=== PATIENT | female | born 1990 | race Caucasian/White ===

== ENCOUNTER 2022-09-05 13:59 | Emergency (ER) | payer MEDICAID, SELFPAY ==
[2022-09-05 14:18] VITALS: BP 118/72; PULSE 65; RESP 20; TEMP 36.8; O2SAT 10; BMI 45.7
--- NOTE | 2022-09-05 14:35 | XR_ITS ---
The [address] [address] Patient Name: JOLENE VALENTINO MRN: [id number] date: 1990 Sex: F Assigned Patient Location: ER Current Patient Location: ER Accession/Order Number: [id number] Exam Date: 09/05/2022 15:20 Report Date: 09/05/2022 15:38 At the request of: ZEKE BLOOM Procedure: XR ankle LT min 3V PROCEDURE: XR ankle LT min 3V HISTORY: pain ; left ankle pain; no known injury COMPARISON: None. FINDINGS: BONES:No fracture, acute abnormality, or significant arthropathy. SOFT TISSUES:Medial soft tissue swelling. EFFUSION:None visible. OTHER: Negative. IMPRESSION: 1. Soft tissue swelling of uncertain etiology. 2. No acute bone abnormality or appreciable degenerative joint disease. Electronically authenticated by: LEILANI ALANIS Date: 09/05/2022 15:38
[2022-09-05] MEDS: PREDNISONE 20 MG TABLET 40 MG PO (15:28)
--- NOTE | 2022-09-05 15:28 | ED.GENADUL1 ---
Documented by User: Moon Olea 09/05/22 17:15 HPI - General Adult General Chief complaint: Extremity Injury, Lower Stated complaint: LOWER EXREMITY PAIN LEFT ANKLE Time Seen by Provider: 09/05/22 14:19 Source: patient Mode of arrival: ambulance Limitations: no limitations History of Present Illness HPI narrative: 32-year-old female presents her with a chief complaint of left lateral ankle pain. She states she's had pain for the past week. Denies any known injury or trauma. No significant swelling. extremity is neurovascular intact. She states she does have a history of plantar fasciitis in the right ankle, foot no issues in the left previously. Related Data Home Medications Medication Instructions Recorded Confirmed amlodipine 5 mg tablet 5 mg PO DAILY 09/05/22 09/05/22 duloxetine 40 mg capsule,delayed 40 mg PO DAILY 09/05/22 09/05/22 release Previous Rx's Medication Instructions Recorded prednisone 50 mg tablet 50 mg PO DAILY 5 days #5 tabs 09/05/22 Allergies Allergy/AdvReac Type Severity Reaction Status Date / Time acetaminophen [From Vicodin] Allergy Severe Hives Verified 09/05/22 14:17 hydrocodone [From Vicodin] Allergy Severe Hives Verified 09/05/22 14:17 Review of Systems ROS Narrative All Systems are negative except as noted/marked.All systems reviewed and otherwise negative PFSH PFSH Social History Smoking status: Former smoker Exam Narrative Exam Narrative: Nurses note and vital signs reviewed and patient is not hypoxic. General: The patient appears well and in no apparent distress. Patient is resting comfortably on cart. Skin: Warm, dry, no pallor noted. There is no rash noted. Head: Normocephalic, atraumatic Eye: Normal conjunctiva, no drainage, EOMI. PERRL Back: non-tender, no CVA tenderness bilaterally to percussion. Musculoskeletal: Left lateral ankle tenderness no acute swelling deformity or dislocation. The patient has no evidence of calf tenderness, no pitting edema, symmetrical pulses noted bilaterally Neurological: A&O x4, normal speech Psychiatric: Cooperative Constitutional Vital Signs - 24 hr 09/05/22 14:18 09/05/22 16:06 Temperature 98.3 F Pulse Rate [Monitor] 65 67 Respiratory Rate 20 16 Blood Pressure [Left Arm] 118/72 148/96 H Pulse Oximetry 10 L 98 Oxygen Delivery Method Room Air Course Vital Signs Vital signs: Vital Signs Temperature 98.3 F 09/05/22 14:18 Pulse Rate 65 09/05/22 14:18 Respiratory Rate 20 09/05/22 14:18 Blood Pressure 118/72 09/05/22 14:18 Pulse Oximetry 10 L 09/05/22 14:18 Temperature 98.3 F 09/05/22 14:18 Pulse Rate 67 09/05/22 16:06 Respiratory Rate 16 09/05/22 16:06 Blood Pressure 148/96 H 09/05/22 16:06 Pulse Oximetry 98 09/05/22 16:06 Oxygen Delivery Method Room Air 09/05/22 16:06 Medical Decision Making MDM Narrative Medical decision making narrative: Patient presents her chief complaint left lateral ankle tenderness. X-ray shows no acute dislocation or disorder. Patient be given Maninder wrap and air splint and postop shoe. Exam is consistent with plantar fasciitis or ankle sprain. Patient told to wear postop shoe follow-up with orthopedics. Discharge Plan Discharge Chief Complaint: Extremity Injury, Lower Clinical Impression: Ankle sprain and strain Patient Disposition: Home, Self-Care Time of Disposition Decision: 15:33 Condition: Good Prescriptions / Home Meds: New prednisone 50 mg tablet 50 mg PO DAILY 5 Days Qty: 5 0RF No Action amlodipine 5 mg tablet 5 mg PO DAILY duloxetine 40 mg capsule,delayed release(DR/EC) 40 mg PO DAILY Stand Alone Forms: Work/School Release, Portal Instructions Referrals: Physician,Non-Staff, [Primary Care Provider] - 1 week Follow Up Appointments: [facility] Discharge Date/Time: 09/05/22 16:07 Documented by User: Raghav Peña MD 09/05/22 19:36 HPI - General Adult General Chief complaint: Extremity Injury, Lower Stated complaint: LOWER EXREMITY PAIN LEFT ANKLE Time Seen by Provider: 09/05/22 14:19 Related Data Home Medications Medication Instructions Recorded Confirmed amlodipine 5 mg tablet 5 mg PO DAILY 09/05/22 09/05/22 duloxetine 40 mg capsule,delayed 40 mg PO DAILY 09/05/22 09/05/22 release Previous Rx's Medication Instructions Recorded prednisone 50 mg tablet 50 mg PO DAILY 5 days #5 tabs 09/05/22 Allergies Allergy/AdvReac Type Severity Reaction Status Date / Time acetaminophen [From Vicodin] Allergy Severe Hives Verified 09/05/22 14:17 hydrocodone [From Vicodin] Allergy Severe Hives Verified 09/05/22 14:17 PFSH PFS Social History Smoking status: Former smoker Exam Constitutional Vital Signs - 24 hr 09/05/22 14:18 09/05/22 16:06 Temperature 98.3 F Pulse Rate [Monitor] 65 67 Respiratory Rate 20 16 Blood Pressure [Left Arm] 118/72 148/96 H Pulse Oximetry 10 L 98 Oxygen Delivery Method Room Air Course Vital Signs Vital signs: Vital Signs Temperature 98.3 F 09/05/22 14:18 Pulse Rate 65 09/05/22 14:18 Respiratory Rate 20 09/05/22 14:18 Blood Pressure 118/72 09/05/22 14:18 Pulse Oximetry 10 L 09/05/22 14:18 Temperature 98.3 F 09/05/22 14:18 Pulse Rate 67 09/05/22 16:06 Respiratory Rate 16 09/05/22 16:06 Blood Pressure 148/96 H 09/05/22 16:06 Pulse Oximetry 98 09/05/22 16:06 Oxygen Delivery Method Room Air 09/05/22 16:06 Medical Decision Making [facility] Narrative Medical decision making narrative: Patient presents her chief complaint left lateral ankle tenderness. X-ray shows no acute dislocation or disorder. Patient be given Maninder wrap and air splint and postop shoe. Exam is consistent with plantar fasciitis or ankle sprain. Patient told to wear postop shoe follow-up with orthopedics. Procedure note: Patient had Maninder wrap and air cast and postop shoe applied to left ankle and foot Splint was assisted with . the patient was neurovascularly intact before and after the splint was placed. the affected bones/injured area had proper alignment in a splint. Education on splint care at home was given at bedside. Patient and family have no questions at discharge. Critical Care Time Critical Care Time Attestation: I, Dr Peña, have reviewed the above progress note and course of action in the ER; agree with the above. I have personally seen and evaluated this patient, gone over history and physical, and discussed disposition and treatment plan with the patient. Discharge Plan Discharge Chief Complaint: Extremity Injury, Lower Clinical Impression: Ankle sprain and strain Patient Disposition: Home, Self-Care Time of Disposition Decision: 15:33 Condition: Good Prescriptions / Home Meds: New prednisone 50 mg tablet 50 mg PO DAILY 5 Days Qty: 5 0RF No Action amlodipine 5 mg tablet 5 mg PO DAILY duloxetine 40 mg capsule,delayed release(DR/EC) 40 mg PO DAILY Stand Alone Forms: Work/School Release, Portal Instructions Referrals: Physician,Non-Staff, MD [Primary Care Provider] - 1 week Follow Up Appointments: [facility] Discharge Date/Time: 09/05/22 16:07
[2022-09-05 16:06] VITALS: BP 148/96; PULSE 67; RESP 16; O2SAT 98
== END 2022-09-05 16:07 | disposition home or self-care (01) ==
PROVIDERS: Emergency Provider Emergency Medicine
DX: S93.402A Sprain of unspecified ligament of left ankle, initial encounter (principal); S96.911A Strain of unspecified muscle and tendon at ankle and foot level, right foot, initial encounter; Z79.899 Other long term (current) drug therapy
CPT/HCPCS: 73610; 99283

== ENCOUNTER 2022-09-17 15:03 | Outpatient (OUT) | payer MEDICAID, SELFPAY ==
--- NOTE | 2022-09-17 15:06 | XR_ITS ---
The [address] [address] Patient Name: JOLENE VALENTINO MRN: [id number] date: 1990 Sex: F Assigned Patient Location: [facility] Current Patient Location: [facility] Accession/Order Number: [id number] Exam Date: 09/17/2022 15:08 Report Date: 09/18/2022 00:15 At the request of: PHILOMENA LORD Procedure: XR ankle LT min 3V EXAM: XR ankle LT min 3V 09/17/2022 3:08 PM EDT OH001 CLINICAL STATEMENT: LEFT FOOT PAIN COMPARISON: No prior studies are available at the time of dictation. TECHNIQUE: AP and lateral views of the left ankle are submitted. FINDINGS: The osseous structures are intact and in anatomic alignment. There is no acute fracture and/or dislocation. Narrowed calcaneal pitch. The joint spaces are preserved. There is no significant joint effusion. Medial and anterior ankle soft tissue swelling. Bone mineralization is within normal limits for the patient's age. IMPRESSION: Medial and anterior ankle soft tissue swelling. No acute osseous abnormality. Electronically authenticated by: SOFIA HERNANDEZ Date: 09/18/2022 00:15
== END 2022-09-17 15:04 ==
LOC: RAD 15:03
PROVIDERS: Visit Provider Student in an Organized Health Care Education/Training Program
DX: M25.572 Pain in left ankle and joints of left foot (principal)
CPT/HCPCS: 73610

== ENCOUNTER 2022-11-12 15:00 | Outpatient (RCR) | payer MEDICAID, SELFPAY | END 2022-11-26 13:45 | disposition home or self-care (01) | LOC: PT 15:00 | PROVIDERS: Visit Provider Podiatrist Foot & Ankle Surgery | DX: M76.72 Peroneal tendinitis, left leg (principal); M25.579 Pain in unspecified ankle and joints of unspecified foot | CPT/HCPCS: 97014; 97035; 97110; 97112; 97140; 97162 ==

== ENCOUNTER 2022-12-09 14:10 | Emergency (ER) | payer MEDICAID, SELFPAY ==
[2022-12-09 14:31] VITALS: BP 136/92; PULSE 106; RESP 18; TEMP 37.9; O2SAT 97; BMI 44.9
--- NOTE | 2022-12-09 14:43 | ED_ITS ---
HPI - General Adult General Chief complaint: Weakness Stated complaint: COUGH Time Seen by Provider: 12/09/22 14:11 Source: patient Mode of arrival: walk-in Limitations: no limitations History of Present Illness HPI narrative: patient is a 32-year-old female with a 4-5 day history of Covid-type symptoms. 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 She states she has had generalized weakness, body aches, subjective fevers, congestion. She has had no sputum production, vomiting or diarrhea. She is accompanied by family member who was also being seen for upper respiratory type symptoms. She is not concerned for . No m edications taken prior to arrival. Related Data Home Medications Medication Instructions Recorded Confirmed amlodipine 5 mg tablet 5 mg PO DAILY 09/05/22 09/05/22 duloxetine 40 mg capsule,delayed 40 mg PO DAILY 09/05/22 09/05/22 release Previous Rx's Medication Instructions Recorded prednisone 50 mg tablet 50 mg PO DAILY 5 days #5 tabs 09/05/22 pvxjufxkusgzyht-yzizgdhgtdpndaa-IF 10 ml PO Q6H PRN cold symptoms 12/09/22 2 mg-30 mg-10 mg/5 mL oral syrup #200 mL (Bromfed DM) ondansetron 4 mg disintegrating 4 mg PO Q6H PRN nausea and 12/09/22 tablet vomiting #12 tabs Allergies Allergy/AdvReac Type Severity Reaction Status Date / Time acetaminophen [From Vicodin] Allergy Severe Hives Verified 09/05/22 14:17 hydrocodone [From Vicodin] Allergy Severe Hives Verified 09/05/22 14:17 Review of Systems ROS Constitutional Reports: fever, chills and fatigue Ears, nose, mouth, and throat Reports: nasal congestion; Denies: throat pain Cardiovascular Denies: chest pain Respiratory Reports: cough; Denies: shortness of breath Gastrointestinal Denies: nausea or vomiting Musculoskeletal Denies: back pain or neck pain Integumentary/Breast Denies: rash Neurological Denies: headache PFSH PFSH Social History Smoking status: Former smoker Exam Narrative Exam Narrative: Gen.: Awake, alert, in no distress Head: Normocephalic, atraumatic ENT: Moist mucous membranes Respiratory: No respiratory distress, lungs clear bilaterally Cardio: Regular rate and rhythm Extremities: Moves extremities equally, no injuries noted Psych: Normal mood and affect Neuro: No focal neuro deficit Skin: Warm, dry, intact Constitutional Vital Signs, click to edit/add: Last Vital Signs Temp 100.2 F 12/09/22 14:31 Pulse 106 H 12/09/22 14:31 Resp 18 12/09/22 14:31 BP 136/92 H 12/09/22 14:31 Pulse Ox 97 12/09/22 14:31 O2 Del Method Room Air 12/09/22 14:31 Course Vital Signs Vital signs: Vital Signs Temperature 100.2 F 12/09/22 14:31 Pulse Rate 106 H 12/09/22 14:31 Respiratory Rate 18 12/09/22 14:31 Blood Pressure 136/92 H 12/09/22 14:31 Pulse Oximetry 97 12/09/22 14:31 Oxygen Delivery Method Room Air 12/09/22 14:31 Temperature 100.2 F 12/09/22 14:31 Pulse Rate 106 H 12/09/22 14:31 Respiratory Rate 18 12/09/22 14:31 Blood Pressure 136/92 H 12/09/22 14:31 Pulse Oximetry 97 12/09/22 14:31 Oxygen Delivery Method Room Air 12/09/22 14:31 Medical Decision Making MDM Narrative Medical decision making narrative: Covid test is negative, vital signs stable in the Emergency Room. Patient will be medicated for symptoms, she has a benign exam. Follow-up with PCP and return to the Emergency Room if symptoms change or worsen Medical Records Medical records reviewed: Yes I reviewed the patient's medical records Lab Data Lab results reviewed: Yes I reviewed the patient's lab results Labs: Lab Results 12/09/22 Range/Units 14:35 SARS-CoV-2 (PCR) Negative (NEGATIVE) Discharge Plan Discharge Chief Complaint: Weakness Clinical Impression: URI (upper respiratory infection) Patient Disposition: Home, Self-Care Time of Disposition Decision: 16:05 Condition: Good Prescriptions / Home Meds: New qpzswfryactuvzb-bxkfazeeq-GZ [Bromfed DM] 2-30-10 mg/5 mL syrup 10 ml PO Q6H PRN (Reason: cold symptoms) Qty: 200 0RF ondansetron 4 mg tablet,disintegrating 4 mg PO Q6H PRN (Reason: nausea and vomiting) Qty: 12 0RF No Action amlodipine 5 mg tablet 5 mg PO DAILY duloxetine 40 mg capsule,delayed release(DR/EC) 40 mg PO DAILY prednisone 50 mg tablet 50 mg PO DAILY 5 Days Qty: 5 0RF Instructions: Upper Respiratory Infection (ED) Stand Alone Forms: Portal Instructions Referrals: Physician,Non-Staff, MD [Primary Care Provider] - 1 week
[2022-12-09] MEDS: DEXAMETHASONE SODIUM PHOSPHATE 10 MG/ML VIAL PO (15:07)
[2022-12-09] MEDS: KETOROLAC TROMETHAMINE 10 MG TABLET PO (15:07)
[2022-12-09 15:59] LABS: SARS-CoV-2 Ag NEGATIVE (NEGATIVE)
[2022-12-11 11:39] LABS: SARS-CoV-2 NAA NOT DETECTED (NOT DETECTE)
== END 2022-12-09 16:13 | disposition home or self-care (01) ==
PROVIDERS: Physician Assistant; Emergency Provider Emergency Medicine
DX: J06.9 Acute upper respiratory infection, unspecified (principal); R50.9 Fever, unspecified; Z79.899 Other long term (current) drug therapy; Z87.891 Personal history of nicotine dependence; Z20.822 Contact with and (suspected) exposure to COVID-19
CPT/HCPCS: 87635; 87811; 99283; J1100; U0003

== ENCOUNTER 2023-01-13 13:30 | Outpatient (OUT) | payer MEDICAID, SELFPAY ==
--- NOTE | 2023-01-13 | XR_ITS ---
The [address] [address] Patient Name: JOLENE VALENTINO MRN: [id number] date: 1990 Sex: F Assigned Patient Location: [facility] Current Patient Location: [facility] Accession/Order Number: [id number] Exam Date: 01/13/2023 13:45 Report Date: 01/13/2023 17:00 At the request of: CHRISTINA FERMIN Procedure: XR ankle LT min 3V XR ankle LT min 3V, 01/13/2023 1:45 PM EDT, OH001 INDICATION: LEFT ANKLE PAIN COMPARISON: Radiographs from 09/17/2022. TECHNIQUE: AP, lateral and oblique views of the ankle are submitted. FINDINGS: The bones appear well mineralized. No acute fracture or subluxation is identified. The joint spaces are maintained. No destructive osseous process is identified. There is lateral soft tissue swelling. Moderate pes planus is again noted. XR/XR ankle LT min 3V IMPRESSION: Lateral soft tissue swelling. No acute osseous injury with intact ankle mortise. Electronically authenticated by: KATLYN MONTIEL Date: 01/13/2023 17:00
== END 2023-01-13 13:31 | disposition home or self-care (01) ==
LOC: RAD 13:31
PROVIDERS: Visit Provider Physician Assistant
DX: M76.72 Peroneal tendinitis, left leg (principal)
CPT/HCPCS: 73610

== ENCOUNTER 2023-01-27 10:07 | Outpatient (OUT) | payer MEDICAID, SELFPAY ==
--- NOTE | 2023-01-27 | MR_ITS ---
The [address] [address] Patient Name: JOLENE VALENTINO MRN: [id number] date: 1990 Sex: F Assigned Patient Location: MRI Current Patient Location: MRI Accession/Order Number: [id number] Exam Date: 01/27/2023 10:17 Report Date: 01/27/2023 13:07 At the request of: REGIS VELEZ Procedure: MR ankle LT wo con HISTORY: Chronic lateral left ankle pain. Evaluate for possible peroneal tendon tear. MR ankle LT wo con: 01/27/2023, 10:17 AM EDT COMPARISON: Radiographs left ankle 01/13/2023. TECHNIQUE: Multiplanar, multisequence MRI images of the ankle were obtained without contrast. FINDINGS: A few images are slightly degraded by motion artifact. LIGAMENTS: The anterior talofibular ligament appears within normal limits. The calcaneofibular ligament, posterior talofibular ligament, and distal tibiofibular ligaments appear within normal limits. The deltoid ligament complex appears within normal limits. The superior peroneal retinaculum appears grossly intact. TENDONS: There is lateral subluxation of the peroneus longus tendon from the retromalleolar groove. There is evidence of severe tendinopathy of the inframalleolar portion of the peroneus brevis tendon and there is a large longitudinal split tear of the tendon in this region extending distally 4.5 cm. The other tendons of the ankle appear within normal limits. SINUS TARSI AND TARSAL TUNNEL: No space-occupying mass is seen in the tarsal tunnel or the sinus tarsi. BONES AND JOINTS: The bone marrow signal intensity is age appropriate. No unstable osteochondral defect of the tibiotalar joint is identified. There are mild degenerative changes of the dorsal aspect of the talonavicular joint. PLANTAR FASCIA: There is no abnormal thickening or abnormal signal intensity of the plantar fascia and there is no surrounding soft tissue edema to suggest plantar fasciitis. SOFT TISSUES: No significant soft tissue swelling is seen. MR/MR ankle LT wo con IMPRESSION: 1. There is severe tendinopathy of the inframalleolar portion of the peroneus brevis tendon and there is a longitudinal split tear of the tendon extending from the inframalleolar region distally 4.5 cm. There is also lateral subluxation of the peroneus longus tendon from the retromalleolar groove, but no significant tendinopathy or tear of this tendon is seen. 2. No ligament injury or osteochondral defect is seen. Electronically authenticated by: LUZ ROACH Date: 01/27/2023 13:07
== END 2023-01-27 10:08 | disposition home or self-care (01) ==
LOC: MRI 10:07
PROVIDERS: Visit Provider Podiatrist Foot & Ankle Surgery
DX: S96.812A Strain of other specified muscles and tendons at ankle and foot level, left foot, initial encounter (principal); M76.72 Peroneal tendinitis, left leg
CPT/HCPCS: 73721

== ENCOUNTER 2023-04-07 13:34 | Outpatient (OUT) | payer MEDICAID, SELFPAY ==
--- NOTE | 2023-04-07 13:40 | ECG_ITS ---
The [facility] Test Date: 2023-04-07 Pat Name: JOLENE VALENTINO Department: Room: - Gender: Female [employer]: : 1990 Requested By: REGIS VELEZ Order Number: [id number] Reading MD: ARLENE BELTRAN Measurements Intervals [place] Rate: 61 P: 28 MO: 152 QRS: 27 QRSD: 101 T: -1 QT: 382 QTc: 386 Interpretive Statements SINUS RHYTHM Compared to ECG 12/26/2020 10:31:00 Electronically Signed On 04-07-2023 22:24:45 EST by ARLENE BELTRAN
--- NOTE | 2023-04-07 14:17 | PM.PRESUREVA ---
History of Present Illness History of Present Illness Chief complaint: other specified joint disorders left foot Narrative: Patient presents for preadmission testing. The patient reports left ankle pain. The pain is worse with ambulation and certain activities. It is better with rest. She states she did not have any known trauma or injury but she's been having pain for a few months. She denies numbness, tingling, weakness, or any other complaints. She states she did take meloxicam but it did not help with her discomfort. Review of Systems ROS Narrative REVIEW OF SYSTEMS: Negative except as stated in HPI, ten or more systems reviewed. Constitutional: No fever , chills, weakness ENT: No sore throat or epistaxis Cardiovascular: No edema, chest pain, palpitations, or activity intolerance Respiratory: No shortness of breath, cough, or wheezing Gastrointestinal: No abdominal pain, constipation, diarrhea, or vomiting Genitourinary: No dysuria or hematuria Neurological: No numbness, tingling, weakness, or headache Psychiatric: No mood changes PFSH [facility] Medical History (Updated 04/07/23 @ 14:22 by Denise Reynolds NP) Peroneal tendinitis ?M76.70 - Peroneal tendinitis, unspecified leg (ICD-10) Strain of left peroneal muscle or tendon ?S86.312A - Strain of muscle(s) and tendon(s) of peroneal muscle group at lower leg level, left leg, initial encounter (ICD-10) Left ankle instability ?M25.372 - Other instability, left ankle (ICD-10) Heartburn ?R12 - Heartburn (ICD-10) Migraine ?G43.909 - Migraine, unspecified, not intractable, without status migrainosus (ICD-10) Anxiety ?F41.9 - Anxiety disorder, unspecified (ICD-10) Depression ?F32.A - Depression, unspecified (ICD-10) PONV (postoperative nausea and vomiting) ?R11.2 - Nausea with vomiting, unspecified (ICD-10) ?Z98.890 - Other specified postprocedural states (ICD-10) Menorrhagia ?N92.0 - Excessive and frequent menstruation with regular cycle (ICD-10) Dysmenorrhea ?N94.6 - Dysmenorrhea, unspecified (ICD-10) Abnormal uterine bleeding (AUB) ?N93.9 - Abnormal uterine and vaginal bleeding, unspecified (ICD-10) GERD (gastroesophageal reflux disease) ?K21.9 - Gastro-esophageal reflux disease without esophagitis (ICD-10) Fibromyalgia ?M79.7 - Fibromyalgia (ICD-10) Kidney stones (~2012) ?N20.0 - Calculus of kidney (ICD-10) Anemia (~2014) ?D64.9 - Anemia, unspecified (ICD-10) Leg pain ?M79.606 - Pain in leg, unspecified (ICD-10) Pain, dental ?K08.89 - Other specified disorders of teeth and supporting structures (ICD-10) Flank pain ?R10.9 - Unspecified abdominal pain (ICD-10) Headache ?R51.9 - Headache, unspecified (ICD-10) Plantar fasciitis ?M72.2 - Plantar fascial fibromatosis (ICD-10) Equinus contracture of ankle ?M24.573 - Contracture, unspecified ankle (ICD-10) Foot pain ?M79.673 - Pain in unspecified foot (ICD-10) Posterior tibial tendon dysfunction (PTTD) of right lower extremity ?M76.821 - Posterior tibial tendinitis, right leg (ICD-10) Hypertension ?I10 - Essential (primary) hypertension (ICD-10) Superficial laceration of thumb (10/22/20) ?S61.019A - Laceration without foreign body of unspecified thumb without damage to nail, initial encounter (ICD-10) Surgical History (Updated 04/07/23 @ 13:33 by Denise Reynolds NP) H/O arthroscopy of knee ?Z98.890 - Other specified postprocedural states (ICD-10) H/O section (~2014) ?Z98.891 - History of uterine scar from previous surgery (ICD-10) History of cholecystectomy (~2012) ?Z90.49 - Acquired absence of other specified parts of digestive tract (ICD-10) H/O tubal ligation ?Z98.51 - Tubal ligation status (ICD-10) H/O foot surgery (12/22/19) ?Z98.890 - Other specified postprocedural states (ICD-10) History of endometrial ablation (01/04/21) ?Z98.890 - Other specified postprocedural states (ICD-10) Family History (Updated 04/07/23 @ 13:27 by Denise Reynolds NP) Other Family history of cancer Family history of diabetes mellitus Family history of hypertension Family history of stroke Social History (Updated 04/07/23 @ 13:58 by Denise Reynolds NP) Within the past year, how often did you have a drink containing alcohol: never Score interpretation: A score less than 3 is consistent with normal alcohol consumption. 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 2-Lele) lisinopril 20 2 tab PO DAILY 04/07/23 04/07/23 History mg-hydrochlorothiazide 12.5 mg tablet meloxicam 15 mg tablet 15 mg PO DAILY 04/07/23 04/07/23 History metformin 500 mg tablet,extended 500 mg PO DAILY 04/07/23 04/07/23 History release 24 hr omeprazole 20 mg capsule,delayed 20 mg PO DAILY 04/07/23 04/07/23 History release Allergies Allergy/AdvReac Type Severity Reaction Status Date / Time acetaminophen [From Vicodin] Allergy Severe Hives Verified 04/07/23 13:54 hydrocodone [From Vicodin] Allergy Severe Hives Verified 04/07/23 13:54 Exam Narrative Exam Narrative: Constitutional: Awake, alert, comfortable, well-appearing, nontoxic, interactive, vital signs as charted Head: Normocephalic, atraumatic Neck: Supple, normal appearance, normal range of motion, no meningeal signs, no lymphadenopathy Respiratory: No respiratory distress, breath sounds clear Cardiovascular: Regular rate and rhythm, strong and regular heart tones Musculoskeletal: Left posterior ankle tenderness with palpation, range of motion limited due to pain, good capillary refill, sensation intact Skin: No rashes or induration, no lesions, only visible skin inspected Neuro: No neurological deficits, normal sensation Psychiatric: Oriented ?3, normal affect Assessment and Plan Assessment and Plan (1) Left ankle instability: (2) Strain of left peroneal muscle or tendon: (3) Peroneal tendinitis: Plan Left ankle arthroscopy with ligament and tendon repairs as needed scheduled with Dr. Mayorga 04/16/2023.
[2023-04-07 14:20] LABS: Basophils Percent Auto 0.1 % (0.2-2.0); Eosinophils Absolute Auto 0.1 10^3/uL (0.0-0.7); Eosinophils Percent Auto 0.7 % (0.9-7.0); Hematocrit 38.7 % (36.0-48.0); Hemoglobin 12.2 g/dL (12.0-16.0); Immature Granulocytes Abs Auto 0.02 10^3/uL (0.00-0.03); Immature Granulocytes Pct Auto 0.2 % (0.0-0.5); Lymphocytes Absolute Auto 2.1 10^3/uL (1.2-3.8); Lymphocytes Percent Auto 25.5 % (20.5-60.0); Mean Corpuscular HGB Conc 31.5 g/dL (29.9-35.2); Mean Corpuscular Hemoglobin 28.2 pg (26.7-34.0); Mean Corpuscular Volume 89.4 fL (81.0-99.0); Monocytes Absolute Auto 0.5 10^3/uL (0.3-0.8); Neutrophils Absolute Auto 5.5 10^3/uL (1.4-6.5); Neutrophils Percent Auto 67.5 % (43.0-75.0); Platelet Count 232 10^3/uL (150-450); Red Blood Count 4.33 10^6/uL (4.20-5.40); Red Cell Distribution Width 12.4 % (11.0-15.0); White Blood Count 8.2 10^3/uL (4.0-11.0)
[2023-04-07 14:52] LABS: BUN Creatinine Ratio 16.4; Calcium 9.4 mg/dL (8.5-10.1); Carbon Dioxide 28.3 mmol/L (21.0-32.0); Chloride 102 mmol/L (98-107); Estimated GFR (African America >60 (>=60); Estimated GFR (Non-African Ame >60 (>=60); Glucose 108 mg/dL (74-106); Potassium 3.3 mmol/L (3.5-5.1); Sodium 135 mmol/L (136-145)
== END 2023-04-07 13:35 | disposition home or self-care (01) ==
LOC: PST 13:37
PROVIDERS: PCP Nurse Practitioner Family; Visit Provider Podiatrist Foot & Ankle Surgery
DX: Z01.812 Encounter for preprocedural laboratory examination (principal); Z01.810 Encounter for preprocedural cardiovascular examination; Z01.818 Encounter for other preprocedural examination; M25.872 Other specified joint disorders, left ankle and foot; M25.372 Other instability, left ankle
CPT/HCPCS: 80048; 85025; 93005; G0463

== ENCOUNTER 2023-04-16 06:06 | Day surgery (SDC) | payer MEDICAID, SELFPAY ==
[2023-04-07 14:15] VITALS: BP 126/84; PULSE 72; RESP 18; TEMP 36.3; O2SAT 98; BMI 44.1
[2023-04-16] VITALS (11 sets, daily range): BP systolic 110–143; BP diastolic 68–92; PULSE 60–79; RESP 13–18; TEMP 36–37.5; O2SAT 90–99; BMI 44.8
--- OUTSIDE RECORDS SUMMARY | 2023-04-16 06:08 | XMS_ITS | CCD ---
Author Name Unknown Address [address] [place] [address] Organization [facility] Care Team Providers Care Gaming Cage Cashier Name Role Phone Ranjith Tracy Attending Unavailable PETAR AKINS~[phone] UNKNOWN Primary Care Unavailable Easterwood, Tea Unavailable Natalie Blackwell Unavailable Johann Moe Unavailable EASTERWOOD, TEA Admitting Unavailable EASTERWOOD, TEA Primary Care Unavailable EASTERWOOD, TEA Attending Unavailable BARRINGTON KEARNS Attending Unavailable EASTERWOOD, TEA Primary Care Unavailable AMARI ., AMBROCIO PAULINO Consulting Unavailabl e BARRINGTON KEARNS Admitting Unavailable NATALIE HERNANDEZ Consulting Unavailable BEKA REYNOSO Consulting Unavailable EASTERWOOD, TEA Attending Unavailable REYES, OLI Primary Care Unavailable EASTERWOOD, TEA Admitting Unavailable LISSA ., DR HERNANDEZ Attending Unavailable LISSA ., DR HERNANDEZ Admitting Unavailable REYES, OLI Primary Care Unavailable LISSA ., DR HERNANDEZ Consulting Unavailable REYES, OLI Consulting Unavailable REYES, OLI Attending Unavailable REYES, OLI Admitting Unavailable REYES, OLI Primary Care Unavailable EASTERWOOD, TEA Admitting Unavailable EASTERWOOD, TEA Primary Care Unavailable EASTERWOOD, TEA Consulting Unavailable EASTERWOOD, TEA Attending Unavailable EASTERWOOD, TEA Primary Care Unavailable EASTERWOOD, TEA Attending Unavailable DR LEILANI ALANIS Consulting Unavailable EASTERWOOD, TEA Admitting Unavailable EASTERWOOD, TEA Consulting Unavailable oMises Mccabe Unavailable Neftali Snow Unavailable RUTH ANN Donovan Primary Care Provider MD Johann Moe Attending Provider Uriah Skinner Unavailable Elinor Workman Unavailable RUTH ANN Donovan Primary Care Provider RUTH ANN Donovan Attending Provider [phone] MD Uriah Skinner Attending Provider [phone] MD Karoline Londono Jr Emergency Provider Karoline Londono Jr Attending Unavailable Tea Donovan Primary Care Unavailable Karoline Londono Jr Admitting Unavailable Tea Donovan Primary Care Unavailable Uriah Skinner Admitting Unavailable Uriah Skinner Attending Unavailable Tea Donovan Admitting Unavailable Tea Donovan Primary Care Unavailable Tea Donovan Attending Unavailable Tea Donovan Primary Care Unavailable Johann Moe Admitting Unavailable Johann Moe Attending Unavailable Allergies Allergy Classification Reported Allergen(s) Allergy Type Date of Onset Reaction(s) Facility (20 sources) Acetaminophen / HYDROcodone; Translations: [Vicodin] Drug Allergy 6 itching and hives [facility] Repository (20 sources) busPIRone Drug Allergy 2 [facility] Other (20 sources) Cephalexin Drug Allergy 3 [employer] [facility] Other (1 source) Cephalexin Drug Allergy 2 [facility] Repository (4 sources) HYDROcodone; Translations: [hydrocodone] Drug Allergy 9 Itching [facility] Medications Current Medications Medication Drug Class(es) Dates Sig (Normalized) Sig (Original) 0.5 ML tirzepatide 5 MG/ML Auto-Injector [Mounjaro] (2 sources) Start: 08-12-2022 inject 2.5 mg by subcutaneous injection every week Mounjaro 2.5 MG/0.5ML 2.5mg Subcutaneous weekly for 30 days July, Active amLODIPine 5 mg oral tablet (20 sources) Dihydropyridine Calcium Channel Gogo Start: 07-28-2022 take 5 mg by mouth once daily Amlodipine Active 5 MG PO Daily July 27, 2022 11:00pm take 2 tablets by mouth once con ly amLODIPine Besylate 2.5 MG 2 tabs Orally Once a day for 30 days *INCREASETO 2 tabs daily=5mg* Active take 1 tablet by wing th every twenty-four hours amLODIPine Besylate 2.5 MG 1 tablet Oral ly Once a day for 90 days Active amoxicillin 500 mg oral capsule (1 source) Penicillin-class Antibacterial Start: 12-11-2022 take 1 capsule by mouth every twelve hours Amoxicillin 500 MG 1 tablet Orally every 12 hrs for 10 days Nov, Active busPIRone hydrochloride 15 mg oral tablet (13 sources) take 2 tablets by mouth once daily busPIRone HCl 15 MG 2 tabs Orally once a day for 30 days Active take 1 tablet by wing th every twenty-four hours busPIRone HCl 15 MG 1 tablet at bedtime Orally once a day for 30 days Active take 1 tablet by wing th every twenty-four hours busPIRone HCl 10 MG 1 tablet at bedtime Orally once a day for 14 days Active cephalexin 500 mg oral capsule (8 sources) Cephalosporin Antibacterial Start: 05-08-2022 take 1 capsule by mouth every twelve hours Cephalexin 500 MG 1 capsule Orally every 12 hrs for 7 days Apr, Active cyclobenzaprine hydrochloride 10 mg oral tablet (20 sources) Muscle Relaxant Start: 10-14-2021 take 1 tablet by mouth every twenty-four hours Cyclobenzaprine HCl 10 MG 1 tablet at bedtime as needed Orally Once a day for 30 days Sep, Active DULoxetine 40 mg delayed release oral capsule (20 sources) Serotonin and Norepinephrine Reuptake Inhibitor Start: 06-23-2022 take 1 capsule by mouth every twenty-four hours DULoxetine HCl 40 MG 1 capsule Orally Once a day for 90 days May, Active Start: 06-23-2022 take 30 mg by mouth once daily Duloxetine Active 30 MG PO Daily July 27, 2022 11:00pm fluticasone propionate 0.05 mg/actuat metered dose nasal spray (20 sources) Corticosteroid Start: 07-28-2022 Fluticasone Pr opionate Active 1 SPRAY INTRANASAL Daily July 27, 2022 11:00pm Start: 01-22-2022 take 2 spray(s) nasa l route once daily Fluticasone Propionate 50 MCG/ACT 2 sprays Nasally Once a day for 14 day(s) Dec, Not-Taking hydroCHLOROthiazide 12.5 mg / lisinopril 20 mg oral tablet (20 sources) Thiazide Diuretic, Angiotensin Converting Enzyme Inhibitor Start: 07-28-2022 take 1 tablet by mouth once daily Lisinopril-Hydrochlorothiazide Active 1 TAB PO Daily July 27, 2022 11:00pm take 2 tablets by mo [facility] once daily Lisinopril-hydroCHLOROthiazide 20-12.5 M G 2 tablet Orally Once a day Active take 2 tablets by mo [facility] every twenty-four hours hydrocortisone 5 mg/ml topical cream (2 sources) Corticosteroid Start: 02-23-2023 Hydrocortisone 0.5 % 1 application Externally Twice a day for 14 days Jan, Active Start: 02-23-2023 Hydrocortisone 0.5 % 1 application Externally Twice a day for 14 days Jan, Active 3 ml liraglutide 6 mg/ml pen injector (7 sources) GLP-1 Receptor Agonist Start: 01-06-2023 inject 0.6 mg by subcutaneous injection once daily, then inject 0.6 mg by subcutaneous injection every week, then inject 1.8 mg by subcutaneous injection once daily Victoza 18 MG/3ML Take 0.6 mg daily and if no side effects go up by 0.6 mg weekly up to a total of 1.8 mg Subcutaneous daily for 30 days Dec, Active inject 1.8 mg by sub cutaneous injection once daily Victoza 18 MG/3ML 1.8 mg Subcutaneous daily for 30 days Active 24 hr metFORMIN hydrochloride 500 mg extended release oral tablet (12 sources) Biguanide Start: 10-14-2022 take 1 tablet by mouth every twenty-four hours metFORMIN HCl ER 500 MG 1 tablet with breakfast Orally Once a day for 30 day(s) Sep, Active omeprazole 40 mg delayed release oral capsule (20 sources) Proton Pump Inhibitor Start: 02-14-2022 take 1 capsule by mouth once daily Omeprazole 40 MG 1 capsule 30 minutes before morning meal Orally Once a day for 90 days Jan, Active Start: 02-14-2022 take 20 mg by mouth once daily Omeprazole Active 20 MG PO Daily July 27, 2022 11:00pm Start: 09-17-2021 take 1 capsule by mo uth every twenty-four hours Omeprazole 10 MG 1 capsule Orally Once a day for 30 day(s) Aug, Active phentermine hydrochloride 37.5 mg oral tablet (11 sources) Sympathomimetic Amine Anorectic Start: 05-01-2022 take 1 tablet by mouth once daily Phentermine HCl 37.5 MG 1 tablet Orally Once a day for 30 days Apr, Active Start: 02-13-2022 take 1 capsule by mo uth every twenty-four hours Phentermine HCl 37.5 MG 1 capsule Orally Once a day for 30 days Jan, Active predniSONE 20 mg oral tablet (3 sources) Start: 01-22-2022 take 1 tablet by mouth every twelve hours predniSONE 20 MG 1 tablet Orally 2 times a day for 5 day(s) Dec, Active 24 hr venlafaxine 75 mg extended release oral capsule (20 sources) Serotonin and Norepinephrine Reuptake Inhibitor take 1 capsule by mouth every twenty-four hours Venlafaxine HCl ER 75 MG 1 capsule with food Orally Once a day for 90 days Active take 1 capsule by mo uth every twenty-four hours Venlafaxine HCl ER 37.5 MG 1 capsule wit h food Orally Once a day Active Completed/Discontinued Medications Medication Drug Class(es) Dates Sig (Normalized) Sig (Original) cefTRIAXone (20 sources) Cephalosporin Antibacterial Start: 01-21-2010 Rocephin 500 mg Dec, 500MG/2ML mupirocin 0.02 mg/mg topical ointment (3 sources) RNA Synthetase Inhibitor Antibacterial Start: 07-07-2018 End: 07-28-2022 Mupirocin Discontinued 1 APPLIC TOPICAL Twice daily July 06, 2018 11:00pm July 28, 2022 12:33pm sulfamethoxazole 800 mg / trimethoprim 160 mg oral tablet (3 sources) Dihydrofolate Reductase Inhibitor Antibacterial, Sulfonamide Antimicrobial Start: 07-07-2018 End: 07-28-2022 take 1 tablet by mouth twice daily Sulfamethoxazole- Trimethoprim (Bactrim Ds) 800-160 mg tablet Discontinued 1 TAB PO Twice daily July 06, 2018 11:00pm July 28, 2022 12:33pm Problems Active Problems Problem Classification Problem Date Documented Da te Episodic/Chronic Anxiety disorders (20 sources) Anxiety; Translations: [Anxiety disorder, unspecified] Onset: 2 Resolved: 2 Chronic Coma; stupor; and brain damage (20 sources) Daytime somnolence; Translations: [Somnolence] Onset: 2 Resolved: 2 Episodic Diseases of mouth; excluding dental (20 sources) Disorder of tongue; Translations: [TONGUE DISORDER NOS] Episodic Disorders of lipid metabolism (20 sources) Hyperlipidemia; Translations: [Hyperlipidemia, unspecified] Onset: 2 Resolved: 2 Chronic Esophageal disorders (20 sources) Gastroesophageal reflux disease without esophagitis; Translations: [Gastro-esophageal reflux disease without esophagitis] Onset: 2 Resolved: 2 Chronic Essential hypertension (20 sources) Hypertensive disorder; Translations: [Hypertension, unspecified] Onset: 2 Resolved: 2 Chronic Gastritis and duodenitis (20 sources) Duodenitis; Translations: [Duodenitis without bleeding] Onset: 2 Episodic Genitourinary symptoms and ill-defined conditions (20 sources) Female genital organ symptoms; Translations: [Unspecified symptom associated with female genital organs] Episodic Headache; including migraine (14 sources) Migraine; Translations: [Migraine, unspecified, not intractable, without status migrainosus] Chronic Immunizations and screening for infectious disease (20 sources) Contact with and (suspected) exposure to other viral communicable diseases; Translations: [Encounter for screening for human papillomavirus (HPV)] Onset: 2 Episodic Malaise and fatigue (20 sources) Fatigue; Translations: [Chronic fatigue, unspecified] Onset: 2 Resolved: 2 Chronic Malaise and fatigue (1 source) Other fatigue; Translations: [OTHER FATIGUE] Onset: 3 Episodic Miscellaneous mental health disorders (20 sources) Psychophysiologic insomnia; Translations: [Psychophysiologic insomnia] Chronic Mood disorders (20 sources) Depressive disorder; Translations: [Depression, unspecified depression type] Chronic Other aftercare (1 source) Other intermodal customer service (current) drug therapy; Translations: [OTH BODY SHOP TECHNICIAN CURRENT DRUG THERAPY] Onset: 3 Episodic Other aftercare (1 source) Encounter for follow-up examination after completed treatment for conditions other than malignant neoplasm Episodic Other aftercare (2 sources) Encounter for therapeutic drug level monitoring; Translations: [Encounter for therapeutic drug level monitoring] Onset: 3 Episodic Other connective tissue disease (20 sources) Fibromyalgia; Translations: [Fibromyalgia] Episodic Other ear and sense organ disorders (20 sources) Otalgia; Translations: [Otalgia, unspecified] Episodic Other eye disorders (20 sources) Subconjunctival hemorrhage; Translations: [Conjunctival hemorrhage, left eye] Episodic Other eye disorders (1 source) Conjunctival hemorrhage, left eye Episodic Other gastrointestinal disorders (15 sources) Diarrhea; Translations: [Diarrhea, unspecified] Episodic Other gastrointestinal disorders (1 source) Diarrhea, unspecified Episodic Other injuries and conditions due to external causes (15 sources) Contusion; Translations: [Other injury of unspecified body region, initial encounter] Episodic Other injuries and conditions due to external causes (1 source) Other injury of unspecified body region, initial encounter Episodic Other liver diseases (20 sources) Steatosis of liver; Translations: [Fatty (change of) liver, not elsewhere classified] Chronic Other liver diseases (5 sources) Fatty (change of) liver, not elsewhere classified; Translations: [Fatty (change of) liver, not elsewhere classified] Onset: 2 Resolved: 2 Chronic Other lower respiratory disease (2 sources) Snoring Episodic Other nervous system disorders (3 sources) Unspecified mononeuropathy of unspecified upper limb; Translations: [Neuropathy of hand, unspecified laterality] Chronic Other nervous system disorders (20 sources) Neuropathy of upper limb; 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] Chronic Other nervous system disorders (5 sources) Paresthesia of skin; Translations: [PARESTHESIA OF SKIN] Onset: 3 Episodic Other nervous system disorders (20 sources) Sensory symptoms; Translations: [Paresthesia of skin] Episodic Other nutritional; endocrine; and metabolic disorders (20 sources) Body mass index 40+ - severely obese; Translations: [Body mass index (BMI) 40.0-44.9, adult] Chronic Other nutritional; endocrine; and metabolic disorders (20 sources) Obesity; Translations: [Obesity, unspecified] Chronic Other nutritional; endocrine; and metabolic disorders (2 sources) Obesity, unspecified Onset: 2 Resolved: 2 Chronic Other nutritional; endocrine; and metabolic disorders (3 sources) Morbid (severe) obesity due to excess calories Chronic Other nutritional; endocrine; and metabolic disorders (3 sources) Body mass index (BMI) 45.0-49.9, adult Chronic Other nutritional; endocrine; and metabolic disorders (9 sources) Obese class II; Translations: [Body mass index (BMI) 35.0-35.9, adult] Chronic Other nutritional; endocrine; and metabolic disorders (20 sources) Weight gain; Translations: [Abnormal weight gain] Episodic Other nutritional; endocrine; and metabolic disorders (4 sources) Abnormal weight gain Onset: 2 Resolved: 2 Episodic Other screening for suspected conditions (not mental disorders or infectious disease) (20 sources) Imaging result abnormal; Translations: [Abnormal findings on diagnostic imaging of other specified body structures] Chronic Other skin disorders (5 sources) Generalized hyperhidrosis; Translations: [GENERALIZED HYPERHIDROSIS] Onset: 3 Episodic Other upper respiratory infections (2 sources) Acute upper respiratory infection, unspecified; Translations: [Streptococcal pharyngitis] Onset: 2 Episodic Residual codes; unclassified (20 sources) Disturbance in sleep behavior; Translations: [Sleep disorder, unspecified] Episodic Residual codes; unclassified (1 source) Altered mental status, unspecified; Translations: [Altered mental status, unspecified] Onset: 3 Episodic Screening and history of mental health and substance abuse codes (1 source) Personal history of nicotine dependence; Translations: [PERSONAL HISTORY OF NICOTINE DEPEND] Onset: 3 Episodic Spondylosis; intervertebral disc disorders; other back problems (20 sources) Low back pain; Translations: [Low back pain] Episodic Substance-related disorders (1 source) Cannabis intoxication; Translations: [Cannabis use, unspecified with intoxication, unspecified] 03-28-2023 Episodic Unclassified (6 sources) Contraceptive surveillance, implantable subdermal; Translations: [Contraceptive surveillance, implantable subdermal] Unclassified (1 source) Low back pain, unspecified back pain laterality, unspecified chronicity, unspecified whether sciatica present; Translations: [Low back pain, unspecified back pain laterality, unspecified chronicity, unspecified whether sciatica present] Unclassified (3 sources) LOW BACK PAIN, UNSPECIFIED; Translations: [LOW BACK PAIN, UNSPECIFIED] Onset: 2 Unclassified (3 sources) CONTACT W/AND (SUSP) EXPOS COVID-19; Translations: [CONTACT W/AND (SUSP) EXPOS COVID-19] Onset: 2 Unclassified (1 source) Dietary counseling and surveillance; Translations: [Dietary counseling and surveillance] Onset: 3 Urinary tract infections (20 sources) Urinary tract infectious disease; Translations: [UTI [Urinary tract infection]] Onset: 3 Episodic Viral infection (1 source) Viral infection, unspecified Episodic Past or Other Problems Problem Classification Problem Date Documented Date Episodic/Chronic Abdominal pain (20 sources) Upper abdominal pain; Translations: [Upper abdominal pain, unspecified] Onset: 09-26-2021 Resolved: 10-14-2021 Episodic Mood disorders (5 sources) Mood disorders Onset: 09-17-2021 Resolved: 10-29-2021 Other connective tissue disease (1 source) Fibromyalgia Onset: 09-17-2021 Resolved: 09-17-2021 Episodic Other screening for suspected conditions (not mental disorders or infectious disease) (4 sources) Encounter for screening for malignant neoplasm of cervix; Translations: [ENC SCREENING MALIG NEOPLASM CERV] Onset: 07-10-2021 Episodic Residual codes; unclassified (1 source) Sleep disorder, unspecified Onset: 09-17-2021 Resolved: 09-17-2021 Episodic Unclassified (20 sources) care; Translations: [Supervision of other normal ] Unclassified (20 sources) Routine follow-up; Translations: [Routine follow-up] Unclassified (20 sources) Contraception care management; Translations: [Contraceptive management] Unclassified (20 sources) Gynecological examination normal; Translations: [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 SALES 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 EXAM W/WO PAP] Unclassified (5 sources) Low back pain, unspecified back pain laterality, unspecified chronicity, unspecified whether sciatica present M54.50 Onset: 10-14-2021 Resolved: 11-19-2021 Unclassified (20 sources) Surveillance of subcutaneous contraceptive implant done; Translations: [Contraceptive surveillance, implantable subdermal] Unclassified (1 source) LOW BACK PAIN, UNSPECIFIED; Translations: [LOW BACK PAIN, UNSPECIFIED] Onset: 02-05-2022 Unclassified (1 source) CONTACT W/AND (SUSP) EXPOS COVID-19; Translations: [CONTACT W/AND (SUSP) EXPOS COVID-19] Onset: 06-12-2021 Unclassified (1 source) Acute cough R05.1 Results Test Name Value Interpretation Reference Range Facility Complete Blood Count Auto Di ffon 03-28-2023 Basophils (Bld) [#/Vol] 0.0 10*3/uL Normal 0.0-0.2 [facility] Comment on above: Result Comment: PERF ORMED BY: [place] [address] PATHOLOGIST ACTIVITIES AIDE TRI ASH M.D. Performed By: #### C BC, CMP #### [address] Basophils/100 WBC (Bld) 0.2 % Normal . [facility] Comment on above: Performed By: #### C BC, CMP #### [address] Eosinophils (Bld) [#/Vol] 0.1 10*3/uL Normal 0.0-0.45 [facility] Comment on above: Performed By: #### C BC, CMP #### [address] Eosinophils/100 WBC (Bld) 0.4 % Normal . [facility] Comment on above: Performed By: #### C BC, CMP #### [address] Erythrocyte distribution width (RBC) [Ratio] 13.1 % Normal 11.9-15.3 [facility] Comment on above: Performed By: #### C BC, CMP #### [address] Hematocrit (Bld) [Volume fraction] 37.4 % Normal 34.0-46.4 [facility] Comment on above: Performed By: #### C BC, CMP #### [facility] [address] [place] [address] [place] Hemoglobin (Bld) [Mass/Vol] 12.4 g/dL Normal 11.8-15.4 [facility] Comment on above: Performed By: #### C BC, CMP #### [facility] [address] [place] [address] [place] Lymphocytes (Bld) [#/Vol] 3.6 10*3/uL Normal 1.00-4.8 [facility] Comment on above: Performed By: #### C BC, CMP #### [facility] [address] Lymphocytes/100 WBC (Bld) 21.1 % Normal . [facility] Comment on above: Performed By: #### C BC, CMP #### [facility] [address] MCH (RBC) [Entitic mass] 28.3 pg Normal 24.7-34.3 [facility] Comment on above: Performed By: #### C BC, CMP #### [facility] [address] [place] [address] [place] MCV (RBC) [Entitic vol] 85.6 fL Normal 80-100 [facility] Comment on above: Performed By: #### C BC, CMP #### [facility] [address] Mean Corpuscular HGB Conc 33.1 g/dL Normal 32.0-35.0 [facility] Comment on above: Performed By: #### C BC, CMP #### [facility] [address] [place] [address] [place] Monocytes (Bld) [#/Vol] 0.6 10*3/uL Normal 0.0-0.8 [facility] Comment on above: Performed By: #### C BC, CMP #### [facility] [address] [place] [address] [place] Monocytes/100 WBC (Bld) 22.21 % High 0.00-20.00 [facility] Comment on above: Result Comment: For adults in ED, MDW > 20.0 may be associated with a higher risk of sepsis during the first 12 hrs of hospital admission Performed By: #### C BC, CMP #### [facility] [address] [place] [address] [place] Monocytes/100 WBC (Bld) 3.6 % Normal . [facility] Comment on above: Performed By: #### C BC, CMP #### [facility] [address] Neutrophils (Bld) [#/Vol] 12.8 10*3/uL High 1.8-7.7 [facility] Comment on above: Performed By: #### C BC, CMP #### [facility] [address] Neutrophils/100 WBC (Bld) 74.7 % Normal . [facility] Comment on above: Performed By: #### C BC, CMP #### [facility] [address] NRBC% 0.1 /100{WBC} Normal 0-0.5 [facility] Comment on above: Performed By: #### C BC, CMP #### [address] Platelet mean volume (Bld) [Entitic vol] 8.3 fL Normal 6.3-10.7 [facility] Comment on above: Performed By: #### C BC, CMP #### [facility] [address] [place] [address] [place] Platelets (Bld) [#/Vol] 336 10*3/uL Normal 150-450 [facility] Comment on above: Performed By: #### C BC, CMP #### [facility] [address] [place] [address] [place] RBC (Bld) [#/Vol] 4.37 10*6/uL Normal 3.60-5.00 [facility] Comment on above: Performed By: #### C BC, CMP #### [facility] [address] [place] [address] [place] WBC (Bld) [#/Vol] 17.2 10*3/uL High 3.8-11.6 [facility] Comment on above: Performed By: #### C BC, CMP #### [address] Comprehensive Metabolic Pane kellee 03-28-2023 Albumin [Mass/Vol] 4.4 g/dL Normal 3.5-5.7 [facility] Comment on above: Performed By: #### C BC, CMP #### [address] Albumin/Globulin [Mass ratio] 1.4 {ratio} Normal [facility] Comment on above: Performed By: #### C BC, CMP #### [address] ALP [Catalytic activity/Vol] 79 U/L Normal 34-104 [facility] Comment on above: Performed By: #### C BC, CMP #### [address] ALT [Catalytic activity/Vol] 22 U/L Normal 7-52 [facility] Comment on above: Performed By: #### C BC, CMP #### [address] Anion gap [Moles/Vol] 12.2 mmol/L Normal 6.0-15.0 [facility] Comment on above: Performed By: #### C BC, CMP #### [address] AST [Catalytic activity/Vol] 17 U/L Normal 13-39 [facility] Comment on above: Performed By: #### C BC, CMP #### [address] Bilirubin [Mass/Vol] 0.3 mg/dL Normal 0.3-1.0 [facility] Comment on above: Performed By: #### C BC, CMP #### [address] Calcium [Mass/Vol] 9.0 mg/dL Normal 8.6-10.3 [facility] Comment on above: Performed By: #### C BC, CMP #### [facility] [address] Chloride [Moles/Vol] 104 mmol/L Normal 98-107 [facility] Comment on above: Performed By: #### C BC, CMP #### [facility] [address] CO2 [Moles/Vol] 24.1 mmol/L Normal 21.0-31.0 [facility] Comment on above: Performed By: #### C BC, CMP #### [facility] [address] Creatinine [Mass/Vol] 0.71 mg/dL Normal 0.60-1.20 [facility] [facility] Comment on above: Performed By: #### C BC, CMP #### [facility] [address] Creatinine Clr Calc Pharmacy 119.59 Normal [facility] Comment on above: Result Comment: PERF ORMED BY: [place] [address] PATHOLOGIST ACTIVITIES AIDE TRI ASH M.D. Performed By: #### C BC, CMP #### [facility] [address] GFR/1.73 sq M.predicted MDRD (S/P/Bld) [Vol rate/Area] mL/min/{1.73_m2} Normal [facility] Comment on above: Performed By: #### C BC, CMP #### [facility] [address] Globulin (S) [Mass/Vol] 3.2 g/dL Normal [facility] Comment on above: Performed By: #### C BC, CMP #### [facility] [address] Glucose [Mass/Vol] 214 mg/dL High 70-100 [facility] Comment on above: Result Comment: [facility] Glucose Reference Range is dependent on time and content of last meal. Glucose of more than 200 mg/dL in a nonstressed, ambulatory subject supports the diagnosis of Diabetes Mellitus. ADA recommended reference range Performed By: #### C BC, CMP #### [facility] [address] Potassium [Moles/Vol] 3.3 mmol/L Low 3.5-5.1 [facility] Comment on above: Performed By: #### C BC, CMP #### [facility] [address] Protein [Mass/Vol] 7.6 g/dL Normal 6.4-8.9 [facility] Comment on above: Performed By: #### C BC, CMP #### [facility] [address] Sodium [Moles/Vol] 137 mmol/L Normal 136-145 [facility] Comment on above: Performed By: #### C BC, CMP #### [facility] [address] Urea nitrogen [Mass/Vol] 15 mg/dL Normal 7-25 [facility] Comment on above: Performed By: #### C BC, CMP #### [address] ECG 12 lead ECGon 03-28-2023 ECG 12 lead ECG [facility] [address] [place] [address] Electrocardiograph Report Signed Patient: Jolene Solis MR#: [id number] 54 : 1990 Acct:[id number] Age/Sex: 33 / F ADM Date: 03/27/23 Loc: ER Room: Type: [facility] ER Attending Dr: Ordering Provider: Karoline Londono Jr, MD Date of Service: 03/27/23 ECG/ECG 12 lead ECG: vomiting Copies to: Test Reason : Blood Pressure : 120/070 mmHG Vent. Rate : 094 BPM Atrial Rate : 094 BPM P-R Int : 182 ms QRS Dur : 092 ms QT Int : 380 ms P-R-T Axes : 052 067 009 degrees QTc Int : 475 ms Normal sinus rhythm Nonspecific T wave abnormality Prolonged QT Abnormal ECG No previous ECGs available Confirmed by KAROLINE LONDONO MD ([id number]) on 03/28/2023 5:51:37 AM Referred By: Electronically Signed By:KAROLINE LONDONO MD Transcribed By: MUS Signed [place] Jr, [place] [id number] Normal [facility] Alanine aminotransferase [En zymatic activity/volume] in Serum or PlasmaOrdered By: Karoline Londono on 03-27-2023 ALT [Catalytic activity/Vol] 22 U/L 7-52 [facility] Albumin [Mass/volume] in Ser um or Plasma by Bromocresol green (BCG) dye binding methoOrdered By: Karoline Londono on 03-27-2023 Albumin BCG dye [Mass/Vol] 4.4 g/dL 3.5-5.7 [facility] Alkaline phosphatase [Enzyma tic activity/volume] in Serum or PlasmaOrdered By: Karoline Londono on 03-27-2023 ALP [Catalytic activity/Vol] 79 U/L 34-104 [facility] Aspartate aminotransferase [ Enzymatic activity/volume] in Serum or PlasmaOrdered By: Karoline Londono on 03-27-2023 AST [Catalytic activity/Vol] 17 U/L 13-39 [facility] Basophils Auto (Bld) [#/Vol] Ordered By: Karoline Londono on 03-27-2023 Basophils (Bld) [#/Vol] 0.0 10*3/uL 0.0-0.2 [facility] Basophils/100 WBC Auto (Bld) Ordered By: Karoline Londono on 03-27-2023 Basophils/100 WBC (Bld) 0.2 % . [facility] Bilirubin.total [Mass/volume ] in Serum or PlasmaOrdered By: Karoline Londono on 03-27-2023 Bilirubin [Mass/Vol] 0.3 mg/dL 0.3-1.0 [facility] Calcium [Mass/volume] in Ser um or PlasmaOrdered By: Karoline Londono on 03-27-2023 Calcium [Mass/Vol] 9.0 mg/dL 8.6-10.3 [facility] Carbon dioxide, total [Moles /volume] in Serum or PlasmaOrdered By: Karoline Londono on 03-27-2023 CO2 [Moles/Vol] 24.1 mmol/L 21.0-31.0 [facility] Chloride [Moles/volume] in S damion or PlasmaOrdered By: Karoline Londono on 03-27-2023 Chloride [Moles/Vol] 104 mmol/L 98-107 [facility] Creatinine [Mass/volume] in Serum or PlasmaOrdered By: Karoline Londono on 03-27-2023 Creatinine [Mass/Vol] 0.71 mg/dL 0.60-1.20 [facility] Eosinophils Auto (Bld) [#/Vo l]Ordered By: Karoline Londono on 03-27-2023 Eosinophils (Bld) [#/Vol] 0.1 10*3/uL 0.0-0.45 [facility] Eosinophils/100 WBC Auto (Bl d)Ordered By: Karoline Londono on 03-27-2023 Eosinophils/100 WBC (Bld) 0.4 % . [facility] Erythrocyte distribution wid th Auto (RBC) [Ratio]Ordered By: Karoline Londono on 03-27-2023 Erythrocyte distribution width (RBC) [Ratio] 13.1 % 11.9-15.3 [facility] Globulin Calc (S) [Mass/Vol] Ordered By: Karoline Londono on 03-27-2023 Globulin (S) [Mass/Vol] 3.2 g/dL [facility] Glucose [Mass/volume] in Ser um or PlasmaOrdered By: Karoline Londono on 03-27-2023 Glucose [Mass/Vol] 214 mg/dL 70-100 [facility] Comment on above: ADA recommended refe rence rangeRandom Glucose Reference Range is dependent on time and content of last meal. Glucose of more than 200 mg/dL in a nonstressed, ambulatory subject supports the diagnosis of Diabetes Mellitus. Hematocrit Auto (Bld) [Volum e fraction]Ordered By: Karoline Londono on 03-27-2023 Hematocrit (Bld) [Volume fraction] 37.4 % 34.0-46.4 [facility] Hemoglobin [Mass/volume] in BloodOrdered By: Karoline Londono on 03-27-2023 Hemoglobin (Bld) [Mass/Vol] 12.4 g/dL 11.8-15.4 [facility] Leukocytes [#/volume] correc jessica for nucleated erythrocytes in Blood by Automated counOrdered By: Karoline Londono on 03-27-2023 WBC corrected for nucl RBC Auto (Bld) [#/Vol] 17.2 10*3/uL 3.8-11.6 [facility] Lymphocytes Auto (Bld) [#/Vo l]Ordered By: Karoline Londono on 03-27-2023 Lymphocytes (Bld) [#/Vol] 3.6 10*3/uL 1.00-4.8 [facility] Lymphocytes/100 WBC Auto (Bl d)Ordered By: Karoline Londono on 03-27-2023 Lymphocytes/100 WBC (Bld) 21.1 % . [facility] MCH Auto (RBC) [Entitic mass ]Ordered By: Karoline Londono on 03-27-2023 MCH (RBC) [Entitic mass] 28.3 pg 24.7-34.3 [facility] MCHC Auto (RBC) [Mass/Vol]Or dered By: Karoline Londono on 03-27-2023 MCHC (RBC) [Mass/Vol] 33.1 g/dL 32.0-35.0 [facility] MCV Auto (RBC) [Entitic vol] Ordered By: Karoline Londono on 03-27-2023 MCV (RBC) [Entitic vol] 85.6 fL 80-100 [facility] Monocyte distribution width [Entitic volume] in Blood by AutomatedOrdered By: Karoline Londono on 03-27-2023 Monocyte distribution width Auto (Bld) [Entitic vol] 22.21 % 0.00-20.00 [facility] Comment on above: For adults in ED, MD W > 20.0 may be associated with a higher risk of sepsis during the first 12 hrs of hospital admission Monocytes Auto (Bld) [#/Vol] Ordered By: Karoline Londono on 03-27-2023 Monocytes (Bld) [#/Vol] 0.6 10*3/uL 0.0-0.8 [facility] Monocytes/100 WBC Auto (Bld) Ordered By: Karoline Londono on 03-27-2023 Monocytes/100 WBC (Bld) 3.6 % . [facility] Neutrophils Auto (Bld) [#/Vo l]Ordered By: Karoline Londono on 03-27-2023 Neutrophils (Bld) [#/Vol] 12.8 10*3/uL 1.8-7.7 [facility] Neutrophils/100 WBC Auto (Bl d)Ordered By: Karoline Londono on 03-27-2023 Neutrophils/100 WBC (Bld) 74.7 % . [facility] No Panel InformationOrdered By: Karoline Londono on 03-27-2023 Estimated GFR (CKD-EPI) > 60.0 mL/Min [facility] Creatinine Clearance (Chem 119.59 [facility] Nucleated erythrocytes [Pres ence] in Blood by Automated countOrdered By: Karoline Londono on 03-27-2023 Nucleated RBC Auto Ql (Bld) 0.1 /100{WBC} 0-0.5 [facility] Platelet mean volume Auto (B ld) [Entitic vol]Ordered By: Karoline Londono on 03-27-2023 Platelet mean volume (Bld) [Entitic vol] 8.3 fL 6.3-10.7 [facility] Platelets Auto (Bld) [#/Vol] Ordered By: Karoline Londono on 03-27-2023 Platelets (Bld) [#/Vol] 336 10*3/uL 150-450 [facility] Potassium [Moles/volume] in Serum or PlasmaOrdered By: Karoline Londono on 03-27-2023 Potassium [Moles/Vol] 3.3 mmol/L 3.5-5.1 [facility] Protein [Mass/volume] in Ser um or PlasmaOrdered By: Karoline Londono on 03-27-2023 Protein [Mass/Vol] 7.6 g/dL 6.4-8.9 [facility] RBC Auto (Bld) [#/Vol]Ordere d By: Karoline Londono on 03-27-2023 RBC (Bld) [#/Vol] 4.37 10*6/uL 3.60-5.00 [facility] Serum or plasma albumin/glob ulin mass ratioOrdered By: Karoline Londono on 03-27-2023 Albumin/Globulin [Mass ratio] 1.4 {ratio} [facility] Serum or plasma anion gap de terminationOrdered By: Karoline Londono on 03-27-2023 Anion gap [Moles/Vol] 12.2 mmol/L 6.0-15.0 [facility] Sodium [Moles/volume] in Ser um or PlasmaOrdered By: Karoline Londono on 03-27-2023 Sodium [Moles/Vol] 137 mmol/L 136-145 [facility] Urea nitrogen [Mass/volume] in Serum or PlasmaOrdered By: Karoline Londono on 03-27-2023 Urea nitrogen [Mass/Vol] 15 mg/dL 7 [facility] WBC Auto (Bld) [#/Vol]Ordere d By: Karoline Londono on 03-27-2023 WBC (Bld) [#/Vol] 17.2 10*3/uL 3.8-11.6 [facility] Alanine Aminotransferaseon 1 04-19-2022 ALT [Catalytic activity/Vol] 26 U/L Normal [facility] Comment on above: Order Comment: Reaso n for Exam Hypertension;Fatty liver Reason for Exam Hypertension;Fatty liver;Medication monitoring encounter Performed By: #### B 12, ALT #### [facility] [address] [place] [address] Alanine aminotransferase [En zymatic activity/volume] in Serum or PlasmaOrdered By: Uriah Skinner on 02-17-2023 ALT [Catalytic activity/Vol] 26 U/L [facility] Vitamin B12on 02-17-2023 Cobalamin (Vitamin B12) [Mass/Vol] 364 pg/mL Normal 180-914 [facility] Comment on above: Order Comment: Reaso n for Exam Hypertension;Fatty liver Reason for Exam Hypertension;Fatty liver;Medication monitoring encounter Result Comment: PERF ORMED BY: [place] [address] PATHOLOGIST ACTIVITIES AIDE TRI ASH M.D. Performed By: #### B 12, ALT #### [facility] [address] [place] [address] Vitamin B12 ser/plasOrdered By: Uriah Skinner on 02-17-2023 Cobalamin (Vitamin B12) [Mass/Vol] 364 pg/mL 180-914 [facility] COVID + FLU Quick Testingon 12-11-2022 SARS-CoV-2 (COVID-19) RNA VANNESA+probe Ql (Unsp spec) Negative [facility] Other COVID + FLU Quick Testing Negative [facility] Other Quick Strepon 12-11-2022 S. pyogenes Org specific cx Ql (Throat) Positive [facility] Other Quick Strep [facility] Other HCG ( test) IA.rapi d Ql (U)Ordered By: Johann Moe on 07-28-2022 HCG ( test) Ql (U) Negative [facility] HCG,Urineon 07-28-2022 Beta HCG ( test) Ql (U) Negative Normal [facility] Comment on above: Result Comment: PERF ORMED BY: [place] [address] PATHOLOGIST ACTIVITIES AIDE TRI ASH M.D. Performed By: #### U HCG #### [address] CBC AUTO DIFFon 06-06-2022 BASO # 0.0 103/ul Normal 0.0-0.1 [facility] Comment on above: Performed By: #### C BC #### [facility] [address] [place] [address] Dr. Jorge Luis Ferris Basophils/100 WBC (Bld) 0.2 % Normal 0.2-2.0 [facility] Comment on above: Performed By: #### C BC #### [facility] [address] [place] [address] Dr. Jorge Luis Ferris EO # 0.0 103/ul Normal 0.0-0.7 [facility] Comment on above: Performed By: #### C BC #### [facility] [address] [place] [address] Dr. Jorge Luis Ferris Eosinophils/100 WBC (Bld) 0.5 % Critically low 0.9-7.0 [facility] Comment on above: Performed By: #### C BC #### [facility] [address] [place] [address] Dr. Jorge Luis Ferris Erythrocyte distribution width (RBC) [Ratio] 12.4 % Normal 11.0-15.0 [facility] Comment on above: Performed By: #### C BC #### [facility] [address] [place] [address] Dr. Jorge Luis Ferris Hematocrit (Bld) [Volume fraction] 37.4 % Normal 36.0-48.0 [facility] Comment on above: Performed By: #### C BC #### [facility] [address] [place] [address] Dr. Jorge Luis Ferris Hemoglobin (Bld) [Mass/Vol] 12.4 g/dL Normal 12.0-16.0 [facility] Comment on above: Performed By: #### C BC #### [facility] [address] [place] [address] Dr. Jorge Luis Ferris IG # 0.03 10e3/ul Normal 0.00-0.03 [facility] Comment on above: Performed By: #### C BC #### [facility] [address] [place] [address] Dr. Jorge Luis Ferris IG % 0.4 % Normal 0.0-0.5 [facility] Comment on above: Performed By: #### C BC #### [facility] [address] [place] [address] Dr. Jorge Luis Ferris LYMPH # 2.5 103/ul Normal 1.2-3.8 [facility] Comment on above: Performed By: #### C BC #### [facility] [address] [place] [address] Dr. Jorge Luis Ferris Lymphocytes/100 WBC (Bld) 30.4 % Normal 20.5-60.0 [facility] Comment on above: Performed By: #### C BC #### [facility] [address] [place] [address] Dr. Jorge Luis Ferris MANUAL DIFF REQ NO Normal [facility] Comment on above: Performed By: #### C BC #### [facility] [address] [place] [address] Dr. Jorge Luis Ferris MCH (RBC) [Entitic mass] 28.6 pg Normal 26.7-34.0 [facility] Comment on above: Performed By: #### C BC #### [facility] [address] [place] [address] Dr. Jorge Luis Ferris MCHC (RBC) [Mass/Vol] 33.2 g/dL Normal 29.9-35.2 [facility] Comment on above: Performed By: #### C BC #### [facility] [address] [place] [address] Dr. Jorge Luis Ferris MCV (RBC) [Entitic vol] 86.2 fL Normal 81.0-99.0 [facility] Comment on above: Performed By: #### C BC #### [facility] [address] [place] [address] Dr. Jorge Luis Ferris MONO # 0.5 103/ul Normal 0.3-0.8 [facility] Comment on above: Performed By: #### C BC #### [facility] [address] [place] [address] Dr. Jorge Luis Ferris Monocytes/100 WBC (Bld) 5.4 % Normal 1.7-12.0 [facility] Comment on above: Performed By: #### C BC #### [facility] [address] [place] [address] Dr. Jorge Luis Ferris NEUT # 5.2 103/ul Normal 1.4-6.5 [facility] Comment on above: Performed By: #### C BC #### [facility] [address] [place] [address] Dr. Jorge Luis Ferris Neutrophils/100 WBC (Bld) 63.1 % Normal 43.0-75.0 [facility] Comment on above: Performed By: #### C BC #### [facility] [address] [place] [address] Dr. Jorge Luis Ferris Platelet mean volume (Bld) [Entitic vol] 10.3 fL Normal 9.5-13.5 [facility] Comment on above: Performed By: #### C BC #### [facility] [address] [place] [address] Dr. Jorge Luis Ferris PLT 236 103/ul Normal 150-450 [facility] Comment on above: Performed By: #### C BC #### [facility] [address] [place], [place] [address] Dr. Jorge Luis Ferris RBC 4.34 106/ul Normal 4.20-5.40 [facility] Comment on above: Performed By: #### C BC #### [facility] [address] [place], [place] [address] Dr. Jorge Luis Ferris WBC 8.3 103/ul Normal 4.0-11.0 [facility] Comment on above: Performed By: #### C BC #### [facility] [address] [place], [place] [address] [address] CSPINE WO CONon 3 CT CSPINE WO CON EXAMINATION: CT CSPINE WO CON HISTORY: Paresthesia of upper limb COMPARISON: Thoracic spine x-rays 03/29/2021 TECHNIQUE: CT Cervical spine without IV contrast. Coronal and sagittal reformations were performed. Dose reduction techniques were achieved by using automated exposure control and/or adjustment of mA and/or kV according to patient size and/or use of iterative reconstruction technique. FINDINGS: Persistent straightening of the normal cervical lordosis with mild reversal centered at C3-C4. Vertebral body heights and alignments exhibit no fracture or listhesis. Intervertebral disc spaces are normal. Facet joints are normal. The dens and lateral masses of C1 are symmetric. No prevertebral soft tissue edema. The visualized skull base is normal. Mastoid air cells are pneumatized. The visualized airway, thoracic inlet and pulmonary apices are normal. IMPRESSION: Persistent straightening of the normal cervical lordosis with mild reversal centered at C3-C4. Findings suggest muscle spasm Electronically authenticated by: NATALIE HERNANDEZ Date: 2022-06-06 20:03 Normal [facility] CT HEAD WO CONon 06-06-2022 CT HEAD WO CON EXAMINATION: CT HEAD WO CON HISTORY: Paresthesia of upper limb COMPARISON: None. TECHNIQUE: Axial CT scans through the head were obtained without IV contrast administration. Dose reduction techniques were achieved by using: automated exposure control and/or adjustment of mA and /or kV according to patient size and/or use of iterative reconstruction technique. FINDINGS: There is no evidence of acute intracranial hemorrhage or abnormal extra-axial fluid collection. No mass effect or midline shift is seen. There is no evidence of large acute territorial infarction. There is no hydrocephalus. No definite acute fracture is identified. Soft tissues are unremarkable. The visualized orbits show no abnormal mass. The visualized paranasal sinuses show no air-fluid level. Mastoid air cells are clear. IMPRESSION: No CT evidence of acute intracranial abnormality. Electronically authenticated by: BEKA UNLU Date: 2022-06-06 20:06 Normal [facility] CULTURE URINEon 06-06-2022 CULTURE URINE Culture Observations: LIGHT GROWTH OF MIXED GENITAL RISA. NO POTENTIAL PATHOGENS SEEN. Normal [facility] Comment on above: Performed By: #### U RCX #### [facility] [address] [place] [address] Dr. Jorge Luis Ferris ER URINE PROFILEon 3 Bilirubin Ql (U) Negative Normal NEGATIVE [facility] Comment on above: Performed By: #### [id number] #### [facility] [address] [place] [address] Dr. Jorge Luis Ferris Clarity (U) CLEAR Normal CLEAR [facility] Comment on above: Performed By: #### [id number] #### [facility] [address] [place] [address] Dr. Jorge Luis Ferris Color (U) YELLOW Normal YELLOW [facility] Comment on above: Performed By: #### [id number] #### [facility] [address] [place] [address] Dr. Jorge Luis Ferris ERUAHD A micrscopic examination will be performed if indicated. Normal [facility] Comment on above: Performed By: #### [id number] #### [facility] [address] [place] [address] Dr. Jorge Luis Ferris Glucose Ql (U) Negative Normal NEGATIVE [facility] Comment on above: Performed By: #### [id number] #### [facility] [address] [place] [address] Dr. Jorge Luis Ferris Hemoglobin Ql (U) Negative Normal NEGATIVE [facility] Comment on above: Performed By: #### [id number] #### [facility] [address] [place] [address] Dr. Jorge Luis Ferris Ketones Ql (U) Negative Normal NEGATIVE [facility] Comment on above: Performed By: #### [id number] #### [facility] [address] [place] [address] Dr. Jorge Luis Ferris LEUKOCYTES MODERATE Abnormal NEGATIVE [facility] Comment on above: Performed By: #### [id number] #### [facility] [address] [place] [address] Dr. Jorge Luis Ferris Nitrite Ql (U) Negative Normal NEGATIVE [facility] Comment on above: Performed By: #### [id number] #### [facility] [address] [place] [address] Dr. Jorge Luis Ferris pH (U) 7.0 [pH] Normal 5-9 [facility] Comment on above: Performed By: #### [id number] #### [facility] [address] [place] [address] Dr. Jorge Luis Ferris SPEC GRAVITY 1.020 Normal 1.005-<=1.02 5 [facility] Comment on above: Performed By: #### [id number] #### [facility] [address] [place] [address] Dr. Jorge Luis Ferris UA PROTEIN TRACE Normal NEGATIVE/ TRACE [facility] Comment on above: Performed By: #### [id number] #### [facility] [address] [place] [address] Dr. Jorge Luis Ferris UR MICRO IND INDICATED Normal [facility] Comment on above: Performed By: #### [id number] #### [facility] [address] [place] [address] Dr. Jorge Luis Ferris Urobilinogen Qn (U) 0.2 {Álvaro'U}/dL Normal 0.2 - 1. 0 [facility] Comment on above: Performed By: #### [id number] #### [facility] [address] [place] [address] Dr. Jorge Luis Ferris PREG HCG QUALon 06-06-2022 , QUAL Negative Normal NEGATIVE [facility] [place] Comment on above: Performed By: #### [id number] #### [facility] [address] [place] [address] [address] Jorge Luis Ferris PROF CHEM 8 (BAS METB)on Anion gap [Moles/Vol] 9.2 mmol/L Normal [facility] Comment on above: Performed By: #### B MP, TSH #### [facility] [address] [place] [address] Dr. Jorge Luis Ferris Calcium [Mass/Vol] 8.9 mg/dL Normal 8.5-10.1 [facility] Comment on above: Performed By: #### B MP, TSH #### [facility] [address] [place] [address] Dr. Jorge Luis Ferris Chloride [Moles/Vol] 103 mmol/L Normal 98-107 [facility] Comment on above: Performed By: #### B MP, TSH #### [facility] [address] [place] [address] Dr. Jorge Luis Ferris CO2 [Moles/Vol] 26.4 mmol/L Normal 21.0-32.0 [facility] Comment on above: Performed By: #### B MP, TSH #### [facility] [address] [place] [address] Dr. Jorge Luis Ferris Creatinine [Mass/Vol] 0.64 mg/dL Normal 0.55-1.02 [facility] Comment on above: Performed By: #### B MP, TSH #### [facility] [address] [place] [address] Dr. Jorge Luis Ferris EGFR-AF ANGOLAN >60 Normal >=60 [facility] Comment on above: Performed By: #### B MP, TSH #### [facility] [address] [place] [address] Dr. Jorge Luis Ferris EGFR-NON AF ANGOLAN >60 Normal >=60 [facility] Comment on above: Performed By: #### B MP, TSH #### [facility] [address] [place] [address] Dr. Jorge Luis Ferris Glucose [Mass/Vol] 97 mg/dL Normal 74-106 [facility] Comment on above: Performed By: #### B MP, TSH #### [facility] [address] [place] [address] Dr. Jorge Luis Ferris Potassium [Moles/Vol] 3.6 mmol/L Normal 3.5-5.1 [facility] Comment on above: Performed By: #### B MP, TSH #### [facility] [address] [place] [address] Dr. Jorge Luis Ferris Sodium [Moles/Vol] 135 mmol/L Critically low 136-145 Th [facility] Comment on above: Performed By: #### B MP, TSH #### [facility] [address] [place] [address] Dr. Jorge Luis Ferris Urea nitrogen [Mass/Vol] 11.0 mg/dL Normal 7.0-18.0 [facility] Comment on above: Performed By: #### B MP, TSH #### [facility] [address] [place] [address] Dr. Jorge Luis Ferris Urea nitrogen/Creatinine [Mass ratio] 17.2 mg/mg Normal [facility] Comment on above: Performed By: #### B MP, TSH #### [facility] [address] [place] [address] Dr. Jorge Luis Ferris TSHon 06-06-2022 TSH 1.148 uIU/mL Normal 0.358-3.740 [facility] Comment on above: Performed By: #### B MP, TSH #### [facility] [address] [place] [address] Dr. Jorge Luis Ferris URINE MICROSCOPIC ONLYon BACTERIA LARGE Abnormal NONE SEEN [facility] Comment on above: Performed By: #### [id number] #### [facility] [address] [place] [address] Dr. Jorge Luis Ferris Bacteria identified Cx Nom (U) INDICATED Normal [facility] Comment on above: Performed By: #### [id number] #### [facility] [address] [place] [address] Dr. Jorge Luis Ferris CAST NONE SEEN Normal NONE SEEN [facility] Comment on above: Performed By: #### [id number] #### [facility] [address] [place] [address] Dr. Jorge Luis Ferris Crystals LM Nom (Urine sed) NONE SEEN Normal NONE SEEN [facility] Comment on above: Performed By: #### [id number] #### [facility] [address] [place] [address] Dr. Jorge Luis Ferris Epithelial cells LM Ql (Urine sed) MANY Abnormal NONE SEEN /RARE [facility] Comment on above: Performed By: #### [id number] #### [facility] [address] [place] [address] Dr. Jorge Luis Ferris MUCOUS LARGE Abnormal NONE SEEN [facility] Comment on above: Performed By: #### [id number] #### [facility] [address] [place] [address] Dr. Jorge Luis Ferris RBC 0-2 Normal 0-2 [facility] Comment on above: Performed By: #### [id number] #### [facility] [address] [place] [address] Dr. Jorge Luis Ferris WBC 5-10 Abnormal NONE SEEN [facility] Comment on above: Performed By: #### [id number] #### [facility] [address] [place] [address] Dr. Jorge Luis Ferris TSHon 05-08-2022 TSH 0.687 uIU/mL Normal 0.358-3.740 [facility] Comment on above: Performed By: #### T SH #### [facility] [address] [place] [address] [address] ABDOMEN WO/W CONon 2021 CT ABDOMEN WO/W CON EXAMINATION: CT ABDOMEN WO/W CON HISTORY: Chronic, intermittent Right upper quadrant pain COMPARISON: No relevant comparison available. TECHNIQUE: Axial, Coronal, and Sagittal images were created without and with non-ionic intravenous contrast material. Dose reduction techniques were achieved by using automated exposure control and/or adjustment of mA and/or kV according to patient size and/or use of iterative reconstruction technique. FINDINGS: LUNG BASES: No visible pulmonary or pleural disease. LIVER: Fatty infiltration. BILIARY: Cholecystectomy. PANCREAS: No lesion, fluid collection, ductal dilatation, or atrophy. SPLEEN: No enlargement or focal lesion. ADRENALS: No mass or enlargement. KIDNEYS: Nonobstructing 2 mm stone within right kidney. BOWEL/MESENTERY: Borderline mild wall thickening and slight indistinctness of the margins of the second through fourth portions of the duodenum. Unremarkable stomach and visualized small and large bowel. No free air or free fluid. AORTA/VASCULAR: No aneurysm or dissection. RETROPERITONEUM: No mass or adenopathy. ABDOMINAL WALL: No mass or hernia. BONES: No bony lesion or fracture. OTHER: Negative. IMPRESSION: 1. Suspect mild duodenitis. No visible penetrating ulcer. Otherwise unremarkable CT abdomen. Electronically authenticated by: LEIALNI ALANIS Date: 2022-02-05 07:28 Normal [facility] Amylaseon 09-27-2021 Amylase 40 U/L Normal 28-100 U/L [facility] Other Hepatic Panelon 09-27-2021 Albumin [Mass/Vol] 3.720864 g/dL Normal 3.2-5.5 g/dL N [employer] Other Albumin/Globulin [Mass ratio] 1.2 {ratio} [facility] Other ALP [Catalytic activity/Vol] 79 U/L Normal 32-92 U/L [facility] Other ALT [Catalytic activity/Vol] 73 U/L High 10-60 U/L [facility] Other AST [Catalytic activity/Vol] 40 U/L Normal 10-42 U/L [facility] Other Bilirubin [Mass/Vol] 0.5009082 mg/dL Normal 0.3- 1.2 mg/dL [facility] Other Bilirubin.indirect [Mass/Vol] mg/dL Normal 0.0-0.4 [facility] Other Protein [Mass/Vol] 6.034984 g/dL Normal 6.1-7.9 g/dL N [employer] Other Hepatic Panel TNP [facility] Other Hepatic Panel 3.0 g/dL [facility] Other Lipaseon 09-27-2021 Lipase [Catalytic activity/Vol] 34.75566 U/L Normal 22-51 U/L [facility] Other Lipid Panelon 09-27-2021 Cholesterol [Mass/Vol] 239 mg/dL High 140-2 00 mg/dL [facility] Other Cholesterol in HDL [Mass/Vol] 54 mg/dL Normal 35-85 mg/dL [facility] Other Cholesterol in LDL Elph Qn 162 mg/dL High 0-100 mg/dL [facility] Other Cholesterol.total/Choles terol in HDL [Mass ratio] 4.4 {ratio} <5.0 [facility] Other Lipid Panel 117 mg/dL Normal 35-149 mg/dL [facility] Other Lipid Panel 23 mg/dL [facility] Other PAP ACOG PANEL 2: 30 to 65on 07-18-2021 . . Normal [facility] Comment on above: Result Comment: Perf ormed at: WB Performed By: #### [id number] #### [facility] [address] [place] [address] Dr. Jorge Luis Ferris Age Gdln ACOG Testing 30-65 Normal [facility] Comment on above: Performed By: #### [id number] #### [facility] [address] [address] [address] Jorge Luis Ferris DIAGNOSIS: Comment Normal [facility] Comment on above: Result Comment: NEGA TIVE FOR INTRAEPITHELIAL LESION OR MALIGNANCY. Performed at: WB Performed By: #### [id number] #### [facility] [address] [address] [address] Jorge Luis Ferris HPV Aptima Negative Normal Negative [facility] Comment on above: Result Comment: This nucleic acid amplification test detects fourteen high-risk HPV types (16,18,31,33,35,39,45,51,52,56,58,59,66,68) without differentiation. Performed at: =G Performed By: #### [id number] #### [facility] [address] [place] [address] Dr. Jorge Luis Ferris Methodology: Comment Normal [facility] Comment on above: Result Comment: This liquid based ThinPrep(R) pap test was screened with the use of an image guided system. Performed at: WB Performed By: #### [id number] #### [facility] [address] [place] [address] Dr. Jorge Luis Ferris Note: Comment Normal [facility] Comment on above: Result Comment: The Pap smear is a screening test designed to aid in the detection of premalignant and malignant conditions of the uterine cervix. It is not a diagnostic procedure and should not be used as the sole means of detecting cervical cancer. Both false-positive and false-negative reports do occur. . Performed at: WB Performed By: #### [id number] #### [facility] [address] [place] [address] Dr. Jorge Luis Ferris Performed by: Comment Normal [facility] Comment on above: Result Comment: Annalise Franz, Machine Fastener (ASCP) Performed at: WB Performed By: #### [id number] #### [facility] [address] [place] [address] Dr. Jorge Luis Ferris Specimen adequacy: Comment Normal [facility] Comment on above: Result Comment: Sati sfactory for evaluation. Endocervical and/or squamous metaplastic cells (endocervical component) are present. Areas of partially obscuring blood are present. Performed at: WB Performed By: #### [id number] #### [facility] [address] [place] [address] Dr. Jorge Luis Ferris Covid-19 PCR ([facility])on 05-28 SARS-CoV-2 (COVID-19) RNA VANNESA+probe Ql (Unsp spec) Not detected Normal NOT DETECTED [facility] Comment on above: Result Comment: This test is not yet approved or cleared by the [place] FDA. When there are no FDA-approved or cleared tests available, and other criteria are met, FDA can make tests available under an emergency access mechanism called an Emergency Use Authorization (EUA). The EUA for this test is supported by the Wet Process Operator of Health and Human Service's (HHS's) declaration that circumstances exist to justify the emergency use of in vitro diagnostics for the detection and/or diagnosis of the virus that causes COVID-19. This EUA will remain in effect (meaning this test can be used) for the duration of the COVID-19 declaration justifying emergency of IVDs, unless it is terminated or revoked by FDA (after which the test may no longer be used). When diagnostic testing is negative, the possibility of a false negative should be considered in the context of a patient's recent exposures and the presence of clinical signs and symptoms consistent with SARS-CoV-2. Performed By: #### [facility] #### [facility] [address] [place] [address] Dr. Jorge Luis Ferris Vital Signs Date Time Vital Sign Value Performing Clinician Facility 03-28-2023 00:51-0500 Diastolic blood pressure 71 mm[Hg] CORE [employer]ER [facility] [employer] Work Phone: [facility] 03-28-2023 00:51-0500 Heart rate 76 /min [employer] [facility] [employer] Work Phone: [facility] 03-28-2023 00:51-0500 Respiratory rate 20 /min CORE [employer]ER [facility] [employer] Work Phone: [facility] 03-28-2023 00:51-0500 SaO2% (BldA) [Mass fraction] 98 % CORE [employer] [facility] [employer] Work Phone: [facility] 03-28-2023 00:51-0500 Systolic blood pressure 122 mm[Hg] CORE PLACER [facility] [employer] Work Phone: [facility] 03-27-2023 21:15-0500 Body height 152.4 cm CORE PLACER [facility] [employer] Work Phone: [facility] 03-27-2023 21:15-0500 Body temperature 98 [degF] CORE PLACERBebeto [employer] Work Phone: [facility] 03-27-2023 21:15-0500 Body weight 99.79 kg RUTH ANN [employer] Work Phone: [facility] 02-17-2023 09:30-0500 Body height 152.4 cm Uriah Skinner Other [facility] Other 02-17-2023 09:30-0500 Body mass index (BMI) [Ratio] 43.49 kg/m2 Uriah Skinner Other [facility] Other 02-17-2023 09:30-0500 Body weight 101.02 kg Uriah Skinner Other [facility] Other 02-17-2023 09:30-0500 Diastolic blood pressure 81 mm[Hg] Uriah Skinner Other [facility] Other 02-17-2023 09:30-0500 Respiratory rate 18 /min Uriah Skinner Other [facility] Other 02-17-2023 09:30-0500 SaO2% (BldA) [Mass fraction] 98 % Uriah Skinner Other [facility] Other 02-17-2023 09:30-0500 Systolic blood pressure 117 mm[Hg] Uriah Skinner Other [facility] Other 12-04-2022 14:00-0400 Body height 152.4 cm Elinor Workman Other [facility] Other 11-24-2022 11:00-0400 Body height 152.4 cm Uriah Skinner Other [facility] Other 11-24-2022 11:00-0400 Body mass index (BMI) [Ratio] 45.64 kg/m2 Uriah Richarddiff Other [facility] Other 11-24-2022 11:00-0400 Body weight 106.01 kg Uriah Richarddiff Other [facility] Other 11-24-2022 11:00-0400 Diastolic blood pressure 81 mm[Hg] Uriah Richarddiff Other [facility] Other 11-24-2022 11:00-0400 Respiratory rate 18 /min Uriah Richarddiff Other [facility] Other 11-24-2022 11:00-0400 SaO2% (BldA) [Mass fraction] 97 % Uriah Richarddiff Other [facility] Other 11-24-2022 11:00-0400 Systolic blood pressure 125 mm[Hg] Uriah Richarddiff Other [facility] Other 08-11-2022 14:00-0400 Body height 152.4 cm THYME Other [facility] Other 08-11-2022 14:00-0400 Body mass index (BMI) [Ratio] 46.28 kg/m2 [employer] Other [facility] Other 08-11-2022 14:00-0400 Body temperature 97.6 [degF] [employer] Other [facility] Other 08-11-2022 14:00-0400 Body weight 107.5 kg Tea Easterwood Other [facility] Other 08-11-2022 14:00-0400 Diastolic blood pressure 76 mm[Hg] Eta Easterwood Other [facility] Other 08-11-2022 14:00-0400 Respiratory rate 20 /min Tea Easterwood Other [facility] Other 08-11-2022 14:00-0400 SaO2% (BldA) [Mass fraction] 98 % Tea Easterwood Other [facility] Other 08-11-2022 14:00-0400 Systolic blood pressure 122 mm[Hg] Tea Easterwood Other [facility] Other 07-28-2022 15:05-0400 Diastolic blood pressure 76 mm[Hg] CORE PLACER [facility] Work Phone: [facility] 07-28-2022 15:05-0400 Heart rate 90 /min CORE PLACER Tea Easterwood Work Phone: [facility] 07-28-2022 15:05-0400 Respiratory rate 16 /min CORE PLACER Tea Easterwood Work Phone: [facility] 07-28-2022 15:05-0400 SaO2% (BldA) [Mass fraction] 95 % CORE PLACER Tea Easterwood Work Phone: [facility] 07-28-2022 15:05-0400 Systolic blood pressure 119 mm[Hg] CORE PLACER Tea Easterwood Work Phone: [facility] 07-28-2022 13:36-0400 Body height 152.4 cm CORE PLACER Tea [employer] Work Phone: [facility] 07-28-2022 13:36-0400 Body weight 107.5 kg CORE PLACER Tea Donovan Work Phone: [facility] 07-14-2022 10:45-0400 Body height 152.4 cm Tea Easterwood Other [facility] Other 07-14-2022 10:45-0400 Body mass index (BMI) [Ratio] 46.28 kg/m2 Tea Easterwood Other [facility] Other 07-14-2022 10:45-0400 Body temperature 98.2 [degF] Tea Easterwood Other [facility] Other 07-14-2022 10:45-0400 Body weight 107.5 kg Tea Easterwood Other [facility] Other 07-14-2022 10:45-0400 Diastolic blood pressure 70 mm[Hg] Tea Easterwood Other [facility] Other 07-14-2022 10:45-0400 Respiratory rate 20 /min Tea Easterwood Other [facility] Other 07-14-2022 10:45-0400 SaO2% (BldA) [Mass fraction] 98 % Tea Easterwood Other [facility] Other 07-14-2022 10:45-0400 Systolic blood pressure 128 mm[Hg] Tea Easterwood Other [facility] Other 06-23-2022 11:00-0400 Body height 152.4 cm Tea Easterwood Other [facility] Other 06-23-2022 11:00-0400 Body mass index (BMI) [Ratio] 46.09 kg/m2 Teazuleyma Lisaersandee Other [facility] Other 06-23-2022 11:00-0400 Body temperature 98.3 [degF] Tea Easterwood Other [facility] Other 06-23-2022 11:00-0400 Body weight 107.05 kg Tea [employer] Other [facility] Other 06-23-2022 11:00-0400 Diastolic blood pressure 82 mm[Hg] Tea [employer] D Other [facility] Other 06-23-2022 11:00-0400 Respiratory rate 20 /min Tea [employer] Other [facility] Other 06-23-2022 11:00-0400 SaO2% (BldA) [Mass fraction] 98 % Tea [employer] Other [facility] Other 06-23-2022 11:00-0400 Systolic blood pressure 130 mm[Hg] Tea [employer] Other [facility] Other 06-19-2022 15:15-0400 Body height 152.4 cm Johann Moe Other [facility] Other 06-19-2022 15:15-0400 Body mass index (BMI) [Ratio] 46.48 kg/m2 Johann Moe Other [facility] Other 06-19-2022 15:15-0400 Body weight 107.96 kg Johann oMe Other [facility] Other 06-19-2022 15:15-0400 Diastolic blood pressure 91 mm[Hg] Johann Moe Other [facility] Other 06-19-2022 15:15-0400 Respiratory rate 20 /min Johann Moe Other [facility] Other 06-19-2022 15:15-0400 Systolic blood pressure 152 mm[Hg] Johann Moe Other [facility] Other 05-01-2022 11:00-0500 Body height 152.4 cm THYME Other [facility] Other 05-01-2022 11:00-0500 Body mass index (BMI) [Ratio] 45.7 kg/m2 [employer] Other [facility] Other 05-01-2022 11:00-0500 Body temperature 97.5 [degF] [facility] Other [facility] Other 05-01-2022 11:00-0500 Body weight 106.14 kg [facility] Other [facility] Other 05-01-2022 11:00-0500 Diastolic blood pressure 78 mm[Hg] Tea [employer]Super Vitamin D Other [facility] Other 05-01-2022 11:00-0500 Respiratory rate 20 /min [facility] Other [facility] Other 02-02-2023 11:00-0500 SaO2% (BldA) [Mass fraction] 99 % Tea Easterwood Other [facility] Other 05-01-2022 11:00-0500 Systolic blood pressure 122 mm[Hg] Tea Easterwood Other [facility] Other 04-03-2022 11:00-0500 Body height 152.4 cm Tea Easterwood Other [facility] Other 04-03-2022 11:00-0500 Body mass index (BMI) [Ratio] 46.67 kg/m2 Tea Sloanerwood Other [facility] Other 04-03-2022 11:00-0500 Body temperature 98.2 [degF] Tea Easterwood Other [facility] Other 04-03-2022 11:00-0500 Body weight 108.41 kg Tea Sloanersandee Other [facility] Other 04-03-2022 11:00-0500 Diastolic blood pressure 70 mm[Hg] Tea Easterwood Other [facility] Other 04-03-2022 11:00-0500 Respiratory rate 20 /min Tea Easterwood Other [facility] Other 04-03-2022 11:00-0500 SaO2% (BldA) [Mass fraction] 99 % Tea Easterwood Other [facility] Other 04-03-2022 11:00-0500 Systolic blood pressure 118 mm[Hg] Tea Easterwood Other [facility] Other 01-28-2022 14:30-0400 Body height 152.4 cm Tea Easterwood Other [facility] Other 01-28-2022 14:30-0400 Body mass index (BMI) [Ratio] 48.43 kg/m2 Tea Easterwood Other [facility] Other 01-28-2022 14:30-0400 Body temperature 96.1 [degF] Tea Easterwood Other [facility] Other 01-28-2022 14:30-0400 Body weight 112.49 kg Tea Easterwood Other [facility] Other 01-28-2022 14:30-0400 Diastolic blood pressure 84 mm[Hg] Tea Easterwood Other [facility] Other 01-28-2022 14:30-0400 Respiratory rate 20 /min Tea Easterwood Other [facility] Other 01-28-2022 14:30-0400 SaO2% (BldA) [Mass fraction] 99 % Tea Easterwood Other [facility] Other 01-28-2022 14:30-0400 Systolic blood pressure 126 mm[Hg] Tea Easterwood Other [facility] Other 10-14-2021 14:00-0400 Body height 152.4 cm Tea Easterwood Other [facility] Other 10-14-2021 14:00-0400 Body temperature 97.1 [degF] Tea Easterwood Other [facility] Other 10-14-2021 14:00-0400 Diastolic blood pressure 80 mm[Hg] Tea Easterwood Other [facility] Other 10-14-2021 14:00-0400 Respiratory rate 18 /min Tea Sloanerwood Other [facility] Other 10-14-2021 14:00-0400 SaO2% (BldA) [Mass fraction] 99 % Tea Sloanerwood Other [facility] Other 10-14-2021 14:00-0400 Systolic blood pressure 122 mm[Hg] Tea Sloanerwood Other [facility] Other 09-26-2021 16:30-0400 Body height 152.4 cm Tea Sloanersandee Other [facility] Other 09-26-2021 16:30-0400 Body mass index (BMI) [Ratio] 47.45 kg/m2 Tea [employer] Other [facility] Other 09-26-2021 16:30-0400 Body temperature 98.1 [degF] Tea Easterwood Other [facility] Other 09-26-2021 16:30-0400 Body weight 110.22 kg Tea Sloanerwood Other [facility] Other 09-26-2021 16:30-0400 Diastolic blood pressure 100 mm[Hg] Tea Easterwood Other [facility] Other 09-26-2021 16:30-0400 Respiratory rate 20 /min Tea Easterwood Other [facility] Other 09-26-2021 16:30-0400 SaO2% (BldA) [Mass fraction] 99 % Tea Easterwood Other [facility] Other 09-26-2021 16:30-0400 Systolic blood pressure 148 mm[Hg] Tea Easterwood Other [facility] Other 09-17-2021 10:30-0400 Body height 152.4 cm Tea Easterwood Other [facility] Other 09-17-2021 10:30-0400 Body mass index (BMI) [Ratio] 46.87 kg/m2 Tea Easterwood Other [facility] Other 09-17-2021 10:30-0400 Body temperature 98 [degF] Tea Easterwood Other [facility] Other 09-17-2021 10:30-0400 Body weight 108.86 kg Tea Easterwood Other [facility] Other 09-17-2021 10:30-0400 Diastolic blood pressure 64 mm[Hg] Tea Easterwood Other [facility] Other 09-17-2021 10:30-0400 Respiratory rate 20 /min Tea Easterwood Other [facility] Other 09-17-2021 10:30-0400 SaO2% (BldA) [Mass fraction] 99 % Tea Easterwood Other [facility] Other 09-17-2021 10:30-0400 Systolic blood pressure 128 mm[Hg] Tea Easterwood Other [facility] Other 09-02-2021 10:30-0400 Body height 152.4 cm Tea Easterwood Other [facility] Other 09-02-2021 10:30-0400 Body mass index (BMI) [Ratio] 46.87 kg/m2 Tea Easterwood Other [facility] Other 09-02-2021 10:30-0400 Body temperature 98.2 [degF] Tea Easterwood Other [facility] Other 09-02-2021 10:30-0400 Body weight 108.86 kg Tea Easterwood Other [facility] Other 09-02-2021 10:30-0400 Diastolic blood pressure 84 mm[Hg] Tea Easterwood Other [facility] Other 09-02-2021 10:30-0400 Respiratory rate 20 /min Tea Easterwood Other [facility] Other 09-02-2021 10:30-0400 SaO2% (BldA) [Mass fraction] 98 % Tea Easterwood Other [facility] Other 09-02-2021 10:30-0400 Systolic blood pressure 128 mm[Hg] Tea Easterwood Other [facility] Other Encounters Encounter Date Encounter Type Care Provider Facility Start: 04-02-2023 End: 04-02-2023 ambulatory Tea Easterwood Other [facility] Other Start: 04-02-2023 Telephone encounter Tea Donovan [facility] Start: 03-27-2023 End: 03-28-2023 Emergency department patient visit Karoline Londono Jr Facility:[facility] Start: 03-27-2023 End: 03-28-2023 Emergency department patient visit CORE PLACER Tea Donvoan Work Phone: [facility] Work Phone: Start: 02-23-2023 End: 02-23-2023 ambulatory Tea Donovan Other [facility] Other Start: 02-23-2023 Telephone encounter Tea Donovan [facility] Start: 02-18-2023 End: 02-18-2023 ambulatory Tea Donovan Other [facility] Other Start: 02-18-2023 Telephone encounter Tea Donovan [facility] Start: 02-17-2023 Follow-up encounter Uriah borges [facility] Start: 02-17-2023 End: 02-17-2023 ambulatory CORE PLACER Tea Donovan Work Phone: [facility] Other Start: 02-17-2023 End: 02-17-2023 Patient encounter procedure CORE PLACER Tea Donovan Work Phone: [facility] Start: 02-17-2023 Registered Recurring CORE PLACERBebeto Donovan Work Phone: [facility] Work Phone: Start: 02-12-2023 End: 02-12-2023 ambulatory Uriah Skinner Other [facility] Other Start: 02-12-2023 Telephone encounter Uriah borges [facility] Start: 01-15-2023 End: 01-15-2023 ambulatory Uriah Skinner Other [facility] Other Start: 01-15-2023 Telephone encounter Uriah borges [facility] Start: 01-14-2023 End: 01-14-2023 ambulatory Uriah Skinner Other [facility] Other Start: 01-14-2023 Telephone encounter Uriah borges [facility] Start: 12-11-2022 End: 12-11-2022 ambulatory Tea Sloanerwood Other [facility] Other Start: 12-11-2022 PF ONLINE E/M PHY [facility] - [facility] Start: 12-04-2022 End: 12-04-2022 ambulatory Elinor Davidt Other [facility] Other Start: 12-04-2022 IBT FOR OBESITY GROU P 2-10 30M Elinor Frankiet [facility] Start: 11-24-2022 End: 11-24-2022 ambulatory Uriah Skinner Other [facility] Other Start: 11-24-2022 Follow-up encounter Uriah borges [facility] Start: 11-24-2022 Telephone encounter Tea Zion [facility] Start: 10-15-2022 End: 10-15-2022 ambulatory Uriah Skinner Other [employer] Other Start: 10-15-2022 Telephone encounter Uriah Alan [facility] Start: 09-26-2022 End: 09-26-2022 ambulatory Tea Easterwood Other [employer] Other Start: 09-26-2022 Telephone encounter Tea Donovan [facility] Start: 09-15-2022 End: 09-15-2022 ambulatory Teazuleyma Pagewood Other [employer] Other Start: 09-15-2022 Telephone encounter Teazuleyma Pagewood [facility] Start: 08-11-2022 End: 08-11-2022 ambulatory Teazuleyma Donovan Other [employer] Other Start: 08-11-2022 Office outpatient visit 25 minutes Teazuleyma Pagewood [facility] Start: 07-29-2022 End: 07-29-2022 ambulatory Neftali Snow Other [employer] Other Start: 07-29-2022 Telephone encounter Neftali Alan [facility] Start: 07-28-2022 End: 07-28-2022 ambulatory Tea Donovan Facility:[facility] Start: 07-28-2022 End: 07-28-2022 Admission to same day surgery center [employer] Tea Donovan Work Phone: [facility] Work Phone: Start: 07-28-2022 End: 07-28-2022 ambulatory CORE PLACER Tea Donovan Work Phone: [facility] Work Phone: Start: 07-21-2022 End: 07-21-2022 ambulatory Tea Pagewood Other [employer] Other Start: 07-21-2022 Telephone encounter Tea Pagewood [facility] Start: 07-14-2022 End: 07-14-2022 ambulatory Tea Sloanerwood Other [employer] Other Start: 07-14-2022 Office outpatient visit 15 minutes Tea Easterwood [facility] Start: 07-14-2022 Physical examination Tea Easterwood [facility] Start: 06-23-2022 End: 06-23-2022 ambulatory Tea Easterwood Other [employer] Other Start: 06-23-2022 Office outpatient visit 40 minutes Tea Easterwood [facility] Start: 06-23-2022 Telephone encounter Moises hannah [facility] Start: 06-19-2022 End: 06-19-2022 ambulatory Johann Moe Other [employer] Other Start: 06-19-2022 FQHC visit new patient Johann Moe [facility] Start: 06-10-2022 End: 06-10-2022 ambulatory Tea Easterwood Other [employer] Other Start: 06-10-2022 Telephone encounter Tea Easterwood [facility] Start: 06-06-2022 End: 06-06-2022 ambulatory [facility] Facility:[facility] Start: 05-15-2022 End: 05-15-2022 ambulatory Tea Easterwood Other [employer] Other Start: 05-15-2022 Telephone encounter Tea Easterwood [facility] Start: 05-08-2022 End: 05-09-2022 ambulatory TEA EASTERWOOD Facility:[facility] Start: 05-01-2022 End: 05-01-2022 ambulatory Tea Easterwood Other [employer] Other Start: 05-01-2022 Office outpatient visit 15 minutes Tea Easterwood [facility] Start: 04-04-2022 End: 04-04-2022 ambulatory Tea Easterwood Other [employer] Other Start: 04-04-2022 Telephone encounter Tea Sloanerwood [facility] Start: 04-03-2022 End: 04-03-2022 ambulatory Tea Easterwood Other [employer] Other Start: 04-03-2022 Office outpatient visit 25 minutes Tea Sloanerwood [facility] Start: 03-19-2022 End: 03-19-2022 ambulatory Tea Sloanerwood Other [employer] Other Start: 03-19-2022 ONLINE E/M RATNAY LINDSEYUL 02-16 Tea Easterwood [facility] Start: 03-13-2022 End: 03-13-2022 ambulatory Tea Sloanerwood Other [employer] Other Start: 03-13-2022 Telephone encounter Tea Sloanerwood [facility] Start: 03-12-2022 End: 03-12-2022 ambulatory Tea Sloanerwood Other [employer] Other Start: 03-12-2022 Telephone encounter Tea Sloanerwood [facility] Start: 03-03-2022 End: 03-03-2022 ambulatory Johann Moe Other [employer] Other Start: 03-03-2022 Telephone encounter Johann Moe [facility] Start: 02-24-2022 End: 02-24-2022 ambulatory Tea Sloanerwood Other [employer] Other Start: 02-24-2022 Telephone encounter Tea Sloanerwood [facility] Start: 02-17-2022 End: 02-17-2022 ambulatory Tea Easterwood Other [employer] Other Start: 02-17-2022 Telephone encounter Tea Easterwood [facility] Start: 02-06-2022 End: 02-06-2022 ambulatory Tea Easterwood Other [employer] Other Start: 02-06-2022 Telephone encounter Tea Easterwood [facility] Start: 02-05-2022 End: 02-06-2022 ambulatory TEA EASTERWOOD Facility:[facility] Start: 02-04-2022 End: 02-05-2022 ambulatory TEA EASTERWOOD Facility:[facility] Start: 01-28-2022 End: 01-28-2022 ambulatory Tea Easterwood Other [employer] Other Start: 01-28-2022 Office outpatient visit 40 minutes Tea Easterwood [facility] Start: 01-22-2022 End: 01-22-2022 ambulatory Tea Easterwood Other [employer] Other Start: 01-22-2022 Telephone encounter Tea Easterwood [facility] Start: 01-20-2022 End: 01-20-2022 ambulatory Tea Easterwood Other [employer] Other Start: 01-20-2022 Telephone encounter Tea Easterwood [facility] Start: 01-16-2022 End: 01-16-2022 ambulatory Tea Easterwood Other [employer] Other Start: 01-16-2022 Telephone encounter Tea Easterwood [facility] Start: 01-13-2022 End: 01-13-2022 ambulatory Natalie Blackwell Other [employer] Other Start: 01-13-2022 Telephone encounter Natalie Blackwell [facility] Start: 12-19-2021 End: 12-19-2021 ambulatory Tea Easterwood Other [employer] Other Start: 12-19-2021 Telephone encounter Tea Easterwood [facility] Start: 11-19-2021 End: 11-19-2021 ambulatory Tea Easterwood Other [employer] Other Start: 11-19-2021 Telephone encounter Tea Easterwood [facility] Start: 10-29-2021 End: 10-29-2021 ambulatory Tea Easterwood Other [employer] Other Start: 10-29-2021 Telephone encounter Tea Easterwood [facility] Start: 10-14-2021 End: 10-14-2021 ambulatory Tea Easterwood Other [employer] Other Start: 10-14-2021 Office outpatient visit 40 minutes Tea Easterwood [facility] Start: 10-14-2021 Telephone encounter Tea Easterwood [facility] Start: 10-10-2021 ambulatory TEA EASTERWOOD Facilit y:[facility] Start: 10-07-2021 End: 10-07-2021 ambulatory Tea Easterwood Other [employer] Other Start: 10-07-2021 Telephone encounter Tea Easterwood [facility] Start: 09-26-2021 End: 09-26-2021 ambulatory Tea Easterwood Other [employer] Other Start: 09-26-2021 Office outpatient visit 40 minutes Tea Easterwood [facility] Start: 09-19-2021 End: 09-19-2021 ambulatory Tea Easterwood Other [employer] Other Start: 09-19-2021 Telephone encounter Tea Easterwood [facility] Start: 09-17-2021 End: 09-17-2021 ambulatory Tea Donovan Other [employer] Other Start: 09-17-2021 Office outpatient visit 40 minutes eTa Donovan [facility] Start: 09-02-2021 End: 09-02-2021 ambulatory Tea Donovan Other [employer] Other Start: 09-02-2021 Encounter for genera l adult medical examination without [facility] Start: 09-02-2021 Initial preventive medicine new pt age 18-39yrs [facility] Start: 07-10-2021 End: 07-10-[address] MARY GRAF . Facility: Start: 06-12-2021 End: 06-12-2021 ambulatory OLI REYES Facility:[facility] Start: 02-26-2018 End: 02-27-2018 Patient encounter procedure Ranjith Rossana Facility:CD:[id number] Procedures Date Procedure Procedure Detail Performing Clinician Start: 07-28-2022 Esophagogastroduodenoscopy CORE PLACER Tea Donovan Work Phone: Plan of Treatment Date Care Activity Detail Author Start: 07-28-2022 [facility] Patient Education [facility] Work Phone: Patient referral [facility] Work Phone: Immunizations Immunization Date Immunization Notes Care Provider Pankaj graf 03-01-2021 Do not use COVID-19 Pfizer 2 dose Tea Easterwood Other [employer] Other 01-27-2021 influenza, injectable, quadrivalent, contains preservative Tea Sloanerwood Other [employer] Other 04-06-2020 Do not use COVID-19 Pfizer 2 dose Tea Easterwood Other [employer] Other 03-19-2020 Do not use COVID-19 Pfizer 2 dose Tea Zion Other [employer] Other 05-21-2010 influenza virus vaccine, split virus (incl. purified surface antigen) Tea Donovan Other [employer] Other Payers Date Payer Category Payer Medicaid [id number] 2. [id number] 2018 Unknown [id number] 1990 Unknown [id number] 2.16.84 [id number] 1990 Unknown [id number] 2.16.84 [id number] 1990 Unknown [id number] 2.16.84 [id number] 1990 Unknown [id number] 2.16.84 [id number] 1990 Unknown [id number] 2.16.84 [id number] 1990 Unknown [id number] 2.16.84 [id number] 1990 Unknown [id number] 2.16.84 [id number] 1990 Unknown [id number] 2.16.84 [id number] 1959 Self-pay 1959 Unknown [id number] Unknown [id number] 2.16.8 [id number] Unknown [id number] 2.16.8 [id number] Unknown [id number] 2.16.8 [id number] Unknown [id number] 2.16.8 [id number] Social History Date Type Detail Facility Unknown if ever smoked [facility] Other Sex Assigned At Sex Assigned At Bir th [employer] Other Start: 07-28-2022 End: 03-27-2023 Tobacco smoking status NHIS Ex-smoker (finding) [facility] Start: 1990 Sex Assigned At Female F [facility] Medical Equipment Procedure Code Equipment Code Equipment Origin al Text Equipment Identifier Dates [place] [id number] X 5 MM Start: 01-15-2023 Goals Date Patient Goal Desired Activity /State Clinical Notes 09-02-2021 to 02-18-2023 Note Date & Type Note Facility 02-18-2023 Evaluation note Encounter Date Diagnosis Assessment Notes Jan, Primary hypertension (ICD-10 - I10) [facility] Other 11-21-2023 Evaluation note* Encounter Date Diagnosis Assessment Notes Treatment Notes Treatment Clinical Notes Jan, Hypertension (ICD-10 - I10) Jan, Hypercholesterolemia (ICD-10 - E78.00) Jan, BMI 45.0-49.9, adult (ICD-10 - Z68.42) Jan, Fatty liver (ICD-10 - K76.0) Jan, Depression, unspecif ied depression type (ICD-10 - F32.9) Jan, GERD (gastroesophage al reflux disease) (ICD-10 - K21.9) Jan, Migraine (ICD-10 - G43.909) Jan, Snores (ICD-10 - R06.83) Jan, Medication monitorin g encounter (ICD-10 - Z51.81) [facility] Other 09-14-2023 Evaluation note* Encounter Date Diagnosis Assessment Notes Treatment Notes Treatment Clinical Notes Nov, Strep pharyngitis (ICD-10 - J02.0) Strep testing did result as positive during drive up testing. Will prescribe antibiotic. Aware of what symptoms warrant immediate evaluation by emergency department. Take entire course of antibiotic, take with probiotic, please change your toothbrush and gargle with warm salt water as needed. [id number] medications suggested. Written off work for 2 days. Nov, Acute cough (ICD-10 - R05.1) Due to her symptoms, patient would really like repeat COVID, influenza and strep testing. She does drive to the office for drive up testing. Patient to continue conservative measures and [id number] medications for symptom relief of the cough. Aware of what symptoms would need more timely and closer evaluation. Nov, Other *Progress note was completed with the assistance of voice recognition software for dictation purposes. Please excuse any grammatical errors that were not corrected during review process. I have spent 20 minutes with/on this patient and over 50% of the visit was counseling done by myself, Tea RIVAS. [facility] Other 09-07-2023 Evaluation note* Encounter Date Diagnosis Assessment Notes Treatment Notes Treatment Clinical Notes Nov, Obesity, unspecified classification, unspecified obesity type, unspecified whether serious comorbidity present (ICD-10 - E66.9) Nov, BMI 45.0-49.9, adult (ICD-10 - Z68.42) Nov, Other Summary of Visi t: (A) Presentation of Plate Method discussed (B) Sample meal ideas reviewed (C) exercise recommendations reviewed Patient set the following goals: - patient set personal goal using given handout. [employer] Other 08-28-2023 Evaluation note* Encounter Date Diagnosis Assessment Notes Treatment Notes Treatment Clinical Notes Oct, Hypertension (ICD-10 - I10) Oct, Hypercholesterolemia (ICD-10 - E78.00) Oct, BMI 45.0-49.9, adult (ICD-10 - Z68.42) Oct, Fatty liver (ICD-10 - K76.0) Oct, Depression, unspecif ied depression type (ICD-10 - F32.9) Oct, GERD (gastroesophage al reflux disease) (ICD-10 - K21.9) Oct, Migraine (ICD-10 - G43.909) Oct, Snores (ICD-10 - R06.83) [employer] Other 08-28-2023 Evaluation note* Encounter Date Diagnosis Assessment Notes Treatment Notes Treatment Clinical Notes Oct, Primary hypertension (ICD-10 - I10) [employer] Other 06-19-2023 Evaluation note* Encounter Date Diagnosis Assessment Notes Treatment Notes Treatment Clinical Notes Aug, Anxiety (ICD-10 - F41.9) [facility] Other 05-15-2023 Evaluation note* Encounter Date Diagnosis Assessment Notes Treatment Notes Treatment Clinical Notes July, Weight gain (ICD-10 - R63.5) Her sister is utilizing a GLP-1 for weight management and is doing well. I did ask her if she had time to reach out to the insurance company to see which one is covered however she states she did not. I had encouraged her to reach out to the insurance company to see which one is covered so we can move forward with prescribing. Discussed GLP-1 at length. Declines weight management referral at this time. Discussed several small meals a day and incorporating more fruits and veggies into the diet. I do want her to try and avoid the fried and processed foods. I did encourage her to exercise at least 45 minutes a day on her days off of work. If this is not feasible, I would highly recommend she utilize the gym at work on her workdays. July, Anxiety (ICD-10 - F41.9) Discussed her anxiety and depression. I do feel that activity and exercise will help reduce some of her symptoms. I am agreeable to increasing the medication and putting a referral into health services in [place]. No emergent evaluation by psychiatry is warranted today. July, Bruising (ICD-10 - T14.8XXA) Briefly discussed the intermittent bruising. Has none to demonstrate today. Recent CBC was normal. We will continue to monitor closely. No further work-up warranted today. July, Diarrhea, unspecified type (ICD-10 - R19.7) Discussed the diarrhea. She does not feel her dietary intake would cause her GI disturbance, pain, bloating or diarrhea. Unfortunately I do feel that it is. Her 24 hr dietary recall is very fried and unhealthy. Please incorporate more fruits and vegetables into the diet. I will not follow-up regarding the EGD results with her. This is something she needs to discuss further with gastroenterology. Patient verbalized understanding. July, Other *Progress note was completed with the assistance of voice recognition software for dictation purposes. Please excuse any grammatical errors that were not corrected during review process. [employer] Other [facility] Encounter Date Diagnosis Assessment Notes Treatment Notes Treatment Clinical Notes Jun, Primary hypertension (ICD-10 - I10) [employer] Other 04-17-2023 Evaluation note* Encounter Date Diagnosis Assessment Notes Treatment Notes Treatment Clinical Notes Jun, Physical exam (ICD-10 - Z00.00) Patient is seen in the office today for employement physical. Patient appears to be physically and mentally well. Pt is free of acute illness and communicable disease. Pt does not suffer from injury or substance abuse disorders at this time. In my professional opinion, patient is able to participate in all activities expected of her. If any further questions, please contact my office. *Progress note was completed with the assistance of voice recognition software for dictation purposes. Please excuse any grammatical errors that were not corrected during review process. [employer] Other 03-27-2023 Evaluation note* Encounter Date Diagnosis Assessment Notes Treatment Notes Treatment Clinical Notes May, Depression, unspecified depression type (ICD-10 - F32.A) Discussed the night sweats and nightmares. I will change her SNRI today. Discussed discontinuing the medication as of today and starting the new medication tomorrow. Will provide patient with 8-week course and follow-up at 4 to 6 weeks. Reiterated the side effects of medication and when adverse reaction was to occur, report immediately to ER. Patient verbalizes understanding. I am wondering if her pain and neurologic symptoms improve a bit with the change of this medication as well. May, Weight gain (ICD-10 - R63.5) Did discuss trialing GLP-1 in the future for weight loss. Did discuss that insurance may not pay for the medication. I would like her to discuss this medication further once her GI issues are resolved. This primary side effect of these medications is GI disturbance. Patient verbalizes understanding. At that point I can try to write her for a GLP-1 and initiate the medication or refer her to weight management through [facility]. Patient verbalizes understanding May, Gastroesophageal reflux disease without esophagitis (ICD-10 - K21.9) Discussed with patient expectations in regards to EGD. I would like her to continue moving forward with the procedure. Much emotional and motivational support given today. I did encourage her to please refrain from takeout and restaurants with high fatty greasy meals such as Sandra Garay as this is exacerbating her GI issues. May, Acute cystitis witho ut hematuria (ICD-10 - N30.00) Reviewed labs in office today. Symptoms resolved without concerns. Nothing further needed from a primary care standpoint today. We will continue to follow closely however for possible underlying nephrolithiasis. May, Complaint of paresthesia (ICD-10 - R20.2) To be resolved without concerns. Patient will monitor closely. Is established with neurology and we are changing the SNRI so I am wondering if this helps the intermittent exacerbations as well. CT of head and cervical spine is reviewed in office which is essentially negative. Has completed PT in the past without desire to repeat for cervical spine. May, Anxiety (ICD-10 - F41.9) I understand the anxiety attacks are related to the unemployment, needing to move, interpersonal issues with her mother. Unfortunately there is not much I can do in regards to these external stressors. I encouraged her to participate in group therapy, counseling, mu-ism, exercise, hobby what ever she has personal interested in, to help manage and maintain her mental health and adjunct to the medications. Without suicidal or homicidal ideation, self-harm acts or substance abuse. May, Subconjunctival hemorrhage of left eye (ICD-10 - H11.32) Very small hemorrhage noted to sclera of left eye, laterally. Denies visual change, swelling or pain to the left eye, pressure behind the eye, dizziness or tinnitus. Does report twitching/pulsating to the left suborbital location. Also admits to headache intermittently on the left side x2 to 3 days. I explained that typically the hemorrhage is benign in nature however the cause may not be. She is without red flags at this time and while I do feel that referral to ER would not be good use of medical resources, I do explain that if her symptoms persist or worsen, she needs to reach out to Dr. Quispe in [place]. Patient verbalizes understanding. He is aware of symptoms would indicate underlying emergent pathology. May, Hospital discharge follow-up (ICD-10 - Z09) Hospital documentation, testing, images, discharge and medications reviewed in preparation for this visit. May, Other *Progress note was completed with the assistance of voice recognition software for dictation purposes. Please excuse any grammatical errors that were not corrected during review process. [facility] Other 03-23-2023 Evaluation note* Encounter Date Diagnosis Assessment Notes Treatment Notes Treatment Clinical Notes May, Epigastric pain (ICD-10 - R10.13) Continue Omeprazole for now Arrange for EGD May, RUQ abdominal pain (ICD-10 - R10.11) May, Duodenitis (ICD-10 - K29.80) May, Abnormal finding on imaging (ICD-10 - R93.89) [facility] Other 02-16-2023 Evaluation note* Encounter Date Diagnosis Assessment Notes Treatment Notes Treatment Clinical Notes Apr, Duodenitis (ICD-10 - K29.80) [facility] [facility] Other 02-02-2023 Evaluation note* Encounter Date Diagnosis Assessment Notes Treatment Notes Treatment Clinical Notes Apr, Obesity, morbid, BMI 40.0-49.9 (ICD-10 - E66.01) Patient has clearly made a good radha effort for several months on her own to lose weight with little success. Pt to start Adipex daily. Medication is a stimulant. May cause you to be jittery or constipated. Take in the morning, may also take stool softener daily as needed. Continue to eat a healthy well balanced diet and continue work-out regimine. Pt aware that this is not a cure for obesity but a tool used to help them during their weight loss plateau. Pt aware that they need to continue to work hard at weight loss or the weight will be regained. Side effects discussed and understood. Pt education printed and discussed. Pt notified of prescribing schedule with 30 day dispensing, no refills, for up to 12 weeks, with a 6 month break in-between treatments. Id SOB, CP, mood changes, tachycardia, HTN, headaches, blurred vision occur, go to ER and Follow-up with me immediately. I have run an [place] report and the patient is clear to take a controlled substance. Pt does not have a psychiatric illness or previous drug/alcohol abuse history that is concerning. Pt is responsibile and well educated. I feel comfortable prescribing this medication at this time. Okay to switch to tablets. I also made her aware that some of the acid reflux and constipation will likely improve with the discontinuation of Adipex next month. Patient verbalized understanding Apr, Night sweats (ICD-10 - R61) We will recheck her thyroid level at this time. I do not have concerns over underlying malignancy. Likely night sweats are secondary to venlafaxine. Discussed with patient today. Discussed the risks of discontinuing or changing mental health medications if she feels the medication is working well for her. She concurs that she would like to stay on the medication and the night sweats are not enough to discontinue or change the medication. I will call her with results of thyroid labs. Apr, Other *Progress note was completed with the assistance of voice recognition software for dictation purposes. Please excuse any grammatical errors that were not corrected during review process. [facility] Other 01-06-2023 Evaluation note* Encounter Date Diagnosis Assessment Notes Treatment Notes Treatment Clinical Notes Mar, Obesity, morbid, BMI 40.0-49.9 (ICD-10 - E66.01) [facility] Other 01-05-2023 Evaluation note* Encounter Date Diagnosis Assessment Notes Treatment Notes Treatment Clinical Notes Mar, Obesity, morbid, BMI 40.0-49.9 (ICD-10 - E66.01) Emotional motivational support given today. I do concur, I do feel that working at [employer] will keep her active, reduce her weight and increase her energy levels. Patient has clearly made a good radha effort for several months on her own to lose weight with little success. Pt to start Adipex daily. Medication is a stimulant. May cause you to be jittery or constipated. Take in the morning, may also take stool softener daily as needed. Continue to eat a healthy well balanced diet and continue work-out regimine. Pt aware that this is not a cure for obesity but a tool used to help them during their weight loss plateau. Pt aware that they need to continue to work hard at weight loss or the weight will be regained. Side effects discussed and understood. Pt education printed and discussed. Pt notified of prescribing schedule with 30 day dispensing, no refills, for up to 12 weeks, with a 6 month break in-between treatments. Id SOB, CP, mood changes, tachycardia, HTN, headaches, blurred vision occur, go to ER and Follow-up with me immediately. I have run an OARRS report and the patient is clear to take a controlled substance. Pt does not have a psychiatric illness or previous drug/alcohol abuse history that is concerning. Pt is responsibile and well educated. I feel comfortable prescribing this medication at this time. Patient to call back with pharmacy she would like medication sent to due to the cost at [email or web address] in [place]. Mar, Low back pain, unspecified (ICD-10 - M54.50) Low back pain improving with weight loss and activity. She is still welcome to see chiropractor for adjustment if desired. Nothing further needed from a musculoskeletal standpoint today Mar, Primary hypertension (ICD-10 - I10) Continue to monitor blood pressure closely especially with stimulant on board. It appears that her blood pressure is reduced with activity and weight loss, as anticipated. Doing well and will continue medications as prescribed. Mar, Other *Progress note was completed with the assistance of voice recognition software for dictation purposes. Please excuse any grammatical errors that were not corrected during review process. Of note, I do encourage her to continue to follow through with referral to gastroenterolog y. If something acute was to occur in the near future however please contact our office for follow-up or report to ER if emergent symptoms present. Patient verbalizes understanding. [facility] Other 12-21-2022 Evaluation note* Encounter Date Diagnosis Assessment Notes Treatment Notes Treatment Clinical Notes Feb, Viral illness (ICD-10 - B34.9) Discussed likely she is suffering from viral illness, specifically RSV as her daughter is also RSV positive.Discussed conservative measures for symptom relief as well as [id number] medications for symptom relief. Does not warrant antibiotic or steroid today. Does not warrant albuterol inhaler but is aware of symptoms that would warrant further evaluation and treatment.I will write the patient on for 2 more days for good measure.Patient would like to trial Tessalon Perles for antitussive properties.Tessalon perles as need for persistent cough. Do not chew or crush as it will cause numbing of mouth. RX written for several days. If you feel that you would like more, please call the office for refill. Feb, Other *Progress note was completed with the assistance of voice recognition software for dictation purposes. Please excuse any grammatical errors that were not corrected during review process. For documentation and billing purposes only, patient is at home during the time of this visit.I have spent 13 minutes with/on this patient and over 50% of the visit was counseling done by myself, Tea RIVAS. Off work note was written for patient and emailed via fax machine to her email. [facility] Other 12-14-2022 Evaluation note* Encounter Date Diagnosis Assessment Notes Treatment Notes Treatment Clinical Notes Feb, HLD (hyperlipidemia) (ICD-10 - E78.5) Feb, Fatty liver (ICD-10 - K76.0) [facility] Other 11-21-2022 Evaluation note* Encounter Date Diagnosis Assessment Notes Treatment Notes Treatment Clinical Notes Jan, Depression, unspecified depression type (ICD-10 - F32.A) [facility] Other 11-01-2022 Evaluation note* Encounter Date Diagnosis Assessment Notes Treatment Notes Treatment Clinical Notes Jan, Primary hypertension (ICD-10 - I10) Continue medication as prescribed. We will refill amlodipine at 5 mg dose. Nothing further needed at this time. I do want her to follow through with sleep study for the evaluation of obstructive sleep apnea.If we can manage the sleep apnea via CPAP, she would not require the antihypertensives likely. Jan, Anxiety (ICD-10 - F41.9) Okay to discontinue BuSpar. Patient's mental health is essentially stable at this time. She did no-show with a counseling referral. She does not need to wean off the BuSpar as she has not been taking it regularly.Due to the interest of time, we will need to discuss mental health further in regards to medication management at her next visit. Patient verbalizes understanding Jan, Low back pain, unspecified (ICD-10 - M54.50) Discussed chronic low back pain. Weight loss would absolutely be beneficial. She is agreeable to physical therapy order to [facility]. I do feel they can help her in regards to understanding stretches, good posture, and discussed conservative measures to take into account at home. I highly recommend routine activity even outside of her normal duties of employment. Deferring lumbar x-rays today per patient request. Does not require MRI of the lumbar spine today.Continue anti-inflammatories as needed. We will follow-up regarding physical therapy at her next visit. 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 Discussed possible underlying processes causing the neuropathy. I explained that this is not related to the lumbar issues and pain.She may require EMG in the near future however we will need to discuss this as her at her next Unfortunately due to the interest of time. Jan, Right upper quadrant abdominal pain (ICD-10 - R10.11) Patient has continued right upper quadrant pain. Ultrasound of the abdomen was essentially negative. Patient is agreeable to CT of the abdomen to [facility] however still would like to wait on the referral to gastroenterology. We will follow-up in office regarding the results. Jan, Other *Progress note was completed with the assistance of voice recognition software for dictation purposes. Please excuse any grammatical errors that were not corrected during review process. [facility] Other 10-24-2022 Evaluation note* Encounter Date Diagnosis Assessment Notes Treatment Notes Treatment Clinical Notes Dec, Uncontrolled hypertension (ICD-10 - I10) [facility] Other 10-20-2022 Evaluation note* Encounter Date Diagnosis Assessment Notes Treatment Notes Treatment Clinical Notes Dec, Uncontrolled hypertension (ICD-10 - I10) [facility] Other 08-23-2022 Evaluation note* Encounter Date Diagnosis Assessment Notes Treatment Notes Treatment Clinical Notes Oct, Low back pain, unspecified back pain laterality, unspecified chronicity, unspecified whether sciatica present (ICD-10 - M54.50) Oct, Uncontrolled hypertension (ICD-10 - I10) Oct, Primary hypertension (ICD-10 - I10) [facility] Other 08-02-2022 Evaluation note* Encounter Date Diagnosis Assessment Notes Treatment Notes Treatment Clinical Notes Oct, Depression, unspecified depression type (ICD-10 - F32.A) Oct, Anxiety (ICD-10 - F41.9) Oct, Low back pain, unspecified back pain laterality, unspecified chronicity, unspecified whether sciatica present (ICD-10 - M54.50) [facility] Other 07-18-2022 Evaluation note* Encounter Date Diagnosis Assessment Notes Treatment Notes Treatment Clinical Notes Sep, Uncontrolled hypertension (ICD-10 - I10) Increase Amlodipine. Monitor closely at home, discussed normal readings again. Discussed that if sleep and anxiety can be well controlled, likely blood pressure will be reduced. Discussed red flags and when to report to ER. Sep, Anxiety (ICD-10 - F41.9) Discussed increasing dose to either 15mg BID for anxiety, or 30mg nightly for sleep. Is agreeable to counseling referral to [place] provider. Sep, Low back pain, unspecified back pain laterality, unspecified chronicity, unspecified whether sciatica present (ICD-10 - M54.50) Discussed low back pain and conservative measures. Continue NSAIDs as discussed. Take with food and watch for GI upset especially on omeprazole. Opts out of imaging and physical therapy today. Take muscle relaxer as directed. Do not drink with alcohol or use with other recreational drugs. May cause severe drowsiness. Do not operate a motor vehicle until you know how this medication will effect you. Shared decision-making process to defer steroids today. DO NOT START INCREASED DOSE OF BUSPAR UNTIL FLEXERIL IS COMPLETED. Sep, Abdominal pain, epigastric (ICD-10 - R10.13) Referral to GI would be most beneficial at this point however patient would like to defer at this time. I do not feel that any acute imaging is warranted. Discussed emergent symptoms and when to report to ER. Sep, Fatty liver (ICD-10 - K76.0) Discussed imaging as well as fatty liver diagnosis. Discussed the need for further improvement to dietary intake as well as activity levels.Recheck liver and lipid levels in 6 months. Sep, HLD (hyperlipidemia) (ICD-10 - E78.5) We discussed the importance of a healthy diet.Increase fruits and vegetables 5+ servings/day, fish, turkey, chicken and poultry, whole grain breads, low fat dairy. Limit red meat, butter, fried foods, cheese, and other foods with high saturated fats. Discussed why lipid management is important in preventing risk for heart disease, heart attack, FATTY LIVER and strokes. HANDOUTS PROVIDED IN OFFICE TODAY. Sep, Other *Progress note was completed with the assistance of voice recognition software for dictation purposes. Please excuse any grammatical errors that were not corrected during review process. [facility] Other 06-30-2022 Evaluation note* Encounter Date Diagnosis Assessment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 addition, data may be omitted in some cases. CLINICAL DECISIONS SHOULD BE BASED ON THE PRIMARY CLINICAL RECORDS. [facility] [employer] [facility]. provides no warranty or guarantee of the accuracy or completeness of information in this document.
[2023-04-16 06:16] LABS: Basophils Percent Auto 0.2 % (0.2-2.0); Eosinophils Absolute Auto 0.1 10^3/uL (0.0-0.7); Hematocrit 38.3 % (36.0-48.0); Hemoglobin 12.1 g/dL (12.0-16.0); Immature Granulocytes Abs Auto 0.02 10^3/uL (0.00-0.03); Immature Granulocytes Pct Auto 0.2 % (0.0-0.5); Lymphocytes Absolute Auto 2.6 10^3/uL (1.2-3.8); Lymphocytes Percent Auto 30.5 % (20.5-60.0); Mean Corpuscular HGB Conc 31.6 g/dL (29.9-35.2); Mean Corpuscular Hemoglobin 28.3 pg (26.7-34.0); Mean Corpuscular Volume 89.7 fL (81.0-99.0); Mean Platelet Volume 10.2 fL (9.5-13.5); Monocytes Absolute Auto 0.5 10^3/uL (0.3-0.8); Monocytes Percent Auto 6.1 % (1.7-12.0); Neutrophils Absolute Auto 5.2 10^3/uL (1.4-6.5); Platelet Count 269 10^3/uL (150-450); Red Blood Count 4.27 10^6/uL (4.20-5.40); Red Cell Distribution Width 12.1 % (11.0-15.0); White Blood Count 8.4 10^3/uL (4.0-11.0)
[2023-04-16 06:28] LABS: Glucometer 100 mg/dL (74-106)
[2023-04-16 06:29] LABS: HCG Qualitative NEGATIVE (NEGATIVE)
[2023-04-16] MEDS: LACTATED RINGER'S SOLUTION 1,000 ML 50 ML IV ×2 (07:04→09:15)
[2023-04-16] MEDS: SCOPOLAMINE 1 MG/3 DAYS TRANSDERM PATCH 1 PATCH TD (07:19)
[2023-04-16] MEDS: CEFAZOLIN SODIUM/DEXTROSE,ISO 2 GM/50 ML PIGGYBACK IV (07:36)
--- NOTE | 2023-04-16 07:40 | PC.NURSE ---
PATIENT POSITIONED ON RIGHT SIDE. 0725 TIME OUT PERFORMED. 2 MG OF VERSED AND 4 MG OF ZOFRAN GIVEN AT THIS TIME BY PHYSICIAN. PHYSICIAN CLEANED AREA BEHIND THE KNEE WITH CHLORPREP. BLOCK WAS STARTED AND COMPLETED AT 0732. PATIENT TOLERATED WELL.
--- NOTE | 2023-04-16 08:29 | P.ORON_ITS ---
Brief Operative Note Date of procedure: 04/16/23 Pre-op diagnosis: left ankle impingement, instability and peroneal tendon tear Post-op diagnosis: same as pre-op Procedure: PROCEDURES PERFORMED: 1. Ankle arthroscopy 2. Lateral ankle stabilization with modified Brostrom-Ramirez 3. Peroneal tendon repair 4. Application of short leg splint with all procedures performed on the left ankle INDICATION FOR PROCEDURE: patient is a 33-year-old female with multiple medical problems including diabetes, htn, obesity and ASA 3 [place] and dysfunction associated with her left ankle. She was initially treated nonoperatively with physical therapy and bracing however her symptoms persisted. An MRI was obtained which showed tear of peroneus brevis and intact ATFL however examination revealed positive anterior drawer and her subjective symptoms are consistent with chronic instability. Because of her failure to respond to nonsurgical care we discussed the risks and benefits of surgical intervention and all of her questions were answered to her satisfaction. Patient elected to proceed with the above procedures INTRAOPERATIVE FINDINGS: arthroscopy revealed chronic impingement tissue predominantly in the anterior lateral ankle. No osteochondral defect was noted. There was a tear with associated scar formation and surrounding synovitis of the peroneal brevis at the level of the fibular groove. The longus was intact and the groove was of adequate depth. The anterior talofibular ligament was intact but thickened and scarred consistent with chronic instability. PROCEDURE IN DETAIL: Patient was identified in pre op and consent was reviewed. Correct side and site were identified and marked. Pre-op antibiotics were started. Patient was brought to OR suite and place on table in a supine position. General anesthesia was administered. Tourniquet applied. Operative extremity was prepped and draped in usual sterile fashion. Formal time-out was performed and the foot/ankle were exsanguinated and tourniquet inflated. Ankle Scope: A 15 blade was used to create anterior medial ankle portal followed by use of hemostat and trochar then the arthroscopic camera was inserted. Anterior lateral portal was similarly created in standard safe location after identifying intermediate dorsal cutaneous nerve. All impingement and synovitic tissue was removed using a 3.5 mm aggressive shaver. No cartilage defect was noted. Arthroscopic instrumention was then removed. The portals were then closed with nylon suture. Peroneal tendons: Lateral ankle incision was made over the posterior aspect of the fibular malleolus and extend past the fibular tip. Dissection was then carried posteriorly. Peroneal retinaculum and tendon sheath were incised to expose the peroneal tendons. The peroneal tendons were dislocated from the fibular groove for close inspection. There was synovitis and low lying peroneal brevis muscle which was excised. there was a tear extending from the proximal aspect of the fibular groove to the lateral hindfoot approximately 4 cm. The tear and associated scar and nonviable tendon was aggressively debrided. The brevis was then repaired and tubularized with absorbable suture. The tendons were then relocated in the fibular groove which was of adequate depth. Range of motion of the ankle demonstrated no subluxation and smooth gliding of the peroneal tendons. Lateral Ankle Stabilization: Meticulous blunt dissection was used to expose the ATFL and associated capsular tissue. The ATFL was thickend and lax upon stress examination. The ATFL was incised and arthrotomy was performed. The periosteum off of the distal lateral fibula was elevated from the fibular tip. A rongeur was used on the distal anterior fibular malleolus to create a trough. Drill holes were created in the trough created on distal fibula. Two 3.3 mm suture anchors were inserted into the drill holes created according to manufacture's directions. All sutures in all were passed through the ATFL then passed through the extensor retinaculum. The foot was then held in maximum dorsiflexion and eversion and the sutures were tied. The sutures were then passed through the periosteum of the fibula to reapproximate all capsular and periosteal tissue. The sututres were then tied and cut. Anterior drawer was negative and ankle had good ROM. The surgical site was irrigated with copious amounts sterile saline. The tendon sheath was reapproximated and the superior peroneal retinaculum repaired with a pants over vest absorbable suture. Skin was closed in layers and the tourniquet was deflated with a prompt hyperemic response. A dry sterile dressing consisting of Xeroform on the incisions followed by 4 x 4 gauze, ABDs, and Kerlix were applied. Multiple layers of cast padding were then applied to ensure all bony prominences were well-padded. A plaster posterior splint was then applied which was held in place by Maninder wraps. Capillary refill time to all digits was evaluated and had appropriate response. POSTOPERATIVE PLAN: Discharge home under family's care Post op instructions provided verbally and written prescription(s) were placed in chart NWB operative foot/ankle x1 wks Follow-up in 1 week Implants: Medline 3.3 suture anchors x2 Anesthesia: regional and General-LMA Surgeon: Mark Mayorga Rotary Bar Operator: Maximo Payan Estimated blood loss (mL): 10 Pathology: other (peroneus brevis tendon tear) Condition: stable Disposition: PACU
[2023-04-16 10:11] LABS: Glucometer 113 mg/dL (74-106)
[2023-04-16] MEDS: PROMETHAZINE HCL 25 MG/ML VIAL 12.5 MG IV (10:41)
== END 2023-04-16 12:10 | disposition home or self-care (01) ==
PROVIDERS: Anesthesiology; PCP Nurse Practitioner Family; Visit Provider Podiatrist Foot & Ankle Surgery
PROC: (CPT 1464; principal; 2023-04-16 07:30)
DX: M25.872 Other specified joint disorders, left ankle and foot (principal); M25.372 Other instability, left ankle; S86.312A Strain of muscle(s) and tendon(s) of peroneal muscle group at lower leg level, left leg, initial encounter; M76.72 Peroneal tendinitis, left leg; E11.9 Type 2 diabetes mellitus without complications; E66.9 Obesity, unspecified; I10 Essential (primary) hypertension; F41.9 Anxiety disorder, unspecified; F32.A Depression, unspecified; K21.9 Gastro-esophageal reflux disease without esophagitis; M79.7 Fibromyalgia; Z87.442 Personal history of urinary calculi; Z98.891 History of uterine scar from previous surgery; Z98.890 Other specified postprocedural states; Z90.49 Acquired absence of other specified parts of digestive tract; Z98.51 Tubal ligation status; Z87.891 Personal history of nicotine dependence; Z79.899 Other long term (current) drug therapy; Z68.41 Body mass index [BMI] 40.0-44.9, adult
CPT/HCPCS: 27675; 27698; 29898; 36415; 64445; 82948; 84703; 85025; 88305; C1713; J1094; J1170; J2704

== ENCOUNTER 2023-08-12 19:54 | Outpatient (REF) | payer MEDICAID, SELFPAY ==
[2023-08-18 11:20] LABS: Age Gdln ACOG Testing Note (.); HPV Aptima Negative (Negative); IGP, Aptima HPV, rfx 16/18,45 Note (.)
== END 2023-08-12 19:55 | disposition home or self-care (01) ==
LOC: LAB 19:54
PROVIDERS: PCP Nurse Practitioner Family; Visit Provider Physician Assistant
DX: Z01.419 Encounter for gynecological examination (general) (routine) without abnormal findings (principal)
CPT/HCPCS: 87624; G0145

== ENCOUNTER 2024-01-20 12:52 | Outpatient (OUT) | payer MEDICAID, SELFPAY ==
--- NOTE | 2024-01-20 13:04 | XR_ITS ---
The [address] [address] Patient Name: JOLENE VALENTINO MRN: [id number] date: 1990 Sex: F Assigned Patient Location: [facility] Current Patient Location: RAD Accession/Order Number: [id number] Exam Date: 01/20/2024 13:03 Report Date: 01/24/2024 07:38 At the request of: REGIS VELEZ Procedure: XR ankle LT min 3V PROCEDURE: XR ankle LT min 3V HISTORY: left ankle pain COMPARISON: XR ankle left 01/13/2023 FINDINGS: BONES:There are 2 new rounded lucencies within distal lateral tip of the lateral malleolus. Stable tiny ossification along posterior margin of tibial plafond. Stable chronic small ossification along dorsal margin of the talonavicular joint. SOFT TISSUES:Mild-moderate soft tissue swelling surrounding the ankle. EFFUSION:None visible. OTHER: Negative. XR/XR ankle LT min 3V IMPRESSION: 1. There are 2 new lucencies within the lateral malleolus; bone erosion from lesions versus sequela of surgery since prior study. Correlate with clinical history and consider MRI for further evaluation. Electronically authenticated by: LEILANI ALANIS Date: 01/24/2024 07:38
== END 2024-01-20 12:53 | disposition home or self-care (01) ==
LOC: RAD 12:53
PROVIDERS: PCP Nurse Practitioner Family; Visit Provider Podiatrist Foot & Ankle Surgery
DX: M25.572 Pain in left ankle and joints of left foot (principal); R93.7 Abnormal findings on diagnostic imaging of other parts of musculoskeletal system
CPT/HCPCS: 73610

== ENCOUNTER 2024-02-03 07:41 | Outpatient (OUT) | payer MEDICAID, SELFPAY ==
--- NOTE | 2024-02-03 07:47 | MR_ITS ---
The [address] [address] Patient Name: JOLENE VALENTINO MRN: [id number] date: 1990 Sex: F Assigned Patient Location: MRI Current Patient Location: Accession/Order Number: [id number] Exam Date: 02/03/2024 08:00 Report Date: 02/05/2024 11:36 At the request of: REGIS VELEZ Procedure: MR ankle LT wo con HISTORY: Left ankle pain for over the past 10 months with swelling. Prior surgery on the left ankle. MR ankle LT wo con: 02/03/2024 8:00 AM EST COMPARISON: Radiographs left ankle 01/20/2024 and MRI left ankle 01/27/2023. TECHNIQUE: Multiplanar, multisequence MRI images of the ankle were obtained without contrast. FINDINGS: LIGAMENTS: The anterior talofibular ligament appears grossly intact. The calcaneofibular ligament now appears thickened and of low signal intensity. The posterior talofibular ligament and distal tibiofibular ligaments appear within normal limits. The superior peroneal retinaculum now appears very thin and ill-defined at its expected attachment to the lateral malleolus and there are susceptibility artifacts in this region from prior surgery. The deltoid ligament complex appears within normal limits. TENDONS: The prior MRI there has been development of severe lateral subluxation of the peroneal tendons from the retromalleolar groove. There again appears to be a probable longitudinal split tear of the inframalleolar portion of the peroneus brevis tendon spanning approximately 1.7 cm in length. There is also new moderate tendinopathy of the inframalleolar portion of the peroneus longus tendon. There has been development of a moderate amount of fluid within the peroneal tendon sheath in the retromalleolar and inframalleolar region. The other tendons of the ankle appear grossly within normal limits. SINUS TARSI AND TARSAL TUNNEL: No space-occupying mass is seen in the tarsal tunnel or the sinus tarsi. BONES AND JOINTS: The bone marrow signal intensity is age appropriate. No unstable osteochondral defect of the tibiotalar joint is identified. There are 2 new soft tissue anchors in the anteroinferior and inferior aspect of the lateral malleolus. The soft tissue anchor within the anteroinferior aspect of the lateral malleolus has backed out approximately 3 mm and there is a small amount of edema of the bone marrow adjacent to this anchor. PLANTAR FASCIA: There is no abnormal thickening or abnormal signal intensity of the plantar fascia and there is no surrounding soft tissue edema to suggest plantar fasciitis. SOFT TISSUES: There is a small amount of soft tissue edema along the lateral aspect of the ankle. MR/MR ankle LT wo con IMPRESSION: 1. Since the prior MRI of 01/27/2023 there has been development of a tear of the superior peroneal retinaculum near its attachment to the lateral malleolus. This is associated with development of severe lateral subluxation of the peroneal tendons from the retromalleolar groove. There again appears to be a probable longitudinal split tear of the inframalleolar portion of the peroneus brevis tendon spanning approximately 1.7 cm in length. There is also new moderate tendinopathy of the inframalleolar portion of the peroneus longus tendon and a moderate tenosynovitis of the peroneal tendon sheath. 2. A soft tissue anchor within the anteroinferior aspect of the lateral malleolus has backed out approximately 3 mm. 3. Probable development of postsurgical scarring in the region of the calcaneofibular ligament. Electronically authenticated by: LUZ ROACH Date: 02/05/2024 11:36
--- OUTSIDE RECORDS SUMMARY | 2024-02-03 07:48 | XMS_ITS | CCD ---
Author Organization [facility] Care Team Providers Care Insurance Billing Specialist Name Role Phone Zion, Juanito Unavailable Natalie Blackwell Unavailable Johann Moe Unavailable EASTERWOOD, JUANITO Admitting Unavailable EASTERWOOD, JUANITO Primary Care Unavailable EASTERWOOD, JUANITO Attending Unavailable SOM, BARRINGTON Attending Unavailable EASTERWOOD, JUANITO Primary Care Unavailable AMARI ., AMBROCIO PAULINO Consulting Unavailabl e BARRINGTON KEARNS Admitting Unavailable NATALIE HERNANDEZ Consulting Unavailable ANGELES, BEKA Consulting Unavailable EASTERWOOD, JUANITO Attending Unavailable DUMONT, OLI Primary Care Unavailable EASTERWOOD, JUANITO Admitting Unavailable LISSA ., DR HERNANDEZ Attending Unavailable LISSA ., DR HERNANDEZ Admitting Unavailable DUMONT, OLI Primary Care Unavailable LISSA ., DR HERNANDEZ Consulting Unavailable DUMONT, OLI Consulting Unavailable DUMONT, OLI Attending Unavailable DUMONT, OLI Admitting Unavailable DUMONT, OLI Primary Care Unavailable EASTERWOOD, JUANITO Admitting Unavailable EASTERWOOD, JUANITO Primary Care Unavailable EASTERWOOD, JUANITO Consulting Unavailable EASTERWOOD, JUANITO Attending Unavailable EASTERWOOD, JUANITO Primary Care Unavailable EASTERWOOD, JUANITO Attending Unavailable DR LEILANI ALANIS Consulting Unavailable EASTERWOOD, JUANITO Admitting Unavailable EASTERWOOD, JUANITO Consulting Unavailable Moises Mccabe Unavailable [phone] Neftali Snow Unavailable RUTH ANN Deleon Primary Care Provider MD Johann Moe Attending Provider Uriah Skinner Unavailable Elinor Workman Unavailable RUTH ANN Deleon Primary Care Provider [phone] RUTH ANN Deleon Attending Provider MD Uriah Skinner Attending Provider [phone] MD Karoline Londono Jr Emergency Provider MD Uriah Skinner Attending Provider ROSE Mayorga Attending Provider GAYE Alegria Emergency Provider [phone] Unallocated, [place] Provider Primary Care Provider RUTH ANN Wilkes Emergency Provider ROSE Mayorga Attending Provider RUTH ANN Deleon Primary Care Provider GAYE Alegria Emergency Provider [phone] RUTH ANN Wilkes Emergency Provider [phone] RUTH ANN Deleon Attending Provider [facility] RIAZ, Juanito Unavailable [phone] JUDE APONTE Attending Unavailable MELISSA DORSEY Attending Unavailable MOON OLEA Attending Unavailable RUTH ANN Deleon Primary Care Provider [phone] MD Karoline Londono Jr Emergency Provider JUANITO DELEON Primary Care Physician RUTH ANN Deleon Primary Care Provider RIAZ DELEONA Admitting Unavailable EASTERWOOD, RIAZ SOLOMON Attending Unavailable Wesly Lopez Attending Unavailable EASTERWOOD, PROFESSIONAL PROGRAMMER ANALYST JUANITO Attending Unavailable EASTERMEL, RIAZ SOLOMON Admitting Unavailable RUTH ANN Deleon Attending Provider [phone] Karoline Londono Jr Admitting Unavailable Karoline Londono Jr Attending Unavailable Juanito Deleon Primary Care Unavailable Mark Mayorga Admitting Unavailable Mark Mayorga Attending Unavailable EastJuanito coelho Admitting Unavailable Easterwood, Juanito Payton Attending Unavailable Easterwood, Juanito Payton Primary Care Unavailable Easterwood, Juanito J Admitting Unavailable Easterwood, Juanito J Attending Unavailable Easterwood, Juanito J Primary Care Unavailable Easterwood, Juanito J Admitting Unavailable Easterwood, Juanito J Attending Unavailable Easterwood, Juanito J Primary Care Unavailable Uriah Skinner Admitting Unavailable Uriah Skinner Attending Unavailable Easterwood, Juanito Payton Primary Care Unavailable Markie Alegria Admitting Unavailable Markie Alegria Attending Unavailable Eastritikawood, Juanito Payton Primary Care Unavailable JqauelineeNimisha Admitting Unavailable Nimisha Wilkes N Attending Unavailable Zion, Juanito Payton Primary Care Unavailable Karoline Londono Jr Admitting Unavailable Karoline Londono Jr Attending Unavailable Easterwood, Juanito Payton Primary Care Unavailable Allergies Allergy Classification Reported Allergen(s) Allergy Type Date of Onset Reaction(s) Facility Acetaminophen (2 sources) Acetaminophen Drug Allergy 4 itching and [facility] busPIRone (2 sources) [facility] Cephalosporins (antibiotic) (2 sources) Cephalexin Drug Allergy 4 [facility] Opioid Agonists (2 sources) HYDROcodone Drug Allergy 4 Itching, itching and [facility] (20 sources) Acetaminophen / HYDROcodone; Translations: [Vicodin] Drug Allergy 6 itching and hives, rash [facility] Rep[facility] (20 sources) busPIRone Drug Allergy 2 [facility] Other (20 sources) Cephalexin Drug Allergy 3 [facility] (1 source) Cephalexin Drug Allergy 2 [facility] (14 sources) HYDROcodone; Translations: [hydrocodone] Drug Allergy 9 Itching, Itching, itching and hives [facility] (11 sources) Acetaminophen; Translations: [acetaminophen] Drug Allergy 4 itching and [facility] (11 sources) busPIRone; Translations: [buspirone] Drug Allergy 4 [facility] (5 sources) Acetaminophen / HYDROcodone; Translations: [HYDROCODONE-ACET AMINOPHEN] Drug Allergy 6 Itching [facility] (1 source) Cephalexin Drug Allergy 4 [facility] Rep[facility] (1 source) DULoxetine Drug Allergy 4 [facility] Medications Current Medications Medication Drug Class(es) Dates Sig (Normalized) Sig (Original) 0.5 ML tirzepatide 5 MG/ML Auto-Injector [Mounjaro] (2 sources) Start: 08-12-2022 inject 2.5 mg by subcutaneous injection every week Mounjaro 2.5 MG/0.5ML 2.5mg Subcutaneous weekly for 30 days July, Active amLODIPine 10 mg oral tablet (20 sources) Dihydropyridine Calcium Channel Frederic Start: 11-03-2023 take 5 mg by mouth once daily Amlodipine Active 10 MG PO Daily 90 90 November 03, 2023 3:44pm *Double 5mg daily x 4 weeks as of 11/02/23* Start: 07-28-2022 End: 11-03-2023 take 1 tablet by mouth once daily Amlodipine Discontinued 5 MG PO Daily May 11, 2023 1:00am August 19, 2023 4:00pm FreeTextSi tablet Orally Once a day; Note: Source Status: Refill; Refills: 1; Qty: 90 Tablet; Provider: Zion Payton Start: 06-23-2021 take 1 tablet by wing once daily amLODIPine (NORVASC) 2.5 mg tablet Take 1 tablet by mouth once daily. 0 06/23/2021 Active take 2 tablets by mo ut once daily amLODIPine Besylate 2.5 MG 2 tabs Orally Once a day for 30 days *INCREASETO 2 tabs daily=5mg* Active amoxicillin 500 mg oral capsule (1 [...] 12 hrs for 7 days Apr, Active ergocalciferol 1.25 mg oral capsule (8 sources) Provitamin D2 Compound Start: 07-14-2023 take 1250 ug by mouth every week Ergocalciferol (Vitamin D2) Active 1250 MCG PO every week July 14, 2023 12:00am hydroCHLOROthiazide 25 mg oral tablet (2 sources) Thiazide Diuretic take 1 tablet by mouth once daily hydrochlorothiazide (HYDRODIURIL, ESIDRIX) 25 mg tablet Take 25 mg by mouth once daily. 0 Active hydrocortisone 5 mg/ml topical cream (15 sources) Corticosteroid Start: 05-11-2023 Hydrocortisone Active 1 APPLIC TOPICAL Twice daily May 11, 2023 1:00am Start: 02-23-2023 Hydrocortisone 0.5 % lotn Twice daily 0 02/23/2023 Active Start: 02-23-2023 Hydrocortisone 0.5 % 1 application Externally Twice a day for 14 days Jan, Active Start: 02-23-2023 Hydrocortisone 0.5 % 1 application Externally Twice a day for 14 days Jan, Active meloxicam 15 mg oral tablet (2 sources) Nonsteroidal Anti-inflammatory Drug Start: 01-13-2023 meloxicam (Mobic) 15 MG tablet 1 (one) time each day at the same time 0 01/13/2023 Active naproxen 500 mg oral tablet (6 sources) Nonsteroidal Anti-inflammatory Drug Start: 01-28-2010 take 1 tablet by mouth twice daily as needed for pain Naprosyn 500 mg Tab 500 mg = 1 tab(s), Oral, BID, PRN for pain, # 20 tab(s), Refills(s) 0 Start Date: 07/05/15 Status: Ordered omeprazole 40 mg delayed release oral capsule (20 sources) Proton Pump Inhibitor Start: 05-11-2023 take 1 capsule by mouth once daily Omeprazole Active 40 MG PO Daily May 11, 2023 1:00am FreeTextSi capsule 30 minutes before morning meal Orally Once a day; Note: Source Status: Taking; Refills: 0; Qty: 90 capsules; Provider: Zion Payton Start: 02-14-2022 take 1 capsule by mo [facility] once daily Omeprazole 40 MG 1 capsule 30 minutes before morning meal Orally Once a day for 90 days Jan, Active Start: 02-14-2022 End: 05-11-2023 take 20 mg by mouth once daily Omeprazole Discontinued 20 MG PO Daily July 28, 2022 12:00am May 11, 2023 6:39pm Start: 09-17-2021 [facility] Omeprazole 10 MG 1 capsule Orally Once a day for 30 day(s) Aug, Active ondansetron 8 mg oral tablet (16 sources) Serotonin-3 Receptor Antagonist Start: 05-12-2023 End: 10-03-2023 take 8 mg by mouth every eight hours Ondansetron Hcl Active 8 MG PO Every 8 hours October 03, 2023 12:00am phentermine hydrochloride 37.5 mg oral tablet (11 sources) Sympathomimetic Amine Anorectic Start: 05-01-2022 take 1 tablet by mouth once daily Phentermine HCl 37.5 MG 1 tablet Orally Once a day for 30 days Apr, Active Start: 02-13-2022 take 1 capsule [facility] every twenty-four hours Phentermine HCl 37.5 MG 1 capsule Orally Once a day for 30 days Jan, Active predniSONE 20 mg oral tablet (3 sources) Start: 01-22-2022 take 1 tablet by mouth every twelve hours predniSONE 20 MG 1 tablet Orally 2 times a day for 5 day(s) Dec, Active tiZANidine 2 mg oral tablet (2 sources) Central alpha-2 Adrenergic Agonist take 1 tablet by mouth every eight hours for muscle spasms tiZANidine (Zanaflex) 2 MG tablet 1 tablet Oral Every 8 hrs for muscle spasms for 7 days 0 Active 24 hr venlafaxine 75 mg extended release oral capsule (20 sources) Serotonin and Norepinephrine Reuptake Inhibitor take 1 capsule by mouth every twenty-four hours Venlafaxine HCl ER 75 MG 1 capsule with food Orally Once a day for 90 days Active take 1 capsule by mo ut every twenty-four hours Venlafaxine HCl ER 37.5 MG 1 capsule wit h food Orally Once a day Active Completed/Discontinued Medications Medication Drug Class(es) Dates Sig (Normalized) Sig (Original) acetaminophen 325 mg / oxyCODONE hydrochloride 5 mg oral tablet (20 sources) Opioid Agonist Start: 04-29-2023 End: 05-12-2023 take 1 tablet by mouth every six hours Oxycodone-Acetamin ophen (Percocet) 5-325 mg tablet Discontinued 1 TAB PO Q6H 10 May 07, 2023 May 12, 2023 12:12pm amoxicillin 875 mg / clavulanate 125 mg oral tablet (20 sources) Penicillin-class Antibacterial Start: 06-04-2023 End: 07-14-2023 take 1 tablet by mouth twice daily Amoxicillin-Pot Clavulanate Discontinued 1 TAB PO Twice daily 20 June 04, 2023 1:00am July 14, 2023 8:16am Start: 05-07-2023 End: 05-12-2023 take 1 tablet by mouth every twelve hours Amoxicillin-Pot Clavulanate Discontinued 1 TAB PO Q12H May 07, 2023 1:00am May 12, 2023 12:10pm Start: 05-05-2023 End: 05-15-2023 take 1 tablet by mouth in the morning amoxicillin-clavulanate (Augmentin) 875-125 MG tablet Indications: Acute diffuse otitis externa of left ear Take 1 tablet (875 mg) by mouth in the morning and 1 tablet (875 mg) before bedtime. Do all this for 10 days. 20 tablet 0 05/05/2023 05/15/2023 Active cefTRIAXone (20 sources) Cephalosporin Antibacterial Start: 01-21-2010 Rocephin 500 mg Dec, 500MG/2ML Ciprofloxacin / Dexamethasone (14 sources) Corticosteroid, Quinolone Antimicrobial Start: 05-07-2023 End: 05-12-2023 Ciprofloxacin-Dexamet hasone Discontinued 4 DROPS EAR-LEFT Q12H May 07, 2023 1:00am May 12, 2023 12:10pm Start: 05-07-2023 End: 05-12-2023 Ciprofloxacin-Dexamethasone Discontinued 4 DROPS EAR-LEFT Q12H May 07, 2023 12:00am May 12, 2023 11:10am Start: 05-07-2023 Ciprofloxacin- Dexamethasone Active 4 DROPS EAR-LEFT Q12H May 07, 2023 12:00am Start: 05-05-2023 End: 05-12-2023 ciprofloxacin-dexAMETHasone (CiproDEX) otic suspension Indications: Acute diffuse otitis externa of left ear Administer 4 drops into affected ear(s) in the morning and 4 drops before bedtime. Do all this for 7 days. 7.5 mL 0 05/05/2023 05/12/2023 Active cyclobenzaprine hydrochloride 10 mg oral tablet (20 sources) Muscle Relaxant Start: 10-14-2021 End: 08-20-2023 take 1 tablet by mouth once daily at bedtime Cyclobenzaprine Discontinued 10 MG PO Daily at bedtime May 11, 2023 1:00am August 20, 2023 4:10pm FreeTextSi tablet at bedtime as needed Orally Once a day; Note: Source Status: Taking; Refills: 2; Provider: Zion Payton diflunisal 500 mg oral tablet (6 sources) Nonsteroidal Anti-inflammatory Drug Start: 12-02-2023 End: 12-02-2023 take 500 mg by mouth once daily Diflunisal Discontinued 500 MG PO Daily December 02, 2023 9:30am December 02, 2023 9:33am Start: 11-02-2023 End: 12-02-2023 Diflunisal Discontinued MG P O November 02, 2023 12:00am December 02, 2023 9:30am Start: 10-23-2023 take 1 tablet by wing th every twelve hours as needed for pain diflunisal 500 mg Tab 500 mg = 1 tab(s), Oral, q12hr, PRN Pain, # 30 tab(s), Refills(s) 0, Pharmacy: [id number], 152, cm, 10/23/23 22:39:00 EDT, Height/Length Dosing, 111.2, kg, 10/23/23 22:39:00 EDT, Weight Dosing Start Date: 10/23/23 Status: Ordered DULoxetine 60 mg delayed release oral capsule (20 sources) Serotonin and Norepinephrine Reuptake Inhibitor Start: 07-14-2023 End: 12-02-2023 take 60 mg by mouth once daily Duloxetine Discontinued 60 MG PO Daily 90 90 August 26, 2023 10:55am December 02, 2023 9:33am Start: 06-23-2022 End: 05-11-2023 take 30 mg by mouth once daily Duloxetine Discontinued 30 MG PO Daily July 28, 2022 12:00am May 11, 2023 6:38pm Start: 06-23-2022 End: 07-14-2023 take 1 capsule by mouth once daily Duloxetine Discontinued 40 MG PO Daily May 11, 2023 1:00am July 14, 2023 8:40am FreeTextSi capsule Orally Once a day; Note: Source Status: Taking; Refills: 3; Qty: 90 Capsule; Provider: Zion Payton fluticasone propionate 0.05 mg/actuat metered dose nasal spray (20 sources) Corticosteroid Start: 07-28-2022 End: 05-07-2023 Fluticasone Propionate Discontinued 1 SPRAY INTRANASAL Daily July 28, 2022 12:00am May 07, 2023 8:35pm Start: 01-22-2022 take 2 spray(s) nasa l route once daily Fluticasone Propionate 50 MCG/ACT 2 sprays Nasally Once a day for 14 day(s) Dec, Not-Taking hydroCHLOROthiazide 12.5 mg / lisinopril 20 mg oral tablet (20 sources) Thiazide Diuretic, Angiotensin Converting Enzyme Inhibitor Start: 07-28-2022 End: 05-21-2023 take 2 tablets by mouth once daily Lisinopril-Hydrochlorothiazide Discontinued 2 TAB PO Daily May 11, 2023 1:00am May 21, 2023 3:17pm FreeTextSi tablet Orally Once a day; Note: Source Status: Taking; Provider: Zion Payton [facility] daily Lisinopril-hydroCHLOROthiazide 20-12.5 M G 2 tablet Orally Once a day Active take [address] ut every twenty-four hours Insulin [place] (Disposable) (20 sources) Start: 05-11-2023 End: 05-12-2023 Insulin [place] (Disposable) Discontinued 0 .Route May 11, 2023 6:51pm May 12, 2023 12:54pm 30G X 5 MM Start: 05-11-2023 End: 05-12-2023 Insulin [place] (Disposable) Discontinued 0 .Route May 11, 2023 5:51pm May 12, 2023 11:54am 30G X 5 MM Start: 05-11-2023 Insulin Needle s (Disposable) Active 0 .Route May 11, 2023 5:51pm 30G X 5 MM Start: 05-11-2023 End: 05-11-2023 Insulin [place] (Disposable) Discontinued 0 .Route May 11, 2023 1:00am May 11, 2023 6:52pm As directed Start: 05-11-2023 End: 05-11-2023 Insulin [place] (Disposable) Discontinued 0 .Route May 11, 2023 12:00am May 11, 2023 5:52pm As directed levoFLOXacin 750 mg oral tablet (12 sources) Quinolone Antimicrobial Start: 05-07-2023 End: 06-04-2023 take 750 mg by mouth once daily Levofloxacin Discontinued 750 MG PO Daily 01 06May 07, 2023 1:00am June 04, 2023 1:27pm 3 ml liraglutide 6 mg/ml pen injector (18 sources) GLP-1 Receptor Agonist Start: 05-11-2023 End: 06-04-2023 Liraglutide (Victoza 2-Lele) 0.6 mg/0.1 mL (18 mg/3 mL) pen injector Discontinued 1.8 MG SUBCUT Daily May 11, 2023 1:00am June 04, 2023 12:51pm FreeTextSi.8 mg Subcutaneous daily; Note: Source Status: Refill; Refills: 1; Qty: 3 pack; Provider: Susanne Mehta Start: 01-06-2023 inject 0.6 mg by sub cutaneous injection once daily, then inject 0.6 mg [...] hydrochloride 500 mg extended release oral tablet (20 sources) Biguanide Start: 05-11-2023 End: 05-12-2023 take 1 tablet by mouth once daily at breakfast Metformin Discontinued 500 MG PO Daily May 11, 2023 1:00am May 12, 2023 12:11pm FreeTextSi tablet with breakfast Orally Once a day; Note: Source Status: Refill; Refills: 1; Provider: Susanne Mehta Start: 10-14-2022 take 1 tablet by wing th every twenty-four hours metFORMIN HCl ER 500 MG 1 tablet with breakfast Orally Once a day for 30 day(s) Sep, Active metroNIDAZOLE 500 mg oral tablet (12 sources) Nitroimidazole Antimicrobial Start: 05-07-2023 End: 06-04-2023 take 500 mg by mouth four times daily Metronidazole Discontinued 500 MG PO Four times daily 40 May 07, 2023 1:00am June 04, 2023 1:27pm mupirocin 0.02 mg/mg topical ointment (16 sources) RNA Synthetase Inhibitor Antibacterial Start: 07-07-2018 End: 07-28-2022 Mupirocin Discontinued 1 APPLIC TOPICAL Twice daily July 07, 2018 12:00am July 28, 2022 1:33pm sulfamethoxazole 800 mg / trimethoprim 160 mg oral tablet (16 sources) Dihydrofolate Reductase Inhibitor Antibacterial, Sulfonamide Antimicrobial Start: 07-07-2018 End: 07-28-2022 take 1 tablet by mouth twice daily Sulfamethoxazole-T rimethoprim (Bactrim Ds) 800-160 mg tablet Discontinued 1 TAB PO Twice daily July 07, 2018 12:00am July 28, 2022 1:33pm Problems Active Problems Problem Classification Problem Date Documented Da te Episodic/Chronic Abdominal pain (20 sources) Upper abdominal pain; Translations: [Upper abdominal pain, unspecified] Onset: 2 Resolved: 2 Episodic Anxiety disorders (20 sources) Anxiety; Translations: [Anxiety disorder, unspecified] Onset: 2 Resolved: 2 Chronic Coma; stupor; and brain damage (20 sources) Daytime somnolence; Translations: [Somnolence] Onset: 2 Resolved: 2 Episodic Complications of surgical procedures or medical care (1 source) Complication of procedure; Translations: [Unspecified complication of procedure, initial encounter] Onset: 4 Episodic Diabetes mellitus without complication (6 sources) Prediabetes; Translations: [Prediabetes] 10-08-2023 Episodic Diseases of mouth; excluding dental (20 [...] unspecified, not intractable, without status migrainosus] Chronic Headache; including migraine (2 sources) Headache; Translations: [Daily headache] 11-02-2023 Episodic Headache; including migraine (1 source) Headache; including migraine; Translations: [Headache, unspecified] Onset: 4 Immunizations and screening for infectious disease (20 sources) Contact with and (suspected) exposure to other viral communicable diseases; Translations: [Encounter for screening for human papillomavirus (HPV)] Onset: 2 Episodic Malaise and fatigue (20 sources) Fatigue; Translations: [Chronic fatigue, unspecified] Onset: 2 Resolved: 2 Chronic Malaise and fatigue (1 source) Other fatigue; Translations: [OTHER FATIGUE] Onset: 3 Episodic Menstrual disorders (3 sources) Amenorrhea, unspecified; Translations: [Absence of menstruation] 11-02-2023 Chronic Miscellaneous mental health disorders (20 sources) Psychophysiologic insomnia; Translations: [Psychophysiologic insomnia] 05-11-2023 Chronic Mood disorders (20 sources) Depressive disorder; Translations: [Depression, unspecified depression type] Chronic Mood disorders (6 sources) Mood disorders; Translations: [Depression, unspecified] Onset: 2 Resolved: 2 Nausea and vomiting (15 sources) Nausea; Translations: [Nausea] 05-12-2023 Episodic Nonspecific chest pain (6 sources) Non-cardiac chest pain; Translations: [Other chest pain] Onset: 4 10-03-2023 Episodic Nutritional deficiencies (17 sources) Vitamin D deficiency; Translations: [Vitamin D deficiency, unspecified] 07-14-2023 Chronic Other aftercare (1 source) Other penitentiary (current) drug therapy; Translations: [OTH HISTORY PROFESSOR CURRENT DRUG THERAPY] Onset: 3 Episodic Other aftercare (1 source) Encounter for follow-up examination after completed treatment for conditions other than malignant neoplasm Episodic Other connective tissue disease (20 sources) Fibromyalgia; Translations: [Fibromyalgia] 05-11-2023 Episodic Other ear and sense organ disorders (11 sources) Otitis externa; Translations: [Unspecified otitis externa, unspecified ear] 05-12-2023 Chronic Other ear and sense organ disorders (4 sources) Unspecified otitis externa, unspecified ear; Translations: [Infective otitis externa, unspecified] 05-12-2023 Chronic Other ear and sense organ disorders (20 sources) Otalgia; Translations: [Otalgia, unspecified] Episodic Other ear and sense organ disorders (2 sources) Acute otitis externa; Translations: [Diffuse otitis externa, left ear] 05-05-2023 Episodic Other eye disorders (20 sources) Subconjunctival [...] [Fatty (change of) liver, not elsewhere classified] 05-11-2023 Chronic Other liver diseases (5 sources) Fatty [...] 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] Onset: 2 05-11-2023 Chronic Other nervous system disorders (5 sources) Paresthesia of skin; Translations: [PARESTHESIA OF SKIN] Onset: 3 Episodic Other nervous system disorders (20 sources) Sensory symptoms; Translations: [Paresthesia of skin] 05-11-2023 Episodic Other nervous system disorders (10 sources) H/O: musculoskeletal disease; Translations: [Personal history of other diseases of the nervous system and sense organs] 05-13-2023 Episodic Other nervous system disorders (1 source) History of otitis media; Translations: [Personal history of other diseases of the nervous system and sense organs] 07-23-2023 Episodic Other nervous system disorders (1 source) H/O: ear disorder; Translations: [Personal history of other diseases of the nervous system and sense organs] 07-23-2023 Episodic Other nervous system disorders (2 sources) H/O: migraine 01-17-2010 Episodic Other non-traumatic joint disorders (2 sources) Knee pain 06-10-2013 Episodic Other nutritional; endocrine; and metabolic disorders (20 sources) Body mass index 40+ - severely obese; Translations: [Body mass index (BMI) 40.0-44.9, adult] Chronic Other nutritional; endocrine; and metabolic disorders (20 sources) Obesity; Translations: [Obesity, unspecified] 05-11-2023 Chronic Other nutritional; endocrine; and metabolic disorders (3 sources) Obesity, unspecified; Translations: [Obesity, unspecified] Onset: 2 Resolved: 2 Chronic Other nutritional; [...] Onset: 3 Episodic Other upper respiratory infections (7 sources) Acute upper respiratory infection, unspecified; Translations: [Streptococcal pharyngitis] Onset: 2 Episodic Otitis media and related conditions (20 sources) Acute mastoiditis; Translations: [Acute mastoiditis without complications, unspecified ear] Onset: 4 05-07-2023 Episodic Residual codes; unclassified (20 sources) Disturbance in sleep behavior; Translations: [Sleep disorder, unspecified] Episodic Residual codes; unclassified (2 sources) Flushing; Translations: [Flushing] 11-02-2023 Episodic Screening and history of mental health and substance abuse codes (1 source) Personal history of nicotine dependence; Translations: [PERSONAL HISTORY OF NICOTINE DEPEND] Onset: 3 Episodic Spondylosis; intervertebral disc disorders; other back problems (20 sources) Low back pain; Translations: [Low back pain] 05-11-2023 Episodic Substance-related disorders (2 sources) Smoker 07-05-2015 Chronic Comment on above: Added secondary to d ocumentation in Social History. Substance-related disorders (14 sources) Cannabis intoxication; Translations: [Cannabis use, unspecified with [...] [CONTACT W/AND (SUSP) EXPOS COVID-19] Onset: 2 Urinary tract infections (20 sources) Urinary tract infectious disease; Translations: [UTI [Urinary tract infection]] Onset: 3 Episodic Viral infection (1 source) Viral infection, unspecified Episodic Past or Other Problems Problem Classification Problem Date Documented Date Episodic/Chronic Administrative/social admission (1 source) Dietary counseling and surveillance; Translations: [Dietary counseling and surveillance] Onset: 02-17-2023 Episodic Contraceptive and procreative management (2 sources) Contraception status; Translations: [Encounter for other contraceptive management] Onset: 07-11-2015 07-11-2015 Episodic Other aftercare (2 sources) Encounter for therapeutic drug level monitoring; Translations: [Encounter for therapeutic drug level monitoring] Onset: 02-17-2023 Episodic Other connective tissue disease (1 source) Fibromyalgia Onset: 09-17-2021 Resolved: 09-17-2021 Episodic Other and delivery including normal (4 sources) Vaginal delivery; Translations: [Encounter for full-term uncomplicated delivery] Onset: 07-25-2010 Resolved: 07-11-2015 07-11-2015 Episodic Other screening for suspected conditions (not mental disorders or infectious disease) (4 sources) Encounter for screening for malignant neoplasm of cervix; Translations: [ENC SCREENING MALIG NEOPLASM CERV] Onset: 07-10-2021 Episodic Ovarian cyst (2 sources) Cyst of right ovary; Translations: [Unspecified ovarian cyst, right side] Onset: 07-25-2010 Resolved: 07-11-2015 07-11-2015 Episodic Residual codes; unclassified (1 source) Sleep disorder, unspecified Onset: 09-17-2021 Resolved: 09-17-2021 Episodic Residual codes; unclassified (1 source) Altered mental status, unspecified; Translations: [Altered mental status, unspecified] Onset: 03-27-2023 Episodic Unclassified (20 sources) care; Translations: [Supervision of other normal ] Unclassified (20 sources) Routine follow-up; Translations: [Routine follow-up] Unclassified (20 sources) Contraception care management; Translations: [Contraceptive management] Unclassified (20 sources) Gynecological examination normal; Translations: [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 Attending Dr: Juanito Deleon APRN Ordering Provider: Juanito Deleon APRN Date of Service: 11/20/23 US/US renal BI: I10 - Essential (primary) hypertension Copies to: Juanito Deleon APRN BILATERAL RENAL AND BLADDER ULTRASOUND CLINICAL HISTORY: Uncontrolled hypertension. COMPARISON: None FINDINGS: Estimation of renal size is approximately 10.14 cm on the right and 11.77 cm on the left. No contour deforming mass, shadowing stone or hydronephrosis. The urinary bladder is partially distended with a volume of 41.87 ml. No shadowing stone or focal lesion. No significant postvoid residual. US/US renal BI IMPRESSION: No acute findings. Impression dictated by: Jeet Pascual Jr., D.O.11/20/2023 10:28 AM Dictation Location: [place] [address] Tech: Bonita Rico Transcribed By: MOODY 11/20/23 1028 Dictated By: Jeet Pascual Jr, DO 11/20/23 1028 Signed By: 11/20/23 1028 Normal [facility] US renal doppleron 4 US renal doppler [facility] [place] [address] Ultrasound Report Signed Patient: Lisandra Solis MR#: [id number] [birth year] : 1990 Acct:[id number] Age/Sex: 33 / F ADM Date: 11/20/23 Loc: Room: Type: [facility] Attending Dr: Juanito Deleon APRN Ordering Provider: Juanito Deleon APRN Date of Service: 11/20/23 US/US renal doppler: I10 Copies to: Juanito Deleon APRN Bilateral renal artery duplex examination Indication for study: Hypertension PROCEDURE: The infrarenal aorta is 15 mm in diameter with a peak systolic velocity of 65 cm/s. Celiac artery is patent with a velocity of 168 cm/s. Mesenteric artery is patent with a velocity of 190 cm/s. The right kidney is 10.6 cm in height with a cortical thickness of 11 mm. Velocities across the right renal artery are normal in range from a low of 56 to a high of 115 cm/s. Left kidney is 11.3 cm in height with a cortical thickness of 15 millimeters. Velocities across the left renal artery are normal in range from a low of 62 298 cm/s. US/US renal doppler IMPRESSION: No significant renal artery stenosis is noted. Impression dictated by: Raghav Resendez M.D.11/20/2023 10:28 AM Dictation Location: [place] [address] Tech: Namrata Toscano Transcribed By: MOODY 11/20/23 1028 Dictated By: Raghav Resendez MD 11/20/23 1025 Signed By: 11/20/23 1028 Normal [facility] B hCG Qualon 11-02-2023 Beta HCG ( test) Ql Negative Normal [facility] Comment on above: Performed By: #### 2 [id number] #### [facility] [address] [place] [address] Beta-human chorionic gonadot ropin (BhCG) detectionon 11-02-2023 HCG.beta subunit Ql (Unsp spec) 1 mIU/mL 1-3 [facility] BhCG Quanton 11-02-2023 HCG.beta subunit Qn 1 m[IU]/mL Normal 1-3 [facility] Comment on above: Result Comment: 'F N ON < 1 - 3' ' 0.2 - 1 WEEK = 5 TO 50' ' 1 - 2 WEEKS = 50 - 500' ' 2 - 3 WEEKS = 100 - 5000' ' 3 - 4 WEEKS = 500 - 14878' ' 4 - 5 WEEKS = 1000 - 36588' ' 5 - 6 WEEKS = 52326 - 564098' ' 6 - 8 WEEKS = 62134 - 469332' ' 8 - 12 WEEKS = 98224 - 446370' Performed By: #### 2 [id number] #### [facility] [address] [place] [address] CHEMISTRYOrdered By: SYSTEM SYSTEM on 11-02-2023 HCG.beta subunit Qn 1 m[IU]/mL Normal 1 - 3 mIU/mL [facility] Comment on above: Result Comment: 'F N ON < 1 - 3' ' 0.2 - 1 WEEK = 5 TO 50' ' 1 - 2 WEEKS = 50 - 500' ' 2 - 3 WEEKS = 100 - 5000' ' 3 - 4 WEEKS = 500 - 56426' ' 4 - 5 WEEKS = 1000 - 52533' ' 5 - 6 WEEKS = 20302 - 960446' ' 6 - 8 WEEKS = 82489 - 552702' ' 8 - 12 WEEKS = 84727 - 435029' No Panel Informationon 11-01 Human Chorionic Gonadotropin, Qual Negative [facility] SEROLOGYOrdered By: Maggi Conroy on 11-02-2023 Beta HCG ( test) Ql Negative (11/02/23 3:27 PM) Normal [facility] XR Ankle 3+ Views Lefton XR Ankle 3+ Views Left Exam Date/Time: 10/23/2023 22:59 EDT Reason for Exam: Pain Report PLEASE SEE XR Foot 3+ Views Left REPORT DATED: 10/23/2023. Ordering Provider: Alyx De La Vega FINAL REPORT Dictated: 10/24/2023 11:24 am Luís Mancini MD Signed (Electronic Signature): 10/24/2023 11:24 am Signed by: Luís Mancini MD Transcribed by: WILLY Technologist: LUIS Technical Comments Radiation Dose: Ka,r in mGy = n/a DAP = n/a [facility] XR Foot 3+ Views Lefton 09-28 XR Foot 3+ Views Left Exam Date/Time: 10/23/2023 22:59 EDT Reason for Exam: Pain, Non Traumatic Report IMPRESSION: SOFT TISSUE SWELLING, PREDOMINANTLY ABOUT THE ANKLE. NO ACUTE FRACTURE OR ACUTE OSSEOUS PROCESS IDENTIFIED. EXAM: XR Foot 3+ Views Left, XR Ankle 3+ Views Left DATE: 10/23/2023 10:49 PM CLINICAL HISTORY: Pain, Non Traumatic. COMPARISON: Left foot 07/05/2015 TECHNIQUE: AP, lateral, and oblique radiographs of the left foot, and AP, mediolateral, internal and external oblique radiographs of the left ankle were obtained. FINDINGS: Soft tissue swelling is noted, predominantly of the ankle. An osteotomy is present within the inferior lateral malleolus from the patient's reported surgery. There is no acute fracture, dislocation, worrisome bone destruction, radiodense foreign bodies, or significant degenerative changes. The visualized joint spaces and ankle mortise are intact. Ordering Provider: Alyx De La Vega FINAL REPORT Dictated: 10/24/2023 11:24 am Luís Mancini MD Signed (Electronic Signature): 10/24/2023 11:24 am Signed by: Luís Mancini MD Transcribed by: WILLY Technologist: LUIS Technical Comments Radiation Dose: Ka,r in mGy = n/a DAP = n/a [facility] ED Clinical Summaryon 2023 ED Clinical Summary ED Clinical Summary [address] [address] ED Clinical Summary Person Information Name: LISANDRA SOLIS/[place] Age: 33 Years : 1990 Sex: Female Language: Georgian PCP: JUANITO DELEON CNP Marital Status: Single Visit Id: Visit Reason: Leg pain-swelling; Ankle pain-swelling; ANKLE PAIN/SWELLING Speciality: Acuity: 4 Enc Type: Emergency Med Service: Emergency Arrival: 10/23/2023 22:24:58 Discharge: 10/23/2023 23:40:25 LOS: 000 01:16 Checkin: 10/23/2023 22:24:58 Checkout: 10/23/2023 23:40:25 Dispo Type: Home (Routine DC) EVENTS: Event Name Event Status Request Date/Time Start Date/Time Complete Date/Time Arrive Complete 10/23/2023 22:24:58 10/23/2023 22:24:58 10/23/2023 22:24:58 Document Home Meds Request 10/23/2023 22:24:58 Triage Complete 10/23/2023 22:24:58 10/23/2023 22:39:46 10/23/2023 22:39:46 Registration Complete 10/23/2023 22:30:57 10/23/2023 22:30:57 10/23/2023 22:30:57 Reg Complete Request 10/23/2023 22:30:57 Reg Bed Request Complete 10/23/2023 22:30:57 10/23/2023 22:30:57 10/23/2023 22:30:57 Bed Assign Complete 10/23/2023 22:32:49 10/23/2023 22:32:49 10/23/2023 22:32:49 Dr Exam Complete 10/23/2023 22:32:49 10/23/2023 22:33:33 10/23/2023 22:33:33 RN Exam Complete 10/23/2023 22:32:49 10/23/2023 23:01:32 10/23/2023 23:01:32 Registration Complete 10/23/2023 22:33:33 10/23/2023 23:27:30 10/23/2023 23:27:30 Dr Exam Complete 10/23/2023 22:35:22 10/23/2023 22:35:22 10/23/2023 22:35:22 X-Ray Complete 10/23/2023 22:44:01 10/23/2023 22:49:58 10/23/2023 22:59:20 Wet Read Request 10/23/2023 22:59:20 Meds Admin Complete 10/23/2023 23:22:13 10/23/2023 23:37:46 Discharge Complete 10/23/2023 23:29:05 10/23/2023 23:40:30 10/23/2023 23:40:30 Transfer Complete 10/23/2023 23:40:30 10/23/2023 23:40:30 10/23/2023 23:40:30 ADDRESS: [address] [place] [address] [address] [place] [phone] PHYS DOC NOTES: MEDICAL INFORMATION: Prescriptions Given: New [facility] [employer] [address] [address], [address] [place], [place] [id number], [phone] diflunisal (diflunisal 500 mg Tab) 1 Tablets By Mouth every 12 hours as needed Pain. Refills: 0. Medications to Continue with No Changes Other Medications naproxen (Naprosyn 500 mg oral tablet) 1 Tablets By Mouth 2 times a day. naproxen (Naprosyn 500 mg Tab) 1 Tablets By Mouth 2 times a day as needed for pain. Refills: 0. PATIENT EDUCATION INFORMATION: Instructions: Ankle Sprain, [id number] Follow up: With: Address: When: Call to schedule a follow-up appointment with your orthopedic surgeon for further management of care. Use the diflunisal as needed for pain. Do not use ibuprofen or naproxen with this as they are in the same family class. Return to the ED with any wors In 3 days 10/26/2023 With: Address: When: JUANITO DELEON [facility] [place] [phone] [employer] (1) In 3 days DIAGNOSIS: Post-operative complication Normal [facility] ED Note-Physicianon 10-23-19 ED Note-Physician ED Note-Physician Basic Information Time Seen: Yolette HUIZAR, Alyx Mehta. 10/23/2023 22:33 Chief Complaint pt to ED with c/o L ankle pain and swelling that radiates up leg. states surgery to ankle a few months ago. denies new injury. MSPs intact, ambulatory into ED. History of Present Illness Patient is a 33-year-old female 6 months status post left ankle surgery who presents to the ED with left ankle pain that began this evening while at work. Patient states that she had surgery on this ankle to repair tendons approximately 6 months ago. She notes she has followed up with the surgeon since then for occasional swelling who notes this is part of the healing process. 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 She denies any new injury or trauma. Patient states she has taken Tylenol with minimal relief in symptoms. Patient notes the swelling that is present now has occurred intermittently throughout the past 6 months and is not new, however the pain is. Patient denies any known fevers. Review of Systems A 10 point review of systems is negative except as noted above. Medical and Surgical History: Reviewed and noted Social history: Lives at home Family History: Reviewed. Tobacco: Physical Exam Vitals & Measurements T: 36.8 ?C(Oral) HR: 85(Peripheral) RR: 16 BP: 164/97 SpO2: 100% HT: 152 cm WT: 111.2 kg BMI: 48.13 General: The patient appears well and in no apparent distress. Patient is resting comfortably on cart. Skin: Warm, dry, no pallor noted. Head: Normocephalic, atraumatic Eye: PERRLA, EOMI ENT: Moist mucus membranes Cardiovascular: Regular rate normal peripheral perfusion Respiratory: No respiratory distress no accessory muscle use no obvious audible wheezing Musculoskeletal: normal ROM, no deformity, healed scar to the lateral malleolus without surrounding erythema, swelling to the left lateral malleolus with tenderness to palpation, full range of motion of the left toes, neurovascularly intact Neurological: A&O moves all extremities equal strength and symmetry Psychiatric: Cooperative and appropriate Medical Decision Making Patient is a 33-year-old female 6 months status post left ankle surgery who presents to the ED with left ankle pain that began this evening while at work. Patient is afebrile. She denies the need for pain medication while in the ED. left ankle and foot x-ray interpreted by myself shows soft tissue swelling but no acute osseous findings. Patient was updated on the results. An Maninder wrap was applied to her ankle for comfort. Patient is receiving a shot of Toradol prior to discharge. She is being given a prescription for diflunisal. Patient will follow-up with her orthopedic surgeon for further management of care. She was advised to return to the ED with any worsening symptoms. Patient is agreeable with the plan and all questions were answered. Assessment/Plan Post-operative complication (T81.9XXA: Unspecified complication of procedure, initial encounter) Orders: ketorolac, 30 mg = 1 mL, Injection, IntraMuscular, Once, Stop date 10/23/23 23:21:00 EDT, STAT, Start date 10/23/23 23:21:00 EDT, 10/23/23 23:21:00 EDT XR Ankle 3+ Views Left XR Foot 3+ Views Left Medications Administered Given ketorolac 30 mg/mL Inj 1 mL, 30 mg, IntraMuscular Disposition Plan Patient Discharge Condition Stable Discharge Disposition Home Discharge Prescription List Prescriptions diflunisal 500 mg Tab, 500 mg= 1 tab(s), Oral, q12hr, PRN Follow-up With When Contact Information Call to schedule a follow-up appointment with your orthopedic surgeon for further management of care. Use the diflunisal as needed for pain. Do not use ibuprofen or naproxen with this as they are in the same family class. Return to the ED with any wors In 3 days 10/26/2023 EDT Additional Instructions: JUANITO DELEON In 3 days [address] [place] [phone] Business (1) Additional Instructions: Patient Education Ankle Sprain, Nhyw-vr-Trrj Attestation Patient seen and evaluated by the physician process assistant. Attending physician was present in the emergency department and supervised care. This visit was performed by both the physician and an APC. I performed all aspects of the MDM as documented. This report was transcribed using voice recognition software. Every effort was made to ensure accuracy, however, inadvertently computerized clinical research technician mistakes may be present. Appropriate healthcare PPE was used in evaluating this patient. The patient was placed in a mask. The healthcare provider was wearing mask, gloves, and utilizing proper hand hygiene. All equipment was properly cleansed. I performed a substantive part of the MDM during the patient?s E/M visit. I personally made or approved the documented management plan and acknowledge its risk of complications. (Independent Interpretation) My (EKG/X-Ray/US/CT as applicable) interpretation as above. (Discussion) M (more content not included)... Normal [facility] Comment on above: Result Comment: Elec tronically Signed By: Alyx De La Vega PA-C\.br\Date and Time Signed: 10/23/23 23:39 EDT\.br\Electronically Co-Signed By: Wesly Lopez DO\.br\Date and Time Co-Signed: 10/23/23 23:47 EDT ED Patient Summaryon ED Patient Summary ED Patient Summary [place] [address] Patient Discharge Instructions Person Information Name: LISANDRA SOLIS Age: 33 Years Arrival Date: 10/23/2023 22:24:58 Discharge Diagnosis: Post-operative complication Primary Care Physician: JUANITO DELEON CNP Provider Information Primary Provider: Wesly Lopez DO [employer] Representative:Alyx De La Vega PA-C The exam and treatment you received in the Emergency Department were for an urgent problem and are not intended as complete care. It is important that you follow up with a doctor, nurse practitioner, or physician?s process assistant for ongoing care. If your symptoms become worse or you do not improve as expected and you are unable to reach your usual health care provider, you should return to the Emergency Department. We are available 24 hours a day. LISANDRA SOLIS has been given the following list of patient education materials, prescriptions and follow-up instructions: Follow-up Instructions: With: Address: When: Call to schedule a follow-up appointment with your orthopedic surgeon for further management of care. Use the diflunisal as needed for pain. Do not use ibuprofen or naproxen with this as they are in the same family class. Return to the ED with any wors In 3 days 10/26/2023 With: Address: When: JUANITO Figuero[address] [facility] [place] [phone] Business (1) In 3 days In the event that this physician does not participate in your insurance network, please consult with your insurance company to find a nearby participating provider. Patient Education Materials: Ankle Sprain, Reko-fi-Uifo A MESSAGE TO ALL PATIENTS REGARDING OPIOIDS PRESCRIPTION OPIOIDS: WHAT YOU NEED TO KNOW Prescription opioids can be used to help relieve smhihutk-ro-jtoujb pain and are often prescribed following a surgery or injury, or for certain health conditions. These medications can be an important part of the treatment but also come with serious risks. It is important to work with your healthcare provider to make sure you are getting the safest, most effective care. WHAT ARE THE RISKS AND SIDE EFFECTS OF OPIOID USE? Prescription opioids carry serious risks of addiction and overdose, especially with prolonged use. An opioid overdose, often marked by slowed breathing, can cause sudden . The use of prescription opioids can have a number of side effects as well, even when taken as directed: ? Tolerance?meaning you might need to take more of the medication for the same pain relief ? Physical dependence?meaning you have symptoms of withdrawal when a medication is stopped ? Increased sensitivity to pain ? Constipation ? Nausea, vomiting, and dry mouth ? Sleepiness and dizziness ? Confusion ? Depression ? Low levels of testosterone that can result in lower sex drive, energy, and strength ? Itching and sweating RISKS ARE GREATER WITH: ? History of drug misuse, substance use disorder, or overdose ? Mental health conditions (such as depression or anxiety) ? Sleep apnea ? Older age (65 years and older) ? Avoid alcohol while taking prescription opioids. Also, unless specifically advised by your health care provider, medications to avoid include: ? Benzodiazepines (such as Xanax or Valium) ? Muscle relaxants (such as Soma or Flexeril) ? Hypnotics (such as Ambien or Lunesta) ? Other prescription opioids KNOW YOUR OPTIONS Talk to your health care provider about ways to manage your pain that don?t involve prescription opioids. Some of these options may actually work better and have fewer risks and side effects. Options may include: ? Pain relievers such as acetaminophen, ibuprofen, and naproxen ? Some medication that are also used for depression or seizures ? Physical therapy and exercise ? Cognitive behavioral therapy, a psychological, goal-directed approach, in which patients learn how to modify physical, behavioral, and emotional triggers of pain and stress. IF YOU ARE PRESCRIBED OPIOIDS FOR PAIN: ? Never take opioids in greater amounts or more often than prescribed. ? Follow up with your primary health care provider. o Work together to create a plan on how to manage your pain. o Talk about ways to help manage your pain that don?t involve prescription opioids. o Talk about any and all concerns and side effects. ? Help prevent misuse and abuse o Never sell or share prescription opioids. o Never use another person?s prescription opioids. ? Store prescription opioids in a secure place and out of reach of others (this may include visitors, children, friends, and family). ? Safely dispose of unused prescription opioids: Find your community drug take-back program or your pharmacy mail-back program, or flush them down the toilet, following guidance from the Food and Drug Administra (more content not included)... Normal [facility] XR chest 2V*on 10-04-2023 XR chest 2V* [facility] [place] [address] [place] [address] XRay Report Signed Patient: Lisandra Solis MR#: [id number] 54 : 1990 Acct:[id number] Age/Sex: 33 / F ADM Date: 10/03/23 Loc: ER Room: Type: [facility] ER Attending Dr: Copies to: Karoline Londono Jr, MD Ordering Provider: Karoline Londono Jr, MD Date of Service: 10/03/23 XR/XR chest 2V*: Chest Pain PA AND LATERAL CHEST: CLINICAL HISTORY: Sore throat, chest pain and headache COMPARISON: None There is no focal parenchymal consolidation, effusion or pneumothorax. The heart is top normal in size. The hilar and mediastinal silhouettes are within normal limits. There is no vascular congestion. The visualized bony thorax is intact. XR/XR chest 2V* IMPRESSION: NO ACUTE CARDIOPULMONARY ABNORMALITY. Impression dictated by: Radha Crook M.D.10/04/2023 8:45 AM Dictation Location: [place] [address] Transcribed By: MOODY 10/04/2345 Dictated By: Radha Crook MD 10/04/2344 Signed By: 10/04/23844 Normal [facility] Activated partial thrombopla stin time (aPTT) in platelet poor plasma by coagulation aOrdered By: Karoline Londono on 10-03-2023 aPTT Coag (PPP) [Time] 32.7 s 25.1-36.5 [facility] Comment on above: A hematocrit value g reater than 55% may lead to inaccurate results in coagulation testing. Patients having hematocrit values >55% require a special collection tube for coagulation studies. Please contact the laboratory at [phone] for redraw instructions. Automated basophil %Ordered By: Karoline Londono on 10-03-2023 Basophils/100 WBC (Bld) 0.6 % . [facility] Comment on above: Performed By: #### C BC, ESR, CRP, BMP #### [facility] [address] [place] [address] Automated basophil countOrde red By: Karoline Londono on 10-03-2023 Basophils (Bld) [#/Vol] 0.1 10*3/uL 0.0-0.2 [facility] Comment on above: Result Comment: PERF ORMED BY: [place] [address] PATHOLOGIST LABEL SEWER TRI ASH M.D. Performed By: #### C BC, ESR, CRP, BMP #### [facility] [address] [place] [address] Automated blood monocyte cou ntOrdered By: Karoline Londono on 10-03-2023 Monocytes (Bld) [#/Vol] 0.6 10*3/uL 0.0-0.8 [facility] Comment on above: Performed By: #### C BC, ESR, CRP, BMP #### [address] Automated eosinophil %Ordere d By: Karoline Londono on 10-03-2023 Eosinophils/100 WBC (Bld) 0.8 % . [facility] Comment on above: Performed By: #### C BC, ESR, CRP, BMP #### [address] Automated eosinophil countOr dered By: Karoline Londono on 10-03-2023 Eosinophils (Bld) [#/Vol] 0.1 10*3/uL 0.0-0.45 [facility] Comment on above: Performed By: #### C BC, ESR, CRP, BMP #### [address] Automated monocyte %Ordered By: Karoline Londono on 10-03-2023 Monocytes/100 WBC (Bld) 6.5 % . [facility] Comment on above: Performed By: #### C BC, ESR, CRP, BMP #### [address] Automated neutrophil %Ordere d By: Karoline Londono on 10-03-2023 Neutrophils/100 WBC (Bld) 65.6 % . [facility] Comment on above: Performed By: #### C BC, ESR, CRP, BMP #### [address] BNP ser/plasOrdered By: Prashant Londono on 10-03-2023 Natriuretic peptide B (Bld) [Mass/Vol] 30.0 pg/mL 5-100 [facility] Comment on above: Result Comment: PERF ORMED BY: [place] [address] PATHOLOGIST LABEL SEWER TRI ASH M.D. Performed By: #### C BC, ESR, CRP, BMP #### [address] Basic Metabolic Panelon 07-0 Creatinine Clr Calc Pharmacy 114.63 Normal [facility] Comment on above: Result Comment: PERF ORMED BY: [place] [address] PATHOLOGIST LABEL SEWER TRI ASH M.D. Performed By: #### C BC, ESR, CRP, BMP #### [address] GFR/1.73 sq M.predicted MDRD (S/P/Bld) [Vol rate/Area] mL/min/{1.73_m2} Normal [facility] Comment on above: Performed By: #### C BC, ESR, CRP, BMP #### [address] Calcium [Mass/volume] in Ser um or PlasmaOrdered By: Karoline Londono on 10-03-2023 Calcium [Mass/Vol] 9.8 mg/dL 8.6-10.3 [facility] Comment on above: Performed By: #### C BC, ESR, CRP, BMP #### [address] Carbon dioxide, total [Moles /volume] in Serum or PlasmaOrdered By: Karoline Londono on 10-03-2023 CO2 [Moles/Vol] 26.1 mmol/L 21.0-31.0 [facility] Comment on above: Performed By: #### C BC, ESR, CRP, BMP #### [address] Chloride [Moles/volume] in S damion or PlasmaOrdered By: Karoline Londono on 10-03-2023 Chloride [Moles/Vol] 106 mmol/L 98-107 [facility] Comment on above: Performed By: #### C BC, ESR, CRP, BMP #### [address] Complete Blood Count Auto Di ffon 10-03-2023 Mean Corpuscular HGB Conc 34.0 g/dL Normal 32.0-35.0 [facility] Comment on above: Performed By: #### C BC, ESR, CRP, BMP #### [place] [address] [place] Monocytes/100 WBC (Bld) 18.73 % Normal 0.00-20.00 [facility] Comment on above: Performed By: #### C BC, ESR, CRP, BMP #### [address] NRBC% 0.0 /100{WBC} Normal 0-0.5 [facility] Comment on above: Performed By: #### C BC, ESR, CRP, BMP #### [address] Creatinine [Mass/volume] in Serum or PlasmaOrdered By: Karoline Londono on 10-03-2023 Creatinine [Mass/Vol] 0.78 mg/dL 0.60-1.20 [facility] Comment on above: Performed By: #### C BC, ESR, CRP, BMP #### [address] D-Dimer High Sensitivityon 0 10-03-2023 D-Dimer High Sensitivity < 200 Normal 0-243 [facility] Comment on above: Result Comment: The reference range for D-dimer is <243 ng/mL D-dimer units. D-dimer results must be used in conjunction with a clinical pretest probability (PTP) assessment model for deep vein thrombosis (DVT) and pulmonary embolism (PE). Results <230 ng/mL d-dimer units can be used as a negative predictor in patients with low or moderate probability for DVT/PE. Results above the exclusion threshold of 230 ng/ml D-dimer units for DVT/PE may indicate the need for further diagnostic testing. D-Dimer can be increased in hospitalized patients due to co-morbid conditions. A hematocrit value greater than 55% may lead to inaccurate results in coagulation testing. Patients having hematocrit values >55% require a special collection tube for coagulation studies. Please contact the laboratory at [phone] for redraw instructions. PERFORMED BY: [place] [address] PATHOLOGIST LABEL SEWER TRI ASH M.D. Performed By: #### C BC, ESR, CRP, BMP #### [address] ECG 12 lead ECGon 10-03-2023 ECG 12 lead ECG [facility] [place] [address] [place] [address] Electrocardiograph Report Signed Patient: Lisandra Solis MR#: [id number] [birth year] : 1990 Acct:[id number] Age/Sex: 33 / F ADM Date: 10/03/23 Loc: ER Room: Type: [facility] ER Attending Dr: Ordering Provider: Karoline Londono Jr, MD Date of Service: 10/03/2309/20/2112 ECG/ECG 12 lead ECG: Chest Pain Copies to: Test Reason : Blood Pressure : / mmHG Vent. Rate : 081 BPM Atrial Rate : 081 BPM P-R Int : 168 ms QRS Dur : 082 ms QT Int : 370 ms P-R-T Axes : 055 067 036 degrees QTc Int : 429 ms Normal sinus rhythm Normal ECG When compared with ECG of 27-MAR-2023 22:20, Nonspecific T wave abnormality no longer evident in Lateral leads QT has shortened Confirmed by DENA SMITH FAC, ISMAEL ([id number]) on 10/06/2023 3:55:23 PM Referred By: Electronically Signed By:ISMAEL FERNANDES MD FAC Transcribed By: MUS Signed By Ismael Fernandes MD, FACC 10/06/23 8595 Normal [facility] Erythrocyte distribution wid th [Ratio] by Automated countOrdered By: Karoline Londono on 10-03-2023 Erythrocyte distribution width (RBC) [Ratio] 13.0 % 11.9-15.3 [facility] Comment on above: Performed By: #### C BC, ESR, CRP, BMP #### [facility] [address] Erythrocytes [#/volume] in B lood by Automated countOrdered By: Karoline Londono on 10-03-2023 RBC (Bld) [#/Vol] 4.39 10*6/uL 3.60-5.00 [facility] Comment on above: Performed By: #### C BC, ESR, CRP, BMP #### [facility] [address] [place] [address] Fibrin D-dimer [Presence] in Platelet poor plasma by Latex agglutinationOrdered By: Karoline Londono on 10-03-2023 Fibrin D-dimer LA Ql (PPP) < 200 ng/mL 0-243 [facility] Comment on above: The reference range for D-dimer is <243 ng/mL D-dimer units.D-dimer results must be used in conjunction with a clinicalpretest probability (PTP) assessment model for deep veinthrombosis (DVT) and pulmonary embolism (PE). Results <230ng/mL d-dimer units can be used as a negative predictor inpatients with low or moderate probability for DVT/PE.Results above the exclusion threshold of 230 ng/ml D-dimerunits for DVT/PE may indicate the need for furtherdiagnostic testing.D-Dimer can be increased in hospitalized patients due toco-morbid conditions.A hematocrit value greater than 55% may lead to inaccurate results in coagulation testing. Patients having hematocrit values >55% require a special collection tube for coagulation studies. Please contact the laboratory at [phone] for redraw instructions. Glucose [Mass/volume] in Ser um or PlasmaOrdered By: Karoline Londono on 10-03-2023 Glucose [Mass/Vol] 102 mg/dL High 70-100 [facility] Comment on above: ADA recommended refe rence rangeRandom Glucose Reference Range is dependent on time and content of last meal. Glucose of more than 200 mg/dL in a nonstressed, ambulatory subject supports the diagnosis of Diabetes Mellitus. Result Comment: [place] om Glucose Reference Range is dependent on time and content of last meal. Glucose of more than 200 mg/dL in a nonstressed, ambulatory subject supports the diagnosis of Diabetes Mellitus. ADA recommended reference range Performed By: #### C BC, ESR, CRP, BMP #### [address] Hematocrit [Volume Fraction] of Blood by Automated countOrdered By: Karoline Londono on 10-03-2023 Hematocrit (Bld) [Volume fraction] 37.7 % 34.0-46.4 [facility] Comment on above: Performed By: #### C BC, ESR, CRP, BMP #### [address] Hemoglobin [Mass/volume] in BloodOrdered By: Karoline Londono on 10-03-2023 Hemoglobin (Bld) [Mass/Vol] 12.8 g/dL 11.8-15.4 [facility] Comment on above: Performed By: #### C BC, ESR, CRP, BMP #### [address] [place] [address] [facility] INR in Platelet poor plasma by Coagulation assayOrdered By: Karoline Londono on 10-03-2023 INR Coag (PPP) [Relative time] 0.9 {INR} [facility] Comment on above: INR Therapeutic Rang e A) Pre- and Peroperative OAT started two weeks before surgery. NOT HIP SURGERY: 1.5 - 2.5 HIP SURGERY: 2 - 3B) Primary and secondary prevention of venous THROMBOSIS: 2 - 3C) Active venous thrombosis, pulmonary embolismand prevention of recurrent venous thrombosis: 2 - 3D) Prevention of arterial thromboembolismincluding patients with mechanical heart valves: 3 - 4.5 Result Comment: INR Therapeutic Range A) Pre- and Peroperative OAT started two weeks before surgery. NOT HIP SURGERY: 1.5 - 2.5 HIP SURGERY: 2 - 3 B) Primary and secondary prevention of venous THROMBOSIS: 2 - 3 C) Active venous thrombosis, pulmonary embolism and prevention of recurrent venous thrombosis: 2 - 3 D) Prevention of arterial thromboembolism including patients with mechanical heart valves: 3 - 4.5 Performed By: #### C BC, ESR, CRP, BMP #### [facility] [address] Leukocytes [#/volume] correc jessica for nucleated erythrocytes in Blood by Automated counOrdered By: Karoline Londono on 10-03-2023 WBC corrected for nucl RBC Auto (Bld) [#/Vol] 9.2 10*3/uL 3.8-11.6 [facility] Leukocytes [#/volume] in Blo od by Automated countOrdered By: Karoline Londono on 10-03-2023 WBC (Bld) [#/Vol] 9.2 10*3/uL 3.8-11.6 [facility] Comment on above: Performed By: #### C BC, ESR, CRP, BMP #### [facility] [address] [place] [id number] [place] Lymphocytes [#/volume] in Bl ood by Automated countOrdered By: Karoline Londono on 10-03-2023 Lymphocytes (Bld) [#/Vol] 2.4 10*3/uL 1.00-4.8 [facility] Comment on above: Performed By: #### C BC, ESR, CRP, BMP #### [address] Lymphocytes/100 leukocytes i n Blood by Automated countOrdered By: Karoline Londono on 10-03-2023 Lymphocytes/100 WBC (Bld) 26.5 % . [facility] Comment on above: Performed By: #### C BC, ESR, CRP, BMP #### [address] MCH [Entitic mass] by Automa jessica countOrdered By: Karoline Londono on 10-03-2023 MCH (RBC) [Entitic mass] 29.2 pg 24.7-34.3 [facility] Comment on above: Performed By: #### C BC, ESR, CRP, BMP #### [address] MCHC Auto (RBC) [Mass/Vol]Or dered By: Karoline Londono on 10-03-2023 MCHC (RBC) [Mass/Vol] 34.0 g/dL 32.0-35.0 [facility] MCV [Entitic volume] by Auto mated countOrdered By: Karoline Londono on 10-03-2023 MCV (RBC) [Entitic vol] 85.9 fL 80-100 [facility] Comment on above: Performed By: #### C BC, ESR, CRP, BMP #### [address] Monocyte distribution width [Entitic volume] in Blood by AutomatedOrdered By: Karoline Londono on 10-03-2023 Monocyte distribution width Auto (Bld) [Entitic vol] 18.73 % 0.00-20.00 [facility] Neutrophils [#/volume] in Bl ood by Automated countOrdered By: Karolnie Londono on 10-03-2023 Neutrophils (Bld) [#/Vol] 6.0 10*3/uL 1.8-7.7 [facility] Comment on above: Performed By: #### C BC, ESR, CRP, BMP #### [address] No Panel InformationOrdered By: Karoline Londono on 10-03-2023 Estimated GFR (CKD-EPI) > 60.0 mL/Min [facility] Creatinine Clearance (Chem 114.63 [facility] Nucleated erythrocytes [Pres ence] in Blood by Automated countOrdered By: Karoline Londono on 10-03-2023 Nucleated RBC Auto Ql (Bld) 0.0 /100{WBC} 0-0.5 [facility] Partial Thromboplastin Timeo n 10-03-2023 aPTT Coag (Bld) [Time] 32.7 s Normal 25.1-36.5 [facility] Comment on above: Result Comment: A he matocrit value greater than 55% may lead to inaccurate results in coagulation testing. Patients having hematocrit values >55% require a special collection tube for coagulation studies. Please contact the laboratory at [phone] for redraw instructions. Performed By: #### C BC, ESR, CRP, BMP #### [facility] [address] [place] [address] [place] Platelet mean volume [Entiti c volume] in Blood by Automated countOrdered By: Karoline Londono on 10-03-2023 Platelet mean volume (Bld) [Entitic vol] 8.6 fL 6.3-10.7 [facility] Comment on above: Performed By: #### C BC, ESR, CRP, BMP #### [facility] [address] [place] [address] [place] Platelets [#/volume] in Bloo d by Automated countOrdered By: Karoline Londono on 10-03-2023 Platelets (Bld) [#/Vol] 238 10*3/uL 150-450 [facility] Comment on above: Performed By: #### C BC, ESR, CRP, BMP #### [facility] [address] [place] [address] [place] Potassium [Moles/volume] in Serum or PlasmaOrdered By: Karoline Londono on 10-03-2023 Potassium [Moles/Vol] 3.8 mmol/L 3.5-5.1 [facility] Comment on above: Performed By: #### C BC, ESR, CRP, BMP #### [facility] [address] [place] [address] [place] Prothrombin time (PT)Ordered By: Karoline Londono on 10-03-2023 PT Coag (PPP) [Time] 10.1 s 9.0-12.9 [facility] Comment on above: A hematocrit value g reater than 55% may lead to inaccurate results in coagulation testing. Patients having hematocrit values >55% require a special collection tube for coagulation studies. Please contact the laboratory at [phone] for redraw instructions. Result Comment: A he matocrit value greater than 55% may lead to inaccurate results in coagulation testing. Patients having hematocrit values >55% require a special collection tube for coagulation studies. Please contact the laboratory at [phone] for redraw instructions. Performed By: #### C BC, ESR, CRP, BMP #### [address] Serum or plasma anion gap de terminationOrdered By: Karoline Londono on 10-03-2023 Anion gap [Moles/Vol] 6.7 mmol/L 6.0-15.0 [facility] Comment on above: Performed By: #### C BC, ESR, CRP, BMP #### [address] Sodium [Moles/volume] in Ser um or PlasmaOrdered By: Karoline Londono on 10-03-2023 Sodium [Moles/Vol] 135 mmol/L Low 136-145 [facility] Comment on above: Performed By: #### C BC, ESR, CRP, BMP #### [facility] [address] [place] [address] Troponin I High Sensitivityo n 10-03-2023 Troponin I High Sensitivity 3.5 pg/mL Normal 0.0-15.0 [facility] Comment on above: Result Comment: PERF ORMED BY: [place] [address] PATHOLOGIST LABEL SEWER TRI ASH M.D. Performed By: #### C BC, ESR, CRP, BMP #### [address] Troponin I.cardiac [Mass/vol ume] in Serum or Plasma by Detection limit <= 0.01 ng/Ordered By: Karoline Londono on 10-03-2023 Troponin I.cardiac DL <= 0.01 ng/mL [Mass/Vol] 3.5 pg/mL 0.0-15.0 [facility] Urea nitrogen [Mass/volume] in Serum or PlasmaOrdered By: Karoline Londono on 10-03-2023 Urea nitrogen [Mass/Vol] 17 mg/dL 7-25 [facility] Comment on above: Performed By: #### C BC, ESR, CRP, BMP #### [address] Human papilloma virus 16+18+ 31+33+35+39+45+51+52+56+58+59+66+68 DNA [Presence] in Jose Angel 08-12-2023 HPV 16+18+31+33+35+39+45+5 1+52+56+58+59+66+68 DNA Probe+sig amp Ql (Cvx) Negative Negative [facility] Comment on above: This nucleic acid am plification test detects fourteen high- risk HPV types (16,18,31,33,35,39,45,51,52,56,58,59,66,68)without differentiation.Performed at: =G - [facility] [address] [id number] Director: Arianne Sharma MD, Phone: [phone] at: [facility] [id number] Director: Arianne Sharma MD, Phone: [phone] No Panel Informationon 08-11 HPV High Risk Other Comment Note . [facility] Comment on above: TESTS RESULT FLAG UN ITS REF RANGE LAB DIAGNOSIS: 02 NEGATIVE FOR INTRAEPITHELIAL LESION OR MALIGNANCY. CELLULAR CHANGES ASSOCIATED WITH INFLAMMATION ARE PRESENT.Specimen adequacy: 02 Satisfactory for evaluation. Endocervical and/or squamous metaplastic cells (endocervical component) are present.Performed by: 02 Alyx Sanches, Boiler Repairman (ASCP). 02Note: Note 02 The Pap smear is a screening test designed to aid in the detection of premalignant and malignant conditions of the uterine cervix. It is not a diagnostic procedure and should not be used as the sole means of detecting cervical cancer. Both false-positive and false-negative reports do occur.Test Methodology: Note 02 This liquid based ThinPrep(R) pap test was screened with the use of an image guided system.HPV Genotype Reflex Note 02 Criteria not met, HPV Genotype not performed. ------- FLAG LEGEND: L-Low Normal,H-High Normal,LL-Alert Low,HH-Alert High <-Panic Low,>-Panic High,A-Abnormal,AA-Critical Abnormal -----Performed at:[address] [address] Arianne Sharma MD, Reference Lab Test Patient Age Note . [facility] Comment on above: TESTS RESULT FLAG UN ITS REF RANGE LAB Clinician Provided Cytology Information Source.............Cervix;Endocervix No. of containers..01 ThinPrep DianeAge Neymar LAND Dionna... 30 FLAG LEGEND: L-Low Normal,H-High Normal,LL-Alert Low,HH-Alert High <-Panic Low,>-Panic High,A-Abnormal,AA-Critical Abnormal -----Performed at:01 [facility] [address] [place] [address] Arianne Sharma MD, CNCOon 07-30-2023 CNCO Letter Text Normal [facility] CNPNon 07-30-2023 CNPN Telephone (OTOLIN) ----- LISANDRA SOLIS ([id number]) 1990 F Date Time Provider Department 07/30/23 JUDE APONTE During your visit today, we recorded the following information about you: Lupe Cole 07/30/2023 10:46 AM Signed Pt called Asked for a work excuse for 07/22. She couldn't get a fax number for PSS. Sent her [employer] registration info (she could get the letter that way) and also mailed to [place] address. Advised of 2 week delay Allergies As of Date: 07/30/2023 Noted Allergy Reaction VICODIN (HYDROCODONE-ACETAMINOPHE *07/11/2015 9 - Itching Date Reviewed: 07/23/2023 Reviewed by: Lupe Cramer LPN - Fully Assessed Reason for Visit: Letter [264] Prescriptions as of 07/30/2023 - Hydrocortisone 0.5 % lotn Twice daily - amLODIPine (NORVASC) 2.5 mg tablet Take 1 tablet by mouth once daily. - naproxen (NAPROSYN) 500 mg tablet Take 500 mg by mouth twice daily with meals. - hydrochlorothiazide (HYDRODIURIL, ESIDRIX) 25 mg tablet Take 25 mg by mouth once daily. Problem List As Of Date 07/30/2023 Noted Resolved [Z34.90] 07/25/2010 07/11/2015 Ovarian cyst, right [N83.201] 07/25/2010 07/11/2015 (spontaneous vaginal delivery) x 2 [O80] 07/11/2015 H/O section x 1 previa. [Z98.891] 07/11/2015 Encounter for post Essure sterilization check 2*07/11/2015 Encounter Status:Closed by LUPE COLE on 07/30/23 Normal [facility] CNOVon 07-23-2023 CNOV Office Visit (OTOLIN ) ----- LISANDRA SOLIS ([id number]) 1990 F Date Time Provider Department 07/23/23 10:55 AM JUDE APONTE During your visit today, we recorded the following information about you: Jude Aponte PA-C 07/23/2023 12:10 PM Signed CC: Lisandra Solis is 33 year old female who is self referred for left ear infection Assessment and Plan: (Z86.69) H/O otitis media (primary encounter diagnosis) (Z86.69) H/O acute otitis externa ~previous left ear infection 2-[address] facial on 05/07/23 showed evidence of left middle ear effusion, mastoid opacity and declining soft tissue density in EAC ~symptoms resolved today. Removed congealed wall of old blood from left EAC with DH and AF. Underlying canal and TM are normal ~follow up with me as needed HPI: Lisandra is a 33 year old who reports left ear infection. Started 2-3 months ago. +Pain, otorrhea, hearing loss, headache. Treated with antibiotics and ear drops with improvement. H/o recurrent ear infections in childhood, but not in adulthood until recent infection. No pain or drainage today. Notes hearing is back to baseline. No h/o ear surgeries or tubes. No adenoidectomy. ALLERGIES Allergen Reactions Vicodin [Hydrocodon* Itching Current Outpatient Medications Medication Sig Hydrocortisone 0.5 % lotn Twice daily amLODIPine (NORVASC) 2.5 mg tablet Take 1 tablet by mouth once daily. naproxen (NAPROSYN) 500 mg tablet Take 500 mg by mouth twice daily with meals. hydrochlorothiazide (HYDRODIURIL, ESIDRIX) 25 mg tablet Take 25 mg by mouth once daily. No current facility-administered medications for this visit. No past medical history on file. No past surgical history on file. Social History: Social History Tobacco Use Smoking status: Some Days Types: Cigarettes Last attempt to quit: 03/06/2010 Years since quittin.3 Smokeless tobacco: Never Substance Use Topics Alcohol use: No Drug use: No No family history on file. Review Of Systems GENERAL: No weight loss, malaise or fevers. HEENT: Negative for frequent or significant headaches, No changes in hearing or vision, Ears Positive for previous ear infection NECK: Negative for lumps, goiter, pain and significant neck swelling I have confirmed and edited as necessary the ROS obtained by others. Jude Aponte PA-C PHYSICAL EXAM: LMP 06/24/2015 No weight on file for this encounter. General appearance: Well appearing, alert, in no acute distress, well-hydrated, well nourished. Cranial Nerves: III-XII: grossly intact Skin: Skin color, texture, turgor normal, no suspicious rashes or lesions Head: normocephalic, no masses, lesions, tenderness or abnormalities Ears: Bilateral external ear normal, Left external auditory canal has wall of old congealed blood - removed with DH and AF - underlying canal is normal, Right EAC normal, Bilateral tympanic membrane normal after cleaning. Neuro: Gait normal. Mental status revealed patient to be alert and oriented. Mood is appropriate Jude Aponte PA-C Medical Decision Making: Problems: Low: Acute, uncomplicated illness or injury Data: Unique test result(s) reviewed: 1 Risk: Low: Low risk from testing/treatment Medical Decision Making Level: 3 - Low Allergies As of Date: 07/23/2023 Noted Allergy Reaction VICODIN (HYDROCODONE-ACETAMINOPHE *07/11/2015 9 - Itching Date Reviewed: 07/23/2023 Reviewed by: Lupe Cramer LPN - Fully Assessed Reason for Visit: Ear Problem [38] Cmt: A few months ago had a really bad ear infection in the left ear, wants to make sure it is ok, has never had a hearing test, no pain or discomfort at this time. Does not think she has hearing loss. Primary Visit Diagnosis:H/O otitis media [Z86.69] Other Visit Diagnosis:H/O acute otitis externa [Z86.69] Prescriptions as of 07/23/2023 - Hydrocortisone 0.5 % lotn Twice daily - amLODIPine (NORVASC) 2.5 mg tablet Take 1 tablet by mouth once daily. - naproxen (NAPROSYN) 500 mg tablet Take 500 mg by mouth twice daily with meals. - hydrochlorothiazide (HYDRODIURIL, ESIDRIX) 25 mg tablet Take 25 mg by mouth once daily. Problem List As Of Date 07/23/2023 Noted Resolved [Z34.90] 07/25/2010 07/11/2015 Ovarian cyst, right [N83.201] 07/25/2010 07/11/2015 (spontaneous vaginal delivery) x 2 [O80] 07/11/2015 H/O section x 1 previa. [Z98.891] 07/11/2015 Encounter for post Essure sterilization check 2*07/11/2015 Encounter Status:Closed by JUDE APONTE on 07/23/23 Normal [facility] Thyroid Stim Hormone w/Rflxo n 07-14-2023 Thyroid Stim Hormone w/Rflx 0.80 u[iU]/mL Normal 0.45-5.33 [facility] Comment on above: Result Comment: PERF ORMED BY: [address] [address] PATHOLOGIST LABEL SEWER TRI ASH M.D. Performed By: #### C BC, ESR, CRP, BMP #### [address] Thyrotropin [Units/volume] i n Serum or PlasmaOrdered By: Juanito Deleon on 07-14-2023 TSH Qn 0.80 m[IU]/L 0.45-5.[address] [facility] [address] facial bones w conon 04-30 CT facial bones w con [facility] [place] [address] [place] [id number] Scan Report Signed Patient: Lisandra Solis MR#: [id number] 54 : 1990 Acct:[id number] Age/Sex: 33 / F ADM Date: 05/13/23 Loc: ER Room: Type: [facility] ER Attending Dr: Copies to: Nimisha Wilkes APRN Ordering Provider: Nimisha Wilkes APRN Date of Service: 05/13/23 CT/CT facial bones w con: pain ([id number]) CT/CT head/brain wo con: pain CLINICAL DATA: Left ear pain over the past [address] and [address] BRAIN WITHOUT CONTRAST: COMPARISON: MRI 10/26/2015 TECHNIQUE: Contiguous axial unenhanced images were obtained through the brain. This CT exam was performed using one or more following dose reduction techniques: Automated exposure control, adjustment of the mA and/or kV according to patient size, or use of iterative reconstruction technique. FINDINGS: The ventricles are normal in size and position. There are no areas of abnormal attenuation. There is no hemorrhage, mass effect or extra-axial collections. There is minor polypoid mucosal change at the left maxillary sinus. CT/CT head/brain wo con IMPRESSION: NO ACUTE INTRACRANIAL ABNORMALITY. MAXILLOFACIAL CT WITH CONTRAST: COMPARISON: 05/07/2023 TECHNIQUE: Spiral axial images were obtained through the facial bones following 90 mL of Isovue 300. Coronal and sagittal reconstructions were also reviewed. This CT exam was performed using one or more following dose reduction techniques: Automated exposure control, adjustment of the mA and/or kV according to patient size, or use of iterative reconstruction technique. FINDINGS: No facial bone fracture or bony destruction is identified. There is appropriate development and pneumatization of the paranasal sinuses. There is minor polypoid mucosal thickening at the maxillary sinuses. No additional mucosal thickening or fluid levels are seen. The ostiomeatal complexes are patent. There is nasal septal deviation to the left. The intraorbital contents are unchanged. There are some residual opacified left mastoid air cells. The left middle ear effusion has nearly resolved. The soft tissue density obscuring the external auditory canal on that side is also improving. Periauricular and parotid lymph nodes are again visualized on the left. There are also mildly prominent cervical lymph nodes in the imaged jugulodigastric and posterior triangle region on both sides. IMPRESSION: MINIMAL CHRONIC MAXILLARY MUCOSAL THICKENING. IMPROVING LEFT OTOMASTOIDITIS AND SOFT TISSUE AT THE EXTERNAL AUDITORY CANAL. RESIDUAL LYMPH NODES. Impression dictated by: Radha Crook M.D.05/14/2023 7:55 AM Dictation Location: [place] [address] Transcribed By: MOODY 05/14/23 0755 Dictated By: Radha Crook MD 05/14/23 0745 Signed By: 05/14/23 0755 Normal [facility] Automated basophil %Ordered By: Nimisha Wilkes on 05-13-2023 Basophils/100 WBC (Bld) 0.7 % Normal . [facility] Comment on above: Performed By: #### B MP, CBC #### [facility] [address] [place] [address] Automated basophil countOrde red By: Nimisha Wilkes on 05-13-2023 Basophils (Bld) [#/Vol] 0.1 10*3/uL Normal 0.0-0.2 [facility] Comment on above: Result Comment: PERF ORMED BY: [place] [address] PATHOLOGIST LABEL SEWER TRI ASH M.D. Performed By: #### B MP, CBC #### [facility] [address] Automated blood monocyte cou ntOrdered By: Nimisha Wilkes on 05-13-2023 Monocytes (Bld) [#/Vol] 0.6 10*3/uL Normal 0.0-0.8 [facility] Comment on above: Performed By: #### B MP, CBC #### [facility] [address] [place] [address] [place] Automated eosinophil %Ordere d By: Nimisha Wilkes on 05-13-2023 Eosinophils/100 WBC (Bld) 0.7 % Normal . [facility] Comment on above: Performed By: #### B MP, CBC #### [address] Automated eosinophil countOr dered By: Nimisha Wilkes on 05-13-2023 Eosinophils (Bld) [#/Vol] 0.1 10*3/uL Normal 0.0-0.45 [facility] Comment on above: Performed By: #### B MP, CBC #### [address] Automated erythrocytes count in urine sediment (number/area)Ordered By: Sukhdeep Nielson on 05-13-2023 RBC Auto (Urine sed) [#/Area] 3-4 [HPF] 0-4 [facility] Automated leukocytes count i n urine sediment (number/area)Ordered By: Sukhdeep Nielson on 05-13-2023 WBC Auto (Urine sed) [#/Area] 10-19 [HPF] 0-4 [facility] Automated monocyte %Ordered By: Nimisha Wilkes on 05-13-2023 Monocytes/100 WBC (Bld) 6.1 % Normal . [facility] Comment on above: Performed By: #### B MP, CBC #### [address] Automated neutrophil %Ordere d By: Nimisha Wilkes on 05-13-2023 Neutrophils/100 WBC (Bld) 63.6 % Normal . [facility] Comment on above: Performed By: #### B MP, CBC #### [address] Automated urine color determ inationOrdered By: Sukhdeep Nielson on 05-13-2023 Color (U) Yellow Normal Yellow [facility] Comment on above: Order Comment: Name Collection Type:: Clean-Voided Midstream Performed By: #### C BC, ESR, CRP, BMP #### [address] Basic Metabolic Panelon 04-30 Creatinine Clr Calc Pharmacy 122.58 Normal [facility] Comment on above: Result Comment: PERF ORMED BY: [place] [address] PATHOLOGIST LABEL SEWER TRI ASH M.D. Performed By: #### B MP, CBC #### [facility] [address] GFR/1.73 sq M.predicted MDRD (S/P/Bld) [Vol rate/Area] mL/min/{1.73_m2} Normal [facility] Comment on above: Performed By: #### B MP, CBC #### [facility] [address] Bilirubin Test strip Ql (U)O rdered By: Sukhdeep Nielson on 05-13-2023 Bilirubin Ql (U) Negative Negative [facility] COVID CepheidOrdered By: Lisa Nielson on 05-13-2023 SARS-CoV-2 (COVID-19) Ab IA Ql Negative Negative [facility] Comment on above: This is a duplicate Cepheid Xpert Xpress CoV-2/Flu/RSV Plus RNA by RT-PCR result to be used for statistical tracking purpose only. SARS-CoV-2 (COVID-19) RNA VANNESA+probe Ql (Unsp spec) [facility] SARS-CoV-2 (COVID-19) RNA VANNESA+probe Ql (Unsp spec) [facility] COVID-19 / Flu A/B / RSV PCR on 05-13-2023 SARS-CoV-2 (COVID-19) RNA VANNESA+probe Ql (Unsp spec) COVID-19 Cepheid Result Negative for SARS-CoV-2 RNA by RT-PCR Flu A Cepheid Result Negative for Flu A RNA by RT-PCR Flu B Cepheid Result Negative for Flu B RNA by RT-PCR RSV Cepheid Result Negative for RSV RNA by RT-PCR COVID19 Blank Space ---- Reference: Negative COVID19 Blank Space ---- Cepheid Disclaimer The Cepheid Xpert Xpress CoV-2/Flu/RSV Plus has Cepheid Disclaimer not been FDA cleared or approved; this test has Cepheid Disclaimer been authorized by FDA under an EUA for use by Cepheid Disclaimer authorized laboratories; this test has been Cepheid Disclaimer authorized only for the simultaneous qualitative Cepheid Disclaimer detection and differentiation of nucleic acids from Cepheid Disclaimer SARS-CoV-2, influenza A, influenza B, and Cepheid Disclaimer respiratory syncytial virus (RSV), and not for any Cepheid Disclaimer other viruses or pathogens; and this test is only Cepheid Disclaimer authorized for the duration of the declaration that Cepheid Disclaimer circumstances exist justifying the authorization of Cepheid Disclaimer emergency use of in vitro diagnostic tests for Cepheid Disclaimer detection and/or diagnosis of COVID-19 under Cepheid Disclaimer Section 564(b)(1) of the Act, 21 U.S.C. 360bbb- Cepheid Disclaimer 3(b)(1), unless the authorization is terminated or Cepheid Disclaimer revoked sooner. PERFORMED BY: [place] [address] PATHOLOGIST LABEL SEWER TRI ASH M.D. Normal [facility] Comment on above: Performed By: #### C BC, ESR, CRP, BMP #### [facility] [address] [place] [id number] [place] Calcium [Mass/volume] in Ser um or PlasmaOrdered By: Nimisha Wilkes on 05-13-2023 Calcium [Mass/Vol] 9.9 mg/dL Normal 8.6-10.3 [facility] Comment on above: Performed By: #### B MP, CBC #### [facility] [address] [place] [id number] [place] Carbon dioxide, total [Moles /volume] in Serum or PlasmaOrdered By: Nimisha Wilkes on 05-13-2023 CO2 [Moles/Vol] 26.1 mmol/L Normal 21.0-31.0 [facility] Comment on above: Performed By: #### B MP, CBC #### [address] Cepheid COVID PCR Negativeon 05-13-2023 SARS-CoV-2 (COVID-19) RNA VANNESA+probe Ql (Unsp spec) Negative Normal Negative [facility] Comment on above: Result Comment: This is a duplicate Cepheid Xpert Xpress CoV-2/Flu/RSV Plus RNA by RT-PCR result to be used for statistical tracking purpose only. PERFORMED BY: [place] [address] PATHOLOGIST LABEL SEWER TRI ASH M.D. Performed By: #### C BC, ESR, CRP, BMP #### [address] Chloride [Moles/volume] in S damion or PlasmaOrdered By: Nimisha Wilkes on 05-13-2023 Chloride [Moles/Vol] 104 mmol/L Normal 98-107 [facility] Comment on above: Performed By: #### B MP, CBC #### [address] Complete Blood Count Auto Di ffon 05-13-2023 Mean Corpuscular HGB Conc 33.5 g/dL Normal 32.0-35.0 [facility] Comment on above: Performed By: #### B MP, CBC #### [address] Monocytes/100 WBC (Bld) 18.06 % Normal 0.00-20.00 [facility] Comment on above: Performed By: #### B MP, CBC #### [address] NRBC% 0.1 /100{WBC} Normal 0-0.5 [facility] Comment on above: Performed By: #### B MP, CBC #### [facility] [address] [place] [address] [place] Creatinine [Mass/volume] in Serum or PlasmaOrdered By: Nimisha Wilkes on 05-13-2023 Creatinine [Mass/Vol] 0.71 mg/dL Normal 0.60-1.20 [facility] Comment on above: Performed By: #### B MP, CBC #### [facility] [address] [place] [address] [place] Dipstick and Microscopicon 0 05-13-2023 Appearance (U) Clear Normal Clear [facility] Comment on above: Order Comment: Name Collection Type:: Clean-Voided Midstream Performed By: #### C BC, ESR, CRP, BMP #### [facility] [address] [place] [address] [place] Bacteria,Urine None Seen Normal None Seen [facility] Comment on above: Order Comment: Name Collection Type:: Clean-Voided Midstream Performed By: #### C BC, ESR, CRP, BMP #### [facility] [address] [place] [address] [place] Bilirubin,Urine Negative Normal Negative [facility] Comment on above: Order Comment: Name Collection Type:: Clean-Voided Midstream Performed By: #### C BC, ESR, CRP, BMP #### [facility] [address] [place] [id number] [place] Glucose Ql (U) Normal Normal Normal [facility] Comment on above: Order Comment: Name Collection Type:: Clean-Voided Midstream Performed By: #### C BC, ESR, CRP, BMP #### [facility] [address] [place] [id number] [place] Hyaline Casts,Urine 0-8 Normal 0-8 [facility] Comment on above: Order Comment: Name Collection Type:: Clean-Voided Midstream Performed By: #### C BC, ESR, CRP, BMP #### [facility] [address] [place] [id number] [place] Ketones Ql (U) Negative Normal Negative [facility] Comment on above: Order Comment: Name Collection Type:: Clean-Voided Midstream Performed By: #### C BC, ESR, CRP, BMP #### [address] Leukocyte esterase Test strip Ql (U) 3+ High Negative [facility] Comment on above: Order Comment: Name Collection Type:: Clean-Voided Midstream Performed By: #### C BC, ESR, CRP, BMP #### [address] Nitrite,Urine Negative Normal Negative [facility] Comment on above: Order Comment: Name Collection Type:: Clean-Voided Midstream Performed By: #### C BC, ESR, CRP, BMP #### [address] Occult Blood,Urine Trace High Negative [facility] Comment on above: Order Comment: Name Collection Type:: Clean-Voided Midstream Performed By: #### C BC, ESR, CRP, BMP #### [address] Protein,Urine Negative Normal Negative [facility] Comment on above: Order Comment: Name Collection Type:: Clean-Voided Midstream Performed By: #### C BC, ESR, CRP, BMP #### [address] RBC,Urine 3-4 Normal 0-4 [facility] Comment on above: Order Comment: Name Collection Type:: Clean-Voided Midstream Performed By: #### C BC, ESR, CRP, BMP #### [address] Specificy [place],Urine 1.020 Normal 1.001-1.03 0 [facility] Comment on above: Order Comment: Name Collection Type:: Clean-Voided Midstream Performed By: #### C BC, ESR, CRP, BMP #### [address] Squamous Epithelial Cell,Urine 3-4 High 0-2 [facility] Comment on above: Order Comment: Name Collection Type:: Clean-Voided Midstream Performed By: #### C BC, ESR, CRP, BMP #### [facility] [address] Urobilinogen,Urine Normal Normal Normal [facility] Comment on above: Order Comment: Name Collection Type:: Clean-Voided Midstream Performed By: #### C BC, ESR, CRP, BMP #### [facility] [address] WBC,Urine 10-19 High 0-4 [facility] Comment on above: Order Comment: Name Collection Type:: Clean-Voided Midstream Performed By: #### C BC, ESR, CRP, BMP #### [facility] [address] Erythrocyte distribution wid th [Ratio] by Automated countOrdered By: Nimisha Wilkes on 05-13-2023 Erythrocyte distribution width (RBC) [Ratio] 13.0 % Normal 11.9-15.3 [facility] Comment on above: Performed By: #### B MP, CBC #### [address] Erythrocytes [#/volume] in B lood by Automated countOrdered By: Nimisha Wilkes on 05-13-2023 RBC (Bld) [#/Vol] 4.67 10*6/uL Normal 3.60-5.00 [facility] Comment on above: Performed By: #### B MP, CBC #### [address] Glucose [Mass/volume] in Ser um or PlasmaOrdered By: Nimisha Wilkes on 05-13-2023 Glucose [Mass/Vol] 99 mg/dL Normal 70-100 [facility] Comment on above: ADA recommended refe rence rangeRandom Glucose Reference Range is dependent on time and content of last meal. Glucose of more than 200 mg/dL in a nonstressed, ambulatory subject supports the diagnosis of Diabetes Mellitus. Result Comment: [place] om Glucose Reference Range is dependent on time and content of last meal. Glucose of more than 200 mg/dL in a nonstressed, ambulatory subject supports the diagnosis of Diabetes Mellitus. ADA recommended reference range Performed By: #### B MP, CBC #### [facility] [address] [place] [address] HCG ( test) IA.rapi d Ql (U)Ordered By: Sukhdeep Nielson on 05-13-2023 HCG ( test) Ql (U) Negative [facility] HCG,Urineon 05-13-2023 Beta HCG ( test) Ql (U) Negative Normal [facility] Comment on above: Order Comment: Name Collection Type:: Clean-Voided Midstream Result Comment: PERF ORMED BY: [place] [address] PATHOLOGIST LABEL SEWER TRI ASH M.D. Performed By: #### C BC, ESR, CRP, BMP #### [address] Hematocrit [Volume Fraction] of Blood by Automated countOrdered By: Nimisha Wilkes on 05-13-2023 Hematocrit (Bld) [Volume fraction] 40.0 % Normal 34.0-46.4 [facility] Comment on above: Performed By: #### B MP, CBC #### [facility] [address] [place] [address] Hemoglobin [Mass/volume] in BloodOrdered By: Nimisha Wilkes on 05-13-2023 Hemoglobin (Bld) [Mass/Vol] 13.4 g/dL Normal 11.8-15.4 [facility] Comment on above: Performed By: #### B MP, CBC #### [facility] [address] [place] [address] Ketones Auto test strip (U) [Mass/Vol]Ordered By: Sukhdeep Nielson on 05-13-2023 Ketones (U) [Mass/Vol] Negative Negative [facility] - UrinalysisOrder ed By: Sukhdeep Nielson on 05-13-2023 Hyaline casts LM Ql (Urine sed) 0-8 [LPF] 0-8 [facility] Lactate [Moles/volume] in Se rum or PlasmaOrdered By: Nimisha Wilkes on 05-13-2023 Lactate [Moles/Vol] 0.6 mmol/L Normal 0.5-2.2 [facility] Comment on above: Result Comment: PERF ORMED BY: [place] [address] PATHOLOGIST LABEL SEWER TRI ASH M.D. Performed By: #### C BC, ESR, CRP, BMP #### [facility] [address] [place] [address] Leukocytes [#/volume] correc jessica for nucleated erythrocytes in Blood by Automated counOrdered By: Nimisha Wilkes on 05-13-2023 WBC corrected for nucl RBC Auto (Bld) [#/Vol] 9.0 10*3/uL 3.8-11.6 [facility] Leukocytes [#/volume] in Blo od by Automated countOrdered By: Nimisha Wilkes on 05-13-2023 WBC (Bld) [#/Vol] 9.0 10*3/uL Normal 3.8-11.6 [facility] Comment on above: Performed By: #### B MP, CBC #### [place] [address] [place] Lymphocytes [#/volume] in Bl ood by Automated countOrdered By: Nimisha Wilkes on 05-13-2023 Lymphocytes (Bld) [#/Vol] 2.6 10*3/uL Normal 1.00-4.8 [facility] Comment on above: Performed By: #### B MP, CBC #### [place] [address] [place] Lymphocytes/100 leukocytes i n Blood by Automated countOrdered By: Nimisha Wilkes on 05-13-2023 Lymphocytes/100 WBC (Bld) 28.9 % Normal . [facility] Comment on above: Performed By: #### B MP, CBC #### [place] [address] [place] MCH [Entitic mass] by Automa jessica countOrdered By: Nimisha Wilkes on 05-13-2023 MCH (RBC) [Entitic mass] 28.7 pg Normal 24.7-34.3 [facility] Comment on above: Performed By: #### B MP, CBC #### [facility] [address] MCHC Auto (RBC) [Mass/Vol]Or dered By: Nimisha Wilkes on 05-13-2023 MCHC (RBC) [Mass/Vol] 33.5 g/dL 32.0-35.0 [facility] MCV [Entitic volume] by Auto mated countOrdered By: Nimisha Wilkes on 05-13-2023 MCV (RBC) [Entitic vol] 85.7 fL Normal 80-100 [facility] Comment on above: Performed By: #### B MP, CBC #### [facility] [address] [place] [address] Monocyte distribution width [Entitic volume] in Blood by AutomatedOrdered By: Nimisha Wilkes on 05-13-2023 Monocyte distribution width Auto (Bld) [Entitic vol] 18.06 % 0.00-20.00 [facility] Neutrophils [#/volume] in Bl ood by Automated countOrdered By: Nimisha Wilkes on 05-13-2023 Neutrophils (Bld) [#/Vol] 5.7 10*3/uL Normal 1.8-7.7 [facility] Comment on above: Performed By: #### B MP, CBC #### [facility] [address] [place] [address] Nitrite Test strip Ql (U)Ord ered By: Sukhdeep Nielson on 05-13-2023 Nitrite Ql (U) Negative Negative [facility] No Panel InformationOrdered By: Nimisha Wilkes on 05-13-2023 Estimated GFR (CKD-EPI) > 60.0 mL/Min [facility] Creatinine Clearance (Chem 122.58 [facility] Nucleated erythrocytes [Pres ence] in Blood by Automated countOrdered By: Nimisha Wilkes on 05-13-2023 Nucleated RBC Auto Ql (Bld) 0.1 /100{WBC} 0-0.5 [facility] Platelet mean volume [Entiti c volume] in Blood by Automated countOrdered By: Nimisha Wilkes on 05-13-2023 Platelet mean volume (Bld) [Entitic vol] 8.5 fL Normal 6.3-10.7 [facility] Comment on above: Performed By: #### B MP, CBC #### [place] [address] [place] Platelets [#/volume] in Bloo d by Automated countOrdered By: Nimisha Wilkes on 05-13-2023 Platelets (Bld) [#/Vol] 335 10*3/uL Normal 150-450 [facility] Comment on above: Performed By: #### B MP, CBC #### [place] [address] [place] Potassium [Moles/volume] in Serum or PlasmaOrdered By: Nimisha Wilkes on 05-13-2023 Potassium [Moles/Vol] 3.5 mmol/L Normal 3.5-5.1 [facility] Comment on above: Performed By: #### B BORA, CBC #### [address] Protein Auto test strip (U) [Mass/Vol]Ordered By: Sukhdeep Nielson on 05-13-2023 Protein (U) [Mass/Vol] Negative Negative [facility] Serum or plasma anion gap de terminationOrdered By: Nimisha Wilkes on 05-13-2023 Anion gap [Moles/Vol] 12.4 mmol/L Normal 6.0-15.0 [facility] Comment on above: Performed By: #### B BORA, CBC #### [place] [address] [place] Sodium [Moles/volume] in Ser um or PlasmaOrdered By: Nimisha Wilkes on 05-13-2023 Sodium [Moles/Vol] 139 mmol/L Normal 136-145 [facility] Comment on above: Performed By: #### B BORA, CBC #### [place] [address] [place] Specific gravity Auto test s trip (U) [Rel density]Ordered By: Sukhdeep Nielson on 05-13-2023 Specific gravity (U) [Rel density] 1.020 1.001-1.03 0 [facility] Squamous epithelial cells de tection in urine sediment by light microscopyOrdered By: Sukhdeep Nielson on 05-13-2023 Epithelial cells.squamous LM Ql (Urine sed) 3-4 [HPF] 0-2 [facility] Urea nitrogen [Mass/volume] in Serum or PlasmaOrdered By: Nimisha Wilkes on 05-13-2023 Urea nitrogen [Mass/Vol] 10 mg/dL Normal 7-25 [facility] Comment on above: Performed By: #### B MP, CBC #### [facility] [address] [place] [address] Urine Cultureon 05-13-2023 Bacteria identified Cx Nom (U) <9,000 colonies/ml mixed bacterial skin contaminants 2 Days PERFORMED BY: [place] [address] PATHOLOGIST LABEL SEWER TRI ASH M.D. Normal [facility] Comment on above: Performed By: #### C BC, ESR, CRP, BMP #### [facility] [address] [place], [place] [id number] [facility] Urine bacteria detection by automated methodOrdered By: Sukhdeep Nielson on 05-13-2023 Bacteria Auto Ql (U) None seen None Seen [facility] Urine clarity by refractomet ry automatedOrdered By: Sukhdeep Nielson on 05-13-2023 Clarity Refractometry automated (U) Clear Clear [facility] Urine culture routineOrdered By: Sukhdeep Nielson on 05-13-2023 Bacteria identified Cx Nom (U) 2 Days [facility] Urine glucose measurement by automated test strip (mass/volume)Ordered By: Sukhdeep Nielson on 05-13-2023 Glucose Auto test strip (U) [Mass/Vol] Normal mg/dL Normal [facility] Urine hemoglobin detection b y automated test stripOrdered By: Sukhdeep Nielson on 05-13-2023 Hemoglobin Auto test strip Ql (U) Trace Negative [facility] Urine leukocyte esterase det ection by automated test stripOrdered By: Sukhdeep Nielson on 05-13-2023 Leukocyte esterase Auto test strip Ql (U) 3+ Negative [facility] Urine pH measurement by auto mated test stripOrdered By: Sukhdeep Nielson on 05-13-2023 pH (U) 5.5 [pH] Normal 5.0-9.0 [facility] Comment on above: Order Comment: Name Collection Type:: Clean-Voided Midstream Performed By: #### C BC, ESR, CRP, BMP #### [facility] [address] Urobilinogen Auto test strip (U) [Mass/Vol]Ordered By: Sukhdeep Nielson on 05-13-2023 Urobilinogen (U) [Mass/Vol] Normal mg/dL Normal [facility] CT facial bones w conon CT facial bones w con [facility] [place] [address] [place] [address] CT Scan Report Signed Patient: Lisandra Solis MR#: [id number] 54 : 1990 Acct:[id number] Age/Sex: 33 / F ADM Date: 05/07/23 Loc: ER Room: Type: [facility] ER Attending Dr: Copies to: Markie Alegria PA-C Ordering Provider: Markie Alegria PA-C Date of Service: 05/07/23 CT/CT facial bones w con: facial swelling CT Facial Bones with contrast TECHNIQUE: Axial imaging with 2-D reconstruction. 90 cc of Isovue-300. The CT exam was performed using one or more the following dose reduction techniques: Automated exposure control, adjustment of the MA and/or Kv according to patient size, or use of the iterative reconstruction technique. HISTORY: Left ear pain. 3 days duration. Prescription without relief. Swelling LEFT side of the face. COMPARISON: None FRACTURES: None BONY LESIONS: None ORBITS: Unremarkable SINUSES: The sinuses are well pneumatized. SOFT TISSUES: Skin marker present on the LEFT face at the level of mandible. Skin thickening involves the LEFT external auditory canal. Surrounding inflammation noted circumferentially. Findings suggest soft tissue infectious process. ADDITIONAL FINDINGS: Opacification of the mastoids and middle ear. Soft tissue encircles the ossicles which are intact. Findings may indicate acute mastoiditis. No bony destruction. Visuali zed portion of the LEFT transverse sinus patent. LEFT jugular vein patent and jugular foramen. No erosion of the scutum present. Heterogeneity of the LEFT parotid may be secondary to desiccation infection. Intraparotid lymph nodes noted bilaterally. Bilateral neck nodes likely reactive. These are more prominent on the LEFT. CT/CT facial bones w con IMPRESSION: The LEFT external auditory canal, mastoid and middle ear opacification. Skin thickening circumferentially in the miguel of the LEFT external auditory canal. Consider acute infection. May represent mastoiditis. No acute bony destruction. May consider MRI for concern for intracranial extension. Impression dictated by: Raghav Dupree M.D.05/08/2023 8:02 AM Dictation Location: [place] [address] Transcribed By: [facility] 05/08/23801 Dictated By: Raghav Dupree DO 05/08/23 0753 Signed By: 05/08/23801 Normal [facility] Automated basophil %Ordered By: Markie Alegria on 05-07-2023 Basophils/100 WBC (Bld) 0.6 % Normal . [facility] Comment on above: Performed By: #### C BC, ESR, CRP, BMP #### [address] Automated basophil countOrde red By: Markie Alegria on 05-07-2023 Basophils (Bld) [#/Vol] 0.1 10*3/uL Normal 0.0-0.2 [facility] Comment on above: Performed By: #### C BC, ESR, CRP, BMP #### [address] Automated blood monocyte cou ntOrdered By: Markie Alegria on 05-07-2023 Monocytes (Bld) [#/Vol] 0.8 10*3/uL Normal 0.0-0.8 [facility] Comment on above: Performed By: #### C BC, ESR, CRP, BMP #### [address] Automated eosinophil %Ordere d By: Markie Alegria on 05-07-2023 Eosinophils/100 WBC (Bld) 0.5 % Normal . [facility] Comment on above: Performed By: #### C BC, ESR, CRP, BMP #### [address] Automated eosinophil countOr dered By: Markie Alegria on 05-07-2023 Eosinophils (Bld) [#/Vol] 0.1 10*3/uL Normal 0.0-0.45 [facility] Comment on above: Performed By: #### C BC, ESR, CRP, BMP #### [address] Automated monocyte %Ordered By: Markie Alegria on 05-07-2023 Monocytes/100 WBC (Bld) 7.8 % Normal . [facility] Comment on above: Performed By: #### C BC, ESR, CRP, BMP #### [address] Automated neutrophil %Ordere d By: Markie Alegria on 05-07-2023 Neutrophils/100 WBC (Bld) 68.6 % Normal . [facility] Comment on above: Performed By: #### C BC, ESR, CRP, BMP #### [address] Basic Metabolic Panelon Anion gap [Moles/Vol] Not performed Normal 6.0-15.0 [facility] Comment on above: Performed By: #### C BC, ESR, CRP, BMP #### [address] Creatinine Clr Calc Pharmacy 147.26 Normal [facility] Comment on above: Performed By: #### C BC, ESR, CRP, BMP #### [address] GFR/1.73 sq M.predicted MDRD (S/P/Bld) [Vol rate/Area] mL/min/{1.73_m2} Normal [facility] Comment on above: Performed By: #### C BC, ESR, CRP, BMP #### [address] Potassium Normal 3.5-5.1 [facility] Comment on above: Result Comment: Spec imen hemolyzed, redraw requested Performed By: #### C BC, ESR, CRP, BMP #### [facility] [address] [place] [address] [place] C reactive protein [Mass/vol ume] in Serum or PlasmaOrdered By: Markie Alegria on 05-07-2023 CRP [Mass/Vol] 9.4 mg/dL 0.0-0.5 [facility] C-Reactive Proteinon 024 C-Reactive Protein 9.4 mg/dL High 0.0-0.5 [facility] Comment on above: Result Comment: PERF ORMED BY: [place] [address] PATHOLOGIST LABEL SEWER TRI ASH M.D. Performed By: #### C BC, ESR, CRP, BMP #### [place] [address] [place] Calcium [Mass/volume] in Ser um or PlasmaOrdered By: Markie Alegria on 05-07-2023 Calcium [Mass/Vol] 9.5 mg/dL Normal 8.6-10.3 [facility] Comment on above: Performed By: #### C BC, ESR, CRP, BMP #### [address] Carbon dioxide, total [Moles /volume] in Serum or PlasmaOrdered By: Markie Alegria on 05-07-2023 CO2 [Moles/Vol] 25.4 mmol/L Normal 21.0-31.0 [facility] Comment on above: Performed By: #### C BC, ESR, CRP, BMP #### [facility] [address] [place] [address] [place] Chloride [Moles/volume] in S damion or PlasmaOrdered By: Markie Alegria on 05-07-2023 Chloride [Moles/Vol] 102 mmol/L Normal 98-107 [facility] Comment on above: Performed By: #### C BC, ESR, CRP, BMP #### [facility] [address] [place] [address] [place] Complete Blood Count Auto Di ffon 05-07-2023 Mean Corpuscular HGB Conc 32.6 g/dL Normal 32.0-35.0 [facility] Comment on above: Performed By: #### C BC, ESR, CRP, BMP #### [address] Monocytes/100 WBC (Bld) 22.66 % High 0.00-20.00 [facility] Comment on above: Result Comment: For adults in ED, MDW > 20.0 may be associated with a higher risk of sepsis during the first 12 hrs of hospital admission Performed By: #### C BC, ESR, CRP, BMP #### [address] NRBC% 0.0 /100{WBC} Normal 0-0.5 [facility] Comment on above: Performed By: #### C BC, ESR, CRP, BMP #### [address] Creatinine [Mass/volume] in Serum or PlasmaOrdered By: Markie Alegria on 05-07-2023 Creatinine [Mass/Vol] 0.59 mg/dL Low 0.60-1.20 [facility] Comment on above: Performed By: #### C BC, ESR, CRP, BMP #### [address] Erythrocyte Sedimentation Ra blade 05-07-2023 ESR (Bld) [Velocity] 65 mm/h High 0-19 [facility] Comment on above: Result Comment: PERF ORMED BY: [place] [address] PATHOLOGIST LABEL SEWER TRI ASH M.D. Performed By: #### C BC, ESR, CRP, BMP #### [address] Erythrocyte distribution wid th [Ratio] by Automated countOrdered By: Markie Alegria on 05-07-2023 Erythrocyte distribution width (RBC) [Ratio] 13.1 % Normal 11.9-15.3 [facility] Comment on above: Performed By: #### C BC, ESR, CRP, BMP #### [address] [place] [address] [place] Erythrocyte sedimentation ra te by Photometric methodOrdered By: Markie Alegria on 05-07-2023 ESR Photometric method (Bld) [Velocity] 65 mm/hr 0-19 [facility] Erythrocytes [#/volume] in B lood by Automated countOrdered By: Markie Alegria on 05-07-2023 RBC (Bld) [#/Vol] 4.31 10*6/uL Normal 3.60-5.00 [facility] Comment on above: Performed By: #### C BC, ESR, CRP, BMP #### [facility] [address] Glucose [Mass/volume] in Ser um or PlasmaOrdered By: Markie Alegria on 05-07-2023 Glucose [Mass/Vol] 107 mg/dL High 70-100 [facility] Comment on above: ADA recommended refe rence rangeRandom Glucose Reference Range is dependent on time and content of last meal. Glucose of more than 200 mg/dL in a nonstressed, ambulatory subject supports the diagnosis of Diabetes Mellitus. Result Comment: [place] om Glucose Reference Range is dependent on time and content of last meal. Glucose of more than 200 mg/dL in a nonstressed, ambulatory subject supports the diagnosis of Diabetes Mellitus. ADA recommended reference range Performed By: #### C BC, ESR, CRP, BMP #### [facility] [address] Hematocrit [Volume Fraction] of Blood by Automated countOrdered By: Markie Alegria on 05-07-2023 Hematocrit (Bld) [Volume fraction] 37.2 % Normal 34.0-46.4 [facility] Comment on above: Performed By: #### C BC, ESR, CRP, BMP #### [place] [address] [place] Hemoglobin [Mass/volume] in BloodOrdered By: Markie Alegria on 05-07-2023 Hemoglobin (Bld) [Mass/Vol] 12.1 g/dL Normal 11.8-15.4 [facility] Comment on above: Performed By: #### C BC, ESR, CRP, BMP #### [facility] [address] [place] [address] Leukocytes [#/volume] correc jessica for nucleated erythrocytes in Blood by Automated counOrdered By: Markie Alegria on 05-07-2023 WBC corrected for nucl RBC Auto (Bld) [#/Vol] 9.7 10*3/uL 3.8-11.6 [facility] Leukocytes [#/volume] in Blo od by Automated countOrdered By: Markie Alegria on 05-07-2023 WBC (Bld) [#/Vol] 9.7 10*3/uL Normal 3.8-11.6 [facility] Comment on above: Performed By: #### C BC, ESR, CRP, BMP #### [facility] [address] [place] [address] Lymphocytes [#/volume] in Bl ood by Automated countOrdered By: Markie Alegria on 05-07-2023 Lymphocytes (Bld) [#/Vol] 2.2 10*3/uL Normal 1.00-4.8 [facility] Comment on above: Performed By: #### C BC, ESR, CRP, BMP #### [facility] [address] [place] [address] Lymphocytes/100 leukocytes i n Blood by Automated countOrdered By: Markie Alegria on 05-07-2023 Lymphocytes/100 WBC (Bld) 22.5 % Normal . [facility] Comment on above: Performed By: #### C BC, ESR, CRP, BMP #### [facility] [address] [place] [address] MCH [Entitic mass] by Automa jessica countOrdered By: Markie Alegria on 05-07-2023 MCH (RBC) [Entitic mass] 28.1 pg Normal 24.7-34.3 [facility] Comment on above: Performed By: #### C BC, ESR, CRP, BMP #### [facility] [address] [place] [address] MCHC Auto (RBC) [Mass/Vol]Or dered By: Markie Alegria on 05-07-2023 MCHC (RBC) [Mass/Vol] 32.6 g/dL 32.0-35.0 [facility] MCV [Entitic volume] by Auto mated countOrdered By: Markie Alegria on 05-07-2023 MCV (RBC) [Entitic vol] 86.3 fL Normal 80-100 [facility] Comment on above: Performed By: #### C BC, ESR, CRP, BMP #### [facility] [address] [place] [address] [place] Monocyte distribution width [Entitic volume] in Blood by AutomatedOrdered By: Markie Alegria on 05-07-2023 Monocyte distribution width Auto (Bld) [Entitic vol] 22.66 % 0.00-20.00 [facility] Comment on above: For adults in ED, MD W > 20.0 may be associated with a higher risk of sepsis during the first 12 hrs of hospital admission Neutrophils [#/volume] in Bl ood by Automated countOrdered By: Markie Alegria on 05-07-2023 Neutrophils (Bld) [#/Vol] 6.7 10*3/uL Normal 1.8-7.7 [facility] Comment on above: Performed By: #### C BC, ESR, CRP, BMP #### [facility] [address] No Panel InformationOrdered By: Markie Alegria on 05-07-2023 Estimated GFR (CKD-EPI) > 60.0 mL/Min [facility] Creatinine Clearance (Chem 147.26 [facility] Nucleated erythrocytes [Pres ence] in Blood by Automated countOrdered By: Markie Alegria on 05-07-2023 Nucleated RBC Auto Ql (Bld) 0.0 /100{WBC} 0-0.5 [facility] Platelet mean volume [Entiti c volume] in Blood by Automated countOrdered By: Markie Alegria on 05-07-2023 Platelet mean volume (Bld) [Entitic vol] 9.1 fL Normal 6.3-10.7 [facility] Comment on above: Performed By: #### C BC, ESR, CRP, BMP #### [facility] [address] [place] [address] [place] Platelets [#/volume] in Bloo d by Automated countOrdered By: Markie Alegria on 05-07-2023 Platelets (Bld) [#/Vol] 249 10*3/uL Normal 150-450 [facility] Comment on above: Performed By: #### C BC, ESR, CRP, BMP #### [facility] [address] [place] [address] Potassium [Moles/volume] in Serum or PlasmaOrdered By: Markie Alegria on 05-07-2023 Potassium [Moles/Vol] 4.0 mmol/L Normal 3.5-5.1 [facility] Comment on above: Result Comment: PERF ORMED BY: [place] [address] PATHOLOGIST LABEL SEWER TRI ASH M.D. Performed By: #### R EDAAMIR Bejarano #### [address] Serum or plasma anion gap de terminationOrdered By: Markie Alegria on 05-07-2023 Anion gap [Moles/Vol] TNP [facility] Comment on above: Test not performed Sodium [Moles/volume] in Ser um or PlasmaOrdered By: Markie Alegria on 05-07-2023 Sodium [Moles/Vol] 133 mmol/L Low 136-145 [facility] Comment on above: Performed By: #### C BC, ESR, CRP, BMP #### [address] Urea nitrogen [Mass/volume] in Serum or PlasmaOrdered By: Markie Alegria on 05-07-2023 Urea nitrogen [Mass/Vol] 12 mg/dL Normal 7-25 [facility] Comment on above: Performed By: #### C BC, ESR, CRP, BMP #### [facility] [address] [place] [address] [place] Carlitos 04-16-2023 L Specimen: [id number] Received: 04/16/23 Status: WILFREDO Reariel Num: [id number] Spec Type: Surgical Subm Dr: Mark Mayorga,DPM, MS Tissues: A Tendon/Sheath (LT PERONEAL TENDON) Procedures: HE, Gross/Micro L3 Age/ Patient Sex Location Account Attending Physician Lisandra Solis 33/F LABELL [id number] Mark Mayorga DPM, MS SPEC NUM: [id number] RECD: 04/16/23 STATUS: WILFREDO ROJASAriel NUM: [id number] BLAIRE: 04/16/[address] [facility] [address]: Mark Mayorga DPM, MS ENTERED: 04/16/23 [facility] DR: Katherine,Lab SPEC TYPE: Surgical DEPT: ESTHER ASHLEY ORDERED: HE, Gross/Micro L3 ORDERED: HE, Gross/Micro L3 Pathological Diagnosis 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 Clinical Information Left ankle instability Gross Description Received in formalin labeled with the patient's name, date of and left peroneal tendon synovitis is a 3.2 x 2.5 x 0.3 cm aggregate of white-yellow to red-brown soft tissue. Entirely submitted in one cassette labeled A1. CPT Codes 49709 Specimen: [id number] Received: 04/16/23 Status: WILFREDO Rojasariel Num: [id number] Spec Type: Surgical Subm Dr: Mark Mayorga DPM, MS Tissues: A Tendon/Sheath (LT PERONEAL TENDON) Procedures: INGRIS, Gross/Micro L3 Patient: Lisandra Solis [id number] (Continued) Signed (signature on file) Aurelio Hayden MD 04/19/234 Normal [facility] Alanine aminotransferase [En zymatic activity/volume] in Serum or PlasmaOrdered By: Karoline Londono on 03-27-2023 ALT [Catalytic activity/Vol] 22 U/L Normal 7-52 [facility] Comment on above: Performed By: #### C MP, CBC #### [facility] [address] [place] [address] Albumin [Mass/volume] in Ser um or Plasma by Bromocresol green (BCG) dye binding methoOrdered By: Karoline Londono on 03-27-2023 Albumin BCG dye [Mass/Vol] 4.4 g/dL 3.5-5.7 [facility] Alkaline phosphatase [Enzyma tic activity/volume] in Serum or PlasmaOrdered By: Karoline Londono on 03-27-2023 ALP [Catalytic activity/Vol] 79 U/L Normal 34-104 [facility] Comment on above: Performed By: #### C MP, CBC #### [facility] [address] [place] [address] [place] Aspartate aminotransferase [ Enzymatic activity/volume] in Serum or PlasmaOrdered By: Karoline Londono on 03-27-2023 AST [Catalytic activity/Vol] 17 U/L Normal 13-39 [facility] Comment on above: Performed By: #### C MP, CBC #### [address] Automated basophil %Ordered By: Karoline Londono on 03-27-2023 Basophils/100 WBC (Bld) 0.2 % Normal . [facility] Comment on above: Performed By: #### C MP, CBC #### [address] Automated basophil countOrde red By: Karoline Londono on 03-27-2023 Basophils (Bld) [#/Vol] 0.0 10*3/uL Normal 0.0-0.2 [facility] Comment on above: Result Comment: PERF ORMED BY: [place] [address] PATHOLOGIST LABEL SEWER TRI ASH M.D. Performed By: #### C MP, CBC #### [address] Automated blood monocyte cou ntOrdered By: Karoline Londono on 03-27-2023 Monocytes (Bld) [#/Vol] 0.6 10*3/uL Normal 0.0-0.8 [facility] Comment on above: Performed By: #### C MP, CBC #### [address] Automated eosinophil %Ordere d By: Karoline Londono on 03-27-2023 Eosinophils/100 WBC (Bld) 0.4 % Normal . [facility] Comment on above: Performed By: #### C MP, CBC #### [address] Automated eosinophil countOr dered By: Karoline Londono on 03-27-2023 Eosinophils (Bld) [#/Vol] 0.1 10*3/uL Normal 0.0-0.45 [facility] Comment on above: Performed By: #### C MP, CBC #### [address] Automated monocyte %Ordered By: Karoline Londono on 03-27-2023 Monocytes/100 WBC (Bld) 3.6 % Normal . [facility] Comment on above: Performed By: #### C MP, CBC #### [address] Automated neutrophil %Ordere d By: Karoline Londono on 03-27-2023 Neutrophils/100 WBC (Bld) 74.7 % Normal . [facility] Comment on above: Performed By: #### C MP, CBC #### [address] Bilirubin.total [Mass/volume ] in Serum or PlasmaOrdered By: Karoline Londono on 03-27-2023 Bilirubin [Mass/Vol] 0.3 mg/dL Normal 0.3-1.0 [facility] Comment on above: Performed By: #### C MP, CBC #### [address] Calcium [Mass/volume] in Ser um or PlasmaOrdered By: Karoline Londono on 03-27-2023 Calcium [Mass/Vol] 9.0 mg/dL Normal 8.6-10.3 [facility] Comment on above: Performed By: #### C MP, CBC #### [address] Carbon dioxide, total [Moles /volume] in Serum or PlasmaOrdered By: Karoline Londono on 03-27-2023 CO2 [Moles/Vol] 24.1 mmol/L Normal 21.0-31.0 [facility] Comment on above: Performed By: #### C MP, CBC #### [place] [address] [place] Chloride [Moles/volume] in S damion or PlasmaOrdered By: Karoline Londono on 03-27-2023 Chloride [Moles/Vol] 104 mmol/L Normal 98-107 [facility] Comment on above: Performed By: #### C MP, CBC #### [address] Complete Blood Count Auto Di ffon 03-27-2023 Mean Corpuscular HGB Conc 33.1 g/dL Normal 32.0-35.0 [facility] Comment on above: Performed By: #### C MP, CBC #### [address] Monocytes/100 WBC (Bld) 22.21 % High 0.00-20.00 [facility] Comment on above: Result Comment: For adults in ED, MDW > 20.0 may be associated with a higher risk of sepsis during the first 12 hrs of hospital admission Performed By: #### C MP, CBC #### [address] NRBC% 0.1 /100{WBC} Normal 0-0.5 [facility] Comment on above: Performed By: #### C MP, CBC #### [address] Comprehensive Metabolic Pane acrlitos 03-27-2023 Albumin [Mass/Vol] 4.4 g/dL Normal 3.5-5.7 [facility] Comment on above: Performed By: #### C MP, CBC #### [address] Creatinine Clr Calc Pharmacy 119.59 Normal [facility] Comment on above: Result Comment: PERF ORMED BY: [place] [address] PATHOLOGIST LABEL SEWER TRI ASH M.D. Performed By: #### C MP, CBC #### [address] GFR/1.73 sq M.predicted MDRD (S/P/Bld) [Vol rate/Area] mL/min/{1.73_m2} Normal [facility] Comment on above: Performed By: #### C MP, CBC #### [place] [address] [place] Creatinine [Mass/volume] in Serum or PlasmaOrdered By: Karoline Londono on 03-27-2023 Creatinine [Mass/Vol] 0.71 mg/dL Normal 0.60-1.20 [facility] Comment on above: Performed By: #### C MP, CBC #### [address] [place] [address] [place] ECG 12 lead ECGon 03-27-2023 ECG 12 lead ECG [facility] [place] [address] [place] [address] Electrocardiograph Report Signed Patient: Lisandra Solis MR#: [id number] 54 : 1990 Acct:[id number] Age/Sex: 33 / F ADM Date: 03/27/23 Loc: ER Room: Type: [facility] ER Attending Dr: Ordering Provider: Karoline [...] ECGs available Confirmed by KAROLINE LONDONO MD ([id number]) on 03/28/2023 5:51:37 AM Referred By: Electronically Signed By:KAROLINE LONDONO MD Transcribed By: MUS Signed [place], [place] 0[address] Normal [facility] Erythrocyte distribution wid th [Ratio] by Automated countOrdered By: Karoline Londono on 03-27-2023 Erythrocyte distribution width (RBC) [Ratio] 13.1 % Normal 11.9-15.3 [facility] Comment on above: Performed By: #### C MP, CBC #### [facility] [address] [place] [address] Erythrocytes [#/volume] in B lood by Automated countOrdered By: Karoline Londono on 03-27-2023 RBC (Bld) [#/Vol] 4.37 10*6/uL Normal 3.60-5.00 [facility] Comment on above: Performed By: #### C MP, CBC #### [facility] [address] [place] [address] Glucose [Mass/volume] in Ser um or PlasmaOrdered By: Karoline Londono on 03-27-2023 Glucose [Mass/Vol] 214 mg/dL High 70-100 [facility] Comment on above: ADA recommended refe rence rangeRandom Glucose Reference Range is dependent on time and content of last meal. Glucose of more than 200 mg/dL in a nonstressed, ambulatory subject supports the diagnosis of Diabetes Mellitus. Result Comment: [place] om Glucose Reference Range is dependent on time and content of last meal. Glucose of more than 200 mg/dL in a nonstressed, ambulatory subject supports the diagnosis of Diabetes Mellitus. ADA recommended reference range Performed By: #### C MP, CBC #### [address] Hematocrit [Volume Fraction] of Blood by Automated countOrdered By: Karoline Londono on 03-27-2023 Hematocrit (Bld) [Volume fraction] 37.4 % Normal 34.0-46.4 [facility] Comment on above: Performed By: #### C MP, CBC #### [address] Hemoglobin [Mass/volume] in BloodOrdered By: Karoline Londono on 03-27-2023 Hemoglobin (Bld) [Mass/Vol] 12.4 g/dL Normal 11.8-15.4 [facility] Comment on above: Performed By: #### C MP, CBC #### [address] Leukocytes [#/volume] correc jessica for nucleated erythrocytes in Blood by Automated counOrdered By: Karoline Londono on 03-27-2023 WBC corrected for nucl RBC Auto (Bld) [#/Vol] 17.2 10*3/uL 3.8-11.6 [facility] Leukocytes [#/volume] in Blo od by Automated countOrdered By: Karoline Londono on 03-27-2023 WBC (Bld) [#/Vol] 17.2 10*3/uL High 3.8-11.6 [facility] Comment on above: Performed By: #### C MP, CBC #### [address] Lymphocytes [#/volume] in Bl ood by Automated countOrdered By: Karoline Londono on 03-27-2023 Lymphocytes (Bld) [#/Vol] 3.6 10*3/uL Normal 1.00-4.8 [facility] Comment on above: Performed By: #### C MP, CBC #### [address] Lymphocytes/100 leukocytes i n Blood by Automated countOrdered By: Karoline Londono on 03-27-2023 Lymphocytes/100 WBC (Bld) 21.1 % Normal . [facility] Comment on above: Performed By: #### C MP, CBC #### [address] MCH [Entitic mass] by Automa jessica countOrdered By: Karoline Londono on 03-27-2023 MCH (RBC) [Entitic mass] 28.3 pg Normal 24.7-34.3 [facility] Comment on above: Performed By: #### C MP, CBC #### [address] MCHC Auto (RBC) [Mass/Vol]Or dered By: Karoline Londono on 03-27-2023 MCHC (RBC) [Mass/Vol] 33.1 g/dL 32.0-35.0 [facility] MCV [Entitic volume] by Auto mated countOrdered By: Karoline Londono on 03-27-2023 MCV (RBC) [Entitic vol] 85.6 fL Normal 80-100 [facility] Comment on above: Performed By: #### C MP, CBC #### [address] Monocyte distribution width [Entitic volume] in Blood by AutomatedOrdered By: Karoline Londono on 03-27-2023 Monocyte distribution width Auto (Bld) [Entitic vol] 22.21 % 0.00-20.00 [facility] Comment on above: For adults in ED, MD W > 20.0 may be associated with a higher risk of sepsis during the first 12 hrs of hospital admission Neutrophils [#/volume] in Bl ood by Automated countOrdered By: Karoline Londono on 03-27-2023 Neutrophils (Bld) [#/Vol] 12.8 10*3/uL High 1.8-7.7 [facility] Comment on above: Performed By: #### C MP, CBC #### [address] No Panel InformationOrdered By: Karoline Londono on 03-27-2023 Estimated GFR (CKD-EPI) > 60.0 mL/Min [facility] Creatinine Clearance (Chem 119.59 [facility] Nucleated erythrocytes [Pres ence] in Blood by Automated countOrdered By: Karoline Londono on 03-27-2023 Nucleated RBC Auto Ql (Bld) 0.1 /100{WBC} 0-0.5 [facility] Platelet mean volume [Entiti c volume] in Blood by Automated countOrdered By: Karoline Londono on 03-27-2023 Platelet mean volume (Bld) [Entitic vol] 8.3 fL Normal 6.3-10.7 [facility] Comment on above: Performed By: #### C MP, CBC #### [address] Platelets [#/volume] in Bloo d by Automated countOrdered By: Karoline Londono on 03-27-2023 Platelets (Bld) [#/Vol] 336 10*3/uL Normal 150-450 [facility] Comment on above: Performed By: #### C MP, CBC #### [address] Potassium [Moles/volume] in Serum or PlasmaOrdered By: Karoline Londono on 03-27-2023 Potassium [Moles/Vol] 3.3 mmol/L Low 3.5-5.1 [facility] Comment on above: Performed By: #### C MP, CBC #### [place] [address] [place] Protein [Mass/volume] in Ser um or PlasmaOrdered By: Karoline Londono on 03-27-2023 Protein [Mass/Vol] 7.6 g/dL Normal 6.4-8.9 [facility] Comment on above: Performed By: #### C MP, CBC #### [address] Serum globulin measurement b y calculation (mass/volume)Ordered By: Karoline Londono on 03-27-2023 Globulin (S) [Mass/Vol] 3.2 g/dL [facility] Comment on above: Performed By: #### C MP, CBC #### [facility] [address] Serum or plasma albumin/glob ulin mass ratioOrdered By: Karoline Londono on 03-27-2023 Albumin/Globulin [Mass ratio] 1.4 {ratio} [facility] Comment on above: Performed By: #### C MP, CBC #### [facility] [address] Serum or plasma anion gap de terminationOrdered By: Karoline Londono on 03-27-2023 Anion gap [Moles/Vol] 12.2 mmol/L Normal 6.0-15.0 [facility] Comment on above: Performed By: #### C MP, CBC #### [facility] [address] [place] [address] [place] Sodium [Moles/volume] in Ser um or PlasmaOrdered By: Karoline Londono on 03-27-2023 Sodium [Moles/Vol] 137 mmol/L Normal 136-145 [facility] Comment on above: Performed By: #### C MP, CBC #### [facility] [address] [place] [address] [place] Urea nitrogen [Mass/volume] in Serum or PlasmaOrdered By: Karoline Londono on 03-27-2023 Urea nitrogen [Mass/Vol] 15 mg/dL Normal - [facility] Comment on above: Performed By: #### C MP, CBC #### [facility] [address] [place] [address] [place] Alanine aminotransferase [En zymatic activity/volume] in Serum or PlasmaOrdered By: Uriah Skinner on 02-17-2023 ALT [Catalytic activity/Vol] 26 U/L Normal [facility] Comment on above: Order Comment: Reaso n for Exam Hypertension;Fatty liver Reason for Exam Hypertension;Fatty liver;Medication monitoring encounter Performed By: #### C BC, ESR, CRP, BMP #### [facility] [address] [id number] [facility] Vitamin B12 ser/plasOrdered By: Uriah Skinner on 02-17-2023 Cobalamin (Vitamin B12) [Mass/Vol] 364 pg/mL Normal 180-914 [facility] Comment on above: Order Comment: Reaso n for Exam Hypertension;Fatty liver Reason for Exam Hypertension;Fatty liver;Medication monitoring encounter Result Comment: PERF ORMED BY: [facility] [address] [place] [address] PATHOLOGIST LABEL SEWER TRI ASH M.D. Performed By: #### C BC, ESR, CRP, BMP #### [facility] [address] COVID + FLU Quick Testingon 12-11-2022 SARS-CoV-2 (COVID-19) RNA VANNESA+probe Ql (Unsp spec) Negative [facility] Other COVID + FLU Quick Testing Negative [facility] Other Quick Strepon 12-11-2022 S. pyogenes Org specific cx Ql (Throat) Positive [facility] Other Quick Strep [facility] Other HCG ( test) IA.rapi d Ql (U)Ordered By: Johann Moe on 07-28-2022 HCG ( test) Ql (U) Negative [facility] CBC AUTO DIFFon 06-06-2022 BASO # 0.0 103/ul Normal 0.0-0.1 [facility] Comment on above: Performed By: #### C BC #### [facility] [address] [place] [address] Dr. Jorge Luis Ferris Basophils/100 WBC (Bld) 0.2 % Normal 0.2-2.0 [facility] Comment on above: Performed By: #### C BC #### [facility] [address] [place] [address] Dr. Jorge Luis Ferris EO # 0.0 103/ul Normal 0.0-0.7 [facility] Comment on above: Performed By: #### C BC #### [facility] [address] [place] [address] Dr. Jorge Luis Ferris Eosinophils/100 WBC (Bld) 0.5 % Critically low 0.9-7.0 [facility] Comment on above: Performed By: #### C BC #### [facility] [address] [place] [address] Dr. Jorge Luis Ferris Erythrocyte distribution width (RBC) [Ratio] 12.4 % Normal 11.0-15.0 [facility] Comment on above: Performed By: #### C BC #### [facility] [address] [place] [address] Dr. Jorge Luis Ferris Hematocrit (Bld) [Volume fraction] 37.4 % Normal 36.0-48.0 [facility] Comment on above: Performed By: #### C BC #### [facility] [address] [place] [address] Dr. Jorge Luis Ferris Hemoglobin (Bld) [Mass/Vol] 12.4 g/dL Normal 12.0-16.0 [facility] Comment on above: Performed By: #### C BC #### [facility] [address] [place] [address] Dr. Jorge Luis Ferris IG # 0.03 10e3/ul Normal 0.00-0.03 [facility] Comment on above: Performed By: #### C BC #### [facility] [address] [place] [address] Dr. Jorge Luis Ferris IG % 0.4 % Normal 0.0-0.5 [facility] Comment on above: Performed By: #### C BC #### [facility] [address] [place] [address] Dr. Jorge Luis Ferris LYMPH # 2.5 103/ul Normal 1.2-3.8 [facility] Comment on above: Performed By: #### C BC #### [facility] [address] [place] [address] Dr. Jorge Luis Ferris Lymphocytes/100 WBC (Bld) 30.4 % Normal 20.5-60.0 [facility] Comment on above: Performed By: #### C BC #### [facility] [address] [place] [address] Dr. Jorge Luis Ferris MANUAL DIFF REQ NO Normal [facility] Comment on above: Performed By: #### C BC #### [facility] [address] [place] [address] Dr. Jorge Luis Ferris MCH (RBC) [Entitic mass] 28.6 pg Normal 26.7-34.0 [facility] Comment on above: Performed By: #### C BC #### [facility] [address] [place] [address] Dr. Jorge Luis Ferris MCHC (RBC) [Mass/Vol] 33.2 g/dL Normal 29.9-35.2 [facility] Comment on above: Performed By: #### C BC #### [facility] [address] [place] [address] Dr. Jorge Luis Ferris MCV (RBC) [Entitic vol] 86.2 fL Normal 81.0-99.0 [facility] Comment on above: Performed By: #### C BC #### [facility] [address] [place] [address] Dr. Jorge Luis Ferris MONO # 0.5 103/ul Normal 0.3-0.8 [facility] Comment on above: Performed By: #### C BC #### [facility] [address] [place] [address] Dr. Jorge Luis Ferris Monocytes/100 WBC (Bld) 5.4 % Normal 1.7-12.0 [facility] Comment on above: Performed By: #### C BC #### [facility] [address] [place] [address] Dr. Jorge Luis Ferris NEUT # 5.2 103/ul Normal 1.4-6.5 [facility] Comment on above: Performed By: #### C BC #### [facility] [address] [place] [address] Dr. Jorge Luis Ferris Neutrophils/100 WBC (Bld) 63.1 % Normal 43.0-75.0 [facility] Comment on above: Performed By: #### C BC #### [facility] [address] [address] [address] Jorge Luis Ferris Platelet mean volume (Bld) [Entitic vol] 10.3 fL Normal 9.5-13.5 [facility] Comment on above: Performed By: #### C BC #### [facility] [address] [address] [address] Jorge Luis Ferris PLT 236 103/ul Normal 150-450 [facility] Comment on above: Performed By: #### C BC #### [facility] [address] [address] [address] Jorge Luis Ferris RBC 4.34 106/ul Normal 4.20-5.40 [facility] Comment on above: Performed By: #### C BC #### [facility] [address] [address] [address] Jorge Luis Ferris WBC 8.3 103/ul Normal 4.0-11.0 [facility] Comment on above: Performed By: #### C BC #### [facility] [address] [place] [address] [address] CSPINE WO CONon 3 CT CSPINE WO CON EXAMINATION: CT CSPI NE WO CON HISTORY: Paresthesia of upper limb [...] NATALIE HERNANDEZ Date: 2022-06-06 20:03 Normal [facility] CT HEAD WO CONon 06-06-2022 CT HEAD [...] by: BEKA UNLU Date: 2022-06-06 20:06 Normal [facility] CULTURE URINEon 06-06-2022 CULTURE URINE Culture Observations : LIGHT GROWTH OF MIXED GENITAL RISA. NO POTENTIAL PATHOGENS SEEN. Normal [facility] Comment on above: Performed By: #### U RCX #### [facility] [address] [place] [address] Dr. Jorge Luis Ferris ER URINE PROFILEon 3 Bilirubin Ql (U) Negative Normal NEGATIVE [facility] Comment on above: Performed By: #### 4 [id number] #### [facility] [address] [place] [address] Dr. Jorge Luis Ferris Clarity (U) CLEAR Normal CLEAR [facility] Comment on above: Performed By: #### 4 [id number] #### [facility] [address] [place] [address] Dr. Jorge Luis Ferris Color (U) YELLOW Normal YELLOW [facility] Comment on above: Performed By: #### 4 [id number] #### [facility] [address] [place] [address] Dr. Jorge Luis Ferris ERUAHD A micrscopic examina tion will be performed if indicated. Normal [facility] Comment on above: Performed By: #### 4 [id number] #### [facility] [address] [place] [address] Dr. Jorge Luis Ferris Glucose Ql (U) Negative Normal NEGATIVE [facility] Comment on above: Performed By: #### 4 [id number] #### [facility] [address] [place] [address] Dr. Jorge Luis Ferris Hemoglobin Ql (U) Negative Normal NEGATIVE [facility] Comment on above: Performed By: #### 4 [id number] #### [facility] [address] [place] [address] Dr. Jorge Luis Ferris Ketones Ql (U) Negative Normal NEGATIVE [facility] Comment on above: Performed By: #### 4 [id number] #### [facility] [address] [place] [address] Dr. Jorge Luis Ferris LEUKOCYTES MODERATE Abnormal NEGATIVE [facility] Comment on above: Performed By: #### 4 [id number] #### [facility] [address] [place] [address] Dr. Jorge Luis Ferris Nitrite Ql (U) Negative Normal NEGATIVE [facility] Comment on above: Performed By: #### 4 [id number] #### [facility] [address] [place] [address] Dr. Jorge Luis Ferris pH (U) 7.0 [pH] Normal 5-9 [facility] Comment on above: Performed By: #### 4 [id number] #### [facility] [address] [place] [address] Dr. Jorge Luis Ferris SPEC GRAVITY 1.020 Normal 1.005-<=1. 025 [facility] Comment on above: Performed By: #### 4 [id number] #### [facility] [address] [place] [address] Dr. Jorge Luis Ferris UA PROTEIN TRACE Normal NEGATIVE/ TRACE [facility] Comment on above: Performed By: #### 4 [id number] #### [facility] [address] [place] [address] Dr. Jorge Luis Ferris UR MICRO IND INDICATED Normal [facility] Comment on above: Performed By: #### 4 [id number] #### [facility] [address] [place] [address] Dr. Jorge Luis Ferris Urobilinogen Qn (U) 0.2 {Álvaro'U}/dL Normal 0.2 - 1. 0 [facility] Comment on above: Performed By: #### 4 [id number] #### [facility] [address] [address] [address] Jorge Luis Ferris PREG HCG QUALon 06-06-2022 , QUAL Negative Normal NEGATIVE [facility] Comment on above: Performed By: #### 4 [id number] #### [facility] [address] [place] [address] Dr. Jorge Luis Ferris PROF CHEM 8 (BAS METB)on Anion gap [Moles/Vol] 9.2 mmol/L Normal [facility] Comment on above: Performed By: #### B BORA, TSH #### [facility] [address] [place] [address] Dr. Jorge Luis Ferris Calcium [Mass/Vol] 8.9 mg/dL Normal 8.5-10.1 [facility] Comment on above: Performed By: #### B BORA, TSH #### [facility] [address] [place] [address] Dr. Jorge Luis Ferris Chloride [Moles/Vol] 103 mmol/L Normal 98-107 [facility] Comment on above: Performed By: #### B BORA, TSH #### [facility] [address] [place] [address] Dr. Jorge Luis Ferris CO2 [Moles/Vol] 26.4 mmol/L Normal 21.0-32.0 [facility] Comment on above: Performed By: #### B BORA, TSH #### [facility] [address] [place] [address] Dr. Jorge Luis Ferris Creatinine [Mass/Vol] 0.64 mg/dL Normal 0.55-1.02 [facility] Comment on above: Performed By: #### B BORA, TSH #### [facility] [address] [place] [address] Dr. Jorge Luis Ferris EGFR-AF JAPANESE >60 Normal >=60 [facility] Comment on above: Performed By: #### B BORA, TSH #### [facility] [address] [place] [address] Dr. Jorge Luis Ferris EGFR-NON AF JAPANESE >60 Normal >=60 [facility] Comment on above: Performed By: #### B BORA, TSH #### [facility] [address] [place] [address] Dr. Jorge Luis Ferris Glucose [Mass/Vol] 97 mg/dL Normal 74-106 [facility] Comment on above: Performed By: #### B BORA, TSH #### [facility] [address] [place] [address] Dr. Jorge Luis Ferris Potassium [Moles/Vol] 3.6 mmol/L Normal 3.5-5.1 [facility] Comment on above: Performed By: #### B BORA, TSH #### [facility] [address] [place] [address] Dr. Jorge Luis Ferris Sodium [Moles/Vol] 135 mmol/L Critically low 136-145 [facility] Comment on above: Performed By: #### B BORA, TSH #### [facility] [address] [place] [address] Dr. Jorge Luis Ferris Urea nitrogen [Mass/Vol] 11.0 mg/dL Normal 7.0-18.0 [facility] Comment on above: Performed By: #### B BOAR, TSH #### [facility] [address] [place] [address] Dr. Jorge Luis Ferris Urea nitrogen/Creatinine [Mass ratio] 17.2 mg/mg Normal [facility] Comment on above: Performed By: #### B BORA, TSH #### [facility] [address] [place] [address] Dr. Jorge Luis Ferris TSHon 06-06-2022 TSH 1.148 uIU/mL Normal 0.358-3.74 0 [facility] Comment on above: Performed By: #### B BORA, TSH #### [facility] [address] [place] [address] Dr. Jorge Luis Ferris URINE MICROSCOPIC ONLYon BACTERIA LARGE Abnormal NONE SEEN [facility] Comment on above: Performed By: #### 4 [id number] #### [facility] [address] [place] [address] Dr. Jorge Luis Ferris Bacteria identified Cx Nom (U) INDICATED Normal [facility] Comment on above: Performed By: #### 4 [id number] #### [facility] [address] [place] [address] Dr. Jorge Luis Ferris CAST NONE SEEN Normal NONE SEEN [facility] Comment on above: Performed By: #### 4 [id number] #### [facility] [address] [place] [address] Dr. Jorge Luis Ferris Crystals LM Nom (Urine sed) NONE SEEN Normal NONE SEEN [facility] Comment on above: Performed By: #### 4 [id number] #### [facility] [address] [place] [address] Dr. Jorge Luis Ferris Epithelial cells LM Ql (Urine sed) MANY Abnormal NONE SEEN /RARE [facility] Comment on above: Performed By: #### 4 [id number] #### [facility] [address] [place] [address] Dr. Jorge Luis Ferris MUCOUS LARGE Abnormal NONE SEEN [facility] Comment on above: Performed By: #### 4 [id number] #### [facility] [address] [place] [address] Dr. Jorge Luis Ferris RBC 0-2 Normal 0-2 [facility] Comment on above: Performed By: #### 4 [id number] #### [facility] [address] [place] [address] Dr. Jorge Luis Ferris WBC 5-10 Abnormal NONE SEEN [facility] Comment on above: Performed By: #### 4 [id number] #### [facility] [address] [place] [address] Dr. Jorge Luis Ferirs TSHon 05-08-2022 TSH 0.687 uIU/mL Normal 0.358-3.74 0 [facility] Comment on above: Performed By: #### T SH #### [facility] [address] [place] [address] ABDOMEN WO/W CONon 2021 CT ABDOMEN WO/W CON EXAMINATION: CT ABDO MEN WO/W CON HISTORY: Chronic, intermittent Right upper [...] Otherwise unremarkable CT abdomen. Electronically authenticated by: LEILANI ALANIS Date: 2022-02-05 07:28 Normal [facility] Amylaseon 09-27-2021 Amylase 40 U/L Normal 28-100 U/L [facility] Other Hepatic Panelon 09-27-2021 Albumin [Mass/Vol] 3.718265 g/dL Normal 3.2-5.5 g/dL [facility] Other Albumin/Globulin [Mass ratio] 1.2 {ratio} [facility] Other ALP [Catalytic activity/Vol] 79 U/L Normal 32-92 U/L [facility] Other ALT [Catalytic activity/Vol] 73 U/L High 10-60 U/L [facility] Other AST [Catalytic activity/Vol] 40 U/L Normal 10-42 U/L [facility] Other Bilirubin [Mass/Vol] 0.3165811 mg/dL Normal 0.3- 1.2 mg/dL [facility] Other Bilirubin.indirect [Mass/Vol] mg/dL Normal 0.0-0.4 [facility] Other Protein [Mass/Vol] 6.700819 g/dL Normal 6.1-7.9 g/dL [facility] Other Hepatic Panel TNP [facility] Other Hepatic Panel 3.0 g/dL [facility] Other Lipaseon 09-27-2021 Lipase [Catalytic activity/Vol] 34.41049 U/L Normal 22-51 U/L [facility] Other Lipid Panelon 09-27-2021 Cholesterol [Mass/Vol] 239 mg/dL High 140-2 00 mg/dL [facility] Other Cholesterol in HDL [Mass/Vol] 54 mg/dL Normal 35-85 mg/dL [facility] Other Cholesterol in LDL Elph Qn 162 mg/dL High 0-100 mg/dL [facility] Other Cholesterol.total/Chol esterol in HDL [Mass ratio] 4.4 {ratio} <5.0 [facility] Other Lipid Panel 117 mg/dL Normal 35-149 mg/dL [facility] Other Lipid Panel 23 mg/dL [facility] Other PAP ACOG PANEL 2: 30 to 65on 07-18-2021 . . Normal [facility] Comment on above: Result Comment: Perf ormed at: WB Performed By: #### 4 [id number] #### [facility] [address] [address] [address] Jorge Luis Ferris Age Gdln ACOG Testing 30-65 Normal [facility] Comment on above: Performed By: #### 4 [id number] #### [facility] [address] [address] [address] Jorge Luis Ferris DIAGNOSIS: Comment Normal [facility] Comment on above: Result Comment: NEGA TIVE FOR INTRAEPITHELIAL LESION OR MALIGNANCY. Performed at: WB Performed By: #### 4 [id number] #### [facility] [address] [place] [address] Dr. Jorge Luis Ferris HPV Aptima Negative Normal Negative [facility] Comment on above: Result Comment: This nucleic acid amplification test detects fourteen high-risk HPV types (16,18,31,33,35,39,45,51,52,56,58,59,66,68) without differentiation. Performed at: =G Performed By: #### 4 [id number] #### [facility] [address] [place] [address] Dr. Jorge Luis Ferris Methodology: Comment Normal [facility] Comment on above: Result Comment: This liquid based ThinPrep(R) pap test was screened with the use of an image guided system. Performed at: WB Performed By: #### [id number] #### [facility] [address] [place] [address] Dr. Jorge Luis Ferris Note: Comment Normal [facility] Comment on above: Result Comment: The Pap smear is a screening test designed to aid in the detection of premalignant and malignant conditions of the uterine cervix. It is not a diagnostic procedure and should not be used as the sole means of detecting cervical cancer. Both false-positive and false-negative reports do occur. . Performed at: WB Performed By: #### 4 [id number] #### [facility] [address] [place] [address] Dr. Jorge Luis Ferris Performed by: Comment Normal [facility] Comment on above: Result Comment: Annalise Franz, Boiler Repairman (ASCP) Performed at: WB Performed By: #### 4 [id number] #### [facility] [address] [place] [address] Dr. Jorge Luis Ferris Specimen adequacy: Comment Normal [facility] Comment on above: Result Comment: Sati sfactory for evaluation. Endocervical and/or squamous metaplastic cells (endocervical component) are present. Areas of partially obscuring blood are present. Performed at: WB Performed By: #### 4 [id number] #### [facility] [address] [place] [address] Dr. Jorge Luis Ferris [facility] SARS-CoV-2 (COVID-19) RNA VANNESA+probe Ql (Unsp spec) Not detected Normal NOT DETECTED [facility] Comment on above: Result Comment: This test is not yet approved or cleared by the [place] FDA. When there are no FDA-approved or cleared tests available, and other criteria are met, FDA can make tests available under an emergency access mechanism called an Emergency Use Authorization (EUA). The EUA for this test is supported by the Paper Coating Machine Operator of Health and Human Service's (HHS's) [...] consistent with SARS-CoV-2. Performed By: #### C [facility] #### [facility] [address] [place] [address] Dr. Jorge Luis Ferris Vital Signs Date Time Vital Sign Value Performing Clinician Facility 12-02-2023 09:290400 Body height 152.4 cm CIG[employer] INSPECTORBebeto [employer] Work Phone: [facility] 12-02-2023 09:29-0400 Body mass index (BMI) [Ratio] 47.6 kg/m2 [employer]ebeto [employer] Work Phone: [facility] 12-02-2023 09:29-0400 Body temperature 97.2 [degF] [employer] INSPECTORBebeto [employer] Work Phone: [facility] 12-02-2023 09:290400 Body weight 110.67 kg RUTH ANN [employer] Work Phone: [facility] 12-02-2023 09:29-0400 Diastolic blood pressure 84 mm[Hg] CIGAR INSPECTOR Juanito Easterwood Work Phone: [facility] 12-02-2023 09:29-0400 Heart rate 50 /min [employer]AR INS[employer]OR Juanito Easterwood Work Phone: [facility] 12-02-2023 09:29-0400 Respiratory rate 20 /min CIGAR INSPECTOR Juanito Easterwood Work Phone: [facility] 12-02-2023 09:29-0400 SaO2% (BldA) [Mass fraction] 99 % CIGAR INSPECTOR Juanito Easterwood Work Phone: [facility] 12-02-2023 09:29-0400 Systolic blood pressure 136 mm[Hg] CIGAR INSPECTOR Juanito Easterwood Work Phone: [facility] 11-02-2023 13:39-0400 Body height 152.4 cm CIGAR INSPECTOR Juanito Easterwood Work Phone: [facility] 11-02-2023 13:39-0400 Body mass index (BMI) [Ratio] 47.5 kg/m2 [employer] INSPECTOR Juanito Easterwood Work Phone: [facility] 11-02-2023 13:39-0400 Body temperature 98.1 [degF] CIGAR INSPECTOR Juanito Easterwood Work Phone: [facility] 11-02-2023 13:39-0400 Body weight 110.39 kg CIGAR INSPECTOR Juanito Easterwood Work Phone: [facility] 11-02-2023 13:39-0400 Diastolic blood pressure 108 mm[Hg] CIGAR INSPECTOR Juanito Easterwood Work Phone: [facility] 11-02-2023 13:39-0400 Heart rate 81 /min CIGAR INSPECTOR Juanito Easterwood Work Phone: [facility] 11-02-2023 13:39-0400 Respiratory rate 18 /min CIGAR INSPECTOR Juanito Easterwood Work Phone: [facility] 11-02-2023 13:39-0400 SaO2% (BldA) [Mass fraction] 99 % CIGAR INSPECTOR Juanito Lisaermel Work Phone: [facility] 11-02-2023 13:39-0400 Systolic blood pressure 162 mm[Hg] CIGAR INSPECTOR Juanito Easterwood Work Phone: [facility] 10-23-2023 22:35-0400 Body temperature 98.24 [degF] Jairylinn [facility] 10-23-2023 22:35-0400 Diastolic blood pressure 97 mm[Hg] Kaylinn [facility] 10-23-2023 22:35-0400 Heart rate 85 /min Jairylinn [facility] 10-23-2023 22:35-0400 Respiratory rate 16 /min Jairylinn [facility] 10-23-2023 22:35-0400 SaO2% (BldA) [Mass fraction] 100 % Jairylinn [facility] 10-23-2023 22:35-0400 Systolic blood pressure 164 mm[Hg] Jairylinn [facility] 10-07-2023 09:26-0400 Body height 152.4 cm CIGAR INSPECTORBebeto Lisaermel Work Phone: [facility] 10-07-2023 09:26-0400 Body mass index (BMI) [Ratio] 46.5 kg/m2 CIGAR INSPECTOR Juanito Easterwood Work Phone: [facility] 10-07-2023 09:26-0400 Body temperature 97.2 [degF] CIGAR INSPECTOR Juanito Eastermel Work Phone: [facility] 10-07-2023 09:26-0400 Body weight 107.95 kg CIGAR INSPECTOR Juanito Easterwood Work Phone: [facility] 10-07-2023 09:26-0400 Diastolic blood pressure 84 mm[Hg] CIGAR INSPECTOR Juanito Easterwood Work Phone: [facility] 10-07-2023 09:26-0400 Heart rate 75 /min CIGAR INSPECTOR Juanito Easterwood Work Phone: [facility] 10-07-2023 09:26-0400 Respiratory rate 20 /min CIGAR INSPECTOR Juanito Easterwood Work Phone: [facility] 10-07-2023 09:26-0400 SaO2% (BldA) [Mass fraction] 99 % CIGAR INSPECTOR Juanito Easterwood Work Phone: [facility] 10-07-2023 09:26-0400 Systolic blood pressure 136 mm[Hg] CIGAR INSPECTOR Juanito Easterwood Work Phone: [facility] 10-03-2023 22:30-0400 Body temperature 98.6 [degF] CIGAR INSPECTOR Juanito Easterwood Work Phone: [facility] 10-03-2023 22:30-0400 Diastolic blood pressure 90 mm[Hg] CIGAR INSPECTOR Juanito Easterwood Work Phone: [facility] 10-03-2023 22:30-0400 Heart rate 78 /min CIGAR INSPECTOR Juanito Easterwood Work Phone: [facility] 10-03-2023 22:30-0400 Respiratory rate 20 /min CIGAR INSPECTOR Juanito Easterwood Work Phone: [facility] 10-03-2023 22:30-0400 SaO2% (BldA) [Mass fraction] 99 % CIGAR INSPECTOR Juanito Easterwood Work Phone: [facility] 10-03-2023 22:30-0400 Systolic blood pressure 165 mm[Hg] CIGAR INSPECTOR Juanito Easterwood Work Phone: [facility] 10-03-2023 21:05-0400 Body height 152.4 cm CIGAR INSPECTOR Juanito Easterwood Work Phone: [facility] 10-03-2023 21:05-0400 Body weight 108.7 kg CIGAR INSPECTOR Juanito Easterwood Work Phone: [facility] 08-26-2023 09:42-0400 Body height 152.4 cm CIGAR INSPECTOR Juanito Easterwood Work Phone: [facility] 08-26-2023 09:42-0400 Body mass index (BMI) [Ratio] 46.6 kg/m2 CIGAR INSPECTOR Juanito Easterwood Work Phone: [facility] 08-26-2023 09:42-0400 Body temperature 97.9 [degF] CIGAR INSPECTOR Juanito Easterwood Work Phone: [facility] 08-26-2023 09:42-0400 Body weight 108.4 kg CIGAR INSPECTOR Juanito Easterwood Work Phone: [facility] 08-26-2023 09:42-0400 Diastolic blood pressure 82 mm[Hg] CIGAR INSPECTOR Juanito Easterwood Work Phone: [facility] 08-26-2023 09:42-0400 Heart rate 75 /min CIGAR INSPECTOR Juanito Easterwood Work Phone: [facility] 08-26-2023 09:42-0400 Respiratory rate 20 /min CIGAR INSPECTOR Juanito Easterwood Work Phone: [facility] 08-26-2023 09:42-0400 SaO2% (BldA) [Mass fraction] 99 % CIGAR INSPECTOR Juanito Easterwood Work Phone: [facility] 08-26-2023 09:42-0400 Systolic blood pressure 128 mm[Hg] CIGAR INSPECTOR Juanito Easterwood Work Phone: [facility] 07-14-2023 08:17-0400 Body height 152.4 cm CIGAR INSPECTOR Juanito Easterwood Work Phone: [facility] 07-14-2023 08:17-0400 Body mass index (BMI) [Ratio] 44.6 kg/m2 CIGAR INSPECTOR Juanito Easterwood Work Phone: [facility] 07-14-2023 08:17-0400 Body temperature 98 [degF] CIGAR INSPECTOR Juanito Easterwood Work Phone: [facility] 07-14-2023 08:17-0400 Body weight 103.64 kg CIGAR INSPECTOR Juanito Easterwood Work Phone: [facility] 07-14-2023 08:17-0400 Diastolic blood pressure 88 mm[Hg] CIGAR INSPECTOR Juanito Easterwood Work Phone: [facility] 07-14-2023 08:17-0400 Heart rate 88 /min CIGAR INSPECTOR Juanito Easterwood Work Phone: [facility] 07-14-2023 08:17-0400 Respiratory rate 20 /min CIGAR INSPECTOR Juanito Easterwood Work Phone: [facility] 07-14-2023 08:17-0400 SaO2% (BldA) [Mass fraction] 98 % CIGAR INSPECTOR Juanito Easterwood Work Phone: [facility] 07-14-2023 08:17-0400 Systolic blood pressure 130 mm[Hg] CIGAR INSPECTOR Juanito Easterwood Work Phone: [facility] 06-04-2023 11:48-0500 Body height 152.4 cm CIGAR INSPECTOR Juanito Easterwood Work Phone: [facility] 06-04-2023 11:48-0500 Body mass index (BMI) [Ratio] 44.9 kg/m2 CIGAR INSPECTOR Juanito Easterwood Work Phone: [facility] 06-04-2023 11:48-0500 Body temperature 98.3 [degF] CIGAR INSPECTOR Juanito Easterwood Work Phone: [facility] 06-04-2023 11:48-0500 Body weight 104.32 kg CIGAR INSPECTOR Juanito Easterwood Work Phone: [facility] 06-04-2023 11:48-0500 Diastolic blood pressure 84 mm[Hg] CIGAR INSPECTOR Juanito Easterwood Work Phone: [facility] 06-04-2023 11:48-0500 Heart rate 83 /min CIGAR INSPECTOR Juanito Easterwood Work Phone: [facility] 06-04-2023 11:48-0500 Respiratory rate 18 /min CIGAR INSPECTOR Juanito Easterwood Work Phone: [facility] 06-04-2023 11:48-0500 SaO2% (BldA) [Mass fraction] 98 % CIGAR INSPECTOR Juanito Easterwood Work Phone: [facility] 06-04-2023 11:48-0500 Systolic blood pressure 124 mm[Hg] CIGAR INSPECTOR Juanito Easterwood Work Phone: [facility] 05-13-2023 22:30-0500 Diastolic blood pressure 76 mm[Hg] CIGAR INSPECTOR Juanito Easterwood Work Phone: [facility] 05-13-2023 22:30-0500 Heart rate 78 /min CIGAR INSPECTOR Juanito Easterwood Work Phone: [facility] 05-13-2023 22:30-0500 Respiratory rate 16 /min CIGAR INSPECTOR Juanito Easterwood Work Phone: [facility] 05-13-2023 22:30-0500 SaO2% (BldA) [Mass fraction] 97 % CIGAR INSPECTOR Juanito Easterwood Work Phone: [facility] 05-13-2023 22:30-0500 Systolic blood pressure 132 mm[Hg] CIGAR INSPECTOR Juanito Easterwood Work Phone: [facility] 05-13-2023 18:46-0500 Body height 152.4 cm CIGAR INSPECTOR Juanito Easterwood Work Phone: [facility] 05-13-2023 18:46-0500 Body temperature 98.7 [degF] CIGAR INSPECTOR Juanito Easterwood Work Phone: [facility] 05-13-2023 18:46-0500 Body weight 104 kg CIGAR INSPECTOR Juanito Easterwood Work Phone: [facility] 05-12-2023 11:08-0500 Body height 152.4 cm CIGAR INSPECTOR Juanito Easterwood Work Phone: [facility] 05-12-2023 11:08-0500 Body mass index (BMI) [Ratio] 44.5 kg/m2 CIGAR INSPECTOR Juanito Easterwood Work Phone: [facility] 05-12-2023 11:08-0500 Body temperature 97.4 [degF] CIGAR INSPECTOR Juanito Easterwood Work Phone: [facility] 05-12-2023 11:08-0500 Body weight 103.41 kg CIGAR INSPECTOR Juanito Easterwood Work Phone: [facility] 05-12-2023 11:08-0500 Diastolic blood pressure 80 mm[Hg] CIGAR INSPECTOR Juanito Easterwood Work Phone: [facility] 05-12-2023 11:08-0500 Heart rate 74 /min CIGAR INSPECTOR Juanito Easterwood Work Phone: [facility] 05-12-2023 11:08-0500 Respiratory rate 20 /min CIGAR INSPECTOR Juanito Easterwood Work Phone: [facility] 05-12-2023 11:08-0500 SaO2% (BldA) [Mass fraction] 99 % CIGAR INSPECTOR Juanito Easterwood Work Phone: [facility] 05-12-2023 11:08-0500 Systolic blood pressure 126 mm[Hg] CIGAR INSPECTOR Juanito Easterwood Work Phone: [facility] 05-07-2023 21:44-0500 Body temperature 98.2 [degF] CIGAR INSPECTOR Juanito Easterwood Work Phone: [facility] 05-07-2023 21:44-0500 Diastolic blood pressure 75 mm[Hg] CIGAR INSPECTOR Juanito Easterwood Work Phone: [facility] 05-07-2023 21:44-0500 Heart rate 71 /min CIGAR INSPECTOR Juanito Easterwood Work Phone: [facility] 05-07-2023 21:44-0500 Respiratory rate 18 /min CIGAR INSPECTOR Juanito Easterwood Work Phone: [facility] 05-07-2023 21:44-0500 SaO2% (BldA) [Mass fraction] 98 % CIGAR INSPECTOR Juanito Easterwood Work Phone: [facility] 05-07-2023 21:44-0500 Systolic blood pressure 127 mm[Hg] CIGAR INSPECTOR Juanito Easterwood Work Phone: [facility] 05-07-2023 19:32-0500 Body height 152.4 cm CIGAR INSPECTOR Juanito Easterwood Work Phone: [facility] 05-07-2023 19:32-0500 Body weight 103.7 kg CIGAR INSPECTOR Juanito Easterwood Work Phone: [facility] 05-05-2023 10:20-0500 Body mass index (BMI) [Ratio] 44.55 kg/m2 Melissa Dorsey B[employer]IST Work Phone: [facility] 05-05-2023 10:20-0500 Body temperature 97.7 [degF] Melissa Dorsey [employer] G[employer] SPECIALIST Work Phone: [facility] 05-05-2023 10:20-0500 Body weight 104.33 kg Melissa Sunita [employer] G[employer]IST Work Phone: [facility] 05-05-2023 10:20-0500 Diastolic blood pressure 62 mm[Hg] Melissaosmel Dorsey B[employer] G[employer] SPECIALIST Work Phone: [facility] 05-05-2023 10:20-0500 Heart rate 81 /min Melissaosmel Dorsey [employer] G[employer] SPECIALIST Work Phone: [facility] 05-05-2023 10:20-0500 SaO2% (BldA) [Mass fraction] 97 % Melissa Sunita B[employer] G[employer] SPECIALIST Work Phone: [facility] 05-05-2023 10:20-0500 Systolic blood pressure 124 mm[Hg] Melissa Sunita B[employer] G[employer] SPECIALIST Work Phone: [facility] 03-28-2023 00:51-0500 Diastolic blood pressure 71 mm[Hg] CIGAR INSPECTOR Juanito Easterwood Work Phone: [facility] 03-28-2023 00:51-0500 Heart rate 76 /min CIGAR INSPECTOR Juanito Easterwood Work Phone: [facility] 03-28-2023 00:51-0500 Respiratory rate 20 /min CIGAR INSPECTOR Juanito Easterwood Work Phone: [facility] 03-28-2023 00:51-0500 SaO2% (BldA) [Mass fraction] 98 % CIGAR INSPECTOR Juanito Easterwood Work Phone: [facility] 03-28-2023 00:51-0500 Systolic blood pressure 122 mm[Hg] CIGAR INSPECTOR Juanito Easterwood Work Phone: [facility] 03-27-2023 21:15-0500 Body height 152.4 cm CIGAR INSPECTOR Juanito Easterwood Work Phone: [facility] 03-27-2023 21:15-0500 Body temperature 98 [degF] CIGAR INSPECTOR Juanito Easterwood Work Phone: [facility] 03-27-2023 21:15-0500 Body weight 99.79 kg RUTH ANN [facility] [place] Work Phone: [facility] 02-17-2023 09:30-0500 Body height 152.4 cm Uriah Susanne Other [facility] 02-17-2023 09:30-0500 Body mass index (BMI) [Ratio] 43.49 kg/m2 Uriah Susanne Other [employer] Other 02-17-2023 09:30-0500 Body weight 101.02 kg Uriah Skinner Other [facility] Other 02-17-2023 09:30-0500 Body weight 101.01 kg RUTH ANN [employer] Work Phone: [facility] 02-17-2023 09:30-0500 Diastolic blood pressure 81 mm[Hg] Uriah Skinner Other [facility] 02-17-2023 09:30-0500 Respiratory rate 18 /min Uriah Skinner Other [facility] Other 02-17-2023 09:30-0500 SaO2% (BldA) [Mass fraction] 98 % Uriah Skinner Other [facility] Other 02-17-2023 09:30-0500 Systolic blood pressure 117 mm[Hg] Uriah Skinner Other [facility] 12-04-2022 14:00-0400 Body height 152.4 cm Elinor Workman Other [facility] Other 11-24-2022 11:00-0400 Body height 152.4 cm Uriah Skinner Other [facility] Other 11-24-2022 11:00-0400 Body mass index (BMI) [Ratio] 45.64 kg/m2 Uriah Skinner Other [facility] Other 11-24-2022 11:00-0400 Body weight 106.01 kg Uriah Skinner Other [facility] Other 11-24-2022 11:00-0400 Diastolic blood pressure 81 mm[Hg] Uriah Skinner Other [facility] Other 11-24-2022 11:00-0400 Respiratory rate 18 /min Uriah Skinner Other [facility] Other 11-24-2022 11:00-0400 SaO2% (BldA) [Mass fraction] 97 % Uriah Skinner Other [facility] Other 11-24-2022 11:00-0400 Systolic blood pressure 125 mm[Hg] Uriah Skinner Other [facility] Other 08-11-2022 14:00-0400 Body height 152.4 cm [employer] Other [facility] Other 08-11-2022 14:00-0400 Body mass index (BMI) [Ratio] 46.28 kg/m2 [employer] Other [facility] Other 08-11-2022 14:00-0400 Body temperature 97.6 [degF] Juanito [employer] Other [facility] Other 08-11-2022 14:00-0400 Body weight 107.5 kg Juanito [employer] Other [facility] Other 08-11-2022 14:00-0400 Diastolic blood pressure 76 mm[Hg] Juanito Easterwood Other [facility] Other 08-11-2022 14:00-0400 Respiratory rate 20 /min Juanito Easterwood Other [facility] Other 08-11-2022 14:00-0400 SaO2% (BldA) [Mass fraction] 98 % Juanito Easterwood Other [facility] Other 08-11-2022 14:00-0400 Systolic blood pressure 122 mm[Hg] Juanito Easterwood Other [email or web address] Other 07-28-2022 15:05-0400 Diastolic blood pressure 76 mm[Hg] CIGAR INSPECTOR Juanito Easterwood Work Phone: [facility] 07-28-2022 15:05-0400 Heart rate 90 /min CIGAR INSPECTOR Juanito Easterwood Work Phone: [facility] 07-28-2022 15:05-0400 Respiratory rate 16 /min CIGAR INSPECTOR Juanito Easterwood Work Phone: [facility] 07-28-2022 15:05-0400 SaO2% (BldA) [Mass fraction] 95 % CIGAR INSPECTOR Juanito Easterwood Work Phone: [facility] 07-28-2022 15:05-0400 Systolic blood pressure 119 mm[Hg] CIGAR INSPECTOR Juanito Easterwood Work Phone: [facility] 07-28-2022 13:36-0400 Body height 152.4 cm CIGAR INSPECTOR Juanito Easterwood Work Phone: [facility] 07-28-2022 13:36-0400 Body weight 107.5 kg CIGAR INSPECTOR Juanito Deleon Work Phone: [facility] 07-14-2022 10:45-0400 Body height 152.4 cm Juanito Easterwood Other [employer] Other 07-14-2022 10:45-0400 Body mass index (BMI) [Ratio] 46.28 kg/m2 Juanito Sloanerwood Other [facility] Other 07-14-2022 10:45-0400 Body temperature 98.2 [degF] Juanito Eastermel Other [facility] Other 07-14-2022 10:45-0400 Body weight 107.5 kg Juanito Sloanermel Other [facility] Other 07-14-2022 10:45-0400 Diastolic blood pressure 70 mm[Hg] Juanito Easterwood Other [facility] Other 07-14-2022 10:45-0400 Respiratory rate 20 /min Juanito Sloanerwood Other [facility] Other 07-14-2022 10:45-0400 SaO2% (BldA) [Mass fraction] 98 % Juanito Easterwood Other [facility] Other 07-14-2022 10:45-0400 Systolic blood pressure 128 mm[Hg] Juanito Easterwood Other [facility] Other 06-23-2022 11:00-0400 Body height 152.4 cm Juanito Easterwood Other [facility] Other 06-23-2022 11:00-0400 Body mass index (BMI) [Ratio] 46.09 kg/m2 Juanito Easterwood Other [facility] Other 06-23-2022 11:00-0400 Body temperature 98.3 [degF] Juanito Sloanerwood Other [facility] Other 06-23-2022 11:00-0400 Body weight 107.05 kg Juanito Lisaermel Other [facility] Other 06-23-2022 11:00-0400 Diastolic blood pressure 82 mm[Hg] Juanito [employer] Other [facility] Other 06-23-2022 11:00-0400 Respiratory rate 20 /min Juanito [employer] Other [facility] Other 06-23-2022 11:00-0400 SaO2% (BldA) [Mass fraction] 98 % Juanito [employer] Other [facility] Other 06-23-2022 11:00-0400 Systolic blood pressure 130 mm[Hg] Juanito [employer] Other [facility] Other 06-19-2022 15:15-0400 Body height 152.4 cm Johann Moe Other [facility] Other 06-19-2022 15:15-0400 Body mass index (BMI) [Ratio] 46.48 kg/m2 Johann Moe Other [facility] Other 06-19-2022 15:15-0400 Body weight 107.96 kg Johann Moe Other [facility] Other 06-19-2022 15:15-0400 Diastolic blood pressure 91 mm[Hg] Johann Moe Other [employer] Other 06-19-2022 15:15-0400 Respiratory rate 20 /min Johann Moe Other [employer] Other 06-19-2022 15:15-0400 Systolic blood pressure 152 mm[Hg] Johann Moe Other [facility] Other 05-01-2022 11:00-0500 Body height 152.4 cm Juanito [employer] Other [facility] Other 05-01-2022 11:00-0500 Body mass index (BMI) [Ratio] 45.7 kg/m2 Juanito [employer] Other [facility] Other 05-01-2022 11:00-0500 Body temperature 97.5 [degF] Juanito [employer] Other [facility] Other 05-01-2022 11:00-0500 Body weight 106.14 kg Juanito [employer] Other [facility] Other 05-01-2022 11:00-0500 Diastolic blood pressure 78 mm[Hg] Juanito Easterwood Other [facility] Other 05-01-2022 11:00-0500 Respiratory rate 20 /min Juanito [employer] Other [facility] Other 05-01-2022 11:00-0500 SaO2% (BldA) [Mass fraction] 99 % Juanito Easterwood Other [facility] Other 05-01-2022 11:00-0500 Systolic blood pressure 122 mm[Hg] Juanito Easterwood Other [employer] Other 04-03-2022 11:00-0500 Body height 152.4 cm Juanito Easterwood Other [employer] Other 04-03-2022 11:00-0500 Body mass index (BMI) [Ratio] 46.67 kg/m2 Juanito Easterwood Other [employer] Other 04-03-2022 11:00-0500 Body temperature 98.2 [degF] Juanito Easterwood Other [employer] Other 04-03-2022 11:00-0500 Body weight 108.41 kg Juanito Sloanerwood Other [employer] Other 04-03-2022 11:00-0500 Diastolic blood pressure 70 mm[Hg] Juanito Easterwood Other [employer] Other 04-03-2022 11:00-0500 Respiratory rate 20 /min Juanito Easterwood Other [employer] Other 04-03-2022 11:00-0500 SaO2% (BldA) [Mass fraction] 99 % Juanito Easterwood Other [employer] Other 04-03-2022 11:00-0500 Systolic blood pressure 118 mm[Hg] Juanito Easterwood Other [employer] Other 01-28-2022 14:30-0400 Body height 152.4 cm Juanito Easterwood Other [employer] Other 01-28-2022 14:30-0400 Body mass index (BMI) [Ratio] 48.43 kg/m2 Juanito Easterwood Other [facility] Other 01-28-2022 14:30-0400 Body temperature 96.1 [degF] Juanito Easterwood Other [employer] Other 01-28-2022 14:30-0400 Body weight 112.49 kg Juanito Easterwood Other [employer] Other 01-28-2022 14:30-0400 Diastolic blood pressure 84 mm[Hg] Juanito Easterwood Other [employer] Other 01-28-2022 14:30-0400 Respiratory rate 20 /min Juanito Easterwood Other [facility] Other 01-28-2022 14:30-0400 SaO2% (BldA) [Mass fraction] 99 % Juanito Easterwood Other [facility] Other 01-28-2022 14:30-0400 Systolic blood pressure 126 mm[Hg] Juanito Easterwood Other [employer] Other 10-14-2021 14:00-0400 Body height 152.4 cm Juanito Easterwood Other [employer] Other 10-14-2021 14:00-0400 Body temperature 97.1 [degF] Juanito Easterwood Other [employer] Other 10-14-2021 14:00-0400 Diastolic blood pressure 80 mm[Hg] Juanito Easterwood Other [facility] Other 10-14-2021 14:00-0400 Respiratory rate 18 /min Juanito Easterwood Other [facility] Other 10-14-2021 14:00-0400 SaO2% (BldA) [Mass fraction] 99 % Juanito Easterwood Other [employer] Other 10-14-2021 14:00-0400 Systolic blood pressure 122 mm[Hg] Juanito Easterwood Other [facility] Other 09-26-2021 16:30-0400 Body height 152.4 cm Juanito Easterwood Other [employer] Other 09-26-2021 16:30-0400 Body mass index (BMI) [Ratio] 47.45 kg/m2 Juanito Easterwood Other [employer] Other 09-26-2021 16:30-0400 Body temperature 98.1 [degF] Juanito Easterwood Other [employer] Other 09-26-2021 16:30-0400 Body weight 110.22 kg Juanito Easterwood Other [employer] Other 09-26-2021 16:30-0400 Diastolic blood pressure 100 mm[Hg] Juanito Easterwood Other [employer] Other 09-26-2021 16:30-0400 Respiratory rate 20 /min Juanito Easterwood Other [employer] Other 09-26-2021 16:30-0400 SaO2% (BldA) [Mass fraction] 99 % Juanito Easterwood Other [employer] Other 09-26-2021 16:30-0400 Systolic blood pressure 148 mm[Hg] Juanito Easterwood Other [facility] Other 09-17-2021 10:30-0400 Body height 152.4 cm Juanito Easterwood Other [employer] Other 09-17-2021 10:30-0400 Body mass index (BMI) [Ratio] 46.87 kg/m2 Juanito Easterwood Other [employer] Other 09-17-2021 10:30-0400 Body temperature 98 [degF] Juanito Easterwood Other [employer] Other 09-17-2021 10:30-0400 Body weight 108.86 kg Juanito Easterwood Other [employer] Other 09-17-2021 10:30-0400 Diastolic blood pressure 64 mm[Hg] Juanito Easterwood Other [employer] Other 09-17-2021 10:30-0400 Respiratory rate 20 /min Juanito Easterwood Other [facility] Other 09-17-2021 10:30-0400 SaO2% (BldA) [Mass fraction] 99 % Juanito Easterwood Other [facility] Other 09-17-2021 10:30-0400 Systolic blood pressure 128 mm[Hg] Juanito Easterwood Other [employer] Other 09-02-2021 10:30-0400 Body height 152.4 cm Juanito Easterwood Other [facility] Other 09-02-2021 10:30-0400 Body mass index (BMI) [Ratio] 46.87 kg/m2 Juanito Sloanerwood Other [facility] Other 09-02-2021 10:30-0400 Body temperature 98.2 [degF] Juanito Easterwood Other [employer] Other 09-02-2021 10:30-0400 Body weight 108.86 kg Juanito Deleon Other [employer] Other 09-02-2021 10:30-0400 Diastolic blood pressure 84 mm[Hg] Juanito Easterwood Other [employer] Other 09-02-2021 10:30-0400 Respiratory rate 20 /min Juanito Sloanermel Other [facility] Other 09-02-2021 10:30-0400 SaO2% (BldA) [Mass fraction] 98 % Juanito Easterwood Other [facility] Other 09-02-2021 10:30-0400 Systolic blood pressure 128 mm[Hg] Juanito Easterwood Other [employer] Other Encounters Encounter Date Encounter Type Care Provider Facility Start: 12-02-2023 End: 12-02-2023 ambulatory CIGAR INSPECTOR Juanito Deleon Work Phone: [facility] Work Phone: Start: 12-02-2023 End: 12-02-2023 Patient encounter procedure CIGAR INSPECTOR Juanito Deleon Work Phone: [facility] Work Phone: Start: 11-20-2023 End: 11-20-2023 Patient encounter procedure CIGAR INSPECTOR Juanito Deleon Work Phone: [facility] Work Phone: Start: 11-20-2023 End: 11-20-2023 ambulatory CIGAR INSPECTOR Juanito Lisamel Work Phone: [facility] Work Phone: Start: 11-02-2023 End: 11-02-2023 ambulatory [facility] JUANITO [facility]BARTOW [place] Start: 11-02-2023 End: 11-02-2023 Patient encounter procedure JUANITO DELEON [facility] Start: 11-02-2023 End: 11-02-2023 ambulatory CIGAR INSPECTOR Juanito Lisamel Work Phone: [facility] Work Phone: Start: 11-02-2023 End: 11-02-2023 Patient encounter procedure CIGAR INSPECTOR Juanito Deleon Work Phone: [facility] Work Phone: Start: 10-23-2023 End: 10-23-2023 Emergency department patient visit Wesly Lopez [facility] Start: 10-07-2023 End: 10-07-2023 amb[facility] Work Phone: Start: 10-07-2023 End: 10-07-2023 Patient encounter procedure RUTH ANN Deleon Work Phone: [facility] Work Phone: Start: 10-03-2023 End: 10-03-2023 Emergency department patient visit RUTH ANN Deleon Work Phone: [facility] Work Phone: Start: 08-26-2023 End: 08-26-2023 ambulatory CIGAR INSPECTOR Juanito Deleon Work Phone: [facility] Work Phone: Start: 08-26-2023 End: 08-26-2023 Patient encounter procedure RUTH ANN Deleon Work Phone: [facility] Work Phone: Start: 08-12-2023 End: 08-12-2023 ambulatory MOON OLEA Not Available Start: 08-12-2023 Non-patient / Non-visit RUTH ANN Deleon Work Phone: [facility] Work Phone: Start: 07-30-2023 Telephone encounter Jude yost PA-C Work Phone: Otolaryngology Comment on above: Letter Start: 07-23-2023 End: 07-23-2023 ambulatory JUDE APONTE Facility:[facility] Start: 07-23-2023 End: 07-23-2023 Patient encounter procedure Jude Aponte PA-C Work Phone: Otolaryngology Comment on above: H/O otitis media (Pr imary Dx); H/O acute otitis externa Start: 07-14-2023 End: 07-14-2023 ambulatory CIGAR INSPECTOR Juanito Lisaermel Work Phone: [facility] Work Phone: Start: 07-14-2023 End: 07-14-2023 Patient encounter procedure CIGAR INSPECTORBebeto Deleon Work Phone: [facility] Work Phone: Start: 06-04-2023 End: 06-04-2023 Patient encounter procedure RUTH ANN Deleon Work Phone: [facility] Work Phone: Start: 05-13-2023 End: 05-13-2023 Emergency department patient visit CIGAR INSPECTORBebeto Deleon Work Phone: [facility] Work Phone: Start: 05-12-2023 End: 05-12-2023 ambulatory RUTH ANN Deleon Work Phone: [facility] Work Phone: Start: 05-12-2023 End: 05-12-2023 Patient encounter procedure RUTH ANN Deleon Work Phone: [facility] Work Phone: Start: 05-07-2023 End: 05-08-2023 Emergency department patient visit RUTH ANN Deleon Work Phone: [facility] Work Phone: Start: 05-05-2023 End: 05-05-2023 ambulatory MELISSA DORSEY Not Available Start: 05-05-2023 End: 05-05-2023 Office outpatient visit 25 minutes Melissa Dorsey [employer] Work Phone: [facility] Comment on above: Acute diffuse otitis externa of left ear (Primary Dx) Start: 04-16-2023 End: 04-16-2023 ambulatory CIGAR INSPECTOR Juanito Deleon Work Phone: [facility] Work Phone: Start: 04-16-2023 End: 04-16-2023 Departed Referred CIGAR INSPECTOR Juanito Deleon Work Phone: [facility] Start: 04-10-2023 Patient encounter procedure CIGAR INSPECTOR Juanito Deleon Work Phone: [facility]- Start: 04-02-2023 End: 04-02-2023 ambulatory Juanito Deleon Other [employer] Other Start: 04-02-2023 Telephone encounter Juanito Deleon [facility] Start: 03-27-2023 End: 03-28-2023 Emergency department patient visit CIGAR INSPECTOR Juanito Deleon Work Phone: [facility] Work Phone: Start: 02-23-2023 End: 02-23-2023 ambulatory Juanito Deleon Other [employer] Other Start: 02-23-2023 Telephone encounter Juanito Deleon [facility] Start: 02-18-2023 End: 02-18-2023 ambulatory Juanito Deleon Other [facility] Other Start: 02-18-2023 Telephone encounter Juanito Deleon [facility] Start: 02-17-2023 Follow-up encounter Uriah borg[facility] Start: 02-17-2023 End: 02-17-2023 Patient encounter procedure CIGAR INSPECTOR Juanito Deleon Work Phone: [facility] Start: 02-17-2023 End: 02-17-2023 ambulatory CIGAR INSPECTOR Juanito Deleon Work Phone: [facility] Other Start: 02-17-2023 Registered Recurring CIGAR INSPECTORBebeto Deleon Work Phone: [facility] Work Phone: Start: 02-17-2023 End: 02-17-2023 Patient encounter procedure CIGAR INSPECTOR Juanitozuleyma Lisalaquita Work Phone: [facility] Work Phone: Start: 02-12-2023 End: 02-12-2023 ambulatory Uriah Skinner Other [facility] Other Start: 02-12-2023 Telephone encounter Uriah Skinner [facility] Start: 01-15-2023 End: 01-15-2023 ambulatory Uriah Skinner Other [facility] Other Start: 01-15-2023 Telephone encounter Uriah Skinner [facility] Start: 01-14-2023 End: 01-14-2023 ambulatory Uriah Skinner Other [facility] Other Start: 01-14-2023 Telephone encounter Uriah Skinner [facility] Start: 12-11-2022 End: 12-11-2022 ambulatory Juaintozuleyma Lisaritikamel Other [facility] Other Start: 12-11-2022 PF ONLINE E/M PHY LINDSEYUL - Juanito Deleon [facility] [place] Start: 12-04-2022 End: 12-04-2022 ambulatory Elinor Workman Other [facility] Other Start: 12-04-2022 IBT FOR OBESITY GROU P 2-10 30M Elinor Workman [facility] Start: 11-24-2022 End: 11-24-2022 ambulatory Uriah Skinner Other [facility] Other Start: 11-24-2022 Follow-up encounter Uriah Alan [facility] Start: 11-24-2022 Telephone encounter Juanito Deleon [facility] Start: 10-15-2022 End: 10-15-2022 ambulatory Uriah Skinner Other [facility] Other Start: 10-15-2022 Telephone encounter Uriah Alan [facility] Start: 09-26-2022 End: 09-26-2022 ambulatory Juanito Deleon Other [facility] Other Start: 09-26-2022 Telephone encounter Juanito Deleon [facility] Start: 09-15-2022 End: 09-15-2022 ambulatory Juanito Deleon Other [facility] Other Start: 09-15-2022 Telephone encounter Juanito Deleon [facility] Start: 08-11-2022 End: 08-11-2022 ambulatory Juanito Deleon Other [facility] Other Start: 08-11-2022 Office outpatient visit 25 minutes Juanito Deleon [facility] Start: 07-29-2022 End: 07-29-2022 ambulatory Neftali Snow Other [facility] Other Start: 07-29-2022 Telephone encounter Neftali Alan [facility] Start: 07-28-2022 End: 07-28-2022 Admission to same day surgery center CIGAR INSPECTOR Juanito Lisalaquita Work Phone: [facility] Work Phone: Start: 07-28-2022 End: 07-28-2022 ambulatory CIGAR INSPECTOR Juanito Payton Sloanermel Work Phone: [facility] Work Phone: Start: 07-21-2022 End: 07-21-2022 ambulatory Juanito Easterwood Other [facility] Other Start: 07-21-2022 Telephone encounter Juanito Easterwood [facility] Start: 07-14-2022 End: 07-14-2022 ambulatory Juanito Easterwood Other [facility] Other Start: 07-14-2022 Office outpatient visit 15 minutes Juanito Easterwood [facility] Start: 07-14-2022 Physical examination Juanito Easterwood [facility] Start: 06-23-2022 End: 06-23-2022 ambulatory Juanito Easterwood Other [facility] Other Start: 06-23-2022 Office outpatient visit 40 minutes Juanito Sloanerwood [facility] Start: 06-23-2022 Telephone encounter Moises Oh [facility] Start: 06-19-2022 End: 06-19-2022 ambulatory Johann Moe Other [facility] Other Start: 06-19-2022 FQHC visit new patient Johann Moe [facility] Start: 06-10-2022 End: 06-10-2022 ambulatory Juanito Sloanerwood Other [facility] Other Start: 06-10-2022 Telephone encounter Juanito Sloanerwood [facility] Start: 06-06-2022 End: 06-06-2022 ambulatory [place] SOM Facility:[facility] Start: 05-15-2022 End: 05-15-2022 ambulatory Juanito Easterwood Other [facility] Other Start: 05-15-2022 Telephone encounter Juanito Easterwood [facility] Start: 05-08-2022 End: 05-09-2022 ambulatory JUANITO EASTERWOOD Facility:[facility] Start: 05-01-2022 End: 05-01-2022 ambulatory Juanito Easterwood Other [facility] Other Start: 05-01-2022 Office outpatient visit 15 minutes Juanito Easterwood [facility] Start: 04-04-2022 End: 04-04-2022 ambulatory Juanito Easterwood Other [facility] Other Start: 04-04-2022 Telephone encounter Juanito Easterwood [facility] Start: 04-03-2022 End: 04-03-2022 ambulatory Juanito Easterwood Other [facility] Other Start: 04-03-2022 Office outpatient visit 25 minutes Juanito Sloanerwood [facility] Start: 03-19-2022 End: 03-19-2022 ambulatory Juanito Sloanerwood Other [facility] Other Start: 03-19-2022 PF ONLINE E/M PHY V[facility] - Juanito Easterwood [facility] Start: 03-13-2022 End: 03-13-2022 ambulatory Juanito Sloanerwood Other [facility] Other Start: 03-13-2022 Telephone encounter Juanito Sloanerwood [facility] Start: 03-12-2022 End: 03-12-2022 ambulatory Juanito Easterwood Other [facility] Other Start: 03-12-2022 Telephone encounter Juanito Easterwood [facility] Start: 03-03-2022 End: 03-03-2022 ambulatory Johann Moe Other [facility] Other Start: 03-03-2022 Telephone encounter Johann Moe [facility] Start: 02-24-2022 End: 02-24-2022 ambulatory Juanito Easterwood Other [facility] Other Start: 02-24-2022 Telephone encounter Juanito Easterwood [facility] Start: 02-17-2022 End: 02-17-2022 ambulatory Juanito Easterwood Other [facility] Other Start: 02-17-2022 Telephone encounter Juanito Easterwood [facility] Start: 02-06-2022 End: 02-06-2022 ambulatory Juanito Easterwood Other [facility] Other Start: 02-06-2022 Telephone encounter Juanito Easterwood [facility] Start: 02-05-2022 End: 02-06-2022 ambulatory JUANITO EASTERWOOD Facility:[facility] Start: 02-04-2022 End: 02-05-2022 ambulatory JUANITO EASTERWOOD Facility:[facility] Start: 01-28-2022 End: 01-28-2022 ambulatory Juanito Easterwood Other [facility] Other Start: 01-28-2022 Office outpatient visit 40 minutes Juanito Easterwood [facility] Start: 01-22-2022 End: 01-22-2022 ambulatory Juanito Easterwood Other [facility] Other Start: 01-22-2022 Telephone encounter Juanito Easterwood [facility] Start: 01-20-2022 End: 01-20-2022 ambulatory Juanito Easterwood Other [facility] Other Start: 01-20-2022 Telephone encounter Juanito Easterwood [facility] Start: 01-16-2022 End: 01-16-2022 ambulatory Juanito Easterwood Other [facility] Other Start: 01-16-2022 Telephone encounter Juanito Easterwood [facility] [place] Start: 01-13-2022 End: 01-13-2022 ambulatory Natalie Rishi Other [facility] Other Start: 01-13-2022 Telephone encounter Natalie Blackwell [facility] Start: 12-19-2021 End: 12-19-2021 ambulatory Juanito Easterwood Other [facility] Other Start: 12-19-2021 Telephone encounter Juanito Easterwood [facility] Start: 11-19-2021 End: 11-19-2021 ambulatory Juantio Easterwood Other [facility] Other Start: 11-19-2021 Telephone encounter Juanito Easterwood [facility] Start: 10-29-2021 End: 10-29-2021 ambulatory Juanito Easterwood Other [facility] Other Start: 10-29-2021 Telephone encounter Juanito Easterwood [facility] [place] Start: 10-14-2021 End: 10-14-2021 ambulatory Juanito Easterwood Other [facility] Other Start: 10-14-2021 Office outpatient visit 40 minutes Juanito Easterwood [facility] Start: 10-14-2021 Telephone encounter Juanito Easterwood [facility] Start: 10-10-2021 ambulatory JUANITO EASTERWOOD Facilit y:[facility] Start: 10-07-2021 End: 10-07-2021 ambulatory Juanito Easterwood Other [facility] Other Start: 10-07-2021 Telephone encounter Juanito Easterwood [facility] [place] Start: 09-26-2021 End: 09-26-2021 ambulatory Juanito Easterwood Other [facility] Other Start: 09-26-2021 Office outpatient visit 40 minutes Juanito Deleon [facility] Start: 09-19-2021 End: 09-19-2021 ambulatory Juanito Deleon Other [facility] Other Start: 09-19-2021 Tele[place] encounter [facility] [place] Start: 09-17-2021 End: 09-17-2021 ambulatory Juanito Pagenewman Other [facility] Other Start: 09-17-2021 [facility] Start: 09-02-2021 End: 09-02-2021 ambulatory Juanito Pagenewman Other [facility] Other Start: 09-02-2021 Encounter for genera l adult medical examination without abnormal findings [facility] Start: 09-02-2021 Initial preventive medicine new pt age 18-39yrs [facility] [place] Start: 07-10-2021 End: 07-10-[address] MARY ALCARAZ . Facility: Start: 06-12-2021 End: 06-12-2021 ambulatory OLI DUMONT Facility: Procedures Date Procedure Procedure Detail Performing Clinician Start: 11-20-2023 Doppler ultrasonography of kidney CIGAR INSPECTOR D [facility] Work Phone: Start: 11-20-2023 Ultrasonography of bilateral kidneys CIGAR INSPECTOR [facility] Work Phone: Start: 10-03-2023 Plain chest X-ray CIGAR INSPECTOR Juanito Pagenewman Work Phone: Start: 05-13-2023 CT of facial bones with contrast CIGAR INSPECTOR Da keily [facility] Work Phone: Start: 05-13-2023 CT of head without contrast CIGAR INSPECTOR Juanito [facility] Work Phone: Start: 05-13-2023 SARS-CoV-2, Influenza & RSV (PCR) CIGAR INSPECTOR [facility] Work Phone: Start: 05-13-2023 Urine culture CIGAR INSPECTOR [facility] Work Phone: Start: 05-07-2023 CT of facial bones with contrast CIGAR INSPECTOR Lobito keily [facility] Work Phone: Start: 07-28-2022 Esophagogastroduodenoscopy CIGAR INSPECTOR [facility] Work Phone: Start: 07-11-2015 H/O: section H/O section x 1 previa. Jude Aponte PA-C Work Phone: Start: 05-01-2008 childbirth 1 Wesly Taverastefany Comment on above: vag delivery Start: 01-28-2007 wisdom teeth extraction Wesly Lopez Plan of Treatment Date Care Activity Detail Author Start: 10-22-2030 Urine microalbumin profile DTaP,Tdap,Td Vaccine (7 - Tdap) [facility] Start: 11-29-2023 Influenza vaccination Influenza Vaccine (Season Ended) [facility] Start: 10-03-2023 Streptococcus pyogenes Ag [Presence] in Unspecified specimen [facility] Start: 10-03-2023 Plain chest X-ray XR chest 2V* [facility] Start: 10-03-2023 XR Chest 2 Views [facility] Start: 05-13-2023 CT Facial bones W contrast IV [facility] Start: 05-13-2023 CT of facial bones with contrast CT facial bones w con [facility] Start: 05-13-2023 CT of head without contrast CT head/brain wo con [facility] Start: 05-13-2023 CT Unspecified body region WO contrast [facility] Start: 05-13-2023 Bacteria identified in Urine by Culture [facility] Start: 05-12-2023 Patient referral [facility] Work Phone: Start: 05-07-2023 CT Facial bones W contrast IV [facility] Start: 05-07-2023 CT of facial bones with contrast CT facial bones w con [facility] Start: 03-30-2023 Behavioral Health Screening Behavioral Health Screening [facility] Start: 11-28-2022 Covid-19 Vaccine ( season) Covid-19 Vaccine () [facility] Start: 11-28-2022 Influenza vaccination Influenza Vaccine (#1) [facility] Start: 07-28-2022 [facility] Start: 2020 Screening for malignant neoplasm of cervix [facility] Start: 2011 Screening for malignant neoplasm of cervix [facility] Start: 2008 Hepatitis C screening Hepatitis C Screening [facility] Start: 2008 HIV screening HIV Screening [facility] Start: 02-19-2006 Hepatitis B Vaccine (3 of 3 - 3-dose series) Hepatitis B Vaccine (3 of 3 - 3-dose series) [facility] Start: 1996 Pneumococcal vaccination Pneumococcal Vaccine (1 of 2 - PCV) [facility] Patient Education [facility] Work Phone: Patient referral [facility] Work Phone: [place] Kidney - bilateral [facility] Immunizations Immunization Date Immunization Notes Care Provider Fa cilimarquis 03-01-2021 Do not use COVID-19 Pfizer 2 dose Juanito Easterwood Other [facility] 01-27-2021 influenza, injectable, quadrivalent, preservative free CIGAR INSPECTOR Juanito Easterwood Work Phone: [facility] 01-27-2021 influenza, injectable, quadrivalent, contains preservative Juanito Easterwood Other [facility] Other 01-27-2021 influenza virus vaccine, unspecified formulation Melissa Dorsey NP Work Phone: [facility] 04-06-2020 Do not use COVID-19 Pfizer 2 dose Juanito Easterwood Other [facility] 03-19-2020 Do not use COVID-19 Pfizer 2 dose Juanito Deleon Other [facility] 05-21-2010 influenza virus vaccine, split virus (incl. purified surface antigen) Juanito Deleon Other [facility] Other 05-21-2010 influenza virus vaccine, unspecified formulation CIGAR INSPECTOR Juanito Deleon Work Phone: [facility] Payers Date Payer Category Payer Medicaid [id number] 2022 Medicaid [id number] 2. [id number] 2022 Medicaid [id number] 1990 Unknown [id number] 2.16.84 [id number] 1990 Unknown [id number] 2.16.84 0.1.615837.3.579.2.593 1990 Unknown [id number] 2.16.84 0.1.982190.3.579.2.593 1990 Unknown [id number] 2.16.84 0.1.887941.3.579.2.593 1990 Unknown [id number] 2.16.84 0.1.833819.3.579.2.593 1990 Unknown [id number] 2.16.84 0.1.278334.3.579.2.593 1990 Unknown [id number] 2.16.84 0.1.089168.3.579.2.593 1990 Unknown [id number] 2.16.84 0.1.593905.3.579.2.1259 1990 Unknown [id number] 2.16.84 0.1.643125.3.579.2.1259 1990 Unknown [id number] 2.16.8 40.1.211718.3.579.2.727 1990 Unknown [id number] 2.16.8 40.1.259093.3.579.2.727 1959 Self-pay 1959 Unknown [id number] Unknown [id number] 2.1 [id number] Unknown [id number] 2.16.8 40.1.501030.3.579.2.531 Unknown [id number] 2.16.8 40.1.608244.3.579.2.531 Unknown [id number] 2.16.8 40.1.868225.3.579.2.531 Unknown [id number] 2.16.8 40.1.338217.3.579.2.531 Unknown [id number] 2.16.8 40.1.104847.3.579.2.531 Unknown [id number] 2.16.8 40.1.234810.3.579.2.531 Unknown [id number] 2.16.8 40.1.293795.3.579.2.531 Unknown [id number] 2.16.8 40.1.659494.3.579.2.531 Unknown [id number] 2.16.8 40.1.261162.3.579.2.531 Social History Date Type Detail Facility Unknown if ever smoked [facility] Other Start: 07-23-2023 Sex Assigned At [facility] Start: 07-28-2022 End: 10-03-2023 Tobacco smoking status KYIS Ex-smoker (finding) [facility] Start: 1990 Sex Assigned At Female [facility] History of tobacco use Current smoker [facility] End: 03-06-2010 History of tobacco use Cigarette Smoker [facility] Start: 07-11-2015 End: 05-05-2023 Tobacco use and exposure Smokeless tobacco non-user [facility] Start: 1990 Sex Assigned At Not on file [facility] Start: 07-11-2015 Tobacco smoking status NHIS Occasional tobacco smoker [facility] Start: 07-11-2015 Alcohol intake Current non-dr western felt hat blocker of alcohol (finding) [facility] Start: 07-23-2023 History of Social function [facility] National Score (1-100), lower number is lower risk 44 [facility] Tobacco smoking status No Smoking Status Entered [facility] NEGATED: Highlighted row [facility] Medical Equipment Procedure Code Equipment Code Equipment Origin al Text Equipment Identifier Dates [place] 30G X 5 MM Start: 01-15-2023 Goals Date Patient Goal Desired Activity /State Functional Status Date Assessment Result Facility 10-23-2023 Functional Status N/A [facility] Clinical Notes 09-02-2021 to 10-24-2023 Note Date & Type Note Facility 10-24-2023 Hospital Discharg e instructions Patient Education 10/23/2023 23:26:38 Ankle Sprain, Adqw-md-Vxhm Ankle Sprain An ankle sprain is a stretch or tear in one of the tough tissues (ligaments) that connect the bones in your ankle. An ankle sprain can happen when the ankle rolls outward (inversion sprain) or inward (eversion sprain). What are the causes? This condition is caused by rolling or twisting the ankle. What increases the risk? You are more likely to develop this condition if you play sports. What are the signs or symptoms? Symptoms of this condition include: Pain in your ankle. Swelling. Bruising. This may happen right after you sprain your ankle or 1 2 days later. Trouble standing or walking. How is this diagnosed? This condition is diagnosed with: A physical exam. During the exam, your doctor will press on certain parts of your foot and ankle and try to move them in certain ways. X-ray imaging. These may be taken to see how bad the sprain is and to check for broken bones. How is this treated? This condition may be treated with: A brace or splint. This is used to keep the ankle from moving until it heals. An elastic bandage. This is used to support the ankle. Crutches. Pain medicine. Surgery. This may be needed if the sprain is very bad. Physical therapy. This may help to improve movement in the ankle. Follow these instructions at home: If you have a brace or a splint: Wear the brace or splint as told by your doctor. Remove it only as told by your doctor. Loosen the brace or splint if your toes: ?Tingle. ?Lose feeling (become numb). ?Turn cold and blue. Keep the brace or splint clean. If the brace or splint is not waterproof: ?Do not let it get wet. ?Cover it with a watertight covering when you take a bath or a shower. If you have an elastic bandage (dressing): Remove it to shower or bathe. Try not to move your ankle much, but wiggle your toes from time to time. This helps to prevent swelling. Adjust the dressing if it feels too tight. Loosen the dressing if your foot: ?Loses feeling. ?Tingles. ?Becomes cold and blue. Managing pain, stiffness, and swelling Take zwqw-xmr-pheiiur and prescription medicines only as told by doctor. For 2 3 days, keep your ankle raised (elevated) above the level of your heart. If told, put ice on the injured area: ?If you have a removable brace or splint, remove it as told by your doctor. ?Put ice in a plastic bag. ?Place a towel between your skin and the bag. ?Leave the ice on for 20 minutes, 2 3 times a day. General instructions Rest your ankle. Do not use your injured leg to support your body weight until your doctor says that you can. Use crutches as told by your doctor. Do not use any products that contain nicotine or tobacco, such as cigarettes, e-cigarettes, and chewing tobacco. If you need help quitting, ask your doctor. Keep all follow-up visits as told by your doctor. Contact a doctor if: Your bruises or swelling are quickly getting worse. Your pain does not get better after you take medicine. Get help right away if: You cannot feel your toes or foot. Your foot or toes look blue. You have very bad pain that gets worse. Summary An ankle sprain is a stretch or tear in one of the tough tissues (ligaments) that connect the bones in your ankle. This condition is caused by rolling or twisting the ankle. Symptoms include pain, swelling, bruising, and trouble walking. To help with pain and swelling, put ice on the injured ankle, raise your ankle above the level of your heart, and use an elastic bandage. Also, rest as told by your doctor. Keep all follow-up visits as told by your doctor. This is important. This information is not intended to replace advice given to you by your health care provider. Make sure you discuss any questions you have with your health care provider. Document Revised: 05/09/2021 Document Reviewed: 05/09/2021 [employer] Patient Education 2022 [employer]. Follow Up Care 10/23/2023 22:26:37 With:Call to schedule a follow-up appointment with your orthopedic surgeon for further management of care. Use the diflunisal as needed for pain. Do not use ibuprofen or naproxen with this as they are in the same family class. Return to the ED with any wors Address:Unknown When:10/26/2023 With:[facility] Address: [address] [place] [phone] Business (1) When:Within 3 Day(s) [facility] 10-23-2023 Note ED Patient Education Note Orthopedics Ankle Sprain An ankle sprain is a stretch or tear in one of the tough tissues (ligaments) that connect the bones in your ankle. An ankle sprain can happen when the ankle rolls outward (inversion sprain) or inward (eversion sprain). What are the causes? This condition is caused by rolling or twisting the ankle. What increases the risk? You are more likely to develop this condition if you play sports. What are the signs or symptoms? Symptoms of this condition include: ? Pain in your ankle. ? Swelling. ? Bruising. This may happen right after you sprain your ankle or 1?2 days later. ? Trouble standing or walking. How is this diagnosed? This condition is diagnosed with: ? A physical exam. During the exam, your doctor will press on certain parts of your foot and ankle and try to move them in certain ways. ? X-ray imaging. These may be taken to see how bad the sprain is and to check for broken bones. How is this treated? This condition may be treated with: ? A brace or splint. This is used to keep the ankle from moving until it heals. ? An elastic bandage. This is used to support the ankle. ? Crutches. ? Pain medicine. ? Surgery. This may be needed if the sprain is very bad. ? Physical therapy. This may help to improve movement in the ankle. Follow these instructions at home: If you have a brace or a splint: ? Wear the brace or splint as told by your doctor. Remove it only as told by your doctor. ? Loosen the brace or splint if your toes: ? Tingle. ? Lose feeling (become numb). ? Turn cold and blue. ? Keep the brace or splint clean. ? If the brace or splint is not waterproof: ? Do not let it get wet. ? Cover it with a watertight covering when you take a bath or a shower. If you have an elastic bandage (dressing): ? Remove it to shower or bathe. ? Try not to move your ankle much, but wiggle your toes from time to time. This helps to prevent swelling. ? Adjust the dressing if it feels too tight. ? Loosen the dressing if your foot: ? Loses feeling. ? Tingles. ? Becomes cold and blue. Managing pain, stiffness, and swelling ? Take bach-wci-kfoudre and prescription medicines only as told by doctor. ? For 2?3 days, keep your ankle raised (elevated) above the level of your heart. ? If told, put ice on the injured area: ? If you have a removable brace or splint, remove it as told by your doctor. ? Put ice in a plastic bag. ? Place a towel between your skin and the bag. ? Leave the ice on for 20 minutes, 2?3 times a day. General instructions ? Rest your ankle. ? Do not use your injured leg to support your body weight until your doctor says that you can. Use crutches as told by your doctor. ? Do not use any products that contain nicotine or tobacco, such as cigarettes, e-cigarettes, and chewing tobacco. If you need help quitting, ask your doctor. ? Keep all follow-up visits as told by your doctor. Contact a doctor if: ? Your bruises or swelling are quickly getting worse. ? Your pain does not get better after you take medicine. Get help right away if: ? You cannot feel your toes or foot. ? Your foot or toes look blue. ? You have very bad pain that gets worse. Summary ? An ankle sprain is a stretch or tear in one of the tough tissues (ligaments) that connect the bones in your ankle. ? This condition is caused by rolling or twisting the ankle. ? Symptoms include pain, swelling, bruising, and trouble walking. ? To help with pain and swelling, put ice on the injured ankle, raise your ankle above the level of your heart, and use an elastic bandage. Also, rest as told by your doctor. ? Keep all follow-up visits as told by your doctor. This is important. This information is not intended to replace advice given to you by your health care provider. Make sure you discuss any questions you have with your health care provider. Document Revised: 05/09/2021 Document Reviewed: 05/09/2021 [employer] Patient Education ? 2022 [employer]. [facility] 10-23-2023 Evaluation + Plan note Extrac jessica from: Title:ED Note Author:Yolette HUIZAR, Alyx Robin te:10/23/23 Post-operative complication (T81.9XXA: Unspecified complication of procedure, initial encounter) Orders: ketorolac, 30 mg = 1 mL, Injection, IntraMuscular, Once, Stop date 10/23/23 23:21:00 EDT, STAT, Start date 10/23/23 23:21:00 EDT, 10/23/23 23:21:00 EDT XR Ankle 3+ Views Left XR Foot 3+ Views Left [facility] [id number] Telephone encounter Note* Telephone Encounter - Lupe Cole - 07/30/2023 10:43 AM EDT Pt called Asked for a work excuse for 07/22. She couldn't get a fax number for [employer]. Sent her [employer] registration info (she could get the letter that way) and also mailed to [place] address. Advised of 2 week delay [facility]05-02-2024 Miscellaneous Notes* Telephone Encounter - Rebeca Parrish Lupe - 07/30/2023 10:43 AM EDT Pt called Asked for a work excuse for 07/22. She couldn't get a fax number for [facility]. Sent her [employer] registration info (she could get the letter that way) and also mailed to [place] address. Advised of 2 week delay documented in this encounterProm[facility] NoteHNO ID: [id number] Author: JUDE APONTE PA-C Service: ? Author Type: Physician Endocrinology Specialist Type: Progress Notes Filed: 07/23/2023 12:10 Note Text: CC: Lisandra Solis is 33 year old female who is self referred for left ear infection Assessment and Plan: (Z86.69) H/O otitis media (primary encounter diagnosis) (Z86.69) H/O acute otitis externa ~previous left ear infection 2-[address] facial on 05/07/23 showed evidence of left middle ear effusion, mastoid opacity and declining soft tissue density in EAC ~symptoms resolved today. Removed congealed wall of old blood from left EAC with DH and AF. Underlying canal and TM are normal ~follow up with me as needed HPI: Lisandra is a 33 year old who reports left ear infection. Started 2-3 months ago. +Pain, otorrhea, hearing loss, headache. Treated with antibiotics and ear drops with improvement. H/o recurrent ear infections in childhood, but not in adulthood until recent infection. No pain or drainage today. Notes hearing is back to baseline. No h/o ear surgeries or tubes. No adenoidectomy. ALLERGIES Allergen Reactions Vicodin [Hydrocodon* Itching Current Outpatient Medications Medication Sig Hydrocortisone 0.5 % lotn Twice daily amLODIPine (NORVASC) 2.5 mg tablet Take 1 tablet by mouth once daily. naproxen (NAPROSYN) 500 mg tablet Take 500 mg by mouth twice daily with meals. hydrochlorothiazide (HYDRODIURIL, ESIDRIX) 25 mg tablet Take 25 mg by mouth once daily. No current facility-administered medications for this visit. No past medical history on file. No past surgical history on file. Social History: Social History Tobacco Use Smoking status: Some Days Types: Cigarettes Last attempt to quit: 03/06/2010 Years since quittin.3 Smokeless tobacco: Never Substance Use Topics Alcohol use: No Drug use: No No family history on file. Review Of Systems GENERAL: No weight loss, malaise or fevers. HEENT: Negative for frequent or significant headaches, No changes in hearing or vision, Ears Positive for previous ear infection NECK: Negative for lumps, goiter, pain and significant neck swelling I have confirmed and edited as necessary the ROS obtained by others. Jude Aponte PA-C PHYSICAL EXAM: LMP 06/24/2015 No weight on file for this encounter. General appearance: Well appearing, alert, in no acute distress, well-hydrated, well nourished. Cranial Nerves: III-XII: grossly intact Skin: Skin color, texture, turgor normal, no suspicious rashes or lesions Head: normocephalic, no masses, lesions, tenderness or abnormalities Ears: Bilateral external ear normal, Left external auditory canal has wall of old congealed blood - removed with DH and AF - underlying canal is normal, Right EAC normal, Bilateral tympanic membrane normal after cleaning. Neuro: Gait normal. Mental status revealed patient to be alert and oriented. Mood is appropriate Jude Aponte PA-C Medical Decision Making: Problems: Low: Acute, uncomplicated illness or injury Data: Unique test result(s) reviewed: 1 Risk: Low: Low risk from testing/treatment Medical Decision Making Level: [facility] of Present illness Narrative* Jude Aponte PA-C - 07/23/2023 11:59 AM EDT CC: Lisandra Solis is 33 year old female who is self referred for left ear infection Assessment and Plan: (Z86.69) H/O otitis media (primary encounter diagnosis) (Z86.69) H/O acute otitis externa ~previous left ear infection 2-[address] facial on 05/07/23 showed evidence of left middle eareffusion, mastoid opacity and declining soft tissue density in EAC ~symptoms resolved today. Removed congealed wall of old blood from left EAC with DH and AF. Underlying canal and TM are normal ~follow up with me as needed HPI: Lisandra is a 33 year old who reports left ear infection. Started 2-3 months ago. +Pain, otorrhea, hearing loss, headache. Treated with antibiotics and ear drops with improvement. H/o recurrent ear infections in childhood, but not in adulthood until recent infection. No pain or drainage today. Notes hearing is back to baseline. No h/o ear surgeries or tubes. No adenoidectomy. ALLERGIES Allergen Reactions Vicodin [Hydrocodon* Itching Current Outpatient Medications Medication Sig Hydrocortisone 0.5 % lotn Twice daily amLODIPine (NORVASC) 2.5 mg tablet Take 1 tablet by mouth once daily. naproxen (NAPROSYN) 500 mg tablet Take 500 mg by mouth twice daily with meals. hydrochlorothiazide (HYDRODIURIL, ESIDRIX) 25 mg tablet Take 25 mg by mouth once daily. No current facility-administered medications for this visit. No past medical history on file. No past surgical history on file. Social History: Social History Tobacco Use Smoking status: Some Days Types: Cigarettes Last attempt to quit: 03/06/2010 Years since quittin.3 Smokeless tobacco: Never Substance Use Topics Alcohol use: No Drug use: No No family history on file. Review Of Systems GENERAL: No weight loss, malaise or fevers. HEENT: Negative for frequent or significant headaches, No changes in hearing or vision, Ears Positive for previous ear infection NECK: Negative for lumps, goiter, pain and significant neck swelling I have confirmed and edited as necessary the ROS obtained by others. Jude Aponte PA-C PHYSICAL EXAM: LMP 06/24/2015 No weight on file for this encounter. General appearance: Well appearing, alert, in no acute distress, well-hydrated, well nourished. Cranial Nerves: III-XII: grossly intact Skin: Skin color, texture, turgor normal, no suspicious rashes or lesions Head: normocephalic, no masses, lesions, tenderness or abnormalities Ears: Bilateral external ear normal, Left external auditory canal has wall of old congealed blood -removed with DH and AF - underlying canal is normal, Right EAC normal, Bilateral tympanic membrane normal after cleaning. Neuro: Gait normal. Mental status revealed patient to be alert and oriented. Mood is appropriate Jude Aponte PA-C Medical Decision Making: Problems: Low: Acute, uncomplicated illness or injury Data: Unique test result(s) reviewed: 1 Risk: Low: Low risk from testing/treatment Medical Decision Making Level: 3 - Low documented in this encounterProm[facility] History of Present illness Narrative* Melissa Dorsey NP - 05/05/2023 10:10 AM EST HPI: Historian of HPI: patient Lisandra Solis is a 33 y.o. female who presents today to the Urgent Care with the following complaints and denials which have been present for 2 week(s) C/O Denies Symptom Comments [] [x] Runny Nose [] [x] Difficulty Swallowing [] [x] Sore Throat [] [x] Cough [x] [] Ear Pain left [] [x] Fever [] [x] Chills [] [x] Nasal Congestion [] [x] Myalgia [] [x] Sinus Pain [] [x] Sinus Pressure Additional Comments: pt has not taken any OTC medications Denies or . ROS: A complete system ROS was performed and negative aside from the pertinent positives noted in the HPI and PE. Examination General Examination: General Examination: in no acute distress, well developed, well nourished Head: normocephalic, atraumatic Eyes: no discharge Ears: right canal normal. Right TM with small effusion. Left canal with edema, erythema and mucoid discharge. Unable to visualize left TM. Pain with movement of left pinna. No mastoid bone tenderness. Nose: nares patent, sinuses nontender bilaterally Oral Cavity: mucosa moist Throat: pharynx with erythema and PND. No trismus, muffled voice, drooling or protrusion of soft palate. Uvula midline Neck/Thyroid: neck supple, trachea midline Lymph Nodes: no cervical adenopathy Skin: warm and dry Heart: S1, S2 normal, regular rate and rhythm, no S3, S4, no murmurs, rubs, gallops Lungs: clear anteriorly and posteriorly, clear to auscultation bilaterally, good air movement, no wheezes, rales, rhonchi Chest: normal shape and expansion, normal anteroposterior (AP) diameter Psych: alert, oriented. 1. Acute diffuse otitis externa of left ear D/t extent of edema start PO and otic medications-see rx. Discussed Se. Immediate eval if new, worsening or warning s/s otherwise follow up with PCP 7- 10 days for recheck, sooner if not improving over next 3-4 days. - amoxicillin-clavulanate (Augmentin) 875-125 MG tablet; Take 1 tablet (875 mg) by mouth in the morning and 1 tablet (875 mg) before bedtime. Do all this for 10 days. Dispense: 20 tablet; Refill: 0 - ciprofloxacin-dexAMETHasone (CiproDEX) otic suspension; Administer 4 drops into affected ear(s) in the morning and 4 drops before bedtime. Do all this for 7 days. Dispense: 7.5 mL; Refill: 0 documented in this encounterMiss[facility] HealthcareWrsfrvyxyf[facility] Evaluation note* Encounter Date Diagnosis Assessment Notes Treatment Notes Treatment Clinical Notes Jan, Primary hypertension (ICD-10 - I10) [facility] Other 11-21-2023 Evaluation note* Encounter Date Diagnosis [...] Medication monitorin g encounter (ICD-10 - Z51.81) [facility] Other 09-14-2023 Evaluation note* Encounter Date Diagnosis Assessment Notes Treatment Notes Treatment Clinical Notes Nov, Strep pharyngitis (ICD-10 - J02.0) Strep testing did result as positive during drive up testing. Will prescribe antibiotic. Aware of what symptoms warrant immediate evaluation by emergency department. Take entire course of antibiotic, take with probiotic, please change your toothbrush and gargle with warm salt water as needed. Irhu-tud-kuydszl medications suggested. Written off work for 2 days. Nov, Acute cough (ICD-10 - R05.1) Due to her symptoms, patient would really like repeat COVID, influenza and strep testing. She does drive to the office for drive up testing. Patient to continue conservative measures and pavl-yux-mjjjnni medications for symptom relief of the cough. [...] the visit was counseling done by myself, Juanito RIVAS. [facility] Other 09-07-2023 Evaluation note* Encounter Date Diagnosis [...] patient set personal goal using given handout. [facility] Other 08-28-2023 Evaluation note* Encounter Date Diagnosis [...] - G43.909) Oct, Snores (ICD-10 - R06.83) [facility] Other 08-28-2023 Evaluation note* Encounter Date Diagnosis Assessment Notes Treatment Notes Treatment Clinical Notes Oct, Primary hypertension (ICD-10 - I10) [facility] Other 06-19-2023 Evaluation note* Encounter Date Diagnosis Assessment Notes Treatment Notes Treatment Clinical Notes Aug, Anxiety (ICD-10 - F41.9) [facility] Other 05-15-2023 Evaluation note* Encounter Date Diagnosis [...] putting a referral into health services in [place]. No emergent evaluation by psychiatry is warranted [...] that were not corrected during review process. [facility] 05-[facility]-2023 [facility]* Encounter Date Diagnosis Assessment Notes Treatment Notes Treatment Clinical Notes Jun, Primary hypertension (ICD-10 - I10) [facility] Other 04-17-2023 Evaluation note* Encounter Date Diagnosis [...] that were not corrected during review process. [facility] Other 03-27-2023 Evaluation note* Encounter Date Diagnosis [...] or refer her to weight management through [facility]. Patient verbalizes understanding May, Gastroesophageal reflux disease without esophagitis (ICD-10 - K21.9) Discussed with patient expectations in regards to EGD. I would like her to continue moving forward with the procedure. Much emotional and motivational support given today. I did encourage her to please refrain from takeout and restaurants with high fatty greasy meals such as Myze as this is exacerbating her GI issues. [...] her to participate in group therapy, counseling, presybeterian, exercise, hobby what ever she has personal [...] to reach out to Dr. Quispe in [place]. Patient verbalizes understanding. He is aware of symptoms would indicate underlying emergent pathology. May, Hospital discharge follow-up (ICD-10 - Z09) Hospital documentation, testing, images, discharge and medications reviewed in preparation for this visit. May, Other *Progress note was completed with the assistance of voice recognition software for dictation purposes. Please excuse any grammatical errors that were not corrected during review process. [facility] Other 03-23-2023 Evaluation note* Encounter Date Diagnosis Assessment Notes Treatment Notes Treatment Clinical Notes May, Epigastric pain (ICD-10 - R10.13) Continue Omeprazole for now Arrange for EGD May, RUQ abdominal pain (ICD-10 - R10.11) May, Duodenitis (ICD-10 - K29.80) May, Abnormal finding on imaging (ICD-10 - R93.89) [facility] Other 02-16-2023 Evaluation note* Encounter Date Diagnosis Assessment Notes Treatment Notes Treatment Clinical Notes Apr, Duodenitis (ICD-10 - K29.80) [facility] Other 02-02-2023 Evaluation note* Encounter Date Diagnosis [...] that were not corrected during review process. [facility] Other 01-06-2023 Evaluation note* Encounter Date Diagnosis Assessment Notes Treatment Notes Treatment Clinical Notes Mar, Obesity, morbid, BMI 40.0-49.9 (ICD-10 - E66.01) [facility] Other 01-05-2023 Evaluation note* Encounter Date Diagnosis Assessment Notes Treatment Notes Treatment Clinical Notes Mar, Obesity, morbid, BMI 40.0-49.9 (ICD-10 - E66.01) Emotional motivational support given today. I do concur, I do feel that working at [facility] [employer] [facility] will keep her active, reduce her weight [...] sent to due to the cost at [facility] in [place]. Mar, Low back pain, unspecified (ICD-10 - [...] if emergent symptoms present. Patient verbalizes understanding. [facility] Other 12-21-2022 Evaluation note* Encounter Date Diagnosis Assessment Notes Treatment Notes Treatment Clinical Notes Feb, Viral illness (ICD-10 - B34.9) Discussed likely she is suffering from viral illness, specifically RSV as her daughter is also RSV positive.Discussed conservative measures for symptom relief as well as axhi-iil-qqqupln medications for symptom relief. Does not warrant [...] the visit was counseling done by myself, Juanito RIVAS. Off work note was written for patient and emailed via fax machine to her email. [facility] Other 12-14-2022 Evaluation note* Encounter Date Diagnosis Assessment Notes Treatment Notes Treatment Clinical Notes Feb, HLD (hyperlipidemia) (ICD-10 - E78.5) Feb, Fatty liver (ICD-10 - K76.0) [facility] Other 11-21-2022 Evaluation note* Encounter Date Diagnosis Assessment Notes Treatment Notes Treatment Clinical Notes Jan, Depression, unspecified depression type (ICD-10 - F32.A) [facility] Other 11-01-2022 Evaluation note* Encounter Date Diagnosis [...] is agreeable to physical therapy order to [facility]. I do feel they can help her [...] agreeable to CT of the abdomen to [facility] however still would like to wait on the referral to gastroenterology. We will follow-up in office regarding the results. Jan, Other *Progress note was completed with the assistance of voice recognition software for dictation purposes. Please excuse any grammatical errors that were not corrected during review process. [facility] Other 10-24-2022 Evaluation note* Encounter Date Diagnosis Assessment Notes Treatment Notes Treatment Clinical Notes Dec, Uncontrolled hypertension (ICD-10 - I10) [facility] Other 10-20-2022 Evaluation note* Encounter Date Diagnosis Assessment Notes Treatment Notes Treatment Clinical Notes Dec, Uncontrolled hypertension (ICD-10 - I10) [facility] Other 08-23-2022 Evaluation note* Encounter Date Diagnosis Assessment Notes Treatment Notes Treatment Clinical Notes Oct, Low back pain, unspecified back pain laterality, unspecified chronicity, unspecified whether sciatica present (ICD-10 - M54.50) Oct, Uncontrolled hypertension (ICD-10 - I10) Oct, Primary hypertension (ICD-10 - I10) [facility] Other 08-02-2022 Evaluation note* Encounter Date Diagnosis Assessment Notes Treatment Notes Treatment Clinical Notes Oct, Depression, unspecified depression type (ICD-10 - F32.A) Oct, Anxiety (ICD-10 - F41.9) Oct, Low back pain, unspecified back pain laterality, unspecified chronicity, unspecified whether sciatica present (ICD-10 - M54.50) [facility] Other 07-18-2022 Evaluation note* Encounter Date Diagnosis [...] sleep. Is agreeable to counseling referral to [place] provider. Sep, Low back pain, unspecified back [...] that were not corrected during review process. [facility] Other 06-30-2022 Evaluation note* Encounter Date Diagnosis [...] counseling referral. Patient [ACCEPTS/DECLINES] counseling/psychiatry referral today. 30 Parmjit, 2022 Uncontrolled hypertension (ICD-10 - I10) Blood pressure [...] her safety or the safety of others. [facility] Other 06-23-2022 Evaluation note* Encounter Date Diagnosis Assessment Notes Treatment Notes Treatment Clinical Notes Aug, Weight gain (ICD-10 - R63.5) Aug, Chronic fatigue (ICD-10 - R53.82) [facility] Other 06-21-2022 Evaluation note* Encounter Date Diagnosis [...] at the next visit. Needs to contact [facility] or look in her portal to see [...] Discussed short term 8 week course vs. penitentiary management. Discussed pros and cons of taking PPI. Pt has tried and failed H2 receptor frederic and dietary changes. Discussed how stress and [...] the visit was counseling done by myself, Juanito RIVAS. [email or web address] Other 06-06-2022 Evaluation note* Encounter Date Diagnosis [...] time. Aug, Other Patient has questions regarding negative assembler cough, history of sleep study almost 10 [...] that were not corrected during review process. [facility] Other Evaluation noteNo InformationNortFairmount [facility]al [facility] Other Evaluation noteNo assessment information available [facility] Work Phone: Evaluation note* Diagnosis Acute diffuse otitis externa of left ear- Primary documented in this encounter [facility]* Diagnosis Onset Date Resolution Status Mastoiditis acute Nausea acute Otitis externa acute [facility] Work Phone: Evaluation note* Diagnosis Onset Date Resolution Status Mastoiditis acute Nausea acute Otitis externa acute Chronic otitis media acute [facility] Work Phone: Evaluation note* Diagnosis Onset Date Resolution Status Mastoiditis acute Nausea acute Otitis externa acute Chronic otitis media acute Depression acute Vitamin D deficiency acute [facility] Work Phone: Evaluation note* Diagnosis H/O otitis media- Primary Personal history of other disorders of nervous system and sense organs H/O acute otitis externa Personal history of other disorders of nervous system and sense organs [facility] this encounter [facility] Diagnosis Onset Date Resolution Status Chronic otitis media acute Depression acute Vitamin D deficiency acute [facility] Work Phone: Evaluation note* Diagnosis Onset Date Resolution Status Depression acute Vitamin D deficiency acute Anxiety acute Chronic fatigue acute Vitamin D deficiency acute [facility] Work Phone: Evaluation note* Diagnosis Onset Date Resolution Status Anxiety acute Chronic fatigue acute Vitamin D deficiency acute Chronic fatigue acute HTN (hypertension) acute Prediabetes acute Uncontrolled hypertension ac eek Amenorrhea noneactive [facility] Work Phone: Evaluation note* Diagnosis Onset Date Resolution Status Anxiety acute Chronic fatigue acute Vitamin D deficiency acute Chronic fatigue acute HTN (hypertension) acute Prediabetes acute Uncontrolled hypertension ac eek Worsening headaches noneacti ve Hot flashes noneactive Amenorrhea noneactive [facility] Work Phone: Evaluation note* Diagnosis Onset Date Resolution Status Chronic fatigue acute HTN (hypertension) acute Prediabetes acute Uncontrolled hypertension ac eek Worsening headaches noneacti ve Hot flashes noneactive Amenorrhea noneactive [facility] Work Phone: History and physical note Author Johann Moe [facility] July 28, 2022 2:29pm Note Date/Time July 28, 2022 2:29pm [facility] EN[facility] [address] [place] [address] Gastroenterology H&P Signed Patient: Lisandra Solis MR#: [id number] : 1990 Acct:[id number] Age/Sex: 32 / F Adm Date: 3 Loc: Room: Type: [facility] Attending Dr: Johann Moe MD Copies to: MD Juanito Olmos APRN~ Date of Service: 07/28/2022 HISTORY [...] <Electronically signed by Johann Moe MD> 07/28/221428 [facility] Work Phone: Hisrhqv general Narrative - Reported* Type Description Date Medical History Depression Medical History Chronic Migraines Medical History Hypertension Medical History Anxiety Surgical History Vaginal childbirth 2008 Surgical History Left knee surgery 2009 Surgical History Vaginal childbirth 2010 Surgical History Cholecystectomy 2012 Surgical History 2014 Surgical History uterine ablation 2021 Hospitalization History See Surgical [facility] Other Hiskzam general Narrative - Reported* Type Description Date [...] uterine ablation 2021 Hospitalization History See Surgical [facility] Other Hiseewq general Narrative - Reported* Type Description Date [...] uterine ablation 2021 Hospitalization History See Surgical [facility] Other History general Narrative - Reported* Type Description Date [...] uterine ablation 2021 Hospitalization History See Surgical [facility] Other History general Narrative - Reported* Type Description Date [...] uterine ablation 2021 Hospitalization History See Surgical [facility] Other hisDiavibe general Narrative - Reported* Type Description Date [...] Uterine ablation 2021 Hospitalization History See Surgical [facility] Other [facility] general Narrative - Reported* Type Description Date [...] EGD 07/28/2022 Hospitalization History See Surgical Hx [facility] Other History general Narrative - ReportedNortFairmount [facility]al [facility] Other Hospital course Narrative No data available for this section [facility] Discharge instructions Additional Instructions DISCHARGE INSTRUCTIONS [...] NOT operate machinery such as power tools, Elysian mowers, snow blowers, sewing machines, etc. for [...] problems. -Follow up with PCP. -Office number [phone].[facility] Work Phone: Hospital Discharge instructionsAmbulatory Orders* Referral to ENT Location: None Selected [facility] Work Phone: Hospital Discharge instructions Additional Instructions Continue to take antibiotic as Is important that you follow with Dr. Mayorga as discussed with your PCP Tylenol if needed for pain Bananas, rice, applesauce, toast to help formed stool Zofran if needed for nausea vomiting Rest Return here if any problems persist or worsen including fevers, chills, increased pain or any other concern ENT's name and [facility] Work Phone: [facility] Discharge instructions Additional Instructions Your tests were fine here tonight. There is no evidence of a dangerous problem. We are happy to see you anytime if you have any further problems or concerns. Your blood pressure was a little high tonight. Please be sure that you are taking your medications as prescribed and follow up with your doctor.[facility] Work Phone: Hospital Discharge instructions No data available for this section [facility] Progress note No data available for this section [facility] Reason for referral (narrative)* Reason Counseling in [facility] for anxiety NO PSYCHIATRY OR MED MANAGEMENT NEEDED Diagnosis 1 Anxiety (F41.9) Referral Organization [facility] Dl Lee Referring Provider First Name Juanito Referring Provider Last Name [facility] Referring Provider Specialty Nurse Criselda myles Referred Provider Specialty Psychiatry Referral Priority Routine [place] [employer] Other Reason for referral (narrative)* Reason *FU 08/[address]i [address] [facility] Rosa Diagnosis 1 Anxiety (F41.9) Referral Organization [facility] Family Medicin willow Lee Referring Provider First Name Juanito Referring Provider Last Name [facility] Referring Provider Specialty Nurse Criselda myles Referred Organization [employer] [facility] Referred Address [address] [place], [place],[address] Referred Provider Specialty Psychiatry Referral Priority Routine General Notes Elinor Mccormick 023 03:15:45 PM >Received today and referral was fax. They will review and call patient to schedule [employer] Other Reason for visit NarrativeBlood pressure f/u, Continued right upper quadrant pain, N/S sleep medicine, N/S counseling, Issues with Buspar, Tingling of hands, Low back painNort [employer] Other Reason for Referral Reason High probability for URBANO, send to [facility] Sleep Med please Diagnosis 1 Uncontrolled daytime somnolence (R40.0) Referral Organization [facility] Family Medicmesha Lee Referring Provider First Name Juanito Referring Provider Last Name [facility] Referring Provider Specialty Nurse Pracalthea myles Referred Provider Specialty Sleep Medici ne Referral Priority Routine Summary Purpose Family History Relationship Condition Age at Onset Recorded Date/T josiah Not Specified Diabetes mellitus Unknown Relationship Condition Age at Onset Recorded Date/T josiah Not Specified Diabetes mellitus Unknown grandparent Unknown Heart disease Unknown grandparent Malignant neoplasm Unknown Unknown grandparent Diabetes mellitus Unknown Relationship Condition Age at Onset Recorded Date/T ojsiah mother Diabetes mellitus Unknown grandparent Unknown Heart disease Unknown grandparent Malignant neoplasm Unknown Unknown grandparent Diabetes mellitus Unknown Advance Directives Advance Directive Response Recorded Date/ Time Advance Directives No August 05, 2017 1:52pm Advance Directive Response Recorded Date/ Time Advance Directives No August 05, 2017 12:52pm Chief Complaint and Reason for Visit Chief Complaint RUQ Chief Complaint Obesity I10 K76.0 Z51.81 Chief Complaint Obesity I10 K76.0 Z51.81 took gummies Chief Complaint Wmn Obesity I10 K76.0 Z51.81 took gummies Unknown Chief Complaint Wmn Obesity I10 K76.0 Z51.81 took gummies Unknown Lt ear pain Chief Complaint Wmn Obesity I10 K76.0 Z51.81 took gummies Unknown Lt ear pain UC follow up for ears Reason for Visit Mastoiditis Nausea Otitis externa Chief Complaint Wmn Obesity I10 K76.0 Z51.81 took gummies Unknown Lt ear pain UC follow up for ears left ear pain-recheck Reason for Visit Mastoiditis Nausea Otitis externa Chief Complaint Unknown Lt ear pain UC follow up for ears left ear pain-recheck ear pain rechecked crying episodes for a few weeks Reason for Visit Mastoiditis Nausea Otitis externa Chronic otitis media Chief Complaint Unknown Lt ear pain UC follow up for ears left ear pain-recheck ear pain rechecked crying episodes for a few weeks outpatient labs - TSH Reason for Visit Mastoiditis Nausea Otitis externa Chronic otitis media Depression Vitamin D deficiency Chief Complaint ear pain rechecked crying episodes for a few weeks E66.9 F32.A Reason for Visit Chronic otitis media Depression Vitamin D deficiency Chief Complaint ear pain rechecked crying episodes for a few weeks E66.9 F32.A 6 week follow up Reason for Visit Chronic otitis media Depression Vitamin D deficiency Chief Complaint crying episodes for a few weeks E66.9 F32.A 6 week follow up cp,sore throat.headache Reason for Visit Depression Vitamin D deficiency Anxiety Chronic fatigue Vitamin D deficiency Chief Complaint crying episodes for a few weeks E66.9 F32.A 6 week follow up cp,sore throat.headache ER Follow up Reason for Visit Depression Vitamin D deficiency Anxiety Chronic fatigue Vitamin D deficiency Chief Complaint 6 week follow up cp,sore throat.headache ER Follow up headaches, body gets hot to the touch Reason for Visit Anxiety Chronic fatigue Vitamin D deficiency Chronic fatigue HTN (hypertension) Prediabetes Uncontrolled hypertension Amenorrhea Chief Complaint 6 week follow up cp,sore throat.headache ER Follow up headaches, body gets hot to the touch I10 Reason for Visit Anxiety Chronic fatigue Vitamin D deficiency Chronic fatigue HTN (hypertension) Prediabetes Uncontrolled hypertension Worsening headaches Hot flashes Amenorrhea Chief Complaint cp,sore throat.heada [facility] Follow up headaches, body gets hot to the touch I10 8 week follow up Reason for Visit Chronic fatigue HTN (hypertension) Prediabetes Uncontrolled hypertension Worsening headaches Hot flashes Amenorrhea Additional Source Comments REASON FOR VISIT (unrecogniz ed section and content) Reason Comments Ear Problem A few months ago had a really bad ear infection in the left ear, wants to make sure it is ok, has never had a hearing test, no pain or discomfort at this time. Does not think she has hearing loss. Reason Comments Letter INFORMATION SOURCE (unrecogn ized section and content) DATE CREATED AUTHOR 06/11/2022 [facility] DATE CREATED AUTHOR AUTHOR'S ORGANIZ ATION 07/31/2023 [facility] DATE CREATED AUTHOR AUTHOR'S ORGANIZ ATION 08/14/2023 [facility] DATE CREATED AUTHOR AUTHOR'S ORGANIZ ATION 11/04/2023 [facility] DATE CREATED AUTHOR AUTHOR'S ORGANIZ ATION 11/09/2023 [facility] DATE CREATED AUTHOR AUTHOR'S ORGANIZ ATION 11/22/2023 [facility] Care Teams (unrecognized sec tion and content) Team Status: Active Member Role Status Dates Juanito Deleon APRN Primary Care Provider Active Team Status: Inactive Member Role Status Dates Juanito Deleon APRN Primary Care Pr jason, Attending Provider Active Start: August 26, 2023 End: August 26, 2023 Team Status: Inactive Member Role Status Dates Juanito Deleon APRN Primary Care Provider Active Start: October 03, 2023 End: October 03, 2023 Karoline Londono Jr, MD Emergency Provider Active Start: October 03, 2023 End: October 03, 2023 Jeet Tarango , RES Active St art: October 03, 2023 End: October 03, 2023 Team Status: Inactive Member Role Status Dates Juanito Deleon APRN Primary Care Pr jason, Attending Provider Active Start: October 07, 2023 End: October 07, 2023 Team Status: Inactive Member Role Status Dates Juanito Deleon APRN Primary Care Pr ovidritika, Attending Provider Active Start: November 02, 2023 End: November 02, 2023 Team Status: Inactive Member Role Status Dates Juanito Deleon APRN Primary Care Pr ovidritika, Attending Provider Active Start: November 20, 2023 End: November 20, 2023 Team Status: Active Member Role Status Dates Juanito Deleon APRN Primary Care Provider Active Start: August 12, 2023 Moon Olea PA-C Attending Provider Active Start : August 12, 2023 Team Status: Inactive Member Role Status Dates Uriah Skinner MD Attending Provider Active Start: February 17, 2023 End: February 17, 2023 Team Status: Active Member Role Status Dates Juanito Deleon APRN Primary Care Pr ovider, Attending Provider Active Start: February 17, 2023 Team Status: Inactive Member Role Status Dates Juanito Deleon APRN Primary Care Provider Active Start: February 17, 2023 End: February 17, 2023 Uriah Skinner MD Attending Provider Active Start: February 17, 2023 End: February 17, 2023 Team Status: Inactive Member Role Status Dates Juanito Deleon APRN Primary Care Provider Active Start: March 27, 2023 End: March 28, 2023 Karoline Londono Jr, MD Emergency Provider Active Start: March 27, 2023 End: March 28, 2023 Team Status: Active Member Role Status Dates Provider Conversion Attending Provider Active St art: April 10, 2023 Team Status: Inactive Member Role Status Dates Mark Mayorga DPM MS Attending Provider Active Start: April 16, 2023 End: April 16, 2023 Team Status: Active Member Role Status Dates Juanito Deleon APRN Primary Care Provider, Attend ing Provider Active Team Status: Inactive Member Role Status Dates Juanito Deleon APRN Primary Care Provider Active Uriah Skinner MD Attending Provider Active Team Status: Inactive Member Role Status Dates Juanito Deleon APRN Primary Care Provider Active Johann Moe MD Attending Provider Active Team Status: Inactive Member Role Status Dates Juanito Deleon APRN Primary Care Provider Active Karoline Londono Jr, MD Emergency Provider Active Team Status: Inactive Member Role Status Dates Juanito Deleon APRN Primary Care Provider Active Start: May 07, 2023 End: May 08, 2023 Markie Alegria PA-C Emergency Provider Active Start: May 07, 2023 End: May 08, 2023 Insurance Billing Specialist Relationship Specialty Start Date End Date Unallocated, Noms Provider Kristian VERGARA [facility] [place] [address] PCP - General Family Medicine 05/05/23 Team Status: Inactive Member Role Status Dates Juanito Deleon APRN Primary Care Pr ovider, Attending Provider Active Start: May 12, 2023 End: May 12, 2023 Team Status: Inactive Member Role Status Dates Juanito Deleon APRN Primary Care Provider Active Start: May 13, 2023 End: May 13, 2023 Nimisha Wilkes APRN Emergency Provider Active Start: May 13, 2023 End: May 13, 2023 Team Status: Inactive Member Role Status Dates Juanito Deleon APRN Primary Care Pr ovider, Attending Provider Active Start: June 04, 2023 End: June 04, 2023 Team Status: Inactive Member Role Status Dates Juanito Deleon APRN Primary Care Pr ovider, Attending Provider Active Start: July 14, 2023 End: July 14, 2023 Insurance Billing Specialist Relationship Specialty Start Date End Date Juanito Deleon CNP [phone] [address] Referring Family Medicine 06/04/23 Insurance Billing Specialist Relationship Specialty Start Date End Date Juanito Deleon CNP [phone] [facility] [place] [address] Referring Family Medicine 06/04/23 Team Status: Inactive Member Role Status Dates Juanito Deleon APRN Primary Care Pr jason, Attending Provider Active Start: December 02, 2023 End: December 02, 2023 Goals (unrecognized section and content) Goals may be documented in a n alternate section Source Comments (unrecognize d section and content) In the event this informatio n is protected by the Federal Confidentiality of Alcohol and Drug Abuse Patient Records regulations: The Federal rules restrict any use of the information to criminally investigate or prosecute any alcohol or drug abuse patient.[facility] the event this information is protected by the Federal Confidentiality of Alcohol and Drug Abuse Patient Records regulations: The Federal rules restrict any use of the information to criminally investigate or prosecute any alcohol or drug abuse patient.[facility] FOR RECORDS PERTAINING TO PATIENTS WHO ARE [...] BE BASED ON THE PRIMARY CLINICAL RECORDS. [facility] [employer] [facility]. provides no warranty or guarantee of the accuracy or completeness of information in this document.
== END 2024-02-03 07:42 | disposition home or self-care (01) ==
LOC: MRI 07:41
PROVIDERS: PCP Nurse Practitioner Family; Visit Provider Podiatrist Foot & Ankle Surgery
DX: S86.312A Strain of muscle(s) and tendon(s) of peroneal muscle group at lower leg level, left leg, initial encounter (principal)
CPT/HCPCS: 73721

== ENCOUNTER 2024-02-23 14:23 | Outpatient (OUT) | payer MEDICAID, SELFPAY ==
--- NOTE | 2024-02-23 15:03 | P.GSHP_ITS ---
History of Present Illness History of Present Illness Chief complaint: Strain of muscle and tendons Left Peroneal Narrative: Patient presents for presurgical testing. Please see HPI from Dr. Mayorga dated February 05, 2024. Review of Systems ROS Narrative REVIEW OF SYSTEMS: Negative except as stated in HPI, ten or more systems reviewed. Constitutional: No fever, chills, weakness ENT: No sore throat or epistaxis Cardiovascular: No edema, chest pain, palpitations, or activity intolerance Respiratory: No shortness of breath, cough, or wheezing Gastrointestinal: No abdominal pain, constipation, diarrhea, or vomiting Genitourinary: No dysuria or hematuria Neurological: No numbness, tingling, weakness, or headache Psychiatric: No mood changes [facility] Medical History (Updated 02/23/24 @ 15:06 by Denise Reynolds NP) Presence of functional implant ?Z96.9 - Presence of functional implant, unspecified (ICD-10) Subluxation of left foot ?S93.302A - Unspecified subluxation of left foot, initial encounter (ICD-10) Strain of muscle(s) and tendon(s) of peroneal muscle group at lower leg level, left leg, initial encounter ?S86.312A - Strain of muscle(s) and tendon(s) of peroneal muscle group at lower leg level, left leg, initial encounter (ICD-10) PTSD (post-traumatic stress disorder) ?F43.10 - Post-traumatic stress disorder, unspecified (ICD-10) Panic attacks ?F41.0 - Panic disorder [episodic paroxysmal anxiety] (ICD-10) Peroneal tendinitis ?M76.70 - Peroneal tendinitis, unspecified leg (ICD-10) Strain of left peroneal muscle or tendon ?S86.312A - Strain of muscle(s) and tendon(s) of peroneal muscle group at lower leg level, left leg, initial encounter (ICD-10) Left ankle instability ?M25.372 - Other instability, left ankle (ICD-10) Heartburn ?R12 - Heartburn (ICD-10) Migraine ?G43.909 - Migraine, unspecified, not intractable, without status migrainosus (ICD-10) Anxiety ?F41.9 - Anxiety disorder, unspecified (ICD-10) Depression ?F32.A - Depression, unspecified (ICD-10) PONV (postoperative nausea and vomiting) ?R11.2 - Nausea with vomiting, unspecified (ICD-10) ?Z98.890 - Other specified postprocedural states (ICD-10) Menorrhagia ?N92.0 - Excessive and frequent menstruation with regular cycle (ICD-10) Dysmenorrhea ?N94.6 - Dysmenorrhea, unspecified (ICD-10) Abnormal uterine bleeding (AUB) ?N93.9 - Abnormal uterine and vaginal bleeding, unspecified (ICD-10) GERD (gastroesophageal reflux disease) ?K21.9 - Gastro-esophageal reflux disease without esophagitis (ICD-10) Fibromyalgia ?M79.7 - Fibromyalgia (ICD-10) Kidney stones (~2012) ?N20.0 - Calculus of kidney (ICD-10) Anemia (~2014) ?D64.9 - Anemia, unspecified (ICD-10) Leg pain ?M79.606 - Pain in leg, unspecified (ICD-10) Pain, dental ?K08.89 - Other specified disorders of teeth and supporting structures (ICD- 10) Flank pain ?R10.9 - Unspecified abdominal pain (ICD-10) Headache ?R51.9 - Headache, unspecified (ICD-10) Plantar fasciitis ?M72.2 - Plantar fascial fibromatosis (ICD-10) Equinus contracture of ankle ?M24.573 - Contracture, unspecified ankle (ICD-10) Foot pain ?M79.673 - Pain in unspecified foot (ICD-10) Posterior tibial tendon dysfunction (PTTD) of right lower extremity ?M76.821 - Posterior tibial tendinitis, right leg (ICD-10) Hypertension ?I10 - Essential (primary) hypertension (ICD-10) Superficial laceration of thumb (10/22/20) ?S61.019A - Laceration without foreign body of unspecified thumb without damage to nail, initial encounter (ICD-10) Surgical History (Updated 02/18/24 @ 08:31 by Denise Reynolds NP) History of ankle surgery (04/16/23) ?Z98.890 - Other specified postprocedural states (ICD-10) H/O arthroscopy of knee ?Z98.890 - Other specified postprocedural states (ICD-10) H/O section (~2014) ?Z98.891 - History of uterine scar from previous surgery (ICD-10) History of cholecystectomy (~2012) ?Z90.49 - Acquired absence of other specified parts of digestive tract (ICD- 10) H/O tubal ligation ?Z98.51 - Tubal ligation status (ICD-10) H/O foot surgery (12/22/19) ?Z98.890 - Other specified postprocedural states (ICD-10) History of endometrial ablation (01/04/21) ?Z98.890 - Other specified postprocedural states (ICD-10) Family History (Updated 04/07/23 @ 13:27 by Denise Reynolds NP) Other Family history of cancer Family history of diabetes mellitus Family history of hypertension Family history of stroke Social History (Updated 02/23/24 @ 14:46 by Denise Reynolds NP) Within the past year, how often did you have a drink containing alcohol: monthly or less Smoking status: Former smoker Non-prescribed substance use: denies use 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 Highest level of school completed/degree received: high school graduate Meds Home Medications and Allergies Home Medications ?Medication ?Instructions ?Recorded ?Confirmed ?Type amlodipine 5 mg tablet 5 mg PO DAILY 09/05/22 02/23/24 History lisinopril 20 2 tab PO DAILY 04/07/23 02/23/24 History mg-hydrochlorothiazide 12.5 mg tablet omeprazole 20 mg capsule,delayed 20 mg PO DAILY PRN heartburn 04/07/23 02/23/24 History release phentermine 37.5 mg tablet 37.5 mg PO DAILY 02/23/24 02/23/24 History (Adipex-P) Allergies Allergy/AdvReac Type Severity Reaction Status Date / Time hydrocodone (From Vicodin) Allergy Severe Hives Verified 04/16/23 06:34 Exam Narrative Exam Narrative: Constitutional: Awake, alert, comfortable, well-appearing, nontoxic, interactive, vital signs as charted Head: Normocephalic, atraumatic Neck: Supple, normal appearance, normal range of motion, no meningeal signs, no lymphadenopathy Respiratory: No respiratory distress, breath sounds clear Cardiovascular: Regular rate and rhythm, strong and regular heart tones Skin: No rashes or induration, no lesions, only visible skin inspected Neuro: No neurological deficits, normal sensation Psychiatric: Oriented ?3, normal affect Assessment and Plan Assessment and Plan (1) Strain of muscle(s) and tendon(s) of peroneal muscle group at lower leg level, left leg, initial encounter: (2) Subluxation of left foot: Qualifiers: Qualified Code(s): S93.302A - Unspecified subluxation of left foot, initial encounter (3) Presence of functional implant: Plan Left peroneal tendon transfer versus debridement, stress exam under fluoroscopy, possible lateral ankle stabilization, possible hardware removal scheduled with Dr. Mayorga February 29, 2024.
== END 2024-02-23 14:24 | disposition home or self-care (01) ==
LOC: PST 14:24
PROVIDERS: PCP Nurse Practitioner Family; Visit Provider Podiatrist Foot & Ankle Surgery
DX: Z01.812 Encounter for preprocedural laboratory examination (principal); Z01.818 Encounter for other preprocedural examination; S86.312A Strain of muscle(s) and tendon(s) of peroneal muscle group at lower leg level, left leg, initial encounter
CPT/HCPCS: G0463

== ENCOUNTER 2024-02-29 06:02 | Day surgery (SDC) | payer MEDICAID, SELFPAY ==
[2024-02-23 14:58] VITALS: BP 113/77; PULSE 75; TEMP 36.3; O2SAT 98; BMI 46.5
[2024-02-29] VITALS (18 sets, daily range): BP systolic 109–144; BP diastolic 58–77; PULSE 54–78; TEMP 36.2; O2SAT 87–97; BMI 47.2
--- NOTE | 2024-02-29 | FL_ITS ---
[address] [address] Patient Name: JOLENE VALENTINO MRN: [id number] date: 1990 Sex: F Assigned Patient Location: [facility] Current Patient Location: [facility] Accession/Order Number: [id number] Exam Date: 02/29/2024 08:45 Report Date: 02/29/2024 09:55 At the request of: REGIS VELEZ Procedure: FL fluoroscopy <1hr NON-READ EXAM: FL fluoroscopy <1hr NON-READ HISTORY: TECHNIQUE: FINDINGS: Please see Operative Report. Electronically authenticated by: RADIOLOGIST NO Date: 02/29/2024 09:55
--- OUTSIDE RECORDS SUMMARY | 2024-02-29 06:05 | XMS_ITS | CCD ---
Author Organization [facility] Care Team Providers Care Decal Maker Name Role Phone Juanito Deleon Unavailable Natalie Blackwell Unavailable Johann Moe Unavailable EASTERWOOD, JUANITO Admitting Unavailable EASTERWOOD, JUANITO Primary Care Unavailable EASTERWOOD, JUANITO Attending Unavailable BARRINGTON KEARNS Attending Unavailable EASTERWOOD, JUANITO Primary Care Unavailable AMARI .AMBROCIO Consulting Unavailabl e BARRINGTON KEARNS Admitting Unavailable NATALIE HERNANDEZ Consulting Unavailable BEKA REYNOSO Consulting Unavailable EASTERWOOD, JUANITO Attending Unavailable DUMONT, [...] EASTERWOOD, JUANITO Consulting Unavailable Moises Mccabe Unavailable Neftali Snow Unavailable RUTH ANN Deleon Primary Care Provider [phone] MD Johann Moe Attending Provider [phone] Uriah Skinner Unavailable Elinor Workman Unavailable RUTH ANN Deleon Primary Care Provider RUTH ANN Deleon Attending Provider MD Uriah Skinner Attending Provider MD Karoline Londono Jr Emergency Provider MD Uriah Skinner Attending Provider ROSE Mayorga Attending Provider [phone] GAYE Alegria Emergency Provider Unallocated, [place] Provider Primary Care Provider RUTH ANN Wilkes Emergency Provider ROSE Mayorga Attending Provider RUTH ANN Deleon Primary Care Provider [phone] GAYE Alegria Emergency Provider [phone] RUTH ANN [place]kes Emergency Provider [phone] RUTH ANN Deleon Attending Provider [facility] RIAZ, Juanito Unavailable JUDE APONTE Attending Unavailable MELISSA DORSEY Attending Unavailable MOON OLEA Attending Unavailable RUTH ANN Deleon Primary Care Provider MD Karoline Londono Jr Emergency Provider JUANITO DELEON Primary Care Physician [phone] RUTH ANN Deleon Primary Care Provider [phone] RIAZ DELEON JUANITO Admitting Unavailable EASTERWOOD, RIAZ JUANITO Attending Unavailable Wesly Lopez Attending Unavailable EASTERWOOD, RIAZ SOLOMON Attending Unavailable EASTERWOOD, RIAZ JUANITO Admitting Unavailable RUTH ANN Deleon Attending Provider [phone] Juanito Deleon Attending Unavailable Juanito Deleon Admitting Unavailable Juanito Deleon Primary Care Unavailable Juanito Deleon Admitting Unavailable Juanito Deleon Primary Care Unavailable Juanito Deleon Attending Unavailable Karoline Londono Jr Admitting Unavailable Karoline Londono Jr Attending Unavailable Juanito Deleon Primary Care Unavailable Juanito Deleon Primary Care Unavailable Graham Olson Admitting Unavailable Graham Olson Attending Unavailable Karoline Londono Jr Admitting Unavailable Karoline Londono Jr Attending Unavailable Juanito Deleon Primary Care Unavailable Markie Alegria Admitting Unavailable Markie Alegria Attending Unavailable Juanito Deleon Primary Care Unavailable Nimisha Wilkes Admitting Unavailable JaquelineeNimisha Attending Unavailable Juanito Deleon Primary Care Unavailable Mark Mayorga Attending Unavailable Mark Mayorga Admitting Unavailable Allergies Allergy Classification Reported Allergen(s) Allergy Type Date of Onset Reaction(s) Facility Acetaminophen (2 sources) Acetaminophen Drug Allergy 4 itching and hives [facility] busPIRone (2 sources) busPIRone Drug Allergy 4 [facility] Cephalosporins (antibiotic) (2 sources) Cephalexin Drug Allergy 4 [place] [facility]on[facility] (2 sources) HYDROcodone Drug Allergy 4 Itching, itching and hives [facility] (20 sources) Acetaminophen / HYDROcodone; Translations: [Vicodin] Drug Allergy 6 itching and hives, rash [facility] Rep[facility] (20 sources) busPIRone Drug Allergy 2 [employer] Other (20 sources) Cephalexin Drug Allergy 3 [place] (1 source) Cephalexin Drug Allergy 2 [facility] (14 sources) HYDROcodone; Translations: [hydrocodone] Drug Allergy 9 Itching, Itching, itching and hives [facility] (11 sources) Acetaminophen; Translations: [acetaminophen] Drug Allergy 4 itching and hives [facility] (11 sources) busPIRone; Translations: [buspirone] Drug Allergy [facility] (5 sources) Acetaminophen / HYDROcodone; Translations: [HYDROCODONE-ACET AMINOPHEN] Drug Allergy [address] [facility] (2 sources) DULoxetine; Translations: [duloxetine] Drug Allergy 4 [facility] (1 source) Cephalexin Drug Allergy 4 [facility] Repository Medications Current Medications Medication Drug Class(es) Dates [...] D2) Active 1250 MCG PO every week 12 July 14, 2023 12:00am hydroCHLOROthiazide 25 mg [...] Start: 02-14-2022 take 1 capsule by mo ut once daily Omeprazole 40 MG 1 capsule 30 minutes before morning meal Orally Once a day for 90 days Jan, Active Start: 02-14-2022 End: 05-11-2023 take 20 mg by mouth once daily Omeprazole Discontinued 20 MG PO Daily July 28, 2022 12:00am May 11, 2023 6:39pm Start: 09-17-2021 take 1 capsule by mo ut every twenty-four hours Omeprazole 10 MG 1 [...] Pain, # 30 tab(s), Refills(s) 0, Pharmacy: Mobile Card #24, 152, cm, 10/23/23 22:39:00 EDT, Height/Length [...] Provider: Zion Payton take 2 tablets by mo [facility] once daily Lisinopril-hydroCHLOROthiazide 20-12.5 M G 2 tablet Orally Once a day Active take 2 tablets by mo uth every twenty-four hours Insulin [place] (Disposable) (20 sources) Start: 05-11-2023 End: 05-12-2023 Insulin [place] (Disposable) Discontinued 0 .Route May 11, 2023 6:51pm May 12, 2023 12:54pm 30G X 5 MM Start: 05-11-2023 End: 05-12-2023 Insulin [place] (Disposable) Discontinued 0 .Route May 11, 2023 5:51pm May 12, 2023 11:54am 30G X 5 MM Start: 05-11-2023 Insulin [place] (Disposable) Active 0 .Route May 11, 2023 5:51pm 30G X 5 MM Start: 05-11-2023 End: 05-11-2023 Insulin [place] (Disposable) Discontinued 0 .Route May 11, 2023 1:00am May 11, 2023 6:52pm As directed Start: 05-11-2023 End: 05-11-2023 Insulin [place] (Disposable) Discontinued 0 .Route May 11, 2023 [...] Start: 10-14-2022 take 1 tablet by wing every twenty-four hours metFORMIN HCl ER 500 [...] (15 sources) Nausea; Translations: [Nausea] 05-12-2023 Episodic Nutritional deficiencies (17 sources) Vitamin D deficiency; Translations: [Vitamin D deficiency, unspecified] 07-14-2023 Chronic Other aftercare (1 source) Other fci (current) drug therapy; Translations: [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] Onset: 3 Episodic Other aftercare (1 source) Encounter for follow-up examination after completed treatment for conditions other than malignant neoplasm Episodic Other aftercare (1 source) Encounter for therapeutic drug level monitoring Episodic Other connective tissue disease (20 sources) [...] elsewhere classified] 05-11-2023 Chronic Other liver diseases (4 sources) Fatty (change of) liver, not elsewhere classified Onset: 2 Resolved: 2 Chronic Other lower [...] Problem Classification Problem Date Documented Date Episodic/Chronic Contraceptive and procreative management (2 sources) Contraception status; Translations: [Encounter for other contraceptive management] Onset: 07-11-2015 07-11-2015 Episodic Nonspecific chest pain (6 sources) Non-cardiac chest pain; Translations: [Other chest pain] Onset: 10-03-2023 10-03-2023 Episodic Other connective tissue disease (1 source) [...] SCREENING MALIG NEOPLASM CERV] Onset: 07-10-2021 Episodic Otitis media and related conditions (20 sources) Acute mastoiditis; Translations: [Acute mastoiditis without complications, unspecified ear] Onset: 05-07-2023 05-07-2023 Episodic Ovarian cyst (2 sources) Cyst of [...] (20 sources) Gynecological examination normal; Translations: [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 Rate : 66 BPM Atrial Rate : 66 BPM P-R Int : 168 ms QRS Dur : 84 ms QT Int : 402 ms P-R-T Axes : 36 74 12 degrees QTcB Int : 421 ms Normal sinus rhythm nonspecific st findings Confirmed by Graham Olson DO ([id number]) on 02/20/2024 9:19:58 PM Referred By: Electronically Signed By: Graham Olson DO Transcribed By: MUS Signed By Graham Olson DO 2119 Normal [facility] B-Type Natriuretic Peptideon 02-19-2024 Natriuretic peptide B (Bld) [Mass/Vol] 24.0 pg/mL Normal 5-100 [facility] Comment on above: Result Comment: PERF ORMED BY: [place] [id number] PATHOLOGIST CLINICAL BIOSTATISTICIAN AURELIO HAYDEN M.D. Performed By: #### E SR, CRP, CBC, BMP #### [facility] [address] Basic Metabolic Panelon 11-2 Anion gap [Moles/Vol] 6.7 mmol/L Normal 6.0-15.0 [facility] Comment on above: Performed By: #### E SR, CRP, CBC, BMP #### [address] Calcium [Mass/Vol] 9.8 mg/dL Normal 8.6-10.3 The [facility] Comment on above: Performed By: #### E SR, CRP, CBC, BMP #### [place] [address] [place] Chloride [Moles/Vol] 103 mmol/L Normal 98-107 [facility] Comment on above: Performed By: #### E SR, CRP, CBC, BMP #### [address] CO2 [Moles/Vol] 29.0 mmol/L Normal 21.0-31.0 The [facility] Comment on above: Performed By: #### E SR, CRP, CBC, BMP #### [facility] [address] [place] [address] [place] Creatinine [Mass/Vol] 0.72 mg/dL Normal 0.60-1.20 [facility] Comment on above: Performed By: #### E SR, CRP, CBC, BMP #### [facility] [address] [place] [address] [place] Creatinine Clr Calc Pharmacy 124.88 Normal [facility] Comment on above: Result Comment: PERF ORMED BY: [place] [id number] PATHOLOGIST CLINICAL BIOSTATISTICIAN AURELIO HAYDEN M.D. Performed By: #### E SR, CRP, CBC, BMP #### [address] GFR/1.73 sq M.predicted MDRD (S/P/Bld) [Vol rate/Area] mL/min/{1.73_m2} Normal [facility] Comment on above: Performed By: #### E SR, CRP, CBC, BMP #### [address] Glucose [Mass/Vol] 106 mg/dL High 70-100 The [facility] Comment on above: Result Comment: [place] Glucose Reference Range is dependent on time and content of last meal. Glucose of more than 200 mg/dL in a nonstressed, ambulatory subject supports the diagnosis of Diabetes Mellitus. ADA recommended reference range Performed By: #### E SR, CRP, CBC, BMP #### [address] Potassium [Moles/Vol] 3.7 mmol/L Normal 3.5-5.1 [facility] Comment on above: Performed By: #### E SR, CRP, CBC, BMP #### [address] Sodium [Moles/Vol] 135 mmol/L Low 136-145 [facility] Comment on above: Performed By: #### E SR, CRP, CBC, BMP #### [address] Urea nitrogen [Mass/Vol] 13 mg/dL Normal 7-25 [facility] Comment on above: Performed By: #### E SR, CRP, CBC, BMP #### [address] Complete Blood Count Auto Di ffon 02-19-2024 Basophils (Bld) [#/Vol] 0.0 10*3/uL Normal 0.0-0.2 [facility] Comment on above: Result Comment: PERF ORMED BY: [place] [id number] PATHOLOGIST CLINICAL BIOSTATISTICIAN AURELIO HAYDEN M.D. Performed By: #### E SR, CRP, CBC, BMP #### [address] Basophils/100 WBC (Bld) 0.5 % Normal . [facility] Comment on above: Performed By: #### E SR, CRP, CBC, BMP #### [address] Eosinophils (Bld) [#/Vol] 0.1 10*3/uL Normal 0.0-0.45 [facility] Comment on above: Performed By: #### E SR, CRP, CBC, BMP #### [address] Eosinophils/100 WBC (Bld) 0.7 % Normal . [facility] Comment on above: Performed By: #### E SR, CRP, CBC, BMP #### [address] Erythrocyte distribution width (RBC) [Ratio] 13.4 % Normal 11.9-15.3 [facility] Comment on above: Performed By: #### E SR, CRP, CBC, BMP #### [address] Hematocrit (Bld) [Volume fraction] 39.0 % Normal 34.0-46.4 [facility] Comment on above: Performed By: #### E SR, CRP, CBC, BMP #### [address] Hemoglobin (Bld) [Mass/Vol] 13.1 g/dL Normal 11.8-15.4 [facility] Comment on above: Performed By: #### E SR, CRP, CBC, BMP #### [address] Lymphocytes (Bld) [#/Vol] 3.0 10*3/uL Normal 1.00-4.8 [facility] Comment on above: Performed By: #### E SR, CRP, CBC, BMP #### [address] Lymphocytes/100 WBC (Bld) 29.7 % Normal . [facility] Comment on above: Performed By: #### E SR, CRP, CBC, BMP #### [address] MCH (RBC) [Entitic mass] 29.1 pg Normal 24.7-34.3 [facility] Comment on above: Performed By: #### E SR, CRP, CBC, BMP #### [address] MCV (RBC) [Entitic vol] 86.4 fL Normal 80-100 [facility] Comment on above: Performed By: #### E SR, CRP, CBC, BMP #### [address] Mean Corpuscular HGB Conc 33.7 g/dL Normal 32.0-35.0 [facility] Comment on above: Performed By: #### E SR, CRP, CBC, BMP #### [address] Monocytes (Bld) [#/Vol] 0.4 10*3/uL Normal 0.0-0.8 [facility] Comment on above: Performed By: #### E SR, CRP, CBC, BMP #### [place] [address] [place] Monocytes/100 WBC (Bld) 19.30 % Normal 0.00-20.00 [facility] Comment on above: Performed By: #### E SR, CRP, CBC, BMP #### [address] Monocytes/100 WBC (Bld) 3.5 % Normal . [facility] Comment on above: Performed By: #### E SR, CRP, CBC, BMP #### [address] Neutrophils (Bld) [#/Vol] 6.7 10*3/uL Normal 1.8-7.7 [facility] Comment on above: Performed By: #### E SR, CRP, CBC, BMP #### [address] Neutrophils/100 WBC (Bld) 65.6 % Normal . [facility] Comment on above: Performed By: #### E SR, CRP, CBC, BMP #### [address] NRBC% 0.1 /100{WBC} Normal 0-0.5 The [facility] Comment on above: Performed By: #### E SR, CRP, CBC, BMP #### [address] Platelet mean volume (Bld) [Entitic vol] 8.4 fL Normal 6.3-10.7 The [facility] Comment on above: Performed By: #### E SR, CRP, CBC, BMP #### [address] Platelets (Bld) [#/Vol] 276 10*3/uL Normal 150-450 [facility] Comment on above: Performed By: #### E SR, CRP, CBC, BMP #### [address] RBC (Bld) [#/Vol] 4.52 10*6/uL Normal 3.60-5.00 The [facility] Comment on above: Performed By: #### E SR, CRP, CBC, BMP #### [address] WBC (Bld) [#/Vol] 10.2 10*3/uL Normal 3.8-11.6 The [facility] Comment on above: Performed By: #### E SR, CRP, CBC, BMP #### [address] Creatine Kinaseon 02-19-2024 CK [Catalytic activity/Vol] 34 U/L Normal 30-223 [facility] Comment on above: Performed By: #### E SR, CRP, CBC, BMP #### [facility] [address] [place], [place] [id number] [facility] ECG 12 lead ECGon 02-19-2024 ECG 12 lead ECG [facility] Main [place] [address] [place] [address] Electrocardiograph Report Signed Patient: Lisandra Solis MR#: [id number] 54 : 1990 Acct:[id number] Age/Sex: 33 / F ADM Date: 02/19/24 Loc: ER Room: Type: [facility] ER Attending Dr: Ordering Provider: Graham Olson DO Date of Service: 02/19/24 ECG/ECG 12 lead ECG: cp Copies to: Test Reason : Blood Pressure : */* mmHG Vent. Rate : 83 BPM Atrial Rate : 83 BPM P-R Int : 152 ms QRS Dur : 78 ms QT Int : 364 ms P-R-T Axes : 40 77 13 degrees QTcB Int : 427 ms Normal sinus rhythm Nonspecific T wave abnormality Confirmed by Graham Olson DO ([id number]) on 02/20/2024 9:20:25 PM Referred By: Electronically Signed By: Graham Olson DO Transcribed By: MUS Signed By Graham Olson DO 2119 Normal [facility] Prothrombin Time INRon 02-18 INR Coag (PPP) [Relative time] 0.9 {INR} Normal [facility] Comment on above: Result Comment: INR Therapeutic Range A) Pre- [...] with mechanical heart valves: 3 - 4.5 PERFORMED BY: [place] [id number] PATHOLOGIST CLINICAL BIOSTATISTICIAN AURELIO HAYDEN M.D. Performed By: #### E SR, CRP, CBC, BMP #### [address] PT Coag (PPP) [Time] 10.9 s Normal 9.0-12.9 [facility] Comment on above: Result Comment: A he matocrit value greater than 55% may lead to inaccurate results in coagulation testing. Patients having hematocrit values >55% require a special collection tube for coagulation studies. Please contact the laboratory at [phone] for redraw instructions. Performed By: #### E SR, CRP, CBC, BMP #### [address] Troponin I High Sensitivityo n 02-19-2024 Troponin I High Sensitivity <2.3 Normal 0.0-15.0 [facility] Comment on above: Result Comment: PERF ORMED BY: [place] [id number] PATHOLOGIST CLINICAL BIOSTATISTICIAN AURELIO HAYDEN M.D. Performed By: #### E SR, CRP, CBC, BMP #### [address] XR chest 1V portableon 02-18 XR chest 1V portable [facility] Main [place] [address] [place] [address] XRay Report Signed Patient: Lisandra Solis MR#: [id number] [birth year] : 1990 Acct:[id number] Age/Sex: 33 / F ADM Date: 02/19/24 Loc: ER Room: Type: PRE ER Attending Dr: Copies to: Graham Olson DO Ordering Provider: Graham Olson DO Date of Service: 02/19/24 XR/XR chest 1V portable: Chest Pain SINGLE VIEW CHEST CLINICAL HISTORY: Sternal chest pain radiating to right side. COMPARISON: Chest 10/03/2023 FINDINGS: Heart normal size. Lungs are clear. No free air. XR/XR chest 1V portable IMPRESSION: NO ACUTE FINDINGS Impression dictated by: Jeet Pascual Jr. D.OErin02/19/2024 11:24 PM Dictation Location: [place] [address] Transcribed By: MOODY 02/19/242323 Dictated By: Jeet Pascual Jr DO 02/19/242322 Signed By: 02/19/242323 Normal [facility] US renal BIon 11-20-2023 US renal BI [facility] Main [place] [id number] Ultrasound Report Signed Patient: Lisandra Solis MR#: [id number] [birth year] : 1990 Acct:[id number] Age/Sex: 33 / F ADM Date: 11/20/23 Loc: UL Room: Type: REG CLI Attending Dr: Juaniot Deleon APRN Ordering Provider: Juanito Deleon APRN [...] findings. 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 Ordering Provider: Juanito Deleon APRN Date of [...] Raghav Resendez M.D.11/20/2023 10:28 AM Dictation Location: [place] [address] Tech: Namrata Everton Transcribed By: MOODY 11/20/23 1028 Dictated By: Raghav Resendez MD 11/20/23 1025 Signed By: 11/20/23 1028 Normal [facility] B hCG Qualon 11-02-2023 Beta HCG ( test) Ql Negative Normal [facility] Comment on above: Performed By: #### 2 [id number] #### [facility] [address] [place] [id number] Beta-human chorionic gonadot ropin (BhCG) detectionon 11-02-2023 HCG.beta subunit Ql (Unsp spec) 1 mIU/mL 1-3 [facility] BhCG Quanton 11-02-2023 HCG.beta subunit Qn 1 m[IU]/mL Normal 1-3 [facility] Comment on above: Result Comment: 'F N ON < 1 - 3' ' 0.2 - 1 WEEK = 5 TO 50' ' 1 - 2 WEEKS = 50 - 500' ' 2 - 3 WEEKS = 100 - 5000' ' 3 - 4 WEEKS = 500 - 51419' ' 4 - 5 WEEKS = 1000 - 58347' ' 5 - 6 WEEKS = 08635 - 315920' ' 6 - 8 WEEKS = 06775 - 315495' ' 8 - 12 WEEKS = 18476 - 502416' Performed By: #### 2 [id number] #### [facility] [address] [place] [address] CHEMISTRYOrdered By: SYSTEM SYSTEM on 11-02-2023 HCG.beta [...] 3 - 4 WEEKS = 500 - 74386' ' 4 - 5 WEEKS = 1000 - 34411' ' 5 - 6 WEEKS = 84371 - 572153' ' 6 - 8 WEEKS = 56442 - 457203' ' 8 - 12 WEEKS = 00814 - 010404' No Panel Informationon 11-01 Human Chorionic Gonadotropin, Qual Negative [facility] SEROLOGYOrdered By: Maggi Conroy on 11-02-2023 Beta HCG ( test) Ql Negative (11/02/23 3:27 PM) Normal [facility] Man Sero XR Ankle 3+ Views Lefton [...] in mGy = n/a DAP = n/a Normal [facility] XR Foot 3+ Views Lefton 09-28 [...] in mGy = n/a DAP = n/a Normal [facility] ED Clinical Summaryon 2023 ED Clinical Summary ED Clinical Summary [place] [address] ED Clinical Summary Person Information Name: LISANDRA SOLIS/[facility] Age: 33 Years : 1990 Sex: Female Language: Stateless PCP: JUANITO DELEON CNP Marital Status: Single [...] 10/23/2023 23:40:30 10/23/2023 23:40:30 10/23/2023 23:40:30 ADDRESS: [address] [place] [id number] PHYS DOC NOTES: MEDICAL INFORMATION: Prescriptions Given: New Medications Mobile Card #24, [address] [place] [phone], [phone] diflunisal (diflunisal 500 mg Tab) 1 Tablets [...] 0. PATIENT EDUCATION INFORMATION: Instructions: Ankle Sprain, [id number] Follow up: With: Address: When: Call to schedule a follow-up appointment with your orthopedic surgeon for further management of care. Use the diflunisal as needed for pain. Do not use ibuprofen or naproxen with this as they are in the same family class. Return to the ED with any wors In 3 days 10/26/2023 With: Address: When: JUANITO PAGESEDGWICK [address] [place] [address] [phone] Business (1) In 3 days DIAGNOSIS: Post-operative complication Normal [facility] ED Note-Physicianon 10-23-19 ED Note-Physician ED [...] In 3 days 10/26/2023 EDT Additional Instructions: JUANITOCameron DELEON In 3 days [address] [place] [address]- [phone] Business (1) Additional Instructions: Patient Education Ankle Sprain, [id number] Attestation Patient seen and evaluated by the physician assistant branch manager. Attending physician was present in the emergency department and supervised care. This visit was performed by both the physician and an APC. I performed all aspects of the MDM as documented. This report was transcribed using voice recognition software. Every effort was made to ensure accuracy, however, inadvertently computerized commercial field inspector mistakes may be present. Appropriate healthcare PPE [...] (Discussion) M (more content not included)... Normal [facility] Comment on above: Result Comment: Elec tronically Signed By: Alyx De La Vega PA-C\.br\Date and Time Signed: 10/23/23 23:39 EDT\.br\Electronically Co-Signed By: Wesly Lopez DO\.br\Date and Time Co-Signed: 10/23/23 23:47 EDT ED Patient Summaryon ED Patient Summary ED Patient [id number] Patient Discharge Instructions Person Information Name: LISANDRA SOLIS Age: 33 Years Arrival Date: 10/23/2023 22:24:58 Discharge Diagnosis: Post-operative complication Primary Care Physician: JUANITO DELEON CNP Provider Information Primary Provider: Wesly Lopez DO Advanced Medical Billing Instructor:Alyx De La Vega PA-C The exam and treatment you received in the Emergency Department were for an urgent problem and are not intended as complete care. It is important that you follow up with a doctor, nurse practitioner, or physician?s assistant branch manager for ongoing care. If your symptoms become [...] 3 days 10/26/2023 With: Address: When: JUANITO LISABROOKS [address] [place] [phone] Business (1) In 3 days In the event that this physician does not participate in your insurance network, please consult with your insurance company to find a nearby participating provider. Patient Education Materials: Ankle Sprain, Dvjb-nz-Gceg A MESSAGE TO ALL PATIENTS REGARDING OPIOIDS PRESCRIPTION OPIOIDS: WHAT YOU NEED TO KNOW Prescription opioids can be used to help relieve nvrwocwq-qy-skgiob pain and are often prescribed following a [...] Drug Administra (more content not included)... Normal [facility] XR chest 2V*on 10-04-2023 XR chest 2V* [facility] Main [place] [address] [place] [address] XRay Report Signed Patient: Lisandra Solis MR#: [id number] 54 : 1990 Acct:[id number] Age/Sex: 33 / F ADM Date: 10/03/23 Loc: ER Room: Type: [facility] ER Attending Dr: Copies to: Karoline Londono [...] Radha Crook M.D.10/04/2023 8:45 AM Dictation Location: [place] [address] Transcribed By: [facility] 10/04/23 0845 Dictated By: Radha Crook MD 10/04/23 0844 Signed By: 10/04/23 0845 Normal [facility] Activated partial thrombopla stin time (aPTT) in platelet poor plasma by coagulation aOrdered By: Karoline Londono on 10-03-2023 aPTT Coag (PPP) [Time] 32.7 s 25.1-36.5 [facility] Comment on above: A hematocrit value g reater than 55% may lead to inaccurate results in coagulation testing. Patients having hematocrit values >55% require a special collection tube for coagulation studies. Please contact the laboratory at [phone] for redraw instructions. Automated basophil %Ordered By: Karoline Londono on 10-03-2023 Basophils/100 WBC (Bld) 0.6 % Normal . [facility] Comment on above: Performed By: #### E SR, CRP, CBC, BMP #### [place] [id number] [facility] Automated basophil countOrde red By: Karoline Londono on 10-03-2023 Basophils (Bld) [#/Vol] 0.1 10*3/uL Normal 0.0-0.2 [facility] Comment on above: Result Comment: PERF ORMED BY: [place] [id number] PATHOLOGIST CLINICAL BIOSTATISTICIAN TRI ASH M.D. Performed By: #### E SR, CRP, CBC, BMP #### [address] Automated blood monocyte cou ntOrdered By: Karoline Londono on 10-03-2023 Monocytes (Bld) [#/Vol] 0.6 10*3/uL Normal 0.0-0.8 [facility] Comment on above: Performed By: #### E SR, CRP, CBC, BMP #### [address] Automated eosinophil %Ordere d By: Karoline Londono on 10-03-2023 Eosinophils/100 WBC (Bld) 0.8 % Normal . [facility] Comment on above: Performed By: #### E SR, CRP, CBC, BMP #### [address] Automated eosinophil countOr dered By: Karoline Londono on 10-03-2023 Eosinophils (Bld) [#/Vol] 0.1 10*3/uL Normal 0.0-0.45 [facility] Comment on above: Performed By: #### E SR, CRP, CBC, BMP #### [address] Automated monocyte %Ordered By: Karoline Londono on 10-03-2023 Monocytes/100 WBC (Bld) 6.5 % Normal . [facility] Comment on above: Performed By: #### E SR, CRP, CBC, BMP #### [address] Automated neutrophil %Ordere d By: Karoline Londono on 10-03-2023 Neutrophils/100 WBC (Bld) 65.6 % Normal . [facility] Comment on above: Performed By: #### E SR, CRP, CBC, BMP #### [address] BNP ser/plasOrdered By: Prashant Londono on 10-03-2023 Natriuretic peptide B (Bld) [Mass/Vol] 30.0 pg/mL Normal 5-100 [facility] Comment on above: Result Comment: PERF ORMED BY: [place] [id number] PATHOLOGIST CLINICAL BIOSTATISTICIAN TRI ASH M.D. Performed By: #### E SR, CRP, CBC, BMP #### [address] Basic Metabolic Panelon Creatinine Clr Calc Pharmacy 114.63 Normal [facility] Comment on above: Result Comment: PERF ORMED BY: [place] [id number] PATHOLOGIST CLINICAL BIOSTATISTICIAN TRI ASH M.D. Performed By: #### E SR, CRP, CBC, BMP #### [address] GFR/1.73 sq M.predicted MDRD (S/P/Bld) [Vol rate/Area] mL/min/{1.73_m2} Normal [facility] Comment on above: Performed By: #### E SR, CRP, CBC, BMP #### [address] Calcium [Mass/volume] in Ser um or PlasmaOrdered By: Karoline Londono on 10-03-2023 Calcium [Mass/Vol] 9.8 mg/dL Normal 8.6-10.3 [facility] Comment on above: Performed By: #### E SR, CRP, CBC, BMP #### [address] Carbon dioxide, total [Moles /volume] in Serum or PlasmaOrdered By: Karoline Londono on 10-03-2023 CO2 [Moles/Vol] 26.1 mmol/L Normal 21.0-31.0 [facility] Comment on above: Performed By: #### E SR, CRP, CBC, BMP #### [address] Chloride [Moles/volume] in S damion or PlasmaOrdered By: Karoline Londono on 10-03-2023 Chloride [Moles/Vol] 106 mmol/L Normal 98-107 [facility] Comment on above: Performed By: #### E SR, CRP, CBC, BMP #### [address] Complete Blood Count Auto Di ffon 10-03-2023 Mean Corpuscular HGB Conc 34.0 g/dL Normal 32.0-35.0 [facility] Comment on above: Performed By: #### E SR, CRP, CBC, BMP #### [address] Monocytes/100 WBC (Bld) 18.73 % Normal 0.00-20.00 [facility] Comment on above: Performed By: #### E SR, CRP, CBC, BMP #### [address] NRBC% 0.0 /100{WBC} Normal 0-0.5 [facility] Comment on above: Performed By: #### E SR, CRP, CBC, BMP #### [address] Creatinine [Mass/volume] in Serum or PlasmaOrdered By: Karoline Londono on 10-03-2023 Creatinine [Mass/Vol] 0.78 mg/dL Normal 0.60-1.20 [facility] Comment on above: Performed By: #### E SR, CRP, CBC, BMP #### [address] D-Dimer High Sensitivityon 0 10-03-2023 D-Dimer High Sensitivity < 200 Normal 0-243 [facility] Comment on above: Result Comment: [...] coagulation studies. Please contact the laboratory at [phone] for redraw instructions. PERFORMED BY: [place] [id number] PATHOLOGIST CLINICAL BIOSTATISTICIAN TRI ASH M.D. Performed By: #### E SR, CRP, CBC, BMP #### [place] [id number] [facility] ECG 12 lead ECGon 10-03-2023 ECG 12 lead ECG [facility] Main [place] [address] [place] [address] Electrocardiograph Report Signed Patient: Lisandra Solis MR#: [id number] [birth year] : 1990 Acct:[id number] Age/Sex: 33 / F ADM Date: 10/03/23 Loc: ER Room: Type: [facility] ER Attending Dr: Ordering Provider: Karoline Londono [...] QT has shortened Confirmed by DENA SMITH FACC, ISMAEL ([id number]) on 10/06/2023 3:55:23 PM Referred By: Electronically Signed By:ISMAEL FERNANDES MD, FACC Transcribed By: MUS Signed By Ismael Fernandes MD, FACC 10/06/23 1555 Normal [facility] Erythrocyte distribution wid th [Ratio] by Automated countOrdered By: Karoline Londono on 10-03-2023 Erythrocyte distribution width (RBC) [Ratio] 13.0 % Normal 11.9-15.3 [facility] Comment on above: Performed By: #### E SR, CRP, CBC, BMP #### [facility] [address] Erythrocytes [#/volume] in B lood by Automated countOrdered By: Karoline Londono on 10-03-2023 RBC (Bld) [#/Vol] 4.39 10*6/uL Normal 3.60-5.00 [facility] Comment on above: Performed By: #### E SR, CRP, CBC, BMP #### [facility] [address] Fibrin D-dimer [Presence] in Platelet poor plasma by Latex agglutinationOrdered By: Karoline Londono on 10-03-2023 Fibrin D-dimer LA Ql (PPP) < 200 ng/mL 0-243 [facility] Comment on above: The reference range for [...] coagulation studies. Please contact the laboratory at [phone] for redraw instructions. Glucose [Mass/volume] in Ser um or PlasmaOrdered By: Karoline Londono on 10-03-2023 Glucose [Mass/Vol] 102 mg/dL High 70-100 [facility] Comment on above: ADA recommended refe rence rangeRandom Glucose Reference Range is dependent on time and content of last meal. Glucose of more than 200 mg/dL in a nonstressed, ambulatory subject supports the diagnosis of Diabetes Mellitus. Result Comment: [facility] Glucose Reference Range is dependent on time and content of last meal. Glucose of more than 200 mg/dL in a nonstressed, ambulatory subject supports the diagnosis of Diabetes Mellitus. ADA recommended reference range Performed By: #### E SR, CRP, CBC, BMP #### [facility] [address] Hematocrit [Volume Fraction] of Blood by Automated countOrdered By: Karoline Londono on 10-03-2023 Hematocrit (Bld) [Volume fraction] 37.7 % Normal 34.0-46.4 [facility] Comment on above: Performed By: #### E SR, CRP, CBC, BMP #### [facility] [address] Hemoglobin [Mass/volume] in BloodOrdered By: Karoline Londono on 10-03-2023 Hemoglobin (Bld) [Mass/Vol] 12.8 g/dL Normal 11.8-15.4 [facility] Comment on above: Performed By: #### E SR, CRP, CBC, BMP #### [address] INR in Platelet poor plasma by Coagulation assayOrdered By: Karoline Londono on 10-03-2023 INR Coag (PPP) [Relative time] 0.9 {INR} Normal [facility] Comment on above: INR Therapeutic Rang e [...] valves: 3 - 4.5 Performed By: #### E SR, CRP, CBC, BMP #### [address] Leukocytes [#/volume] correc jessica for nucleated erythrocytes in Blood by Automated counOrdered By: Karoline Londono on 10-03-2023 WBC corrected for nucl RBC Auto (Bld) [#/Vol] 9.2 10*3/uL 3.8-11.6 [facility] Leukocytes [#/volume] in Blo od by Automated countOrdered By: Karoline Londono on 10-03-2023 WBC (Bld) [#/Vol] 9.2 10*3/uL Normal 3.8-11.6 [facility] Comment on above: Performed By: #### E SR, CRP, CBC, BMP #### [address] Lymphocytes [#/volume] in Bl ood by Automated countOrdered By: Karoline Londono on 10-03-2023 Lymphocytes (Bld) [#/Vol] 2.4 10*3/uL Normal 1.00-4.8 [facility] Comment on above: Performed By: #### E SR, CRP, CBC, BMP #### [address] Lymphocytes/100 leukocytes i n Blood by Automated countOrdered By: Karoline Londono on 10-03-2023 Lymphocytes/100 WBC (Bld) 26.5 % Normal . [facility] Comment on above: Performed By: #### E SR, CRP, CBC, BMP #### [place] [address] [place] MCH [Entitic mass] by Automa jessica countOrdered By: Karoline Londono on 10-03-2023 MCH (RBC) [Entitic mass] 29.2 pg Normal 24.7-34.3 [facility] Comment on above: Performed By: #### E SR, CRP, CBC, BMP #### [address] MCHC Auto (RBC) [Mass/Vol]Or dered By: Karoline Londono on 10-03-2023 MCHC (RBC) [Mass/Vol] 34.0 g/dL 32.0-35.0 [facility] MCV [Entitic volume] by Auto mated countOrdered By: Karoline Londono on 10-03-2023 MCV (RBC) [Entitic vol] 85.9 fL Normal 80-100 [facility] Comment on above: Performed By: #### E SR, CRP, CBC, BMP #### [facility] [address] Monocyte distribution width [Entitic volume] in Blood by AutomatedOrdered By: Karoline Londono on 10-03-2023 Monocyte distribution width Auto (Bld) [Entitic vol] 18.73 % 0.00-20.00 [facility] Neutrophils [#/volume] in Bl ood by Automated countOrdered By: Karoline Londono on 10-03-2023 Neutrophils (Bld) [#/Vol] 6.0 10*3/uL Normal 1.8-7.7 [facility] Comment on above: Performed By: #### E SR, CRP, CBC, BMP #### [facility] [address] [place] [address] No Panel InformationOrdered By: Karoline Londono on 10-03-2023 Estimated GFR (CKD-EPI) > 60.0 mL/Min [facility] Creatinine Clearance (Chem 114.63 [facility] Nucleated erythrocytes [Pres ence] in Blood by Automated countOrdered By: Karoline Londono on 10-03-2023 Nucleated RBC Auto Ql (Bld) 0.0 /100{WBC} 0-0.5 [facility] Partial Thromboplastin Timeo n 10-03-2023 aPTT Coag (Bld) [Time] 32.7 s Normal 25.1-36.5 [facility] Comment on above: Result Comment: A he matocrit value greater than 55% may lead to inaccurate results in coagulation testing. Patients having hematocrit values >55% require a special collection tube for coagulation studies. Please contact the laboratory at [phone] for redraw instructions. Performed By: #### E SR, CRP, CBC, BMP #### [facility] [address] [place] [address] Platelet mean volume [Entiti c volume] in Blood by Automated countOrdered By: Karoline Londono on 10-03-2023 Platelet mean volume (Bld) [Entitic vol] 8.6 fL Normal 6.3-10.7 [facility] Comment on above: Performed By: #### E SR, CRP, CBC, BMP #### [facility] [address] Platelets [#/volume] in Bloo d by Automated countOrdered By: Karoline Londono on 10-03-2023 Platelets (Bld) [#/Vol] 238 10*3/uL Normal 150-450 [facility] Comment on above: Performed By: #### E SR, CRP, CBC, BMP #### [facility] [address] Potassium [Moles/volume] in Serum or PlasmaOrdered By: Karoline Londono on 10-03-2023 Potassium [Moles/Vol] 3.8 mmol/L Normal 3.5-5.1 [facility] Comment on above: Performed By: #### E SR, CRP, CBC, BMP #### [facility] [address] Prothrombin time (PT)Ordered By: Karoline Londono on 10-03-2023 PT Coag (PPP) [Time] 10.1 s Normal 9.0-12.9 [facility] Comment on above: A hematocrit value g reater than 55% may lead to inaccurate results in coagulation testing. Patients having hematocrit values >55% require a special collection tube for coagulation studies. Please contact the laboratory at [phone] for redraw instructions. Result Comment: A he matocrit value greater than 55% may lead to inaccurate results in coagulation testing. Patients having hematocrit values >55% require a special collection tube for coagulation studies. Please contact the laboratory at [phone] for redraw instructions. Performed By: #### E SR, CRP, CBC, BMP #### [facility] [address] Serum or plasma anion gap de terminationOrdered By: Karoline Londono on 10-03-2023 Anion gap [Moles/Vol] 6.7 mmol/L Normal 6.0-15.0 [facility] Comment on above: Performed By: #### E SR, CRP, CBC, BMP #### [facility] [address] [place] [address] [place] Sodium [Moles/volume] in Ser um or PlasmaOrdered By: Karoline Londono on 10-03-2023 Sodium [Moles/Vol] 135 mmol/L Low 136-145 [facility] Comment on above: Performed By: #### E SR, CRP, CBC, BMP #### [facility] [address] Troponin I High Sensitivityo n 10-03-2023 Troponin I High Sensitivity 3.5 pg/mL Normal 0.0-15.0 [facility] Comment on above: Result Comment: PERF ORMED BY: [place] [id number] PATHOLOGIST CLINICAL BIOSTATISTICIAN TRI ASH M.D. Performed By: #### E SR, CRP, CBC, BMP #### [address] Troponin I.cardiac [Mass/vol ume] in Serum or Plasma by Detection limit <= 0.01 ng/Ordered By: Karoline Londono on 10-03-2023 Troponin I.cardiac DL <= 0.01 ng/mL [Mass/Vol] 3.5 pg/mL 0.0-15.0 [facility] Urea nitrogen [Mass/volume] in Serum or PlasmaOrdered By: Karoline Londono on 10-03-2023 Urea nitrogen [Mass/Vol] 17 mg/dL Normal 7-25 [facility] Comment on above: Performed By: #### E SR, CRP, CBC, BMP #### [facility] [address] [place] [address] Human papilloma virus 16+18+ 31+33+35+39+45+51+52+56+58+59+66+68 DNA [Presence] in [place] 08-12-2023 HPV 16+18+31+33+35+39+45+5 1+52+56+58+59+66+68 DNA Probe+sig amp Ql (Cvx) Negative Negative [facility] Comment on above: This nucleic acid am plification test detects fourteen high- risk HPV types (16,18,31,33,35,39,45,51,52,56,58,59,66,68)without differentiation.Performed at: =G - [facility] [address] [id number] Director: Arianne Sharma MD, Phone: [phone] at: WB - [facility] [address] [id number] Director: Arianne Sharma MD, Phone: [phone] No Panel Informationon 08-11 HPV High Risk Other Comment Note . [facility] Comment on above: TESTS RESULT FLAG UN ITS REF RANGE LAB DIAGNOSIS: 02 NEGATIVE FOR INTRAEPITHELIAL LESION OR MALIGNANCY. CELLULAR CHANGES ASSOCIATED WITH INFLAMMATION ARE PRESENT.Specimen adequacy: 02 Satisfactory for evaluation. Endocervical and/or squamous metaplastic cells (endocervical component) are present.Performed by: Bebeto Sanches, [employer] Consultant (ASCP). 02Note: Note 02 The Pap smear [...] <-Panic Low,>-Panic High,A-Abnormal,AA-Critical Abnormal -----Performed at:02 WB [facility] [address] [facility] [place] [address] Arianne Sharma MD, Reference Lab Test Patient Age Note . [facility] Comment on above: TESTS RESULT FLAG UN ITS REF RANGE LAB Clinician Provided Cytology Information Source.............Cervix;Endocervix No. of containers..01 ThinPrep VialAge Algo ACOG Dionna... 30-65 01 FLAG LEGEND: L-Low Normal,H-High Normal,LL-Alert Low,HH-Alert High <-Panic Low,>-Panic High,A-Abnormal,AA-Critical Abnormal -----Performed at:01 =G [facility] [address] [facility] [place] [address] Arianne Sharma MD, CNCOon 07-30-2023 CNCO Letter Text Normal [facility] CNPNon 07-30-2023 CNPN Telephone (VANESSA) ----- LISANDRA SOLIS ([id number]) 1990 F Date Time Provider Department 07/30/23 JUDE APONTE During your visit today, we recorded the following information about you: Lupe Cole 07/30/2023 10:46 AM Signed Pt called Asked for a work excuse for 07/22. She couldn't get a fax number for [facility]. Sent her [employer] registration info (she could get the letter that way) and also mailed to erics[place] address. Advised of 2 week delay Allergies [...] Encounter Status:Closed by LUPE COLE on 07/30/23 [facility] CNOVon 07-23-2023 CNOV Office Visit (VANESSA ) ----- LISANDRA SOLIS ([id number]) 1990 F Date Time Provider Department 07/23/23 [...] Status:Closed by JUDE APONTE on 07/23/23 Normal [facility] Thyroid Stim Hormone w/Rflxo n 07-14-2023 Thyroid Stim Hormone w/Rflx 0.80 u[iU]/mL Normal 0.45-5.33 [facility] Comment on above: Result Comment: PERF ORMED BY: [place] [id number] PATHOLOGIST CLINICAL BIOSTATISTICIAN TRI ASH M.D. Performed By: #### E SR, CRP, CBC, BMP #### [address] Thyrotropin [Units/volume] i n Serum or PlasmaOrdered By: Juanito Deleon on 07-14-2023 TSH Qn 0.80 m[IU]/L 0.45-5.33 [facility] CT facial bones w conon 04-30 CT facial bones w con [facility] Main [place] [address] [place] [address] CT Scan Report Signed Patient: Lisandra Solis MR#: [id number] 54 : 1990 Acct:[id number] Age/Sex: 33 / F ADM Date: 05/13/23 Loc: ER Room: Type: [facility] ER Attending Dr: Copies to: Nimisha Wilkes APRN Ordering Provider: Nimisha Wilkes APRN Date of Service: 05/13/23 CT/CT facial bones w con: pain ([id number]) CT/CT head/brain wo con: pain CLINICAL DATA: [...] Radha Crook M.D.05/14/2023 7:55 AM Dictation Location: [place] [address] Transcribed By: [facility] 05/14/23 0755 Dictated By: Radha Crook MD 05/14/23 0745 Signed By: 05/14/23 0755 Normal [facility] Automated basophil %Ordered By: Nimisha Wilkes on 05-13-2023 Basophils/100 WBC (Bld) 0.7 % Normal . [facility] Comment on above: Performed By: #### B MP, CBC #### [address] Automated basophil countOrde red By: Nimisha Wilkes on 05-13-2023 Basophils (Bld) [#/Vol] 0.1 10*3/uL Normal 0.0-0.2 [facility] Comment on above: Result Comment: PERF ORMED BY: [place] [id number] PATHOLOGIST CLINICAL BIOSTATISTICIAN TRI ASH M.D. Performed By: #### B MP, CBC #### [address] Automated blood monocyte cou ntOrdered By: Nimisha Wilkes on 05-13-2023 Monocytes (Bld) [#/Vol] 0.6 10*3/uL Normal 0.0-0.8 [facility] Comment on above: Performed By: #### B MP, CBC #### [address] Automated eosinophil %Ordere d By: Nimisha Wilkes on 05-13-2023 Eosinophils/100 WBC (Bld) 0.7 % Normal . [facility] Comment on above: Performed By: #### B MP, CBC #### [address] Automated eosinophil countOr dered By: Nimisha Wilkes on 05-13-2023 Eosinophils (Bld) [#/Vol] 0.1 10*3/uL Normal 0.0-0.45 [facility] Comment on above: Performed By: #### B MP, CBC #### [address] Automated erythrocytes count in urine sediment (number/area)Ordered By: Sukhdeep Nielson on 05-13-2023 RBC Auto (Urine sed) [#/Area] 3-4 [HPF] 0-4 [facility] Automated leukocytes count i n urine sediment (number/area)Ordered By: Sukhdeep Nielson on 05-13-2023 WBC Auto (Urine sed) [#/Area] 10-19 [HPF] 0-4 [facility] Automated monocyte %Ordered By: Nimisha Wilkes on 05-13-2023 Monocytes/100 WBC (Bld) 6.1 % Normal . [facility] Comment on above: Performed By: #### B MP, CBC #### [address] Automated neutrophil %Ordere d By: Nimisha Wilkes on 05-13-2023 Neutrophils/100 WBC (Bld) 63.6 % Normal . [facility] Comment on above: Performed By: #### B MP, CBC #### [address] Automated urine color determ inationOrdered By: Sukhdeep Nielson on 05-13-2023 Color (U) Yellow Normal Yellow [facility] Comment on above: Order Comment: Name Collection Type:: Clean-Voided Midstream Performed By: #### E SR, CRP, CBC, BMP #### [address] Basic Metabolic Panelon 04-30 Creatinine Clr Calc Pharmacy 122.58 Normal [facility] Comment on above: Result Comment: PERF ORMED BY: [place] [id number] PATHOLOGIST CLINICAL BIOSTATISTICIAN TRI ASH M.D. Performed By: #### B MP, CBC #### [address] GFR/1.73 sq M.predicted MDRD (S/P/Bld) [Vol rate/Area] mL/min/{1.73_m2} Normal [facility] Comment on above: Performed By: #### B MP, CBC #### [address] Bilirubin Test strip Ql (U)O rdered By: Sukhdeep Nielson on 05-13-2023 Bilirubin Ql (U) Negative Negative [facility] COVID CepheidOrdered By: Lisa Francopa on 05-13-2023 SARS-CoV-2 (COVID-19) Ab IA Ql Negative Negative [facility] Comment on above: This is a duplicate Cepheid Xpert Xpress CoV-2/Flu/RSV Plus RNA by RT-PCR result to be used for statistical tracking purpose only. SARS-CoV-2 (COVID-19) RNA VANNESA+probe Ql (Unsp spec) [facility] SARS-CoV-2 (COVID-19) RNA VANNESA+probe Ql (Unsp spec) [facility] COVID-19 / Flu A/B / RSV PCR [...] or Cepheid Disclaimer revoked sooner. PERFORMED BY: [place] [id number] PATHOLOGIST CLINICAL BIOSTATISTICIAN TRI ASH M.D. Normal [facility] Comment on above: Performed By: #### E SR, CRP, CBC, BMP #### [address] Calcium [Mass/volume] in Ser um or PlasmaOrdered By: Nimisha Wilkes on 05-13-2023 Calcium [Mass/Vol] 9.9 mg/dL Normal 8.6-10.3 [facility] Comment on above: Performed By: #### B MP, CBC #### [place] [id number] [facility] Carbon dioxide, total [Moles /volume] in Serum or PlasmaOrdered By: Nimisha Wilkes on 05-13-2023 CO2 [Moles/Vol] 26.1 mmol/L Normal 21.0-31.0 [facility] Comment on above: Performed By: #### B MP, CBC #### [place] [id number] [facility] Cepheid COVID PCR Negativeon 05-13-2023 SARS-CoV-2 (COVID-19) RNA VANNESA+probe Ql (Unsp spec) Negative Normal Negative [facility] Comment on above: Result Comment: This is a duplicate Cepheid Xpert Xpress CoV-2/Flu/RSV Plus RNA by RT-PCR result to be used for statistical tracking purpose only. PERFORMED BY: [place] [id number] PATHOLOGIST CLINICAL BIOSTATISTICIAN TRI ASH M.D. Performed By: #### E SR, CRP, CBC, BMP #### [place] [address] [place] Chloride [Moles/volume] in S damion or PlasmaOrdered By: Nimisha Wilkes on 05-13-2023 Chloride [Moles/Vol] 104 mmol/L Normal 98-107 [facility] Comment on above: Performed By: #### B MP, CBC #### [address] Complete Blood Count Auto Di ffon 05-13-2023 Mean Corpuscular HGB Conc 33.5 g/dL Normal 32.0-35.0 [facility] Comment on above: Performed By: #### B MP, CBC #### [address] Monocytes/100 WBC (Bld) 18.06 % Normal 0.00-20.00 [facility] Comment on above: Performed By: #### B MP, CBC #### [address] NRBC% 0.1 /100{WBC} Normal 0-0.5 [facility] Comment on above: Performed By: #### B MP, CBC #### [address] Creatinine [Mass/volume] in Serum or PlasmaOrdered By: Nimisha Wilkes on 05-13-2023 Creatinine [Mass/Vol] 0.71 mg/dL Normal 0.60-1.20 [facility] Comment on above: Performed By: #### B MP, CBC #### [place] [address] [place] Dipstick and Microscopicon 0 05-13-2023 Appearance (U) Clear Normal Clear [facility] Comment on above: Order Comment: Name Collection Type:: Clean-Voided Midstream Performed By: #### E SR, CRP, CBC, BMP #### [place] [address] [place] Bacteria,Urine None Seen Normal None Seen [facility] Comment on above: Order Comment: Name Collection Type:: Clean-Voided Midstream Performed By: #### E SR, CRP, CBC, BMP #### [facility] [address] [place] [address] [place] Bilirubin,Urine Negative Normal Negative [facility] Comment on above: Order Comment: Name Collection Type:: Clean-Voided Midstream Performed By: #### E SR, CRP, CBC, BMP #### [facility] [address] [place] [address] [place] Glucose Ql (U) Normal Normal Normal [facility] Comment on above: Order Comment: Name Collection Type:: Clean-Voided Midstream Performed By: #### E SR, CRP, CBC, BMP #### [facility] [address] [place] [address] [place] Hyaline Casts,Urine 0-8 Normal 0-8 [facility] Comment on above: Order Comment: Name Collection Type:: Clean-Voided Midstream Performed By: #### E SR, CRP, CBC, BMP #### [facility] [address] [place] [address] [place] Ketones Ql (U) Negative Normal Negative [facility] Comment on above: Order Comment: Name Collection Type:: Clean-Voided Midstream Performed By: #### E SR, CRP, CBC, BMP #### [facility] [address] [place] [address] [place] Leukocyte esterase Test strip Ql (U) 3+ High Negative [facility] Comment on above: Order Comment: Name Collection Type:: Clean-Voided Midstream Performed By: #### E SR, CRP, CBC, BMP #### [facility] [address] [place] [address] [place] Nitrite,Urine Negative Normal Negative [facility] Comment on above: Order Comment: Name Collection Type:: Clean-Voided Midstream Performed By: #### E SR, CRP, CBC, BMP #### [facility] [address] [place] [id number] [place] Occult Blood,Urine Trace High Negative [facility] Comment on above: Order Comment: Name Collection Type:: Clean-Voided Midstream Performed By: #### E SR, CRP, CBC, BMP #### [address] Protein,Urine Negative Normal Negative [facility] Comment on above: Order Comment: Name Collection Type:: Clean-Voided Midstream Performed By: #### E SR, CRP, CBC, BMP #### [address] RBC,Urine 3-4 Normal 0-4 [facility] Comment on above: Order Comment: Name Collection Type:: Clean-Voided Midstream Performed By: #### E SR, CRP, CBC, BMP #### [address] Specificy [place],Urine 1.020 Normal 1.001-1.03 0 [facility] Comment on above: Order Comment: Name Collection Type:: Clean-Voided Midstream Performed By: #### E SR, CRP, CBC, BMP #### [address] Squamous Epithelial Cell,Urine 3-4 High 0-2 [facility] Comment on above: Order Comment: Name Collection Type:: Clean-Voided Midstream Performed By: #### E SR, CRP, CBC, BMP #### [address] Urobilinogen,Urine Normal Normal Normal [facility] Comment on above: Order Comment: Name Collection Type:: Clean-Voided Midstream Performed By: #### E SR, CRP, CBC, BMP #### [address] WBC,Urine 10-19 High 0-4 [facility] Comment on above: Order Comment: Name Collection Type:: Clean-Voided Midstream Performed By: #### E SR, CRP, CBC, BMP #### [address] Erythrocyte distribution wid th [Ratio] by Automated countOrdered By: Nimisha Wilkes on 05-13-2023 Erythrocyte distribution width (RBC) [Ratio] 13.0 % Normal 11.9-15.3 [facility] Comment on above: Performed By: #### B MP, CBC #### [facility] [address] Erythrocytes [#/volume] in B lood by Automated countOrdered By: Nimisha Wilkes on 05-13-2023 RBC (Bld) [#/Vol] 4.67 10*6/uL Normal 3.60-5.00 [facility] Comment on above: Performed By: #### B MP, CBC #### [facility] [address] Glucose [Mass/volume] in Ser um or PlasmaOrdered By: Nimisha Wilkes on 05-13-2023 Glucose [Mass/Vol] 99 mg/dL Normal 70-100 [facility] Comment on above: ADA recommended refe rence rangeRandom Glucose Reference Range is dependent on time and content of last meal. Glucose of more than 200 mg/dL in a nonstressed, ambulatory subject supports the diagnosis of Diabetes Mellitus. Result Comment: [place] om Glucose Reference Range is dependent on time and content of last meal. Glucose of more than 200 mg/dL in a nonstressed, ambulatory subject supports the diagnosis of Diabetes Mellitus. ADA recommended reference range Performed By: #### B MP, CBC #### [facility] [address] HCG ( test) IA.rapi d Ql (U)Ordered By: Sukhdeep Nielson on 05-13-2023 HCG ( test) Ql (U) Negative [facility] HCG,Urineon 05-13-2023 Beta HCG ( test) Ql (U) Negative Normal [facility] Comment on above: Order Comment: Name Collection Type:: Clean-Voided Midstream Result Comment: PERF ORMED BY: [place] [id number] PATHOLOGIST CLINICAL BIOSTATISTICIAN TRI ASH M.D. Performed By: #### E SR, CRP, CBC, BMP #### [facility] [address] Hematocrit [Volume Fraction] of Blood by Automated countOrdered By: Nimisha Wilkes on 05-13-2023 Hematocrit (Bld) [Volume fraction] 40.0 % Normal 34.0-46.4 [facility] Comment on above: Performed By: #### B MP, CBC #### [address] Hemoglobin [Mass/volume] in BloodOrdered By: Nimisha Wilkes on 05-13-2023 Hemoglobin (Bld) [Mass/Vol] 13.4 g/dL Normal 11.8-15.4 [facility] Comment on above: Performed By: #### B MP, CBC #### [address] Ketones Auto test strip (U) [Mass/Vol]Ordered By: Sukhdeep Nielson on 05-13-2023 Ketones (U) [Mass/Vol] Negative Negative [facility] Laboratory - UrinalysisOrder ed By: Sukhdeep Nielson on 05-13-2023 Hyaline casts LM Ql (Urine sed) 0-8 [LPF] 0-8 [facility] Lactate [Moles/volume] in Se rum or PlasmaOrdered By: Nimisha Wilkes on 05-13-2023 Lactate [Moles/Vol] 0.6 mmol/L Normal 0.5-2.2 [facility] Comment on above: Result Comment: PERF ORMED BY: [place] [id number] PATHOLOGIST CLINICAL BIOSTATISTICIAN TRI ASH M.D. Performed By: #### L ACTIC #### [address] Leukocytes [#/volume] correc jessica for nucleated erythrocytes in Blood by Automated counOrdered By: Nimisha Wilkes on 05-13-2023 WBC corrected for nucl RBC Auto (Bld) [#/Vol] 9.0 10*3/uL 3.8-11.6 [facility] Leukocytes [#/volume] in Blo od by Automated countOrdered By: Nimisha Wilkes on 05-13-2023 WBC (Bld) [#/Vol] 9.0 10*3/uL Normal 3.8-11.6 [facility] Comment on above: Performed By: #### B MP, CBC #### [address] Lymphocytes [#/volume] in Bl ood by Automated countOrdered By: Nimisha Wilkes on 05-13-2023 Lymphocytes (Bld) [#/Vol] 2.6 10*3/uL Normal 1.00-4.8 [facility] Comment on above: Performed By: #### B MP, CBC #### [address] Lymphocytes/100 leukocytes i n Blood by Automated countOrdered By: Nimisha Wilkes on 05-13-2023 Lymphocytes/100 WBC (Bld) 28.9 % Normal . [facility] Comment on above: Performed By: #### B MP, CBC #### [address] MCH [Entitic mass] by Automa jessica countOrdered By: Nimisha Wilkes on 05-13-2023 MCH (RBC) [Entitic mass] 28.7 pg Normal 24.7-34.3 [facility] Comment on above: Performed By: #### B MP, CBC #### [address] MCHC Auto (RBC) [Mass/Vol]Or dered By: Nimisha Wilkes on 05-13-2023 MCHC (RBC) [Mass/Vol] 33.5 g/dL 32.0-35.0 [facility] MCV [Entitic volume] by Auto mated countOrdered By: Nimisha Wilkes on 05-13-2023 MCV (RBC) [Entitic vol] 85.7 fL Normal 80-100 [facility] Comment on above: Performed By: #### B MP, CBC #### [place] [address] [place] Monocyte distribution width [Entitic volume] in Blood by AutomatedOrdered By: Nimisha Wilkes on 05-13-2023 Monocyte distribution width Auto (Bld) [Entitic vol] 18.06 % 0.00-20.00 [facility] Neutrophils [#/volume] in Bl ood by Automated countOrdered By: Nimisha Wilkes on 05-13-2023 Neutrophils (Bld) [#/Vol] 5.7 10*3/uL Normal 1.8-7.7 [facility] Comment on above: Performed By: #### B MP, CBC #### [facility] [address] Nitrite Test strip Ql (U)Ord ered By: Sukhdeep Nielson on 05-13-2023 Nitrite Ql (U) Negative Negative [facility] No Panel InformationOrdered By: Nimisha Wilkes on 05-13-2023 Estimated GFR (CKD-EPI) > 60.0 mL/Min [facility] Creatinine Clearance (Chem 122.58 [facility] Nucleated erythrocytes [Pres ence] in Blood by Automated countOrdered By: Nimisha Wilkes on 05-13-2023 Nucleated RBC Auto Ql (Bld) 0.1 /100{WBC} 0-0.5 [facility] Platelet mean volume [Entiti c volume] in Blood by Automated countOrdered By: Nimisha Wilkes on 05-13-2023 Platelet mean volume (Bld) [Entitic vol] 8.5 fL Normal 6.3-10.7 [facility] Comment on above: Performed By: #### B MP, CBC #### [facility] [address] [place] [address] [place] Platelets [#/volume] in Bloo d by Automated countOrdered By: Nimisha Wilkes on 05-13-2023 Platelets (Bld) [#/Vol] 335 10*3/uL Normal 150-450 [facility] Comment on above: Performed By: #### B MP, CBC #### [facility] [address] [place] [address] [place] Potassium [Moles/volume] in Serum or PlasmaOrdered By: Nimisha Wilkes on 05-13-2023 Potassium [Moles/Vol] 3.5 mmol/L Normal 3.5-5.1 [facility] Comment on above: Performed By: #### B MP, CBC #### [facility] [address] [place] [id number] [facility] Protein Auto test strip (U) [Mass/Vol]Ordered By: Sukhdeep Nielson on 05-13-2023 Protein (U) [Mass/Vol] Negative Negative [facility] Serum or plasma anion gap de terminationOrdered By: Nimisha Wilkes on 05-13-2023 Anion gap [Moles/Vol] 12.4 mmol/L Normal 6.0-15.0 [facility] Comment on above: Performed By: #### B MP, CBC #### [address] Sodium [Moles/volume] in Ser um or PlasmaOrdered By: Nimisha Wilkes on 05-13-2023 Sodium [Moles/Vol] 139 mmol/L Normal 136-145 [facility] Comment on above: Performed By: #### B BORA, CBC #### [address] Specific gravity Auto test s trip (U) [Rel density]Ordered By: Sukhdeep Nielson on 05-13-2023 Specific gravity (U) [Rel density] 1.020 1.001-1.03 0 [facility] Squamous epithelial cells de tection in urine sediment by light microscopyOrdered By: Sukhdeep Nielson on 05-13-2023 Epithelial cells.squamous LM Ql (Urine sed) 3-4 [HPF] 0-2 [facility] Urea nitrogen [Mass/volume] in Serum or PlasmaOrdered By: Nimisha Wilkes on 05-13-2023 Urea nitrogen [Mass/Vol] 10 mg/dL Normal 7-25 [facility] Comment on above: Performed By: #### B MP, CBC #### [facility] [address] [place], [place] [id number] [facility] Urine Cultureon 05-13-2023 Bacteria identified Cx Nom (U) <9,000 colonies/ml mixed bacterial skin contaminants 2 Days PERFORMED BY: [place] [id number] PATHOLOGIST CLINICAL BIOSTATISTICIAN TRI ASH M.D. Normal [facility] Comment on above: Performed By: #### E SR, CRP, CBC, BMP #### [facility] [address] Urine bacteria detection by automated methodOrdered By: Sukhdeep iNelson on 05-13-2023 Bacteria Auto Ql (U) None seen None Seen [facility] Urine clarity by refractomet ry automatedOrdered By: Sukhdeep Nielson on 05-13-2023 Clarity Refractometry automated (U) Clear Clear [facility] Urine culture routineOrdered By: Sukhdeep Nielson on 05-13-2023 Bacteria identified Cx Nom (U) 2 Days [facility] Urine glucose measurement by automated test strip (mass/volume)Ordered By: Sukhdeep Nielson on 05-13-2023 Glucose Auto test strip (U) [Mass/Vol] Normal mg/dL Normal [facility] Urine hemoglobin detection b y automated test stripOrdered By: Sukhdeep Nielson on 05-13-2023 Hemoglobin Auto test strip Ql (U) Trace Negative [facility] Urine leukocyte esterase det ection by automated test stripOrdered By: Sukhdeep Nielson on 05-13-2023 Leukocyte esterase Auto test strip Ql (U) 3+ Negative [facility] Urine pH measurement by auto mated test stripOrdered By: Sukhdeep Nielson on 05-13-2023 pH (U) 5.5 [pH] Normal 5.0-9.0 [facility] Comment on above: Order Comment: Name Collection Type:: Clean-Voided Midstream Performed By: #### E SR, CRP, CBC, BMP #### [facility] [address] [place] [address] Urobilinogen Auto test strip (U) [Mass/Vol]Ordered By: Sukhdeep Nielson on 05-13-2023 Urobilinogen (U) [Mass/Vol] Normal mg/dL Normal [facility] CT facial bones w conon CT facial bones w con [facility] [place] [address] [place] [address] CT Scan Report Signed Patient: Lisandra Solis MR#: [id number] 54 : 1990 Acct:[id number] Age/Sex: 33 / F ADM Date: 05/07/23 Loc: ER Room: Type: [facility] ER Attending Dr: Copies to: Markie Alegria [...] Raghav Dupree M.D.05/08/2023 8:02 AM Dictation Location: [place] [address] Transcribed By: [facility] 05/08/23801 Dictated By: Raghav Dupree DO 05/08/23 0753 Signed By: 05/08/23 08 Normal [facility] Automated basophil %Ordered By: Markie Alegria on 05-07-2023 Basophils/100 WBC (Bld) 0.6 % Normal . [facility] Comment on above: Performed By: #### E SR, CRP, CBC, BMP #### [address] Automated basophil countOrde red By: Markie Alegria on 05-07-2023 Basophils (Bld) [#/Vol] 0.1 10*3/uL Normal 0.0-0.2 [facility] Comment on above: Performed By: #### E SR, CRP, CBC, BMP #### [address] Automated blood monocyte cou ntOrdered By: Markie Alegria on 05-07-2023 Monocytes (Bld) [#/Vol] 0.8 10*3/uL Normal 0.0-0.8 [facility] Comment on above: Performed By: #### E SR, CRP, CBC, BMP #### [address] Automated eosinophil %Ordere d By: Markie Alegria on 05-07-2023 Eosinophils/100 WBC (Bld) 0.5 % Normal . [facility] Comment on above: Performed By: #### E SR, CRP, CBC, BMP #### [address] Automated eosinophil countOr dered By: Markie Alegria on 05-07-2023 Eosinophils (Bld) [#/Vol] 0.1 10*3/uL Normal 0.0-0.45 [facility] Comment on above: Performed By: #### E SR, CRP, CBC, BMP #### [address] Automated monocyte %Ordered By: Markie Alegria on 05-07-2023 Monocytes/100 WBC (Bld) 7.8 % Normal . [facility] Comment on above: Performed By: #### E SR, CRP, CBC, BMP #### [address] Automated neutrophil %Ordere d By: Markie Alegria on 05-07-2023 Neutrophils/100 WBC (Bld) 68.6 % Normal . [facility] Comment on above: Performed By: #### E SR, CRP, CBC, BMP #### [address] Basic Metabolic Panelon Anion gap [Moles/Vol] Not performed Normal 6.0-15.0 [facility] Comment on above: Performed By: #### E SR, CRP, CBC, BMP #### [address] Creatinine Clr Calc Pharmacy 147.26 Normal [facility] Comment on above: Performed By: #### E SR, CRP, CBC, BMP #### [place] [address] [place] GFR/1.73 sq M.predicted MDRD (S/P/Bld) [Vol rate/Area] mL/min/{1.73_m2} Normal [facility] Comment on above: Performed By: #### E SR, CRP, CBC, BMP #### [address] Potassium Normal 3.5-5.1 [facility] Comment on above: Result Comment: Spec imen hemolyzed, redraw requested Performed By: #### E SR, CRP, CBC, BMP #### [address] C reactive protein [Mass/vol ume] in Serum or PlasmaOrdered By: Markie Alegria on 05-07-2023 CRP [Mass/Vol] 9.4 mg/dL 0.0-0.5 [facility] C-Reactive Proteinon 024 C-Reactive Protein 9.4 mg/dL High 0.0-0.5 [facility] Comment on above: Result Comment: PERF ORMED BY: [place] [id number] PATHOLOGIST CLINICAL BIOSTATISTICIAN TRI ASH M.D. Performed By: #### E SR, CRP, CBC, BMP #### [place] [address] [place] Calcium [Mass/volume] in Ser um or PlasmaOrdered By: Markie Alegria on 05-07-2023 Calcium [Mass/Vol] 9.5 mg/dL Normal 8.6-10.3 [facility] Comment on above: Performed By: #### E SR, CRP, CBC, BMP #### [address] Carbon dioxide, total [Moles /volume] in Serum or PlasmaOrdered By: Markie Alegria on 05-07-2023 CO2 [Moles/Vol] 25.4 mmol/L Normal 21.0-31.0 [facility] Comment on above: Performed By: #### E SR, CRP, CBC, BMP #### [address] Chloride [Moles/volume] in S damion or PlasmaOrdered By: Markie Alegria on 05-07-2023 Chloride [Moles/Vol] 102 mmol/L Normal 98-107 [facility] Comment on above: Performed By: #### E SR, CRP, CBC, BMP #### [address] Complete Blood Count Auto Di ffon 05-07-2023 Mean Corpuscular HGB Conc 32.6 g/dL Normal 32.0-35.0 [facility] Comment on above: Performed By: #### E SR, CRP, CBC, BMP #### [address] Monocytes/100 WBC (Bld) 22.66 % High 0.00-20.00 [facility] Comment on above: Result Comment: For adults in ED, MDW > 20.0 may be associated with a higher risk of sepsis during the first 12 hrs of hospital admission Performed By: #### E SR, CRP, CBC, BMP #### [facility] [address] [place] [address] [place] NRBC% 0.0 /100{WBC} Normal 0-0.5 [facility] Comment on above: Performed By: #### E SR, CRP, CBC, BMP #### [place] [address] [place] Creatinine [Mass/volume] in Serum or PlasmaOrdered By: Markie Alegria on 05-07-2023 Creatinine [Mass/Vol] 0.59 mg/dL Low 0.60-1.20 [facility] Comment on above: Performed By: #### E SR, CRP, CBC, BMP #### [address] Erythrocyte Sedimentation Ra blade 05-07-2023 ESR (Bld) [Velocity] 65 mm/h High 0-19 [facility] Comment on above: Result Comment: PERF ORMED BY: [place] [id number] PATHOLOGIST CLINICAL BIOSTATISTICIAN TRI ASH M.D. Performed By: #### E SR, CRP, CBC, BMP #### [address] Erythrocyte distribution wid th [Ratio] by Automated countOrdered By: Markie Alegria on 05-07-2023 Erythrocyte distribution width (RBC) [Ratio] 13.1 % Normal 11.9-15.3 [facility] Comment on above: Performed By: #### E SR, CRP, CBC, BMP #### [facility] [address] [place] [address] Erythrocyte sedimentation ra te by Photometric methodOrdered By: Markie Alegria on 05-07-2023 ESR Photometric method (Bld) [Velocity] 65 mm/hr 0-19 [facility] Erythrocytes [#/volume] in B lood by Automated countOrdered By: Markie Alegria on 05-07-2023 RBC (Bld) [#/Vol] 4.31 10*6/uL Normal 3.60-5.00 [facility] Comment on above: Performed By: #### E SR, CRP, CBC, BMP #### [address] Glucose [Mass/volume] in Ser um or PlasmaOrdered By: Markie Alegria on 05-07-2023 Glucose [Mass/Vol] 107 mg/dL High 70-100 [facility] Comment on above: ADA recommended refe rence rangeRandom Glucose Reference Range is dependent on time and content of last meal. Glucose of more than 200 mg/dL in a nonstressed, ambulatory subject supports the diagnosis of Diabetes Mellitus. Result Comment: [place] om Glucose Reference Range is dependent on time and content of last meal. Glucose of more than 200 mg/dL in a nonstressed, ambulatory subject supports the diagnosis of Diabetes Mellitus. ADA recommended reference range Performed By: #### E SR, CRP, CBC, BMP #### [address] Hematocrit [Volume Fraction] of Blood by Automated countOrdered By: Markie Alegria on 05-07-2023 Hematocrit (Bld) [Volume fraction] 37.2 % Normal 34.0-46.4 [facility] Comment on above: Performed By: #### E SR, CRP, CBC, BMP #### [address] Hemoglobin [Mass/volume] in BloodOrdered By: Markie Alegria on 05-07-2023 Hemoglobin (Bld) [Mass/Vol] 12.1 g/dL Normal 11.8-15.4 [facility] Comment on above: Performed By: #### E SR, CRP, CBC, BMP #### [address] Leukocytes [#/volume] correc jessica for nucleated erythrocytes in Blood by Automated counOrdered By: Markie Alegria on 05-07-2023 WBC corrected for nucl RBC Auto (Bld) [#/Vol] 9.7 10*3/uL 3.8-11.6 [facility] Leukocytes [#/volume] in Blo od by Automated countOrdered By: Markie Alegria on 05-07-2023 WBC (Bld) [#/Vol] 9.7 10*3/uL Normal 3.8-11.6 [facility] Comment on above: Performed By: #### E SR, CRP, CBC, BMP #### [address] Lymphocytes [#/volume] in Bl ood by Automated countOrdered By: Markie Alegria on 02-08-2024 Lymphocytes (Bld) [#/Vol] 2.2 10*3/uL Normal 1.00-4.8 [facility] Comment on above: Performed By: #### E SR, CRP, CBC, BMP #### [address] Lymphocytes/100 leukocytes i n Blood by Automated countOrdered By: Markie Alegria on 05-07-2023 Lymphocytes/100 WBC (Bld) 22.5 % Normal . [facility] Comment on above: Performed By: #### E SR, CRP, CBC, BMP #### [address] MCH [Entitic mass] by Automa jessica countOrdered By: Markie Alegria on 05-07-2023 MCH (RBC) [Entitic mass] 28.1 pg Normal 24.7-34.3 [facility] Comment on above: Performed By: #### E SR, CRP, CBC, BMP #### [facility] [address] [place] [address] MCHC Auto (RBC) [Mass/Vol]Or dered By: Markie Alegria on 05-07-2023 MCHC (RBC) [Mass/Vol] 32.6 g/dL 32.0-35.0 [facility] MCV [Entitic volume] by Auto mated countOrdered By: Markie Alegria on 05-07-2023 MCV (RBC) [Entitic vol] 86.3 fL Normal 80-100 [facility] Comment on above: Performed By: #### E SR, CRP, CBC, BMP #### [address] Monocyte distribution width [Entitic volume] in Blood by AutomatedOrdered By: Markie Alegria on 05-07-2023 Monocyte distribution width Auto (Bld) [Entitic vol] 22.66 % 0.00-20.00 [facility] Comment on above: For adults in ED, MD W > 20.0 may be associated with a higher risk of sepsis during the first 12 hrs of hospital admission Neutrophils [#/volume] in Bl ood by Automated countOrdered By: Markie Alegria on 02-08-2024 Neutrophils (Bld) [#/Vol] 6.7 10*3/uL Normal 1.8-7.7 [facility] Comment on above: Performed By: #### E SR, CRP, CBC, BMP #### [address] No Panel InformationOrdered By: Markie Alegrai on 05-07-2023 Estimated GFR (CKD-EPI) > 60.0 mL/Min [facility] Creatinine Clearance (Chem 147.26 [facility] Nucleated erythrocytes [Pres ence] in Blood by Automated countOrdered By: Markie Alegria on 05-07-2023 Nucleated RBC Auto Ql (Bld) 0.0 /100{WBC} 0-0.5 [facility] Platelet mean volume [Entiti c volume] in Blood by Automated countOrdered By: Markie Alegria on 05-07-2023 Platelet mean volume (Bld) [Entitic vol] 9.1 fL Normal 6.3-10.7 [facility] Comment on above: Performed By: #### E SR, CRP, CBC, BMP #### [address] Platelets [#/volume] in Bloo d by Automated countOrdered By: Markie Alegria on 05-07-2023 Platelets (Bld) [#/Vol] 249 10*3/uL Normal 150-450 [facility] Comment on above: Performed By: #### E SR, CRP, CBC, BMP #### [address] Potassium [Moles/volume] in Serum or PlasmaOrdered By: Markie Alegria on 05-07-2023 Potassium [Moles/Vol] 4.0 mmol/L Normal 3.5-5.1 [facility] Comment on above: Result Comment: PERF ORMED BY: [place] [id number] PATHOLOGIST CLINICAL BIOSTATISTICIAN TRI ASH M.D. Performed By: #### R GEMA Bejarano #### [address] Serum or plasma anion gap de terminationOrdered By: Markie Alegria on 05-07-2023 Anion gap [Moles/Vol] TNP [facility] Comment on above: Test not performed Sodium [Moles/volume] in Ser um or PlasmaOrdered By: Markie Alegria on 05-07-2023 Sodium [Moles/Vol] 133 mmol/L Low 136-145 [facility] Comment on above: Performed By: #### E SR, CRP, CBC, BMP #### [facility] [address] Urea nitrogen [Mass/volume] in Serum or PlasmaOrdered By: Markie Alegria on 05-07-2023 Urea nitrogen [Mass/Vol] 12 mg/dL Normal 7-25 [facility] Comment on above: Performed By: #### E SR, CRP, CBC, BMP #### [facility] [address] [place] [address] [place] Carlitos 04-16-2023 L Specimen: [id number] Received: 04/16/23 Status: SOUNessa Req Num: [id number] Spec Type: Surgical Subm Dr: Mark Mayorga DPM, [place] Tissues: A Tendon/Sheath (LT PERONEAL TENDON) Procedures: HE, Gross/Micro L3 Age/ Patient Sex Location Account Attending Physician WillLisandra L 33/F [place] [id number] Mark Mayorga DPM, MS SPEC NUM: [id number] RECD: 04/16/23 STATUS: WILFREDO ABURTO NUM: [id number] BLAIRE: 04/16/[address]: Mark Mayorga DPM, MS ENTERED: 04/16/[address] [facility] DR: Katherine,Dale SPEC TYPE: Surgical DEPT: ESTHER ASHLEY ORDERED: [...] in one cassette labeled A1. CPT Codes 10381 Specimen: [id number] Received: 04/16/23-1303 Status: WILFREDO Aburto Num: [id number] Spec Type: Surgical Subm Dr: Mark Mayorga DPM, MS Tissues: A Tendon/Sheath (LT PERONEAL TENDON) Procedures: Jim AMADO/Tong Cook Patient: Lisandra Solis [id number] (Continued) Signed (signature on file) Aurelio Hayden MD 01/21/24 2234 Normal [facility] Alanine aminotransferase [En zymatic activity/volume] in Serum or PlasmaOrdered By: Karoline Londono on 03-27-2023 ALT [Catalytic activity/Vol] 22 U/L Normal 7-52 [facility] Comment on above: Performed By: #### C BC, CMP #### [address] Albumin [Mass/volume] in Ser um or Plasma by Bromocresol green (BCG) dye binding methoOrdered By: Karoline Londono on 03-27-2023 Albumin BCG dye [Mass/Vol] 4.4 g/dL 3.5-5.7 [facility] Alkaline phosphatase [Enzyma tic activity/volume] in Serum or PlasmaOrdered By: Karoline Londono on 03-27-2023 ALP [Catalytic activity/Vol] 79 U/L Normal 34-104 [facility] Comment on above: Performed By: #### C BC, CMP #### [address] Aspartate aminotransferase [ Enzymatic activity/volume] in Serum or PlasmaOrdered By: Karoline Londono on 03-27-2023 AST [Catalytic activity/Vol] 17 U/L Normal 13-39 [facility] Comment on above: Performed By: #### C BC, CMP #### [address] Automated basophil %Ordered By: Karoline Londono on 03-27-2023 Basophils/100 WBC (Bld) 0.2 % Normal . [facility] Comment on above: Performed By: #### C BC, CMP #### [address] Automated basophil countOrde red By: Karoline Londono on 03-27-2023 Basophils (Bld) [#/Vol] 0.0 10*3/uL Normal 0.0-0.2 [facility] Comment on above: Result Comment: PERF ORMED BY: [place] [id number] PATHOLOGIST CLINICAL BIOSTATISTICIAN TRI ASH M.D. Performed By: #### C BC, CMP #### [address] Automated blood monocyte cou ntOrdered By: Karoline Londono on 03-27-2023 Monocytes (Bld) [#/Vol] 0.6 10*3/uL Normal 0.0-0.8 [facility] Comment on above: Performed By: #### C BC, CMP #### [address] Automated eosinophil %Ordere d By: Karoline Londono on 03-27-2023 Eosinophils/100 WBC (Bld) 0.4 % Normal . [facility] Comment on above: Performed By: #### C BC, CMP #### [address] Automated eosinophil countOr dered By: Karoline Londono on 03-27-2023 Eosinophils (Bld) [#/Vol] 0.1 10*3/uL Normal 0.0-0.45 [facility] Comment on above: Performed By: #### C BC, CMP #### [address] Automated monocyte %Ordered By: Karoline Londono on 03-27-2023 Monocytes/100 WBC (Bld) 3.6 % Normal . [facility] Comment on above: Performed By: #### C BC, CMP #### [address] Automated neutrophil %Ordere d By: Karoline Londono on 03-27-2023 Neutrophils/100 WBC (Bld) 74.7 % Normal . [facility] Comment on above: Performed By: #### C BC, CMP #### [address] Bilirubin.total [Mass/volume ] in Serum or PlasmaOrdered By: Karoline Londono on 03-27-2023 Bilirubin [Mass/Vol] 0.3 mg/dL Normal 0.3-1.0 [facility] Comment on above: Performed By: #### C BC, CMP #### [address] Calcium [Mass/volume] in Ser um or PlasmaOrdered By: Karoline Londono on 03-27-2023 Calcium [Mass/Vol] 9.0 mg/dL Normal 8.6-10.3 [facility] Comment on above: Performed By: #### C BC, CMP #### [address] Carbon dioxide, total [Moles /volume] in Serum or PlasmaOrdered By: Karoline Londono on 03-27-2023 CO2 [Moles/Vol] 24.1 mmol/L Normal 21.0-31.0 [facility] Comment on above: Performed By: #### C BC, CMP #### [address] Chloride [Moles/volume] in S damion or PlasmaOrdered By: Karoline Londono on 03-27-2023 Chloride [Moles/Vol] 104 mmol/L Normal 98-107 [facility] Comment on above: Performed By: #### C BC, CMP #### [address] Complete Blood Count Auto Di ffon 03-27-2023 Mean Corpuscular HGB Conc 33.1 g/dL Normal 32.0-35.0 [facility] Comment on above: Performed By: #### C BC, CMP #### [address] Monocytes/100 WBC (Bld) 22.21 % High 0.00-20.00 [facility] Comment on above: Result Comment: For adults in ED, MDW > 20.0 may be associated with a higher risk of sepsis during the first 12 hrs of hospital admission Performed By: #### C BC, CMP #### [address] NRBC% 0.1 /100{WBC} Normal 0-0.5 [facility] Comment on above: Performed By: #### C BC, CMP #### [address] Comprehensive Metabolic Pane carlitos 03-27-2023 Albumin [Mass/Vol] 4.4 g/dL Normal 3.5-5.7 [facility] Comment on above: Performed By: #### C BC, CMP #### [facility] [address] [place] [address] [place] Creatinine Clr Calc Pharmacy 119.59 Normal [facility] Comment on above: Result Comment: PERF ORMED BY: [place] [id number] PATHOLOGIST CLINICAL BIOSTATISTICIAN TRI ASH M.D. Performed By: #### C BC, CMP #### [place] [address] [place] GFR/1.73 sq M.predicted MDRD (S/P/Bld) [Vol rate/Area] mL/min/{1.73_m2} Normal [facility] Comment on above: Performed By: #### C BC, CMP #### [address] Creatinine [Mass/volume] in Serum or PlasmaOrdered By: Karoline Londono on 03-27-2023 Creatinine [Mass/Vol] 0.71 mg/dL Normal 0.60-1.20 [facility] Comment on above: Performed By: #### C BC, CMP #### [address] ECG 12 lead ECGon 03-27-2023 ECG 12 lead ECG [facility] Main [place] [address] [place] [address] Electrocardiograph Report Signed Patient: Lisandra Solis MR#: [id number] 54 : 1990 Acct:[id number] Age/Sex: 33 / F ADM Date: 03/27/23 Loc: ER Room: Type: [facility] ER Attending Dr: Ordering Provider: Karoline Londono [...] ECGs available Confirmed by KAROLINE LONDONO MD ([id number]) on 03/28/2023 5:51:37 AM Referred By: Electronically Signed By:KAROLINE LONDONO MD Transcribed By: MUS Signed [place] [address] Normal [facility] Erythrocyte distribution wid th [Ratio] by Automated countOrdered By: Karoline Londono on 03-27-2023 Erythrocyte distribution width (RBC) [Ratio] 13.1 % Normal 11.9-15.3 [facility] Comment on above: Performed By: #### C BC, CMP #### [address] Erythrocytes [#/volume] in B lood by Automated countOrdered By: Karoline Londono on 03-27-2023 RBC (Bld) [#/Vol] 4.37 10*6/uL Normal 3.60-5.00 [facility] Comment on above: Performed By: #### C BC, CMP #### [address] Glucose [Mass/volume] in Ser um or PlasmaOrdered By: Karoline Londono on 03-27-2023 Glucose [Mass/Vol] 214 mg/dL High 70-100 [facility] Comment on above: ADA recommended refe rence rangeRandom Glucose Reference Range is dependent on time and content of last meal. Glucose of more than 200 mg/dL in a nonstressed, ambulatory subject supports the diagnosis of Diabetes Mellitus. Result Comment: [place] om Glucose Reference Range is dependent on time and content of last meal. Glucose of more than 200 mg/dL in a nonstressed, ambulatory subject supports the diagnosis of Diabetes Mellitus. ADA recommended reference range Performed By: #### C BC, CMP #### [address] Hematocrit [Volume Fraction] of Blood by Automated countOrdered By: Karoline Londono on 03-27-2023 Hematocrit (Bld) [Volume fraction] 37.4 % Normal 34.0-46.4 [facility] Comment on above: Performed By: #### C BC, CMP #### [place] [address] Hemoglobin [Mass/volume] in BloodOrdered By: Karoline Londono on 03-27-2023 Hemoglobin (Bld) [Mass/Vol] 12.4 g/dL Normal 11.8-15.4 [facility] Comment on above: Performed By: #### C BC, CMP #### [address] Leukocytes [#/volume] correc jessica for nucleated erythrocytes in Blood by Automated counOrdered By: Karoline Londono on 03-27-2023 WBC corrected for nucl RBC Auto (Bld) [#/Vol] 17.2 10*3/uL 3.8-11.6 [facility] Leukocytes [#/volume] in Blo od by Automated countOrdered By: Karoline Londono on 03-27-2023 WBC (Bld) [#/Vol] 17.2 10*3/uL High 3.8-11.6 [facility] Comment on above: Performed By: #### C BC, CMP #### [place] [address] [place] Lymphocytes [#/volume] in Bl ood by Automated countOrdered By: Karoline Londono on 03-27-2023 Lymphocytes (Bld) [#/Vol] 3.6 10*3/uL Normal 1.00-4.8 [facility] Comment on above: Performed By: #### C BC, CMP #### [place] [address] [place] Lymphocytes/100 leukocytes i n Blood by Automated countOrdered By: Karoline Londono on 03-27-2023 Lymphocytes/100 WBC (Bld) 21.1 % Normal . [facility] Comment on above: Performed By: #### C BC, CMP #### [place] [address] [place] MCH [Entitic mass] by Automa jessica countOrdered By: Karoline Londono on 03-27-2023 MCH (RBC) [Entitic mass] 28.3 pg Normal 24.7-34.3 [facility] Comment on above: Performed By: #### C BC, CMP #### [address] MCHC Auto (RBC) [Mass/Vol]Or dered By: Karoline Londono on 03-27-2023 MCHC (RBC) [Mass/Vol] 33.1 g/dL 32.0-35.0 [facility] MCV [Entitic volume] by Auto mated countOrdered By: Karoline Londono on 03-27-2023 MCV (RBC) [Entitic vol] 85.6 fL Normal 80-100 [facility] Comment on above: Performed By: #### C BC, CMP #### [address] Monocyte distribution width [Entitic volume] in Blood by AutomatedOrdered By: Karoline Londono on 03-27-2023 Monocyte distribution width Auto (Bld) [Entitic vol] 22.21 % 0.00-20.00 [facility] Comment on above: For adults in ED, MD W > 20.0 may be associated with a higher risk of sepsis during the first 12 hrs of hospital admission Neutrophils [#/volume] in Bl ood by Automated countOrdered By: Karoline Londono on 03-27-2023 Neutrophils (Bld) [#/Vol] 12.8 10*3/uL High 1.8-7.7 [facility] Comment on above: Performed By: #### C BC, CMP #### [address] No Panel InformationOrdered By: Karoline Londono on 03-27-2023 Estimated GFR (CKD-EPI) > 60.0 mL/Min [facility] Creatinine Clearance (Chem 119.59 [facility] Nucleated erythrocytes [Pres ence] in Blood by Automated countOrdered By: Karoline Londono on 03-27-2023 Nucleated RBC Auto Ql (Bld) 0.1 /100{WBC} 0-0.5 [facility] Platelet mean volume [Entiti c volume] in Blood by Automated countOrdered By: Karoline Londono on 03-27-2023 Platelet mean volume (Bld) [Entitic vol] 8.3 fL Normal 6.3-10.7 [facility] Comment on above: Performed By: #### C BC, CMP #### [address] Platelets [#/volume] in Bloo d by Automated countOrdered By: Karoline Londono on 03-27-2023 Platelets (Bld) [#/Vol] 336 10*3/uL Normal 150-450 [facility] Comment on above: Performed By: #### C BC, CMP #### [address] Potassium [Moles/volume] in Serum or PlasmaOrdered By: Karoline Londono on 03-27-2023 Potassium [Moles/Vol] 3.3 mmol/L Low 3.5-5.1 [facility] Comment on above: Performed By: #### C BC, CMP #### [address] Protein [Mass/volume] in Ser um or PlasmaOrdered By: Karoline Londono on 03-27-2023 Protein [Mass/Vol] 7.6 g/dL Normal 6.4-8.9 [facility] Comment on above: Performed By: #### C BC, CMP #### [address] Serum globulin measurement b y calculation (mass/volume)Ordered By: Karoline Londono on 03-27-2023 Globulin (S) [Mass/Vol] 3.2 g/dL [facility] Comment on above: Performed By: #### C BC, CMP #### [address] Serum or plasma albumin/glob ulin mass ratioOrdered By: Karoline Londono on 03-27-2023 Albumin/Globulin [Mass ratio] 1.4 {ratio} [facility] Comment on above: Performed By: #### C BC, CMP #### [address] Serum or plasma anion gap de terminationOrdered By: Karoline Londono on 03-27-2023 Anion gap [Moles/Vol] 12.2 mmol/L Normal 6.0-15.0 [facility] Comment on above: Performed By: #### C BC, CMP #### [facility] [address] [place] [address] [place] Sodium [Moles/volume] in Ser um or PlasmaOrdered By: Karoline Londono on 03-27-2023 Sodium [Moles/Vol] 137 mmol/L Normal 136-145 [facility] Comment on above: Performed By: #### C BC, CMP #### [facility] [address] [place] [address] [place] Urea nitrogen [Mass/volume] in Serum or PlasmaOrdered By: Karoline Londono on 03-27-2023 Urea nitrogen [Mass/Vol] 15 mg/dL Normal 7-25 [facility] Comment on above: Performed By: #### C BC, CMP #### [facility] [address] Alanine aminotransferase [En zymatic activity/volume] in Serum or PlasmaOrdered By: Uriah Skinner on 02-17-2023 ALT [Catalytic activity/Vol] 26 U/L 7-52 [facility] Vitamin B12 ser/plasOrdered By: Uriah Skinner on 02-17-2023 Cobalamin (Vitamin B12) [Mass/Vol] 364 pg/mL 180-914 [facility] COVID + FLU Quick Testingon 12-11-2022 SARS-CoV-2 (COVID-19) RNA VANNESA+probe Ql (Unsp spec) Negative [facility] [employer] Other COVID + FLU Quick Testing Negative [facility] [employer] Other Quick Strepon 12-11-2022 S. pyogenes Org specific cx Ql (Throat) Positive [facility] [employer] Other Quick Strep [facility] [employer] Other HCG ( test) IA.rapi d Ql (U)Ordered By: Johann Moe on 07-28-2022 HCG ( test) Ql (U) Negative [facility] CBC AUTO DIFFon 06-06-2022 BASO # 0.0 103/ul Normal 0.0-0.1 [facility] Comment on above: Performed By: #### C BC #### [facility] [address] [address] [address] Jorge Luis Ferris Basophils/100 WBC (Bld) 0.2 % Normal 0.2-2.0 [facility] Comment on above: Performed By: #### C BC #### [facility] [address] [place] [address] Dr. Jorge Luis Ferris EO # 0.0 103/ul Normal 0.0-0.7 [facility] Comment on above: Performed By: #### C BC #### [facility] [address] [place] [address] Dr. Jorge Luis Ferris Eosinophils/100 WBC (Bld) 0.5 % Critically low 0.9-7.0 [facility] Comment on above: Performed By: #### C BC #### [facility] [address] [place] [address] Dr. Jorge Luis Ferris Erythrocyte distribution width (RBC) [Ratio] 12.4 % Normal 11.0-15.0 [facility] Comment on above: Performed By: #### C BC #### [facility] [address] [place] [address] Dr. Jorge Luis Ferris Hematocrit (Bld) [Volume fraction] 37.4 % Normal 36.0-48.0 [facility] Comment on above: Performed By: #### C BC #### [facility] [address] [place] [address] Dr. Jorge Luis Ferris Hemoglobin (Bld) [Mass/Vol] 12.4 g/dL Normal 12.0-16.0 [facility] Comment on above: Performed By: #### C BC #### [facility] [address] [place] [address] Dr. Jorge Luis Ferris IG # 0.03 10e3/ul Normal 0.00-0.03 [facility] Comment on above: Performed By: #### C BC #### [facility] [address] [place] [address] Dr. Jorge Luis Ferris IG % 0.4 % Normal 0.0-0.5 [facility] Comment on above: Performed By: #### C BC #### [facility] [address] [place] [address] Dr. Jorge Luis Ferris LYMPH # 2.5 103/ul Normal 1.2-3.8 [facility] Comment on above: Performed By: #### C BC #### [facility] [address] [place] [address] Dr. Jorge Luis Ferris Lymphocytes/100 WBC (Bld) 30.4 % Normal 20.5-60.0 [facility] Comment on above: Performed By: #### C BC #### [facility] [address] [place] [address] Dr. Jorge Luis Ferris MANUAL DIFF REQ NO Normal [facility] Comment on above: Performed By: #### C BC #### [facility] [address] [place] [address] Dr. Jorge Luis Ferris MCH (RBC) [Entitic mass] 28.6 pg Normal 26.7-34.0 [facility] Comment on above: Performed By: #### C BC #### [facility] [address] [place] [address] Dr. Jorge Luis Ferris MCHC (RBC) [Mass/Vol] 33.2 g/dL Normal 29.9-35.2 [facility] Comment on above: Performed By: #### C BC #### [facility] [address] [place] [address] Dr. Jorge Luis Ferris MCV (RBC) [Entitic vol] 86.2 fL Normal 81.0-99.0 [facility] Comment on above: Performed By: #### C BC #### [facility] [address] [place] [address] Dr. Jorge Luis Ferris MONO # 0.5 103/ul Normal 0.3-0.8 [facility] Comment on above: Performed By: #### C BC #### [facility] [address] [place] [address] Dr. Jorge Luis Ferris Monocytes/100 WBC (Bld) 5.4 % Normal 1.7-12.0 [facility] Comment on above: Performed By: #### C BC #### [facility] [address] [place] [address] Dr. Jorge Luis Ferris NEUT # 5.2 103/ul Normal 1.4-6.5 [facility] Comment on above: Performed By: #### C BC #### [facility] [address] [place] [address] Dr. Jorge Luis Ferris Neutrophils/100 WBC (Bld) 63.1 % Normal 43.0-75.0 [facility] Comment on above: Performed By: #### C BC #### [facility] [address] [place] [address] Dr. Jorge Luis Ferris Platelet mean volume (Bld) [Entitic vol] 10.3 fL Normal 9.5-13.5 [facility] Comment on above: Performed By: #### C BC #### [facility] [address] [place] [address] Dr. Jorge Luis Ferris PLT 236 103/ul Normal 150-450 [facility] Comment on above: Performed By: #### C BC #### [facility] [address] [place] [address] Dr. Jorge Luis Ferris RBC 4.34 106/ul Normal 4.20-5.40 [facility] Comment on above: Performed By: #### C BC #### [facility] [address] [place] [address] Dr. Jorge Luis Ferris WBC 8.3 103/ul Normal 4.0-11.0 [facility] Comment on above: Performed By: #### C BC #### [facility] [address] [place] [address] [address] CSPINE WO [...] NATALIE HERNANDEZ Date: 2022-06-06 20:03 Normal [facility] CT HEAD WO CONon 06-06-2022 CT HEAD [...] BEKA UNLU Date: 2022-06-06 20:06 Normal [facility] CULTURE URINEon 06-06-2022 CULTURE URINE Culture Observations : LIGHT GROWTH OF MIXED GENITAL RISA. NO POTENTIAL PATHOGENS SEEN. Normal [facility] Comment on above: Performed By: #### U RCX #### [facility] [address] [place] [address] Dr. Jorge Luis Ferris ER URINE PROFILEon 3 Bilirubin Ql (U) Negative Normal NEGATIVE [facility] Comment on above: Performed By: #### [id number] #### [facility] [address] [place] [address] Dr. Jorge Luis Ferris Clarity (U) CLEAR Normal CLEAR [facility] Comment on above: Performed By: #### [id number] #### [facility] [address] [place] [address] Dr. Jorge Luis Ferris Color (U) YELLOW Normal YELLOW [facility] Comment on above: Performed By: #### [id number] #### [facility] [address] [address] [address] Jorge Luis GARNETT A micrscopic examina tion will be performed if indicated. Normal [facility] Comment on above: Performed By: #### [id number] #### [facility] [address] [place] [address] Dr. Jorge Luis Ferris Glucose Ql (U) Negative Normal NEGATIVE [facility] Comment on above: Performed By: #### [id number] #### [facility] [address] [address] [address] Jorge Luis Ferris Hemoglobin Ql (U) Negative Normal NEGATIVE [facility] Comment on above: Performed By: #### [id number] #### [facility] [address] [place] [address] Dr. Jorge Luis Ferris Ketones Ql (U) Negative Normal NEGATIVE [facility] Comment on above: Performed By: #### [id number] #### [facility] [address] [place] [address] Dr. Jorge Luis Ferris LEUKOCYTES MODERATE Abnormal NEGATIVE [facility] Comment on above: Performed By: #### [id number] #### [facility] [address] [address] [address] Jorge Luis Ferris Nitrite Ql (U) Negative Normal NEGATIVE [facility] Comment on above: Performed By: #### [id number] #### [facility] [address] [place] [address] Dr. Jorge Luis Ferris pH (U) 7.0 [pH] Normal 5-9 [facility] Comment on above: Performed By: #### [id number] #### [facility] [address] [place] [address] Dr. Jorge Luis Ferris SPEC GRAVITY 1.020 Normal 1.005-<=1. 025 [facility] Comment on above: Performed By: #### 4 [id number] #### [facility] [address] [place] [address] Dr. Jorge Luis Ferris UA PROTEIN TRACE Normal NEGATIVE/ TRACE [facility] Comment on above: Performed By: #### [id number] #### [facility] [address] [place] [address] Dr. Jorge Luis Ferris UR MICRO IND INDICATED Normal [facility] Comment on above: Performed By: #### [id number] #### [facility] [address] [place] [address] Dr. Jorge Luis Ferris Urobilinogen Qn (U) 0.2 {Álvaro'U}/dL Normal 0.2 - 1. 0 [facility] Comment on above: Performed By: #### 4 [id number] #### [facility] [address] [place] [address] Dr. Jorge Luis Ferris PREG HCG QUALon 06-06-2022 , QUAL Negative Normal NEGATIVE [facility] Comment on above: Performed By: #### 4 [id number] #### [facility] [address] [place] [address] Dr. Jorge Luis Ferris PROF CHEM 8 (BAS METB)on Anion gap [Moles/Vol] 9.2 mmol/L Normal [facility] Comment on above: Performed By: #### B MP, TSH #### [facility] [address] [place] [address] Dr. Jorge Luis Ferris Calcium [Mass/Vol] 8.9 mg/dL Normal 8.5-10.1 [facility] Comment on above: Performed By: #### B MP, TSH #### [facility] [address] [place] [address] Dr. Jorge Luis Ferris Chloride [Moles/Vol] 103 mmol/L Normal 98-107 [facility] Comment on above: Performed By: #### B MP, TSH #### [facility] [address] [place] [address] Dr. Jorge Luis Ferris CO2 [Moles/Vol] 26.4 mmol/L Normal 21.0-32.0 [facility] Comment on above: Performed By: #### B MP, TSH #### [facility] [address] [place] [address] Dr. Jorge Luis Ferris Creatinine [Mass/Vol] 0.64 mg/dL Normal 0.55-1.02 [facility] Comment on above: Performed By: #### B MP, TSH #### [facility] [address] [place] [address] Dr. Jorge Luis Ferris EGFR-AF LUXEMBOURGER >60 Normal >=60 [facility] Comment on above: Performed By: #### B MP, TSH #### [facility] [address] [address] [address] Jorge Luis Ferris EGFR-NON AF LUXEMBOURGER >60 Normal >=60 [facility] Comment on above: Performed By: #### B MP, TSH #### [facility] [address] [address] [address] Jorge Luis Ferris Glucose [Mass/Vol] 97 mg/dL Normal 74-106 [facility] Comment on above: Performed By: #### B MP, TSH #### [facility] [address] [place] [address] Dr. Jorge Luis Ferris Potassium [Moles/Vol] 3.6 mmol/L Normal 3.5-5.1 [facility] Comment on above: Performed By: #### B MP, TSH #### [facility] [address] [place] [address] Dr. Jorge Luis Ferris Sodium [Moles/Vol] 135 mmol/L Critically low 136-145 [facility] Comment on above: Performed By: #### B MP, TSH #### [facility] [address] [address] [address] Jorge Luis Ferris Urea nitrogen [Mass/Vol] 11.0 mg/dL Normal 7.0-18.0 [facility] Comment on above: Performed By: #### B MP, TSH #### [facility] [address] [address] [address] Jorge Luis Ferris Urea nitrogen/Creatinine [Mass ratio] 17.2 mg/mg Normal [facility] Comment on above: Performed By: #### B MP, TSH #### [facility] [address] [place] [address] Dr. Jorge Luis Ferris TSHon 06-06-2022 TSH 1.148 uIU/mL Normal 0.358-3.74 0 [facility] Comment on above: Performed By: #### B MP, TSH #### [facility] [address] [place] [address] Dr. Jorge Luis Ferris URINE MICROSCOPIC ONLYon BACTERIA LARGE Abnormal NONE SEEN [facility] Comment on above: Performed By: #### [id number] #### [facility] [address] [place] [address] Dr. Jorge Luis Ferris Bacteria identified Cx Nom (U) INDICATED Normal [facility] Comment on above: Performed By: #### [id number] #### [facility] [address] [place] [address] Dr. Jorge Luis Ferris CAST NONE SEEN Normal NONE SEEN [facility] Comment on above: Performed By: #### 4 [id number] #### [facility] [address] [place] [address] Dr. Jorge Luis Ferris Crystals LM Nom (Urine sed) NONE SEEN Normal NONE SEEN [facility] Comment on above: Performed By: #### [id number] #### [facility] [address] [place] [address] Dr. Jorge Luis Ferris Epithelial cells LM Ql (Urine sed) MANY Abnormal NONE SEEN /RARE [facility] Comment on above: Performed By: #### 4 [id number] #### [facility] [address] [place] [address] Dr. Jorge Luis Ferris MUCOUS LARGE Abnormal NONE SEEN [facility] Comment on above: Performed By: #### 4 [id number] #### [facility] [address] [place] [address] Dr. Jorge Luis Ferris RBC 0-2 Normal 0-2 [facility] Comment on above: Performed By: #### 4 [id number] #### [facility] [address] [place] [address] Dr. Jorge Luis Ferris WBC 5-10 Abnormal NONE SEEN [facility] Comment on above: Performed By: #### 4 [id number] #### [facility] [address] [place] [address] Dr. Jorge Luis Ferris TSHon 05-08-2022 TSH 0.687 uIU/mL Normal 0.358-3.74 0 [facility] Comment on above: Performed By: #### T #### [facility] [address] [place] [address] ABDOMEN WO/W [...] by: LEILANI ALANIS Date: 2022-02-05 07:28 Normal [facility] Amylaseon 09-27-2021 Amylase 40 U/L Normal 28-100 U/L [facility] Other Hepatic Panelon 09-27-2021 Albumin [Mass/Vol] 3.412101 g/dL Normal 3.2-5.5 g/dL [facility] Other Albumin/Globulin [Mass ratio] 1.2 {ratio} [facility] Other ALP [Catalytic activity/Vol] 79 U/L Normal 32-92 U/L [facility] Other ALT [Catalytic activity/Vol] 73 U/L High 10-60 U/L [facility] Other AST [Catalytic activity/Vol] 40 U/L Normal 10-42 U/L [facility] Other Bilirubin [Mass/Vol] 0.2576337 mg/dL Normal 0.3- 1.2 mg/dL [facility] Other Bilirubin.indirect [Mass/Vol] mg/dL Normal 0.0-0.4 [facility] Other Protein [Mass/Vol] 6.401742 g/dL Normal 6.1-7.9 g/dL [facility] Other Hepatic Panel TNP [facility] Other Hepatic Panel 3.0 g/dL [facility] Other Lipaseon 09-27-2021 Lipase [Catalytic activity/Vol] 34.58610 U/L Normal 22-51 U/L [facility] Other Lipid Panelon 09-27-2021 Cholesterol [Mass/Vol] 239 mg/dL High 140-2 00 mg/dL [facility] Other Cholesterol in HDL [Mass/Vol] 54 mg/dL Normal 35-85 mg/dL [facility] Other Cholesterol in LDL Elph Qn 162 mg/dL High 0-100 mg/dL [facility] Other Cholesterol.total/Chol esterol in HDL [Mass ratio] 4.4 {ratio} <5.0 [facility] Other Lipid Panel 117 mg/dL Normal 35-149 mg/dL [facility] Other Lipid Panel 23 mg/dL [facility] Other PAP ACOG PANEL 2: 30 to 65on 07-18-2021 . . Normal [facility] Comment on above: Result Comment: Perf ormed at: WB Performed By: #### [id number] #### [facility] [address] [address] [address] Jorge Luis Ferris Age Gdln ACOG Testing 30-65 Normal [facility] Comment on above: Performed By: #### 4 [id number] #### [facility] [address] [place] [address] Dr. Jorge Luis Ferris DIAGNOSIS: Comment Normal [facility] Comment on above: Result Comment: NEGA TIVE FOR INTRAEPITHELIAL LESION OR MALIGNANCY. Performed at: WB Performed By: #### [id number] #### [facility] [address] [place] [address] Dr. Jorge Luis Ferris HPV Aptima Negative Normal Negative [facility] Comment on above: Result Comment: This nucleic acid amplification test detects fourteen high-risk HPV types (16,18,31,33,35,39,45,51,52,56,58,59,66,68) without differentiation. Performed at: =G Performed By: #### 4 [id number] #### [facility] [address] [place] [address] Dr. Jorge Luis Ferris Methodology: Comment Normal [facility] Comment on above: Result Comment: This liquid based ThinPrep(R) pap test was screened with the use of an image guided system. Performed at: WB Performed By: #### [id number] #### [facility] [address] [place] [address] Dr. Jorge Luis Ferris Note: Comment Normal [facility] Comment on above: Result Comment: The Pap smear is a screening test designed to aid in the detection of premalignant and malignant conditions of the uterine cervix. It is not a diagnostic procedure and should not be used as the sole means of detecting cervical cancer. Both false-positive and false-negative reports do occur. . Performed at: WB Performed By: #### [id number] #### [facility] [address] [place] [address] Dr. Jorge Luis Ferris Performed by: Comment Normal [facility] Comment on above: Result Comment: Annalise Franz, [employer] Consultant (ASCP) Performed at: WB Performed By: #### [id number] #### [facility] [address] [address] [address] Jorge Luis Ferris Specimen adequacy: Comment Normal [facility] Comment on above: Result Comment: Sati sfactory for evaluation. Endocervical and/or squamous metaplastic cells (endocervical component) are present. Areas of partially obscuring blood are present. Performed at: WB Performed By: #### 4 [id number] #### [facility] [address] [address] [address] Jorge Luis Ferris Cov[facility] 05-28 SARS-CoV-2 (COVID-19) RNA VANNESA+probe Ql (Unsp spec) Not detected Normal NOT DETECTED [facility] Comment on above: Result Comment: This test is not yet approved or cleared by the [place] FDA. When there are no FDA-approved or cleared tests available, and other criteria are met, FDA can make tests available under an emergency access mechanism called an Emergency Use Authorization (EUA). The EUA for this test is supported by the [place] of Health and Human Service's (HHS's) declaration [...] consistent with SARS-CoV-2. Performed By: #### C VDTB #### [facility] [address] [place], [place] [address] Dr. Jorge Luis Ferris Vital Signs Date Time Vital Sign Value Performing Clinician Facility 12-02-2023 09:29-0400 Body height 152.4 cm TOOLING SUPERVISOR [facility] Work Phone: [facility] 12-02-2023 09:29-0400 Body mass index (BMI) [Ratio] 47.6 kg/m2 TOOLING SUPERVISOR [facility] Work Phone: [facility] 12-02-2023 09:29-0400 Body temperature 97.2 [degF] TOOLING SUPERVISOR Juanito Easterwood Work Phone: [facility] 12-02-2023 09:29-0400 Body weight 110.67 kg TOOLING SUPERVISOR Juanito Easterwood Work Phone: [facility] 12-02-2023 09:29-0400 Diastolic blood pressure 84 mm[Hg] TOOLING SUPERVISOR Juanito Easterwood Work Phone: [facility] 12-02-2023 09:29-0400 Heart rate 50 /min TOOLING SUPERVISOR Juanito Easterwood Work Phone: [phone] [place] [address] 12-02-2023 09:29-0400 Respiratory rate 20 /min TOOLING SUPERVISOR Juanito Easterwood Work Phone: [phone] [place] [address] 12-02-2023 09:29-0400 SaO2% (BldA) [Mass fraction] 99 % TOOLING SUPERVISOR Juanito Easterwood Work Phone: [facility] 12-02-2023 09:29-0400 Systolic blood pressure 136 mm[Hg] TOOLING SUPERVISOR Juanito Easterwood Work Phone: [facility] 11-02-2023 13:39-0400 Body height 152.4 cm TOOLING SUPERVISOR Juanito Easterwood Work Phone: [facility] 11-02-2023 13:39-0400 Body mass index (BMI) [Ratio] 47.5 kg/m2 TOOLING SUPERVISOR Juanito Easterwood Work Phone: [facility] 11-02-2023 13:39-0400 Body temperature 98.1 [degF] TOOLING SUPERVISOR Juanito Easterwood Work Phone: [facility] 11-02-2023 13:39-0400 Body weight 110.39 kg TOOLING SUPERVISOR Juanito Easterwood Work Phone: [facility] 11-02-2023 13:39-0400 Diastolic blood pressure 108 mm[Hg] TOOLING SUPERVISOR Juanito Easterwood Work Phone: [facility] 11-02-2023 13:39-0400 Heart rate 81 /min TOOLING SUPERVISOR Juanito Eastersandee Work Phone: [facility] 11-02-2023 13:39-0400 Respiratory rate 18 /min TOOLING SUPERVISOR Juanito Eastersandee Work Phone: [facility] 11-02-2023 13:39-0400 SaO2% (BldA) [Mass fraction] 99 % TOOLING SUPERVISOREdilia Herreraa Sloanersandee Work Phone: [facility] 11-02-2023 13:39-0400 Systolic blood pressure 162 mm[Hg] TOOLING SUPERVISOR Juanito Eastersandee Work Phone: [facility] 10-23-2023 22:35-0400 Body temperature 98.24 [degF] Kaylinn Dokken [facility] 10-23-2023 22:35-0400 Diastolic blood pressure 97 mm[Hg] Kaylinn Dokken [facility] 10-23-2023 22:35-0400 Heart rate 85 /min Kaylinn Dokken [facility] 10-23-2023 22:35-0400 Respiratory rate 16 /min Jairylinn Dokken [facility] 10-23-2023 22:35-0400 SaO2% (BldA) [Mass fraction] 100 % Kaylinn Dokken [facility] 10-23-2023 22:35-0400 Systolic blood pressure 164 mm[Hg] Kaylinn Dokken [facility] 10-07-2023 09:26-0400 Body height 152.4 cm TOOLING SUPERVISOR Juanito Easterwood Work Phone: [facility] 10-07-2023 09:26-0400 Body mass index (BMI) [Ratio] 46.5 kg/m2 TOOLING SUPERVISOR Juanito Easterwood Work Phone: [facility] 10-07-2023 09:26-0400 Body temperature 97.2 [degF] TOOLING SUPERVISOR Juanito Easterwood Work Phone: [facility] 10-07-2023 09:26-0400 Body weight 107.95 kg TOOLING SUPERVISOR Juanito Easterwood Work Phone: [facility] 10-07-2023 09:26-0400 Diastolic blood pressure 84 mm[Hg] TOOLING SUPERVISOR Juanito Easterwood Work Phone: [facility] 10-07-2023 09:26-0400 Heart rate 75 /min TOOLING SUPERVISOR Juanito Easterwood Work Phone: [facility] 10-07-2023 09:26-0400 Respiratory rate 20 /min TOOLING SUPERVISOR Juanito Easterwood Work Phone: [facility] 10-07-2023 09:26-0400 SaO2% (BldA) [Mass fraction] 99 % TOOLING SUPERVISOR Juanito Easterwood Work Phone: [facility] 10-07-2023 09:26-0400 Systolic blood pressure 136 mm[Hg] TOOLING SUPERVISOR Juanito Easterwood Work Phone: [facility] 10-03-2023 22:30-0400 Body temperature 98.6 [degF] TOOLING SUPERVISOR Juanito Easterwood Work Phone: [facility] 10-03-2023 22:30-0400 Diastolic blood pressure 90 mm[Hg] TOOLING SUPERVISOR Juanito Easterwood Work Phone: [facility] 10-03-2023 22:30-0400 Heart rate 78 /min TOOLING SUPERVISOR Juanito Easterwood Work Phone: [facility] 10-03-2023 22:30-0400 Respiratory rate 20 /min TOOLING SUPERVISOR Juanito Easterwood Work Phone: [facility] 10-03-2023 22:30-0400 SaO2% (BldA) [Mass fraction] 99 % TOOLING SUPERVISOR Juanito Easterwood Work Phone: [facility] 10-03-2023 22:30-0400 Systolic blood pressure 165 mm[Hg] TOOLING SUPERVISOR Juanito Easterwood Work Phone: [facility] 10-03-2023 21:05-0400 Body height 152.4 cm TOOLING SUPERVISOR Juanito Easterwood Work Phone: [facility] 10-03-2023 21:05-0400 Body weight 108.7 kg TOOLING SUPERVISOR Juanito Easterwood Work Phone: [facility] 08-26-2023 09:42-0400 Body height 152.4 cm TOOLING SUPERVISOR Juanito Easterwood Work Phone: [facility] 08-26-2023 09:42-0400 Body mass index (BMI) [Ratio] 46.6 kg/m2 TOOLING SUPERVISOR Juanito Easterwood Work Phone: [facility] 08-26-2023 09:42-0400 Body temperature 97.9 [degF] TOOLING SUPERVISOR Juanito Easterwood Work Phone: [facility] 08-26-2023 09:42-0400 Body weight 108.4 kg TOOLING SUPERVISOR Juanito Easterwood Work Phone: [facility] 08-26-2023 09:42-0400 Diastolic blood pressure 82 mm[Hg] TOOLING SUPERVISOR Juanito Easterwood Work Phone: [facility] 08-26-2023 09:42-0400 Heart rate 75 /min TOOLING SUPERVISOR Juanito Easterwood Work Phone: [facility] 08-26-2023 09:42-0400 Respiratory rate 20 /min TOOLING SUPERVISOREdilia Solomon Easterwood Work Phone: [facility] 08-26-2023 09:42-0400 SaO2% (BldA) [Mass fraction] 99 % TOOLING SUPERVISOREdilia Lisaersandee Work Phone: [facility] 08-26-2023 09:42-0400 Systolic blood pressure 128 mm[Hg] TOOLING SUPERVISOR Juanito Eastersandee Work Phone: [facility] 07-14-2023 08:17-0400 Body height 152.4 cm TOOLING SUPERVISOR Juanito Lisaersandee Work Phone: [facility] 07-14-2023 08:17-0400 Body mass index (BMI) [Ratio] 44.6 kg/m2 TOOLING SUPERVISOREdilia Lisaersandee Work Phone: [facility] 07-14-2023 08:17-0400 Body temperature 98 [degF] TOOLING SUPERVISOR Juanito Lisaersandee Work Phone: [facility] 07-14-2023 08:17-0400 Body weight 103.64 kg TOOLING SUPERVISOREdilia Lisaersandee Work Phone: [facility] 07-14-2023 08:17-0400 Diastolic blood pressure 88 mm[Hg] TOOLING SUPERVISOREdilia Solomon Easterwood Work Phone: [facility] 07-14-2023 08:17-0400 Heart rate 88 /min TOOLING SUPERVISOR Juanito Easterwood Work Phone: [facility] 07-14-2023 08:17-0400 Respiratory rate 20 /min TOOLING SUPERVISOR Juanito Easterwood Work Phone: [facility] 07-14-2023 08:17-0400 SaO2% (BldA) [Mass fraction] 98 % TOOLING SUPERVISOREdilia Solomon Easterwood Work Phone: [facility] 07-14-2023 08:17-0400 Systolic blood pressure 130 mm[Hg] TOOLING SUPERVISOR Juanito Easterwood Work Phone: [facility] 06-04-2023 11:48-0500 Body height 152.4 cm TOOLING SUPERVISOR Juanito Easterwood Work Phone: [facility] 06-04-2023 11:48-0500 Body mass index (BMI) [Ratio] 44.9 kg/m2 TOOLING SUPERVISOR Juanito Easterwood Work Phone: [facility] 06-04-2023 11:48-0500 Body temperature 98.3 [degF] TOOLING SUPERVISOR Juanito Easterwood Work Phone: [facility] 06-04-2023 11:48-0500 Body weight 104.32 kg TOOLING SUPERVISOR Juanito Easterwood Work Phone: [facility] 06-04-2023 11:48-0500 Diastolic blood pressure 84 mm[Hg] TOOLING SUPERVISOR Juanito Easterwood Work Phone: [facility] 06-04-2023 11:48-0500 Heart rate 83 /min TOOLING SUPERVISOR Juanito Easterwood Work Phone: [facility] 06-04-2023 11:48-0500 Respiratory rate 18 /min TOOLING SUPERVISOR Juanito Easterwood Work Phone: [facility] 06-04-2023 11:48-0500 SaO2% (BldA) [Mass fraction] 98 % TOOLING SUPERVISOR Juanito Easterwood Work Phone: [facility] 06-04-2023 11:48-0500 Systolic blood pressure 124 mm[Hg] TOOLING SUPERVISOR Juanito Easterwood Work Phone: [facility] 05-13-2023 22:30-0500 Diastolic blood pressure 76 mm[Hg] TOOLING SUPERVISOR Juanito Easterwood Work Phone: [facility] 05-13-2023 22:30-0500 Heart rate 78 /min TOOLING SUPERVISOR Juanito Easterwood Work Phone: [facility] 05-13-2023 22:30-0500 Respiratory rate 16 /min TOOLING SUPERVISOR Juanito Easterwood Work Phone: [facility] 05-13-2023 22:30-0500 SaO2% (BldA) [Mass fraction] 97 % TOOLING SUPERVISOR Juanito Easterwood Work Phone: [facility] 05-13-2023 22:30-0500 Systolic blood pressure 132 mm[Hg] TOOLING SUPERVISOR Juanito Easterwood Work Phone: [facility] 05-13-2023 18:46-0500 Body height 152.4 cm TOOLING SUPERVISOR Juanito Easterwood Work Phone: [facility] 05-13-2023 18:46-0500 Body temperature 98.7 [degF] TOOLING SUPERVISOR Juanito Easterwood Work Phone: [facility] 05-13-2023 18:46-0500 Body weight 104 kg TOOLING SUPERVISOR Juanito Easterwood Work Phone: [facility] 05-12-2023 11:08-0500 Body height 152.4 cm TOOLING SUPERVISOR Juanito Easterwood Work Phone: [facility] 05-12-2023 11:08-0500 Body mass index (BMI) [Ratio] 44.5 kg/m2 TOOLING SUPERVISOR Juanito Easterwood Work Phone: [facility] 05-12-2023 11:08-0500 Body temperature 97.4 [degF] TOOLING SUPERVISOR Juanito Easterwood Work Phone: [facility] 05-12-2023 11:08-0500 Body weight 103.41 kg TOOLING SUPERVISOR Juanito Easterwood Work Phone: [facility] 05-12-2023 11:08-0500 Diastolic blood pressure 80 mm[Hg] TOOLING SUPERVISOR Juanito Easterwood Work Phone: [facility] 05-12-2023 11:08-0500 Heart rate 74 /min TOOLING SUPERVISOR Juanito Easterwood Work Phone: [facility] 05-12-2023 11:08-0500 Respiratory rate 20 /min TOOLING SUPERVISOR Juanito Easterwood Work Phone: [facility] 05-12-2023 11:08-0500 SaO2% (BldA) [Mass fraction] 99 % TOOLING SUPERVISOR Juanito Easterwood Work Phone: [facility] 05-12-2023 11:08-0500 Systolic blood pressure 126 mm[Hg] TOOLING SUPERVISOR Juanito Easterwood Work Phone: [facility] 05-07-2023 21:44-0500 Body temperature 98.2 [degF] TOOLING SUPERVISOR Juanito Easterwood Work Phone: [facility] 05-07-2023 21:44-0500 Diastolic blood pressure 75 mm[Hg] TOOLING SUPERVISOR Juanito Easterwood Work Phone: [facility] 05-07-2023 21:44-0500 Heart rate 71 /min TOOLING SUPERVISOR Juanito Easterwood Work Phone: [facility] 05-07-2023 21:44-0500 Respiratory rate 18 /min TOOLING SUPERVISOR Juanito Easterwood Work Phone: [facility] 05-07-2023 21:44-0500 SaO2% (BldA) [Mass fraction] 98 % TOOLING SUPERVISOR Juanito Easterwood Work Phone: [facility] 05-07-2023 21:44-0500 Systolic blood pressure 127 mm[Hg] TOOLING SUPERVISOR Juanito Easterwood Work Phone: [facility] 05-07-2023 19:32-0500 Body height 152.4 cm TOOLING SUPERVISOR Juanito Easterwood Work Phone: [facility] 05-07-2023 19:32-0500 Body weight 103.7 kg TOOLING SUPERVISOR Juanito Easterwood Work Phone: [facility] 05-05-2023 10:20-0500 Body mass index (BMI) [Ratio] 44.55 kg/m2 Melissa Sunita [employer]ER[employer] MACHINE MECHANIC Work Phone: [facility] 05-05-2023 10:20-0500 Body temperature 97.7 [degF] Melissa Sunita XEROX MACHINE MECHANIC Work Phone: [facility] 05-05-2023 10:20-0500 Body weight 104.33 kg Melissa Sunita [employer]EROX MACHINE MECHANIC Work Phone: [facility] 05-05-2023 10:20-0500 Diastolic blood pressure 62 mm[Hg] Melissa Dorsey [employer]EROX MACHINE MECHANIC Work Phone: [facility] 05-05-2023 10:20-0500 Heart rate 81 /min Melissa Sunita [employer]EROX MACHINE MECHANIC Work Phone: [facility] 05-05-2023 10:20-0500 SaO2% (BldA) [Mass fraction] 97 % Melissa Sunita XEROX MACHINE MECHANIC Work Phone: [facility] 05-05-2023 10:20-0500 Systolic blood pressure 124 mm[Hg] Melissaosmel Dorsey XEROX MACHINE MECHANIC Work Phone: [facility] 03-28-2023 00:51-0500 Diastolic blood pressure 71 mm[Hg] TOOLING SUPERVISOR Juanito Easterwood Work Phone: [facility] 03-28-2023 00:51-0500 Heart rate 76 /min TOOLING SUPERVISOR Juanito Easterwood Work Phone: [facility] 03-28-2023 00:51-0500 Respiratory rate 20 /min TOOLING SUPERVISOR Juanito Easterwood Work Phone: [facility] 03-28-2023 00:51-0500 SaO2% (BldA) [Mass fraction] 98 % TOOLING SUPERVISOR Juanito Easterwood Work Phone: [facility] 03-28-2023 00:51-0500 Systolic blood pressure 122 mm[Hg] TOOLING SUPERVISOR Juanito Easterwood Work Phone: [facility] 03-27-2023 21:15-0500 Body height 152.4 cm TOOLING SUPERVISOREdilia Deleon Work Phone: [facility] 03-27-2023 21:15-0500 Body temperature 98 [degF] TOOLING SUPERVISOR Juanito Deleon Work Phone: [facility] 03-27-2023 21:15-0500 Body weight 99.79 kg TOOLING SUPERVISOR Juanito Deleon Work Phone: [facility] 02-17-2023 09:30-0500 Body height 152.4 cm Uriah Skinner Other [facility] 02-17-2023 09:30-0500 Body mass index (BMI) [Ratio] 43.49 kg/m2 Uriah Skinner Other [employer] Other 02-17-2023 09:30-0500 Body weight 101.02 kg Uriah Skinner Other [employer] Other 02-17-2023 09:30-0500 Body weight 101.01 kg RUTH ANN Deleon Work Phone: [facility] 02-17-2023 09:30-0500 Diastolic blood pressure 81 mm[Hg] Uriah Skinner Other [facility] 02-17-2023 09:30-0500 Respiratory rate 18 /min Uriah Skinner Other [employer] Other 02-17-2023 09:30-0500 SaO2% (BldA) [Mass fraction] 98 % Uriah Skinner Other [employer] Other 02-17-2023 09:30-0500 Systolic blood pressure 117 mm[Hg] Uriah Skinner Other [facility] 12-04-2022 14:00-0400 Body height 152.4 cm Elinor Workman Other [employer] Other 11-24-2022 11:00-0400 Body height 152.4 cm Uriah Richarddiff Other [employer] Other 11-24-2022 11:00-0400 Body mass index (BMI) [Ratio] 45.64 kg/m2 Uriah Richarddiff Other [employer] Other 11-24-2022 11:00-0400 Body weight 106.01 kg Uriah Skinner Other [employer] Other 11-24-2022 11:00-0400 Diastolic blood pressure 81 mm[Hg] Uriah Ricahrddiff Other [employer] Other 11-24-2022 11:00-0400 Respiratory rate 18 /min Uriah Skinner Other [employer] Other 11-24-2022 11:00-0400 SaO2% (BldA) [Mass fraction] 97 % Uriah Richarddiff Other [employer] Other 11-24-2022 11:00-0400 Systolic blood pressure 125 mm[Hg] Uriah Richarddiff Other [employer] Other 08-11-2022 14:00-0400 Body height 152.4 cm Juanito Deleon Other [employer] Other 08-11-2022 14:00-0400 Body mass index (BMI) [Ratio] 46.28 kg/m2 Juanito Easterwood Other [employer] Other 08-11-2022 14:00-0400 Body temperature 97.6 [degF] Juanito Easterwood Other [employer] Other 08-11-2022 14:00-0400 Body weight 107.5 kg Juanito Easterwood Other [employer] Other 08-11-2022 14:00-0400 Diastolic blood pressure 76 mm[Hg] Juanito Easterwood Other [employer] Other 08-11-2022 14:00-0400 Respiratory rate 20 /min Juanito Easterwood Other [employer] Other 08-11-2022 14:00-0400 SaO2% (BldA) [Mass fraction] 98 % Juanito Easterwood Other [employer] Other 08-11-2022 14:00-0400 Systolic blood pressure 122 mm[Hg] Juanito Easterwood Other [employer] Other 07-28-2022 15:05-0400 Diastolic blood pressure 76 mm[Hg] TOOLING SUPERVISOR Juanito Easterwood Work Phone: [facility] 07-28-2022 15:05-0400 Heart rate 90 /min TOOLING SUPERVISOR Juanito Easterwood Work Phone: [facility] 07-28-2022 15:05-0400 Respiratory rate 16 /min TOOLING SUPERVISOR Juanito Easterwood Work Phone: [facility] 07-28-2022 15:05-0400 SaO2% (BldA) [Mass fraction] 95 % TOOLING SUPERVISOR Juanito Easterwood Work Phone: [facility] 07-28-2022 15:05-0400 Systolic blood pressure 119 mm[Hg] TOOLING SUPERVISOR Juanito Easterwood Work Phone: [facility] 07-28-2022 13:36-0400 Body height 152.4 cm TOOLING SUPERVISOR Juanito Easterwood Work Phone: [facility] 07-28-2022 13:36-0400 Body weight 107.5 kg TOOLING SUPERVISOR Juanito Easterwood Work Phone: [facility] 07-14-2022 10:45-0400 Body height 152.4 cm Juanito Easterwood Other [employer] Other 07-14-2022 10:45-0400 Body mass index (BMI) [Ratio] 46.28 kg/m2 Juanito Sloanerwood Other [employer] Other 07-14-2022 10:45-0400 Body temperature 98.2 [degF] Juanito Easterwood Other [employer] Other 07-14-2022 10:45-0400 Body weight 107.5 kg Juanito Sloanersandee Other [employer] Other 07-14-2022 10:45-0400 Diastolic blood pressure 70 mm[Hg] Juanito Easterwood Other [employer] Other 07-14-2022 10:45-0400 Respiratory rate 20 /min Juanito Easterwood Other [employer] Other 07-14-2022 10:45-0400 SaO2% (BldA) [Mass fraction] 98 % Juanito Easterwood Other [employer] Other 07-14-2022 10:45-0400 Systolic blood pressure 128 mm[Hg] Juanito Easterwood Other [employer] Other 06-23-2022 11:00-0400 Body height 152.4 cm Juanito Easterwood Other [employer] Other 06-23-2022 11:00-0400 Body mass index (BMI) [Ratio] 46.09 kg/m2 Juanito Easterwood Other [employer] Other 06-23-2022 11:00-0400 Body temperature 98.3 [degF] Juanito Easterwood Other [employer] Other 06-23-2022 11:00-0400 Body weight 107.05 kg Juanito Easterwood Other [employer] Other 06-23-2022 11:00-0400 Diastolic blood pressure 82 mm[Hg] Juanito Easterwood Other [employer] Other 06-23-2022 11:00-0400 Respiratory rate 20 /min Juanito Easterwood Other [employer] Other 06-23-2022 11:00-0400 SaO2% (BldA) [Mass fraction] 98 % Juanito Easterwood Other [employer] Other 06-23-2022 11:00-0400 Systolic blood pressure 130 mm[Hg] Juanito Easterwood Other [employer] Other 06-19-2022 15:15-0400 Body height 152.4 cm Johann Moe Other [employer] Other 06-19-2022 15:15-0400 Body mass index (BMI) [Ratio] 46.48 kg/m2 Johann Moe Other [employer] Other 06-19-2022 15:15-0400 Body weight 107.96 kg Johann Moe Other [employer] Other 06-19-2022 15:15-0400 Diastolic blood pressure 91 mm[Hg] Johann Moe Other [employer] Other 06-19-2022 15:15-0400 Respiratory rate 20 /min Johann Moe Other [employer] Other 06-19-2022 15:15-0400 Systolic blood pressure 152 mm[Hg] Johann Moe Other [employer] Other 05-01-2022 11:00-0500 Body height 152.4 cm Juanito [employer] Other [employer] Other 05-01-2022 11:00-0500 Body mass index (BMI) [Ratio] 45.7 kg/m2 Juanito [employer] Other [employer] Other 05-01-2022 11:00-0500 Body temperature 97.5 [degF] Juanito [employer] Other [employer] Other 05-01-2022 11:00-0500 Body weight 106.14 kg Juanito [employer] Other [employer] Other 05-01-2022 11:00-0500 Diastolic blood pressure 78 mm[Hg] Juanito Easterwood Other [employer] Other 05-01-2022 11:00-0500 Respiratory rate 20 /min Juanito Easterwood Other [employer] Other 05-01-2022 11:00-0500 SaO2% (BldA) [Mass fraction] 99 % Juanito Easterwood Other [employer] Other 05-01-2022 11:00-0500 Systolic blood pressure 122 mm[Hg] Juanito Easterwood Other [employer] Other 04-03-2022 11:00-0500 Body height 152.4 cm Juanito Easterwood Other [employer] Other 04-03-2022 11:00-0500 Body mass index (BMI) [Ratio] 46.67 kg/m2 Juanito Easterwood Other [employer] Other 04-03-2022 11:00-0500 Body temperature 98.2 [degF] Juanito Easterwood Other [employer] Other 04-03-2022 11:00-0500 Body weight 108.41 kg Juanito Easterwood Other [employer] Other 04-03-2022 11:00-0500 Diastolic blood pressure 70 mm[Hg] Juanito Easterwood Other [employer] Other 04-03-2022 11:00-0500 Respiratory rate 20 /min Juanito Easterwood Other [employer] Other 04-03-2022 11:00-0500 SaO2% (BldA) [Mass fraction] 99 % Juanito Easterwood Other [employer] Other 04-03-2022 11:00-0500 Systolic blood pressure 118 mm[Hg] Juanito Easterwood Other [employer] Other 01-28-2022 14:30-0400 Body height 152.4 cm Juanito Easterwood Other [employer] Other 01-28-2022 14:30-0400 Body mass index (BMI) [Ratio] 48.43 kg/m2 Juanito Easterwood Other [employer] Other 01-28-2022 14:30-0400 Body temperature 96.1 [degF] Juanito Easterwood Other [employer] Other 01-28-2022 14:30-0400 Body weight 112.49 kg Juanito Easterwood Other [employer] Other 01-28-2022 14:30-0400 Diastolic blood pressure 84 mm[Hg] Juanito Easterwood Other [employer] Other 01-28-2022 14:30-0400 Respiratory rate 20 /min Juanito Easterwood Other [employer] Other 01-28-2022 14:30-0400 SaO2% (BldA) [Mass fraction] 99 % Juanito Easterwood Other [employer] Other 01-28-2022 14:30-0400 Systolic blood pressure 126 mm[Hg] Juanito Easterwood Other [employer] Other 10-14-2021 14:00-0400 Body height 152.4 cm Juanito Easterwood Other [employer] Other 10-14-2021 14:00-0400 Body temperature 97.1 [degF] Juanito Easterwood Other [employer] Other 10-14-2021 14:00-0400 Diastolic blood pressure 80 mm[Hg] Juanito Easterwood Other [employer] Other 10-14-2021 14:00-0400 Respiratory rate 18 /min Juanito Easterwood Other [employer] Other 10-14-2021 14:00-0400 SaO2% (BldA) [Mass fraction] 99 % Juanito Easterwood Other [employer] Other 10-14-2021 14:00-0400 Systolic blood pressure 122 mm[Hg] Juanito Easterwood Other [employer] Other 09-26-2021 16:30-0400 Body height 152.4 cm Juanito Easterwood Other [employer] Other 09-26-2021 16:30-0400 Body mass index (BMI) [Ratio] 47.45 kg/m2 Juanito Easterwood Other [employer] Other 09-26-2021 16:30-0400 Body temperature 98.1 [degF] Juanito Easterwood Other [employer] Other 09-26-2021 16:30-0400 Body weight 110.22 kg Juanito Easterwood Other [employer] Other 09-26-2021 16:30-0400 Diastolic blood pressure 100 mm[Hg] Juanito Easterwood Other [employer] Other 09-26-2021 16:30-0400 Respiratory rate 20 /min Juanito Easterwood Other [employer] Other 09-26-2021 16:30-0400 SaO2% (BldA) [Mass fraction] 99 % Juanito Easterwood Other [employer] Other 09-26-2021 16:30-0400 Systolic blood pressure 148 mm[Hg] Juanito Easterwood Other [employer] Other 09-17-2021 10:30-0400 Body height 152.4 cm Juanito Sloanerwood Other [employer] Other 09-17-2021 10:30-0400 Body mass index (BMI) [Ratio] 46.87 kg/m2 Juanito Easterwood Other [employer] Other 09-17-2021 10:30-0400 Body temperature 98 [degF] Juanito Easterwood Other [employer] Other 09-17-2021 10:30-0400 Body weight 108.86 kg Juanito Easterwood Other [employer] Other 09-17-2021 10:30-0400 Diastolic blood pressure 64 mm[Hg] Juanito Easterwood Other [employer] Other 09-17-2021 10:30-0400 Respiratory rate 20 /min Juanito Easterwood Other [employer] Other 09-17-2021 10:30-0400 SaO2% (BldA) [Mass fraction] 99 % Juanito Easterwood Other [employer] Other 09-17-2021 10:30-0400 Systolic blood pressure 128 mm[Hg] Juanito Easterwood Other [employer] Other 09-02-2021 10:30-0400 Body height 152.4 cm Juanito Easterwood Other [employer] Other 09-02-2021 10:30-0400 Body mass index (BMI) [Ratio] 46.87 kg/m2 Juanito Easterwood Other [employer] Other 09-02-2021 10:30-0400 Body temperature 98.2 [degF] Juanito Easterwood Other [employer] Other 09-02-2021 10:30-0400 Body weight 108.86 kg Juanito Easterwood Other [employer] Other 09-02-2021 10:30-0400 Diastolic blood pressure 84 mm[Hg] Juanito Easterwood Other [employer] Other 09-02-2021 10:30-0400 Respiratory rate 20 /min Juanito Easterwood Other [employer] Other 09-02-2021 10:30-0400 SaO2% (BldA) [Mass fraction] 98 % Juanito Easterwood Other [employer] Other 09-02-2021 10:30-6370 Systolic blood pressure 128 mm[Hg] Juanito Deleon Other [facility] [employer] Other Encounters Encounter Date Encounter Type Care Provider Facility Start: 02-19-2024 End: 02-20-2024 Emergency department patient visit Juanito Deleon Facility:[facility] Start: 12-02-2023 End: 12-02-2023 ambulatory TOOLING SUPERVISOR Juanito Deleon Work Phone: [facility] Work Phone: Start: 12-02-2023 End: 12-02-2023 Patient encounter procedure TOOLING SUPERVISOR Juanito Deleon Work Phone: [facility] Physician Group-[facility] Work Phone: Start: 11-20-2023 End: 11-20-2023 Patient encounter procedure TOOLING SUPERVISOR Juanito Deleon Work Phone: [facility] [place] Work Phone: Start: 11-20-2023 End: 11-20-2023 ambulatory TOOLING SUPERVISOR Juanito Deleon Work Phone: [facility] Work Phone: Start: 11-02-2023 End: 11-02-2023 ambulatory MARINE EQUIPMENT RESEARCH ENGINEER JUANITO DELEON Facility:[facility] Start: 11-02-2023 End: 11-02-2023 Patient encounter procedure JUANITO DELEON [facility] Start: 11-02-2023 End: 11-02-2023 ambulatory TOOLING SUPERVISOR Juanito Deleon Work Phone: [facility] Work Phone: Start: 11-02-2023 End: 11-02-2023 Patient encounter procedure TOOLING SUPERVISOR Juanito Deleon Work Phone: [facility] Physician [facility] Work Phone: Start: 10-23-2023 End: 10-23-2023 Emergency department patient visit Wesly Lopez [facility] Start: 10-07-2023 End: 10-07-2023 ambulatory TOOLING SUPERVISOR Juanito Deleon Work Phone: [facility] Work Phone: Start: 10-07-2023 End: 10-07-2023 Patient encounter procedure TOOLING SUPERVISOR Juanito Deleon Work Phone: [facility] Physician [facility] Work Phone: Start: 10-03-2023 End: 10-03-2023 Emergency department patient visit RUTH ANN Deleon Work Phone: [facility] Work Phone: Start: 08-26-2023 End: 08-26-2023 ambulatory TOOLING SUPERVISOR Juanito Deleon Work Phone: [facility] Work Phone: Start: 08-26-2023 End: 08-26-2023 Patient encounter procedure RUTH ANN Deleon Work Phone: [facility] Physician [facility] Work Phone: Start: 08-12-2023 End: 08-12-2023 ambulatory MOON OLEA Not Available Start: 08-12-2023 Non-patient / Non-visit TOOLING SUPERVISOR Juanito Deleon Work Phone: [facility] Physician [facility] Work Phone: Start: 07-30-2023 Telephone encounter Jude yost PA-C Work Phone: Otolaryngology Comment on above: Letter Start: 07-23-2023 End: 07-23-2023 ambulatory JUDE APONTE Facility:[facility] Start: 07-23-2023 End: 07-23-2023 Patient encounter procedure Jude Aponte PA-C Work Phone: Otolaryngology Comment on above: H/O otitis media (Pr imary Dx); H/O acute otitis externa Start: 07-14-2023 End: 07-14-2023 ambulatory TOOLING SUPERVISOR Juanito Deleon Work Phone: [facility] Work Phone: Start: 07-14-2023 End: 07-14-2023 Patient encounter procedure TOOLING SUPERVISOR Juanito Deleon Work Phone: [facility]ician [facility] Work Phone: Start: 06-04-2023 End: 06-04-2023 Patient encounter procedure TOOLING SUPERVISOR Juanito Deleon Work Phone: [facility] Physician [facility] Work Phone: Start: 05-13-2023 End: 05-13-2023 Emergency department patient visit RUTH ANN Deleon Work Phone: [facility] Work Phone: Start: 05-12-2023 End: 05-12-2023 ambulatory TOOLING SUPERVISOR Juanito Deleon Work Phone: [facility] Work Phone: Start: 05-12-2023 End: 05-12-2023 Patient encounter procedure TOOLING SUPERVISOR Juanito Deleon Work Phone: [facility] [facility] Work [facility]: Start: 05-07-2023 End: 05-08-2023 Emergency department patient visit TOOLING SUPERVISOR Juanito Deleon Work Phone: [facility] Work Phone: Start: 05-05-2023 End: 05-05-2023 ambulatory MELISSA DORSEY Not Available Start: 05-05-2023 End: 05-05-2023 Office outpatient visit 25 minutes Melissa Dorsey XEROX MACHINE MECHANIC [facility] Phone[facility] Comment on above: Acute diffuse otitis externa of left ear (Primary Dx) Start: 04-16-2023 End: 04-16-2023 ambulatory TOOLING SUPERVISOR Juanito Deleon Work Phone: [facility] Work Phone: Start: 04-16-2023 End: 04-16-2023 Departed Referred TOOLING SUPERVISOR Juanito Deleon Work Phone: [facility]-LAB [facility] Start: 04-10-2023 Patient encounter procedure RUTH ANN Deleon Work Phone: [facility] Physician Group- Start: 04-02-2023 End: 04-02-2023 ambulatory Juanito Deleon Other [employer] Other Start: 04-02-2023 Telephone encounter Juanito Deleon [facility] Start: 03-27-2023 End: 03-28-2023 Emergency department patient visit RUTH ANN Deleon Work Phone: [facility] Work Phone: Start: 02-23-2023 End: 02-23-2023 ambulatory Juanito Deleon Other [employer] Other Start: 02-23-2023 Telephone encounter Juanitocameron Deleon [facility] Start: 02-18-2023 End: 02-18-2023 ambulatory Juanitocameron Deleon Other [employer] Other Start: 02-18-2023 Telephone encounter Juanitocameron Deleon [facility] Start: 02-17-2023 Follow-up encounter Uriah Hammondosmin Alan [facility] Start: 02-17-2023 End: 02-17-2023 ambulatory TOOLING SUPERVISOR Juanito Deleon Work Phone: [employer] Other Start: 02-17-2023 End: 02-17-2023 Patient encounter procedure RUTH ANN Deleon Work Phone: [facility]-Lab [facility] Start: 02-17-2023 Registered Recurring TOOLING SUPERVISOR Juanito Deleon Work Phone: [facility]-Weight Management Work Phone: Start: 02-17-2023 End: 02-17-2023 Patient encounter procedure RUTH ANN Deleon Work Phone: [facility] Physician Group[facility] Work Phone: Start: 02-12-2023 End: 02-12-2023 ambulatory Uriah Richarddiff Other [employer] Other Start: 02-12-2023 Telephone encounter Uriah Susanne F chelsiedanyel [facility] Start: 01-15-2023 End: 01-15-2023 ambulatory Uriah Richarddiff Other [employer] Other Start: 01-15-2023 Telephone encounter Uriahkyree Richarddiosmin borges [facility] Start: 01-14-2023 End: 01-14-2023 ambulatory Uriah Richarddiff Other [employer] Other Start: 01-14-2023 Telephone encounter Uriah Richarddiosmin [facility] Start: 12-11-2022 End: 12-11-2022 ambulatory Juanito Deleon Other [employer] Other Start: 12-11-2022 ONLINE E/M AUGUSTO VANG 02-16 Juanito Deleon [facility] Start: 12-04-2022 End: 12-04-2022 ambulatory Elinor Workman Other [employer] Other Start: 12-04-2022 IBT FOR OBESITY GROU P 2-10 30M Elinor [facility] Start: 11-24-2022 End: 11-24-2022 ambulatory Uriah Skinner Other [employer] Other Start: 11-24-2022 Follow-up encounter Uriah Alan [facility] Start: 11-24-2022 Telephone encounter Juanitocameron Lisabrooks [facility] Start: 10-15-2022 End: 10-15-2022 ambulatory Uriah Skinner Other [employer] Other Start: 10-15-2022 Telephone encounter Uriah Alan [employer] Start: 09-26-2022 End: 09-26-2022 ambulatory Juanitocameron Deleon Other [employer] Other Start: 09-26-2022 Telephone encounter Juanito Deleon [employer] Start: 09-15-2022 End: 09-15-2022 ambulatory Juanitocameron Pagewood Other [employer] Other Start: 09-15-2022 Telephone encounter Juanitocameron Lisaritikawood [facility] Start: 08-11-2022 End: 08-11-2022 ambulatory Juanitocameron Pagewood Other [employer] Other Start: 08-11-2022 Office outpatient visit 25 minutes Juanitocameron Lisaerwood [facility] Start: 07-29-2022 End: 07-29-2022 ambulatory Neftali Snow Other [facility] Other Start: 07-29-2022 Telephone encounter Neftali Alan [facility] Start: 07-28-2022 End: 07-28-2022 Admission to same day surgery center TOOLING SUPERVISOR Juanito Deleon Work Phone: [facility] Work Phone: Start: 07-28-2022 End: 07-28-2022 ambulatory TOOLING SUPERVISOR Juanito Deleon Work Phone: [facility] Work Phone: Start: 07-21-2022 End: 07-21-2022 ambulatory Juanito Lisaerwood Other [facility] Other Start: 07-21-2022 Telephone encounter Juanito Pagewood [facility] Start: 07-14-2022 End: 07-14-2022 ambulatory Juanito Lisaerwood Other [facility] Other Start: 07-14-2022 Office outpatient visit 15 minutes Juanitocameron Lisaerwood [facility] Start: 07-14-2022 Physical examination Juanito Lisaerwood [facility] Start: 06-23-2022 End: 06-23-2022 ambulatory Juanito Lisaerwood Other [facility] Other Start: 06-23-2022 Office outpatient visit 40 minutes Juanitocameron Lisaerwood [facility] Start: 06-23-2022 Telephone encounter Moises hannah [facility] Start: 06-19-2022 End: 06-19-2022 ambulatory Johann Moe Other [facility] Other Start: 06-19-2022 FQ[facility] visit new patient Johann Moe [facility] Start: 06-10-2022 End: 06-10-2022 ambulatory Juanitocameron Lisaerwood Other [facility] Other Start: 06-10-2022 Telephone encounter Juanito Sloanerwood [facility] Start: 06-06-2022 End: 06-06-2022 ambulatory BARRINGTON KEARNS Facility:[facility]1 Start: 05-15-2022 End: 05-15-2022 ambulatory Juanito Easterwood Other [facility] Other Start: 05-15-2022 Telephone encounter Juanito Sloanerwood [facility] Start: 05-08-2022 End: 05-09-2022 ambulatory JUANITO SLOANERWOOD Facility:[facility] Start: 05-01-2022 End: 05-01-2022 ambulatory Juanito Easterwood Other [facility] Other Start: 05-01-2022 Office outpatient visit 15 minutes Juanito Easterwood [facility] Start: 04-04-2022 End: 04-04-2022 ambulatory Juanito Easterwood Other [facility] Other Start: 04-04-2022 Telephone encounter Juanito Sloanerwood [facility] Start: 04-03-2022 End: 04-03-2022 ambulatory Juanito Sloanerwood Other [facility] Other Start: 04-03-2022 Office outpatient visit 25 minutes Juanito Easterwood [facility] Start: 03-19-2022 End: 03-19-2022 ambulatory Juanito Easterwood Other [facility] Other Start: 03-19-2022 PF ONLINE E/M PHY VIRTUL - Juanito Easterwood [facility] Start: 03-13-2022 End: 03-13-2022 ambulatory Juanito Easterwood Other [facility] Other Start: 03-13-2022 Telephone encounter Juanito Easterwood [facility] Start: 03-12-2022 End: 03-12-2022 ambulatory Juanito Easterwood Other [facility] Other Start: 03-12-2022 Telephone encounter Juanito Easterwood [facility] Start: 03-03-2022 End: 03-03-2022 ambulatory Johann Ditty Other [facility] Other Start: 03-03-2022 Telephone encounter Johann Moe [facility] Start: 02-24-2022 End: 02-24-2022 ambulatory Juanito Easterwood Other [facility] Other Start: 02-24-2022 Telephone encounter Juanito Easterwood [facility] Start: 02-17-2022 End: 02-17-2022 ambulatory Juanito Easterwood Other [facility] Other Start: 02-17-2022 Telephone encounter Juanito Easterwood [facility] Start: 02-06-2022 End: 02-06-2022 ambulatory Juanito Easterwood Other [facility] Other Start: 02-06-2022 Telephone encounter Juanito Easterwood [facility] Start: 02-05-2022 End: 02-06-2022 ambulatory JUANITO EASTERWOOD Facility:[facility]1 Start: 02-04-2022 End: 02-05-2022 ambulatory JUANITO EASTERWOOD Facility:[facility] Start: 01-28-2022 End: 01-28-2022 ambulatory Juanito Easterwood Other [facility] Other Start: 01-28-2022 Office outpatient visit 40 minutes Juanito Easterwood [facility] Start: 01-22-2022 End: 01-22-2022 ambulatory Juanito Easterwood Other [facility] Other Start: 01-22-2022 Telephone encounter Juanito Easterwood [facility] Start: 01-20-2022 End: 01-20-2022 ambulatory Juanito Easterwood Other [facility] Other Start: 01-20-2022 Telephone encounter Juanito Easterwood [facility] Start: 01-16-2022 End: 01-16-2022 ambulatory Juanito Easterwood Other [facility] Other Start: 01-16-2022 Telephone encounter Juanito Easterwood [facility] Start: 01-13-2022 End: 01-13-2022 ambulatory Natalie Blackwell Other [facility] Other Start: 01-13-2022 Telephone encounter Natalie Blackwell [facility] Start: 12-19-2021 End: 12-19-2021 ambulatory Juanito Easterwood Other [facility] Other Start: 12-19-2021 Telephone encounter Juanito Easterwood [facility] Start: 11-19-2021 End: 11-19-2021 ambulatory Juanito Easterwood Other [facility] Other Start: 11-19-2021 Telephone encounter Juanito Easterwood [facility] Start: 10-29-2021 End: 10-29-2021 ambulatory Juanito Easterwood Other [facility] Other Start: 10-29-2021 Telephone encounter Juanito Easterwood [facility] Start: 10-14-2021 End: 10-14-2021 ambulatory Juanito Easterwood Other [facility] Other Start: 10-14-2021 Office outpatient visit 40 minutes Juanito Easterwood [facility] Start: 10-14-2021 Telephone encounter Juanito Pagewood [facility] Start: 10-10-2021 ambulatory JUANITO SLOANERWOOD Facilit y:[facility]1 Start: 10-07-2021 End: 10-07-2021 ambulatory Junaito Easterwood Other [facility] Other Start: 10-07-2021 Telephone encounter Juanito Pagewood [facility] Start: 09-26-2021 End: 09-26-2021 ambulatory Juanito Easterwood Other [facility] Other Start: 09-26-2021 Office outpatient visit 40 minutes Juanito Lisaerwood [facility] Start: 09-19-2021 End: 09-19-2021 ambulatory Juanito Sloanerwood Other [facility] Other Start: 09-19-2021 Telephone encounter Juanito Pagewood [facility] Start: 09-17-2021 End: 09-17-2021 ambulatory Juanito Easterwood Other [facility] Other Start: 09-17-2021 Office outpatient visit 40 minutes Juanito Sloanerwood [facility] Start: 09-02-2021 End: 09-02-2021 ambulatory Juanito Easterwood Other [facility] Other Start: 09-02-2021 Encounter for genera l adult medical examination without abnormal findings Juanito Sloanerwood [facility] Start: 09-02-2021 Initial preventive medicine new pt age 18-39yrs Juanito Sloanerwood [facility] Start: 07-10-2021 End: 07-10-[address] MARY ALCARAZ . Facility:[facility] Start: 06-12-2021 End: 06-12-2021 ambulatory OLI DUMONT Facility:[facility] Procedures Date Procedure Procedure Detail Performing Clinician Start: 11-20-2023 Doppler ultrasonography of kidney TOOLING SUPERVISOR D mago Easterwood Work Phone: Start: 11-20-2023 Ultrasonography of bilateral kidneys RUTH ANN Deleon Work Phone: Start: 10-03-2023 Plain chest X-ray RUTH ANN Deleon Work Phone: Start: 05-13-2023 CT of facial bones with contrast RUTH ANN [employer] Work Phone: Start: 05-13-2023 CT of head without contrast RUTH ANN Deleon Work Phone: Start: 05-13-2023 SARS-CoV-2, Influenza & RSV (PCR) RUTH ANN [employer] Work Phone: Start: 05-13-2023 Urine culture RUTH ANN [employer] Work Phone: Start: 05-07-2023 CT of facial bones with contrast RUTH ANN [employer] Work Phone: Start: 07-28-2022 Esophagogastroduodenoscopy RUTH ANN Deleon Work Phone: Start: 07-11-2015 H/O: section H/O section x 1 previa. Jude Aponte PA-C Work Phone: Start: 05-01-2008 childbirth 1 Wesly Taverastefany Comment on above: vag delivery Start: 01-28-2007 wisdom teeth extraction Jiaroliver Lopez Plan of Treatment Date Care Activity Detail Author Start: 10-22-2030 Urine microalbumin profile DTaP,Tdap,Td Vaccine (7 - Tdap) [facility] Start: 11-29-2023 Influenza vaccination Influenza Vaccine (Season Ended) [facility] Start: 10-03-2023 Streptococcus pyogenes Ag [Presence] in Unspecified specimen [facility] Start: 10-03-2023 Plain chest X-ray XR chest 2V* [facility] Start: 10-03-2023 XR Chest 2 Views [facility] Start: 05-13-2023 CT Facial bones W contrast IV [facility] Start: 05-13-2023 CT of facial bones with contrast CT facial bones w con [facility] Start: 05-13-2023 CT of head without contrast CT head/brain wo con [facility] Start: 05-13-2023 CT Unspecified body region WO contrast [facility] Start: 05-13-2023 Bacteria identified in Urine by Culture [facility] Start: 05-12-2023 Patient referral [facility] Work Phone: Start: 05-07-2023 CT Facial bones W contrast IV [facility] Start: 05-07-2023 CT of facial bones with contrast CT facial bones w con [facility] Start: 03-30-2023 Behavioral Health Screening Behavioral Health Screening [facility] Start: 11-28-2022 Covid-19 Vaccine () Covid-19 Vaccine () [facility] Start: 11-28-2022 Influenza vaccination Influenza Vaccine (#1) [facility] Start: 07-28-2022 [facility] Start: 2020 Screening for malignant neoplasm of cervix [facility] Start: 2011 Screening for malignant neoplasm of cervix [facility] Start: 2008 Hepatitis C screening Hepatitis C Screening [facility] Start: 2008 HIV screening HIV Screening [facility] Start: 02-19-2006 Hepatitis B Vaccine (3 of 3 - 3-dose series) Hepatitis B Vaccine (3 of 3 - 3-dose series) [facility] Start: 1996 Pneumococcal vaccination Pneumococcal Vaccine (1 of 2 - PCV) [facility] Patient Education [facility] Work Phone: Patient referral [facility] Work Phone: [place] Kidney - bilateral [facility] Immunizations Immunization Date Immunization Notes Care Provider Fa cility 03-01-2021 Do not use COVID-19 Pfizer 2 dose Juanito Easterwood Other [facility] 01-27-2021 influenza, injectable, quadrivalent, preservative free TOOLING SUPERVISOR Juanito Easterwood Work Phone: [facility] 01-27-2021 influenza, injectable, quadrivalent, contains preservative Juanito Easterwood Other [facility] Other 01-27-2021 influenza virus vaccine, unspecified formulation Melissa Dorsey NP Work Phone: [facility] 04-06-2020 Do not use COVID-19 Pfizer 2 dose Juanito Easterwood Other [facility] 03-19-2020 Do not use COVID-19 Pfizer 2 dose Juanito Easterwood Other [facility] 05-21-2010 influenza virus vaccine, split virus (incl. purified surface antigen) Juanito Easterwood Other [facility] Other 05-21-2010 influenza virus vaccine, unspecified formulation TOOLING SUPERVISOR Juanito Easterwood Work Phone: [facility] Payers Date Payer Category Payer Medicaid [id number] 2022 Medicaid [id number] 2. [id number] 2022 Medicaid [id number] 1990 Unknown [id number] 2.16.84 0.1.919968.3.579.2.593 1990 Unknown [id number] 2.16.84 0.1.702244.3.579.2.593 1990 Unknown [id number] 2.16.84 0.1.356039.3.579.2.593 1990 Unknown [id number] 2.16.84 0.1.152882.3.579.2.593 1990 Unknown [id number] 2.16.84 0.1.949797.3.579.2.593 1990 Unknown [id number] 2.16.84 0.1.778718.3.579.2.593 1990 Unknown [id number] 2.16.84 0.1.648616.3.579.2.593 1990 Unknown [id number] 2.16.84 0.1.669083.3.579.2.1259 1990 Unknown [id number] 2.16.84 0.1.457543.3.579.2.1259 1990 Unknown [id number] 2.16.8 40.1.788112.3.579.2.727 1990 Unknown [id number] 2.16.8 40.1.751450.3.579.2.727 1959 Self-pay 1959 Unknown [id number] Unknown [id number] 2.1 [id number] Unknown [id number] 2.16.8 40.1.490069.3.579.2.531 Unknown [id number] 2.16.8 40.1.617018.3.579.2.531 Unknown [id number] 2.16.8 40.1.844698.3.579.2.531 Unknown [id number] 2.16.8 40.1.488805.3.579.2.531 Unknown [id number] 2.16.8 40.1.695340.3.579.2.531 Unknown [id number] 2.16.8 40.1.924061.3.579.2.531 Unknown [id number] 2.16.8 40.1.125287.3.579.2.531 Unknown [id number] 2.16.8 40.1.646576.3.579.2.531 Social History Date Type Detail Facility Unknown if ever smoked [facility] Other Start: 07-23-2023 Sex Assigned At [facility] Start: 07-28-2022 End: 10-03-2023 Tobacco smoking status NDIS Ex-smoker (finding) [facility] Start: 1990 Sex Assigned At Female [facility] History of tobacco use Current smoker [facility] End: 03-06-2010 History of tobacco use Cigarette Smoker [facility] Start: 07-11-2015 End: 05-05-2023 Tobacco use and exposure Smokeless tobacco non-user [facility] Start: 1990 Sex Assigned At Not on file [facility] Start: 07-11-[address] [facility] Occasional tobacco smoker [facility] Start: 07-11-2015 Alcohol intake Current non-dr driver wheelchair of alcohol (finding) [facility] Start: 07-23-2023 History of Social function [facility] National Score (1-100), lower number is lower risk 44 [facility] Tobacco smoking status No Smoking Status Entered [facility] NEGATED: Highlighted row [facility] Medical Equipment Procedure Code Equipment Code Equipment Origin al Text Equipment Identifier Dates [place] 30G X 5 MM Start: 01-15-2023 Goals Date Patient Goal Desired Activity /State Functional Status Date Assessment Result Facility 10-23-2023 Functional Status N/A [facility] Clinical Notes 09-02-2021 to 10-24-2023 Note Date & Type Note Facility 10-24-2023 Hospital Discharg e instructions Patient Education 10/23/2023 23:26:38 Ankle Sprain, Bbgi-sg-Ncvx Ankle Sprain An ankle sprain is a [...] blue. Managing pain, stiffness, and swelling Take odpf-faq-sirflaj and prescription medicines only as told by [...] provider. Document Revised: 05/09/2021 Document Reviewed: 05/09/2021 [employer] Patient Education 2022 [employer]. Follow Up Care 10/23/2023 22:26:37 With:Call to schedule a follow-up appointment with your orthopedic surgeon for further management of care. Use the diflunisal as needed for pain. Do not use ibuprofen or naproxen with this as they are in the same family class. Return to the ED with any wors Address:Unknown When:10/26/2023 With[facility] Address: [address] [place] [phone] Business (1) When:Within 3 Day(s) [facility] 10-23-2023 Note ED Patient Education Note Orthopedics [...] Managing pain, stiffness, and swelling ? Take iovd-qda-lyspqoi and prescription medicines only as told by [...] provider. Document Revised: 05/09/2021 Document Reviewed: 05/09/2021 [employer]book Patient Education ? 2022 [employer]. [facility] 10-23-2023 Evaluation + Plan note Extrac jessica from: Title:ED Note Author:Alyx De La Vega PA-C te:10/23/23 Post-operative complication (T81.9XXA: Unspecified complication of procedure, initial encounter) Orders: ketorolac, 30 mg = 1 mL, Injection, IntraMuscular, Once, Stop date 10/23/23 23:21:00 EDT, STAT, Start date 10/23/23 23:21:00 EDT, 10/23/23 23:21:00 EDT XR Ankle 3+ Views Left XR Foot 3+ Views Left [facility] 05-02-2024 Telephone encounter Note* Telephone Encounter - Lupe Cole - 07/30/2023 10:43 AM EDT Pt called Asked for a work excuse for 07/22. She couldn't get a fax number for PSS. Sent her [employer] registration info (she could get the letter that way) and also mailed to [employer] address. Advised of 2 week delay [facility]05-02-2024 Miscellaneous Notes* Telephone Encounter - Courtney Coleher - 07/30/2023 10:43 AM EDT Pt called Asked for a work excuse for 07/22. She couldn't get a fax number for PSS. Sent her [employer] registration info (she could get the letter that way) and also mailed to [employer] address. Advised of 2 week delay documented [facility] NoteHNO ID: [id number] Author: JUDE APONTE PA-C Service: ? Author Type: Physician Combat Control Manager Type: Progress Notes Filed: 07/23/2023 12:10 Note [...] testing/treatment Medical Decision Making [facility]: [facility] of Present illness Narrative* Jude Aponte [...] Level: 3 - Low documented in [facility] History of Present illness Narrative* Melissa Dorsey, VAMSHI - 05/05/2023 10:10 AM EST HPI: Historian [...] 7.5 mL; Refill: 0 documented in this [facility]11-22-2023 Evaluation note* Encounter Date Diagnosis Assessment Notes Treatment Notes Treatment Clinical Notes Jan, Primary hypertension (ICD-10 - I10) [facility] Other 11-21-2023 Evaluation note* Encounter Date Diagnosis [...] Medication monitorin g encounter (ICD-10 - Z51.81) [facility] Other 09-14-2023 Evaluation note* Encounter Date Diagnosis Assessment Notes Treatment Notes Treatment Clinical Notes Nov, Strep pharyngitis (ICD-10 - J02.0) Strep testing did result as positive during drive up testing. Will prescribe antibiotic. Aware of what symptoms warrant immediate evaluation by emergency department. Take entire course of antibiotic, take with probiotic, please change your toothbrush and gargle with warm salt water as needed. Ocrh-sdw-tyawrua medications suggested. Written off work for 2 days. Nov, Acute cough (ICD-10 - R05.1) Due to her symptoms, patient would really like repeat COVID, influenza and strep testing. She does drive to the office for drive up testing. Patient to continue conservative measures and jxej-bzv-wqaxame medications for symptom relief of the cough. [...] visit was counseling done by myself, Juanito MURRAY-Angela. [facility] Other 09-07-2023 Evaluation note* Encounter Date Diagnosis [...] patient set personal goal using given handout. [facility] Other 08-28-2023 Evaluation note* Encounter Date Diagnosis [...] - G43.909) Oct, Snores (ICD-10 - R06.83) [facility] Other 08-28-2023 Evaluation note* Encounter Date Diagnosis Assessment Notes Treatment Notes Treatment Clinical Notes Oct, Primary hypertension (ICD-10 - I10) [facility] Other 06-19-2023 Evaluation note* Encounter Date Diagnosis Assessment Notes Treatment Notes Treatment Clinical Notes Aug, Anxiety (ICD-10 - F41.9) [facility] Other 05-15-2023 Evaluation note* Encounter Date Diagnosis [...] putting a referral into health services in [place]. No emergent evaluation by psychiatry is warranted [...] that were not corrected during review process. [facility] Other 05-01-2023 [facility]* Encounter Date Diagnosis Assessment Notes Treatment Notes Treatment Clinical Notes Jun, Primary hypertension (ICD-10 - I10) [facility] Other 04-17-2023 Evaluation note* Encounter Date Diagnosis [...] that were not corrected during review process. [facility] Other 03-27-2023 Evaluation note* Encounter Date Diagnosis [...] or refer her to weight management through [facility]. Patient verbalizes understanding May, Gastroesophageal reflux disease without esophagitis (ICD-10 - K21.9) Discussed with patient expectations in regards to EGD. I would like her to continue moving forward with the procedure. Much emotional and motivational support given today. I did encourage her to please refrain from takeout and restaurants with high fatty greasy meals such as [employer] as this is exacerbating her GI issues. [...] her to participate in group therapy, counseling, restorationist, exercise, hobby what ever she has personal [...] to reach out to Dr. Quispe in [place]. Patient verbalizes understanding. He is aware of symptoms would indicate underlying emergent pathology. May, Hospital discharge follow-up (ICD-10 - Z09) Hospital documentation, testing, images, discharge and medications reviewed in preparation for this visit. May, Other *Progress note was completed with the assistance of voice recognition software for dictation purposes. Please excuse any grammatical errors that were not corrected during review process. [facility] Other 03-23-2023 Evaluation note* Encounter Date Diagnosis Assessment Notes Treatment Notes Treatment Clinical Notes May, Epigastric pain (ICD-10 - R10.13) Continue Omeprazole for now Arrange for EGD May, RUQ abdominal pain (ICD-10 - R10.11) May, Duodenitis (ICD-10 - K29.80) May, Abnormal finding on imaging (ICD-10 - R93.89) [facility] Other 02-16-2023 Evaluation note* Encounter Date Diagnosis Assessment Notes Treatment Notes Treatment Clinical Notes Apr, Duodenitis (ICD-10 - K29.80) [facility] Other 02-02-2023 Evaluation note* Encounter Date Diagnosis [...] that were not corrected during review process. [facility] Other 01-06-2023 Evaluation note* Encounter Date Diagnosis Assessment Notes Treatment Notes Treatment Clinical Notes Mar, Obesity, morbid, BMI 40.0-49.9 (ICD-10 - E66.01) [facility] [employer] Other 01-05-2023 Evaluation note* Encounter Date Diagnosis Assessment Notes Treatment Notes Treatment Clinical Notes Mar, Obesity, morbid, BMI 40.0-49.9 (ICD-10 - E66.01) Emotional motivational support given today. I do concur, I do feel that working at [employer] will keep her active, reduce her [...] sent to due to the cost at [employer] in [place]. Mar, Low back pain, unspecified (ICD-10 - [...] if emergent symptoms present. Patient verbalizes understanding. [facility] Other 12-21-2022 Evaluation note* Encounter Date Diagnosis Assessment Notes Treatment Notes Treatment Clinical Notes Feb, Viral illness (ICD-10 - B34.9) Discussed likely she is suffering from viral illness, specifically RSV as her daughter is also RSV positive.Discussed conservative measures for symptom relief as well as zqbv-noh-vxqukgv medications for symptom relief. Does not warrant [...] emailed via fax machine to her email. [facility] Other 12-14-2022 Evaluation note* Encounter Date Diagnosis Assessment Notes Treatment Notes Treatment Clinical Notes Feb, HLD (hyperlipidemia) (ICD-10 - E78.5) Feb, Fatty liver (ICD-10 - K76.0) [facility] Other 11-21-2022 Evaluation note* Encounter Date Diagnosis Assessment Notes Treatment Notes Treatment Clinical Notes Jan, Depression, unspecified depression type (ICD-10 - F32.A) [facility] Other 11-01-2022 Evaluation note* Encounter Date Diagnosis [...] is agreeable to physical therapy order to [facility]. I do feel they can help her [...] agreeable to CT of the abdomen to [facility] however still would like to wait on the referral to gastroenterology. We will follow-up in office regarding the results. Jan, Other *Progress note was completed with the assistance of voice recognition software for dictation purposes. Please excuse any grammatical errors that were not corrected during review process. [facility] Other 10-24-2022 Evaluation note* Encounter Date Diagnosis Assessment Notes Treatment Notes Treatment Clinical Notes Dec, Uncontrolled hypertension (ICD-10 - I10) [facility] Other 10-20-2022 Evaluation note* Encounter Date Diagnosis Assessment Notes Treatment Notes Treatment Clinical Notes Dec, Uncontrolled hypertension (ICD-10 - I10) [facility] Other 08-23-2022 Evaluation note* Encounter Date Diagnosis Assessment Notes Treatment Notes Treatment Clinical Notes Oct, Low back pain, unspecified back pain laterality, unspecified chronicity, unspecified whether sciatica present (ICD-10 - M54.50) Oct, Uncontrolled hypertension (ICD-10 - I10) Oct, Primary hypertension (ICD-10 - I10) [facility] Other 08-02-2022 Evaluation note* Encounter Date Diagnosis Assessment Notes Treatment Notes Treatment Clinical Notes Oct, Depression, unspecified depression type (ICD-10 - F32.A) Oct, Anxiety (ICD-10 - F41.9) Oct, Low back pain, unspecified back pain laterality, unspecified chronicity, unspecified whether sciatica present (ICD-10 - M54.50) [facility] Other 07-18-2022 Evaluation note* Encounter Date Diagnosis [...] sleep. Is agreeable to counseling referral to [place] provider. Sep, Low back pain, unspecified back [...] that were not corrected during review process. [facility] Other 06-30-2022 Evaluation note* Encounter Date Diagnosis [...] her safety or the safety of others. [facility] Other 06-23-2022 Evaluation note* Encounter Date Diagnosis Assessment Notes Treatment Notes Treatment Clinical Notes Aug, Weight gain (ICD-10 - R63.5) Aug, Chronic fatigue (ICD-10 - R53.82) [facility] Other 06-21-2022 Evaluation note* Encounter Date Diagnosis [...] at the next visit. Needs to contact [facility] or look in her portal to see [...] Discussed short term 8 week course vs. fci management. Discussed pros and cons of taking [...] was counseling done by myself, Juanito RIVAS. [facility] Other 06-06-2022 Evaluation note* Encounter Date Diagnosis [...] time. 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 [employer] Other Evaluation noteNo InformationNortWell[facility] [employer] Other Evaluation noteNo assessment information available [facility] Work Phone: Evaluation note* Diagnosis Acute diffuse otitis externa of left ear- Primary documented in this [facility] Diagnosis Onset Date Resolution Status Mastoiditis acute Nausea acute Otitis externa acute [facility] Work Phone: Evaluation note* Diagnosis Onset Date Resolution Status Mastoiditis acute Nausea acute Otitis externa acute Chronic otitis media acute [facility] Work Phone: Evaluation note* Diagnosis Onset Date Resolution Status Mastoiditis acute Nausea acute Otitis externa acute Chronic otitis media acute Depression acute Vitamin D deficiency acute [facility] Work Phone: Evaluation note* Diagnosis H/O otitis media- Primary Personal history of other disorders of nervous system and sense organs H/O acute otitis externa Personal history of other disorders of nervous system and sense organs [facility] Diagnosis Onset Date Resolution Status Chronic otitis media acute Depression acute Vitamin D deficiency acute [facility] Work Phone: Evaluation note* Diagnosis Onset Date Resolution Status Depression acute Vitamin D deficiency acute Anxiety acute Chronic fatigue acute Vitamin D deficiency acute [facility] Work Phone: Evaluation note* Diagnosis Onset Date Resolution Status Anxiety acute Chronic fatigue acute Vitamin D deficiency acute Chronic fatigue acute HTN (hypertension) acute Prediabetes acute Uncontrolled hypertension ac [employer] [place] [employer] Amenorrhea noneactive [facility] Work Phone: Evaluation note* Diagnosis Onset Date Resolution Status Anxiety acute Chronic fatigue acute Vitamin D deficiency acute Chronic fatigue acute HTN (hypertension) acute Prediabetes acute Uncontrolled hypertension ac [employer] [place] [employer] Worsening headaches noneacti ve Hot flashes noneactive Amenorrhea noneactive [facility] Work Phone: Evaluation note* Diagnosis Onset Date Resolution Status Chronic fatigue acute HTN (hypertension) acute Prediabetes acute Uncontrolled hypertension ac [employer] [place] [employer] Worsening headaches noneacti ve Hot flashes noneactive Amenorrhea noneactive [facility] Work Phone: History and physical note Author Johann Moe [facility] July 28, 2022 2:29pm Note Date/Time July 28, 2022 2:29pm [facility] [address] [place] [address] Gastroenterology H&P Signed Patient: Lisandra Solis MR#: [id number] : 1990 Acct:[id number] Age/Sex: 32 / F Adm Date: 3 Loc: Room: Type: [facility] Attending Dr: Johann Moe MD Copies to: [...] <Electronically signed by Johann Moe MD> 07/28/221428 [facility] Work Phone: Hisrwsm general Narrative - Reported* Type Description Date Medical History Depression Medical History Chronic Migraines Medical History Hypertension Medical History Anxiety Surgical History Vaginal childbirth 2008 Surgical History Left knee surgery 2009 Surgical History Vaginal childbirth 2010 Surgical History Cholecystectomy 2012 Surgical History 2014 Surgical History uterine ablation 2021 Hospitalization History See Surgical [facility] Other History general Narrative - Reported* Type [...] uterine ablation 2021 Hospitalization History See Surgical [facility] Other History general Narrative - Reported* Type Description Date Medical History Depression Medical History Chronic Migraines Medical History Hypertension Medical History Anxiety Medical History Weight gain Medical History Chronic fatigue Medical History Uncontrolled daytime somnolence Medical History Fibromyalgia muscle pain Medical History Gastroesophageal reflux disease without esophagitis Medical History Fatty Liver- Abd US 09/2021 Surgical History Vaginal childbirth 2008 Surgical History Left knee surgery 2009 Surgical History Vaginal childbirth 2010 Surgical History Cholecystectomy 2012 Surgical History 2014 Surgical History uterine ablation 2021 Hospitalization History See Surgical Hx [facility] Other [employer] general Narrative - Reported* Type Description Date [...] uterine ablation 2021 Hospitalization History See Surgical [facility] Other hisgoBramble general Narrative - Reported* Type Description Date [...] uterine ablation 2021 Hospitalization History See Surgical [facility] Other [employer] general Narrative - Reported* Type Description Date [...] Uterine ablation 2021 Hospitalization History See Surgical Hx [facility] Other Hisnrlv general Narrative - Reported* Type Description Date [...] EGD 07/28/2022 Hospitalization History See Surgical Hx [facility] Other [employer] general Narrative - ReportedNort [employer] Other Hospital course Narrative No data available for this section [facility] Hospital Discharge instructions Additional Instructions DISCHARGE INSTRUCTIONS [...] NOT operate machinery such as power tools, lawn mowers, snow blowers, sewing machines, etc. for [...] problems. -Follow up with PCP. -Office number [phone].[facility] Work Phone: Hospital Discharge instructionsAmbulatory Orders* Referral to ENT Location: None Selected [facility] Work Phone: Hospital Discharge instructions Additional Instructions [...] other concern ENT's name and number was provided[facility] Work Phone: Hospital Discharge instructions Additional Instructions Your tests were fine here tonight. There is no evidence of a dangerous problem. We are happy to see you anytime if you have any further problems or concerns. Your blood pressure was a little high tonight. Please be sure that you are taking your medications as prescribed and follow up with your doctor.[facility] Work Phone: Hospital Discharge instructions No data available for this section [facility] Progress note No data available for this section [facility] reason for referral (narrative)* Reason Counseling in [facility] ue for anxiety NO PSYCHIATRY OR MED MANAGEMENT NEEDED Diagnosis 1 Anxiety (F41.9) Referral Organization [facility] [place] Referring Provider First Name Juanito Referring Provider Last Name [facility] Referring Provider Specialty Nurse Criselda myles Referred Provider Specialty Psychiatry Referral Priority Routine [facility] Other Revrtq for referral (narrative)* Reason *FU 08/18 Counseli [facility] [place] Diagnosis 1 Anxiety (F41.9) Referral Organization [facility] [place] Referring Provider First Name Juanito Referring Provider Last Name [facility] Referring Provider Specialty Nurse Criselda myles Ref[facility] Referred Address [address] [place], [place],[address] Referred Provider Specialty Psychiatry Referral Priority Routine General Notes Fore, Elinor M 023 03:15:45 PM >Received today and referral was fax. They will review and call patient to schedule [facility] Other reason for visit NarrativeBlood pressure f/u, Continued right upper quadrant pain, N/S sleep medicine, N/S counseling, Issues with Buspar, Tingling of hands, Low back painNort [employer] Other Reason for Referral Reason High probability for URBANO, send to [facility] Sleep Med please Diagnosis 1 Uncontrolled daytime somnolence (R40.0) Referral Organization [facility] [place] Referring Provider First Name Juanito Referring Provider Last Name [facility] Referring Provider Specialty Nurse Criselda myles Referred Provider Specialty Sleep Medici ne Referral Priority Routine Summary Purpose Family History No Family History Records Found Relationship Condition Age at Onset Recorded Date/T josiah Not Specified Diabetes mellitus Unknown Relationship Condition Age at Onset Recorded Date/T josiah Not Specified Diabetes mellitus Unknown grandparent Unknown Heart disease Unknown grandparent Malignant neoplasm Unknown Unknown grandparent Diabetes mellitus Unknown Relationship Condition Age at Onset Recorded Date/T josiah mother Diabetes mellitus Unknown grandparent Unknown Heart disease Unknown grandparent Malignant neoplasm Unknown Unknown grandparent Diabetes mellitus Unknown Advance Directives No Advanced [...] content) DATE CREATED AUTHOR 06/11/2022 [facility] DATE CREATED AUTHOR AUTHOR'S ORGANIZ ATION 07/31/2023 [facility] DATE CREATED AUTHOR AUTHOR'S ORGANIZ ATION 08/14/2023 [facility] DATE CREATED AUTHOR AUTHOR'S ORGANIZ ATION 11/04/2023 Rutledge Sulaiman [facility] DATE CREATED AUTHOR AUTHOR'S ORGANIZ ATION 11/09/2023 [place] Pen[place] [facility] DATE CREATED AUTHOR AUTHOR'S ORGANIZ ATION 02/23/2024 [facility] Care Teams (unrecognized sec tion [...] 2023 End: October 03, 2023 Jeet Tarango DO RES Active St art: October 03, 2023 End: October 03, 2023 Team Status: Inactive Member Role Status Dates Juanito Deleon APRN Primary Care Pr jason, Attending Provider Active Start: October 07, 2023 End: October 07, 2023 Team Status: Inactive Member Role Status Dates Juanito Deleon APRN Primary Care Pr ovider, Attending Provider Active Start: November 02, 2023 End: November 02, 2023 Team Status: Inactive Member Role Status Dates Juanito Deleon APRN Primary Care Pr ovider, Attending Provider Active Start: November 20, 2023 [...] May 07, 2023 End: May 08, 2023 Decal Maker Relationship Specialty Start Date End Date Unallocated, Noms Provider [address] [place] [address] PCP - General Family Medicine 05/05/23 Team [...] July 14, 2023 End: July 14, 2023 Decal Maker Relationship Specialty Start Date End Date Juanito Deleon CNP [address] [address] Referring Family Medicine 06/04/23 Decal Maker Relationship Specialty Start Date End Date Juanito Deleon CNP [address] [address] Referring Family Medicine 06/04/23 Team Status: Inactive Member Role Status Dates Juanito Deleon APRN Primary Care Pr ovider, Attending Provider Active Start: December 02, 2023 [...] or prosecute any alcohol or drug abuse patient.[facility] InstituteIn the event this information is protected by the Federal Confidentiality of Alcohol and Drug Abuse Patient Records regulations: The Federal rules restrict any use of the information to criminally investigate or prosecute any alcohol or drug abuse patient.[facility] FOR RECORDS PERTAINING TO PATIENTS WHO ARE [...] BE BASED ON THE PRIMARY CLINICAL RECORDS. [facility]. provides no warranty or guarantee of the accuracy or completeness of information in this document.
[2024-02-29 06:23] LABS: Glucometer 116 mg/dL (74-106)
[2024-02-29 06:30] LABS: HCG Qualitative NEGATIVE (NEGATIVE); Internal Control Within Normal Limits
[2024-02-29] MEDS: LACTATED RINGER'S SOLUTION 1,000 ML 50 ML IV (06:45)
[2024-02-29] MEDS: SCOPOLAMINE 1 MG/3 DAYS TRANSDERM PATCH 1 PATCH TD (07:13)
[2024-02-29] MEDS: CEFAZOLIN SODIUM 2 GM/50 ML D5W PREMIX IV (07:39)
--- NOTE | 2024-02-29 07:58 | P.ORON_ITS ---
Brief Operative Note Date of procedure: 02/29/24 Pre-op diagnosis general: Left peroneal tendinopathy, subluxation and retinacu lar tear, possible lateral ankle instability, retained/deep orthopedic hardware Post-op diagnosis: other (Left peroneal tendon tear with subluxation and retinacular tear, lateral ankle instability, retained/deep orthopedic hardware) Procedure: Procedure performed: Left peroneal tendon transfer with retinacular repair and groove deepening, modified Brostr?m Ramirez revision lateral ankle stabilization, removal of retained/deep orthopedic hardware, stress examination under intraoperative fluoroscopy and application of short leg splint Indications for procedure: Patient underwent left lateral ankle stabilization, peroneal tendon repair and ankle arthroscopy on 04/16/2023. At recent follow-up patient was noting worsening pain over the peroneal tendons which was exacerbated by activity with accompanied swelling and dysfunction. MRI was obtained which demonstrated superior peroneal retinacular tear with peroneal tendon subluxation and tear of the brevis. In addition there is postsurgical changes to the ATFL and CFL and apparent backing out of one of the soft tissue anchors at the anterior inferior aspect of the lateral malleolus. Due to her worsening pain and MRI findings I outlined the potential risks and benefits of surgical revision which the patient wished to proceed with. Intraoperative findings: Intraoperative stress examination revealed positive anterior drawer. Thickened scarred ATFL and CFL with laxity of the ATFL. Peroneal tendon synovitis with laxity of the superior peroneal retinaculum. Tear of the peroneal brevis and thickening of the longus. Peroneal groove was shallow therefore to prevent recurrent subluxation groove deepening was performed. 1 anchor had backed out a few millimeters therefore was removed. After ATFL had been repaired negative anterior drawer was noted on the table and the tendons were stable with range of motion examination. Procedure in detail: Patient was identified in preoperative holding by myself which time correct side and site were marked and consent was obtained. Patient was brought back to the operating theater placed on table in supine position with a thigh tourniquet. Preoperative antibiotics were started and the left lower extremity was prepped and draped in usual sterile fashion. Formal timeout was performed. Local anesthesia was administered over the lateral ankle using 10 cc of 1% lidocaine plain and 10 cc of 0.5% Marcaine plain. Left lower extremity was exsanguinated and tourniquet was inflated. Intraoperative stress examination under live fluoroscopy revealed a stable syndesmosis and stable varus stress. However, anterior drawer was positive indicating lateral ankle instability and laxity of the anterior talofibular ligament. Incision was placed over the distal aspect of the peroneal tendons and a combination of sharp and blunt dissection gained access to the superior peroneal retinaculum which was lax. The ankle was placed through range of motion and there was subluxation of the peroneal tendons. The superior peroneal retinaculum and tendon sheath were sharply incised and access was gained to the peroneal tendons. Surrounding synovitis was excised and the tendons were debrided of all scar and adhesions. Tear in the brevis was also excised which was passed the back table and sent as specimen. Once all nonviable and questionable tendon was removed the a peroneal tendon brevis to longus transfer was performed with absorbable suture. The peroneal tendons were then relocated into the fibular groove which was somewhat shallow therefore a bur was used to deepen the groove thereby providing additional stability of the tendons. The tendon sheath was then repaired with absorbable suture. Surgical site was irrigated with copious saline Then a combination of sharp and blunt dissection while extending the incision distally towards the sinus tarsi was performed gaining access to the ATFL. The ATFL was thickened and scarred and was incised releasing its proximal attachment from the distal fibula. The anchor that had loosened and backed out was identified and removed with a rongeur. Then a rongeur was used to to create a trough at its anterior inferior aspect. 2 drill holes were placed into the distal anterior aspect of the lateral malleolus. Then 3.3 mm suture anchors were placed accordingly. Then the ankle was held in maximum dorsiflexion and eversion while the ATFL was reattached and repaired to the distal fibula by bringing the sutures through the midportion of the ATFL then back to the periost eum on the distal fibula. The sutures were then tied and half were cut. Then the remaining 4 sutures were then used to repair the peroneal tendon retinaculum. The sutures were tied and cut appropriately. The ankle was placed to range of motion and the peroneal tendons were stable and glided appropriately. Anterior drawer was performed and was notably stable. Surgical site was irrigated with copious saline and the incision was then closed in layers. Tourniquet was deflated with a prompt hyperemic response. Then a dry sterile dressing and a well-padded posterior splint was applied. Patient tolerated the procedure and anesthesia was transported to the recovery room with vital signs stable and brisk capillary refill to left toes. Postoperative plan: Discharge home under boyfriend's care Nonweightbearing left lower extremity Keep splint clean dry and intact Elevate operative extremity above the level of the heart Prescriptions were sent to her pharmacy using my office EMR Follow-up in 1 week Implants: Medline 3.3 mm suture anchors x2 Anesthesia: General-LMA Surgeon: Mark Mayorga Estimated blood loss (mL): 10 Pathology: other (Peroneal tendon) Condition: stable Disposition: PACU
[2024-02-29] MEDS: BUPIVACAINE HCL 0.5% PF 50 MG/10 ML VIAL INJ (08:10)
[2024-02-29] MEDS: LIDOCAINE HCL 1% 100 MG/10 ML MDV INJ (08:10)
[2024-02-29] MEDS: HYDROMORPHONE HCL 0.5 MG/0.5 ML SYRINGE IV ×2 (09:54→10:11)
[2024-02-29 10:01] LABS: Glucometer 129 mg/dL (74-106)
[2024-02-29] MEDS: OXYCODONE HCL 5 MG TABLET 10 MG PO (10:11)
[2024-02-29] MEDS: ACETAMINOPHEN 500 MG TABLET 1000 MG PO (12:31)
[2024-02-29] MEDS: OXYCODONE HCL 5 MG TABLET PO (12:31)
== END 2024-02-29 13:20 | disposition home or self-care (01) ==
PROVIDERS: Anesthesiology; PCP Nurse Practitioner Family; Visit Provider Podiatrist Foot & Ankle Surgery
PROC: (CPT 01470; principal; 2024-02-29 07:30)
DX: S86.312S Strain of muscle(s) and tendon(s) of peroneal muscle group at lower leg level, left leg, sequela (principal); M25.372 Other instability, left ankle; Z87.891 Personal history of nicotine dependence; E66.01 Morbid (severe) obesity due to excess calories; Z68.42 Body mass index [BMI] 45.0-49.9, adult; Z96.9 Presence of functional implant, unspecified; Z90.49 Acquired absence of other specified parts of digestive tract; I10 Essential (primary) hypertension; Z87.442 Personal history of urinary calculi; S93.30 Unspecified subluxation and dislocation of foot
CPT/HCPCS: 01470; 20680; 27691; 27698; 36415; 76000; 82948; 84703; 88304; C1713; J0665; J0690; J1100; J1171; J1885; J2250; J2371; J2405; J2704; J2710; J3010

== ENCOUNTER 2024-05-17 11:05 | Outpatient (OUT) | payer MEDICAID, SELFPAY ==
--- NOTE | 2024-05-17 11:05 | CONS_ITS ---
PAIN MANAGEMENT CONSULTATION ? CONSULTATION DATE: ??05/17/2024 ? TO:? Tea Donovan, [employer] ? CHIEF COMPLAINT:? Includes severe right sided neck pain. ? HISTORY OF PRESENT ILLNESS:? Review of systems, past medical/surgical history were obtained and documented on the health questionnaire and is available upon request. ? She is a 34-year-old female, reports that she woke up with the pain in the right side of her neck approximately two months ago.? Pain had progressed gradually to its present state, which she now describes at least 7-8/10 pain, sharp in character, in the right side of her neck, increased with activities such as lifting maneuvers, pushing/pulling maneuvers, cervical extension.? She has denied any change in bowel and bladder habits or new sensorimotor changes in the upper extremities.? Her pain was so severe, it prompted her to go undergo a cervical CT scan, which revealed the patient having a mild spondylosis from approximately C5-C7.? No significant neural foraminal or central canal stenosis or compromise was noted.? She has had, since that time, for the last two months, been using ibuprofen 800 mg at a time, with varying degrees of relief, as well as Flexeril.? She has undergone activity modification and, despite this, her pain has been progressive to the point it altered her quality of life, level of functioning and her sleep pattern. ? Her STAN on today?s visit was 6%. ? EXAMINATION:? Notable for patient having no clinical signs consistent with myelopathy involving her upper extremities.? Patient did have severe pain with cervical facet joint loading maneuvers on the right side from what appears to be approximately C3-4 or C4-5, with associated myofascial spasm of the cervical paravertebral muscles on the right side as well.? ? RECOMMENDATIONS:? I placed a neelima over her most tender point when performing cervical extension with right lateral flexion.? This area was marked off, and we will send the patient to Radiology to have a skin marker placed to undergo cervical spine films, PA and lateral views.? In addition too, I have asked her to continue with her Flexeril 10 mg at h.s. and to proceed with diagnostic right sided two level facet joint medial branch block.? Levels will be determined after reviewing the cervical imaging study and evaluation with the skin marker to be placed over.? I have gone over the details of the diagnostic procedure with the patient.? All her questions answered.? She agrees to proceed with the outlined plan. ? As part of providing excellent, safe, comprehensive care, the following was completed at our patient's visit: ? 1. A medication reconciliation and review to ensure accurate knowledge of current/active medications, including asking our patients to inform us about any onzk-pul-djxfwsr medications or herbal remedies/nutritional supplements/alternative remedies. ? 2. A review to specifically ensure our patients have had annual screening for: elevated body mass index (BMI, see intake chart for exact total), tobacco use, screening for depression, and screening for unhealthy alcohol use.? When screening is concerning, patients are provided with education and the specific recommendation to discuss the concerning health issue and treatment options with their primary care provider. YEHUDA
--- NOTE | 2024-05-17 13:05 | XR_ITS ---
[address] [address] Patient Name: JOLENE VALENTINO MRN: [id number] date: 1990 Sex: F Assigned Patient Location: PM Current Patient Location: Accession/Order Number: [id number] Exam Date: 05/17/2024 15:45 Report Date: 05/17/2024 15:51 At the request of: JADYN BENITO MD Procedure: XR cervical spine 5V CERVICAL SPINE - 5 views: CLINICAL HISTORY: Right-sided neck pain for 2 months COMPARISON: CT 06/06/2022 TECHNIQUE: AP, lateral, both oblique and odontoid views were obtained. FINDINGS: There is straightening of the normal cervical lordosis. There is no evidence of compression fracture or displacement. There is mild disc space narrowing at C4-5 and to lesser extent C5-6. There is minimal endplate spurring. The neuroforamen are patent. The atlantoaxial relationship is maintained. There is no prevertebral soft tissue swelling. A BB marker is present at the posterior right aspect of the neck XR/XR cervical spine 5V IMPRESSION: STRAIGHTENING OF THE NORMAL CERVICAL CURVATURE. MINIMAL DEGENERATIVE CHANGE. Impression dictated by: Radha Crook M.D.05/17/2024 3:51 PM Dictation Location: [place] [address] Electronically authenticated by: [id number] Date: 05/17/2024 15:51
== END 2024-05-17 11:06 | disposition home or self-care (01) ==
LOC: PM 11:06
PROVIDERS: PCP Nurse Practitioner Family; Visit Provider Anesthesiology Pain Medicine
DX: M54.2 Cervicalgia (principal)
CPT/HCPCS: 72050; G0463

== ENCOUNTER 2024-06-27 08:06 | Day surgery (SDC) | payer MEDICAID, SELFPAY ==
[2024-06-27 08:32] LABS: HCG Qualitative NEGATIVE (NEGATIVE); Internal Control Within Normal Limits
[2024-06-27 08:55] VITALS: BP 135/95; PULSE 80; TEMP 36.3; O2SAT 98
[2024-06-27 09:31] VITALS: BP 143/103; BP 147/96; PULSE 69; PULSE 72; O2SAT 100
[2024-06-27] MEDS: BUPIVACAINE HCL 0.25% PF 25 MG/10 ML VIAL 3 ML INJ (09:32)
[2024-06-27] MEDS: LIDOCAINE HCL 2% 400 MG/20 ML MDV INJ (09:32)
--- NOTE | 2024-06-27 09:33 | W.PM.PROCNOT ---
Date of procedure: 06/27/24 Pre-op diagnosis: Pain due to cervical spondylosis without myelopathy Post-op diagnosis: same as pre-op Procedure: Procedure: Right C3-4, 4-5 medial branch block Medications: Bupivacaine 0.25% 3cc The patient was seen and examined in the preoperative holding area.? The informed consent was obtained and placed on the chart.? The patient was brought to the medical procedure unit and placed in the prone position.? A timeout was completed verifying correct patient, procedure site, positioning, plan, and special equipment.? Using aseptic technique, the needle is placed at right C3. Under direct fluoroscopic visualization, a Quincke tip needle was advanced to the midpoint of the waist of the articular pillar at the respective medial branch segment. The above-mentioned injectate was placed in a 1 mL aliquot proceeded by negative aspiration.? The needle was removed.? The procedure was completed at right C4, 5. Insertion site was covered.? Patient was taken to the postprocedural recovery area and monitored for an appropriate length of time before found suitable for discharge in the accompaniment of a responsible adult. Anesthesia: Local Surgeon: Cira Le Pathology: none sent Condition: stable Disposition: no change
== END 2024-06-27 09:37 | disposition home or self-care (01) ==
LOC: SURGOUT 08:08
PROVIDERS: PCP Nurse Practitioner Family; Visit Provider Anesthesiology
DX: M47.812 Spondylosis without myelopathy or radiculopathy, cervical region (principal); M54.2 Cervicalgia
CPT/HCPCS: 36415; 64490; 64491; 84703; J0665

== ENCOUNTER 2024-07-21 10:24 | Outpatient (OUT) | payer MEDICAID, SELFPAY ==
--- NOTE | 2024-07-21 10:35 | PM.CN ---
Consult Note: HPI Data of Consult Patient: known to practice within the last 3 years Requesting Physician: Ivory Sharma NP Primary Care Provider: Tea Donovan NP Consult Narrative Reason for consult: neck pain Narrative: Lisandra Solis a pleasant 34 year old female presents for evaluation of chronic neck pain presenting around 04/23 without incident. Pt did not attend PT due to pain and personal schedule. Prior cervical xray and CT scan consistent with spondylosis and mild DDD. Pt continues to have moderate to severe neck pain and numbness tingling pain to RUE. Pain today 1/10 aching, increasing to 8/10 with housework, twisting her neck, looking down. Pain improved with sitting, lying, and icy hot. utilizes ibuprofen, flexeril, and tylenol with mild relief without side effects. cc:: CC: Ivory Sharma NP Review of Systems ROS Status of ROS 10 or more systems reviewed and unremarkable except as noted in history and below Musculoskeletal Reports: neck pain and extremity pain PFSH PFSH Medical History (Updated 07/21/24 @ 10:49 by Ivory Sharma NP) Presence of functional implant ?Z96.9 - Presence of functional implant, unspecified (ICD-10) Subluxation of left foot ?S93.302A - Unspecified subluxation of left foot, initial encounter (ICD-10) Strain of muscle(s) and tendon(s) of peroneal muscle group at lower leg level, left leg, initial encounter ?S86.312A - Strain of muscle(s) and tendon(s) of peroneal muscle group at lower leg level, left leg, initial encounter (ICD-10) PTSD (post-traumatic stress disorder) ?F43.10 - Post-traumatic stress disorder, unspecified (ICD-10) Panic attacks ?F41.0 - Panic disorder [episodic paroxysmal anxiety] (ICD-10) Peroneal tendinitis ?M76.70 - Peroneal tendinitis, unspecified leg (ICD-10) Strain of left peroneal muscle or tendon ?S86.312A - Strain of muscle(s) and tendon(s) of peroneal muscle group at lower leg level, left leg, initial encounter (ICD-10) Left ankle instability ?M25.372 - Other instability, left ankle (ICD-10) Heartburn ?R12 - Heartburn (ICD-10) Migraine ?G43.909 - Migraine, unspecified, not intractable, without status migrainosus (ICD-10) Anxiety ?F41.9 - Anxiety disorder, unspecified (ICD-10) Depression ?F32.A - Depression, unspecified (ICD-10) PONV (postoperative nausea and vomiting) ?R11.2 - Nausea with vomiting, unspecified (ICD-10) ?Z98.890 - Other specified postprocedural states (ICD-10) Menorrhagia ?N92.0 - Excessive and frequent menstruation with regular cycle (ICD-10) Dysmenorrhea ?N94.6 - Dysmenorrhea, unspecified (ICD-10) Abnormal uterine bleeding (AUB) ?N93.9 - Abnormal uterine and vaginal bleeding, unspecified (ICD-10) GERD (gastroesophageal reflux disease) ?K21.9 - Gastro-esophageal reflux disease without esophagitis (ICD-10) Fibromyalgia ?M79.7 - Fibromyalgia (ICD-10) Kidney stones (~2012) ?N20.0 - Calculus of kidney (ICD-10) Anemia (~2014) ?D64.9 - Anemia, unspecified (ICD-10) Leg pain ?M79.606 - Pain in leg, unspecified (ICD-10) Pain, dental ?K08.89 - Other specified disorders of teeth and supporting structures (ICD-10) Flank pain ?R10.9 - Unspecified abdominal pain (ICD-10) Headache ?R51.9 - Headache, unspecified (ICD-10) Plantar fasciitis ?M72.2 - Plantar fascial fibromatosis (ICD-10) Equinus contracture of ankle ?M24.573 - Contracture, unspecified ankle (ICD-10) Foot pain ?M79.673 - Pain in unspecified foot (ICD-10) Posterior tibial tendon dysfunction (PTTD) of right lower extremity ?M76.821 - Posterior tibial tendinitis, right leg (ICD-10) Hypertension ?I10 - Essential (primary) hypertension (ICD-10) Superficial laceration of thumb (10/22/20) ?S61.019A - Laceration without foreign body of unspecified thumb without damage to nail, initial encounter (ICD-10) Surgical History History of ankle surgery (04/16/23) ?Z98.890 - Other specified postprocedural states (ICD-10) H/O arthroscopy of knee ?Z98.890 - Other specified postprocedural states (ICD-10) H/O section (~2014) ?Z98.891 - History of uterine scar from previous surgery (ICD-10) History of cholecystectomy (~2012) ?Z90.49 - Acquired absence of other specified parts of digestive tract (ICD-10) H/O tubal ligation ?Z98.51 - Tubal ligation status (ICD-10) H/O foot surgery (12/22/19) ?Z98.890 - Other specified postprocedural states (ICD-10) History of endometrial ablation (01/04/21) ?Z98.890 - Other specified postprocedural states (ICD-10) Family History Other Family history of cancer Family history of diabetes mellitus Family history of hypertension Family history of stroke Social History Within the past year, how often did you have a drink containing alcohol: monthly or less Smoking status: Former smoker Non-prescribed substance use: denies use 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 Highest level of school completed/degree received: high school graduate Meds Home Medications and Allergies Home Medications ?Medication ?Instructions ?Recorded ?Confirmed ?Type lisinopril 20 2 tab PO DAILY 04/07/23 06/27/24 History mg-hydrochlorothiazide 12.5 mg tablet cyclobenzaprine 10 mg tablet mg 05/17/24 History amlodipine 10 mg tablet 10 mg PO DAILY 05/19/24 06/27/24 History escitalopram oxalate 10 mg tablet 10 mg PO DAILY 05/19/24 06/27/24 History (Lexapro) lamotrigine 25 mg tablet (Lamictal) 50 mg PO DAILY 05/19/24 06/27/24 History prazosin 2 mg capsule 2 mg PO DAILY 05/19/24 06/27/24 History phentermine 37.5 mg capsule 37.5 mg PO DAILY 06/27/24 06/27/24 History cyclobenzaprine 10 mg tablet 10 mg PO HS PRN muscle spasm #30 07/11/24 Rx tabs Allergies Allergy/AdvReac Type Severity Reaction Status Date / Time hydrocodone (From Vicodin) Allergy Severe Hives Verified 06/27/24 09:00 Exam Constitutional Documenting provider has reviewed patient's vital signs: yes Common normals: no apparent distress, oriented x3, healthy appearing, alert and well nourished General appearance: cooperative HENMT Common normals: normocephalic, hearing grossly normal bilaterally and moist oral mucous membranes Head and scalp: normocephalic Eye Common normals: PERRL Pupil: PERRL Neck & C-Spine Common normals: full ROM General: normal visual inspection Cervical spine: cervical ROM abnormal, pain with cervical ROM and cervical spine tenderness Other: positive spurlings decreased sensation to left C5,6,7 strength 5/5 in BUE positive axial facet loading, increased tenderness over C3-6 facets Chest Common normals: inspection of chest normal Respiratory Common normals: normal respiratory effort, no retractions and no use of accessory muscles Neuro Common normals: oriented x3 Sensorium/orientation: alert Psych Common normals: mental status grossly normal, thought process normal, cooperative, affect normal, speech normal and activity/motor behavior normal Speech: normal speech Thought process: normal thought process Results Additional Findings Additional findings: If on a controlled substance or opioids, I have checked an [place] report on this patient and there are no aberrancies noted in the prescribing history.??If on a controlled substance or opioid a drug screen was completed and reviewed within the last year, and if there has not been a drug screen completed we ordered one today to monitor higher risk, state monitored pain medication use. As part of providing excellent, safe, comprehensive care, the following was completed at our patient's visit: 1. A medication reconciliation and review to ensure accurate knowledge of current/active medications, including asking our patients to inform us about any byyc-vrk-lcqiwbr medications or herbal remedies/nutritional supplements/alternative remedies. 2. A review to specifically ensure our patients have had annual screening for screening for depression, screening for tobacco use, and screening for unhealthy alcohol use. For concerning screenings had a discussion with the patient, provided patient education, and recommended follow-up with primary care provider when appropriate. If patient noted with a risk of falling, they received education on strength, gait, and balance training to prevent future risk of falling. Portions of this note may have been carried over from the previous visit and updated as appropriate. Please note this office utilizes paper charting in addition to the electronic medical record. A list of current medications, vitals, and PMH is available there as the clinical staff outside of myself do not have access to [employer] charting during the clinic day operations. As part of providing quality comprehensive care the current medications, vitals, and PMH were reviewed in the paper chart. Assessment and Plan Assessment and Plan (1) Degenerative disc disease, cervical: (2) Cervical radiculopathy: (3) Cervical spondylosis: Plan 34 year old female with persistent moderate to severe neck pain secondary to cervical DDD and cervical spondylosis unresponsive to heat, ice, tylenol, and NSAIDs. pt recently underwent right C3/4 C4/5 MBB with 50% improvement, cancel MBB #2 working towards RFA at this time. proceed with cervical MRI without contrast to assess cervical stenosis and cervical radiculopathy in consideration of interventional therapy vs NS consultation. f/u to review cervical MRI
== END 2024-07-21 10:25 | disposition home or self-care (01) ==
PROVIDERS: PCP Nurse Practitioner Family; Visit Provider Nurse Practitioner
DX: M50.30 Other cervical disc degeneration, unspecified cervical region (principal); M54.12 Radiculopathy, cervical region; M47.812 Spondylosis without myelopathy or radiculopathy, cervical region
CPT/HCPCS: G0463

== ENCOUNTER 2025-02-04 21:33 | Emergency (ER) | payer MEDICAID, SELFPAY ==
--- OUTSIDE RECORDS SUMMARY | 2023-10-21 05:00 | XMS_ITS ---
Author Organization The [facility] in [place] Address [address] [place] [address] Care Team Providers Care Health Data Administrator Name Role Phone Dillon Lentz DO Primary Care Provider Unavail Mark Mckeon Unavailable [phone] REASON FOR VISIT 3 month f/u Encounters Encounter Location Date Provider Diagnosis [facility] (PODIATRY) [address] [place] [address] [address] [place] [address] 10/21/2023 Mark Mayorga Plan Of Treatment No Information Progress Notes * Lisandra SOLIS LDOB: 0 (34 yo F)Acc No.[id number]:10/21/2023 UNLOCKED PROGRESS NOTE Follow Up Patient: Eliecer LYNCHathzuleyma Mehta :?Mark Mayorga DPM, MSDOB:1990???Age: 33 Y???Sex:FemaleDate:4Phone:[phone]:[address] [place] [address], [place], [place]-[id number]:Dillon Lentz DO Subjective: * Chief Complaints: * 1 . 3 month f/u. * Medical History: Objective: * Vitals: Assessment: Plan: * Treatment: * * Electronic signature of Mark Mayorga DPM on 02/04/2025 at 09:41 PM ESTSign off status: PendingVisit Status:?N/S N/C (No Show/No Charge) * Provider: Trino Mayorga DPM, MS Date: 0 10/21/2023 Generated for Printing/Faxing/eTransmitting on:?02/04/2025 09:41 PM EST
--- OUTSIDE RECORDS SUMMARY | 2024-02-10 04:30 | XMS_ITS ---
Author Organization The [facility] in [place] Address [address] [place] [address] Care Team Providers Care Welt Treater Name Role Phone Dillon Lentz DO Primary Care Provider Unavail Mark Mckeon [phone] REASON FOR VISIT MRI review LT Encounters Encounter Location Date Provider Diagnosis [facility] (PODIATRY) [address] [place] [address] [address], [place] [address] 02/10/2024 Mark Mayorga Plan Of Treatment No Information Progress Notes * Lisandra SOLIS LDOB: 0 (34 yo F)Acc No.[id number]:02/10/2024 UNLOCKED PROGRESS NOTE Follow Up Patient: Eliecer LYNCHathzuleyma Mehta :?Mark Mayorga DPM, MSDOB:1990???Age: 33 Y???Sex:FemaleDate:02/10/2024hone:[phone]:[address] [place], [place] [id number]:Dlilon Lentz DO Subjective: * Chief Complaints: * 1 . MRI review LT. * Medical History: Objective: * Vitals: Assessment: Plan: * Treatment: * * Electronic signature of Mark Mayorga DPM on 02/04/2025 at 09:40 PM ESTSign off status: PendingVisit Status:?CANC (Cancelled) * Provider: Trino Mayorga DPM, MS Date: 04/11/2023 Generated for Printing/Faxing/eTransmitting on:?02/04/2025 09:40 PM EST
--- OUTSIDE RECORDS SUMMARY | 2024-02-29 03:00 | XMS_ITS ---
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 Name Role Phone Dillon Lentz DO Primary Care Provider Unavail Mark Mckeon Unavailable [phone] REASON FOR VISIT LT peroneal tendon debridement Encounters Encounter Location Date Provider Diagnosis [facility] [address] [place] [address] 02/29/2024 Mark Mayorga Plan Of Treatment No Information Progress Notes * Lisandra SOLIS LDOB: 0 (34 yo F)Acc No.[id number]:02/29/2024 UNLOCKED PROGRESS NOTE Patient:?CHICHO Lisandra Mehta :?Mark Mayorga DPM, MSDOB:1990???Age: 33 Y???Sex:FemaleDate:02/29/2024hone:[phone]:[address] [place], [place]Pcp:Michelle Frias Out:12:52 PM EST * * Electronic signature of Mark Mayorga DPM on 02/04/2025 at 09:42 PM ESTSign off status: PendingVisit Status:?CHK (Check Out) * Provider: Trino Mayorga DPM, MS Date: 1 05/01/2023 Generated for Printing/Faxing/eTransmitting on:?02/04/2025 09:42 PM EST
--- OUTSIDE RECORDS SUMMARY | 2024-05-26 05:45 | XMS_ITS ---
Author Organization [facility] Servic es Address [address] [place] [address] Care Team Providers Care Interior Design Director Name Role Phone Emily Schmitt Primary Care Provider [phone] JUANITO DELEON Unavailable Unavailable REASON FOR VISIT 1 month f/u Encounters Encounter Location Date Provider Diagnosis [place] [place] [address] 05/26/2024 Emily Schmitt Plan Of Treatment No Information Progress Notes * JOLENE VALENTINO LDOB: 0 (34 yo F)Acc No.[id number]:05/26/2024 Behavioral Health Patient: JOLENE LYNCH Provider:?RAYNA KINGHNP-BCDOB:1990 ???Age:34 Y???Sex:FemaleDate:05/26/2024Phone:[phone]:[address], [place], [id number] Subjective: * Chief Complaints: * 1 month f/u Billing Information: * Procedure Codes: * Electronic signature of JOSE King BC on 02/04/2025 at 09:41 PM EST Sign off status: Pending * Appointment Provider: RAYNA DONISHNP-BC Date: 0 05/26/2024 Generated for Printing/Faxing/eTransmitting on:?02/04/2025 09:41 PM EST
--- OUTSIDE RECORDS SUMMARY | 2024-06-23 09:15 | XMS_ITS ---
Author Organization [facility] Servic es Address [address] [place] [address] Care Team Providers Care In Home Aide Name Role Phone Emily Schmitt Primary Care Provider [phone] JUANITO CAES Unavailable Unavailable REASON FOR VISIT F/U Medications Medication SIG (Take, Route, Frequency, Duration) Notes Start Date End Date Status Naproxen 500 MG Tablet Oral; Duration: 7 Days ActivePhentermine HCl 37.5 MG TabletTAKE 1 TABLET BY MOUTH DAILY on empty stomach Oral; Duration: 30 DaysActiveIbuprofen 800 MG TabletTAKE 1 TABLET BY MOUTH WITH FOOD OR MILK EVERY 8 HOURS NEEDED FOR PAIN Oral; Duration: 30 Days ActiveLaMICtal 25 MG Tablet2 tablets Orally daily; Duration: 30 days04/12/2024 ActiveEscitalopram Oxalate 10 MG Tablet1 tablet Oral Once a day; Duration: 30 daysActiveCyclobenzaprine HCl 10 MG TabletTAKE 1 TABLET BY MOUTH AT BEDTIME Oral; Duration: 30 DaysActiveamLODIPine Besylate 10 MG Tablet1 tablet Oral Once a day; Duration: 90 daysActive Encounters Encounter Location Date Provider Diagnosis [place] [place] [address] 06/23/2024 Emily Schmitt Plan Of Treatment No Information Progress Notes * JOLENE VALENTINO LDOB: 0 (34 yo F)Acc No.[id number]:06/23/2024 Behavioral Health Patient: JOLENE LYNCH Provider:?JOSE KING-BCDOB:1990 ???Age:34 Y???Sex:FemaleDate:06/23/2024Phone:[phone]:[address] [place] [address] [address], [address] [place], [id number] Subjective: * Chief Complaints: * B H F/U * Medications: T akingamLODIPine Besylate 10 MG Tablet 1 tablet Oral Once a day Cyclobenzaprine HCl 10 MG Tablet TAKE 1 TABLET BY MOUTH AT BEDTIME Oral Naproxen 500 MG Tablet Oral Ibuprofen 800 MG Tablet TAKE 1 TABLET BY MOUTH WITH FOOD OR MILK EVERY 8 HOURS NEEDED FOR PAIN Oral Phentermine HCl 37.5 MG Tablet TAKE 1 TABLET BY MOUTH DAILY on empty stomach Oral Escitalopram Oxalate 10 MG Tablet 1 tablet Oral Once a day LaMICtal 25 MG Tablet 2 tablets Orally daily Taking amLODIPine Besylate 10 MG Tablet 1 tablet Oral Once a day Taking Cyclobenzaprine HCl 10 MG Tablet TAKE 1 TABLET BY MOUTH AT BEDTIME Oral Taking Naproxen 500 MG Tablet Oral Taking Ibuprofen 800 MG Tablet TAKE 1 TABLET BY MOUTH WITH FOOD OR MILK EVERY 8 HOURS NEEDED FOR PAIN Oral Taking Phentermine HCl 37.5 MG Tablet TAKE 1 TABLET BY MOUTH DAILY on empty stomach Oral Taking Escitalopram Oxalate 10 MG Tablet 1 tablet Oral Once a day Taking LaMICtal 25 MG Tablet 2 tablets Orally daily Billing Information: * Procedure Codes: * Electronic signature of JOSE King on 02/04/2025 at 09:41 PM EST Sign off status: Pending * Appointment Provider: KALEB DONSI Date: 0 06/23/2024 Generated for Printing/Faxing/eTransmitting on:?02/04/2025 09:41 PM EST
--- OUTSIDE RECORDS SUMMARY | 2024-08-10 11:15 | XMS_ITS ---
Author Organization [facility] Servic es Address [address] [place] [address] Care Team Providers Care Flaker Operator Name Role Phone AlirioEmily ricci Primary Care Provider [phone] JUANITO DELEON Unavailable Unavailable Alisa Dunham Unavailable [phone] REASON FOR VISIT EST CARE NEEDS PHYSICAL Encounters Encounter Location Date Provider Diagnosis [place] [place] [address] 08/10/2024 Alisa Dunham Plan Of Treatment No Information Progress Notes * GRUPO VALENTINOA LDOB: 0 (34 yo F)Acc No.[id number]:08/10/2024 Progress Notes Patient: JOLENE LYNCH :?Alisa CollazonDOB:1990???Age:34 Y???Sex:Female Date:08/10/2024Phone:[phone]:[address], [id number]:Emily Amezquitaingramses Subjective: * Chief Complaints: * E ST CARE NEEDS PHYSICAL Billing Information: * Procedure Codes: * Electronic signature of Alisa Dunham NP on 02/04/2025 at 09:41 PM ESTSign off status: Pending * Provider: Reuben Dunham Date: 0 08/10/2024 Generated for Printing/Faxing/eTransmitting on:?02/04/2025 09:41 PM EST
--- OUTSIDE RECORDS SUMMARY | 2024-08-29 08:00 | XMS_ITS ---
Author Organization [facility] Servic es Address [address] [place] [address] Care Team Providers Care Party Plan Salesperson Name Role Phone AlirioEmily ricci Primary Care Provider JUANITO DELEON Unavailable Unavailable Rich Cano [phone] REASON FOR VISIT UPDATED EXAM Encounters Encounter Location Date Provider [address] [place] [address] 08/29/2024 Rich Cano Plan Of Treatment No Information Progress Notes * JOLENE VALENTINO LDOB: 0 (34 yo F)Acc No.[id number]:08/29/2024 Patient:?JORJE VALENTINORENATA Mehta :?Rich Cano DDSDOB:1990???Age:34 Y ???Sex:FemaleDate:08/29/2024Phone:[phone]:[address] [facility] [address] [address] [place], [id number]:Emily Schmitt Subjective: * Chief Complaints: * U PDATED EXAM Billing Information: * Procedure Codes: * Electronic signature of Rich Cano DDS on 02/04/2025 at 09:41 PM ESTSign off status: Pending * Provider: Cameron Cano DDS Date: 0 08/29/2024 Generated for Printing/Faxing/eTransmitting on:?02/04/2025 09:41 PM EST
--- OUTSIDE RECORDS SUMMARY | 2025-01-24 22:59 | XMS_ITS | Continuity of Care Document ---
Author Organization [facility] Address Unknown Care Team Providers Care Counter Sales Person Name Role Phone JUANITO DELEON Primary Care Physician [phone] Encounter _MCLAREN FLINT [id number] Date(s): 01/24/25 - 01/24/25 [facility] [address] [facility] [place] [address]- Discharge Disposition: Home (Routine DC) Attending Physician: Edgard Singh Admitting Physician: Edgard Singh Encounter Type: Lab Drop off Allergies, Adverse Reactions, Alerts SubstanceCriticalitySeverityReactionReaction SeverityStatusVicodinrashActive Treatment Plan Diagnostic Tests Pending * Throat Culture 01/24/25 Immunizations Given and Recorded VaccineDateStatusRefusal FrvkfzTGZH-TlY-0 (COVID-19) mRNA BNT-162b2 vax105/02/20 CmvdkoyxYHCX-AjP-8 (COVID-19) mRNA BNT-162b2 vax104/06/2014TkrpicldVXVM-KaX-8 (COVID-19) mRNA BNT-162b2 dms520//Recordedinfluenza virus vaccine, zhxrgpcudsu25/31/21Recordedinfluenza virus vaccine, uwynmrcdcvt52/28/09Recorded hepatitis B adult vaccine12/25/05RecordedTd(adult) unspecified formulation11/23/02 Recordedmeasles/mumps/rubella virus vaccine11/23/02Recordedmeasles/mumps/rubella virus vaccine07/23/92Recordedhepatitis B pediatric vaccine11/23/02Recorded poliovirus vaccine, inactivated05/01/94Recordedpoliovirus vaccine, inactivated 07/23/92Recordedpoliovirus vaccine, zltpofyarpc39/14/91Recordedpoliovirus vaccine, inactivated90Recordeddiphtheria/pertussis, acel/tetanus ped05/01/94 Recordeddiphtheria/pertussis, acel/tetanus ped07/23/92Recorded diphtheria/pertussis, acel/tetanus ped02/10/91Recordeddiphtheria/pertussis, acel/tetanus ped90RecordedHib, unspecified formulation07/23/92RecordedHib, unspecified xftfgpranow44/14/91RecordedHib, unspecified formulation90 Recorded 1Result Comment: 2025-01-24: TPVAL 2Result Comment: 2025-01-24: TPVAL Medications amLODIPine 10 mg Tab TAKE 1 TABLET BY MOUTH DAILY Start Date: 01/24/25 Status: Ordered Medication Dispense Status: Completed Total Allowed Fills: 1 Fills Dispensed: 0 Bromfed DM oral syrup 5 mL, Oral, QID for cold symptoms, 200 mL, Refill(s) 0, [employer] #37, 152, cm, 01/24/25 12:06:00 EDT, Height/Length Dosing, 104.2, kg, 01/24/25 12:06:00 EDT, Weight Dosing Start Date: 01/24/25 Status: Ordered Medication Dispense Status: Completed Quantity: 200.0 Unit: mL Total Allowed Fills: 1 Fills Dispensed: 0 Indications: Acute upper respiratory infection, unspecified; Cough, unspecified; hydrochlorothiazide-lisinopril 12.5 mg-20 mg Tab TAKE 2 TABLETS BY MOUTH EVERY DAY FOR 90 DAYS Start Date: 01/24/25 Status: Ordered Medication Dispense Status: Completed Total Allowed Fills: 1 Fills Dispensed: 0 Problem List ConditionConfirmationCourseEffective DatesStatusHealth StatusInformantH/O: migraineConfirmedResolvedKnee ldpqCyepuljjqQxhowfpoOjlzmt6XcovvhijoMcykst 1Added secondary to documentation in Social History. Procedures ProcedureDateRelated DiagnosisBody OobvPcozhjjcsmzfaide52/2/09Completedwisdom teeth nibnvpsdgm90/1/07Completed 1vag delivery Social History Social History TypeResponseSmoking StatusFormer smoker, quit more than 30 days ago entered on: 01/24/25Birth SexFemaleSex RepresentationFemale (finding) Patient Care team information Care Team Personnel Name: ADRIENNE MELLO JUANITO Position: Powerchart Outreach Office Staff Member Role: Primary Care Physician Address: [address] [place] [address] Telecom: Care Team Related Persons Name: RAMÓN VALENTINO Name: RAMÓN VALENTINO Name: CHRISTIAN VALENTINO Name: DAVE NATION Insurance Providers Guarantor name: JOLENE VALENTINO Health Plan Information #: 1 Payer: Medicaid Payer Identifier: [id number] Member Number: [id number] Group Number: [id number] Subscriber Identifier: [id number] Relationship to Subscriber: self Coverage Type: MEDICAID Coverage Verification Date: TERESA Telecom: [id number] Address: [facility] [address] [place] [address]
--- OUTSIDE RECORDS SUMMARY | 2025-01-24 22:59 | XMS_ITS | Continuity of Care Document ---
Author Organization [facility] Address [address], [place] [address] Care Team Providers Care Switchboard Wirer Name Role Phone HERLINDAJUANITO GUY Primary Care Physician Encounter [email or web address] [id number] Date(s): 01/24/25 - 01/24/25 [facility] [address] [place] [id number]- Encounter Diagnosis Viral URI(Discharge Diagnosis) - 01/24/25 BMI 45.0-49.9, adult(Discharge Diagnosis) - 01/24/25 Cough(Discharge Diagnosis) - 01/24/25 Discharge Disposition: Home (Routine DC) Attending Physician: Edgard Singh Encounter Type: Clinic Allergies, Adverse Reactions, Alerts SubstanceCriticalitySeverityReactionReaction SeverityStatusVicodinrashActive Immunizations Given and Recorded VaccineDateStatusRefusal HysptkSIFH-XaW-3 (COVID-19) mRNA BNT-162b2 vax105/02/20 IcgunuudUIMO-VcS-9 (COVID-19) mRNA BNT-162b2 vax104/06/41HadairmjQDDH-CdU-4 (COVID-19) mRNA BNT-162b2 kgm707/21/Recordedinfluenza virus vaccine, eqhuhzljwxd64/31/21Recordedinfluenza virus vaccine, yrerkvueexd76/28/09Recorded hepatitis B adult vaccine12/25/05RecordedTd(adult) unspecified formulation11/23/02 Recordedmeasles/mumps/rubella virus vaccine11/23/02Recordedmeasles/mumps/rubella virus vaccine07/23/92Recordedhepatitis B pediatric vaccine11/23/02Recorded poliovirus vaccine, inactivated05/01/94Recordedpoliovirus vaccine, inactivated 07/23/92Recordedpoliovirus vaccine, zgxzyppeqhc40/14/91Recordedpoliovirus vaccine, inactivated90Recordeddiphtheria/pertussis, acel/tetanus ped05/01/94 Recordeddiphtheria/pertussis, acel/tetanus ped07/23/92Recorded diphtheria/pertussis, acel/tetanus ped02/10/91Recordeddiphtheria/pertussis, acel/tetanus ped90RecordedHib, unspecified formulation07/23/92RecordedHib, unspecified agwrwyvewjn87/14/91RecordedHib, unspecified formulation90 Recorded 1Result Comment: 2025-01-24: TPVAL 2Result Comment: 2025-01-24: TPVAL Medications amLODIPine 10 mg Tab TAKE 1 TABLET BY MOUTH DAILY Start Date: 01/24/25 Status: Ordered Medication Dispense Status: Completed Total Allowed Fills: 1 Fills Dispensed: 0 Bromfed DM oral syrup 5 mL, Oral, QID for cold symptoms, 200 mL, Refill(s) 0, Octoplus #37, 152, cm, 01/24/25 12:06:00 EDT, Height/Length [...] 0 Problem List ConditionConfirmationCourseEffective DatesStatusHealth StatusInformantH/O: migraineConfirmedResolvedKnee uwddQkvabwzrzUdalprrxZggkcu5WqpktikwwYwmrqk 1Added secondary to documentation in Social History. Procedures ProcedureDateRelated DiagnosisBody KfwxMvlsswwpqlbugrdi23/2/09Completedwisdom teeth yccnnfhdsv26/1/07Completed 1vag delivery Social History Social History TypeResponseSmoking StatusFormer smoker, quit more than 30 days ago entered on: 01/24/25Birth SexFemaleSex RepresentationFemale (finding) Hospital Discharge Instructions Patient Education 01/24/2025 12:32:33 Upper Respiratory Infection, Adult, Wpgo-uh-Dzed Upper Respiratory Infection, Adult An upper respiratory infection (URI) affects the nose, throat, and upper airways that lead to the lungs. The most common type of URI is often called the common cold. URIs usually get better on their own, without medical treatment. What are the causes? A URI is caused by a germ (virus). You may catch these germs by: ??? Breathing in droplets from an infected person's cough or sneeze. ??? Touching something that has the germ on it (is contaminated) and then touching your mouth, nose, or eyes. What increases the risk? You are more likely to get a URI if: ??? You are very young or very old. ??? You have close contact with others, such as at work, school, or a health care facility. ??? You smoke. ??? You have long-term (chronic) heart or lung disease. ??? You have a weakened disease-fighting system (immune system). ??? You have nasal allergies or asthma. ??? You have a lot of stress. ??? You have poor nutrition. What are the signs or symptoms? Runny or stuffy (congested) nose. ??? Cough. ??? Sneezing. ??? Sore throat. ??? Headache. ??? Feeling tired (fatigue). ??? Fever. ??? Not wanting to eat as much as usual. ??? Pain in your forehead, behind your eyes, and over your cheekbones (sinus pain). ??? Muscle aches. ??? Redness or irritation of the eyes. ??? Pressure in the ears or face. How is this treated? URIs usually get better on their own within 7???10 days. Medicines cannot cure URIs, but your doctor may recommend certain medicines to help relieve symptoms, such as: ??? Mcgr-agd-zoonwuu cold medicines. ??? Medicines to reduce coughing (cough suppressants). Coughing is a type of defense against infection that helps to clear the nose, throat, windpipe, and lungs (respiratory system). Take these medicines only as told by your doctor. ??? Medicines to lower your fever. Follow these instructions at home: Activity ??? Rest as needed. ??? If you have a fever, stay home from work or school until your fever is gone, or until your doctor says you may return to work or school. ??? You should stay home until you cannot spread the infection anymore (you are not contagious). ??? Your doctor may have you wear a face mask so you have less risk of spreading the infection. Relieving symptoms ??? Rinse your mouth often with salt water. To make salt water, dissolve ?1 tsp (3???6 g) of salt in 1 cup (237 mL) of warm water. ??? Use a cool-mist humidifier to add moisture to the air. This can help you breathe more easily. Eating and drinking ??? Drink enough fluid to keep your pee (urine) pale yellow. ??? Eat soups and other clear broths. General instructions ??? Take fhbq-yfq-trazjit and prescription medicines only as told by your doctor. ??? Do not smoke or use any products that contain nicotine or tobacco. If you need help quitting, ask your doctor. ??? Avoid being where people are smoking (avoid secondhand smoke). ??? Stay up to date on all your shots (immunizations), and get the flu shot every year. ??? Keep all follow-up visits. How to prevent the spread of infection to others ??? Wash your hands with soap and water for at least 20 seconds. If you cannot use soap and water, use hand rail switch operator. ??? Avoid touching your mouth, face, eyes, or nose. ??? Cough or sneeze into a tissue or your sleeve or elbow. Do not cough or sneeze into your hand orinto the air. Contact a doctor if: ??? You are getting worse, not better. ??? You have any of these: ??? A fever or chills. ??? Brown or red mucus in your nose. ??? Yellow or brown fluid (discharge)coming from your nose. ??? Pain in your face, especially when you bend forward. ??? Swollen neck glands. ??? Pain when you swallow. ??? White areas in the back of your throat. Get help right away if: ??? You have shortness of breath that gets worse. ??? You have very bad or constant: ??? Headache. ??? Ear pain. ??? Pain in your forehead, behind your eyes, and over your cheekbones (sinus pain). ??? Chest pain. ??? You have long-lasting (chronic) lung disease along with any of these: ??? Making high-pitched whistling sounds when you breathe, most often when you breathe out (wheezing). ??? Long-lasting cough (more than 14 days). ??? Coughing up blood. ??? A change in your usual mucus. ??? You have a stiff neck. ??? You have changes in your: ??? Vision. ??? Hearing. ??? Thinking. ??? Mood. These symptoms may be an emergency. Get help right away. Call 911. ??? Do not wait to see if the symptoms will go away. ??? Do not drive yourself to the hospital. Summary ??? An upper respiratory infection (URI) is caused by a germ (virus). The most common type of URI is often called the common cold. ??? URIs usually get better within 7???10 days. ??? Take ejte-pos-pghclwr and prescription medicines only as told by your doctor. This information is not intended to replace advice given to you by your health care provider. Make sure you discuss any questions you have with your health care provider. Document Revised: 10/16/2021 Document Reviewed: 10/16/2021 [employer] Patient Education ?? 2023 [employer] Follow Up Care 01/24/2025 11:36:46 With:JUANITO DELEON CNP Address: [address] [place] [phone] When: Unknown Patient Care team information Care Team Personnel Name: JUANITO DELEON CNP Position: Powerchart Outreach Office Staff Member Role: Primary Care Physician Address: [address] [place], [place] [address] Telecom: Care Team Related Persons Name: RAMÓN VALENTINO Name: RAMÓN VALENTINO Name: CHRISTIAN VALENTINO Name: [employer] Insurance Providers Guarantor name: JOLENE VALENTINO Health Plan Information #: 1 Payer: Medicaid Payer Identifier: [id number] Member Number: [id number] Group Number: Subscriber Identifier: [id number] Relationship to Subscriber: self Coverage Type: MEDICAID Coverage Verification Date: TERESA Telecom: [phone] Address: [facility] [id number] [place] [id number]
--- OUTSIDE RECORDS SUMMARY | 2025-01-25 11:03 | XMS_ITS | Continuity of Care Document ---
Author Organization [facility] Address [address] [place] [address] Phone Care Team Providers Care Floor Care Technician Name Role Phone Tea Donovan APRN Primary Care Provider Cindy Bautista APRN Attending Provider Tamhina Flores NP-C Attending Provider Care Teams Patient Care Team Team Status: Active Member Role/Relationship Status Dates Mark Mayorga DPM MS Specialist Active Narendranath Lakshmipathsatish , MDSpecialistActiveChertesfaye Schmitt SUPERINTENDENT [employer]-CSpecialist ActiveFelicia Angela Hollins SUPERINTENDENT [employer]-CSpecialistActiveDaEnrique Head Care ProviderActive Visit Care Team Team Status: Inactive Member Role/Relationship Status Dates Tea Donovan APRN Primary Care Provider Active Start: October 27, 2024 End: October 27, 2024Marie Davis ProviderActiveStart: October 27, 2024 End: October 27, 2024 Visit Care Team Team Status: Inactive Member Role/Relationship Status Dates Tea Donovan APRN Primary Care Provider Active Start: December 09, 2024 End: December 09, 2024Marie Davis ProviderActiveStart: December 09, 2024 End: December 09, 2024 Patient Care Team Team Status: Inactive Member Role/Relationship Status Dates Tea Donovan APRN Primary Care Provider Active Start: January 25, 2025 End: January 25ndra Sandra NP-CAttending ProviderActiveStart: January 25, 2025 End: January 25, 2025 Chief Complaint and Reason for Visit Chief Complaint Admit Date WMN f/u October 27, 2024 8:33 am 6 week-WMN f/u December 09, 2024 9:39am R06.83 R40.0 Z68.41 January 25, 2025 2 :43pm Reason for Visit Admit Date Anxiety October 27, 2024 8:33 am Bipolar 2 disorder October 27, 2024 8:33 am BMI 40.0-44.9, adult October 27, 2024 8:3 3am Depression October 27, 2024 8:33 am Fatty liver October 27, 2024 8:33 am Gastroesophageal reflux disease without esophagitis October 27, 2024 8:33am HLD (hyperlipidemia) October 27, 2024 8:3 3am HTN (hypertension) October 27, 2024 8:33 am Prediabetes October 27, 2024 8:33 am PTSD (post-traumatic stress disorder) Ju ly 2024 8:33am Pulsatile tinnitus of both ears September 8:33am Vitamin D deficiency October 27, 2024 8:3 3am Anxiety December 09, 2024 9:39am Bipolar 2 disorder December 09, 2024 9:39am BMI 40.0-44.9, adult December 09 9:39am Depression December 09, 2024 9:39am Fatty liver December 09, 2024 9:39am Gastroesophageal reflux disease without esophagitis December 09, 2024 9:39am HLD (hyperlipidemia) December 09 9:39am HTN (hypertension) December 09, 2024 9:39am Prediabetes December 09, 2024 9:39am PTSD (post-traumatic stress disorder) Se ptember 2024 9:39am Pulsatile tinnitus of both ears Septembe r 2024 9:39am Vitamin D deficiency December 09 9:39am Allergies, Adverse Reactions, Alerts Allergen Type Severity Reaction Last Updated Verified Status Comments acetaminophen Allergy Unknown itching and hives December 09, 2024 9:57am Yes Active buspironeAllergyUnknownNightmaresSeptember 2024 9:57amYesActiveOnset Date: 01/28/2022ephalexinAllergyUnknownhivesSeptember 2024 9:57amYesActiveOnset Date: 05/09/2022hydrocodoneAllergyUnknownItching, itching and hivesSeptember 2024 9:57amYesActiveduloxetineAdverse ReactionModeratenightmaresSeptember 2024 9:57amYesActive Social History Smoking Status Status Start Date End Date Date of Observa tion Ex-smoker (finding) December 09, 2024 9:59am Observation Status Observation Response Date of Response Legal Sex Female (finding) [facility] Family History Relationship Condition Age at Onset Recorded Date/T josiah mother Diabetes mellitus Unknown HypertensionUnknowngrandparentDeceasedUnknownHeart diseaseUnknowngrandparent Malignant neoplasmUnknownDeceasedUnknowngrandparentDiabetes mellitusUnknown grandparentDiabetes mellitusUnknown Problems Active Problems Problem Diagnosis/Recorded Date Onset Date Status C omments Depression with anxiety May 11, 2023 12:47pm Unknow n Active Daytime sleepinessSeptember 2024 10:35amUnknownActiveNeuropathy of hand May 11, 2023 12:00vm2733DufqfwNazvairz spine painJanuary 2024 3:40pm UnknownActiveComplaint of paresthesiaFebruary 2023 12:47pmUnknownActive Bipolar 2 disorderFebruary 2024 3:04pmUnknownActivePTSD (post-traumatic stress disorder)May 19, 2024 3:04pmUnknownActiveMorbid (severe) obesity due to excess caloriesSeptember 2023 10:11amUnknownActiveSubluxation of left ankle jointDecember 2023 11:48amUnknownActiveUncontrolled daytime somnolenceFebruary 2023 12:47pmUnknownActiveFatty liverFebruary 2023 12:47pmUnknownActiveAnxietyFebruary 2023 12:47pmUnknownActive Psychophysiological insomniaFebruary 2023 12:47pmUnknownActiveOccipital neuralgiaJune 2024 11:36amUnknownActiveNeuro July 2024Pulsatile tinnitus of both earsMarch 2024 1:03pmUnknownActiveDepressionApril 2023 8:40am UnknownActiveDyslexiaFebruary 2024 3:04pmUnknownActiveHLD (hyperlipidemia) May 11, 2023 12:47pmUnknownActiveSnoresSeptember 2024 10:35am UnknownActiveChronic low back pain with sciaticaFebruary 2023 12:47pm UnknownActiveBMI 45.0-49.9, adultMay 2024 8:27amUnknownActiveBMI 40.0-44.9, adultAugust 2024 2:34pmUnknownActiveGastroesophageal reflux disease without esophagitisFebruary 2023 12:47pmUnknownActivePrediabetesJuly 2023 12:39pmUnknownActiveLeft otitis media with spontaneous rupture of eardrum March 21, 2024 5:04pmUnknownActiveFibromyalgia muscle painFebruary 2023 12:47pmUnknownActiveHTN (hypertension)May 11, 2023 12:47pmUnknown ActiveVitamin D deficiencyApril 2023 9:02amUnknownActiveDuodenitisFebruary 2023 12:47pmUnknownActiveCervical radicular painJanuary 2024 3:40pm UnknownActiveFluid retentionMarch 2024 1:03pmUnknownActive Inactive/Resolved Problems Problem Diagnosis/Recorded Date Onset Date Status C omments Cannabis intoxication March 28, 2023 1:41am Unknown Resolved History of mastoiditisFebruary 2023 11:24pmUnknownResolvedUncontrolled hypertensionFebruary 2023 12:47pmUnknownResolvedChronic otitis mediaMarch 2023 1:81kjCalqdfqIparwlix5yx deg burn armSeptember 2023 11:25am UnknownResolvedChronic fatigueFebruary 2023 12:47pmUnknownResolved HypercholesterolemiaFebruary 2023 12:47pmUnknownResolvedMastoiditis May 12, 2023 12:40pmUnknownResolvedOtitis externaFebruary 2023 12:40pmUnknownResolvedNon-cardiac chest painJuly 2023 10:46pmUnknown ResolvedMusculoskeletal limb painNovember 2023 1:39amUnknownResolvedAcute mastoiditisFebruary 2023 11:47pmUnknownResolvedAbnormal finding on imaging May 11, 2023 12:47pmUnknownResolvedChest painNovember 2023 1:39am UnknownResolvedHTN (hypertension)October 03, 2023 10:46pmUnknownResolvedNausea May 12, 2023 12:40pmUnknownResolvedSore throatJuly 2023 10:46pm UnknownResolvedObesityFebruary 2023 12:47pmUnknownResolved Medications Medication Status Dose Units Route Directions Qty Days Refills S tart Date Stop Date End Date Reason(s) Instructions Adherence Lisinopril-Hydrochlorothiazi de 20-12.5 mg tablet Discontinued 2 TAB PO Daily 180 90 1 May 21, 2023 3:17pm December 02, 2023 10:11amAmlodipine 5 mg wikczfSndxbiyfrfxs1HLCXAbxlu41557Zss 2023 4:00pmAugust 2023 3:45pmCyclobenzaprine 10 mg tabletDiscontinued 10MGPODaily at dzufwpi002Gmq 2023 4:09pmDecember 2023 11:53am Escitalopram Oxalate 10 mg eyzcfiWbxnmnfkpyed34OMXCYauxm807Fiiobtha 2024 3:04pmApril 2024 3:02pmPsychiatry March 2024Lamotrigine (Lamictal) 25 mg xrkswqDfhupmxtxcsj72BVNLCygvj83755Alhwczng 2024 1:00amApril 2024 3:02pmPsychiatry March 2024Prazosin 1 mg qtwuflzAilvrgwavsvk9FNTPSyyca at emdbfkb848Sntkbvoy 2024 1:00amApril 2024 3:03pmPsychiatry Marchmlodipine 10 mg opwddnNmwlvk58QRQJGuips57948Ophfe 2024 10:26am Complies with drug therapyPen Needle, Diabetic (Sure Comfort Pen Needle) 32 gauge x 5/32 bhuleiEsamqk6GWIDLOUFTE.TWPIJEXLF2250Qwsr 2024 12:00amOn Hold: victoza on hold As directed use with Victoza injectionLisinopril-Hydrochlorothiazide 20-12.5 mg vwtvskTaorzj7LVQDPEqhye183638Pbkrwu 2024 8:18amComplies with drug therapy Ondansetron Hcl 8 mg jyzjgeAsotqgbfcbae8OMSUFyetg 8 hours as needed for nausea and vomitingJuly 2023 12:00amNovember 2023 3:38pmSulfamethoxazole- Trimethoprim (Bactrim Ds) 800-160 mg kbfsrcLvwzcwroamkm3NOLWNQzxub yikja043Hidkv 2018 12:00amMay 2022 1:33pmMupirocin 2 % ojcgsrhkElwkwbcpinpt5LFNCIT TOPICALTwice anris302Wbqbi 2018 12:00amMay 2022 1:33pmCyclobenzaprine 10 mg oqlbqhFydemvvuvbob88WZGZZxdko as needed for PainMay 2022 12:00am May 11, 2023 6:38pmLisinopril-Hydrochlorothiazide 20-12.5 mg Tablet Tpmakgwvivqs0SDUOQZbuwmSti 2022 12:00amFebruary 2023 6:38pmAmlodipine 5 mg sekfamXjfnrkmmjpaj4QFVXXsvejZxo 2022 12:00amFebruary 2023 6:31pm Omeprazole 20 mg capsule,delayed release(DR/EC)Nwibaqrwinqo19KILFUuqjsFpg 2022 12:00amFebruary 2023 6:39pmFluticasone Propionate 50 mcg/actuation spray,vzhmekyjruVrhzdytujugr4BZXDCQUYORCKYHKSmpgkAbw 2022 12:00amFebruary 2023 8:35pmDuloxetine 30 mg capsule,delayed release(DR/EC)Splsjvgrknzy17UN PODailyMay 2022 12:00amFebruary 2023 6:38pmAmoxicillin-Pot Clavulanate 875-125 mg mojzzpAfkjosldtzyc9MRSCIG97GMivenneb 2023 1:00am May 12, 2023 12:10pmCiprofloxacin-Dexamethasone 0.3-0.1 % drops,kmmyxyugcgQtuajbjxjbrm0VCHUHGFI-ZKQCS31RKejjyzjz 2023 1:00amFebruary 2023 12:10pmOxycodone-Acetaminophen (Percocet) 5-325 mg tabletDiscontinued 3COVAWL4B as needed for vgyh7Edcyiulq 2023 1:00amFebruary 2023 12:12pmMetronidazole 500 mg hqojrfPippizwaqila854FYLGQnmu times xrcqe59630 May 07, 2023 1:00amMarch 2023 1:27pmLevofloxacin 750 mg tablet Cndhfonqxral624XLWMYikmr30360Lgvitvzn 2023 1:00amMarch 2023 1:27pm Oxycodone-Acetaminophen (Percocet) 5-325 mg msqiazNyzejhuivyyb8MCYLWP3M as needed for ofxa2667Sceszxni 2023February 2023 12:12pmAcute mastoiditis Acute mastoiditis without complications, unspecified earAmlodipine 5 mg tablet Lhlipcyahdqo7WGNVLwevfMkawjbbt 2023 1:00amMay 2023 4:00pm FreeTextSi tablet Orally Once a day; Note: Source Status: Refill; Refills: 1; Qty: 90 Tablet; Provider: Zion Metcalf JCyclobenzaprine 10 mg tablet Vodwcmsjfdai26PJQVXzkml at bedtimeFebruary 2023 1:00amMay 2023 4:10pmFreeTextSi tablet at bedtime as needed Orally Once a day; Note: Source Status: Taking; Refills:2; Provider: Zion GARCIAiraglutide (Victoza 2- Lele) 0.6 mg/0.1 mL (18 mg/3 mL) pen injectorDiscontinued1.8MGSUBCUTDailybruary 2023 1:00amMarc 2023 12:51pmFreeTextSi.8 mg Subcutaneous daily; Note: Source Status: Refill; Refills: 1; Qty: 3 pack; Provider: Susanne Mehta Metformin 500 mg tablet extended release 24 arKajqejfkdihf606FJQLLegvgRekfqgos 2023 1:00amFebruary 2023 12:11pmFreeTextSi tablet with breakfast Orally Once a day; Note: Source Status: Refill; Refills: 1; Provider: Susanne Kruse LHydrocortisone 0.5 % zogoqNimybhuqitxu5JLQEEKJDEUCEQXtgtw daily as needed for allergic reactionFebruary 2023 1:00amApril 2024 3:02pm Duloxetine 40 mg capsule,delayed release(DR/EC)Kofoggmhqvif89INXVSrduxDzgixoqe 2023 1:00amApril 2023 8:40amFreeTextSi capsule Orally Once a day; Note: Source Status: Taking; Refills: 3; Qty: 90 Capsule;Provider: Zion GARCIAisinopril-Hydrochlorothiazide 20-12.5 mg tabletDiscontinued2 TABPODailybruary 2023 1:00amFebruary 2023 3:17pmFreeTextSi tablet Orally Once a day; Note: Source Status: Taking; Provider: Zion Metcalf JOmeprazole 40 mg capsule,delayed release(DR/EC)Pibkljfyghng80NYNIItejpJmxsiqqs 2023 1:00amApril 2024 3:02pmFreeTextSi capsule 30 minutes before morning meal Orally Once a day; Note: Source Status: Taking; Refills: 0; Qty: 90 capsules; Provider: Easterwood Tea JInsulin Ragland (Disposable) 30 X 3/4 needleDiscontinued0.RouteFebruary 2023 1:00amFebruary 2023 6:52pmAs directedInsulin Ragland (Disposable) 30 X 3/4 needleDiscontinued0.Route May 11, 2023 6:51pmFebruary 2023 12:03gv64W X 5 MMOndansetron Hcl 8 mg osqqopDxqzubaztmrg7SDVWJlrjt 8 ogruy9079Fdprpgie 2023 1:00amJuly 2023 9:01pmNausea NauseaDuloxetine 60 mg capsule,delayed release(DR/EC)Jusynqqnvorf55SZMULykrn3155 1April 2023 12:00amMay 2023 10:55amErgocalciferol (Vitamin D2) 1,250 mcg (50,000 unit) smsbnkxTtccuuatdohq4960JWSQCjxbcq ossu77446Lurlb 2023 12:00amSeptember 2023 10:10amDiflunisal 500 mg tabletDiscontinuedMGPOAugust 2023 12:00amSeptember 2023 9:30amAmlodipine 10 mg tpbwklPqukjquqjsal21 NLXQHjjcl20868Cbiulz 2023 3:44pmSeptember 2023 10:09am*Double 5mg daily x 4 weeks as of 11/02/23*Diflunisal 500 mg dlemjiFkpdvscggtsj832AQSZRrdbe December 02, 2023 9:30amSeptember 2023 9:33amCiprofloxacin-Dexamethasone 0.3-0.1 % drops,levayllwbpWmnzhwxwhzpu2VKPQUFYPISuoeu dailyDece2023 1:00amJanuary 2024 2:66juPpbiximyqrajenu-Cdtwdkzch-Tl 2-30-10 mg/5 mL syrup Kyypoqdowrgh7EEWTOydu times daily as neededMarch 15, 2024 1:00amJanuary 2024 2:49pmAmoxicillin-Pot Clavulanate 875-125 mg xlcjpqGuubstpjfxwt5HMRJM Every 12 hoursMarch 15, 2024 1:00amJanuary 2024 2:49pmCyclobenzaprine 10 mg klacpwSmqxthbjqzym36VRKWAxyyd at zusjtxk067Kyebeumm 2023 11:53am July 25, 2024 3:02pmPrednisone 10 mg ivntoyXhoqhfjrojcr84ARPZKhspx times dailyJanuary 2024 1:00amJanuary 2024 2:59pmx5 daysNaproxen 500 mg bypuoqPgdrskwqinef345NQDCMbekq dailyJanuary 2024 1:00amJanuary 2024 2:59pmLiraglutide (Victoza 3-Lele) 0.6 mg/0.1 mL (18 mg/3 mL) pen injector Discontinued1.8MGSUBCUT.TUOASFK57Coab 2024 12:00amJuly 2024 8:53am 0.6 mg sq qd x 7; then 1.2 mg QD x 7, then 1.8mg qd ongoing; Branded VICTOZA not availableTopiramate (Topamax) 25 mg rrkfdaFwsjcdfzwmge12WGQZUsnbc753Icww 2024 12:00amJuly 2024 8:54amAmoxicillin-Pot Clavulanate 875-125 mg tablet Zbhzwqcexrqd4KNUEQQmsep sfiin16351Cmhib 2023 1:00amApril 2023 8:16am Duloxetine 60 mg capsule,delayed release(DR/EC)Evpyqffxuwae99JAXJLxuhk08555Ucq 2023 10:55amSeptember 2023 9:33amAmlodipine 10 mg tabletDiscontinued 69RMOGDobsz24838Tdsoxliaq 2023 10:09amApril 2024 10:27am Ergocalciferol (Vitamin D2) 50 mcg (2,000 unit) yutoqydVeepesgvvaay37WVGIUXwplf 34915Wyfqukdrc 2023 10:09amApril 2024 3:02pmLisinopril- Hydrochlorothiazide 20-12.5 mg zskcfoVfilpodgrziq4SSQOKHgbny097465Jihqtjzgy 2023 10:11amAugust 2024 8:18amPhentermine (Adipex-P) 37.5 mg tablet Peyynzbekefj07.3FRVIWgjjs05645Uatuksqto 4th, 2024 12:00am[facility] 2023 3:36pmMorbid or severe obesity due to excess calories Morbid (severe) obesity due to excess calories BMI 47must administer 30 minutes before or 1-2 hours after breakfastSilver Sulfadiazine (Silvadene) 1 % rynrhZrspijptfnxu1DHYEOPCFFKNZEMfyza yzxiq06811 December 02, 2023 12:00am[facility] 2023 3:38pmPhentermine (Adipex-P) 37.5 mg oopsfoRldystvppjgf27.1HODDLpfgc96155Stoavfbu 2023 3:35pmMar 2024 10:49amMorbid or severe obesity due to excess calories Morbid (severe) obesity due to excess calories BMI 47must administer 30 minutes before or 1-2 hours after breakfastEscitalopram Oxalate (Lexapro) 5 mg kvjrdtLokuotxkdmrn4HOEBCiorp283Gfhjzeie 2023 1:00am May 19, 2024 3:06pmHydroxyzine Pamoate (Vistaril) 25 mg capsule Syncqzfhtsxz14EVGRYmxpg daily as needed for xpfqygc4499Krbhnioe 2023 1:00amMarch 2024 10:37amTramadol 50 mg maxzoqWomggnvgygeu71XEOYJ5JSznjs 2024 12:00amApril 2024 3:03pmPhentermine (Adipex-P) 37.5 mg tablet Ahzlpaywpcnj92.8YBLYZiclj22684Brqmq 2024 1:10pmApril 2024 5:03pm Morbid or severe obesity due to excess calories Morbid (severe) obesity due to excess calories BMI 47must administer 30 minutes before or 1-2 hours after breakfast Nortriptyline (Pamelor) 25 mg mpmkgfnLygorgfghwma10BYTALcxvw at aubswij674Hzdv 2024 12:00amSept2024 9:58amNeuro Julyyclobenzaprine 10 mg cxptldGxkfih54FGITJrthv at bedtime as neededApril 2024 12:00amComplies with drug therapyLiraglutide (Victoza 3-Lele) 0.6 mg/0.1 mL (18 mg/3 mL) pen injectorDiscontinued1.8MGSUBCUT.TAMYVVH38Rkuhk 2024 12:00amJuly 2024 8:53am0.6 mg sq qd x 7; then 1.2 mg QD x 7, then 1.8mg qd ongoing;Pen Needle, Diabetic 32 gauge x 5/32 needleActive0.ROUTE.PWPAMFRFZ7478Rqlvw 2024 12:00amOn Hold: victoza on hold As directed, for use with victoza Immunizations Immunization Event Date Not Given Reason Dose Number Business Center 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 Lot Number Reason(s) Given Vaccine Information Statement (VIS) Detail Administration Location COVID-19 mRNA, Comirnaty ([employer]) March 19, 2020 COVID-19 mRNA, Comirnaty ([employer])April 06OVID-19 mRNA, Comirnaty ([employer])March 01iphtheria, TT and 5 pertussis antigensSeptember 1990diphtheria, TT and 5 pertussis antigensNovember 1990diphtheria, TT and 5 pertussis antigensApril 1992diphtheria, TT and 5 pertussis antigens May 01, 1994diphtheria, TT and pertussis vaccineJuly 2020 Quadrivalent Influenza (mdv)January 27, 2021Hepatitis B Vaccine, adult dosage December 25, 2005Hepatitis B Vaccine, adol/ped dosageAugust 2002Hib, unspecified formulationSeptember 1990Hib, unspecified formulationNovember 1990Hib, unspecified formulationApril 1992influenza, unspecified formulationFebruary 2010Inactivated Poliovirus VaccineSeptember 1990 Inactivated Poliovirus VaccineNovember 1990Inactivated Poliovirus Vaccine July 23, 1992Inactivated Poliovirus VaccineFebruary 1994Measles, Mumps, and Rubella Virus VaccineApril 1992Measles, Mumps, and Rubella Virus VaccineAugust 2002Quadrivalent InfluenzaOctober 2020Td(adult) unspecified formulationAugust 2002 Vital Signs Vital Reading Result Reference Range Collection Date/Time Height 60.16 [in_i] October 27, 2024 8:82asJhasfh392.55 kgJuly 2024 8:55amHeart Rate75 /min 60-100July 2024 8:55amRespiratory rate18 /gox23-06Dyet 2024 8:55am Oxygen saturation by Pulse ryhmxtku66 %95-100July 2024 8:55amBP Systolic 119 mm[Hg]100-140July 2024 8:55amBP Ktxbltgmc93 mm[Hg]60-100July 2024 8:55amBMI (Body Mass Index)44.3 kg/m2July 2024 8:42abHzoloa86.47 [in_i]December 09, 2024 9:53oqShtumc282.00 kgSeptember 2024 9:56amHeart Rate67 /vuz76-803Jldqdkfew 2024 9:56amRespiratory rate18 /nly60-36 December 09, 2024 9:56amOxygen saturation by Pulse tdlsfazf03 %95-100 December 09, 2024 9:56amBP Qfotvojh572 mm[Hg]100-140September 2024 9:56amBP Nckulroop02 mm[Hg]60-100September 2024 9:56amBMI (Body Mass Index)44.1 kg/w9Rersitqrm 2024 9:85rqVgdrvh89 [in_i]January 25, 2025 3:42tpWswpwb283.15 kgOctober 2024 3:19pmHeart Rate74 /uny95-028Xnlftfr 2024 3:19pmOxygen saturation by Pulse emehrrns31 %95-100October 2024 3:19pmBP Ymqiejkd110 mm[Hg]100-140October 2024 3:19pmBP Ehcgofxdj00 mm[Hg]60-100October 2024 3:19pmBMI (Body Mass Index)43.5 kg/o1Cyxmihr 2024 3:19pm Advance Directives Advance Directive Response Recorded Date/ Time Advance Directives No August 05, 2017 1:52pm Insurance Providers Guarantor Lisandra Mehta Will Address [address] [facility] [facility] [address]Hlctzwq Info.Home Phone: Coverage Status Update:2024 Payer Group Member ID Coverage Type Subscriber Relationship to Subscriber Effective Date Expiration Date Lea Mccall Medicaid Id: [id number] L Baum Id: [id number] [address] [facility] [address] Home Phone: Email: [email or web address] Encounter Location(s) Arrival/Admit Date Discharge/Departure Date Discharge/Departure Disposition Provider(s) Departed Physician/ Provider Office Visit -[facility] October 27, 2024 8:33am October 27, 2024 9:32am Discharged to home care or self care (routine discharge) Cindy Bautista APRN Departed Physician/ Provider Office Visit -[facility] December 09, 2024 9:39am December 09, 2024 10:38am Discharged to home care or self care (routine discharge) Cindy Bautista APRN Departed Physician/ Provider Office Visit -[facility] January 25, 2025 2:43pm January 25, 2025 4:02pm Discharged to home care or self care (routine discharge) Tahmina Flores APRN Recent Diagnosis Onset Date Admit Date Anxiety Unknown October 27, 2024 8:33am Bipolar 2 disorder Unknown October 27 8:33am BMI 40.0-44.9, adult Unknown October 27, 2024 8:33am Depression Unknown October 27, 2024 8:33am Fatty liver Unknown October 27, 2024 8:33am Gastroesophageal reflux dise ase without esophagitis Unknown October 27, 2024 8:33am HLD (hyperlipidemia) Unknown October 27, 2024 8:33am HTN (hypertension) Unknown October 27 8:33am Prediabetes Unknown October 27, 2024 8:33am PTSD (post-traumatic stress disorder) Unknown October 27, 2024 8:33am Pulsatile tinnitus of both ears Unknown October 27, 2024 8:33am Vitamin D deficiency Unknown October 27, 2024 8:33am Anxiety Unknown December 09, 2024 9:39am Bipolar 2 disorder Unknown November 9:39am BMI 40.0-44.9, adult Unknown November 282024 9:39am Depression Unknown December 09, 2024 9:39am Fatty liver Unknown December 09, 2024 9:39am Gastroesophageal reflux dise ase without esophagitis Unknown December 09, 2024 9:39am HLD (hyperlipidemia) Unknown November 282024 9:39am HTN (hypertension) Unknown November 9:39am Prediabetes Unknown December 09, 2024 9:39am PTSD (post-traumatic stress disorder) Unknown December 09, 2024 9:39am Pulsatile tinnitus of both ears Unknown December 09, 2024 9:39am Vitamin D deficiency Unknown November 282024 9:39am Assessments Diagnosis Onset Date Resolution Status Admit Date Anxiety acuteJuly 2024 8:33amBipolar 2 disorderacuteJuly 2024 8:33amBMI 40.0-44.9, adultacuteJuly 2024 8:33amDepressionacuteJuly 2024 8:33am Fatty liveracuteJuly 2024 8:33amGastroesophageal reflux disease without esophagitisacuteJuly 2024 8:33amHLD (hyperlipidemia)acuteJuly 2024 8:33amHTN (hypertension)acuteJuly 2024 8:33amPrediabetesacuteJuly 2024 8:33amPTSD (post-traumatic stress disorder)acuteJuly 2024 8:33am Pulsatile tinnitus of both earsacuteJuly 2024 8:33amVitamin D deficiency acuteJuly 2024 8:33amAnxietyacuteSeptember 2024 9:39amBipolar 2 disorderacuteSeptember 2024 9:39amBMI 40.0-44.9, adultacuteSeptember 2024 9:39amDepressionacuteSept2024 9:39amFatty liveracuteSept2024 9:39amGastroesophageal reflux disease without esophagitisacute December 09, 2024 9:39amHLD (hyperlipidemia)acuteSept2024 9:39am HTN (hypertension)acuteDecember 09, 2024 9:39amPrediabetesacuteSe2024 9:39amPTSD (post-traumatic stress disorder)acuteDecember 09, 2024 9:39amPulsatile tinnitus of both earsacuteDecember 09, 2024 9:39amVitamin D deficiencyacuteDecember 09, 2024 9:39am Plan of Treatment [facility] 2:46pm10/27/2024 returns for weight management follow-up. Feels her nutritional effort is good since her last visit she is not logging. She has had significant nausea and constipation from Victoza and despite recommendations 10/25/2024 she did continue to escalate the medication. She continues to have issues staying away from sweets despite nausea and GLP-1 RA. Nausea is been going on approximately 3 weeks, had some stomach pain last Thursday that dissipated. She is taking a stool softener in the morning and at night. She continues to work despite symptoms. She is nontoxic today. She reports continuing to walk every day Her mood today is good 09/12/2024 returns for weight management follow-up. Feels her nutritional effort is fair since her last visit. She has not been able to find branded Victoza and therefore has not started GLP-1 RA. She feels good that she is watching what she eat trying to drink more water she finds it exercise to be challenging despite that she is walking daily. We did discuss her headaches, she did see Maite Corado and started on muscle relaxers and Pamelor at night. She took herself off of the Pamelor as she did not feel like it was helping. She takes muscle relaxers for other reasons. She is willing and interested in starting topiramate, this would be a good bridge while waiting for Victoza. If she receives both Victoza and topiramate at the same time she will start Victoza and we will discuss topiramate at her next visit. I did discuss with her when starting topiramate if she notices any worsening of mood she needs to cease taking and call me HPI: Patient is a 34-year-old female for initial weight management visit today 07/17/2024. She does report history of hypertension, prediabetes, vitamin D deficiency hyperlipidemia, arthritis prominent to the neck and bilateral feet. Bipolar disorder, anxiety depression and reflux. Family history of type 2 diabetes on mother side. Denies any fertility issues reports regular menses throughout life until menorrhagia then ablation. Children are 16, 13 and 10. 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 Recently on phentermine with equivocal results. Alcohol 1 drink 2 days/week in form of mixed drinks. 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 She reports multiple efforts for weight loss in the past, starting at age 18, she has tried more than 5 times in the past. Reporting significant escalation after she had her first child. Reporting unhealthy snacks, skipping breakfast, depression and stress eating, tempting foods at home, poor sleep, food addiction and sugar and fried foods. She does have weight issues on mom side, feels she has some binge tendencies, boredom eating, constant food thoughts and cravings. PHQ-9 score 7 she is on Lamictal, [place] sleep scale score is 1. Highest Weight: 250 lbs Program Starting Date/Weight: 07/25/2024 / 234.2 lbs BMI 45.1 Baseline bioimpedance 07/25/2024, each visit notable decrease in muscle mass and fat mass. weight loss precipitous, not healthful, expect some return Saw [facility] couple of years ago, on Victoza, had surgery, now rebooting care. reviewed old notes, fill in labs after received from [facility] BENEFITING STILL CRAVING SWEETS DESPITE NAUSEA, SE AND INCREASED DOSING. STOP Victoza and Topiramate CALLED TO PHARMACY. NO VOMITING, CONTINUES TO GO TO WORK. Current Weight: 228.3 lbs +/-: down 24.9 lbs since last visit, down 5.9 lbs from original start weight and down 21.7 from high weight. STOP VICTOZA START MIRALAX 1 CAP BID UNTIL PRODUCES BOWEL MOVEMENT. assure adequate hydration stopped phentermine since last visit in lieu of starting Victoza consider cortisol mild dorsocervical fat pad, mood, weight gain, prediabetes hold Topiramate at HS, evaluate food noise and waking headaches. could reconsider after discussion at upcoming appointment-- never started . hx of toleration of Victoza with diarrhea historically with DAKOTA. Patient denies personal or family history of MTC or MENS syndrome (discussed in layman's terms). Patient denies history of pancreatitis Consideration mental health to assure proper goal setting and strategies for success Discussed how diabetes II delayed or avoided with lifestyle changes such as, losing weight, being active, improving dietary intake. Discussed the risks for diabetes. Explained that weight loss of 5-10% can have significant impact. Consistent with weight management recommendations, encouraged diet rich in fruits, vegetables, low fat dairy, low in red meat sweets and refined grains. Stay away from soda and fruit juice. Increase activity 30 minutes most days of the week. Cost an issue. Consider for food inequities Reviewed current labs, lipid panel not available Body composition today Establish with RD-- did not since last appt. MANDATED TODAY rtc 6 weeks call if no resolution of symptoms or worsening-- ER for precipitous worsening Author Cindy Bautista [facility] CenterAuthoredSeptember 2024 12:55pm12/09/2024 returns for weight management follow-up. Feels her nutritional effort is good since her last job. She is now working at [employer] company was previously working at [employer]. She is much more physical. She feels over the past couple weeks she has noticed she has been fitting into her daughter Jono which is smaller than what she used to wear. We discussed her history of being intolerant to Victoza. She is interesting in starting phentermine but we need to wait 6 months since her last dose of phentermine this would be mid December 2024. She does have follow-up at that time. She is doing well with skeletal muscle mass increasing from last appointment down from initial baseline but fat mass decreasing per bioimpedance scale. We did discuss sleep medicine. She did discuss that she does snore, has daytime fatigue and some concentration deficit as well as anxiety. We will put this referral for her. Her mood today is good 10/27/2024 returns for weight management follow-up. Feels her nutritional effort is good since her last visit she is not logging. She has had significant nausea and constipation from Victoza and despite recommendations 10/25/2024 she did continue to escalate the medication. She continues to have issues staying away from sweets despite nausea and GLP-1 RA. Nausea is been going on approximately 3 weeks, had some stomach pain last Thursday that dissipated. She is taking a stool softener in the morning and at night. She continues to work despite symptoms. She is nontoxic today. She reports continuing to walk every day Her mood today is good 09/12/2024 returns for weight management follow-up. Feels her nutritional effort is fair since her last visit. She has not been able to find branded Victoza and therefore has not started GLP-1 RA. She feels good that she is watching what she eat trying to drink more water she finds it exercise to be challenging despite that she is walking daily. We did discuss her headaches, she did see Maite Corado and started on muscle relaxers and Pamelor at night. She took herself off of the Pamelor as she did not feel like it was helping. She takes muscle relaxers for other reasons. She is willing and interested in starting topiramate, this would be a good bridge while waiting for Victoza. If she receives both Victoza and topiramate at the same time she will start Victoza and we will discuss topiramate at her next visit. I did discuss with her when starting topiramate if she notices any worsening of mood she needs to cease taking and call me HPI: Patient is a 34-year-old female for initial weight management visit today 07/17/2024. She does report history of hypertension, prediabetes, vitamin D deficiency hyperlipidemia, arthritis prominent to the neck and bilateral feet. Bipolar disorder, anxiety depression and reflux. Family history of type 2 diabetes on mother side. Denies any fertility issues reports regular menses throughout life until menorrhagia then ablation. Children are 16, 13 and 10. Onboarding to new job at [employer] house[employer] Patient of Tea Donovan, VAMSHI Most recent A1c prediabetes, mother with type 2 diabetes on oral medications and grandmother history of type 2 diabetes. Recently on phentermine with equivocal results. Alcohol 1 drink 2 days/week in form of mixed drinks. 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 She reports multiple efforts for weight loss in the past, starting at age 18, she has tried more than 5 times in the past. Reporting significant escalation after she had her first child. Reporting unhealthy snacks, skipping breakfast, depression and stress eating, tempting foods at home, poor sleep, food addiction and sugar and fried foods. She does have weight issues on mom side, feels she has some binge tendencies, boredom eating, constant food thoughts and cravings. PHQ-9 score 7 she is on Lamictal, [place] sleep scale score is 1. Highest Weight: 250 lbs Program Starting Date/Weight: 07/25/2024 / 234.2 lbs BMI 45.1 Baseline bioimpedance 07/25/2024, each visit notable decrease in muscle mass and fat mass. weight loss precipitous, not healthful, expect some return Saw [facility] couple of years ago, on Victoza, had surgery, now rebooting care. reviewed old notes, fill in labs after received from [facility] [place] BENEFITING STILL CRAVING SWEETS DESPITE NAUSEA, SE AND INCREASED DOSING. STOP Victoza and Topiramate CALLED TO PHARMACY. NO VOMITING, CONTINUES TO GO TO WORK. Current Weight: 228.3 lbs +/-: Up 1 pound after precipitous weight loss of last visit, down 4.9 lbs from original start weight and down 20.7 from high weight. Significantly intolerant to Victoza, severe constipation Will start phentermine at 6-month cutoff which would be mid December 2024 she has follow-up in December she is satisfied with this timeline. assure adequate hydration Discussed sleep hygiene, she does snore and has daytime fatigue, has excess weight and increased neck circumference. Sleep medicine referral placed she will call if she has not heard from office in approximately 1 week consider cortisol mild dorsocervical fat pad, mood, weight gain, prediabetes hold Topiramate at HS, evaluate food noise and waking headaches. could reconsider after discussion at upcoming appointment-- never started . hx of toleration of Victoza with diarrhea historically with DAK[place]. Patient denies personal or family history of MTC or MENS syndrome (discussed in layman's terms). Patient denies history of pancreatitis Consideration mental health to assure proper goal setting and strategies for success Discussed how diabetes II delayed or avoided with lifestyle changes such as, losing weight, being active, improving dietary intake. Discussed the risks for diabetes. Explained that weight loss of 5-10% can have significant impact. Consistent with weight management recommendations, encouraged diet rich in fruits, vegetables, low fat dairy, low in red meat sweets and refined grains. Stay away from soda and fruit juice. Increase activity 30 minutes most days of the week. Cost an issue. Consider for food inequities Reviewed current labs, lipid panel not available Body composition today Establish with RD-- did not since last appt. MANDATED TODAY rtc December appointment Future Tests Future scheduled test information is unavailable Pending Tests Pending diagnostic test information is unavailable Future Visits Future appointment information is unavailable Future Procedures Procedure Name Ordered Date Scheduled Date [employer] initial clinic visit December 09, 2024 10 :34am Future Medications Future medication information is unavailable Patient Instructions Patient instructions are unavailable
--- OUTSIDE RECORDS SUMMARY | 2025-02-04 21:40 | XMS_ITS | CCD ---
Author Organization [facility] Care Team Providers Care Environmental Protection Geologist Name Role Phone Juanito Deleon Unavailable Natalie Blackwell Unavailable Johann Moe Unavailable EASTERWOOD, JUANITO Admitting Unavailable EASTERWOOD, JUANITO Primary Care Unavailable EASTERWOOD, JUANITO Attending Unavailable BARRINGTON KEARNS Attending Unavailable EASTERWOOD, JUANITO Primary Care Unavailable AMARI .AMBROCIO Consulting UnavailBARRINGTON Flores Admitting Unavailable NATALIE HERNANDEZ Consulting Unavailable BEKA [...] Care Provider RUTH ANN Deleon Attending Provider [phone] MD Uriah Skinner Attending Provider MD Jonatan Londono Jr Emergency Provider MD Uriah Skinner Attending Provider ROSE Mayorga Attending Provider GAYE Alegria Emergency Provider Unallocated, [place] Provider Primary Care Provider RUTH ANN Wilkes Emergency Provider ROSE Mayorga Attending Provider RUTH ANN Deleon Primary Care Provider [phone] GAYE Alegria Emergency Provider RUTH ANN [place]kes Emergency Provider RUTH ANN Deleon Attending Provider [facility] RIAZ, Juanito Unavailable RUTH ANN Deleon Primary Care Provider MD Jonatan Londono Jr Emergency Provider JUANITO DELEON Primary Care Physician RUTH ANN Deleon Primary Care Provider RIAZ DELEON Admitting Unavailable RIAZ DELEON Attending Unavailable Wesly Lopez Attending Unavailable RUTH ANN Deleon Attending Provider EastJuanito coelho APRN Primary Care Provider Graham Olson DO Emergency Provider Unavatesfaye Mayorga DPM Peter D Attending Provider [phone] Unallocated MD, [place] Provider Primary Care Provi madyson Easter[place] Juanito VALLECILLO Attending Provider [phone] JUDE APONTE Attending Unavailable JUDE APONTE Attending Unavailable Graham Olson Admitting Unavailable Graham Olson Attending Unavailable Easterwood, Juanito Payton Primary Care Unavailable Easterwood, Juanito J Primary Care Unavailable Mark Mayorga Admitting Unavailable HighlMark higuera Attending Unavailable Easterwood, Juanito J Attending Unavailable Easterwood, Juanito J Admitting Unavailable Easterwood, Juanito J Primary Care Unavailable Easterwood, Juanito J Attending Unavailable Easterwood, Juanito J Admitting Unavailable [place]wood, Juanito J Primary Care Unavailable [place], Juanito J Attending Unavailable [place], Juanito J Admitting Unavailable Easterwood, Juanito J Primary Care Unavailable Jonatan Londono Jr Attending Unavailable Jonatan Londono Jr Admitting Unavailable Easterwood, Juanito Payton Primary Care Unavailable [place] DREDGING INSPECTORJavier Tatea Fito Primary Care Provider [place] Juanito VALLECILLO Attending Provider [phone] Mimi SMITH, Cira Garcia Attending Unavailable Jorden Garcia Attending Unavailable Joe Cheung Attending Unavailable Shekhar FRANCOIS Attending Unavailable Shekhar FRANCOIS Attending Unavailable JUANITO DELEON Admitting Unavailable JUANITO DELEON Attending Unavailable ODETTE HOLLINS Attending Unavailable SLOANERWOOD JUANITO Referring Unavailable KEVIN EAGLE Attending Unavailable [place] Juanito VALLECILLO Primary Care Provider Cindy Bautista APRN Attending Provider Raghav MOCTEZUMA Attending Unavailable Natalie Ríos Attending Unavailable Natalie Ríos Admitting Unavailable Natalie Ríos Attending Unavailable [place] Juanito VALLECILLO Primary Care Provider Cindy Bautista APRN Attending Provider Sandra BONDS-C, Tahmina Attending Provider Allergies Allergy ClassificationReported Allergen(s)Allergy TypeDate of OnsetReaction(s) FacilityAcetaminophen (2 sources)AcetaminophenDrug Frhlsbz75-89-6484umbitozNiobrara Valley HospitalbusPIRone (2 sources)busPIRoneDrug Iwyoyye16-83-8006EqaxxqrndyHahcdewqcFairfield Medical CenterCephalosporins (antibiotic) (2 sources)CephalexinDrug Tjczkis10-05-8151iypudHojvzzghcKettering Health Behavioral Medical CenterOpioid Agonists (2 sources)HYDROcodoneDrug Yqzpchu29-67-9960Fmaxvgf, itching and [facility] (20 sources)Acetaminophen / HYDROcodone; Translations: [Vicodin]Drug Allergy 12-82-9131ywgilnq and [facility] Repository (20 sources)busPIRoneDrug Nierney15-20-0055IbsxsxdbqsPhbez Ibetor Other (20 sources)CephalexinDrug Ueznvsm62-21-8510ykkecNksekhxydKettering Health Behavioral Medical CenterComment on above:Onset Date: 05/09/2022 (1 source)CephalexinDrug Lqvidit71-48-3885MwtHolmes County [facility] (20 sources)HYDROcodone; Translations: [hydrocodone]Drug Glwpixo23-08-0439 Itching, Itching, itching and [facility] (20 sources)Acetaminophen; Translations: [acetaminophen]Drug Mckcxnv25-74-4495 [facility] (20 sources)busPIRone; Translations: [buspirone]Drug Fcinzen61-09-7397ZbubmtdgcuOhiohealth Pickerington Methodist HospitalComment on above:Onset Date: 01/28/2022 (11 sources)Acetaminophen / HYDROcodone; Translations: [HYDROCODONE-ACETAMINOPHEN]Drug Dwtpxyz49-99-0961XvhzemjBDJD Healthcare (10 sources)DULoxetine; Translations: [duloxetine]Drug Znbpues82-59-4484 [facility] (5 sources)ZolmitriptanAllergy to mtklaynkj43-56-8929FML[facility] (1 source)CephalexinDrug Yctbrri25-85-0177NjdpozlxuMorrow County Hospital Repository Medications Current Medications MedicationDrug Class(es)DatesSig (Normalized)Sig (Original)0.5 ML tirzepatide 5 MG/ML Auto-Injector [Mounjaro] (2 sources)Start: 69-79-0116pdwiqy 2.5 mg by subcutaneous injection every week Mounjaro 2.5 MG/0.5ML 2.5mg Subcutaneous weekly for 30 days July, Active acetic acid 20 mg/ml otic solution (1 source)Start: 48-51-3364khqbed acid (VOSOL) 2 % otic solution Indications: Acute diffuse otitis externa of left ear Use 4 Drops in the left ear two times a day. 15 mL 1 05/06/2024 ActiveamLODIPine 10 mg oral tablet (20 sources)Dihydropyridine Calcium Channel BlockerStart: 12-02-2023 End: 52-07-5453vlqj 1 tablet by mouth once dailyamLODIPine 10 mg Tab TAKE 1 TABLET BY MOUTH DAILY Start Date: 01/24/25 Status: Ordered Medication Dispense Status: Completed Total Allowed Fills: 1 Fills Dispensed: 0Start: 11-03-2023 End: 94-66-4755zulu 5 mg by mouth once dailyAmlodipine 10 mg tablet Discontinued 10 MG PO Daily 90 90 1 November 03, 2023 3:44pm December 02, 2023 10:09am *Double 5mg daily x 4 weeks as of 11/02/23*Start: 07-28-2022 End: 98-12-8988corr 1 tablet by mouth once dailyAmlodipine 5 mg tablet Discontinued 5 MG PO Daily May 11, 2023 1:00am August 19, 2023 4:00pm F reeTextSi tablet Orally Once a day; Note: Source Status: Refill; Refills: 1; Qty: 90 Tablet; Provider: Adrienne Metcalf JStart: 47-35-4018acat 1 tablet by mouth once dailyamLODIPine (NORVASC) 2.5 mg tablet Take 1 tablet by mouth once daily. 06/23/2021 Activetake 2 tablets by mouth once dailyamLODIPine Besylate 2.5 MG 2 tabs Orally Once a day for 30 days *INCREASETO 2 tabs daily=5mg* Active amoxicillin 500 mg oral capsule (1 source)Penicillin-class AntibacterialStart: 76-71-4600hmbo 1 capsule by mouth every twelve hoursAmoxicillin 500 MG 1 tablet Orally every 12 hrs for 10 days Nov, Activeaspirin 81 mg delayed release oral tablet (5 sources)Platelet Aggregation Inhibitor, Nonsteroidal Anti-inflammatory Drug Start: 96-28-3589lwuc 1 tablet by mouth in the morningAspirin Low Dose 81 MG EC tablet Take 81 mg by mouth in the morning and 81 mg before bedtime. 04/16/2023 Activebrompheniramine maleate 0.4 mg/ml / dextromethorphan hydrobromide 2 mg/ml / pseudoephedrine hydrochloride 6 mg/ml oral solution (11 sources)alpha-Adrenergic Agonist, Uncompetitive S-fiaust-S-aspartate Receptor Antagonist, Sigma-1 AgonistStart: 33-64-8281qvqc 5 mL by mouth four times dailyBromfed DM oral syrup 5 mL, Oral, QID for cold symptoms, 200 mL, Refill(s) 0, [facility], 152, cm, 01/24/25 12:06:00 EDT, Height/Length Dosing, 104.2, kg, 01/24/25 12:06:00 EDT, Weight Dosing Start Date: 01/24/25 Status: Ordered Medication Dispense Status: Completed Quantity: 200.0 Unit: mL Total Allowed Fills: 1 Fills Dispensed: 0 Indications: Acute upper respiratory infection, unspecified; Cough, unspecified;Start: 03-12-2024 End: 13-13-2034xfzx 1 mL by mouth four times daily as needed Elqgaeycrelrpzp-Ngwusiisg-Oa 2-30-10 mg/5 mL syrup Discontinued 5 ML PO Four times daily as needed March 15, 2024 1:00am April 05, 2024 2:49pm busPIRone hydrochloride 15 mg oral tablet (13 sources)take 2 tablets by mouth once dailybusPIRone HCl 15 MG 2 tabs Orally once a day for 30 days Activetake 1 tablet by mouth every twenty-four hours busPIRone HCl 15 MG 1 tablet at bedtime Orally once a day for 30 days Activetake 1 tablet by mouth every twenty-four hoursbusPIRone HCl 10 MG 1 tablet at bedtime Orally once a day for 14 days Activecephalexin 500 mg oral capsule (8 sources)Cephalosporin AntibacterialStart: 73-78-3691lwja 1 capsule by mouth every twelve hoursCephalexin 500 MG 1 capsule Orally every 12 hrs for 7 days Apr, Activecyclobenzaprine hydrochloride 10 mg oral tablet (20 sources)Muscle RelaxantStart: 04-01-2024 End: 05-88-9200olwh 1 tablet by mouth three times daily as needed for muscle spasmscyclobenzaprine (Flexeril) 10 MG tablet Indications: Muscle spasm Take 1 tablet (10 mg) by mouth 3 (three) times a day as needed for muscle spasms for up to 7 days 21 tablet 04/01/2024 ActiveStart: 10-14-2021 End: 15-48-6874tpvi 1 tablet by mouth once daily at bedtimeCyclobenzaprine 10 mg tablet Discontinued 10 MG PO Daily at bedtime 30 2 March 15, 2024 11:53am July 25, 2024 3:02pmhydroCHLOROthiazide 25 mg oral tablet (3 sources)Thiazide Diuretictake 1 tablet by mouth once dailyhydrochlorothiazide (HYDRODIURIL, ESIDRIX) 25 mg tablet Take 25 mg by mouth once daily. Active ibuprofen 800 mg oral tablet (5 sources)Nonsteroidal Anti-inflammatory DrugStart: 60-13-1651tuszulwus 800 MG tablet every 8 (eight) hours 03/21/2024 Activemethocarbamol 750 mg oral tablet (3 sources)Muscle RelaxantStart: 03-31-2024 End: 55-33-3738guty 1 tablet by mouth three times dailyRobaxin-750 oral tablet 750 mg = 1 tab(s), Oral, TID, X 3 day(s), # 9 tab(s), Refills(s) 0, Pharmacy: [facility] #[facility], 152, cm, 03/31/24 14:31:00 EST, Height/Length Dosing, 108, kg, 03/31/24 14:31:00 EST, Weight Dosing Start Date: 03/31/24 Stop Date: 04/03/24 Status: Cxnbqtq22 hr venlafaxine 75 mg extended release oral capsule (20 sources)Serotonin and Norepinephrine Reuptake Inhibitortake 1 capsule by mouth every twenty-four hoursVenlafaxine HCl ER 75 MG 1 capsule with food Orally Once a day for 90 days Activetake 1 capsule by mouth every twenty-four hours Venlafaxine HCl ER 37.5 MG 1 capsule with food Orally Once a day Active Completed/Discontinued Medications MedicationDrug Class(es)DatesSig (Normalized)Sig (Original)acetaminophen 325 mg / oxyCODONE hydrochloride 5 mg oral tablet (20 sources)Opioid AgonistStart: 04-29-2023 End: 59-94-1107sayk 1 tablet by mouth every six hours as needed for pain Oxycodone-Acetaminophen (Percocet) 5-325 mg tablet Discontinued 1 TAB PO Q6H as needed for pain 10 3 0 May 07, 2023 May 12, 2023 12:12pm Acute mastoiditis Acute mastoiditis without complications, unspecified earamoxicillin 875 mg / clavulanate 125 mg oral tablet (20 sources)Penicillin-class AntibacterialStart: 03-15-2024 End: 85-05-9380qmcm 1 tablet by mouth every twelve hoursAmoxicillin-Pot Clavulanate 875-125 mg tablet Discontinued 1 TAB PO Every 12 hours March 15, 2024 1:00am April 05, 2024 2:49pmStart: 06-04-2023 End: 19-13-8242etyw 1 tablet by mouth twice dailyAmoxicillin-Pot Clavulanate 875-125 mg tablet Discontinued 1 TAB PO Twice daily 20 10 0 June 04, 2023 1:00am July 14, 2023 8:16amStart: 05-07-2023 End: 20-76-7037feca 1 tablet by mouth every twelve hoursAmoxicillin-Pot Clavulanate 875-125 mg tablet Discontinued 1 TAB PO Q12H May 07, 2023 1:00am May 12, 2023 12:10pmStart: 05-05-2023 End: 48-58-3689axcc 1 tablet by mouth in the morningamoxicillin-clavulanate (Augmentin) 875-125 MG tablet Indications: Acute diffuse otitis externa of left ear Take 1 tablet (875 mg) by mouth in the morning and 1 tablet (875 mg) before bedtime. Do allthis for 10 days. 20 tablet 0 05/05/2023 05/15/2023 Active cefTRIAXone (20 sources)Cephalosporin AntibacterialStart: 73-56-8028Bdqitqgw 500 mg 25 Dec, 2009 500MG/2MLciprofloxacin 3 mg/ml / dexamethasone 1 mg/ml otic suspension (20 sources)Corticosteroid, Quinolone AntimicrobialStart: 03-15-2024 End: 89-62-4822Vpcuamjdaqytf-Dexamethasone 0.3-0.1 % drops,suspension Discontinued 4 DROPS OTIC Twice daily March 15, 2024 1:00am April 05, 2024 2:49pmStart: 03-12-2024 End: 26-02-7316Gqxseqti 0.3%-0.1% Susp-Otic 4 drop(s), Otic, BID for 7 day(s), 7.5 mL, Refill(s) 0, [facility], 152, cm, 03/12/24 21:32:00 EST, Height/Length Dosing, 108, kg, 03/12/24 21:32:00 EST, Weight Dosing Start Date: 03/12/24 Stop Date: 03/19/24 Status: OrderedStart: 05-07-2023 End: 39-99-6008Nsbmlkeesaoda-Dexamethasone 0.3-0.1 % drops,suspension Discontinued 4 DROPS EAR-LEFT Q12H May 07, 2023 1:00am May 12, 2023 12:10pmStart: 05-07-2023 End: 58-12-6493Jajtsjodgociz-Dexamethasone Discontinued 4 DROPS EAR-LEFT Q12H May 07, 2023 1:00am May 12, 2023 12:10pmStart: 05-07-2023 End: 71-33-5043Eyzvffgdjhgfb-Dexamethasone Discontinued 4 DROPS EAR-LEFT Q12H May 07, 2023 12:00am May 12, 2023 11:10amStart: 05-07-2023 Ciprofloxacin-Dexamethasone Active 4 DROPS EAR-LEFT Q12H May 07, 2023 12:00amStart: 05-05-2023 End: 41-21-6745qqoiuqiyiuijx-dexAMETHasone (CiproDEX) otic suspension Indications: Acute diffuse otitis externa ofleft ear Administer 4 drops into affected ear(s) in the morning and 4 drops before bedtime. Do all this for 7 days. 7.5 mL 0 05/05/2023 05/12/2023 ActiveCiprofloxacin-Dexamethasone 0.3-0.1 % drops,suspension (10 sources)Start: 03-15-2024 End: 30-49-1402Ejsfrmddclfqx-Dexamethasone 0.3-0.1 % drops,suspension Discontinued 4 DROPS OTIC Twice daily March 15, 2024 1:00am April 05, 2024 2:49pmStart: 03-15-2024 End: 21-73-3132Bsnwfecnnohcx-Dexamethasone 0.3-0.1 % drops,suspension Discontinued 4 DROPS OTIC Twice daily March 15, 2024 12:00am April 05, 2024 1:49pmStart: 05-07-2023 End: 88-59-6436Ycypzethegdlh-Dexamethasone 0.3-0.1 % drops,suspension Discontinued 4 DROPS EAR-LEFT Q12H May 07, 2023 1:00am May 12, 2023 12:10pmStart: 05-07-2023 End: 02-75-0680Opqzvzmrtwyjk-Dexamethasone 0.3-0.1 % drops,suspension Discontinued 4 DROPS EAR-LEFT Q12H May 07, 2023 12:00am May 12, 2023 11:10amdiflunisal 500 mg oral tablet (20 sources)Nonsteroidal Anti-inflammatory DrugStart: 11-02-2023 End: 18-93-6182gnko 1 tablet by mouth once dailyDiflunisal 500 mg tablet Discontinued 500 MG PO Daily December 02, 2023 9:30am December 02, 2023 9:33amStart: 11-02-2023 End: 12-23-7614Kmarejktxh Discontinued MG PO November 02, 2023 12:00am December 02, 2023 9:30amStart: 26-38-3021bqog 1 tablet by mouth every twelve hours as needed for paindiflunisal 500 mg Tab 500 mg = 1 tab(s), Oral, q12hr, PRN Pain, # 30 tab(s), Refills(s) 0, Pharmacy: [facility], 152, cm, 10/23/23 22:39:00 EDT, Height/Length Dosing, 111.2, kg, 10/23/23 22:39:00 EDT, Weight Dosing Start Date: 10/23/23 Status: OrderedDULoxetine 60 mg delayed release oral capsule (20 sources)Serotonin and Norepinephrine Reuptake InhibitorStart: 07-14-2023 End: 92-28-7942urjc 1 capsule by mouth once dailyDuloxetine 60 mg capsule,delayed release(DR/EC) Discontinued 60 MG PO Daily 90 90 1 August 26, 2023 10:55am December 02, 2023 9:33amStart: 06-23-2022 End: 14-53-0088avzf 1 capsule by mouth once dailyDuloxetine 30 mg capsule,delayed release(DR/EC) Discontinued 30 MG PO Daily July 28, 2022 12:00am May 11, 2023 6:38pmStart: 06-23-2022 End: 84-93-1940lmho 1 capsule by mouth once dailyDuloxetine 40 mg capsule,delayed release(DR/EC) Discontinued 40 MG PO Daily May 11, 2023 1:00am July 14, 2023 8:40am FreeTextSi capsule Orally Once a day; Note: Source Status: Taking; Refills: 3; Qty: 90 Capsule; Provider: Adrienne Payton ergocalciferol 0.05 mg oral capsule (20 sources)Provitamin D2 CompoundStart: 12-02-2023 End: 55-30-5715nywk 1 capsule by mouth once dailyErgocalciferol (Vitamin D2) 50 mcg (2,000 unit) capsule Discontinued 50 MCG PO Daily 90 90 3 December 02, 2023 10:09am July 25, 2024 3:02pmStart: 07-14-2023 End: 20-76-0591sflv 1 capsule by mouth every weekErgocalciferol (Vitamin D2) 1,250 mcg (50,000 unit) capsule Discontinued 1250 MCG PO every week 12 84 0 July 14, 2023 12:00am December 02, 2023 10:10amescitalopram 10 mg oral tablet (14 sources)Serotonin Reuptake InhibitorStart: 05-19-2024 End: 67-05-2572vbrx 1 tablet by mouth once dailyEscitalopram Oxalate 10 mg tablet Discontinued 10 MG PO Daily 90 1 May 19, 2024 3:04pm 2024 3:02pm March 2024Start: 02-24-2024 End: 06-68-6216dibr 1 tablet by mouth once dailyEscitalopram Oxalate (Lexapro) 5 mg tablet Discontinued 5 MG PO Daily 30 February 24, 2024 1:00am May 19, 2024 3:06pmfluticasone propionate 0.05 mg/actuat metered dose nasal spray (20 sources)CorticosteroidStart: 07-28-2022 End: 46-73-5797Rwepcyzqvuz Propionate 50 mcg/actuation spray,suspension Discontinued 1 SPRAY INTRANASAL Daily July 28, 2022 12:00am May 07, 2023 8:35pmStart: 96-07-4338wfhj 2 spray(s) nasal route once dailyFluticasone Propionate 50 MCG/ACT 2 sprays Nasally Once a day for 14 day(s) Dec, Not-TakinghydroCHLOROthiazide 12.5 mg / lisinopril 20 mg oral tablet (20 sources)Thiazide Diuretic, Angiotensin Converting Enzyme InhibitorStart: 07-28-2022 End: 33-44-8953oyeq 2 tablets by mouth once dailyLisinopril-Hydrochlorothiazide 20-12.5 mg tablet Discontinued 2 TAB PO Daily 180 90 December 02, 2023 10:11am November 01, 2024 8:18amtake 2 tablets by mouth once dailyLisinopril- hydroCHLOROthiazide 20-12.5 MG 2 tablet Orally Once a day Activetake 2 tablets by mouth every twenty-four hourshydrocortisone 5 mg/ml topical cream (20 sources)CorticosteroidStart: 05-11-2023 End: 45-86-6356Khkvvthvmibgcg 0.5 % cream Discontinued 1 APPLIC TOPICAL Twice daily as needed for allergic reaction May 11, 2023 1:00am July 25, 2024 3:02pmStart: 55-30-1808Mxyhodictoanho 0.5 % lotn Twice daily 02/23/2023 ActiveStart: 24-56-9309Nmmvtlahjfqvmb 0.5 % 1 application Externally Twice a day for 14 days Jan, ActiveStart: 05-03-3869Ukzgvjdeseszxw 0.5 % 1 application Externally Twice a day for 14 days Jan, ActivehydrOXYzine pamoate 25 mg oral capsule (8 sources)AntihistamineStart: 02-24-2024 End: 46-26-1707dqxx 1 capsule by mouth twice daily as needed for anxiety Hydroxyzine Pamoate (Vistaril) 25 mg capsule Discontinued 25 MG PO Twice daily as needed for anxiety 14 7 0 February 24, 2024 1:00am June 13, 2024 10:37am Insulin [place] (Disposable) (20 sources)Start: 05-11-2023 End: 43-73-3114Avbjubv [place] (Disposable) Discontinued 0 .Route May 11, 2023 6:51pm May 12, 2023 12:54pm 30G X 5 MMStart: 05-11-2023 End: 19-89-9370Qtnjzqd [place] (Disposable) Discontinued 0 .Route May 11, 2023 5:51pm May 12, 2023 11:54am 30G X 5 MMStart: 45-27-7712Vikchbe [place] (Disposable) Active 0 .Route May 11, 2023 5:51pm 30G X 5 MMStart: 05-11-2023 End: 00-92-1759Arpeyev [place] (Disposable) Discontinued 0 .Route May 11, 2023 1:00am May 11, 2023 6:52pm As directedStart: 05-11-2023 End: 19-10-2028Ktidwbq [place] (Disposable) Discontinued 0 .Route May 11, 2023 12:00am May 11, 2023 5:52pm As directedInsulin [place] (Disposable) 30 X 3/4 needle (16 sources)Start: 05-11-2023 End: 62-18-9672Qltaviu [place] (Disposable) 30 X 3/4 needle Discontinued 0 .Route May 11, 2023 6:51pm May 12, 2023 12:54pm 30G X 5 MMStart: 05-11-2023 End: 93-81-6721Iqbrqrv [place] (Disposable) 30 X 3/4 needle Discontinued 0 .Route May 11, 2023 5:51pm May 12, 2023 11:54am 30G X 5 MMStart: 05-11-2023 End: 82-18-8558Bwhfvis [place] (Disposable) 30 X 3/4 needle Discontinued 0 .Route May 11, 2023 1:00am May 11, 2023 6:52pm As directedStart: 05-11-2023 End: 86-77-7472Upaqnsl [place] (Disposable) 30 X 3/4 needle Discontinued 0 .Route May 11, 2023 12:00am May 11, 2023 5:52pm As directed lamoTRIgine 25 mg oral tablet (6 sources)Mood Stabilizer, Anti-epileptic AgentStart: 05-19-2024 End: 60-18-0776flbx 2 tablets by mouth once dailyLamotrigine (Lamictal) 25 mg tablet Discontinued 50 MG PO Daily 60 30 0 May 19, 2024 1:00am July 25, 2024 3:02pm Psychiatry March 2024levoFLOXacin 750 mg oral tablet (20 sources)Quinolone AntimicrobialStart: 05-07-2023 End: 61-75-7741eujh 1 tablet by mouth once dailyLevofloxacin 750 mg tablet Discontinued 750 MG PO Daily 10 10 May 07, 2023 1:00am June 04, 2023 1:27pm3 ml liraglutide 6 mg/ml pen injector (20 sources)GLP-1 Receptor AgonistStart: 07-25-2024 End: 87-43-9258yqozce 0.6 mg by subcutaneous injection once daily, then inject 1.2 mg by subcutaneous injection once daily, then inject 1.8 mg by subcutaneous injection once dailyLiraglutide (Victoza 3-Lele) 0.6 mg/0.1 mL (18 mg/3 mL) pen injector Discontinued 1.8 MG SUBCUT .COMPLEX 9 2 September 12, 2024 12:00am October 27, 2024 8:53am 0.6 mg sq qd x 7; then 1.2 mg QD x 7, then 1.8mg qd ongoing; Branded VICTOZA not availableStart: 05-11-2023 End: 44-78-8623Tnpkiffmpmc (Victoza 2-Lele) 0.6 mg/0.1 mL (18 mg/3 mL) pen injector Discontinued 1.8 MG SUBCUT Daily May 11, 2023 1:00am June 04, 2023 12:51pm FreeTextSi.8 mg Subcutaneous daily; Note: Source Status: Refill; Refills: 1; Qty: 3 pack; Provider: Susanne Kruse LStart: 01-06-2023 inject 0.6 mg by subcutaneous injection once daily, then inject 0.6 mg by subcutaneous injection every week, then inject 1.8 mg by subcutaneous injection once dailyVictoza 18 MG/3ML Take 0.6 mg daily and if no side effects go up by 0.6 mg weekly up to a total of 1.8 mg Subcutaneous daily for 30 days Dec, Activeinject 1.8 mg by subcutaneous injection once dailyVictoza 18 MG/3ML 1.8 mg Subcutaneous daily for 30 days Activemeloxicam 15 mg oral tablet (4 sources)Nonsteroidal Anti-inflammatory DrugStart: 01-13-2023 End: 19-55-8580cdcbbvoki (Mobic) 15 MG tablet 1 (one) time each day at the same time 01/13/2023 04/01/2024 Discontinued (Med list cleanup)24 hr metFORMIN hydrochloride 500 mg extended release oral tablet (20 sources)BiguanideStart: 05-11-2023 End: 08-85-6654rsaf 1 tablet by mouth once daily at breakfastMetformin 500 mg tablet extended release 24 hr Discontinued 500 MG PO Daily May 11, 2023 1:00am May 12, 2023 12:11pm FreeTextSi tablet with breakfast Orally Once a day; Note: SourceStatus: Refill; Refills: 1; Provider: Susanne Mehta Start: 04-07-2023 End: 75-54-5402ytlm 1 tablet by mouth every twenty-four hours at mealtime metFORMIN XR (Glucophage-XR) 500 MG 24 hr tablet Take 500 mg by mouth in the morning. Take with meals. 04/07/2023 04/01/2024 Discontinued (Med list cleanup) Start: 33-68-2732pcmp 1 tablet by mouth every twenty-four hoursmetFORMIN HCl ER 500 MG 1 tablet with breakfast Orally Once a day for 30 day(s) Sep, ActivemetroNIDAZOLE 500 mg oral tablet (20 sources)Nitroimidazole AntimicrobialStart: 05-07-2023 End: 64-13-4654swsy 1 tablet by mouth four times dailyMetronidazole 500 mg tablet Discontinued 500 MG PO Four times daily 40 10 0 May 07, 2023 1:00am June 04, 2023 1:27pmmupirocin 0.02 mg/mg topical ointment (20 sources)RNA Synthetase Inhibitor AntibacterialStart: 07-07-2018 End: 42-41-6489Girczlyfa 2 % ointment Discontinued 1 APPLIC TOPICAL Twice daily 22 0 July 07, 2018 12:00am July 28, 2022 1:33pmnaproxen 500 mg oral tablet (20 sources)Nonsteroidal Anti-inflammatory DrugStart: 01-28-2010 End: 80-02-1154gcrr 1 tablet by mouth twice dailyNaproxen 500 mg tablet Discontinued 500 MG PO Twice daily April 05, 2024 1:00am April 05, 2024 2:59pmnortriptyline 25 mg oral capsule (5 sources)Tricyclic AntidepressantStart: 08-10-2024 End: 97-34-4268ejgu 1 capsule by mouth once daily at bedtimeNortriptyline (Pamelor) 25 mg capsule Discontinued 25 MG PO Daily at bedtime 30 0 September 05, 2024 12:00am December 09, 2024 9:58am Neuro July 2024omeprazole 40 mg delayed release oral capsule (20 sources)Proton Pump InhibitorStart: 05-11-2023 End: 76-51-7316qyoq 1 capsule by mouth once dailyOmeprazole 40 mg capsule,delayed release(DR/EC) Discontinued 40 MG PO Daily May 11, 2023 1:00am July 25, 2024 3:02pm FreeTextSi capsule 30 minutes before morning meal Orally Once a day;Note: Source Status: Taking; Refills: 0; Qty: 90 capsules; Provider: Adrienne ROMEtart: 94-76-3236cdsy 1 capsule by mouth once dailyOmeprazole 40 MG 1 capsule 30 minutes before morning meal Orally Once a day for 90 days Jan, ActiveStart: 02-14-2022 End: 95-40-3224eult 1 capsule by mouth once dailyOmeprazole 20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 in WT: 104.2 kg WT: 229.721 lb BMI: 45.1 General: generally ill appearing but in no acute distress Eyes: Pupils equal, round, and reactive to light. Conjunctivae and sclerae normal, and extraocular movements intact Ears: No deformity or lesion of external ear. Canals and TM appear normal bilaterally. TM???s intact, not inflamed, with normal light reflex. Hearing grossly normal to conversational speech Nose: moderate nasal mucosa inflammation and edema Mouth: Mucous membranes moist. Normal oropharynx, and posterior pharynx without lesions or exudates. Tongue normal Neck: shotty anterior cervical nodes bilaterally Lungs: clear to auscultation throughout, no wheezing, no rales. No respiratory distress Cardio: regular rate and rhythm, no murmur Abdomen: soft, nondistended, BS normal and active x4. Denies tenderness. No guarding or grimacing Musculoskeletal: not assessed Extremity: not assessed Neurologic: not assessed Skin: No rashes, ulcerations, or suspicious lesions Mental Status: Alert and oriented x3. Normal mood and affect Assessment/Plan Rapid COVID and strep testing done in office today, negative for COVID and strep. We will send a strep culture and follow-up on results if positive. Discussed with patient that given symptoms and duration as well as assessment findings most likely experiencing a viral URI, recommended ruwz-xrh-idhlldh medications as needed, rest and hydration. Work note provided. 1. Viral URI (J06.9: Acute upper respiratory infection, unspecified) Discussed exam and hx are consistent with viral illness. Advised of typical duration. Discussed antibiotics unfortunately do not treat viral illnesses, it will take time to run course- usually 7-14 days. Fluids/rest encouraged, PRN tylenol/ibuprofen for any pain. May use Bromfed for symptomatic tx.Follow up with PCP if not improving over next 7-10 days or significantly worsening symptoms. Patient verbalized understanding of tx plan. Ordered: brompheniramine/dextromethorphan/PSE, 5 mL, Oral, QID for cold symptoms, 200 mL, Refill(s) 0, [facility] #[facility], 152, cm, 01/24/25 12:06:00 EDT, Height/Length Dosing, 104.2, kg, 01/24/25 12:06:00 EDT, Weight Dosing 2. Cough (R05.9: Cough, unspecified) Ordered: brompheniramine/dextromethorphan/PSE, 5 mL, Oral, QID for cold symptoms, 200 mL, Refill(s) 0, [facility] #[facility], 152, cm, 01/24/25 12:06:00 EDT, Height/Length Dosing, 104.2, kg, 01/24/25 12:06:00 EDT, Weight Dosing Rapid COVID POC 96675 Rapid Strep POC 12440 Throat Culture 3. BMI 45.0-49.9, adult (Z68.42: Body mass index [BMI] 45.0-49.9, adult) Follow-up With When Contact Information JUANITO DELEON CNP [address] [place] [address]- [phone] Additional Instructions: Patient Education Upper Respiratory Infection, Adult, Aaho-zf-Tovp Problem List/Past Medical History Ongoing Morbid obesity with BMI of 45.0-49.9, adult Smoker Historical H/O: migraine Knee pain Procedure/Surgical History childbirth (05/01/2008), wisdom teeth extraction (01/28/2007). Medications amLODIPine 10 mg Tab Bromfed DM oral syrup, 5 mL, Oral, QID, PRN hydrochlorothiazide-lisinopril 12.5 mg-20 mg Tab Allergies Vicodin (rash) Social History Alcohol - Denies Alcohol Use, 01/17/2010 Current, 1-2 times per month, 03/12/2024 Substance Abuse - Denies Substance Abuse, 01/17/2010 Tobacco - Denies Tobacco Use, 01/17/2010 Former smoker, quit more than 30 days ago Tobacco Use:., 01/24/2025 Immunizations Vaccine Date Status Comments SARS-CoV-2 (COVID-19) mRNA BNT-162b2 vax 03/01/2021 Recorded influenza virus vaccine, inactivated 01/27/2021 Recorded SARS-CoV-2 (COVID-19) mRNA BNT-162b2 vax 04/06/2020 Recorded 2025-01-24: TPVAL SARS-CoV-2 (COVID-19) (more content not included)...[facility] CenterComment on above:Result Comment: Electronically Signed By: Khushbu RIVAS, Edgard\.br\Date and Time Signed: 01/24/25 12:37 EDTProvider Letteron 01-24-2025 Provider LetterProvider Letter January 24, 2025 LISANDRA SOLIS [address] [place] [address] : 1990 To Whom It May Concern, Janet Solis Please excuse above patient from work. Date of Illness: From: _01/24/2025 To: _ May Return to Work On:01/25/2025 Restrictions: _ Comments: _ Sincerely, Edgard Ríos [address] [address] LzzzabKqknttBlanchard Valley Health SystemQuantiferon-TB Plus (Client Incubated)on 31-26-6920Ullqi interferon background IA Qn (Bld)0.04 International_Unit/mLInvalid Interpretation [facility] Comment on above:Performed By: #### [id number] #### [facility] [address] tuberculosis stim IFN-g by CD4+ CD8+ T-cells corrected for background Qn (Bld)0.04 International_Unit/mLInvalid Interpretation [facility] CenterComment on above:Performed By: #### [id number] #### [facility] [address] tuberculosis stim IFN-g by CD4+ T-cells corrected for background Qn (Bld)0.05 International_Unit/mLInvalid Interpretation CodeScci Hospital LimaComment on above:Performed By: #### [id number] #### [facility] [address] [place] [address]. tuberculosis stim IFN-g Ql (Bld) [Interp]NegativeInvalid Interpretation CodeNegativeScci Hospital LimaComment on above:Result Comment: No response to M tuberculosis antigens detected. Infection with M tuberculosis is unlikely, but high risk individuals should be considered for additional testing (ATS/IDSA/CDC Clinical Practice Guidelines, 2017). The reference range is an Antigen minus Nil result of <0.35 IU/mL. The specimen received for QuantiFERON testing was incubated by the ordering institution. Specific procedures outlined in our Directory of Services and in the package insert for the QuantiFERON Gold (In Tube) test must be followed to enable for proper stimulation of cells for the production of interferon gamma. Chemiluminescence immunoassay methodology Performed at: [employer] [id number] PhD Thierry Garciaformed By: #### [id number] #### [address] [address]Vwukuor stimulated gamma interferon corrected for background Qn (Bld)>10.00Invalid Interpretation CodeScci Hospital LimaComment on above:Performed By: #### [id number] #### [facility] [address] [place] [address]Kmqrizx comment (Unsp spec) [Interp]CommentInvalid Interpretation CodeScci Hospital LimaComment on above:Result Comment: QuantiFERON-TB Gold Plus is a qualitative indirect test for M tuberculosis infection (including disease) and is intended for use in conjunction with risk assessment, radiography, and other medical and diagnostic evaluations. The QuantiFERON-TB Gold Plus result is determined by subtracting the Nil value from either TB antigen (Ag) value. The Mitogen tube serves as a control for the test.Performed By: #### [id number] #### [facility] [address] [place] [address]Lbk Bs Abon [id number] surface Ab Ql (S)EquivocalInvalid Interpretation CodeScci Hospital LimaComment on above:Result Comment: Non Reactive: Not immune to HBV infection. Equivocal: Unable to determine if anti-HBs is present at levels consistent with immunity. Reactive: Anti-HBs concentration detected at greater than 10 mIU/mL. Individual is considered to be immune to infection with HBV. Verified by repeat analysis Performed at: [address] [id number] PhD Thierry GonzalezPerformed By: #### [id number] #### [facility] [address] [place] [address]Xjdtswd/Mumps/Rubella Immunityon 22-17-6773HwB IgG IA Qn (S) {index_val}Invalid Interpretation CodeImmune >16.4FCleveland Clinic Comment on above:Result Comment: Negative <13.5 Equivocal 13.5 - 16.4 Positive >16.4 Presence of antibodies to Rubeola is presumptive evidence of immunity except when acute infection is suspected.Performed By: #### [id number] #### [facility] [address] [place] [address]ExA IgG IA Qn (S)<9.0LowImmune >10.9[facility] Comment on above:Result Comment: Negative <9.0 Equivocal 9.0 - 10.9 Positive >10.9 A positive result generally indicates past exposure to Mumps virus or previous vaccination. Performed at: [facility] [address] [place] [id number] PhD Thierry GonzalezPerformed By: #### [id number] #### [facility] [address] [place] [address]Pwamdmp virus IgG Qn (S)3.57 [IU]/mLInvalid Interpretation Code Immune >0.99[facility]imaComment on above:Result Comment: Non- immune <0.90 Equivocal 0.90 - 0.99 Immune >0.99Performed By: #### [id number] #### [facility] [address] [place], [place] [address]Uvbcr IgGon 10-48-4214KHR IgG IA Ql (S)ReactiveInvalid Interpretation CodeNon ReactiveFisher Johns Hopkins HospitalComment on above: Result Comment: Please note reference interval change A Reactive result is considered evidence of immunity to VZV. Reactive indicates that VZV IgG was detected consistent with previous infection and/or vaccination. A Non Reactive result indicates that VZV IgG was not detected suggesting that immunity has not been acquired. Performed at: [facility] [id number] PhD Thierry Garciaformed By: #### [id number] #### [facility] [address] [place], [place] [address]Tb Panel Informationon 13-55-5328Uqljk Chorionic Gonadotropin, QualNegativeNEGATIVEMorrow County HospitalHbA1c HPLC (Bld) [Mass fraction]on 02-52-0694BmD6n (Bld) [Mass fraction]Hemoglobin A1c/Hemoglobin.total in Blood by HPLCMorrow County HospitalCNOVon 84-08-0719RLDYLijoch Visit (OTOLIN) LISANDRA SOLIS ([id number]) 1990 F Date Time Provider Department 05/06/24 1:25 PM JUDE APONTE During your visit today, we recorded the following information about you: Jude Aponte PA-C 05/06/2024 1:25 PM Addendum Use the acetic acid (Vosol) 4 drops twice daily for 7 days Follow up in 1-2 weeks if no improvement Jude Aponte PA-C 05/06/2024 2:39 PM Signed CC: Lisandra Solis is a 34 year old female seen as a return patient with a history of recurrent ear infections. Presents for left ear pain IMPRESSION, PLANS and RECOMMENDATIONS: (H60.312) Acute diffuse otitis externa of left ear (primary encounter diagnosis) ~otorrhea in left ear - removed with suction. Canal is mildly irritated underneath. TM normal ~prescribed Vosol 4 drops left ear twice daily for 7 days ~follow up with me in 1-2 weeks if no improvement HPI: Lisandra is a 34 year old who reports left ear pain. Recalls she had 2 ear infections since she saw me last in June. These are characterized by severe pain with fluttery hearing. Denies otorrhea. Known TMJ. Current pain is felt in left tragus region - does not feel like an active infection. ALLERGIES Allergen Reactions - Vicodin [Hydrocodon* Itching Current Outpatient Medications Medication Sig - amLODIPine (NORVASC) 2.5 mg tablet Take 1 tablet by mouth once daily. - hydrochlorothiazide (HYDRODIURIL, ESIDRIX) 25 mg tablet Take 25 mg by mouth once daily. - acetic acid (VOSOL) 2 % otic solution Use 4 Drops in the left ear two times a day. - Hydrocortisone 0.5 % lotn Twice daily (Patient not taking: Reported on 05/06/2024) - naproxen (NAPROSYN) 500 mg tablet Take 500 mg by mouth twice daily with meals. (Patient not taking: Reported on 05/06/2024) No current facility-administered medications for this visit. No past medical history on file. No past surgical history on file. Social History: Social History Tobacco Use - Smoking status: Some Days Current packs/day: 0.00 Types: Cigarettes Last attempt to quit: 03/06/2010 Years since quittin.1 - Smokeless tobacco: Never Substance Use Topics - Alcohol use: No - Drug use: No PHYSICAL EXAM: On physical examination Lisandra is a well-developed, well nourished female. LMP 06/24/2015 No weight on file for this encounter. Cranial nerves II-XII are grossly intact Mental status revealed patient to be alert and oriented. Mood is appropriate. Details of the physical examination: HEAD AND FACE: Physical examination of the head, neck, external nose, external ears, mouth and face fails to demonstrate any significant abnormality or asymmetry to critical face to face observation. Normocephalic, no masses, lesions, tenderness or abnormalities. SKIN: Skin color, texture, turgor normal, no suspicious rashes or lesions EARS: Right external ear normal Right EAC normal Right TM normal Left external ear normal Left EAC has otorrhea - removed with suction - underlying canal is mildly irritated Left TM normal after cleaning Jude Aponte PA-C Medical Decision Making: Problems: Low: Acute, uncomplicated illness or injury Risk: Low: Low risk from testing/treatment Moderate: Drug management Medical Decision Making Level: 3 - Low Allergies As of Date: 05/06/2024 Noted Allergy Reaction VICODIN (HYDROCODONE-ACETAMINOPHE*07/11/2015 9 - Itching Date Reviewed: 05/06/2024 Reviewed by: Urmila López MA - Fully Assessed Reason for Visit: Established Patient Follow-Up [[id number]] Cmt: Frequent ear infections Primary Visit Diagnosis:Acute diffuse otitis externa of left ear [H60.312] Order(s):acetic acid (VOSOL) 2 % otic solutionUse 4 Drops in the left ear two times a day.Disp: 15 mLRfl: 1 Prescriptions as of 05/06/2024 - acetic acid (VOSOL) 2 % otic solution Use 4 Drops in the left ear two times a day. - Hydrocortisone 0.5 % lotn Twice daily - amLODIPine (NORVASC) 2.5 mg tablet Take 1 tablet by mouth once daily. - naproxen (NAPROSYN) 500 mg tablet Take 500 mg by mouth twice daily with meals. - hydrochlorothiazide (HYDRODIURIL, ESIDRIX) 25 mg tablet Take 25 mg by mouth once daily. Problem List As Of Date 05/06/2024 Noted Resolved [Z34.90] 07/25/2010 07/11/2015 Ovarian cyst, right [N83.201] 07/25/2010 07/11/2015 (spontaneous vaginal delivery) x 2 [O80] 07/11/2015 H/O section x 1 previa. [Z98.891] 07/11/2015 Encounter for post Essure sterilization check 2*07/11/2015 Other instructions from your clinician: Use the acetic acid (Vosol) 4 drops twice daily for 7 days Follow up in 1-2 weeks if no improvement Prescriptions ordered this encounter Disp Refills Start End ACETIC ACID 2 % EAR SOLUTION 15 mL 1 05/06/2024 Route: LEFT EAR Sig: Use 4 Drops in the left ear two times a day. Encounter Status:Closed by JUDE APONTE (more content not included)...[facility] conon [id number] cervical spine wo [facility] [place] [address] [address] CT Scan Report Signed Patient: Lisandra Solis MR#: [id number] 54 : 1990 Acct:[id number] Age/Sex: 34 / F ADM Date: 05/02/24 Loc: [facility] Room: Type: [facility] CLI Attending Dr: Juanito Deleon DREDGING INSPECTOR Copies to: Juanito Deleon APRN Ordering Provider: Juanito Deleon APRN Date of Service: 05/02/24 CT/CT cervical spine wo con: M54.12 - Radiculopathy, cervical region CT CERVICAL SPINE WITHOUT CONTRAST WITH 3D RECONSTRUCTIONS: CLINICAL HISTORY: Neck pain right upper extremity radiculopathy. COMPARISON: CT cervical spine 06/28/2018 TECHNIQUE: Spiral axial unenhanced images were obtained through the cervical spine. Sagittal, coronal and 3D volume-rendered reconstructions were also reviewed. This CT exam was performed using one or more following dose reduction techniques: Automated exposure control, adjustment of the mA and/or kV according to patient size, or use of iterative reconstruction technique. FINDINGS: No fracture. Vertebral body heights appear maintained. Mild spondylosis C5-C7. Facet joints demonstrate minimal degenerative change. No prevertebral soft tissue swelling. Visualized lung apices demonstrate no acute process. CT/CT cervical spine wo con IMPRESSION: NO CERVICAL SPINE FRACTURE Impression dictated by: Jeet Pascual Jr., D.OErin05/02/2024 4:27 PM Dictation Location: [place] [address] Transcribed By: [facility] 05/02/241626 Dictated By: Jeet Pascual Jr, DO 05/02/241625 Signed By: 05/02/24 1627[facility] Physician GroupED Note-Physicianon [id number] Note-PhysicianED Note-Physician Basic Information Time Seen: Deidra Bell PA-C 03/31/2024 14:43 Chief Complaint pt c/o Rsided neck pain that radiates doiwn R arm and into breast. pt states that this started 2 days ago. pt also reports tingling in R hand. History of Present Illness 34-year-old female presents ER with complaints of atraumatic right shoulder pain. Patient is complaining of pain in the right shoulder that radiates down the arm. Pain started 2 days ago. No known injury or trauma. Pain is made worse with movement of the arm. Has not noted any rash or skin changes,no bruising. Denies any similar pain in the past. Reports intermittent numbness and tingling in thehand but this is not consistent. Pain is localized mostly to the right shoulder. Review of Systems All organ systems are reviewed. Pertinent positive and negative findings as mentioned in the HPI. Physical Exam Vitals & Measurements T: 36.2 ???C(Oral) HR: 63(Peripheral) RR: 18 BP: 179/96 SpO2: 99% HT: 152 cm WT: 108 kg BMI: 46.75 GENERAL APPEARANCE: Well developed, well nourished, alert and cooperative, and appears to be in no acute distress. HEAD: normocephalic, atraumatic EYES: PERRL, EOMI. Vision is grossly intact. EARS: External auditory canals clear, hearing grossly intact. NOSE: No nasal discharge. THROAT: Oral cavity and pharynx normal. Oral mucosa moist. MUSCULOSKELETAL: Adequately aligned spine. ROM intact spine and extremities. Patient has full passive range of motion of the right shoulder but has pain with flexion, extension, abduction and abduction. Patient has increased pain with empty can test. Point tenderness over the right AC joint of the shoulder. Micro Computer Specialist strength equal and intact, patient neurovascularly intact throughout. NEUROLOGICAL: CN grossly intact. Strength and sensation symmetric and intact throughout. SKIN: Skin normal color, texture and turgor with no lesions or eruptions. Assessment/Plan 1. Shoulder pain (M25.519: Pain in unspecified shoulder) Orders: ketorolac, 60 mg = 2 mL, Injection, IntraMuscular, Once, Stop date 03/31/24 15:58:00 EST, STAT, Start date 03/31/24 15:58:00 EST, 03/31/24 15:58:00 EST methocarbamol, 750 mg = 1 tab(s), Oral, TID, X 3 day(s), # 9 tab(s), Refills(s) 0, Pharmacy: [facility] #24, 152, cm, 03/31/24 14:31:00 EST, Height/Length Dosing, 108, kg, 03/31/24 14:31:00 EST, Weight Dosing naproxen, 500 mg = 1 tab(s), Oral, BID, # 14 tab(s), Refills(s) 0, Pharmacy: [facility], 152, cm, 03/31/24 14:31:00 EST, Height/Length Dosing, 108, kg, 03/31/24 14:31:00 EST, Weight Dosing orphenadrine, 100 mg = 1 tab(s), Tab-ER, Oral, Once, Stop date 03/31/24 15:57:00 EST, STAT, Start date 03/31/24 15:57:00 EST, 03/31/24 15:57:00 EST XR Shoulder Complete Right 34-year-old female presents here with complaints of atraumatic right shoulder pain. In the ER patient is afebrile vitals are stable, no acute distress. X-ray shows no acute osseous abnormality. Most likely musculoskeletal in nature. Patient treated with Toradol and orphenadrine in the ER with improvement of symptoms. Will discharge home with prescription for naproxen and Robaxin. Patient to follow orthopedics and is to return to the ER with any new or worsening symptoms. Patient voices understanding and is agreeable to plan Medications Administered Given ketorolac 30 mg/mL Inj 1 mL, 60 mg, IntraMuscular orphenadrine 100 mg ER Tab, 100 mg, Oral Disposition Plan Patient Discharge Condition Improved, stable Discharge Disposition To home Discharge Prescription List Prescriptions Naprosyn 500 mg Tab, 500 mg= 1 tab(s), Oral, BID Robaxin-750 oral tablet, 750 mg= 1 tab(s), Oral, TID Follow-up With When Contact Information Anirudh Armas In 3 days 04/03/[address] [place], [place] [address] Business (1) Additional Instructions: Patient Education Shoulder Pain Shoulder Range of Motion Exercises Attestation Patient was treated and evaluated by the Physician Emergency Veterinary Technician. The attending physician was in the Emergency Department at all times and supervised care. The case was discussed with the attending physician and diagnostics were reviewed as needed. Problem List/Past Medical History Ongoing Smoker Historical H/O: migraine Knee pain Procedure/Surgical History childbirth (05/01/2008), wisdom teeth extraction (01/28/2007). Medications Inpatient No active inpatient medications Home Bromfed DM oral syrup, 5 mL, Oral, QID, PRN diflunisal 500 mg Tab, 500 mg= 1 tab(s), Oral, q12hr, PRN Naprosyn 500 mg oral tablet, 1 tab(s), Oral, BID Naprosyn 500 mg Tab, 500 mg= 1 tab(s), Oral, BID Naprosyn 500 mg Tab, 500 mg= 1 tab(s), Oral, BID, PRN Robaxin-750 oral tablet, 750 mg= 1 tab(s), Oral, TID Allergies Vicodin (rash) Social History Alcohol - Denies Alcohol Use, 01/17/2010 Current, 1-2 times per month, 03/12/2024 Substance Abuse - Denies Substance Abuse, 01/17/2010 Tobacco - Denies Toba (more content not included)...[facility] CenterComment on above:Result Comment: Electronically Signed By: Deidra Bell PA-C\.br\Date and Time Signed: 03/31/24 16:22 EST\.br\Electronically Co- Signed By: Joe Cheung MD\.br\Date and Time Co-Signed: 04/05/24 23:03 ESTED Clinical Summaryon [id number] Clinical SummaryED Clinical Summary [place] [address] ED Clinical Summary Person Information Name: LISANDRA SOLIS Liudmila/[facility] Age: 34 Years : 1990 Sex: Female Language: Austrian PCP: JUANITO DELEON CNP Marital Status: Single Phone: [phone] Visit Id: Visit Reason: Arm pain-swelling; Neck pain; NECK PAIN - RIGHT SIDE Speciality: Acuity: 4 Enc Type: Emergency Med Service: Emergency Arrival: 03/31/2024 14:05:56 Discharge: 03/31/2024 16:26:28 LOS: 000 02:21 Checkin: 03/31/2024 14:05:56 Checkout: 03/31/2024 16:26:28 Dispo Type: Home (Routine DC) EVENTS: Event Name Event Status Request Date/Time Start Date/Time Complete Date/Time Arrive Complete 03/31/2024 14:05:56 03/31/2024 14:05:56 03/31/2024 14:05:56 Document Home Meds Request 03/31/2024 14:05:56 Triage Complete 03/31/2024 14:05:56 03/31/2024 14:31:30 03/31/2024 14:31:30 Bed Assign Complete 03/31/2024 14:41:28 03/31/2024 14:41:28 03/31/2024 14:41:28 Dr Exam Complete 03/31/2024 14:41:28 03/31/2024 14:43:12 03/31/2024 14:43:12 RN Exam Complete 03/31/2024 14:41:28 03/31/2024 16:23:31 03/31/2024 16:23:31 Registration Complete 03/31/2024 14:43:12 03/31/2024 14:55:28 03/31/2024 14:55:28 Reg Complete Request 03/31/2024 14:55:28 Reg Bed Request Complete 03/31/2024 14:55:28 03/31/2024 14:55:28 03/31/2024 14:55:28 X-Ray Complete 03/31/2024 15:47:03 03/31/2024 15:49:10 03/31/2024 16:02:13 Meds Admin Complete 03/31/2024 15:58:42 03/31/2024 16:19:38 Wet Read Request 03/31/2024 16:02:13 Discharge Complete 03/31/2024 16:12:42 03/31/2024 16:26:33 03/31/2024 16:26:33 Transfer Complete 03/31/2024 16:26:33 03/31/2024 16:26:33 03/31/2024 16:26:33 ADDRESS: [address] [place] [address] [place] [phone] PHYS DOC NOTES: MEDICAL INFORMATION: Prescriptions Given: New Medications [facility], [address] [facility] [place] [id number], [phone] methocarbamol (Robaxin-750 oral tablet) 1 Tablets By Mouth 3 times a day for 3 Days. Refills: 0. Medications to Continue Taking That Have Changed [facility], [address] [facility] [place] [id number], [phone] START: naproxen (Naprosyn 500 mg Tab) 1 Tablets By Mouth 2 times a day. Refills: 0. Other Medications START: naproxen (Naprosyn 500 mg oral tablet) 1 Tablets By Mouth 2 times a day. START: naproxen (Naprosyn 500 mg Tab) 1 Tablets By Mouth 2 times a day as needed for pain. Refills:0. Medications to Continue with No Changes Other Medications brompheniramine/dextromethorphan/PSE (Bromfed DM oral syrup) 5 Milliliter By Mouth 4 times a day asneeded for cough and congestion. Refills: 0. diflunisal (diflunisal 500 mg Tab) 1 Tablets By Mouth every 12 hours as needed Pain. Refills: 0. PATIENT EDUCATION INFORMATION: Instructions: Shoulder Pain; Shoulder Range of Motion Exercises Follow up: With: Address: [employer]: Anirudh Armas [address] [place] [address] Business (1) In 3 days 04/03/2024 DIAGNOSIS: 1:Shoulder painNormalTrumbull Memorial Hospital CenterED Patient Summaryon 03-31-2024 ED Patient SummaryED Patient Summary [facility] [address], [place] [address] Patient Discharge Instructions Person Information Name: LISANDRA SOLIS Age: 34 Years Arrival Date: 03/31/2024 14:05:56 Discharge Diagnosis: 1:Shoulder pain Primary Care Physician: JUANITO DELEON CNP Provider Information Primary Provider: [employer] Room Operator:Deidra Bell PA-C The exam and treatment you received in the Emergency Department were for an urgent problem and are not intended as complete care. It is important that you follow up with a doctor, nurse practitioner,or physician???s printing assistant for ongoing care. If your symptoms become worse or you do not improve asexpected and you are unable to reach your usual health care provider, you should return to the Emergency Department. We are available 24 hours a day. LISANDRA SOLIS has been given the following list of patient education materials, prescriptions and follow-up instructions: Follow-up Instructions: With: Address: When: Anirudh Armas [address] [place], [place] [address] [employer] ([employer] In 3 days 04/03/2024 In the event that this physician does not participate in your insurance network, please consult with your insurance company to find a nearby participating provider. Patient Education Materials: Shoulder Pain; Shoulder Range of Motion Exercises A MESSAGE TO ALL PATIENTS REGARDING OPIOIDS PRESCRIPTION OPIOIDS: WHAT YOU NEED TO KNOW Prescription opioids can be used to help relieve clgyzxip-de-tyaebu pain and are often prescribed following a [...] as well, even when taken as directed: ??? Tolerance???meaning you might need to take more of the medication for the same pain relief ??? Physical dependence???meaning you have symptoms of withdrawal when a medication is stopped ??? Increased sensitivity to pain ??? Constipation ??? Nausea, vomiting, and dry mouth ??? Sleepiness and dizziness ??? Confusion ??? Depression ??? Low levels of testosterone that can result in lower sex drive, energy, and strength ??? Itching and sweating RISKS ARE GREATER WITH: ??? History of drug misuse, substance use disorder, or overdose ??? Mental health conditions (such as depression or anxiety) ??? Sleep apnea ??? Older age (65 years and older) ??? Avoid alcohol while taking prescription opioids. Also, unless specifically advised by your health care provider, medications to avoid include: ??? Benzodiazepines (such as Xanax or Valium) ??? Muscle relaxants (such as Soma or Flexeril) ??? Hypnotics (such as Ambien or Lunesta) ??? Other prescription opioids KNOW YOUR OPTIONS Talk to your health care provider about ways to manage your pain that don???t involve prescription opioids. Some of these options may actually work better and have fewer risks and side effects. Options may include: ??? Pain relievers such as acetaminophen, ibuprofen, and naproxen ??? Some medication that are also used for depression or seizures ??? Physical therapy and exercise ??? Cognitive behavioral therapy, a psychological, goal-directed approach, in which patients learn how to modify physical, behavioral, and emotional triggers of pain and stress. IF YOU ARE PRESCRIBED OPIOIDS FOR PAIN: ??? Never take opioids in greater amounts or more often than prescribed. ??? Follow up with your primary health care provider. o Work together to create a plan on how to manage your pain. o Talk about ways to help manage your pain that don???t involve prescription opioids. o Talk about any and all concerns and side effects. ??? Help prevent misuse and abuse o Never sell or share prescription opioids. o Never use another person???s prescription opioids. ??? Store prescription opioids in a secure place and out of reach of others (this may include visitors, children, friends, and family). ??? Safely dispose of unused prescription opioids: Find your community drug take-back program or your pharmacy mail-back program, or flush them down the toilet, following guidance from the Food and Drug Administration (www.fda.gov/Drugs/ResourcesForYou). ??? Visit www.cdc.gov/drugoverdose to learn about the risks of opioids abuse and overdose. ??? If you believe you may be struggling with addiction, tell your health child care supervisor and ask(more content not included)...[facility] [place] [facility] CenterXR Shoulder Complete Righton [id number] Shoulder Complete RightExam Date/Time: 03/31/2024 16:02 EST Reason for Exam: Pain, Non Traumatic Report IMPRESSION: NEGATIVE RIGHT SHOULDER. CLINICAL HISTORY: Pain, Non Traumatic COMPARISON: NONE FINDINGS: AP, internal, external rotation, Y and axillary views of the right shoulder demonstrate no evidence of a fracture, dislocation, bone or joint abnormality. Ordering Provider: Deidra Bell FINAL REPORT Dictated: 03/31/2024 4:02 pm Levi Marques MD Signed (Electronic Signature): 03/31/2024 4:02 pm Signed by: Levi Marques MD Transcribed by: WILLY Technologist: NADYA Technical Comments Radiation Dose: Ka,r in mGy = 0 DAP = 0NormalFisher Sulaiman Medical CenterED Note-Physicianon [id number] Note-PhysicianED Note-Physician Basic Information Time Seen: Shashank Naidu PA-C 03/12/2024 21:33 Chief Complaint pt to ER c/o congestion, cough, body aches, and L ear pain that started approx 1 week ago. Pt states seen for ear infection and put on Augmentin, states that ear pain is worsening. Pt also reports surgery on L ankle 1 wk ago. History of Present Illness 33-year-old female reports emerged department with complaints of cough congestion body aches. Reports left ear pain as well. Reports that she was diagnosed with swimmer's ear. Reports placed on Augmentin. Reports has been 7 days without any improvement. States that her significant other is also having body aches, and recently tested positive for COVID. She reports that she has an allergy to the Vicodin. Denies any fevers recently. She states she has tried qzyl-sfp-saqsnmb medications without any relief. Review of Systems No other aggravating or relieving factors no other associated symptoms no other prior treatments orcomplaints. Family: Reviewed and noncontributory Social: lives at home Review of systems negative unless otherwise specified in the HPI. Physical Exam Vitals & Measurements T: 37.0 ???C(Oral) HR: 79(Peripheral) RR: 20 BP: 141/95 SpO2: 98% HT: 152 cm WT: 108 kg BMI: 46.75 General: The patient appears well and in no apparent distress. Patient is resting comfortably on bed. Afebrile Skin: Warm, dry, no pallor noted. Head: Normocephalic, atraumatic Neck: No JVD Eye: PERRLA, EOMI ENT: Moist mucus membranes. The left auditory ear canal is erythematous with debris. Right side is clear with no TM bulging. Cardiovascular: Regular rate. normal peripheral perfusion Respiratory: No respiratory distress. no accessory muscle use. no obvious audible wheezing. Lung sounds clear. Chest Wall: no deformity Musculoskeletal: normal ROM, no deformity, no swelling GI: No obvious distention Neurological: A&O. moves all extremities equal strength and symmetry Psychiatric: Cooperative and appropriate Medical Decision Making MEDICAL DECISION MAKING Number and Complexity of Problems Differential Diagnosis: [] [facility] Data External documents reviewed: [] My EKG interpretation: [] My CT interpretation: [] My X-ray interpretation: [] My Ultrasound interpretation: [] Decision rules/scores evaluated: [] Discussed with: [] Treatment and Disposition ED Course: A 33-year-old female reports emergency department with complaints of continued left-sided ear pain. Reports was diagnosed with swimmer's ear, started on Augmentin. On exam, still has swelling diffusely of the ear canal with debris noted. She is afebrile here, does have COVID exposure andnow having new body aches. Discussed likely having COVID. She was understanding of this. As far as her left otitis externa, patient was started with Ciprodex here in the emergency department as I didplace an ear wick into the left ear canal. Discussed using medications as prescribed. Already on Augmentin. Discussed return precautions. Follow-up with your primary care provider in 3 to 5 days. If symptoms worsen, do not improve, or new symptoms arise please report back to emergency department for further evaluation. The patient was understanding and agreeable to plan moving forward. Code status: [] Assessment/Plan Otitis externa, left (H60.92: Unspecified otitis externa, left ear) Suspected COVID-19 virus infection (Z20.822: Contact with and (suspected) exposure to COVID-19) Orders: brompheniramine/dextromethorphan/PSE, 5 mL, Oral, QID for cough and congestion, 200 mL, Refill(s) 0, [employer] #24, 152, cm, 03/12/24 21:32:00 EST, Height/Length Dosing, 108, kg, 03/12/24 21:32:00 EST, Weight Dosing ciprofloxacin-dexamethasone otic, 4 drop(s), Susp-Otic, Ear-Left, Once, Stop date 03/12/24 21:41:00EST, STAT, Start date 03/12/24 21:41:00 EST ciprofloxacin-dexamethasone otic, 4 drop(s), Otic, BID for 7 day(s), 7.5 mL, Refill(s) 0, [employer] #24, 152, cm, 03/12/24 21:32:00 EST, Height/Length Dosing, 108, kg, 03/12/24 21:32:00 EST, Weight Dosing Medications Administered Given Ciprodex 0.3%-0.1% Susp-Otic, 4 drop(s), Ear-Left Disposition Plan Patient Discharge Condition Stable Discharge Disposition to home Discharge Prescription List Prescriptions Bromfed DM oral syrup, 5 mL, Oral, QID, PRN Ciprodex 0.3%-0.1% Susp-Otic, 4 drop(s), Otic, BID Follow-up With When Contact Information JUANITO DELEON In 3 days 03/15/2024 EST [address] [place] [address] [phone] Business (1) Additional Instructions: Call Dr for diagnosis based follow up Patient Education COVID-19 Otitis Externa Attestation Patient seen and evaluated by the physician printing assistant. Attending physician was present in the emergency department and supervised care. This visit was performed by both the physician and an APC. I performed all aspects of the MDM as documented. This r (more content not included)...[facility] [place] [facility] CenterComment on above:Result Comment: Electronically Signed By: Shashank Naidu PA-C\.br\Date and Time Signed: 03/12/2422:18 EST\.br\Electronically Co-Signed By: Jorden Garcia DO\.br\Date and Time Co-Signed: 03/13/24 03:13 JACQUELYN Clinical Summaryon [id number] Clinical SummaryED Clinical Summary [address] [address] ED Clinical Summary Person Information Name: LISANDRA SOLIS/[facility] Age: 33 Years : 1990 Sex: Female Language: Austrian PCP: JUANITO DELEON CNP Marital Status: Single Phone: [phone] Visit Id: Visit Reason: Body aches; Sinus Pain/Congestion; Cough; Ear pain; BODY ACHES, STUFFY NOSE, EAR PAINSpeciality: Acuity: 3 Enc Type: Emergency Med Service: Emergency Arrival: 03/12/2024 21:23:04 Discharge: 03/12/2024 21:54:54 LOS: 000 00:31 Checkin: 03/12/2024 21:23:04 Checkout: 03/12/2024 21:54:54 Dispo Type: Home (Routine DC) EVENTS: Event Name Event Status Request Date/Time Start Date/Time Complete Date/Time Arrive Complete 03/12/2024 21:23:04 03/12/2024 21:23:04 03/12/2024 21:23:04 Document Home Meds Request 03/12/2024 21:23:04 Triage Complete 03/12/2024 21:23:04 03/12/2024 21:32:15 03/12/2024 21:32:15 Bed Assign Complete 03/12/2024 21:25:39 03/12/2024 21:25:39 03/12/2024 21:25:39 Dr Exam Complete 03/12/2024 21:25:39 03/12/2024 21:33:33 03/12/2024 21:33:33 RN Exam Complete 03/12/2024 21:25:39 03/12/2024 21:33:45 03/12/2024 21:33:45 Registration Complete 03/12/2024 21:25:58 03/12/2024 21:25:58 03/12/2024 21:25:58 Reg Complete Request 03/12/2024 21:25:58 Reg Bed Request Complete 03/12/2024 21:25:58 03/12/2024 21:25:58 03/12/2024 21:25:58 Registration Request 03/12/2024 21:33:33 Dr Exam Complete 03/12/2024 21:38:41 03/12/2024 21:38:41 03/12/2024 21:38:41 Meds Admin Complete 03/12/2024 21:41:51 03/12/2024 21:47:41 Discharge Complete 03/12/2024 21:44:26 03/12/2024 21:54:59 03/12/2024 21:54:59 Transfer Complete 03/12/2024 21:55:00 03/12/2024 21:55:00 03/12/2024 21:55:00 AD[address]ESS: [address] [place] [phone] PHYS DOC NOTES: MEDICAL INFORMATION: Prescriptions Given: New Medications [employer] #24, [address] [place] [phone], [phone] brompheniramine/dextromethorphan/PSE (Bromfed DM oral syrup) 5 Milliliter By Mouth 4 times a day asneeded for cough and congestion. Refills: 0. ciprofloxacin-dexamethasone otic (Ciprodex 0.3%-0.1% Susp-Otic) 4 Drops Otic 2 times a day for 7 Days. Refills: 0. Medications to Continue with No Changes Other Medications diflunisal (diflunisal 500 mg Tab) 1 Tablets By Mouth every 12 hours as needed Pain. Refills: 0. naproxen (Naprosyn 500 mg oral tablet) 1 Tablets By Mouth 2 times a day. naproxen (Naprosyn 500 mg Tab) 1 Tablets By Mouth 2 times a day as needed for pain. Refills: 0. PATIENT EDUCATION INFORMATION: Instructions: COVID-19; Otitis Externa Follow up: With: Address: When: JUANITO LISA[address] [address] [phone] Business (1) In 3 days 03/15/2024 Comments: Call Dr for diagnosis based follow up DIAGNOSIS: Otitis externa, left; [facility] Patient Summaryon [id number] Patient SummaryED Patient Summary [address] [address] Patient Discharge Instructions Person Information Name: LISANDRA SOLIS Age: 33 Years [facility]: [id number] Arrival Date: 03/12/2024 21:23:04 Discharge Diagnosis: Otitis externa, left; Suspected COVID-19 virus infection Primary Care Physician: JUANITO DELEON CNP Provider Information Primary Provider: Jorden Garcia DO [employer] Room Operator:None The exam and treatment you received in the Emergency Department were for an urgent problem and are not intended as complete care. It is important that you follow up with a doctor, nurse practitioner,or physician???s printing assistant for ongoing care. If your symptoms become worse or you do not improve asexpected and you are unable to reach your usual health care provider, you should return to the Emergency Department. We are available 24 hours a day. LISANDRA SOLIS has been given the following list of patient education materials, prescriptions and follow-up instructions: Follow-up Instructions: With: Address: When: JUANITO DELEON [address] [place] [phone] Business (1) In 3 days 03/15/2024 Comments: Call Dr for diagnosis based follow up In the event that this physician does not participate in your insurance network, please consult with your insurance company to find a nearby participating provider. Patient Education Materials: COVID-19; Otitis Externa A MESSAGE TO ALL PATIENTS REGARDING OPIOIDS PRESCRIPTION OPIOIDS: WHAT YOU NEED TO KNOW Prescription opioids can be used to help relieve mjgsyjsf-lv-fsjiry pain and are often prescribed following a [...] as well, even when taken as directed: ??? Tolerance???meaning you might need to take more of the medication for the same pain relief ??? Physical dependence???meaning you have symptoms of withdrawal when a medication is stopped ??? Increased sensitivity to pain ??? Constipation ??? Nausea, vomiting, and dry mouth ??? Sleepiness and dizziness ??? Confusion ??? Depression ??? Low levels of testosterone that can result in lower sex drive, energy, and strength ??? Itching and sweating RISKS ARE GREATER WITH: ??? History of drug misuse, substance use disorder, or overdose ??? Mental health conditions (such as depression or anxiety) ??? Sleep apnea ??? Older age (65 years and older) ??? Avoid alcohol while taking prescription opioids. Also, unless specifically advised by your health care provider, medications to avoid include: ??? Benzodiazepines (such as Xanax or Valium) ??? Muscle relaxants (such as Soma or Flexeril) ??? Hypnotics (such as Ambien or Lunesta) ??? Other prescription opioids KNOW YOUR OPTIONS Talk to your health care provider about ways to manage your pain that don???t involve prescription opioids. Some of these options may actually work better and have fewer risks and side effects. Options may include: ??? Pain relievers such as acetaminophen, ibuprofen, and naproxen ??? Some medication that are also used for depression or seizures ??? Physical therapy and exercise ??? Cognitive behavioral therapy, a psychological, goal-directed approach, in which patients learn how to modify physical, behavioral, and emotional triggers of pain and stress. IF YOU ARE PRESCRIBED OPIOIDS FOR PAIN: ??? Never take opioids in greater amounts or more often than prescribed. ??? Follow up with your primary health care provider. o Work together to create a plan on how to manage your pain. o Talk about ways to help manage your pain that don???t involve prescription opioids. o Talk about any and all concerns and side effects. ??? Help prevent misuse and abuse o Never sell or share prescription opioids. o Never use another person???s prescription opioids. ??? Store prescription opioids in a secure place and out of reach of others (this may include visitors, children, friends, and family). ??? Safely dispose of unused prescription opioids: Find your community drug take-back program or your pharmacy mail-back program, or flush them down the toilet, following guidance from the Food and Drug Administration (www.fda.gov/Drugs/ResourcesForYou). ??? Visit www.cdc.gov/drugoverdose to learn about the risks of opioids abuse and overdose. ??? If you believe y (more content not included)...[facility] Specimen: [id number] Received: 02/29/24 Status: WILFREDO Aburto Num: [id number] Spec Type: Surgical Subm Dr: Mark Mayorga DPM, Tissues: A Tendon/Sheath (PERONEAL TENDON) Procedures: Jim AMADO/Tong L3 Age/ Patient Sex Location Account Attending Physician Lisandra Solis 33/F [place] [id number] Mark Mayorga DPM, MS SPEC NUM: [id number] RECD: 02/29/24 STATUS: WILFREDO ABURTO NUM: [id number] BLAIRE: 02/29/[address] [facility] [address]: Mark Mayorga,WILLYM, [place] ENTERED: 02/29/[address] [facility] [address]: Dale Murphy SPEC TYPE: Surgical DEPT: ESTHER ASHLEY ENTERED BY: [id number] RECV BY: [id number] ORDERED: HE, Gross/Micro L3 ORDERED: HE, Gross/Micro L3 Pathological Diagnosis Left peroneal tendon, excision: - Reactive tendon tissue with benign fibroadipose tissue. Clinical Information Strain muscle/tendons left peroneal muscle group Gross Description Received in formalin labeled with the patients name, date of , and left peroneal tendon tear are strips of taylor-white to pale yellow, fibrous tissue, 4.8 x 1.5 x 0.6 cm in aggregate. Serial sections reveal taylor-white to pale yellow, dull and uniform cut surfaces. Box Strapper sections are submitted in a single cassette. (1, , AW83-900 A) Microscopic Description Microscopic examination is performed. CPT Codes 05444 Specimen: [id number] Received: 02/29/24 Status: WILFREDO Aburto Num: [id number] Spec Type: Surgical Subm Dr: Mark Mayorga,[place], [place] Tissues: A Tendon/Sheath (PERONEAL TENDON) Procedures: HE, Gross/Micro L3 Patient: Lisandra Solis [id number] (Continued) Signed (signature on file) Jhon Desai MD 03/01/24 1037Normal [facility] Physician GroupNo Panel Informationon [id number] Chorionic Gonadotropin, QualNegativeNEGATIVEMorrow County HospitalECG 12 lead ECGon [id number] [address] [facility] [address] Electrocardiograph Report Signed Patient: Lisandra Solis MR#: [id number] 54 : 1990 Acct:[id number] Age/Sex: 33 / F ADM Date: 02/19/24 Loc: ER Room: Type: [facility] ER Attending Dr: Ordering Provider: Graham Olson [...] st findings Confirmed by Graham Olson DO ([id number]) on 02/20/2024 9:19:58 PM Referred By: Electronically Signed By: Graham Olson DO Transcribed By: MUS Signed By Graham Olson DO 0NormalThSaint Alphonsus Medical Center - [facility] Physician GroupB-Type Natriuretic Peptideon [id number] peptide B (Bld) [Mass/Vol]24.0 pg/mLNormal5-100The [facility] Physician [facility] CenterComment on above:Result Comment: PERFORMED BY: [facility] [address] [facility] [address] [place] [id number] PATHOLOGIST TUBING OILER KRISTINA MARTINEZ M.D.Performed By: #### BNP, CBC, BMP, PT, CK, HS TROP ####[address] [address] USABasic Metabolic Panelon 61-10-8254Fiefo gap [Moles/Vol]6.7 mmol/LNormal6.0-15.0[facility] Physician [facility] CenterComment on above:Performed By: #### BNP, CBC, BMP, PT, CK, HS TROP ####[place] [id number] USACalcium [Mass/Vol]9.8 mg/dLNormal8.6-10.3The [facility] Physician Group Comment on above:Performed By: #### BNP, CBC, BMP, PT, CK, HS TROP ####[address] [address] USAChloride [Moles/Vol] 103 mmol/UBqqsmt99-952Bru [facility] Physician GroupComment on above:Performed By: #### BNP, CBC, BMP, PT, CK, HS TROP ####[place] [id number] USACO2 [Moles/Vol]29.0 mmol/IOochrv13.0-31.0[facility] Physician GroupComment on above:Performed By: #### BNP, CBC, BMP, PT, CK, HS TROP ####[address] [address] USACreatinine [Mass/Vol]0.72 mg/dLNormal0.60-1.20The [facility] Physician GroupComment on above:Performed By: #### BNP, CBC, BMP, PT, CK, HS TROP ####[place] [address] [place] [address] [place] Creatinine Clr Calc Nmmyrqhk016.88NormalThe [facility] Physician GroupComment on above:Result Comment: PERFORMED BY: [facility] [address] [place] [address] PATHOLOGIST TUBING OILER KRISTINA MARTINEZ M.D.Performed By: #### BNP, CBC, BMP, PT, CK, HS TROP ####[place] [id number] [place] GFR/1.73 sq M.predicted MDRD (S/P/Bld) [Vol rate/Area]mL/min/{1.73_m2}NormalThe [facility] Physician GroupComment on above:Performed By: #### BNP, CBC, BMP, PT, CK, HS TROP ####[place] [address] USAGlucose [Mass/Vol]106 mg/wIPmob17-782Ybl [facility] Physician Group Comment on above:Result Comment: Random Glucose Reference Range is dependent on time and content of last meal. Glucose of more than 200 mg/dL in a nonstressed, ambulatory subject supports the diagnosis of Diabetes Mellitus. ADA recommended reference rangePerformed By: #### BNP, CBC, BMP, PT, CK, HS TROP ####[place] [id number] [place] Potassium [Moles/Vol]3.7 mmol/LNormal3.5-5.1The [facility] Physician GroupComment on above:Performed By: #### BNP, CBC, BMP, PT, CK, HS TROP ####[place] [id number] USASodium [Moles/Vol]135 mmol/MXzp715-920Vaa [facility] Physician GroupComment on above:Performed By: #### BNP, CBC, BMP, PT, CK, HS TROP ####[place] [id number] USAUrea nitrogen [Mass/Vol]13 mg/dLNormal7-25The [facility] Physician GroupComment on above:Performed By: #### BNP, CBC, BMP, PT, CK, HS TROP ####[facility] [place] [address] USABasophils Auto (Bld) [#/Vol]Ordered By: Graham Olson on 02-19-2024 Basophils (Bld) [#/Vol]Automated basophil count0.0-0.2FDoctors HospitalBasophils/100 WBC Auto (Bld)Ordered By: Graham Olson on 02-19-2024 Basophils/100 WBC (Bld)Automated basophil %.[facility] Calcium [Mass/volume] in Serum or PlasmaOrdered By: Graham Olson on 70-01-8702Suvxhfr [Mass/Vol]Calcium [Mass/volume] in Serum or Plasma8.6-10.3 [facility] HospitalCarbon dioxide, total [Moles/volume] in Serum or PlasmaOrdered By: Graham Olson on [id number] [Moles/Vol]Carbon dioxide, total [Moles/volume] in Serum or Bjoith12.0-31.0M[facility] County HospitalChloride [Moles/volume] in Serum or PlasmaOrdered By: Graham Olson on 17-58-9654Xhhmfmdd [Moles/Vol]Chloride [Moles/volume] in Serum or Xjuyhw15-570RvrutapqeMorrow County HospitalComplete Blood Count Auto Diffon 88-33-2891Vtyrrfjys (Bld) [#/Vol]0.0 10*3/uLNormal0.0-0.2[facility] Physician GroupComment on above:Result Comment: PERFORMED BY: [facility] [address] [place] [address] PATHOLOGIST TUBING OILER KRISTINA MARTINEZ M.D.Performed By: #### BNP, CBC, BMP, PT, CK, HS TROP ####[facility] [place] [address] [place] Basophils/100 WBC (Bld)0.5 %Normal.[facility] Physician GroupComment on above:Performed By: #### BNP, CBC, BMP, PT, CK, HS TROP ####[place] [address] USAEosinophils (Bld) [#/Vol]0.1 10*3/uLNormal0.0-0.45[facility] Physician GroupComment on above:Performed By: #### BNP, CBC, BMP, PT, CK, HS TROP ####[place] [address] USAEosinophils/100 WBC (Bld)0.7 %Normal.[facility] Physician GroupComment on above:Performed By: #### BNP, CBC, BMP, PT, CK, HS TROP ####[place] [address] USAErythrocyte distribution width (RBC) [Ratio]13.4 %Hjitqn69.9-15.3[facility] Physician GroupComment on above:Performed By: #### BNP, CBC, BMP, PT, CK, HS TROP ####[place] [address] USAHematocrit (Bld) [Volume fraction]39.0 %Zqcpjq69.0-46.4[facility] Physician GroupComment on above:Performed By: #### BNP, CBC, BMP, PT, CK, HS TROP ####[place] [address] [place] Hemoglobin (Bld) [Mass/Vol]13.1 g/uJEhxowh35.8-15.4[facility] Comment on above:Performed By: #### BNP, CBC, BMP, PT, CK, HS TROP ####[place] [address] USALymphocytes (Bld) [#/Vol]3.0 10*3/uLNormal1.00-4.8[facility] Physician GroupComment on above: Performed By: #### BNP, CBC, BMP, PT, CK, HS TROP ####[place] [address] USALymphocytes/100 WBC (Bld)29.7 %Normal .[facility] Physician GroupComment on above:Performed By: #### BNP, CBC, BMP, PT, CK, HS TROP ####[address] (RBC) [Entitic mass]29.1 ttEqsiuu43.7-34.3The [facility] Physician GroupComment on above:Performed By: #### BNP, CBC, BMP, PT, CK, HS TROP ####[address] (RBC) [Entitic vol]86.4 zUEblpmb19-551Jna [facility] Physician GroupComment on above:Performed By: #### BNP, CBC, BMP, PT, CK, HS TROP ####[place] [address] USAMean Corpuscular HGB Conc33.7 g/dKXzrdnk89.0-35.0[facility] Physician GroupComment on above:Performed By: #### BNP, CBC, BMP, PT, CK, HS TROP ####[place] [address] USAMonocytes (Bld) [#/Vol]0.4 10*3/uLNormal0.0-0.8[facility] Physician GroupComment on above:Performed By: #### BNP, CBC, BMP, PT, CK, HS TROP ####[place] [address] USAMonocytes/100 WBC (Bld)19.30 %Normal0.00-20.00[facility] Physician GroupComment on above:Performed By: #### BNP, CBC, BMP, PT, CK, HS TROP ####[place] [address] [place] Monocytes/100 WBC (Bld)3.5 %Normal.[facility] Physician GroupComment on above:Performed By: #### BNP, CBC, BMP, PT, CK, HS TROP ####[place] [address] USANeutrophils (Bld) [#/Vol]6.7 10*3/uLNormal1.8-7.7[facility] Physician GroupComment on above:Performed By: #### BNP, CBC, BMP, PT, CK, HS TROP ####[place] [address] USANeutrophils/100 WBC (Bld)65.6 %Normal.[facility] Physician GroupComment on above:Performed By: #### BNP, CBC, BMP, PT, CK, HS TROP ####[address] NRBC%0.1 /100{WBC}Normal0-0.5The [facility] Physician GroupComment on above: Performed By: #### BNP, CBC, BMP, PT, CK, HS TROP ####[place] [address] USAPlatelet mean volume (Bld) [Entitic vol]8.4 fLNormal6.3-10.7The [facility] Physician GroupComment on above:Performed By: #### BNP, CBC, BMP, PT, CK, HS TROP ####[place] [address] USAPlatelets (Bld) [#/Vol]276 10*3/uLNormal 150-450The [facility] Physician GroupComment on above:Performed By: #### BNP, CBC, BMP, PT, CK, HS TROP ####[place] [address] USARBC (Bld) [#/Vol]4.52 10*6/uLNormal3.60-5.00The [facility] Physician GroupComment on above:Performed By: #### BNP, CBC, BMP, PT, CK, HS TROP ####[place] [address] [place] WBC (Bld) [#/Vol]10.2 10*3/uLNormal3.8-11.6The [facility] Physician GroupComment on above:Performed By: #### BNP, CBC, BMP, PT, CK, HS TROP ####[facility] [address] [place] [address] USACreatine Kinaseon 97-00-7863XX [Catalytic activity/Vol]34 U/DQbuhpx81-216Mmr [facility] Physician GroupComment on above:Performed By: #### BNP, CBC, BMP, PT, CK, HS TROP ####[facility] [address] [place] [address] [facility] Creatine kinase [Enzymatic activity/volume] in Serum or PlasmaOrdered By: Graham Olson on 39-93-1472UT [Catalytic activity/Vol]Creatine kinase [Enzymatic activity/volume] in Serum or Tgwdpz45-314EbxafrqquMorrow County HospitalCreatinine [Mass/volume] in Serum or PlasmaOrdered By: Graham Olson on 48-04-5063Ljdrmhlkub [Mass/Vol]Creatinine [Mass/volume] in Serum or Plasma 0.60-1.20Morrow County HospitalECG 12 lead ECGon 68-27-2586AUZ [address] [facility] Main [place] [address] [place] [id number] Electrocardiograph Report Signed Patient: Lisandra Solis MR#: [id number] [birth year] : 1990 Acct:[id number] Age/Sex: 33 / F ADM Date: 02/19/24 Loc: ER Room: Type: [facility] ER Attending Dr: Ordering Provider: Graham Olson [...] wave abnormality Confirmed by Graham Olson DO ([id number]) on 02/20/2024 9:20:25 PM Referred By: Electronically Signed By: Graham Olson DO Transcribed By: MUS Signed By Graham Olson DO 2119[facility] Physician GroupEosinophils Auto (Bld) [#/Vol] Ordered By: Graham Olson on 96-34-9224Ewezvjikpif (Bld) [#/Vol]Automated eosinophil count0.0-0.45M[facility] County HospitalEosinophils/100 WBC Auto (Bld)Ordered By: Graham Olson on 61-25-8661Lrhnclezwwr/100 WBC (Bld) Automated eosinophil %.[facility] County HospitalErythrocyte distribution width Auto (RBC) [Ratio]Ordered By: Graham Olson on 17-73-5628Pwhdssflymk distribution width (RBC) [Ratio]Erythrocyte distribution width [Ratio] by Automated count11.9-15.3FDoctors HospitalGlucose [Mass/volume] in Serum or PlasmaOrdered By: Graham Olson on 20-72-4999Rtwpnka [Mass/Vol] Glucose [Mass/volume] in Serum or HmumudTtxl04-636KhomcburdMorrow County HospitalComment on above:ADA recommended reference rangeRandom Glucose Reference Range is dependent on time and content of last meal. Glucose of more than 200 mg/dL in a nonstressed, ambulatory subject supports the diagnosisof Diabetes Mellitus.Hematocrit Auto (Bld) [Volume fraction]Ordered By: Graham Olson on 09-11-2526Vfjviczvms (Bld) [Volume fraction]Hematocrit [Volume Fraction] of Blood by Automated count34.0-46.4FDoctors HospitalHemoglobin [Mass/volume] in BloodOrdered By: Graham Olson on 55-34-6666Uyklcqzbqz (Bld) [Mass/Vol]Hemoglobin [Mass/volume] in Blood11.8-15.4FDoctors HospitalINR in Platelet poor plasma by Coagulation assayOrdered By: Graham Olson on 58-22-0761IIC Coag (PPP) [Relative time]INR in Platelet poor plasma by Coagulation assayMorrow County HospitalComment on above:INR Therapeutic Range A) Pre- and Peroperative OAT started two weeks before surgery. NOT HIP SURGERY: 1.5 - 2.5 HIP SURGERY: 2 - 3B) Primary and secondary prevention of venous THROMBOSIS: 2 - 3C) Active venous thrombosis, pulmonary embolismand prevention of recurrent venous thrombosis: 2 - 3D) Prevention of arterial thromboembolismincluding patients with mechanical heart valves: 3 - 4.5 Leukocytes [#/volume] corrected for nucleated erythrocytes in Blood by Automated counOrdered By: Graham Olson on 15-93-5654ZOT corrected for nucl RBC Auto (Bld) [#/Vol]Leukocytes [#/volume] corrected for nucleated erythrocytes in Blood by Automated coun3.8-11.6FDoctors HospitalLymphocytes Auto (Bld) [#/Vol]Ordered By: Graham Olson on 60-60-8471Pdbbupkgyfd (Bld) [#/Vol] Lymphocytes [#/volume] in Blood by Automated count1.00-4.8Morrow County HospitalLymphocytes/100 WBC Auto (Bld)Ordered By: Graham Olson on 95-67-5280Cppniatrtcu/100 WBC (Bld)Lymphocytes/100 leukocytes in Blood by Automated count.Morrow County HospitalMCH Auto (RBC) [Entitic mass] Ordered By: Graham Olson on 23-88-4994VGC (RBC) [Entitic mass]MCH [Entitic mass] by Automated count24.7-34.3FDoctors HospitalMCHC Auto (RBC) [Mass/Vol]Ordered By: Graham Olson on 76-24-2148ACWL (RBC) [Mass/Vol] MCHC [Mass/volume] by Automated count32.0-35.0[facility] MCV Auto (RBC) [Entitic vol]Ordered By: Graham Olson on 89-91-7422BXH (RBC) [Entitic vol]MCV [Entitic volume] by Automated diqoi30-123WygxemouaMorrow County HospitalMonocyte distribution width [Entitic volume] in Blood by Automated Ordered By: Graham Olson on 27-16-9532Ajddrnaw distribution width Auto (Bld) [Entitic vol]Monocyte distribution width [Entitic volume] in Blood by Automated 0.00-20.00M[facility] County HospitalMonocytes Auto (Bld) [#/Vol]Ordered By: Graham Olson on 92-43-9293Zdisomojv (Bld) [#/Vol]Automated blood monocyte count0.0-0.8M[facility] County HospitalMonocytes/100 WBC Auto (Bld)Ordered By: Graham Olson on 19-53-7699Bdxhxhglz/100 WBC (Bld)Automated monocyte %.[facility] County HospitalNatriuretic peptide B [Mass/Vol] Ordered By: Graham Olson on 92-34-0202Tbroxbkxald peptide B (Bld) [Mass/Vol] BNP ser/plas5-100M[facility] County HospitalNeutrophils Auto (Bld) [#/Vol] Ordered By: Graham Olson on 95-61-6327Cextskrqswe (Bld) [#/Vol]Neutrophils [#/volume] in Blood by Automated count1.8-7.7FDoctors Hospital Neutrophils/100 WBC Auto (Bld)Ordered By: Graham Olson on 02-19-2024 Neutrophils/100 WBC (Bld)Automated neutrophil %.[facility] County HospitalNo Panel InformationOrdered By: Graham Olson on 61-98-4088Wotqwibfr GFR (CKD-EPI)> 60.0 mL/MinMorrow County HospitalPharmacy Creatinine Clearance (Vlrx962.88M[facility] County HospitalNucleated erythrocytes [Presence] in Blood by Automated countOrdered By: Graham Olson on 02-19-2024 Nucleated RBC Auto Ql (Bld)Nucleated erythrocytes [Presence] in Blood by Automated count0-0.5FDoctors HospitalPlatelet mean volume Auto (Bld) [Entitic vol]Ordered By: Graham Olson on 06-75-2588Ijucnnaw mean volume (Bld) [Entitic vol]Platelet mean volume [Entitic volume] in Blood by Automated count6.3-10.7FDoctors HospitalPlatelets Auto (Bld) [#/Vol]Ordered By: Graham Olson on 83-39-6615Kxjhmajmy (Bld) [#/Vol] Platelets [#/volume] in Blood by Automated uvojl784-979AopbmpoasMorrow County HospitalPotassium [Moles/volume] in Serum or PlasmaOrdered By: Graham Olson on 29-03-9322Dxinvaaim [Moles/Vol]Potassium [Moles/volume] in Serum or Plasma3.5-5.1FDoctors HospitalProthrombin Time INRon 02-19-2024 INR Coag (PPP) [Relative time]0.9 {INR}NormalThe [facility] Comment on above:Result Comment: INR Therapeutic Range A) Pre- and [...] heart valves: 3 - 4.5 PERFORMED BY: [facility] [address] [facility] [place] [address] PATHOLOGIST TUBING OILER KRISTINA MARTINEZ M.D.Performed By: #### BNP, CBC, BMP, PT, CK, HS TROP ####[facility] [place] [address] USAPT Coag (PPP) [Time]10.9 sNormal9.0-12.9[facility] Physician GroupComment on above: Result Comment: A hematocrit value greater than 55% may lead to inaccurate results in coagulation testing. Patients having hematocrit values >55% require a special collection tube for coagulation studies. Please contact the laboratory at [phone] for redraw instructions.Performed By: #### BNP, CBC, BMP, PT, CK, HS TROP ####[facility] [address] [place] [address] USAProthrombin time (PT) Ordered By: Graham Olson on 67-60-8584BN Coag (PPP) [Time]Prothrombin time (PT)9.0-12.9[facility] County HospitalComment on above:A hematocrit value greater than 55% may lead to inaccurate results in coagulation testing. Patientshaving hematocrit values >55% require a special collection tube for coagulation studies. Please contact the laboratory at [phone] for redraw instructions.RBC Auto (Bld) [#/Vol]Ordered By: Graham Olson on 87-16-9590VBU (Bld) [#/Vol]Erythrocytes [#/volume] in Blood by Automated count3.60-5.00 [facility] Hospitalerum or plasma anion gap determinationOrdered By: Graham Olson on 57-67-7408Drtne gap [Moles/Vol]Serum or plasma anion gap determination6.0-15.0Henry County Hospitalodium [Moles/volume] in Serum or PlasmaOrdered By: Graham Olson on 26-13-4518Muhyow [Moles/Vol] Sodium [Moles/volume] in Serum or XndovgXpt075-544FtbhvntfoMorrow County HospitalTroponin I High Sensitivityon 97-04-2492Owbadncw I High Sensitivity<2.3 Normal0.0-15.0[facility] Physician GroupComment on above:Result Comment: PERFORMED BY: [facility] [address] [place] [address] PATHOLOGIST TUBING OILER KRISTINA MARTINEZ M.D.Performed By: #### BNP, CBC, BMP, PT, CK, HS TROP ####[facility] [address] [place] [address] Troponin I.cardiac [Mass/volume] in Serum or Plasma by Detection limit <= 0.01 ng/Ordered By: Graham Olson on 86-59-2447Bwfrnsol I.cardiac DL <= 0.01 ng/mL [Mass/Vol]Troponin I.cardiac [Mass/volume] in Serum or Plasma by Detection limit <= 0.01 ng/0.0-15.0[facility] HospitalUrea nitrogen [Mass/volume] in Serum or PlasmaOrdered By: Graham Olson on 89-35-6770Moko nitrogen [Mass/Vol]Urea nitrogen [Mass/volume] in Serum or Plasma7-25M[facility] County HospitalWBC Auto (Bld) [#/Vol]Ordered By: Graham Olson on 49-86-5810DGY (Bld) [#/Vol]Leukocytes [#/volume] in Blood by Automated count 3.8-11.6FDoctors HospitalXR chest 1V portableon 64-78-7517BL chest 1V [address] [address] [facility] Main [place] [address] [place] [address] XRay Report Signed Patient: Lisandra Solis MR#: [id number] 54 : 1990 Acct:[id number] Age/Sex: 33 / F ADM Date: 02/19/24 [...] NO ACUTE FINDINGS Impression dictated by: Jeet Pacsual Jr., D.OErin02/19/2024 11:24 PM Dictation Location: [place] [address] Transcribed By: [facility] 02/19/242323 Dictated By: Jeet Pascual Jr, DO 02/19/242322 Signed By: 02/19/24 Critical [facility] hospitalB[facility] Physician GroupUS renal BIon 85-07-9906GQ renal [facility] Main [place] [address] [place] [address] Ultrasound Report Signed Patient: Lisandra Solis MR#: [id number] [birth year] : 1990 Acct:[id number] Age/Sex: 33 / F ADM Date: 11/20/23 Loc: Room: Type: [facility] CLI Attending Dr: Juanito Deleon APRN Ordering Provider: [...] Pascual Jr., D.O.11/20/2023 10:28 AM Dictation Location: [place] [address] Tech: Bonita Rico Transcribed By: MOODY 11/20/23 1028 Dictated By: Jeet Pascual Jr, DO 11/20/23 1028 Signed By: 11/20/[address] [place] [address] Physician GroupUS renal doppleron 66-10-6969PM renal dopplerMERCY HEALTH ST[facility] [address] Ultrasound Report Signed Patient: Lisandra Solis MR#: [id number] 54 : 1990 Acct:[id number] Age/Sex: 33 / F ADM Date: 11/20/23 Loc: Room: Type: [facility] Attending Dr: Juanito Deleon APRN Ordering Provider: [...] Raghav Resendez M.D.11/20/2023 10:28 AM Dictation Location: [place] [address] Tech: Namrata Everton Transcribed By: MOODY 11/20/23 1028 Dictated By: Raghav Resendez MD 11/20/23 1025 Signed By: 11/20/[address] [place] [address] Physician GroupB hCG Qualon 19-54-4637Znkm HCG ( test) QlNegativeNormalFisher Johns Hopkins HospitalComment on above: Performed By: #### [id number] #### [facility] [address] [place], [place] [address]Uhep-cvtnk chorionic gonadotropin (BhCG) detectionon 11-02-2023 HCG.beta subunit Ql (Unsp spec)1 mIU/mL1-3FDoctors HospitalBhCG Quanton 06-25-4514MCA.beta subunit Qn1 m[IU]/mLNormal1-3Fisher [facility] Hopkins HospitalComment on above:Result Comment: 'F NON < 1 - 3' ' 0.2 - 1 WEEK = 5 TO 50' ' 1 - 2 WEEKS = 50 - 500' ' 2 - 3 WEEKS = 100 - 5000' ' 3 - 4 WEEKS = 500 - 87181' ' 4 - 5 WEEKS = 1000 - 06339' ' 5 - 6 WEEKS = 70231 - 198305' ' 6 - 8 WEEKS = 48719 - 395398' ' 8 - 12 WEEKS = 85461 - 566671'Performed By: #### [id number] #### [facility] [address] [place], [place] [address]PDZQFCUQYJspvdzr By: SYSTEM SYSTEM on 23-62-1512AWK.beta subunit Qn1 m[IU]/mLNormal1 - 3 mIU/mLRemisol ChemComment on above:Result Comment: 'F NON < 1 - 3' ' 0.2 - 1 WEEK = 5 TO 50' ' 1 - 2 WEEKS = 50 - 500' ' 2 - 3 WEEKS = 100 - 5000' ' 3 - 4 WEEKS = 500 - 69013' ' 4 - 5 WEEKS = 1000 - 70472' ' 5 - 6 WEEKS = 72811 - 297283' ' 6 - 8 WEEKS = 39682 - 288489' ' 8 - 12 WEEKS = 58498 - 428366'No Panel Informationon 51-58-1583Esuma Chorionic Gonadotropin, QualNegativeHenry County HospitalEROLOGY Ordered By: Maggi Conroy on 15-36-4618Wrxr HCG ( test) QlNegative (11/02/23 3:27 PM)NormalMEMORIAL HOSPITAL OF [facility] Man SeroXR Ankle 3+ Views Lefton 90-59-9517KG Ankle 3+ Views LeftExam Date/Time: 10/23/2023 22:59 EDT Reason for Exam: Pain Report PLEASE SEE XR Foot 3+ Views Left REPORT DATED: 10/23/2023. Ordering Provider: Alyx De La Vega FINAL REPORT Dictated: 10/24/2023 11:24 am Luís Mancini MD Signed (Electronic Signature): 10/24/2023 11:24 am Signed by: Luís Mancini MD Transcribed by: WILLY Technologist: LUIS Technical Comments Radiation Dose: Ka,r in mGy = n/a DAP = n/[facility] HospitalXR Foot 3+ Views Lefton 06-24-2817GN Foot 3+ Views LeftExam Date/Time: 10/23/2023 22:59 EDT Reason for Exam: [...] Ka,r in mGy = n/a DAP = n/[facility] Clinical Summaryon 37-20-1892WF Clinical SummaryED Clinical Summary [address] [address] ED Clinical Summary Person Information Name: LISANDRA SOLIS/New_[place]han Age: 33 Years : 1990 Sex: Female Language: Austrian PCP: JUANITO DELEON CNP Marital Status: Single MRN: [id number] Visit Id: Visit Reason: Leg pain-swelling; Ankle [...] 10/23/2023 23:40:30 10/23/2023 23:40:30 10/23/2023 23:40:30 ADDRESS: [facility] [address] [facility] [place] [id number] PHYS DOC NOTES: MEDICAL INFORMATION: Prescriptions Given: New Medications [employer] [facility], [address] [place], [place] [id number], [phone] diflunisal (diflunisal 500 mg Tab) 1 Tablets [...] 0. PATIENT EDUCATION INFORMATION: Instructions: Ankle Sprain, Ehfn-zj-Qjah Follow up: With: Address: When: Call to schedule a follow-up appointment with your orthopedic surgeon for further management of care. Use the diflunisal as needed for pain. Do not use ibuprofen or naproxen with this as they are in the same family class. Return to the ED with any wors In 3 days 10/26/2023 With: Address: When: JUANITO DELEON [address] [facility] [place] [phone] Business (1) In 3 days DIAGNOSIS: Post-operative complicationNormalFisher Sulaiman Medical CenterED Note-Physicianon 16-62-0893WJ Note-PhysicianED Note-Physician Basic Information Time Seen: Yolette HUIZAR, [...] ankle surgery who presents to the ED withleft ankle pain that began this evening while [...] minimal relief in symptoms. Patient notes the swellingthat is present now has occurred intermittently throughout [...] healed scar to the lateral malleolus without surroundingerythema, swelling to the left lateral malleolus with tenderness to palpation, full range of motionof the left toes, neurovascularly intact Neurological: A&O moves all extremities equal strength and symmetry Psychiatric: Cooperative and appropriate Medical Decision Making Patient is a 33-year-old female 6 months status post left ankle surgery who presents to the ED withleft ankle pain that began this evening while at work. Patient is afebrile. She denies the need forpain medication while in the ED. left ankle [...] Instructions: JUANITO DELEON In 3 days [address] [place] [phone] Business (1) Additional Instructions: Patient Education Ankle Sprain, Ddiz-nf-Setu Attestation Patient seen and evaluated by the physician printing assistant. Attending physician was present in the emergency department and supervised care. This visit was performed by both the physician and an APC. I performed all aspects of the MDM as documented. This report was transcribed using voice recognition software. Every effort was made to ensure accuracy, however, inadvertently computerized manager science mistakes may be present. Appropriate healthcare PPE [...] as above. (Discussion) M (more content not included)...[facility] Comment on above:Result Comment: Electronically Signed By: Alyx De La Vega PA-C\.br\Date and Time Signed: 10/22/2422:39 EDT\.br\Electronically Co-Signed By: Wesly Lopez DO\.br\Date and Time Co-Signed: 10/23/23 23:47 EDTED Patient Summaryon 05-21-9382UQ Patient SummaryED Patient Summary [place] [id number] Patient Discharge Instructions Person Information Name: LISANDRA SOLIS Age: 33 Years Arrival Date: 10/23/2023 22:24:58 Discharge Diagnosis: Post-operative complication Primary Care Physician: JUANITO DELEON CNP Provider Information Primary Provider: Wesly Lopez DO [employer] Room Operator:Alyx De La Vega PA-C The exam and treatment you received in the Emergency Department were for an urgent problem and are not intended as complete care. It is important that you follow up with a doctor, nurse practitioner,or physician?s printing assistant for ongoing care. If your symptoms [...] days 10/26/2023 With: Address: When: JUANITO DELEON [facility] [facility] [place] [phone] Business (1) In 3 days In the event that this physician does not participate in your insurance network, please consult with your insurance company to find a nearby participating provider. Patient Education Materials: Ankle Sprain, Pcxl-bq-Qiwy A MESSAGE TO ALL PATIENTS REGARDING OPIOIDS PRESCRIPTION OPIOIDS: WHAT YOU NEED TO KNOW Prescription opioids can be used to help relieve towqdygp-gr-jfeptk pain and are often prescribed following a [...] and have fewer risks and side effects. Optionsmay include: ? Pain relievers such as acetaminophen, [...] unused prescription opioids: Find your community drug take- back program or yourpharmacy mail-back program, or flush them down the toilet, following guidance from the Food and Drug Administra (more content not included)...[facility] CenterXR chest 2V*on 59-67-8022OW chest 2V*[facility] Main [place] [address] [place] [address] XRay Report Signed Patient: Lisandra Solis MR#: [id number] 54 : 1990 Acct:[id number] Age/Sex: 33 / F ADM Date: 10/03/23 Loc: ER Room: Type: [facility] ER Attending Dr: Copies to: Jonatan Londono Jr, MD Ordering Provider: Jonatan Londono Jr, MD Date of Service: 10/03/23 [...] Radha Crook M.D.10/04/2023 8:45 AM Dictation Location: [place] [address] Transcribed By: [facility] 10/04/23 0845 Dictated By: Radha Crook MD 10/04/23 0844 Signed By: 10/04/23 0845[facility] Physician GroupActivated partial thromboplastin time (aPTT) in platelet poor plasma by coagulation aOrdered By: Jonatan Londono on 35-18-2771eBUB Coag (PPP) [Time]32.7 s25.1-36.5FDoctors HospitalComment on above:A hematocrit value greater than 55% may lead to inaccurate results in coagulation testing. Patientshaving hematocrit values >55% require a special collection tube for coagulation studies. Please contact the laboratory at [phone] for redraw instructions.Automated basophil %Ordered By: Jonatan Londono on 65-03-5463Vysalzgan/100 WBC (Bld)0.6 %Normal.Morrow County HospitalComment on above:Performed By: #### CBC, BNP, BMP, DDIMER, PT, HS TROP, PTT #### [place] [address] USAAutomated basophil countOrdered By: Jonatan Londono on 00-57-8862Mcgmprjwb (Bld) [#/Vol]0.1 10*3/uLNormal0.0-0.2FDoctors HospitalComment on above:Result Comment: PERFORMED BY: [place] [address] PATHOLOGIST TUBING OILER TIR ASH M.D.Performed By: #### CBC, BNP, BMP, DDIMER, PT, HS TROP, PTT #### [place] [address] USAAutomated blood monocyte countOrdered By: Jonatan Londono on 97-16-1135Killkaltb (Bld) [#/Vol]0.6 10*3/uLNormal0.0-0.8M[facility] County HospitalComment on above:Performed By: #### CBC, BNP, BMP, DDIMER, PT, HS TROP, PTT #### [place] [address] USAAutomated eosinophil %Ordered By: Jonatan Londono on 19-64-5148Skotqkumvpt/100 WBC (Bld)0.8 %Normal.[facility] Comment on above:Performed By: #### CBC, BNP, BMP, DDIMER, PT, HS TROP, PTT #### [facility] [address] [place] [address] USAAutomated eosinophil countOrdered By: Jonatan Londono on 24-36-0168Lgeqocujacf (Bld) [#/Vol]0.1 10*3/uLNormal0.0-0.45[facility] HospitalComment on above:Performed By: #### CBC, BNP, BMP, DDIMER, PT, HS TROP, PTT #### [facility] [address] [place] [address] USAAutomated monocyte %Ordered By: Jonatan Londono on 28-32-3498Tsvmkdhoh/100 WBC (Bld)6.5 %Normal.[facility] Comment on above:Performed By: #### CBC, BNP, BMP, DDIMER, PT, HS TROP, PTT #### [facility] [address] [place] [address] USAAutomated neutrophil %Ordered By: Jonatan Londono on 97-88-0245Llnxavqlzda/100 WBC (Bld)65.6 %Normal.[facility] HospitalComment on above:Performed By: #### CBC, BNP, BMP, DDIMER, PT, HS TROP, PTT #### [facility] [address] [place] [address] USABNP ser/plasOrdered By: Jonatan Londono on 10-03-2023 Natriuretic peptide B (Bld) [Mass/Vol]30.0 pg/mLNormal5-100[facility] HospitalComment on above:Result Comment: PERFORMED BY: [facility] [address] [place] [address] PATHOLOGIST TUBING OILER TRI ASH M.D.Performed By: #### CBC, BNP, BMP, DDIMER, PT, HS TROP, PTT ####[facility] [place] [address] USABasic Metabolic Panelon 94-43-3825Erpncxhgnn Clr Calc Zbxwwffx097.63[facility] Physician GroupComment on above:Result Comment: PERFORMED BY: [place] [address] PATHOLOGIST TUBING OILER TRI ASH M.D.Performed By: #### CBC, BNP, BMP, DDIMER, PT, HS TROP, PTT #### [place] [address] USAGFR/1.73 sq M.predicted MDRD (S/P/Bld) [Vol rate/Area] mL/min/{1.73_m2}NormalThe [facility] Physician GroupComment on above:Performed By: #### CBC, BNP, BMP, DDIMER, PT, HS TROP, PTT #### [place] [address] USACalcium [Mass/volume] in Serum or PlasmaOrdered By: Jonatan Londono on 29-58-2688Mrqvaud [Mass/Vol]9.8 mg/dLNormal8.6-10.3FDoctors HospitalComment on above:Performed By: #### CBC, BNP, BMP, DDIMER, PT, HS TROP, PTT #### [place] [address] USACarbon dioxide, total [Moles/volume] in Serum or Plasma Ordered By: Jonatan Londono on 24-92-2687AB6 [Moles/Vol]26.1 mmol/UZrbkjk90.0-31.0 [facility] HospitalComment on above:Performed By: #### CBC, BNP, BMP, DDIMER, PT, HS TROP, PTT #### [place] [address] USAChloride [Moles/volume] in Serum or PlasmaOrdered By: Jonatan Londono on 26-32-1817Zvuraqlr [Moles/Vol]106 mmol/GUaiokt38-560RlsumspriMorrow County HospitalComment on above:Performed By: #### CBC, BNP, BMP, DDIMER, PT, HS TROP, PTT #### [place] [address] USAComplete Blood Count Auto Diffon 25-63-6362Gygn Corpuscular HGB Conc34.0 g/hHBbwrqd90.0-35.0The [facility] Of MechanicsburgComment on above:Performed By: #### CBC, BNP, BMP, DDIMER, PT, HS TROP, PTT #### [place] [address] USAMonocytes/100 WBC (Bld)18.73 %Normal0.00-20.00[facility] Physician [facility] CenterComment on above:Performed By: #### CBC, BNP, BMP, DDIMER, PT, HS TROP, PTT #### [facility] [address] [place] [address] USANRBC%0.0 /100{WBC}Normal0-0.5[facility] Physician [facility] Comment on above:Performed By: #### CBC, BNP, BMP, DDIMER, PT, HS TROP, PTT #### [place] [address] USACreatinine [Mass/volume] in Serum or PlasmaOrdered By: Jonatan Londono on 64-75-4016Wpovyljqru [Mass/Vol]0.78 mg/dLNormal0.60-1.20 [facility] HospitalComment on above:Performed By: #### CBC, BNP, BMP, DDIMER, PT, HS TROP, PTT #### [place] [address] USAD-Dimer High Sensitivityon 53-77-8012U-Dimer High Sensitivity< 097Zzybvi8-432Tqt [facility] Of MechanicsburgComment on above:Result Comment: The reference range for D-dimer is [...] coagulation studies. Please contact the laboratory at [phone] for redraw instructions. PERFORMED BY: [place] [address] PATHOLOGIST TUBING OILER TRI ASH M.D.Performed By: #### CBC, BNP, BMP, DDIMER, PT, HS TROP, PTT #### [place] [address] USAECG 12 lead ECGon 02-23-3251YTC [address] [facility] Main [place] [address] [address] Electrocardiograph Report Signed Patient: Lisandra Solis MR#: [id number] 54 : 1990 Acct:[id number] Age/Sex: 33 / F ADM Date: 10/03/23 Loc: ER Room: Type: [facility] ER Attending Dr: Ordering Provider: Jonatan Londono Jr, MD Date of Service: 10/03/2309/20/2112 [...] QT has shortened Confirmed by DENA SMITH [facility], ISMAEL ([id number]) on 10/06/2023 3:55:23 PM Referred By: Electronically Signed By:ISMAEL FERNANDES MD [facility] Transcribed By: MUS Signed By Ismael Fernandes MD, FACC 10/06/[address] [place] [address] Physician GroupErythrocyte distribution width [Ratio] by Automated countOrdered By: Jonatan Londono on 50-09-7395Xieojqwsjkd distribution width (RBC) [Ratio]13.0 %Ckhaup74.9-15.3FDoctors HospitalComment on above:Performed By: #### CBC, BNP, BMP, DDIMER, PT, HS TROP, PTT #### [facility] [address] [place] [address] USAErythrocytes [#/volume] in Blood by Automated countOrdered By: Jonatan Londono on 30-17-1502GEF (Bld) [#/Vol]4.39 10*6/uLNormal3.60-5.00 [facility] HospitalComment on above:Performed By: #### CBC, BNP, BMP, DDIMER, PT, HS TROP, PTT #### [facility] [address] [place] [address] USAFibrin D-dimer [Presence] in Platelet poor plasma by Latex agglutinationOrdered By: Jonatan Londono on 36-28-4578Ghffcb D-dimer LA Ql (PPP)< 200 ng/mL0-243[facility] HospitalComment on above:The reference range for D-dimer is <243 ng/mL D-dimer units.D-dimer results must be used in conjunction with a clinicalpretest probability (PTP) assessment model for deep veinthrombosis (DVT) and pulmonary embolism (PE). Results <230ng/mL d-dimer units can be used as a negative predictor inpatients with low or moderate probability for DVT/PE.Results above the exclusion threshold of 230 ng/ml D- dimerunits for DVT/PE may indicate the need for furtherdiagnostic testing.D- Dimer can be increased in hospitalized patients due toco-morbid conditions.A hematocrit value greater than 55% may lead to inaccurate results in coagulation testing. Patients having hematocrit values >55% require a special collection tube for coagulation studies. Please contact the laboratory at [phone] for redraw instructions.Glucose [Mass/volume] in Serum or PlasmaOrdered By: Jonatan Londono on 74-14-1128Otduped [Mass/Vol]102 mg/iZRpub79-390WvmshkhjqMorrow County HospitalComment on above:ADA recommended reference rangeRandom Glucose Reference Range is dependent on time and content of last meal. Glucose of more than 200 mg/dL in a nonstressed, ambulatory subject supports the diagnosisof Diabetes Mellitus.Result Comment: Random Glucose Reference Range is dependent on time and content of last meal. Glucose of more than 200 mg/dL in a nonstressed, ambulatory subject supports the diagnosis of Diabetes Mellitus. ADA recommended reference rangePerformed By: #### CBC, BNP, BMP, DDIMER, PT, HS TROP, PTT #### [facility] [address] [place] [address] USAHematocrit [Volume Fraction] of Blood by Automated count Ordered By: Jonatan Londono on 59-76-5596Jyffkvitat (Bld) [Volume fraction]37.7 % Dpfwij40.0-46.4FDoctors HospitalComment on above:Performed By: #### CBC, BNP, BMP, DDIMER, PT, HS TROP, PTT #### [facility] [address] [place] [address] USAHemoglobin [Mass/volume] in BloodOrdered By: Jonatan Londono on 98-17-4477Lodzzkvhqr (Bld) [Mass/Vol]12.8 g/aEIfvkzr37.8-15.4FDoctors HospitalComment on above:Performed By: #### CBC, BNP, BMP, DDIMER, PT, HS TROP, PTT #### [facility] [address] [place] [address] USAINR in Platelet poor plasma by Coagulation assayOrdered By: Jonatan Londono on 24-67-5151BSH Coag (PPP) [Relative time]0.9 {INR}Normal [facility] HospitalComment on above:INR Therapeutic Range A) Pre- and Peroperative OAT started two weeks before surgery. NOT HIP SURGERY: 1.5 - 2.5 HIP SURGERY: 2 - 3B) Primary and secondary prevention of venous THROMBOSIS: 2 - 3C) Active venous thrombosis, pulmonary embolismand prevention of recurrent venous thrombosis: 2 - 3D) Prevention of arterial thromboembolismincluding patients with mechanical heart valves: 3 - 4.5Result Comment: INR Therapeutic Range A) Pre- and [...] patients with mechanical heart valves: 3 - 4.5Performed By: #### CBC, BNP, BMP, DDIMER, PT, HS TROP, PTT #### [place] [address] USALeukocytes [#/volume] corrected for nucleated erythrocytes in Blood by Automated counOrdered By: Jonatan Londono on 93-52-5225AVB corrected for nucl RBC Auto (Bld) [#/Vol]9.2 10*3/uL3.8-11.6FDoctors HospitalLeukocytes [#/volume] in Blood by Automated countOrdered By: Jonatan Londono on 42-93-8379PMD (Bld) [#/Vol]9.2 10*3/uLNormal3.8-11.6FDoctors HospitalComment on above:Performed By: #### CBC, BNP, BMP, DDIMER, PT, HS TROP, PTT #### [place] [address] USALymphocytes [#/volume] in Blood by Automated countOrdered By: Jonatan Londono on 60-10-5382Whhufqdpqvj (Bld) [#/Vol]2.4 10*3/uLNormal 1.00-4.8[facility] HospitalComment on above:Performed By: #### CBC, BNP, BMP, DDIMER, PT, HS TROP, PTT #### [place] [address] USALymphocytes/100 leukocytes in Blood by Automated count Ordered By: Jonatan Londono on 24-41-6211Hkgxzyhiayp/100 WBC (Bld)26.5 %Normal. [facility] HospitalComment on above:Performed By: #### CBC, BNP, BMP, DDIMER, PT, HS TROP, PTT #### [place] [address] USAH [Entitic mass] by Automated countOrdered By: Jonatan Londono on 79-00-6918TDQ (RBC) [Entitic mass]29.2 nxBaruuu99.7-34.3FDoctors HospitalComment on above:Performed By: #### CBC, BNP, BMP, DDIMER, PT, HS TROP, PTT #### [place] [address] USAHC Auto (RBC) [Mass/Vol]Ordered By: Jonatan Londono on 77-64-3040CDHP (RBC) [Mass/Vol]34.0 g/dL32.0-35.0[facility] HospitalMCV [Entitic volume] by Automated countOrdered By: Jonatan Londono on 34-34-1078YYK (RBC) [Entitic vol]85.9 cRBhusqr96-452YopmtvxwlMorrow County HospitalComment on above:Performed By: #### CBC, BNP, BMP, DDIMER, PT, HS TROP, PTT #### [facility] [address] [place] [address] USAMonocyte distribution width [Entitic volume] in Blood by AutomatedOrdered By: Jonatan Londono on 77-50-9126Qhjzigeh distribution width Auto (Bld) [Entitic vol]18.73 %0.00-20.00[facility] HospitalNeutrophils [#/volume] in Blood by Automated countOrdered By: Jonatan Londono on 10-03-2023 Neutrophils (Bld) [#/Vol]6.0 10*3/uLNormal1.8-7.7FDoctors HospitalComment on above:Performed By: #### CBC, BNP, BMP, DDIMER, PT, HS TROP, PTT #### [facility] [address] [place] [address] USANo Panel InformationOrdered By: Jonatan Londono on 90-85-1054Myyxkashm GFR (CKD-EPI)> 60.0 mL/MinMorrow County Hospital Pharmacy Creatinine Clearance (Aedx327.63[facility] Nucleated erythrocytes [Presence] in Blood by Automated countOrdered By: Jonatan Londono on 14-93-2407Hcfeyjbbb RBC Auto Ql (Bld)0.0 /100{WBC}0-0.5FDoctors HospitalPartial Thromboplastin Timeon 57-81-1039tTSX Coag (Bld) [Time]32.7 zJufmta18.1-36.5[facility] Physician GroupComment on above:Result Comment: A hematocrit value greater than 55% may lead to inaccurate results in coagulation testing. Patients having hematocrit values >55% require a special collection tube for coagulation studies. Please contact the laboratory at [phone] for redraw instructions.Performed By: #### CBC, BNP, BMP, DDIMER, PT, HS TROP, PTT #### [facility] [address] [place] [address] USAPlatelet mean volume [Entitic volume] in Blood by Automated countOrdered By: Jonatan Londono on 70-96-2418Qnrympxq mean volume (Bld) [Entitic vol]8.6 fLNormal6.3-10.7FDoctors HospitalComment on above:Performed By: #### CBC, BNP, BMP, DDIMER, PT, HS TROP, PTT #### [facility] [address] [place] [address] USAPlatelets [#/volume] in Blood by Automated countOrdered By: Jonatan Londono on 18-94-9316Vqnmtieih (Bld) [#/Vol]238 10*3/xRXplmeg099-843 [facility] HospitalComment on above:Performed By: #### CBC, BNP, BMP, DDIMER, PT, HS TROP, PTT #### [place] [address] USAPotassium [Moles/volume] in Serum or PlasmaOrdered By: Jonatan Londono on 02-13-7055Ubhshhgpk [Moles/Vol]3.8 mmol/LNormal3.5-5.1FDoctors HospitalComment on above:Performed By: #### CBC, BNP, BMP, DDIMER, PT, HS TROP, PTT #### [place] [address] USAProthrombin time (PT)Ordered By: Jonatan Londono on 56-83-2779MF Coag (PPP) [Time]10.1 sNormal9.0-12.9[facility] HospitalComment on above:A hematocrit value greater than 55% may lead to inaccurate results in coagulation testing. Patientshaving hematocrit values >55% require a special collection tube for coagulation studies. Please contact the laboratory at [phone] for redraw instructions.Result Comment: A hematocrit value greater than 55% may lead to inaccurate results in coagulation testing. Patients having hematocrit values >55% require a special collection tube for coagulation studies. Please contact the laboratory at [phone] for redraw instructions.Performed By: #### CBC, BNP, BMP, DDIMER, PT, HS TROP, PTT #### [facility] [address] [place] [address] USASerum or plasma anion gap determinationOrdered By: Jonatan Londono on 76-68-2143Hfvrt gap [Moles/Vol]6.7 mmol/LNormal6.0-15.0[facility] HospitalComment on above:Performed By: #### CBC, BNP, BMP, DDIMER, PT, HS TROP, PTT #### [facility] [address] [place] [address] USASodium [Moles/volume] in Serum or PlasmaOrdered By: Jonatan Londono on 03-92-0275Qomldk [Moles/Vol]135 mmol/NObk620-632GiyfhaxasMorrow County HospitalComment on above:Performed By: #### CBC, BNP, BMP, DDIMER, PT, HS TROP, PTT #### [facility] [address] [place], [place] [address] USATroponin I High Sensitivityon 11-02-9956Xryrljnl I High Sensitivity3.5 pg/mLNormal0.0-15.0[facility] Physician GroupComment on above: Result Comment: PERFORMED BY: [place] [address] PATHOLOGIST TUBING OILER TRI ASH M.D.Performed By: #### CBC, BNP, BMP, DDIMER, PT, HS TROP, PTT ####[facility] [place] [address] [facility] Troponin I.cardiac [Mass/volume] in Serum or Plasma by Detection limit <= 0.01 ng/Ordered By: Jonatan Londono on 98-83-2525Ntgtyggw I.cardiac DL <= 0.01 ng/mL [Mass/Vol]3.5 pg/mL0.0-15.0[facility] HospitalUrea nitrogen [Mass/volume] in Serum or PlasmaOrdered By: Jonatan Londono on 00-76-8692Fzzv nitrogen [Mass/Vol]17 mg/dLNormal7-25[facility] HospitalComment on above:Performed By: #### CBC, BNP, BMP, DDIMER, PT, HS TROP, PTT #### [facility] [address] [place] [address] Vitaman papilloma virus 16+18+31+33+35+39+45+51+52+56+58+59+66+68 DNA [Presence] in Jose Angel 30-67-2511LRY 16+18+31+33+35+39+45+51+52+56+58+59+66+68 DNA Probe+sig amp Ql (Cvx)Negative NegativeMorrow County HospitalComment on above:This nucleic acid amplification test detects fourteen high-risk HPV types (16,18,31,33,35,39,45,51,52,56,58,59,66,68)without differentiation.Performed at: =G - [facility] [address] [id number] Director: Arianne Sharma MD, Phone: [phone] at: WB - [facility] [address] [id number] Director: Arianne Sharma MD, Phone: [phone] Panel Informationon 16-99-1313QBK High Risk Other CommentNote. [facility] HospitalComment on above:TESTS RESULT FLAG UNITS REF RANGE LAB DIAGNOSIS: 02 NEGATIVE FOR INTRAEPITHELIAL LESION OR MALIGNANCY. CELLULAR CHANGES ASSOCIATED WITH INFLAMMATION ARE PRESENT.Specimen adequacy: 02 Satisfactory for evaluation. Endocervical and/or squamousmetaplastic cells (endocervical component) are present.Performed by: 02 Alyx Sanches, College Associate (ASC). 02Note: Note 02 The Pap smear is a screening test designed to aid in the detection of premalignant and malignant conditions of the uterine cervix. It is not a diagnostic procedure and should not be used as the sole means of detecting cervical cancer. Both false-positive and false-negative reports do occur.Test Methodology: Note 02 This liquid based ThinPrep(R) pap test was screenedwith the use of an image guided system.HPV Genotype Reflex Note 02 Criteria not met, HPV Genotype not performed. FLAG LEGEND: L-Low Normal,H-High Normal,LL-Alert Low,HH-Alert High <-Panic Low,>- Panic High,A-Abnormal,AA-Critical Abnorm al Performed at:[address] [facility] [address] [phone] Arianne Sharma MD, Lbtuzbfxu Lab Test Patient AgeNote.[facility] HospitalComment on above:TESTS RESULT FLAG UNITS REF RANGE LAB Clinician Provided Cytology Information Source.............Cervix;Endocervix No. of containers..01 ThinPrep VialAge Neymar LAND Dionna... FLAG LEGEND: L-Low Normal,H-High Normal,LL-Alert Low,HH-Alert High <-Panic Low,>-Panic High,A- Abnormal,AA-Critical Abnormal Performed a t:01 =G [facility] [address] [place], [place] [address] Arianne Sharma MD, MJVAws 12-98-0343DGQSBilvcv TextNoFirelands Regional Medical Centeron 61-26-8208JIMQYijlaezbt (OTOLIN) LISANDRA SOLIS ([id number]) 1990 F Date Time Provider Department 07/30/23 JUDE APONTE During your visit today, we recorded the following information about you: Lupe Cole 07/30/2023 10:46 AM Signed Pt called Asked for a work excuse for 07/22. She couldn't get a fax number for PSS. Sent her [employer] registration info (she could get the letter that way) and also mailed to hope address. Advised of 2 week delay Allergies As of Date: 07/30/2023 Noted Allergy Reaction VICODIN (HYDROCODONE-ACETAMINOPHE*07/11/2015 9 - Itching Date Reviewed: 07/23/2023 Reviewed [...] 2*07/11/2015 Encounter Status:Closed [facility]23[facility] 17-96-1607OESHAvangs Visit (OTOLIN) LISANDRA SOLIS ([id number]) 1990 F Date Time Provider Department 07/23/23 [...] of Date: 07/23/2023 Noted Allergy Reaction VICODIN (HYDROCODONE-ACETAMINOPHE*07/11/2015 9 - Itching Date Reviewed: 07/23/2023 Reviewed [...] 2*07/11/2015 Encounter Status:Closed by JUDE APONTE on 07/23/23NoPremier HealthThyroid Stim Hormone w/Rflxon 70-09-5890Tcjsijn Stim Hormone w/Rflx0.80 u[iU]/mLNormal0.45-5.33[facility] Physician GroupComment on above:Result Comment: PERFORMED BY: [facility] [address] [place] [address] PATHOLOGIST TUBING OILER TRI ASH M.D.Performed By: #### TSH3 wRFLX ####[facility] [facility] [place], [place] [address]TTVJuzxssvbeow [Units/volume] in Serum or PlasmaOrdered By: Juanito Deleon on 70-82-6763IGM Qn0.80 m[IU]/L0.45-5.33 [facility] HospitalAutomated erythrocytes count in urine sediment (number/area)Ordered By: Sukhdeep Nielson on 10-61-5717JMX Auto (Urine sed) [#/Area] 3-4 [HPF]0-4FDoctors HospitalAutomated leukocytes count in urine sediment (number/area)Ordered By: Sukhdeep Nisreen on 84-45-0705WIA Auto (Urine sed) [#/Area]10-19 [HPF]0-4FDoctors HospitalBasophils Auto (Bld) [#/Vol]Ordered By: Nimisha Wilkes on 19-77-4947Xmtatlejz (Bld) [#/Vol]0.1 10*3/uL0.0-0.2FDoctors HospitalBasophils/100 WBC Auto (Bld) Ordered By: Nimisha Wilkes on 92-18-7424Mzidoeqck/100 WBC (Bld)0.7 %.[facility] HospitalBilirubin Test strip Ql (U)Ordered By: Sukhdeep Nielson on 37-82-7339Aqsrgidca Ql (U)NegativeNegativeMorrow County HospitalCOVID CepheidOrdered By: Sukhdeep Nielson on 73-60-8782ABXV-CoV-2 (COVID-19) Ab IA Ql NegativeNegativeMorrow County HospitalComment on above:This is a duplicate [employer] Xpert Xpress CoV-2/Flu/RSV Plus RNA by RT-PCR result to be used for statistical tracking purpose only.SARS-CoV-2 (COVID-19) RNA VANNESA+probe Ql (Unsp spec)[facility] HospitalARS-CoV-2 (COVID-19) RNA VANNESA+probe Ql (Unsp spec)[facility] HospitalCalcium [Mass/volume] in Serum or PlasmaOrdered By: Nimisha Wilkes on 44-45-6800Awzveqh [Mass/Vol]9.9 mg/dL8.6-10.3FDoctors HospitalCarbon dioxide, total [Moles/volume] in Serum or PlasmaOrdered By: Nimisha Wilkes on 71-11-1645UY5 [Moles/Vol]26.1 mmol/L21.0-31.0[facility] HospitalChloride [Moles/volume] in Serum or PlasmaOrdered By: Nimisha Wilkes on 05-13-2023 Chloride [Moles/Vol]104 mmol/Y13-868NvxyypcpzMorrow County HospitalColor Auto (U)Ordered By: Sukhdeep Nielson on 14-17-9987Lydxl (U)YellowYellowMorrow County HospitalCreatinine [Mass/volume] in Serum or PlasmaOrdered By: Nimisha Wilkes on 96-47-7738Ubdzcvkaqk [Mass/Vol]0.71 mg/dL0.60-1.20[facility] HospitalEosinophils Auto (Bld) [#/Vol]Ordered By: Nimisha Wilkes on 02-62-4930Ytfmzksmsmr (Bld) [#/Vol]0.1 10*3/uL0.0-0.45[facility] HospitalEosinophils/100 WBC Auto (Bld)Ordered By: Nimisha Wilkes on 05-13-2023 Eosinophils/100 WBC (Bld)0.7 %.[facility] County HospitalErythrocyte distribution width Auto (RBC) [Ratio]Ordered By: Nimisha Wilkes on 05-13-2023 Erythrocyte distribution width (RBC) [Ratio]13.0 %11.9-15.3FDoctors HospitalGlucose [Mass/volume] in Serum or PlasmaOrdered By: Nimisha Wilkes on 08-00-3087Ysvykne [Mass/Vol]99 mg/uK28-929UhvaxyknuMorrow County HospitalComment on above:ADA recommended reference rangeRandom Glucose Reference Range is dependent on time and content of last meal. Glucose of more than 200 mg/dL in a nonstressed, ambulatory subject supports the diagnosisof Diabetes Mellitus.HCG ( test) IA.rapid Ql (U)Ordered By: Sukhdeep Nielson on 67-71-2349RTG ( test) Ql (U)NegativeMorrow County Hospital Hematocrit Auto (Bld) [Volume fraction]Ordered By: Nimisha Wilkes on 05-13-2023 Hematocrit (Bld) [Volume fraction]40.0 %34.0-46.4FDoctors HospitalHemoglobin [Mass/volume] in BloodOrdered By: Nimisha Wilkes on 05-13-2023 Hemoglobin (Bld) [Mass/Vol]13.4 g/dL11.8-15.4FDoctors Hospital Ketones Auto test strip (U) [Mass/Vol]Ordered By: Sukhdeep Nielson on 05-13-2023 Ketones (U) [Mass/Vol]NegativeNegativeMorrow County Hospital Laboratory - UrinalysisOrdered By: Sukhdeep Nielson on 61-84-6700Mnvrumr casts LM Ql (Urine sed)0-8 [LPF]0-8[facility] HospitalLactate [Moles/volume] in Serum or PlasmaOrdered By: Nimisha Wilkes on 16-82-9637Uuauemz [Moles/Vol] 0.6 mmol/L0.5-2.2FDoctors HospitalLeukocytes [#/volume] corrected for nucleated erythrocytes in Blood by Automated counOrdered By: Nimisha Wilkes on 75-65-8457RCN corrected for nucl RBC Auto (Bld) [#/Vol]9.0 10*3/uL3.8-11.6FDoctors HospitalLymphocytes Auto (Bld) [#/Vol] Ordered By: Nimisha Wilkes on 45-52-4996Aaopauvafeh (Bld) [#/Vol]2.6 10*3/uL 1.00-4.8[facility] HospitalLymphocytes/100 WBC Auto (Bld)Ordered By: Nimisha Wilkes on 37-83-4049Wqmbxqivoes/100 WBC (Bld)28.9 %.[facility] HospitalMCH Auto (RBC) [Entitic mass]Ordered By: Nimisha Wilkes on 88-85-1358OCZ (RBC) [Entitic mass]28.7 pg24.7-34.3FDoctors HospitalMCHC Auto (RBC) [Mass/Vol]Ordered By: Nimisha Wilkes on 12-70-3687PYHX (RBC) [Mass/Vol]33.5 g/dL32.0-35.0[facility] HospitalMCV Auto (RBC) [Entitic vol]Ordered By: Nimisha Wilkes on 72-25-5966WTD (RBC) [Entitic vol]85.7 iJ88-906GmeqnccanMorrow County HospitalMonocyte distribution width [Entitic volume] in Blood by AutomatedOrdered By: Nimisha Wilkes on 05-13-2023 Monocyte distribution width Auto (Bld) [Entitic vol]18.06 %0.00-20.00[facility] HospitalMonocytes Auto (Bld) [#/Vol]Ordered By: Nimisha Wilkes on 30-64-7671Krclichvc (Bld) [#/Vol]0.6 10*3/uL0.0-0.8[facility] HospitalMonocytes/100 WBC Auto (Bld)Ordered By: Nimisha Wilkes on 05-13-2023 Monocytes/100 WBC (Bld)6.1 %.[facility] HospitalNeutrophils Auto (Bld) [#/Vol]Ordered By: Nimisha Wilkes on 31-18-5207Epeiijyqsce (Bld) [#/Vol] 5.7 10*3/uL1.8-7.7FDoctors HospitalNeutrophils/100 WBC Auto (Bld)Ordered By: Nimisha Wilkes on 01-61-2184Tvdkwfnuedr/100 WBC (Bld)63.6 %. [facility] HospitalNitrite Test strip Ql (U)Ordered By: Sukhdeep Nielson on 69-41-5443Jqewqgk Ql (U)NegativeNegativeMorrow County HospitalNo Panel InformationOrdered By: Nimisha Wilkes on 71-61-1285Fynctipcx GFR (CKD-EPI)> 60.0 mL/MinMorrow County HospitalPharmacy Creatinine Clearance (Nosn518.58[facility] HospitalNucleated erythrocytes [Presence] in Blood by Automated countOrdered By: Nimisha Wilkes on 05-13-2023 Nucleated RBC Auto Ql (Bld)0.1 /100{WBC}0-0.5FDoctors Hospital Platelet mean volume Auto (Bld) [Entitic vol]Ordered By: Nimisha Wilkes on 45-87-7928Xsxyfsug mean volume (Bld) [Entitic vol]8.5 fL6.3-10.7FDoctors HospitalPlatelets Auto (Bld) [#/Vol]Ordered By: Nimisha Wilkes on 42-22-0987Mloqxvgiu (Bld) [#/Vol]335 10*3/hX117-222SalzwkelsMorrow County HospitalPotassium [Moles/volume] in Serum or PlasmaOrdered By: Nimisha Wilkes on 54-98-8495Uemoeyrpu [Moles/Vol]3.5 mmol/L3.5-5.1FDoctors HospitalProtein Auto test strip (U) [Mass/Vol]Ordered By: Sukhdeep Nielson on 87-93-2442Qkbrgcm (U) [Mass/Vol]NegativeNegativeMorrow County HospitalRBC Auto (Bld) [#/Vol]Ordered By: Nimisha Wilkes on 10-91-3220XAR (Bld) [#/Vol]4.67 10*6/uL3.60-5.00[facility] Hospitalerum or plasma anion gap determinationOrdered By: Nimisha Wilkes on 16-59-1239Nptkq gap [Moles/Vol]12.4 mmol/L6.0-15.0[facility] Hospitalodium [Moles/volume] in Serum or PlasmaOrdered By: Nimisha Wilkes on 40-45-0921Pxcecn [Moles/Vol]139 mmol/A380-332QkfeusqhpHenry County Hospitalpecific gravity Auto test strip (U) [Rel density]Ordered By: Sukhdeep Nielson on 31-99-4674Xjwjhcjh gravity (U) [Rel density]1.0201.001-1.030[facility] Squamous epithelial cells detection in urine sediment by light microscopyOrdered By: Sukhdeep Nielson on 93-15-5356Jhpejgezug cells.squamous LM Ql (Urine sed)3-4 [HPF]0-2FDoctors HospitalUrea nitrogen [Mass/volume] in Serum or PlasmaOrdered By: Nimisha Wilkes on 63-78-4072Fmab nitrogen [Mass/Vol]10 mg/dL 7-25[facility] HospitalUrine bacteria detection by automated methodOrdered By: Sukhdeep Nielson on 50-78-0344Kqdymkpq Auto Ql (U)None seenNone SeenMorrow County HospitalUrine clarity by refractometry automated Ordered By: Sukhdeep Nielson on 13-27-1266Vkynybd Refractometry automated (U)Clear ClearMorrow County HospitalUrine culture routineOrdered By: Sukhdeep Nielson on 18-84-2739Dywnfsam identified Cx Nom (U)2 DaysMorrow County HospitalUrine glucose measurement by automated test strip (mass/volume)Ordered By: Sukhdeep Nielson on 81-76-0360Sdypwkn Auto test strip (U) [Mass/Vol]Normal mg/dL NormalMorrow County HospitalUrine hemoglobin detection by automated test stripOrdered By: Sukhdeep Nielson on 52-75-1370Nmvuegcsjp Auto test strip Ql (U)TraceNegativeMorrow County HospitalUrine leukocyte esterase detection by automated test stripOrdered By: Sukhdeep Nielson on 92-67-3527Lxpftjzds esterase Auto test strip Ql (U)3+NegativeMorrow County Hospital Urobilinogen Auto test strip (U) [Mass/Vol]Ordered By: Sukhdeep Nielson on 95-06-4743Jkwccmzgytkp (U) [Mass/Vol]Normal mg/dLNormalMorrow County HospitalWBC Auto (Bld) [#/Vol]Ordered By: Nimisha Wilkes on 92-41-5333ALO (Bld) [#/Vol]9.0 10*3/uL3.8-11.6FDoctors HospitalpH Auto test strip (U)Ordered By: Sukhdeep Nielson on 63-92-6135eC (U)5.5 [pH]5.0-9.0[facility] HospitalBasophils Auto (Bld) [#/Vol]Ordered By: Markie Alegria on 50-53-1574Gsuypihyz (Bld) [#/Vol]0.1 10*3/uL0.0-0.2FDoctors HospitalBasophils/100 WBC Auto (Bld)Ordered By: Markie Alegria on 05-07-2023 Basophils/100 WBC (Bld)0.6 %.[facility] HospitalC reactive protein [Mass/volume] in Serum or PlasmaOrdered By: Markie Alegria on 44-69-5840GOT [Mass/Vol]9.4 mg/dL0.0-0.5FDoctors HospitalCalcium [Mass/volume] in Serum or PlasmaOrdered By: Markie Alegria 01-87-1016Grtmggf [Mass/Vol]9.5 mg/dL8.6-10.3FDoctors HospitalCarbon dioxide, total [Moles/volume] in Serum or PlasmaOrdered By: Markie Alegria on 82-59-6829XX0 [Moles/Vol]25.4 mmol/L21.0-31.0[facility] HospitalChloride [Moles/volume] in Serum or PlasmaOrdered By: Markie Alegria 25-64-3424Wjuwehvz [Moles/Vol]102 mmol/B44-830HnqvlcqjsMorrow County HospitalCreatinine [Mass/volume] in Serum or PlasmaOrdered By: Markie Alegria 29-97-1209Boqpcfppqt [Mass/Vol]0.59 mg/dL0.60-1.20[facility] HospitalEosinophils Auto (Bld) [#/Vol]Ordered By: Markie Alegria 09-97-9625Lpvildmyvyo (Bld) [#/Vol]0.1 10*3/uL0.0-0.45[facility] HospitalEosinophils/100 WBC Auto (Bld) Ordered By: Markie Alegria 32-45-6503Vlykexufaab/100 WBC (Bld)0.5 %.[facility] HospitalErythrocyte distribution width Auto (RBC) [Ratio]Ordered By: Markie Alegria 92-57-6338Qxlpibddbkb distribution width (RBC) [Ratio]13.1 % 11.9-15.3FDoctors HospitalErythrocyte sedimentation rate by Photometric methodOrdered By: Markie Alegria 24-57-3323SMB Photometric method (Bld) [Velocity]65 mm/hr0-19[facility] HospitalGlucose [Mass/volume] in Serum or PlasmaOrdered By: Markie Alegria 43-30-1719Pgbxfey [Mass/Vol]107 mg/gV19-039QfqxkqunwMorrow County HospitalComment on above:ADA recommended reference rangeRandom Glucose Reference Range is dependent on time and content of last meal. Glucose of more than 200 mg/dL in a nonstressed, ambulatory subject supports the diagnosisof Diabetes Mellitus.Hematocrit Auto (Bld) [Volume fraction]Ordered By: Markie Alegria on 10-66-0156Hjiuawpnjh (Bld) [Volume fraction]37.2 %34.0-46.4FDoctors HospitalHemoglobin [Mass/volume] in BloodOrdered By: Markie Alegria on 60-12-6796Czkiklfwxe (Bld) [Mass/Vol]12.1 g/dL11.8-15.4FDoctors HospitalLeukocytes [#/volume] corrected for nucleated erythrocytes in Blood by Automated coun Ordered By: Markie Alegria on 53-24-3136KAG corrected for nucl RBC Auto (Bld) [#/Vol]9.7 10*3/uL3.8-11.6FDoctors HospitalLymphocytes Auto (Bld) [#/Vol]Ordered By: Markie Alegria on 59-26-3541Nesbxkmconq (Bld) [#/Vol]2.2 10*3/uL1.00-4.8[facility] HospitalLymphocytes/100 WBC Auto (Bld) Ordered By: Markie Alegria on 72-01-5283Ycqorbplezc/100 WBC (Bld)22.5 %.[facility]H Auto (RBC) [Entitic mass]Ordered By: Markie Alegria on 52-01-2758MYN (RBC) [Entitic mass]28.1 pg24.7-34.3FDoctors HospitalMCHC Auto (RBC) [Mass/Vol]Ordered By: Markie Alegria on 46-12-1058LUIC (RBC) [Mass/Vol]32.6 g/dL32.0-35.0[facility] HospitalMCV Auto (RBC) [Entitic vol]Ordered By: Markie Alegria on 16-69-3250AMW (RBC) [Entitic vol]86.3 qV64-158UvbqmyxpzMorrow County HospitalMonocyte distribution width [Entitic volume] in Blood by AutomatedOrdered By: Markie Alegria on 10-98-8154Pmyvtifn distribution width Auto (Bld) [Entitic vol]22.66 %0.00-20.00[facility] HospitalComment on above:For adults in ED, MDW > 20.0 may be associated with a higher risk of sepsis during the first 12 hrs of hospital admission Monocytes Auto (Bld) [#/Vol]Ordered By: Markie lAegria on 92-90-6259Qevykhzxf (Bld) [#/Vol]0.8 10*3/uL0.0-0.8[facility] HospitalMonocytes/100 WBC Auto (Bld)Ordered By: Markie Alegria on 66-87-2669Zeixtkzku/100 WBC (Bld)7.8 % .[facility] HospitalNeutrophils Auto (Bld) [#/Vol]Ordered By: Markie Alegria on 58-40-6303Uezztcfrdti (Bld) [#/Vol]6.7 10*3/uL1.8-7.7FDoctors HospitalNeutrophils/100 WBC Auto (Bld)Ordered By: Markie Alegria on 66-71-5368Nocpuyusdsj/100 WBC (Bld)68.6 %.[facility] HospitalNo Panel InformationOrdered By: Markie Alegria on 83-52-2736Lwjlgmkvq GFR (CKD-EPI)> 60.0 mL/MinMorrow County HospitalPharmacy Creatinine Clearance (Chem 147.26[facility] HospitalNucleated erythrocytes [Presence] in Blood by Automated countOrdered By: Markie Alegria on 27-63-2196Hvacmnfgx RBC Auto Ql (Bld)0.0 /100{WBC}0-0.5FDoctors HospitalPlatelet mean volume Auto (Bld) [Entitic vol]Ordered By: Markie Alegria on 57-71-4173Jnlqenlm mean volume (Bld) [Entitic vol]9.1 fL6.3-10.7FDoctors Hospital Platelets Auto (Bld) [#/Vol]Ordered By: Markie Alegria on 04-62-3369Vyicyhbzt (Bld) [#/Vol]249 10*3/yI432-282UxfldwqlzMorrow County HospitalPotassium [Moles/volume] in Serum or PlasmaOrdered By: Markie Alegria on 04-52-4837Kqiflkuzx [Moles/Vol]4.0 mmol/L3.5-5.1FDoctors HospitalRBC Auto (Bld) [#/Vol]Ordered By: Markie Alegria on 26-88-8231MCV (Bld) [#/Vol]4.31 10*6/uL 3.60-5.00[facility] Hospitalerum or plasma anion gap determinationOrdered By: Markei Alegria on 52-49-9005Kicdy gap [Moles/Vol]TNP [facility] HospitalComment on above:Test not performedSodium [Moles/volume] in Serum or PlasmaOrdered By: Markie Alegria on 13-46-2814Ywulmg [Moles/Vol]133 mmol/Y522-904SieevcxswMorrow County HospitalUrea nitrogen [Mass/volume] in Serum or PlasmaOrdered By: Markie Alegria on 01-93-4828Zwqa nitrogen [Mass/Vol]12 mg/dL7-25[facility] HospitalWBC Auto (Bld) [#/Vol]Ordered By: Markie Alegria on 91-46-5227OGV (Bld) [#/Vol]9.7 10*3/uL 3.8-11.6FDoctors HospitalAlanine aminotransferase [Enzymatic activity/volume] in Serum or PlasmaOrdered By: Jonatan Londono on 34-37-3327DOO [Catalytic activity/Vol]22 U/L7-52[facility] HospitalAlbumin [Mass/volume] in Serum or Plasma by Bromocresol green (BCG) dye binding metho Ordered By: Jonatan Londono on 99-21-0443Fmauquu BCG dye [Mass/Vol]4.4 g/dL3.5-5.7 [facility] HospitalAlkaline phosphatase [Enzymatic activity/volume] in Serum or PlasmaOrdered By: Jonatan Londono on 04-56-2568VGY [Catalytic activity/Vol]79 U/F96-367IuzwdozthMorrow County HospitalAspartate aminotransferase [Enzymatic activity/volume] in Serum or PlasmaOrdered By: Jonatan Londono on 79-41-9038ONE [Catalytic activity/Vol]17 U/J70-19MeufiqbypMorrow County HospitalBasophils Auto (Bld) [#/Vol]Ordered By: Jonatan Londono on 24-85-6873Ioudikuyu (Bld) [#/Vol]0.0 10*3/uL0.0-0.2FDoctors HospitalBasophils/100 WBC Auto (Bld)Ordered By: Jonatan Londono on 03-27-2023 Basophils/100 WBC (Bld)0.2 %.[facility] HospitalBilirubin.total [Mass/volume] in Serum or PlasmaOrdered By: Jonatan Londono on 46-99-9805Vqpsdnsob [Mass/Vol]0.3 mg/dL0.3-1.0[facility] HospitalCalcium [Mass/volume] in Serum or PlasmaOrdered By: Jonatan Londono on 24-54-6701Splnqtw [Mass/Vol]9.0 mg/dL8.6-10.3FDoctors HospitalCarbon dioxide, total [Moles/volume] in Serum or PlasmaOrdered By: Jonatan Londono on 03-27-2023 CO2 [Moles/Vol]24.1 mmol/L21.0-31.0[facility] HospitalChloride [Moles/volume] in Serum or PlasmaOrdered By: Jonatan Londono on 90-84-4400Quhlbnhg [Moles/Vol]104 mmol/S46-043HchceniydMorrow County HospitalCreatinine [Mass/volume] in Serum or PlasmaOrdered By: Jonatan Londono on 03-27-2023 Creatinine [Mass/Vol]0.71 mg/dL0.60-1.20[facility] Eosinophils Auto (Bld) [#/Vol]Ordered By: Jonatan Londono on 20-69-7861Jkmrysszeqr (Bld) [#/Vol]0.1 10*3/uL0.0-0.45[facility] Eosinophils/100 WBC Auto (Bld)Ordered By: Jonatan Londono on 03-27-2023 Eosinophils/100 WBC (Bld)0.4 %.[facility] HospitalErythrocyte distribution width Auto (RBC) [Ratio]Ordered By: Jonatan Londono on 03-27-2023 Erythrocyte distribution width (RBC) [Ratio]13.1 %11.9-15.3FDoctors HospitalGlobulin Calc (S) [Mass/Vol]Ordered By: Jonatan Londono on 40-11-6840Mqjmpejx (S) [Mass/Vol]3.2 g/dLMorrow County Hospital Glucose [Mass/volume] in Serum or PlasmaOrdered By: Jonatan Londono on 03-27-2023 Glucose [Mass/Vol]214 mg/vV06-164BbmirgrzhMorrow County HospitalComment on above:ADA recommended reference rangeRandom Glucose Reference Range is dependent on time and content of last meal. Glucose of more than 200 mg/dL in a nonstressed, ambulatory subject supports the diagnosisof Diabetes Mellitus. Hematocrit Auto (Bld) [Volume fraction]Ordered By: Jonatan Londono on 03-27-2023 Hematocrit (Bld) [Volume fraction]37.4 %34.0-46.4FDoctors HospitalHemoglobin [Mass/volume] in BloodOrdered By: Jonatan Londono on 03-27-2023 Hemoglobin (Bld) [Mass/Vol]12.4 g/dL11.8-15.4FDoctors Hospital Leukocytes [#/volume] corrected for nucleated erythrocytes in Blood by Automated counOrdered By: Jonatan Londono on 91-20-3669YZD corrected for nucl RBC Auto (Bld) [#/Vol]17.2 10*3/uL3.8-11.6FDoctors HospitalLymphocytes Auto (Bld) [#/Vol]Ordered By: Jonatan Londono on 11-27-4250Ncfyqaqeyqx (Bld) [#/Vol]3.6 10*3/uL1.00-4.8[facility] HospitalLymphocytes/100 WBC Auto (Bld)Ordered By: Jonatan Londono on 02-34-1858Qxynqrrtyot/100 WBC (Bld)21.1 % .[facility] Auto (RBC) [Entitic mass]Ordered By: Jonatan Londono on 13-40-2946QCJ (RBC) [Entitic mass]28.3 pg24.7-34.3FPremier Health Atrium Medical CenterHC Auto (RBC) [Mass/Vol]Ordered By: Jonatan Londono on 72-43-6420MQXD (RBC) [Mass/Vol]33.1 g/dL32.0-35.0[facility] HospitalMCV Auto (RBC) [Entitic vol]Ordered By: Jonatan Londono on 02-20-9549YZP (RBC) [Entitic vol]85.6 zK46-031MnhrzsnqnMorrow County HospitalMonocyte distribution width [Entitic volume] in Blood by AutomatedOrdered By: Jonatan Londono on 84-63-0796Zyfnzhah distribution width Auto (Bld) [Entitic vol]22.21 % 0.00-20.00[facility] HospitalComment on above:For adults in ED, MDW > 20.0 may be associated with a higher risk of sepsis during the first 12 h rs of hospital admissionMonocytes Auto (Bld) [#/Vol]Ordered By: Jonatan Londono on 36-72-7889Oajentsbc (Bld) [#/Vol]0.6 10*3/uL0.0-0.8[facility] HospitalMonocytes/100 WBC Auto (Bld)Ordered By: Jonatan Londono on 03-27-2023 Monocytes/100 WBC (Bld)3.6 %.[facility] HospitalNeutrophils Auto (Bld) [#/Vol]Ordered By: Jonatan Londono on 64-43-6163Njqpzyfvkav (Bld) [#/Vol] 12.8 10*3/uL1.8-7.7FDoctors HospitalNeutrophils/100 WBC Auto (Bld)Ordered By: Jonatan Londono on 27-84-9716Nusahrgnxbl/100 WBC (Bld)74.7 %. [facility] HospitalNo Panel InformationOrdered By: Jonatan Londono on 67-59-9050Tqantgozd GFR (CKD-EPI)> 60.0 mL/MinMorrow County HospitalPharmacy Creatinine Clearance (Ksqi474.59[facility] Nucleated erythrocytes [Presence] in Blood by Automated countOrdered By: Jonatan Londono on 61-27-8037Hjhvtvsel RBC Auto Ql (Bld)0.1 /100{WBC}0-0.5FDoctors HospitalPlatelet mean volume Auto (Bld) [Entitic vol]Ordered By: Jonatan Londono on 91-50-4354Gyzqwyud mean volume (Bld) [Entitic vol]8.3 fL 6.3-10.7FDoctors HospitalPlatelets Auto (Bld) [#/Vol]Ordered By: Jonatan Londono on 50-08-1414Dtiqamobr (Bld) [#/Vol]336 10*3/dB645-585FxwbripdeMorrow County HospitalPotassium [Moles/volume] in Serum or PlasmaOrdered By: Jonatan Londono on 88-59-0669Yskhwfvne [Moles/Vol]3.3 mmol/L3.5-5.1FDoctors HospitalProtein [Mass/volume] in Serum or PlasmaOrdered By: Jonatan Londono on 20-89-6966Mjxwtan [Mass/Vol]7.6 g/dL6.4-8.9[facility] HospitalRBC Auto (Bld) [#/Vol]Ordered By: Jonatan Londono on 22-44-3029XNI (Bld) [#/Vol]4.37 10*6/uL3.60-5.00[facility] Hospitalerum or plasma albumin/globulin mass ratioOrdered By: Jonatan Londono on 03-27-2023 Albumin/Globulin [Mass ratio]1.4 {ratio}[facility] Hospitalerum or plasma anion gap determinationOrdered By: Jonatan Londono on 86-42-7509Taqtq gap [Moles/Vol]12.2 mmol/L6.0-15.0[facility] Hospitalodium [Moles/volume] in Serum or PlasmaOrdered By: Jonatan Londono on 54-71-8449Lqezva [Moles/Vol]137 mmol/W246-350RgchpyelaMorrow County HospitalUrea nitrogen [Mass/volume] in Serum or PlasmaOrdered By: Jonatan Londono on 22-64-1528Gvtw nitrogen [Mass/Vol]15 mg/dL7-25[facility] HospitalWBC Auto (Bld) [#/Vol]Ordered By: Jonatan Londono on 57-06-0868GQS (Bld) [#/Vol]17.2 10*3/uL 3.8-11.6FDoctors HospitalAlanine aminotransferase [Enzymatic activity/volume] in Serum or PlasmaOrdered By: Uriah Skinner on 67-03-4770BER [Catalytic activity/Vol]26 U/L7-52[facility] HospitalVitamin B12 ser/plasOrdered By: Uriah Skinner on 92-46-6457Mxxlwntlp (Vitamin B12) [Mass/Vol]364 pg/wS175-330SrmxfztxeMorrow County HospitalCOVID + FLU Quick Testingon 40-02-2906MKGE-CoV-2 (COVID-19) RNA VANNESA+probe Ql (Unsp spec)Negative [facility] [employer] Other COVID + FLU Quick TestingNegativeNoexcelsior [facility] Ibetor Other Quick Strepon 12-11-2022S. pyogenes Org specific cx Ql (Throat)PositiveMillstone Ibetor Other Quick StrepMillstone Ibetor Other HCG ( test) IA.rapid Ql (U)Ordered By: Johann Moe on 93-65-1958LLW ( test) Ql (U)NegativeMorrow County HospitalCB AUTO DIFFon 84-55-3225URHY #0.0 103/ulNormal0.0-0.1The [facility] ClinicComment on above:Performed By: #### CBC #### [facility] [address] [address] [address] Jorge Luis FerrisBasophils/100 WBC (Bld)0.2 %Normal0.2-2.0[facility] Comment on above:Performed By: #### CBC #### [facility] [address] [address] [address] Jorge Luis Be #0.0 103/ulNormal0.0-0.7The [facility] ClinicComment on above: Performed By: #### CBC #### [facility] [address] [address] [address] Jorge Luis Herzogosinophils/100 WBC (Bld)0.5 %Critically low0.9-7.0The [facility] ClinicComment on above:Performed By: #### CBC #### [facility] [address] [address] [address] Jorge Luis Herzogrythrocyte distribution width (RBC) [Ratio]12.4 %Yrykhg54.0-15.0 The [facility] ClinicComment on above:Performed By: #### CBC #### [facility] [address] [address] [address] Jorge Luis FerrisHematocrit (Bld) [Volume fraction]37.4 %Yeotoj92.0-48.0The [facility]opathic ClinicComment on above:Performed By: #### CBC #### [facility] [address] [address] [address] Jorge Luis FerrisHemoglobin (Bld) [Mass/Vol]12.4 g/pXHosvio48.0-16.0The [facility] on above:Performed By: #### CBC #### [facility] [address] [address] [address] Jorge Luis Miller #0.03 10e3/ulNormal0.00-0.03The [facility] on above:Performed By: #### CBC #### [facility] [address] [place] [address] Dr. Jorge Luis Miller %0.4 %Normal0.0-0.5The [facility] on above: Performed By: #### CBC #### [facility] [address] [place] [address] Dr. Jorge Luis Dos Santos #2.5 103/ulNormal1.2-3.8The [facility] ClinicCommckenzie memorial hospital on above:Performed By: #### CBC #### [facility] [address] [place] [address] Dr. Jorge Luis Bassetthocytes/100 WBC (Bld)30.4 %Hionxl69.5-60.0The [facility] on above:Performed By: #### CBC #### [facility] [address] [place] [address] Dr. Jorge Luis ParsonUAL DIFF REQNONormalThe [facility] ClinicComment on above: Performed By: #### CBC #### [facility] [address] [place] [address] Dr. Jorge Luis Rehman (RBC) [Entitic mass]28.6 ppOmtuti05.7-34.0The [facility] on above:Performed By: #### CBC #### [facility] [address] [place] [address] Dr. Jorge Luis Rehman (RBC) [Mass/Vol]33.2 g/ySUakhsd78.9-35.2The [facility] HospitalComment on above:Performed By: #### CBC #### [facility] [address] [address] [address] Jorge Luis Vela (RBC) [Entitic vol]86.2 tYXgjpss69.0-99.0The [facility] ClinicComment on above:Performed By: #### CBC #### [facility] [address] [place] [address] Dr. Jorge Luis Lo #0.5 103/ulNormal0.3-0.8The [facility] ClinicComment on above:Performed By: #### CBC #### [facility] [address] [place] [address] Dr. Jorge Luis Caroocytes/100 WBC (Bld)5.4 %Normal1.7-12.0The [facility] on above:Performed By: #### CBC #### [facility] [address] [place] [address] Dr. Jorge Luis Leyva #5.2 103/ulNormal1.4-6.5The [facility] ClinicComment on above:Performed By: #### CBC #### [facility] [address] [place] [address] Dr. Jorge Luis Harrisutrophils/100 WBC (Bld)63.1 %Exffng50.0-75.0The [facility] ClinicCommckenzie memorial hospital on above:Performed By: #### CBC #### [facility] [address] [place] [address] Dr. Jorge Luis Hurleylet mean volume (Bld) [Entitic vol]10.3 fLNormal9.5-13.5The [facility] ClinicComment on above:Performed By: #### CBC #### [facility] [address] [place] [address] Dr. Jorge Luis CookT236 103/drYxqsty277-272Rpm [facility] ClinicComment on above: Performed By: #### CBC #### [facility] [address] [place] [address] Dr. Jorge Luis FerrisRBC4.34 106/ulNormal4.20-5.40The [facility] ClinicComment on above:Performed By: #### CBC #### [facility] [address] [place], [place] [address] Dr. Jorge Luis FerrisWBC8.3 103/ulNormal4.0-11.0The [facility] on above: Performed By: #### CBC #### [facility] [address] [place], [place] [address] Dr[address] Jorge Luis FerrisCT CSPINE WO CONon 62-59-8996XQ CSPINE WO CONEXAMINATION: CT CSPINE WO CON HISTORY: Paresthesia of [...] Electronically authenticated by: NATALIE HERNANDEZ Date: 2022-06-06 20:03[facility] HEAD WO CONon [id number] HEAD WO CONEXAMINATION: CT HEAD WO CON HISTORY: Paresthesia of [...] Electronically authenticated by: BEKA UNLU Date: 2022-06-06 20:06NormMarietta Memorial Hospital HospitalCULTURE URINEon [id number] URINECulture Observations: LIGHT GROWTH OF MIXED GENITAL RISA. NO POTENTIAL PATHOGENS SEEN.NormalTrumbull Memorial Hospital HospitalComment on above:Performed By: #### [id number] #### [facility] [address] [address] [address] Jorge Luis Ortiz URINE PROFILEon 66-31-8330Bhavbtnfb Ql (U)NegativeNormal NEGATIVEHolmes County Joel Pomerene Memorial HospitalComment on above:Performed By: #### [id number] #### [facility] [address] [place] [address] Dr. Jorge Luis FerrisClarity (U)CLEARNormalCLEARHolmes County Joel Pomerene Memorial HospitalComment on above: Performed By: #### [id number] #### [facility] [address] [place] [address] Dr. Jorge Luis Macario (U)YELLOWNormalYELLOWHolmes County Joel Pomerene Memorial HospitalComment on above: Performed By: #### [id number] #### [facility] [address] [place] [address] Dr. Jorge Luis Rodriguez micrscopic examination will be performed if indicated. NormalHolmes County Joel Pomerene Memorial HospitalComment on above:Performed By: #### [id number] #### [facility] [address] [place] [address] Dr. Jorge Luis FerrisGlucose Ql (U)NegativeNormalNEGATIVEHolmes County Joel Pomerene Memorial HospitalComment on above:Performed By: #### [id number] #### [facility] [address] [place] [address] Dr. Jorge Luis FerrisHemoglobin Ql (U)NegativeNormalNEGATIVEPromedica Fostoria [facility] on above:Performed By: #### [id number] #### [facility] [address] [place] [address] Dr. Jorge Luis FerrisKetones Ql (U)NegativeNormalNEGATIVEHolmes County Joel Pomerene Memorial HospitalComment on above:Performed By: #### [id number] #### [facility] [address] [place] [address] Dr. Jorge Luis FerrisLEUKOCYTESMODERATEAbnormalNEGATIVEThe [facility] ClinicComment on above:Performed By: #### [id number] #### [facility] [address] [place] [address] Dr. Jorge Luis Castrotrite Ql (U)NegativeNormalNEGATIVEThe [facility] ClinicComment on above:Performed By: #### [id number] #### [facility] [address] [place] [address] Dr. Jorge Luis FerrispH (U)7.0 [pH]Normal5-9The [facility] ClinicComment on above: Performed By: #### [id number] #### [facility] [address] [place] [address] Dr. Jorge Luis FerrisSPEC GRAVITY1.289Dclnlp8.005-<=1.025The [facility] ClinicComment on above:Performed By: #### [id number] #### [facility] [address] [place] [address] Dr. Jorge Luis David PROTEINTRACENormalNEGATIVE/ TRACEThe [facility] ClinicComment on above:Performed By: #### [id number] #### [facility] [address] [place] [address] Dr. Jorge Luis Case MICRO INDINDICATEDNormalThe [facility]opathic ClinicComment on above: Performed By: #### [id number] #### [facility] [address] [place] [address] Dr. Jorge Luis Kuoinogen Qn (U)0.2 {Álvaro'U}/dLNormal0.2 - 1.0The [facility] ClinicComment on above:Performed By: #### [id number] #### [facility] [address] [place] [address] Dr. Jorge Luis SmithG HCG QUALon 64-46-1362UETUNUVNU, QUALNegativeNormalNEGATIVE The [facility] ClinicComment on above:Performed By: #### [id number] #### [facility] [address] [address] [address] Jorge Luis FerrisPROF CHEM 8 (BAS METB)on 28-08-2064Qczqf gap [Moles/Vol]9.2 mmol/LNormalThe [facility] ClinicComment on above:Performed By: #### BMP, TSH #### [facility] [address] [address] [address] Jorge Luis FerrisCalcium [Mass/Vol]8.9 mg/dLNormal8.5-10.1The [facility] Comment on above:Performed By: #### BMP, TSH #### [facility] [address] [address] [address] Jorge Luis FerrisChloride [Moles/Vol]103 mmol/YFnwovs40-912MfhHolmes County [facility] Comment on above:Performed By: #### BMP, TSH #### [facility] [address] [address] [address] Jorge Luis FerrisCO2 [Moles/Vol]26.4 mmol/RCnkcnw18.0-32.0[facility] Comment on above:Performed By: #### BMP, TSH #### [facility] [address] [address] [address] Jorge Luis FerrisCreatinine [Mass/Vol]0.64 mg/dLNormal0.55-1.02The [facility] ClinicComment on above:Performed By: #### BMP, TSH #### [facility] [address] [address] [address] Jorge Luis HerzogGFR-AF TURKISH>60Normal>=60The [facility] ClinicComment on above:Performed By: #### BMP, TSH #### [facility] [address] [address] [address] Jorge Luis HerzogGFR-NON AF TURKISH>60Normal>=60The [facility] ClinicComment on above:Performed By: #### BMP, TSH #### [facility] [address] [address] [address] Jorge Luis FerrisGlucose [Mass/Vol]97 mg/rLLmkjpt84-065ZniHolmes County [facility] Comment on above:Performed By: #### BMP, TSH #### [facility] [address] [address] [address] Jorge Luis FerrisPotassium [Moles/Vol]3.6 mmol/LNormal3.5-5.1The [facility] Comment on above:Performed By: #### BMP, TSH #### [facility] [address] [address] [address] Jorge Luis FerrisSodium [Moles/Vol]135 mmol/LCritically abi345-417Qdi [facility] ClinicComment on above:Performed By: #### BMP, TSH #### [facility] [address] [address] [address] Jorge Luis FerrisUrea nitrogen [Mass/Vol]11.0 mg/dLNormal7.0-18.0The [facility] ClinicComment on above:Performed By: #### BMP, TSH #### [facility] [address] [address] [address] Jorge Luis Sutton nitrogen/Creatinine [Mass ratio]17.2 mg/mgNoOhioHealth Marion General HospitalComment on above:Performed By: #### BMP, TSH #### [facility] [address] [address] [address] Jorge Luis Mcdaniel 63-26-0613DKP2.148 uIU/mLNormal0.358-3.740The [facility] ClinicComment on above:Performed By: #### BMP, TSH #### [facility] [address] [address] [address] Jorge Luis Powell MICROSCOPIC ONLYon 59-08-2427RMFKODAMKXHNIPccxbhtlPCRZ SEEN The [facility] ClinicComment on above:Performed By: #### [id number] #### [facility] [address] [place] [address] Dr. Jorge Luis Duron identified Cx Nom (U)INDICATEDOhioHealth Dublin Methodist HospitalComment on above:Performed By: #### [id number] #### [facility] [address] [place] [address] Dr. Jorge Luis Stern SEENNormalNONE SEENThe [facility] ClinicComment on above:Performed By: #### [id number] #### [facility] [address] [address] [address] Jorge Luis FerrisCrystals LM Nom (Urine sed)NONE SEENNormalNONE SEENThe [facility] ClinicComment on above:Performed By: #### [id number] #### [facility] [address] [place] [address] Dr. Kang ChangEpithelial cells LM Ql (Urine sed)MANYAbnormalNONE SEEN /RAREThe [facility] ClinicCommckenzie memorial hospital on above:Performed By: #### [id number] #### [facility] [address] [place] [address] Dr. Jorge Luis KrishnanCOUSLARGEAbnormalNONE SEENThe [facility] ClinicCommckenzie memorial hospital on above:Performed By: #### [id number] #### [facility] [address] [place] [address] Dr. Jorge Luis FerrisUwdpjEAA4-1Axidkm1-3Xeo [facility] on above:Performed By: #### [id number] #### [facility] [address] [place] [address] Dr. Jorge Luis FerrisWBC5-10AbnormalNONE SEENOur [facility] of [facility] on above: Performed By: #### [id number] #### [facility] [address] [place] [address] Dr. Jorge Luis Mcdaniel 03-76-9913NSV5.687 uIU/mLNormal0.358-3.740The [facility] ClinicCommckenzie memorial hospital on above:Performed By: #### TSH #### [facility] [address] [place] [address] Dr. Jorge Luis FerrisCT ABDOMEN WO/W CONon 96-73-2843NY ABDOMEN WO/W CONEXAMINATION: CT ABDOMEN WO/W CON HISTORY: Chronic, intermittent [...] Electronically authenticated by: LEILANI ALANIS Date: 2022-02-05 07:28Ohio[facility] Dublin Methodist HospitalAmylaseon 57-98-9830Kpnluxo65 U/MJcsedf69-386 U/[employer] Other Hepatic Panelon 66-19-4640Vrzehsd [Mass/Vol]3.966878 g/dLNormal3.2-5.5 g/dLNoqualifyor Other albumin/Globulin [Mass ratio]1.2 {ratio}[employer] Other aLP [Catalytic activity/Vol]79 U/KLmfeil42-41 U/[employer] Other aLT [Catalytic activity/Vol]73 U/QMeil57-94 U/[employer] Other aST [Catalytic activity/Vol]40 U/ECmvrbp18-60 U/[employer] Other bilirubin [Mass/Vol]0.7840088 mg/dLNormal0.3-1.2 mg/dL [employer] Other bilirubin.indirect [Mass/Vol]mg/dLNormal0.0-0.4Noqualifyor Other Protein [Mass/Vol]6.420570 g/dLNormal6.1-7.9 g/dLNoexcelsior springs medical center Ibetor Other Hepatic PanelTNPNoexcelsior springs medical center Ibetor Other Hepatic Panel3.0 g/dLNoexcelsior springs medical center Ibetor Other Lipaseon 41-22-3985Wuquxj [Catalytic activity/Vol] 34.59446 U/IAibmfi57-00 U/LNorth Ibetor Other Lipid Panelon 05-46-9329Idozvfdzjyg [Mass/Vol]239 mg/sZAuvm102-165 mg/dLMillstone Ibetor Other Cholesterol in HDL [Mass/Vol]54 mg/rEMidnwa17-55 mg/dL [facility] Other Cholesterol in LDL Elph Qn162 mg/dLHigh0-100 mg/dL [facility] Other Cholesterol.total/Cholesterol in HDL [Mass ratio]4.4 {ratio}<5.0Noexcelsior springs medical center Ibetor Other Lipid Uryye346 mg/hHQxihwj31-589 mg/dLNoexcelsior springs medical center Ibetor Other Lipid Panel23 mg/dLNoexcelsior springs medical center Ibetor Other PAP ACOG PANEL 2: 30 to 65on 07-18-2021..NormalThe [facility] ClinicComment on above:Result Comment: Performed at: WBPerformed By: #### [id number] #### [facility] [address] [address] [address] Jorge Luis Gil Gdln ACOG Tfjqjaf95-44XwvocjEurOhioHealth Marion General HospitalComment on above:Performed By: #### [id number] #### [facility] [address] [address] [address] Jorge Luis FerrisDIAGNOSIS:CommentOhioHealth Dublin Methodist HospitalComment on above: Result Comment: NEGATIVE FOR INTRAEPITHELIAL LESION OR MALIGNANCY. Performed at: WBPerformed By: #### [id number] #### [facility] [address] [place] [address] Dr. Jorge Luis FerrisHPV AptimaNegativeNormalNegativeThe [facility] on above:Result Comment: This nucleic acid amplification test detects fourteen high-risk HPV types (16,18,31,33,35,39,45,51,52,56,58,59,66,68) without differentiation. Performed at: =GPerformed By: #### [id number] #### [facility] [address] [place] [address] Dr. Jorge Luis FerrisMethodology:CommentLancaster Municipal Hospital on above: Result Comment: This liquid based ThinPrep(R) pap test was screened with the use of an image guided system. Performed at: WBPerformed By: #### [id number] #### [facility] [address] [place] [address] Dr. Jorge Luis FerrisNote:CommentNoAdena Pike Medical Center on above:Result Comment: The Pap smear is a screening test designed to aid in the detection of premalignant and malignant conditions of the uterine cervix. It is not a diagnostic procedure and should not be used as the sole means of detecting cervical cancer. Both false-positive and false-negative reports do occur. . Performed at: WBPerformed By: #### [id number] #### [facility] [address] [place] [address] Dr. Jorge Luis FerrisPerformed by:CommentNoAdena Pike Medical Center on above: Result Comment: Magnolia Franz, College Associate (ASCP) Performed at: WBPerformed By: #### [id number] #### [facility] [address] [place] [address] Dr. Jorge Luis FerrisSpecimeedilia adequacy:CommentLancaster Municipal Hospital on above:Result Comment: Satisfactory for evaluation. Endocervical and/or squamous metaplastic cells (endocervical component) are present. Areas of partially obscuring blood are present. Performed at: WBPerformed By: #### [id number] #### [facility] [address] [place] [address] Jorge Luis FerrisCovid-19 PCR ([facility])on 94-81-1550QBKL-CoV-2 (COVID-19) RNA VANNESA+probe Ql (Unsp spec)Not detectedNormalNOT DETECTEDThe [facility] Comment on above:Result Comment: This test is not yet approved or cleared by the [place] FDA. When there are no FDA-approved or cleared tests available, and other criteria are met, FDA can make tests available under an emergency access mechanism called an Emergency Use Authorization (EUA). The EUA for this test is supported by the Conductor Pullman of Health and Human Service's (HHS's) declaration that circumstances exist to justify the emergency use of in vitro diagnostics for the detection and/or diagnosis of the virus that causes COVID- 19. This EUA will remain in effect (meaning [...] of clinical signs and symptoms consistent with SARS-CoV-2.Performed By: #### CVDTB #### [facility] [address] [place] [address] [address] [address] Jorge Luis Ferris Vital Signs Date TimeVital SignValuePerforming WbopnkktzViwvknoz22-26-3219 15:19-0400Body tcyltz823.4 cmDana [facility] Work Phone: [facility]10-29-2025 15:19-0400 Body mass index (BMI) [Ratio]43.5 kg/m2Dana [facility] Work Phone: [facility]10-29-2025 15:19-0400 Body .15 kgDana [facility] Work Phone: [facility]10-29-2025 15:19-0400 Diastolic blood yfdlznjt51 mm[Hg]Juanito Easterwood DREDGING INSPECTOR Work Phone: 1(136)[address]10-29-2025 15:19-0400 Heart rate74 /minDana Easterwood DREDGING INSPECTOR Work Phone: 1(927)[address] [place], [place] 413[address]10-29-2025 15:19-0400 SaO2% (BldA) [Mass fraction]99 %Juanito Sloanerwood DREDGING INSPECTOR Work Phone: 1(533)[address] [place], [place] 4131410-29-2025 15:19-0400 Systolic blood mm[Hg]Juanito Easterwood DREDGING INSPECTOR Work Phone: 1(614)[address] [place], [place] 4131409-12-2025 09:56-0400 Body skinmi971.59 cmDana [facility] Centerersaint [facility]is DREDGING INSPECTOR Work Phone: 1(582)[address] [place], [place] 4131409-12-2025 09:56-0400 Body mass index (BMI) [Ratio]44.1 kg/m2Dana Sloanerwood DREDGING INSPECTOR Work Phone: 1(672)[address] [place], [place] 4131409-12-2025 09:56-0400 Body agitza565 kgDaSpecialty Hospital at [facility] DREDGING INSPECTOR Work Phone: 1(914)[address] [place], [place] 413[address]09-12-2025 09:56-0400 Diastolic blood kdprumac93 mm[Hg]Juanito Sloanerwood DREDGING INSPECTOR Work Phone: 1(476)[address] [place], [place] 4131409-12-2025 09:56-0400 Heart rate67 /minDana Easterwood DREDGING INSPECTOR Work Phone: 1(909)[address] [place], [place] 413[address]09-12-2025 09:56-0400 Respiratory rate18 /minDana [facility] Centererwood DREDGING INSPECTOR Work Phone: 1(230)[address] [place], [place] 413[address]09-12-2025 09:56-0400 SaO2% (BldA) [Mass fraction]99 %Juanito Sloanerwood DREDGING INSPECTOR Work Phone: 1(275)[address] [place], [place] 413[address]09-12-2025 09:56-0400 Systolic blood fvuwiype941 mm[Hg]Juanito Easterwood DREDGING INSPECTOR Work Phone: 1(875)[address] [place], [place] 24[address]107-31-2025 08:55-0400 Body .81 cmDana Easterwood DREDGING INSPECTOR Work Phone: 1(808)[address] [place], [place] 413[address]07-31-2025 08:55-0400 Body mass index (BMI) [Ratio]44.3 kg/m2Dana Easterwood DREDGING INSPECTOR Work Phone: 1(175)[address] [place], [place] 413[address]07-31-2025 08:55-0400 Body .55 kgDana Easterwood DREDGING INSPECTOR Work Phone: 1(161)[address] [place], [place] 413[address]07-31-2025 08:55-0400 Diastolic blood adkhbzhy50 mm[Hg]Juanito Easterwood DREDGING INSPECTOR Work Phone: 1(314)[address] [place], [place] 413[address]07-31-2025 08:55-0400 Heart rate75 /minDana Easterwood DREDGING INSPECTOR Work Phone: 1(372)[address] [place], [place] 413[address]07-31-2025 08:55-0400 Respiratory rate18 /minDana Easterwood DREDGING INSPECTOR Work Phone: 1(523)[address] [place], [place] 413[address]07-31-2025 08:55-0400 SaO2% (BldA) [Mass fraction]98 %Juanito Easterwood DREDGING INSPECTOR Work Phone: 1(992)[address] [place], [place] 413[address]07-31-2025 08:55-0400 Systolic blood xagcjlqg683 mm[Hg]Juanito Easterwood DREDGING INSPECTOR Work Phone: 1(514)[address] [place], [place] 413[address]06-16-2025 14:37-0400 Body jwakyt103.9 cmDana Easterwood DREDGING INSPECTOR Work Phone: 1(268)[address] [place], [place] 413[address]06-16-2025 14:37-0400 Body mass index (BMI) [Ratio]45 kg/m2Dana Easterwood DREDGING INSPECTOR Work Phone: 1(964)[address] [place], [place] 413[address]06-16-2025 14:37-0400 Body wufoqy866.7 kgDana Easterwood DREDGING INSPECTOR Work Phone: [facility]06-16-2025 14:37-0400 Diastolic blood xlkmvabb62 mm[Hg]Juanito Pagesaint louis DREDGING INSPECTOR Work Phone: [facility]06-16-2025 14:37-0400 Heart rate72 /[facility] DREDGING INSPECTOR Work Phone: [facility]06-16-2025 14:37-0400 Respiratory rate18 /Kyra [facility] DREDGING INSPECTOR Work Phone: 1(476)013-[address] [place], [place] 24[address]106-16-2025 14:37-0400 SaO2% (BldA) [Mass fraction]99 %Juanito [facility] DREDGING INSPECTOR Work Phone: 1(070)495-[facility]06-16-2025 14:37-0400 Systolic blood wluahedw912 mm[Hg]Juanito [facility] DREDGING INSPECTOR Work Phone: 1(756)012-[address] [place], [place] 24[address]105-14-2025 13:07-0400 Body .4 cmFeroseia Whitneynagel GLOBAL CMO Work Phone: [phone] CenterRpdckipuhc40-36-4147 13:07-0400Body mass index (BMI) [Ratio]46.36 kg/r1Syszdds Whitneynagel GLOBAL CMO Work Phone: [facility] CenterIwptgxbwns27-21-4238 13:07-0400Body axvoyy363.68 kgFelicia Whitneynagel GLOBAL CMO Work Phone: 1(765)520-[address] [place], [place] [address]Tokeikwyeg07-14-1649 13:07-0400Diastolic blood wzfwezxc55 mm[Hg]Odette Whitneynagel GLOBAL CMO Work Phone: [facility] CenterFlotztyxha57-44-0507 13:07-0400Systolic blood xflwofnw864 mm[Hg]Odette Whitneynagel GLOBAL CMO Work Phone: [facility] CenterDhxwqdwxwi79-93-0447 14:52-0400Body eyldto631.39 cmJuanito Lisast. [facility]ary[facility] DREDGING INSPECTOR Work Phone: 1(713)717-[address] [place], [place] 24[address]104-28-2025 14:52-0400 Body mass index (BMI) [Ratio]45.1 kg/m2Dana Easterwood DREDGING INSPECTOR Work Phone: 1(570)[address]04-28-2025 14:52-0400 Body ipgnbl447.25 kgDana Easterwood DREDGING INSPECTOR Work Phone: 1(677)[address]04-28-2025 14:52-0400 Diastolic blood bukjraie99 mm[Hg]Juanito Easterwood DREDGING INSPECTOR Work Phone: 1(903)[address]04-28-2025 14:52-0400 Heart rate67 /Kyra [facility] DREDGING INSPECTOR Work Phone: 1(234)[address] [place], [place] 4131404-28-2025 14:52-0400 Respiratory rate18 /Kyra [facility] DREDGING INSPECTOR Work Phone: 1(092)[address]04-28-2025 14:52-0400 SaO2% (BldA) [Mass fraction]97 %Juanito Sloanerwood DREDGING INSPECTOR Work Phone: 1(598)[address]04-28-2025 14:52-0400 Systolic blood afcshjka325 mm[Hg]Juanito Easterwood DREDGING INSPECTOR Work Phone: 1(546)[address]03-17-2025 10:32-0400 Body fzyxfs804.4 cmDana Easterwood DREDGING INSPECTOR Work Phone: 1(772)7-[address] [place], [place] 24[address]103-17-2025 10:32-0400 Body mass index (BMI) [Ratio]47 kg/m2Dana Sloanerwood DREDGING INSPECTOR Work Phone: 1(821)0-[address] [place], [place] 24[address]103-17-2025 10:32-0400 Body rugfizisell46.8 [degF]Juanito Easterwood DREDGING INSPECTOR Work Phone: 1(997)[address]03-17-2025 10:32-0400 Body qiizgt951.31 kgDana Easterwood DREDGING INSPECTOR Work Phone: 1(683)[address] [place], [place] 4131403-17-2025 10:32-0400 Diastolic blood dpixqxxd92 mm[Hg]Juanito Easterwood DREDGING INSPECTOR Work Phone: 1(598)[address] [place], [place] 4131403-17-2025 10:32-0400 Heart rate97 /minDana Easterwood DREDGING INSPECTOR Work Phone: 1(325)[address] [place], [place] 4131403-17-2025 10:32-0400 Respiratory rate20 /minDana [facility] DREDGING INSPECTOR Work Phone: 1(339)[address] [place], [place] 4131403-17-2025 10:32-0400 SaO2% (BldA) [Mass fraction]99 %Juanito Eastersaint louis DREDGING INSPECTOR Work Phone: 1(880)[address] [place], [place] 4131403-17-2025 10:32-0400 Systolic blood pijxwmxe956 mm[Hg]Juanito Easterwood DREDGING INSPECTOR Work Phone: 1(115)[address] [place], [place] 4131401-07-2025 13:48-0500 Body jsohfn876.4 cmDana Easterwood DREDGING INSPECTOR Work Phone: 1(341)[address] [place], [place] 4131401-07-2025 13:48-0500 Body mass index (BMI) [Ratio]47.6 kg/m2Dana Easterwood DREDGING INSPECTOR Work Phone: 1(328)[address] [place], [place] 4131401-07-2025 13:48-0500 Body klsidivalkx37 [degF]Juanito [facility] Centererwood DREDGING INSPECTOR Work Phone: 1(221)[address] [place], [place] 4131401-07-2025 13:48-0500 Body ocejau273.67 kgDana Easterwood DREDGING INSPECTOR Work Phone: 1(266)[address] [place], [place] 4131401-07-2025 13:48-0500 Diastolic blood zdcutudc75 mm[Hg]Juanito Easterwood DREDGING INSPECTOR Work Phone: 1(725)[address] [place], [place] 4131401-07-2025 13:48-0500 Heart rate87 /minDana Easterwood DREDGING INSPECTOR Work Phone: 1(909)[address] [place], [place] 4131401-07-2025 13:48-0500 Respiratory rate20 /minDana [facility] RUTH ANN Work Phone: [facility]01-07-2025 13:48-0500 SaO2% (BldA) [Mass fraction]99 %Juanito [facility] Centerritikasaint louis RUTH ANN Work Phone: [facility]01-07-2025 13:48-0500 Systolic blood pcawzuxf318 mm[Hg]Juanito [facility] RUTH ANN Work Phone: [facility]01-03-2025 18:09-0500 Body mass index (BMI) [Ratio]45.32 kg/m2Paelaine Eagle DO Work Phone: noSSM Health CareBsejoetynu03-01-6975 18:09-0500Body temperature 98.1 [degF]Kevin Eagle DO Work Phone: noSSM Health CareFcgdpjwmoc12-58-4376 18:09-0500Body ojwxpf359.14 kgPaul Shagufta MENDOSA Work Phone: noSSM Health CareHkecwcyiqd70-81-1227 18:09-0500Heart rate78 /min Kevin Eagle DO Work Phone: noSSM Health CareAkwoaipyhv27-37-7646 18:09-1329ZgQ6% (BldA) [Mass fraction]98 %Kevin Eagle DO Work Phone: noSSM Health CarePkrccztvnp07-65-3246 14:28-0500Body temperature 97.16 [degF]Joe Cheung [facility]01-02-2025 14:28-0500 Diastolic blood qfflonib43 mm[Hg]Joe Cheung [facility]01-02-2025 14:28-0500Heart rate63 /minJoe Cheung [facility]01-02-2025 14:28-0500 Respiratory rate18 /minTim Jonatan [facility]01-02-2025 14:28-8632CyU2% (BldA) [Mass fraction]99 %Joe Cheung [facility]01-02-2025 14:28-0500 Systolic blood kpednbhx096 mm[Hg]Joe Cheung [facility]12-17-2024 10:30-0500Body yjfcqj995.4 cmDana Eastersaint louis DREDGING INSPECTOR Work Phone: [facility]12-17-2024 10:30-0500 Body mass index (BMI) [Ratio]46.5 kg/m2Dana Eastersaint louis DREDGING INSPECTOR Work Phone: 1(160)5-[address] [place], [place] 2494112-17-2024 10:30-0500 Body jkfdocbqsqr05.6 [degF]Juanito Rob[facility] Centererwood DREDGING INSPECTOR Work Phone: 1(921)[address]12-17-2024 10:30-0500 Body antvdl568.95 kgDana Eastersaint louis DREDGING INSPECTOR Work Phone: 1(828)[address]12-17-2024 10:30-0500 Diastolic blood mm[Hg]Juanito Easterwood DREDGING INSPECTOR Work Phone: 1(489)[address] [place], [place] 2494112-17-2024 10:30-0500 Heart rate80 /minDana Easterwood DREDGING INSPECTOR Work Phone: 1(125)3-[address] [place], [place] 2494112-17-2024 10:30-0500 Respiratory rate20 /minDana Easterwood DREDGING INSPECTOR Work Phone: 1(737)9-[address] [place], [place] 2494112-17-2024 10:30-0500 SaO2% (BldA) [Mass fraction]97 %Juanito Easterwood DREDGING INSPECTOR Work Phone: 1(403)2-[address] [place], [place] 2494112-17-2024 10:30-0500 Systolic blood atnydynh010 mm[Hg]Juanito Easterwood DREDGING INSPECTOR Work Phone: 1(397)[address] [place], [place] 2494112-14-2024 21:25-0500 Body poklxuujxkp81.6 [degF]Jorden Jose [facility]12-14-2024 21:25-0500 Diastolic blood aswjjuea20 mm[Hg]Jorden Jose [address] [place], [place] 3357812-14-2024 21:25-0500Heart rate79 /minNoah Jose [address] [place], [place] 3357812-14-2024 21:25-0500 Respiratory rate20 /minNoah Jose [address] [place], [place] 3357812-14-2024 21:25-2713YcY8% (BldA) [Mass fraction]98 %Jorden Jose [address] [place], [place] 3357812-14-2024 21:25-0500 Systolic blood sigpnkol903 mm[Hg]Jorden Jose [address] [place], [place] 2961311-23-2024 01:30-0500 Diastolic blood qnmbimkx19 mm[Hg]Juanito Easterwood DREDGING INSPECTOR Work Phone: 1(943)3-[address] [place], [place] 2494111-23-2024 01:30-0500 Heart rate72 /minDana Easterwood DREDGING INSPECTOR Work Phone: 3(355)[address]11-23-2024 01:30-0500 Respiratory rate18 /minDana Easterwood DREDGING INSPECTOR Work Phone: 9(646)[address] [place], [place] 2494111-23-2024 01:30-0500 SaO2% (BldA) [Mass fraction]97 %Juanito Easterwood DREDGING INSPECTOR Work Phone: 1(057)7-[address] [place], [place] 2494111-23-2024 01:30-0500 Systolic blood mm[Hg]Juanito Easterwood DREDGING INSPECTOR Work Phone: 1(011)2-[address] [place], [place] 2494111-22-2024 23:07-0500 Body owlgwjbezhn59.1 [degF]Juanito Easterwood DREDGING INSPECTOR Work Phone: 1(145)7-[address] [place], [place] 2494111-22-2024 21:11-0500 Body udnvhm960.4 cmDana Sloanerwood DREDGING INSPECTOR Work Phone: 1(790)[address] [place], [place] 4131411-22-2024 21:11-0500 Body ohklxk177.7 kgDana Sloanerwood DREDGING INSPECTOR Work Phone: 1(662)[address] [place], [place] 4131409-04-2024 09:29-0400 Body .4 cmAPRN Juanito Sloanerwood Work Phone: 1(863)[address] [place], [place] 4131409-04-2024 09:29-0400 Body mass index (BMI) [Ratio]47.6 kg/m2APRN Juanito Sloanerwood Work Phone: 1(723)[address] [place], [place] 4131409-04-2024 09:29-0400 Body bvtetxbsrxs99.2 [degF]DREDGING INSPECTOREdilia Herreraa Sloanerwood Work Phone: 1(079)[address] [place], [place] 4131409-04-2024 09:29-0400 Body pegreg428.67 kgAPRN Juanito Sloanerwood Work Phone: 1(989)[address] [place], [place] 4131409-04-2024 09:29-0400 Diastolic blood msbpibok54 mm[Hg]DREDGING INSPECTOR Juanito Sloanerwood Work Phone: 1(009)[address] [place], [place] 4131409-04-2024 09:29-0400 Heart rate50 /minAPRN Juanito Sloanerwood Work Phone: 1(040)[address] [place], [place] 4131409-04-2024 09:29-0400 Respiratory rate20 /minAPRN Juanito Easterwood Work Phone: 1(120)[address] [place], [place] 4131409-04-2024 09:29-0400 SaO2% (BldA) [Mass fraction]99 %DREDGING INSPECTOR Juanito Easterwood Work Phone: 1(410)[address] [place], [place] 4131409-04-2024 09:29-0400 Systolic blood sutiktct529 mm[Hg]DREDGING INSPECTOR Juanito Easterwood Work Phone: 1(765)[address] [place], [place] 4131408-05-2024 13:39-0400 Body yeczdp126.4 cmAPRN Juanito Easterwood Work Phone: 1(550)[address]08-05-2024 13:39-0400 Body mass index (BMI) [Ratio]47.5 kg/m2RUTH ANN Deleon Work Phone: 1(605)[address] [place], [place] 4131408-05-2024 13:39-0400 Body batflkdagyv42.1 [degF]RUTH ANN Deleon Work Phone: 1(229)[address] [place], [place] 4131408-05-2024 13:39-0400 Body agkyqk777.39 kgRUTH ANN Deleon Work Phone: 1(650)[address] [place], [place] 4131408-05-2024 13:39-0400 Diastolic blood ixnyjgqt208 mm[Hg]RUTH ANN Deleon Work Phone: 1(544)[address] [place], [place] 4131408-05-2024 13:39-0400 Heart rate81 /minRUTH ANN Deleon Work Phone: 1(972)[address] [place], [place] 4131408-05-2024 13:39-0400 Respiratory rate18 /minRUTH ANN Deleon Work Phone: 1(000)[address]08-05-2024 13:39-0400 SaO2% (BldA) [Mass fraction]99 %RUTH ANN Deleon Work Phone: 1(713)[address]08-05-2024 13:39-0400 Systolic blood sencujvq511 mm[Hg]RUTH ANN Deleon Work Phone: 1(661)[address] [place], [place] 4131407-26-2024 22:35-0400 Body wntojhmuysk89.24 [degF]Wesly Lopez [facility]07-26-2024 22:35-0400 Diastolic blood mm[Hg]Wesly Bullocken [facility]07-26-2024 22:35-0400Heart rate85 /minJairylmeshan Dokken [facility]07-26-2024 22:35-0400 Respiratory rate16 /Audra Lopez [facility]07-26-2024 22:35-3724WqE9% (BldA) [Mass fraction]100 %Wesly Lopez [facility]07-26-2024 22:35-0400 Systolic blood oyofaopq289 mm[Hg]Markelcoedilia Lopez [facility]07-10-2024 09:26-0400Body oqxqjd575.4 cmAJACKIE Deleon Work Phone: 1(908)[address]07-10-2024 09:26-0400 Body mass index (BMI) [Ratio]46.5 kg/m2RUTH ANN Deleon Work Phone: 1(623)[address]07-10-2024 09:26-0400 Body pxpqsgsubmf34.2 [degF]RUTH ANN Deleon Work Phone: 1(353)[address]07-10-2024 09:26-0400 Body obzdyy306.95 kgRUTH ANN Deleon Work Phone: 1(366)727-[address] [place], [place] 2494107-10-2024 09:26-0400 Diastolic blood wbmqyewf00 mm[Hg]RUTH ANN Lisaersandee Work Phone: 1(637)646-[address] [place], [place] 2494107-10-2024 09:26-0400 Heart rate75 /minRUTH ANN Lisaersandee Work Phone: 1(978)[address] [place], [place] 2494107-10-2024 09:26-0400 Respiratory rate20 /minRUTH ANN Lisaersandee Work Phone: 1(891)[address]07-10-2024 09:26-0400 SaO2% (BldA) [Mass fraction]99 %RUTH ANN Herreraa Easterwood Work Phone: 1(360)[address] [place], [place] 4131407-10-2024 09:26-0400 Systolic blood vkkdfgne555 mm[Hg]DREDGING INSPECTOR Juanito Lisaersandee Work Phone: 1(353)[address] [place], [place] 4131407-06-2024 22:30-0400 Body ehejkeqhnzt16.6 [degF]RUTH ANN Lisaersandee Work Phone: 1(202)[address] [place], [place] 4131407-06-2024 22:30-0400 Diastolic blood rsyudcfj84 mm[Hg]DREDGING INSPECTOR Juanito Lisaersandee Work Phone: 1(627)[address] [place], [place] 4131407-06-2024 22:30-0400 Heart rate78 /minAPREdilia Lisaersandee Work Phone: 1(252)[address] [place], [place] 4131407-06-2024 22:30-0400 Respiratory rate20 /minAPREdilia Lisaersandee Work Phone: 1(181)[address] [place], [place] 4131407-06-2024 22:30-0400 SaO2% (BldA) [Mass fraction]99 %DREDGING INSPECTOREdilia Lisaersandee Work Phone: 1(183)[address] [place], [place] 4131407-06-2024 22:30-0400 Systolic blood qskewnts767 mm[Hg]RUTH ANN Lisaersandee Work Phone: 1(345)[address] [place], [place] 4131407-06-2024 21:05-0400 Body kvrojf316.4 cmAPREdilia Lisaersandee Work Phone: 1(332)[address] [place], [place] 4131407-06-2024 21:05-0400 Body arpbil104.7 kgAPREdilia Lisaersandee Work Phone: 1(245)[address] [place], [place] 4131405-29-2024 09:42-0400 Body zulfxx742.4 cmAJACKIE Herreraa Sloanersandee Work Phone: 1(964)[address] [place], [place] 4131405-29-2024 09:42-0400 Body mass index (BMI) [Ratio]46.6 kg/m2APRN Juanito Easterwood Work Phone: 1(592)[address]05-29-2024 09:42-0400 Body odeckduvqig32.9 [degF]RUTH ANN Lisaersandee Work Phone: 1(825)[address] [place], [place] 4131405-29-2024 09:42-0400 Body qnfmis856.4 kgAPREdilia Lisaersandee Work Phone: 1(740)[address] [place], [place] 4131405-29-2024 09:42-0400 Diastolic blood dfhjhezz05 mm[Hg]RUTH ANN Herreraa Sloanerwood Work Phone: 1(444)[address] [place], [place] 4131405-29-2024 09:42-0400 Heart rate75 /minAPREdilia Lisaersandee Work Phone: 1(516)[address] [place], [place] 4131405-29-2024 09:42-0400 Respiratory rate20 /minAPREdilia Lisaersandee Work Phone: 1(746)[address] [place], [place] 4131405-29-2024 09:42-0400 SaO2% (BldA) [Mass fraction]99 %RUTH ANN Lisaersandee Work Phone: 1(500)[address] [place], [place] 4131405-29-2024 09:42-0400 Systolic blood mm[Hg]RUTH ANN Lisaersandee Work Phone: 1(014)[address] [place], [place] 4131404-16-2024 08:17-0400 Body glxfuo624.4 cmAPRN Juanito Lisaersandee Work Phone: 1(059)[address] [place], [place] 4131404-16-2024 08:17-0400 Body mass index (BMI) [Ratio]44.6 kg/m2RUTH ANN Herreraa Easterwood Work Phone: 1(480)[address] [place], [place] 4131404-16-2024 08:17-0400 Body xneulhtwwst13 [degF]RUTH ANN Herreraa Easterwood Work Phone: 1(925)[address] [place], [place] 4131404-16-2024 08:17-0400 Body cvtynu981.64 kgAPREdilia Herreraa Easterwood Work Phone: 1(635)[address]04-16-2024 08:17-0400 Diastolic blood mm[Hg]RUTH ANN Lisaerwood Work Phone: 1(643)[address]04-16-2024 08:17-0400 Heart rate88 /minRUTH ANN Metcalf Easterwood Work Phone: 1(744)[address] [place], [place] 4131404-16-2024 08:17-0400 Respiratory rate20 /minAPREdilia Lisaersandee Work Phone: 1(082)[address] [place], [place] 4131404-16-2024 08:17-0400 SaO2% (BldA) [Mass fraction]98 %RUTH ANN Lisaersandee Work Phone: 1(956)[address] [place], [place] 4131404-16-2024 08:17-0400 Systolic blood mm[Hg]DREDGING INSPECTOR Juanito Lisaersandee Work Phone: 1(399)[address] [place], [place] 4131403-07-2024 11:48-0500 Body oanbsl457.4 cmAPREdilia Lisaerwood Work Phone: 1(134)[address] [place], [place] 4131403-07-2024 11:48-0500 Body mass index (BMI) [Ratio]44.9 kg/m2APREdilia Lisaerwood Work Phone: 1(008)[address] [place], [place] 4131403-07-2024 11:48-0500 Body dnutnwggoqa27.3 [degF]DREDGING INSPECTOR Juanito Lisaersandee Work Phone: 1(026)[address] [place], [place] 4131403-07-2024 11:48-0500 Body evafml399.32 kgAPREdilia Herreraa Easterwood Work Phone: 1(081)[address]03-07-2024 11:48-0500 Diastolic blood yeyvzexo96 mm[Hg]RUTH ANN Herreraa Easterwood Work Phone: 1(866)[address] [place], [place] 4131403-07-2024 11:48-0500 Heart rate83 /minAPREdilia Juanito Easterwood Work Phone: 1(419)[address] [place], [place] 4131403-07-2024 11:48-0500 Respiratory rate18 /minAPRN Juanito Easterwood Work Phone: 1(087)[address] [place], [place] 4131403-07-2024 11:48-0500 SaO2% (BldA) [Mass fraction]98 %DREDGING INSPECTOR Juanito Easterwood Work Phone: 1(739)[address] [place], [place] 4131403-07-2024 11:48-0500 Systolic blood gfaopkjk299 mm[Hg]DREDGING INSPECTOR Juanito Easterwood Work Phone: 1(064)[address] [place], [place] 4131402-14-2024 22:30-0500 Diastolic blood mirdlgpv02 mm[Hg]DREDGING INSPECTOR Juanito Easterwood Work Phone: 1(703)[address] [place], [place] 4131402-14-2024 22:30-0500 Heart rate78 /minAPRN Juanito Easterwood Work Phone: 1(906)[address] [place], [place] 4131402-14-2024 22:30-0500 Respiratory rate16 /minAPRN Juanito Easterwood Work Phone: 1(771)[address] [place], [place] 4131402-14-2024 22:30-0500 SaO2% (BldA) [Mass fraction]97 %DREDGING INSPECTOR Juanito Easterwood Work Phone: 1(609)[address] [place], [place] 4131402-14-2024 22:30-0500 Systolic blood mjngujiv574 mm[Hg]DREDGING INSPECTOR Juanito Easterwood Work Phone: 1(007)[address] [place], [place] 4131402-14-2024 18:46-0500 Body qochqk194.4 cmAPRN Juanito Easterwood Work Phone: 1(403)[address] [place], [place] 4131402-14-2024 18:46-0500 Body vngyoksqvrt51.7 [degF]DREDGING INSPECTOR Juanito Easterwood Work Phone: 1(674)[address] [place], [place] 4131402-14-2024 18:46-0500 Body kgAPRN Juanito Easterwood Work Phone: 1(509)[address] [place], [place] 4131402-13-2024 11:08-0500 Body zkcqum721.4 cmAPREdilia Herreraa Easterwood Work Phone: 1(766)[address] [place], [place] 4131402-13-2024 11:08-0500 Body mass index (BMI) [Ratio]44.5 kg/m2APREdilia Herreraa Easterwood Work Phone: 1(016)[address] [place], [place] 4131402-13-2024 11:08-0500 Body kkuuggfplbo40.4 [degF]DREDGING INSPECTOR Juanito Easterwood Work Phone: 1(047)[address] [place], [place] 4131402-13-2024 11:08-0500 Body xvndyt072.41 kgAPREdilia Herreraa Easterwood Work Phone: 1(314)[address] [place], [place] 4131402-13-2024 11:08-0500 Diastolic blood qutkuftl67 mm[Hg]DREDGING INSPECTOR Juanito Easterwood Work Phone: 1(736)[address] [place], [place] 4131402-13-2024 11:08-0500 Heart rate74 /minAPREdilia Herreraa Easterwood Work Phone: 1(018)[address] [place], [place] 4131402-13-2024 11:08-0500 Respiratory rate20 /minAPREdilia Herreraa Easterwood Work Phone: 1(876)[address] [place], [place] 4131402-13-2024 11:08-0500 SaO2% (BldA) [Mass fraction]99 %RUTH ANN Herreraa Easterwood Work Phone: 1(705)[address] [place], [place] 4131402-13-2024 11:08-0500 Systolic blood bivxajox357 mm[Hg]DREDGING INSPECTOR Juanito Easterwood Work Phone: 1(814)[address] [place], [place] 4131402-08-2024 21:44-0500 Body dcdovsgpqfm13.2 [degF]DREDGING INSPECTOR Juanito Easterwood Work Phone: 1(462)[address] [place], [place] 4131402-08-2024 21:44-0500 Diastolic blood dnvseszv64 mm[Hg]DREDGING INSPECTOR Juanito Easterwood Work Phone: 1(229)[address] [place], [place] 4131402-08-2024 21:44-0500 Heart rate71 /minAPREdilia Deleon Work Phone: 1(105)818-[address] [place], [place] 2494102-08-2024 21:44-0500 Respiratory rate18 /minAPREdilia Deleon Work Phone: 1(404)093-[address] [place], [place] 2494102-08-2024 21:44-0500 SaO2% (BldA) [Mass fraction]98 %DREDGING INSPECTOREdilai Deleon Work Phone: 1(233)109-[address] [place], [place] 2494102-08-2024 21:44-0500 Systolic blood ktcozdye166 mm[Hg]DREDGING INSPECTOR Juanito Lisasandee Work Phone: 1(041)[address]02-08-2024 19:32-0500 Body kianxe164.4 cmAPREdilia [facility] Work Phone: 1(518)3-[address] [place], [place] 2494102-08-2024 19:32-0500 Body rikvxy628.7 kgAPREdilia Deleon Work Phone: 1(967)891-[address] [place], [place] 2494102-06-2024 10:20-0500 Body mass index (BMI) [Ratio]44.55 kg/m4JerrjhfMelissa Dorsey [employer] C[employer] Work Phone: [facility] CenterTorh[facility]som10[facility]-2184 10:20-0500Body temperature 97.7 [degF]Melissa Dorsey [employer] CMO Work Phone: [facility] CenterKsiowjsnbv87-96-5989 10:20-0500Body .33 kgMelissa Dorsey [employer] C[employer] Work Phone: [facility] CenterIaoeecwbhq61-23-7234 10:20-0500Diastolic blood uybyogsz32 mm[Hg]Melissa Dorsey [employer] C[employer] Work Phone: [facility] CenterDxhgauyxxt21-18-0225 10:20-0500Heart rate81 /min Melissa Dorsey [employer] C[employer] Work Phone: [facility] CenterSmxbzjkbqv21-57-6645 10:20-4364YsJ6% (BldA) [Mass fraction]97 %Melissa Dorsey [employer] CMO Work Phone: [facility] CenterJqygpxvxmi43-72-0454 10:20-0500Systolic blood hyxpbfmr182 mm[Hg]Melissa Dorsey [employer] CMO Work Phone: [facility] CenterEfvxnfxqdq05-52-6314 00:51-0500Diastolic blood dihpjwfl95 mm[Hg]DREDGING INSPECTOR Juanito Easterwood Work Phone: 1(465)[address] [place], [place] 4131412-30-2023 00:51-0500 Heart rate76 /minAPRN Juanito Easterwood Work Phone: 1(257)[address] [place], [place] 4131412-30-2023 00:51-0500 Respiratory rate20 /minAPRN Juanito Easterwood Work Phone: 1(904)[address] [place], [place] 4131412-30-2023 00:51-0500 SaO2% (BldA) [Mass fraction]98 %DREDGING INSPECTOR Juanito Easterwood Work Phone: 1(072)[address] [place], [place] 4131412-30-2023 00:51-0500 Systolic blood vnefqzqc348 mm[Hg]DREDGING INSPECTOR Juanito Easterwood Work Phone: 1(584)[address] [place], [place] 4131412-29-2023 21:15-0500 Body .4 cmAPRN Juanito Easterwood Work Phone: 1(339)[address] [place], [place] 4131412-29-2023 21:15-0500 Body ifliqzsakmu15 [degF]DREDGING INSPECTOR Juanito Easterwood Work Phone: 1(235)[address] [place], [place] 4131412-29-2023 21:15-0500 Body lrcihj56.79 kgAPRN Juanito Easterwood Work Phone: 1(842)[address] [place], [place] 4131411-21-2023 09:30-0500 Body hvyzwu066.4 cmUriah Skinner Other [facility]11-21-2023 09:30-0500 Body mass index (BMI) [Ratio]43.49 kg/n6OswiwvUriah Skinner Other [phone] Other 11-21-2023 09:30-0500Body fiozjq988.02 kgUriah Skinner Other [employer] Other 11-21-2023 09:30-0500Body gqrich720.01 kgAPRN Juanito Deleon Work Phone: [facility]11-21-2023 09:30-0500 Diastolic blood julqyqqm11 mm[Hg]Uriah Skinner Other [facility]11-21-2023 09:30-0500 Respiratory rate18 /Ashly Skinner Other [employer] Other 11-21-2023 09:30-7261PyV6% (BldA) [Mass fraction]98 % Uriah Skinner Other [facility] Other 11-21-2023 09:30-0500Systolic blood zuhvgypa275 mm[Hg] Uriah Skinner Other [facility]09-07-2023 14:00-0400 Body .4 cmDawn Fitt Other [employer] [employer] Other 08-28-2023 11:00-0400Body iczdcs996.4 cmUriah Skinner Other [employer] Other 08-28-2023 11:00-0400Body mass index (BMI) [Ratio] 45.64 kg/p9ZnjarnUriah Skinner Other [facility] Other 08-28-2023 11:00-0400Body bnuaeo341.01 kgUriah Skinner Other [facility] Other 08-28-2023 11:00-0400Diastolic blood hdnawpsa48 mm[Hg] Uriah Skinner Other [facility] Other 08-28-2023 11:00-0400Respiratory rate18 /minDchon Susanne Other [facility] Other 08-28-2023 11:00-0518PkQ6% (BldA) [Mass fraction]97 % Uriah Skinner Other [facility] [employer] Other 08-28-2023 11:00-0400Systolic blood ozyyfeou170 mm[Hg] Uriah Skinner Other [employer] Other 05-15-2023 14:00-0400Body nbtvyb740.4 cmDana Avaz Other [facility] Other 05-15-2023 14:00-0400Body mass index (BMI) [Ratio] 46.28 kg/m2Dana EastGoNetYourself Other [facility] Other 05-15-2023 14:00-0400Body hrmzobijjim96.6 [degF]Juanito Easterwood Other [facility] Other 05-15-2023 14:00-0400Body .5 kgDana EasterJumpSeller Other [facility] Other 05-15-2023 14:00-0400Diastolic blood xbaulkuo43 mm[Hg] Juanito Easterwood Other [facility] [employer] Other 05-15-2023 14:00-0400Respiratory rate20 /minDana Easterwood Other [facility] Other 05-15-2023 14:00-0284GiG8% (BldA) [Mass fraction]98 % Juanito Easterwood Other [facility] Other 05-15-2023 14:00-0400Systolic blood bhrpuxdl761 mm[Hg] Juanito Easterwood Other [facility] Other 05-01-2023 15:05-0400Diastolic blood vrwyauwy74 mm[Hg] DREDGING INSPECTOR Juantio Easterwood Work Phone: 1(151)079-[facility]05-01-2023 15:05-0400 Heart rate90 /minAPRN Juanito Easterwood Work Phone: 1(011)145-[facility]05-01-2023 15:05-0400 Respiratory rate16 /minAPRN Juanito Easterwood Work Phone: 1(544)466-[address] [place], [place] 2494105-01-2023 15:05-0400 SaO2% (BldA) [Mass fraction]95 %DREDGING INSPECTOR Juanito Easterwood Work Phone: 1(324)843-[facility]05-01-2023 15:05-0400 Systolic blood xgwbxoza789 mm[Hg]DREDGING INSPECTOR Juanito Easterwood Work Phone: 1(916)334-[address] [place], [place] 2494105-01-2023 13:36-0400 Body eotqid584.4 cmAPRN Juanito Easterwood Work Phone: 1(292)041-[address] [place], [place] 2494105-01-2023 13:36-0400 Body mairle567.5 kgAPRN Juanito Easterwood Work Phone: 1(676)184-[address] [place], [place] 2494104-17-2023 10:45-0400 Body rsaawm853.4 cmDana Easterwood Other [facility] Other 04-17-2023 10:45-0400Body mass index (BMI) [Ratio] 46.28 kg/m2Dana Easterwood Other [facility] Other 04-17-2023 10:45-0400Body tkgaerpmxoh79.2 [degF]Juanito Easterwood Other [facility] [employer] Other 04-17-2023 10:45-0400Body tqcini718.5 kgDana SloanerJumpSeller Other [facility] Other 04-17-2023 10:45-0400Diastolic blood syjuccoi61 mm[Hg] Juanito Easterwood Other [facility] [employer] Other 04-17-2023 10:45-0400Respiratory rate20 /minDana [facility]st[facility] Other [facility] Other 04-17-2023 10:45-6681KiB2% (BldA) [Mass fraction]98 % Juanito Easterwood Other [facility] Other 04-17-2023 10:45-0400Systolic blood worgtwrk890 mm[Hg] Juanito SloanerJumpSeller Other [facility] Other 03-27-2023 11:00-0400Body qvdbqe977.4 cmDana Sloanerwood Other [facility] Other 03-27-2023 11:00-0400Body mass index (BMI) [Ratio] 46.09 kg/m2Dana EasterJumpSeller Other [employer] Other 03-27-2023 11:00-0400Body izawhfqnnha45.3 [degF]Juanito Deleon Other [facility] Other 03-27-2023 11:00-0400Body zkzxow705.05 kgDana Adrienne Other [facility] Other 03-27-2023 11:00-0400Diastolic blood hyuwbuiu27 mm[Hg] Juanito Deleon Other [facility] Other 03-27-2023 11:00-0400Respiratory rate20 /minDana Adrienne Other [facility] Other 03-27-2023 11:00-4215XpX1% (BldA) [Mass fraction]98 % Juanito Deleon Other [facility] Other 03-27-2023 11:00-0400Systolic blood ajyabohd145 mm[Hg] Juanito Deleon Other [facility] Other 03-23-2023 15:15-0400Body peggjk994.4 cmCameron Ditty Other [facility] Other 03-23-2023 15:15-0400Body mass index (BMI) [Ratio] 46.48 kg/r8Pcabenn Ditty Other [facility] Other 03-23-2023 15:15-0400Body hnpkyz728.96 kgCameron Ditty Other [facility] Other 03-23-2023 15:15-0400Diastolic blood mm[Hg] Johann Moe Other [facility] Other 03-23-2023 15:15-0400Respiratory rate20 /minCameroedilia Moe Other [facility] Other 03-23-2023 15:15-0400Systolic blood dsvedtpe484 mm[Hg] Johann Moe Other [facility] Other 02-02-2023 11:00-0500Body odrynx205.4 cmDana [employer] [facility] Other [facility] Other 02-02-2023 11:00-0500Body mass index (BMI) [Ratio]45.7 kg/m2Dana [facility] Health[facility] Other [facility] Other 02-02-2023 11:00-0500Body ntkfjphryiy77.5 [degF]Juanito [facility] Other [facility] [employer] Other 02-02-2023 11:00-0500Body .14 kgDana [facility] HealthJump[facility] Other [facility] Other 02-02-2023 11:00-0500Diastolic blood uqcsbhce66 mm[Hg] [facility] Other [facility] Other 02-02-2023 11:00-0500Respiratory rate20 /minDana [facility] Other [facility] [employer] Other 02-02-2023 11:00-0103InC1% (BldA) [Mass fraction]99 % Juanito Sloanerwood Other [facility] [employer] Other 02-02-2023 11:00-0500Systolic blood mm[Hg] Juanito Sloanerwood Other [facility] Other 01-05-2023 11:00-0500Body ibegdf124.4 cmDana SloanJumpSeller Other [facility] Other 01-05-2023 11:00-0500Body mass index (BMI) [Ratio] 46.67 kg/m2Dana KayleeJumpSeller Other [facility] Other 01-05-2023 11:00-0500Body kgcoskuxmql65.2 [degF]Juanito Sloanerwood Other [facility] Other 01-05-2023 11:00-0500Body movoaw798.41 kgDana SloanGoNetYourself Other [facility] Other 01-05-2023 11:00-0500Diastolic blood vwzumpva36 mm[Hg] Juanito Sloanerwood Other [facility] Other 01-05-2023 11:00-0500Respiratory rate20 /minDana Sloanersandee Other [facility] Other 01-05-2023 11:00-0890PoX5% (BldA) [Mass fraction]99 % Juanito Sloanerwood Other [facility] Other 01-05-2023 11:00-0500Systolic blood mm[Hg] Juanito Easterwood Other [employer] Other 11-01-2022 14:30-0400Body jroetm057.4 cmDana Easterwood Other [facility] Other 11-01-2022 14:30-0400Body mass index (BMI) [Ratio] 48.43 kg/m2Dana Easterwood Other [facility] Other 11-01-2022 14:30-0400Body opqxexsoqtg23.1 [degF]Juanito Easterwood Other [facility] Other 11-01-2022 14:30-0400Body jhmhdy277.49 kgDana Sloansandee Other [facility] Other 11-01-2022 14:30-0400Diastolic blood zcpievsn96 mm[Hg] Juanito Easterwood Other [facility] Other 11-01-2022 14:30-0400Respiratory rate20 /minDana Easterwood Other [facility] Other 11-01-2022 14:30-8395VzT8% (BldA) [Mass fraction]99 % Juanito Easterwood Other [facility] [employer] Other 11-01-2022 14:30-0400Systolic blood jwefscop688 mm[Hg] Juanito Easterwood Other [facility] Other 07-18-2022 14:00-0400Body xmfuxg040.4 cmDana Sloanersaint louis Other [facility] Other 07-18-2022 14:00-0400Body yxtsepoqmdq20.1 [degF]Juanito Easterwood Other [facility] Other 07-18-2022 14:00-0400Diastolic blood acfeldlq51 mm[Hg] Juanito Easterwood Other [employer] Other 07-18-2022 14:00-0400Respiratory rate18 /minDana Easterwood Other [facility] Other 07-18-2022 14:00-2721PrG6% (BldA) [Mass fraction]99 % Juanito Easterwood Other [facility] Other 07-18-2022 14:00-0400Systolic blood esvozvsj910 mm[Hg] Juanito Easterwood Other [facility] Other 06-30-2022 16:30-0400Body ldfyaf688.4 cmDana Easterwood Other [facility] [facility] Other 06-30-2022 16:30-0400Body mass index (BMI) [Ratio] 47.45 kg/m2Dana Easterwood Other [facility] Other 06-30-2022 16:30-0400Body xhvlsqieyrz67.1 [degF]Juanito Easterwood Other [facility] Other 06-30-2022 16:30-0400Body tombci644.22 kgDana Easterwood Other [facility] Other 06-30-2022 16:30-0400Diastolic blood mm[Hg]Juanito Easterwood Other [facility] Other 06-30-2022 16:30-0400Respiratory rate20 /minDana Easterwood Other [facility] Other 06-30-2022 16:30-5849WyR1% (BldA) [Mass fraction]99 % Juanito Easterwood Other [facility] Other 06-30-2022 16:30-0400Systolic blood gzivblaf985 mm[Hg] Juanito Easterwood Other [facility] Other 06-21-2022 10:30-0400Body fsllva339.4 cmDana Eastersaint louis Other [facility] [employer] Other 06-21-2022 10:30-0400Body mass index (BMI) [Ratio] 46.87 kg/m2Dana Easterwood Other [facility] Other 06-21-2022 10:30-0400Body mysphzlxxjx20 [degF]Juanito Easterwood Other [facility] Other 06-21-2022 10:30-0400Body jqmark828.86 kgDana Easterwood Other [facility] Other 06-21-2022 10:30-0400Diastolic blood mm[Hg] Juanito Easterwood Other [facility] Other 06-21-2022 10:30-0400Respiratory rate20 /minDana Easterwood Other [facility] Other 06-21-2022 10:30-7247RrP7% (BldA) [Mass fraction]99 % Juanito Sloanerwood Other [facility] Other 06-21-2022 10:30-0400Systolic blood vuvwyqdh877 mm[Hg] Juanito Sloanerwood Other [facility] Other 06-06-2022 10:30-0400Body maough829.4 cmDana Sloansandee Other [facility] Other 06-06-2022 10:30-0400Body mass index (BMI) [Ratio] 46.87 kg/m2Dana [facility] Other [facility] Other 06-06-2022 10:30-0400Body wutxnxoocpn21.2 [degF]Juanito Adrienne Other [facility] Other 06-06-2022 10:30-0400Body wqwuog263.86 kgDana SloanJumpSeller Other [facility] Other 06-06-2022 10:30-0400Diastolic blood xegafxdo39 mm[Hg] Juanito SloanerJumpSeller Other [facility] Other 06-06-2022 10:30-0400Respiratory rate20 /minDana Easterwood Other [facility] Other 06-06-2022 10:30-3455EgA2% (BldA) [Mass fraction]98 % [facility] Other 06-06-2022 10:30-0400Systolic blood jkrghjei943 mm[Hg] Juanito Deleon Other [place] [facility] Other Encounters Encounter DateEncounter TypeCare ProviderFacilityStart: 01-25-2025 End: 24-51-6808zkqyinfpaeQyvc J [facility]st[facility]ED[facility] INSPECT[facility] Work Phone: [phone]-Zsdrkrlve Sleep LabStart: 01-25-2025 End: 15-30-7109Bswlifg encounter procedureTahmina Flores [facility] Work Phone: Start: 01-24-2025 End: 40-37-6657edfewjrqklOfifq Cody KelchFacility:FTMCStart: 01-24-2025 End: 55-95-2091Ogezxrq encounter procedureDajose Ríos [phone]-[facility]Bl[facility] Start: 12-09-2024 End: 27-07-9314vcbeqfslptVmui J Sloansandee DREDGING INSPECTOR Work Phone: [facility] Work Phone: Start: 12-09-2024 End: 38-56-3994Ohaafsu encounter procedureCindy Bautista [facility] Work Phone: Start: 11-01-2024 End: 90-69-1431wecrejjajwGreyuaf HARWOODFacility:[facility]upational Health and WellnessStart: 10-27-2024 End: 76-36-6942qnltanybvgJifd J [place] DREDGING INSPECTOR Work Phone: [facility] Work Phone: Start: 10-27-2024 End: 14-09-6357Qwlrubk encounter procedureCindy Bautista [facility] Work Phone: Start: 09-12-2024 End: 21-99-1611Caqsjqq encounter procedureCindy Bautista [facility] Work Phone: Start: 08-10-2024 End: 38-49-9553Skgkun flowsheetFelicia C Windnagel GLOBAL CMO Work Phone: noms BM NEUROLOGYStart: 08-10-2024 End: 83-01-7669Saryvn flowsheetFelicia C Windnagel GLOBAL CMO Work Phone: noms BM NEUROLOGYStart: 08-10-2024 End: 31-04-9566Estmzr outpatient new 45 minutesFelicia C Windnagel GLOBAL CMO Work Phone: noms SWS NEURComment on above:Chronic migraine with aura without status migrainosus, not intractable (CMS/HCC) (Primary Dx); Cervical paraspinal muscle spasm; Bilateral occipital neuralgiaStart: 08-10-2024 End: 75-42-5142kfjuicduonNHDBNJX C WINDNAGELNot AvailableStart: 07-25-2024 End: 52-52-3908Gmktfot encounter procedureDakeily [facility] Work Phone: [facility] Work Phone: Start: 07-25-2024 End: 21-11-7151jhcogtqpdbKgew J [facility] DREDGING INSPECTOR Work Phone: [facility] Work Phone: Start: 07-22-2024 End: 24-05-3756xkllxzcxscKudv T AMESFacility:FTMCStart: 18-77-8347Gya-patient / Non-visitDakeily [facility] DREDGING INSPECTOR Work Phone: [facility] GroupCity [facility] Work Phone: Start: 06-27-2024 End: 55-50-2001wxafdfkqcoVeswqup Vytautas Giedraitis MDFacility:RAYNA Murphy Start: 06-13-2024 End: 22-51-8004kuslwnfgylMylt J [facility] DREDGING INSPECTOR Work Phone: [facility] Work Phone: Start: 06-13-2024 End: 50-85-2707Loqsswh encounter procedureDakeily [facility] DREDGING INSPECTOR Work Phone: [facility] Work Phone: Start: 05-06-2024 End: 78-04-2268tsdrbfhnvaDYPLMI BAKERFacility:[facility] Hospitaltart: 05-06-2024 End: 92-47-4670Ngkhech encounter procedureJude Aponte PA-C Work Phone: OtolaryngologyComment on above:Acute diffuse otitis externa of left ear (Primary Dx)Start: 05-02-2024 End: 74-74-8395Sqndmyh encounter procedureDakeily [facility] DREDGING INSPECTOR Work Phone: [facility] [address] Work Phone: Start: 05-02-2024 End: 71-59-8637lqrbxsqhcrHlof J [facility] DREDGING INSPECTOR Work Phone: [facility] Work Phone: Start: 04-05-2024 End: 24-17-9793dzqjlshvwwOsuo J [facility] DREDGING INSPECTOR Work Phone: [facility] Work Phone: Start: 04-05-2024 End: 78-93-7651Omutgdv encounter procedureDakeily [facility] DREDGING INSPECTOR Work Phone: [facility] Work Phone: Start: 04-01-2024 End: 68-54-2893Ytkkxe outpatient visit 25 minutesPaul Fito Eagle DO Work Phone: [facility] SWS UCComment on above:Cervical radicular pain (Primary Dx); Muscle spasmStart: 04-01-2024 End: 33-90-6319byklbwzogjPXKC Fito Gonzalez AvailableStart: 56-42-8224Djk-patient / Non-visitDana [facility] DREDGING INSPECTOR Work Phone: [facility] Work Phone: Start: 03-31-2024 End: 59-21-2589Iqsicnitn department patient visitTim Jonatan [facility] Start: 03-15-2024 End: 91-53-1253Ssdwurp encounter procedureDana [facility] DREDGING INSPECTOR Work Phone: [facility] Work Phone: Start: 90-85-7997Hli-patient / Non-visitDana [facility] DREDGING INSPECTOR Work Phone: [facility] Work Phone: Start: 03-12-2024 End: 63-13-0560Iimdzzfwc department patient visitNoabdoulaye Garcia [facility] Start: 02-29-2024 End: 89-20-6285axlhefvpfwPele J Eastersaint louisFacility:[facility] Hospitaltart: 02-29-2024 End: 47-43-5411Xxwtkrvb ReferredDana [facility] DREDGING INSPECTOR Work Phone: [facility]-LAB Path Spec [place] HospStart: 90-46-0377Ycm-patient / Non-visitDana [facility] DREDGING INSPECTOR Work Phone: [facility] GroupCity [facility] Work Phone: Start: 02-24-2024 End: 62-77-8091Cqqiexc encounter procedureDana [facility] DREDGING INSPECTOR Work Phone: [facility] Work Phone: Start: 79-70-8931Crj-patient / Non-visitDana Sloanst. [facility] DREDGING INSPECTOR Work Phone: [facility] Work Phone: Start: 02-19-2024 End: 22-72-7311Aantqmkzv department patient visitDana [facility] DREDGING INSPECTOR Work Phone: [facility]-Emergency Room Work Phone: Start: 12-02-2023 End: 07-93-2002inokqvjwnnYWHW Dana J [facility] Work Phone: [facility] Work Phone: Start: 12-02-2023 End: 35-32-0211Vygmomk encounter procedureAPRN Juanito Sloanst[facility] Work Phone: [facility] Work Phone: Start: 11-20-2023 End: 81-09-1252Bovlije encounter procedureAPREdilia Metcalf [facility] Work Phone: [facility]-Ultrasound Main [place] Work Phone: Start: 11-20-2023 End: 79-41-2714tkomwkvbnvVIOM Juanito Payton [facility] Work Phone: [facility] Work Phone: Start: 11-02-2023 End: 41-71-6969girkdndnwgYNF JUANITO LISANORTHLAND MEDICAL CENTERFacility:FTMCStart: 11-02-2023 End: 92-41-9463Srpxuta encounter procedureDAKEILY [facility] Start: 11-02-2023 End: 09-55-1411qrwrkhxvatQGZD Juanito Payton [place] Work Phone: [facility] Work Phone: Start: 11-02-2023 End: 09-45-5500Qlbnzfx encounter procedureAPRN Juanito Lisaerwood Work Phone: [facility] Work Phone: Start: 10-23-2023 End: 04-69-8661Ktmygsyck department patient visitWesly Bullock [facility] Start: 10-07-2023 End: 20-77-6187pqwqqfinvdEKJR Juanito Payton [facility] Work Phone: [facility] Work Phone: Start: 10-07-2023 End: 26-17-9623Guwduvm encounter procedureAPRN Juanito Lisaersaint louis Work Phone: [facility] Work Phone: Start: 10-03-2023 End: 59-92-4967Yoxruhvgn department patient visitAPREdilia Juanito Lisaersandee Work Phone: [facility]-Emergency Room Work Phone: Start: 08-26-2023 End: 74-22-2132nvzvfqvpktJADF Juanito Payton [facility] Centerersaint louis Work Phone: [facility] Work Phone: Start: 08-26-2023 End: 46-67-3637Qbndnoe encounter procedureAPRN Juanito Lisaerwood Work Phone: [facility] Work Phone: Start: 82-68-1628Lgn-patient / Non-visitAPRN Juanito Sloanlaquita Work Phone: [facility] GroupCity [facility] Work Phone: Start: 71-49-8584Flieuqjje encounterJude Aponte PA-C Work Phone: OtolaryngologyComment on above:LetterStart: 07-23-2023 End: 48-35-9153dxnkhpvwkbTCAEJN BAKERFacility:[facility] Hospitaltart: 07-23-2023 End: 62-49-7113Liufacf encounter procedureJude Aponte PA-C Work Phone: OtolaryngologyComment on above:H/O otitis media (Primary Dx); H/O acute otitis externaStart: 07-14-2023 End: 65-33-2221ueodejinmrEUVQ Dana J SloanJumpSeller Work Phone: [facility] Work Phone: Start: 07-14-2023 End: 66-95-7743Cqmmzkc encounter procedureRUTH ANN Metcalf Adrienne Work Phone: [facility] Work Phone: Start: 06-04-2023 End: 84-32-5581Pjgyguh encounter procedureRUTH ANN Juanito Adrienne Work Phone: [facility] Work Phone: Start: 05-13-2023 End: 23-29-2743Qxwqwfuqk department patient visitAPREdilia Juanito Adrienne Work Phone: [facility]-Emergency Room Work Phone: Start: 05-12-2023 End: 55-25-9457eeebuuqzyePTVZ Dana J SloanJumpSeller Work Phone: [facility] Work Phone: Start: 05-12-2023 End: 01-10-2376Cnitnyr encounter procedureAPREdilia Deleon Work Phone: [facility] Family [facility] Work Phone: Start: 05-07-2023 End: 73-47-1580Fejksogkk department patient visitAPREdilia Pagesaint louis Work Phone: [facility]-Emergency Room Work Phone: Start: 05-05-2023 End: 51-07-5074Fkohua outpatient visit 25 minutesMelissa Dorsey GLOBAL CMO Work Phone: [facility] UCComment on above:Acute diffuse otitis externa of left ear (Primary Dx)Start: 04-16-2023 End: 67-68-3685eqfzahgqxbDODQ Dana J [facility] Work Phone: [facility] Work Phone: Start: 04-16-2023 End: 90-70-7088Yalwpsfh ReferredAPREdilia Lisast. [facility] Work Phone: [facility]-LAB Path Spec [place] HospStart: 45-40-7080Ysxofmh encounter procedureAPREdilia Deleon Work Phone: [facility]-Start: 04-02-2023 End: 49-98-1042lgzofbqhknFbfj [place] Other [employer] Other Start: 68-69-1244Wqfijtttf encounterDana [facility] Medical Centertart: 03-27-2023 End: 74-48-9194Wgyivcapw department patient visitAPREdilia Deleon Work Phone: [facility]-Emergency Room Work Phone: Start: 02-23-2023 End: 29-35-4829knfpmrgthgYtqz [place] Other [employer] Other Start: 75-99-8499Wshgzcbzz encounterDakeily Bond [facility] McDuffietart: 02-18-2023 End: 55-28-4265mdmzhoclamNlvt [facility]st[facility] Other [facility] Ibetor Other Start: 85-25-2480Hhpugffzi encounterDana SloanTexas Health Harris Methodist Hospital Southlaketart: 86-86-3952Mzyvrz-up encounterDonkyree RichardNorwalk Memorial Hospital Care ClinicStart: 02-17-2023 End: 40-37-1893edjtlopafrMEZV Juanito Fito [facility] Work Phone: [employer] Other Start: 02-17-2023 End: 79-00-7325Xaddaxw encounter procedureAPREdilia Juanito Lis[facility] Work Phone: [facility]-Lab [facility] Tom[facility]tart: 41-62-9184Jphtrjxgjl RecurringAPREdilia Juanito Lisast[facility] Work Phone: [facility]-Weight Management Work Phone: Start: 02-17-2023 End: 03-09-6811Mtlxkir encounter procedureRUTH ANN Lisast[facility] Work Phone: [facility] Work Phone: Start: 02-12-2023 End: 09-40-4375okctghkewbYjpybz Cundiff Other [employer] Other Start: 36-72-5002Bqgiepjky encounterUriah [facility] Care ClinicStart: 01-15-2023 End: 78-26-0204zhfjrxiroxHdvpsz Cundiff Other [employer] Other Start: 73-37-7975Xpgbkmayb encounterEpifaniokyree Skinner [facility] Care ClinicStart: 01-14-2023 End: 12-61-6081fsrxaxiddcOkupjr Susanne Other noqualifyor Other Start: 67-42-8810Hkzpayrgj encounterUriah Susanne [facility] Care ClinicStart: 12-11-2022 End: 73-97-2882plijwltvkfTchd [facility] Other noqualifyor Other Start: 63-63-6037JA ONLINE E/M AUGUSTO VANG 02-16Dana KayleeMemorial Hospital Northtart: 12-04-2022 End: 87-72-0003klmejwmxcoClcs Fitt Other noqualifyor Other Start: 25-27-9476EQV FOR [employer]ES[employer] GROUP 2-10 30MDawn [facility] Coordinated Care ClinicStart: 11-24-2022 End: 62-61-1011rdzacalbcaZpigzg Cundiff Other noqualifyor Other Start: 61-09-8659Fiozcj-up encounterUriah Skinner [facility] Care ClinicStart: 54-32-3816Szjzxtwqh encounterDakeily PageL[facility] Family [facility] Hospitaltart: 10-15-2022 End: 59-83-7875tidmxqvccpTlegag Cundiff Other noqualifyor Other Start: 43-45-2078Cqhromtlk encounterDonkyree Hassan Referral CoordinatorStart: 09-26-2022 End: 61-61-2419uxbwbepgpaNtjd Eastersaint louis Other noqualifyor Other Start: 41-51-2737Nrwlibhop encounterDakeily [facility] Referral CoordinatorStart: 09-15-2022 End: 72-71-5611knfbivonvrIqik [facility] Other noqualifyor Other Start: 49-07-3274Sbzxasdnl encounterDakeily Pagesaint louisCYNDI [facility] Hospitaltart: 08-11-2022 End: 23-70-8512qtgqqynguhAhiu [facility] Other noqualifyor Other Start: 53-43-6246Jsftvv outpatient visit 25 minutes Juanito Bond [facility] Hospitaltart: 07-29-2022 End: 53-91-7345bvspyparndWctw Scovanner Other [employer]SLI Systems Ibetor Other Start: 30-49-4376Yqcnglmxq encounterNeftali Truong GastroenterologyStart: 07-28-2022 End: 15-35-4254Pxzuffhjq to same day surgery centerAPRN Juanito Lisast[facility] Work Phone: [facility]-Digestive Health Work Phone: Start: 07-28-2022 End: 07-97-2728efxcgdoeveKNMN Juanito J [facility] Work Phone: [facility] Work Phone: Start: 07-21-2022 End: 11-09-0350fwhytkskvzVqgg [facility] Other noqualifyor Other Start: 16-32-9367Nxkmlcrjj encounterDakeily LisaritikaLake View Memorial Hospital [facility] Hospitaltart: 07-14-2022 End: 63-57-1889npwyqervqpCoqx [facility] Other noqualifyor Other Start: 08-99-1401Lfrfle outpatient visit 15 minutes Juanito Bond [facility] Hospitaltart: 37-40-3613Kesqplif examination Juanito DeleonJesus Family [facility] Hospitaltart: 06-23-2022 End: 02-13-3911rvakhaqxobSdza [place] Other noqualifyor Other Start: 56-69-9141Imbryi outpatient visit 40 minutes Juanito Bond [facility] Hospitaltart: 61-07-8554Fldsbuwch encounter Moises Munoz Referral CoordinatorStart: 06-19-2022 End: 93-91-2556vvcqojnnezGpawkno Ditty Other noqualifyor Other Start: 31-37-4120WGYY visit [facility] Centerjefferson Moe [facility] GastroenterologyStart: 06-10-2022 End: 57-67-4456rxrgrzwyulGids [place] Other noqualifyor Other Start: 92-67-1945Saferrsee encounterDakeily Brooks [facility] Hospitaltart: 06-06-2022 End: 64-64-3492kihjemaazcVUFBF PARKERFacility:K5Ewyrj: 05-15-2022 End: 08-69-7862pcnxyrvriqSivx [place] Other noqualifyor Other Start: 34-79-1532Liponoxtl encounterDakeily DeleonMA[facility]O [facility] Family [facility] Hospitaltart: 05-08-2022 End: 83-48-6601rbzxezoxozJACE EASTERWOODFacility:C2Ssseu: 05-01-2022 End: 08-47-1143tmurkxyugqUfya [place] Other noqualifyor Other Start: 40-84-0089Tbpsnu outpatient visit 15 minutes Juanito DeleonMA[facility] Family [facility] Hospitalrt: 04-04-2022 End: 77-24-7711zamfxvukvbRixo Eastersaint louis Other noqualifyor Other Start: 56-77-7822Jfnheckwh encounterDana EasterwoodFPG [facility] Hospitaltart: 04-03-2022 End: 80-20-9808raawwdrowxQaof [facility]st[facility] Other [facility]ex[facility] Ibetor Other Start: 16-42-9784Rewgal outpatient visit 25 minutes Juanito [facility] Hospitaltart: 03-19-2022 End: 24-87-6147rhpqrdwxwkUqsl [facility] Other [employer] Other Start: 16-63-3305LG ONLINE E/M PHY VIRTUL 02-16Dana [facility]wood[facility] Hospitaltart: 03-13-2022 End: 73-65-4707srebcavnkmQelu [facility] Other [facility]ex[facility] Ibetor Other Start: 87-21-2879Aqabxgsoe encounterDana SloanwoodFPG [facility] Hospitaltart: 03-12-2022 End: 91-96-8926bdoagwzfvyRmzh [facility] Other noex[facility] Ibetor Other Start: 70-95-5592Hrxyuvxhk encounterDana SloanerwoodG [facility] Hospitaltart: 03-03-2022 End: 72-35-0338svanriccioQveyxmb Payal Other [employer] Other Start: 28-87-5503Nytuwjjmz encounterCameron DittyFPG Referral CoordinatorStart: 02-24-2022 End: 24-48-3558yqvdecawfuXiny [place] Other noqualifyor Other Start: 84-81-6851Fnberdzfb encounterDana EasterwoodFPG [facility] Hospitaltart: 02-17-2022 End: 97-32-9612zeibbqdoakFowa [place] Other noqualifyor Other Start: 36-46-2182Zunxhczhd encounterDana EasterwoodFPG [facility] Hospitalrt: 02-06-2022 End: 78-98-6310vfrmghcshtUsnq [place] Other noqualifyor Other Start: 45-89-2189Uxpnaryws encounterDana EasterwoodFPG [facility] Hospitalrt: 02-05-2022 End: 38-88-0972adcpzdbarfHXPH EASTERWOODFacility:N8Ardni: 02-04-2022 End: 40-62-3129agbbaarmbaUOOI EASTERWOODFacility:T2Juzzw: 01-28-2022 End: 24-26-1489wxmpokfmxzLuse [place] Other [employer] Other Start: 53-41-9618Gmbwdb outpatient visit 40 minutes Juanito SloanerwoodMAYO [facility] Hospitalrt: 01-22-2022 End: 82-51-9422knapshtaqrCftq [place] Other noqualifyor Other Start: 90-55-4407Qlvcxvynd encounterDana EasterwoodFPG [facility]gent Care ClydeStart: 01-20-2022 End: 70-49-0573nkvucqwtiuIqrt [place] Other noqualifyor Other Start: 23-26-4366Mbcabhwrv encounterDana EasterwoodFPG [facility] Hospitalrt: 01-16-2022 End: 48-07-3008uhvjrjrbghEfqc [place] Other noqualifyor Other Start: 95-79-1316Uaouhbuvr encounterDana EasterwoodFPG [facility] Hospitaltart: 01-13-2022 End: 96-04-9069pxsjktibcrKibyd Rishi Other noqualifyor Other Start: 42-20-0358Iqmwuodsm encounterDavid MorrisFPG Referral CoordinatorStart: 12-19-2021 End: 83-39-4899yhnnfubizeTlkf [place] Other noqualifyor Other Start: 43-05-0162Ushzyomdj encounterDana EasterwoodFPG Referral CoordinatorStart: 11-19-2021 End: 17-12-2737bwztklxqdzIypv [place] Other noqualifyor Other Start: 81-85-9246Imkgosypk encounterDana EasterwoodFPG [facility] Hospitaltart: 10-29-2021 End: 70-27-3903trpllyyklvWkcm [place] Other noqualifyor Other Start: 49-55-3819Ehkkjcvkd encounterDana EasterwoodFPG [facility] Hospitaltart: 10-14-2021 End: 15-84-2639iwmifqpzzcOuah [place] Other noqualifyor Other Start: 71-49-8257Qodkyw outpatient visit 40 minutes Juanito SloanerwoodFPG [facility] Hospitaltart: 34-80-9060Dfxlicpgn encounter Juanito EasterwoodFPG [facility] Hospitaltart: 68-61-9310gbehuiuvtcLKBO EASTERWOODFacility:B1Mbkla: 10-07-2021 End: 91-60-4675laccuohbrwKrfr [facility] Other noqualifyor Other Start: 51-96-0787Cdjrzdzsx encounterDana Memorial Medical Centertart: 09-26-2021 End: 83-30-9129wgmmwovhkcGtxh [facility] Other [employer] Other Start: 76-41-8286Oqsmku outpatient visit 40 minutes JuanitoMesilla Valley Hospitaltart: 09-19-2021 End: 48-10-8817tjfbqcuwisOukb [facility] Other noqualifyor Other Start: 45-44-8491Pfthfmcuo encounterDana Memorial Medical Centerrt: 09-17-2021 End: 55-45-9029wuisdqpgcxWffp [facility] Other noqualifyor Other Start: 57-07-9624Urmfib outpatient visit 40 minutes Juanito [facility] Centertart: 09-02-2021 End: 29-39-9693rhjobvhkjbQvvy [facility] Other [employer] Other Start: 83-14-4570Prugpvctv for general adult medical examination without abnormal findingsSt. Josephs Area [facility] Start: 80-01-5311Mmddfxw preventive medicine new pt age 18-39yrsDana [facility] Hospitaltart: 07-10-2021 End: 32-07-2270sejuagolihSU BLAKE GRAF .Facility:E3Ubnnj: 06-12-2021 End: 22-11-9853aqxcunhyjcRCOAKZP CASTILLOFacility:H1 Procedures DateProcedureProcedure DetailPerforming ClinicianStart: 74-07-1764JN cervical spine without contrastDana Adrienne VALLECILLO Work Phone: Start: 72-98-1394Ameou chest X-rayDana Adrienne VALLECILLO Work Phone: Start: 54-82-6884Sizxogw ultrasonography of kidneyAPREdilia Deleon Work Phone: Start: 84-78-9274Jrtqrptqxybqtcl of bilateral kidneys RUTH ANN Deleon Work Phone: Start: 69-13-0279Zwwqe chest X-rayAPREdilia Deleon Work Phone: Start: 21-53-6667SJ of facial bones with contrastRUTH ANN Deleon Work Phone: Start: 98-20-7799YK of head without contrastAPREdilia Deleon Work Phone: Start: 10-58-4879SBCV-CoV-2, Influenza & RSV (PCR)RUTH ANN Deleon Work Phone: Start: 99-65-9063Auxap cultureAPREdilia Deleon Work Phone: Start: 58-60-6606DW of facial bones with contrastRUTH ANN Deleon Work Phone: Start: 69-26-8889IsphlkrnowoffifitwzotpeeoiFAUK Dana Easterwood Work Phone: Start: 41-32-7231Ufzdvdungcg observation [Identifier] in Cervix by Cyto stainPaul Shagufta DO Work Phone: Start: 07-11-2015H/O: sectionH/O section x 1 previa.Jude Aponte PA-C Work Phone: Start: 03-56-7303ltubbrubqa 1Kmatthew stefany Comment on above:vag deliveryStart: 43-43-6806dvzkpy teeth extractionKayljey Lopez Plan of Treatment DateCare ActivityDetailAuthorStart: 05-54-7828Uvpia microalbumin profile DTaP,Tdap,Td Vaccine (7 - Tdap)[facility] Hospitaltart: 91-02-6737Apelqcmvf vaccinationInfluenza Vaccine (Season Ended)[facility] HealthcareStart: 10-12-2024 End: 94-51-4262Plvxuyp encounter /16/2025 1:00 PM EDT Office Visit [facility] [address] [address] Odette Hollins, GLOBAL CMO [address], [address] [phone] [facility] NEURStart: 08-16-2024 End: 45-72-0400Rgpxwrd encounter hdejfazku25/20/2025 9:00 AM EDT Office Visit [facility] [address] [place] [phone] Blake Graf, DO [address] [place] [address] [facility] BCP OBStart: 08-10-2024 End: 59-72-8983Baomavy encounter efhzrbxew52/14/2025 1:00 PM EDT Office Visit [facility] [address] [address] Odette Hollins, GLOBAL CMO [address]dez, [address] [phone] ArrivedNOMS [facility] NEURComment on above: ArrivedStart: 05-21-7027Oocluyp referralUniversity Hospitals [facility] Work Phone: Start: 05-16-2024 End: 03-02-3557Uyzxtxy encounter repjvgpni51/17/2025 3:55 PM EST Office Visit Otolaryngology [address] [place] [address] [place] [address] Jude Aponte PA-C [address] [place] [address] follow upOtolaryngologyComment on above:follow upStart: 51-59-7736Aaljsia [facility] Work Phone: Start: 88-77-0286Hobcy-19 Vaccine () Covid-19 Vaccine ()[facility]tart: 54-70-9355Wbiummkde vaccinationCity Hospitaltart: 70-55-0959Toywrmfhi for malignant neoplasm of cervixNOLA HealthcareStart: 59-03-0115Imfyasjnzkqkx pyogenes Ag [Presence] in Unspecified specimenHenry County Hospitaltart: 88-06-3767Srzbp chest X-rayXR chest 2V*[facility] Hospitaltart: 04-06-2476IP Chest 2 ViewsHenry County Hospitaltart: 50-51-4904DM Facial bones W contrast IVFAultman Orrville Hospitaltart: 92-24-9783PY of facial bones with contrastCT facial bones w [facility] Centertart: 52-14-1273ST of head without contrastCT head/brain wo [facility] Centertart: 82-72-0279KP Unspecified body region WO [facility] Centertart: 62-39-1838Cfsvwqhb identified in Urine by Culture [facility] Hospitaltart: 06-02-2860Xpkvled referralUniversity Hospitals Cleveland Medical Center Work Phone: Start: 41-05-5936MC Facial bones W contrast IV [facility] Hospitaltart: 80-83-3038HN of facial bones with contrastCT facial bones w [facility] Centertart: 03-30-2023 Behavioral Health ScreeningBehavioral Health ScreeningCity Hospitaltart: 15-33-8645Utepx-19 Vaccine ( season)Covid-19 Vaccine ()[facility]: 28-26-7238Hxnzwwhqw vaccinationInfluenza Vaccine (#1)[facility] HealthcareStart: 59-20-7353JbqrjkhnyHenry County Hospitaltart: 55-46-8976Gpmmyrwjp for malignant neoplasm of cervixNOMS HealthcareStart: 50-66-3117Udksuqhia for malignant neoplasm of cervixNOMS HealthcareStart: 17-12-7326Olmmjbg ScreeningAnxiety ScreeningCity Hospitaltart: 2008 Depression ScreeningDepression ScreeningCity Hospitaltart: 2008 Hepatitis C screeningHepatitis C ScreeningCity Hospitaltart: 43-50-0858IGK screeningHIV ScreeningCity Hospitaltart: 40-40-8960Ydompfhqu B Vaccine (3 of 3 - 3-dose series)Hepatitis B Vaccine (3 of 3 - 3-dose series)[facility] Start: 60-84-1375Reaemvoaucbm vaccinationPneumococcal Vaccine (1 of 2 - PCV) [facility] HospitalPatient EducationOhiohealth Dublin Methodist Hospital Ctr Work Phone: Patient referralOhiohealth Dublin Methodist [facility] Ctr Work Phone: [facility] Immunizations Immunization DateImmunizationNotesCare LmcwvvkbJencimwq80-37-3982Gl not use COVID-19 Pfizer 2 doseDana [facility] Other [facility]10-31-2021influenza, injectable, quadrivalent, preservative freeAPRN Juanito [facility] Work Phone: [facility]10-31-2021influenza, injectable, quadrivalent, contains preservativeDana [facility] Other [facility]10-31-2021influenza virus vaccine, unspecified formulationMelissa Dorsey NP Work Phone: [phone]-SnjmuLima City Hospital Bvpd04-09-5035 diphtheria, tetanus toxoids and pertussis vaccineDana [facility] [employer]PECTOR Work Phone: [facility]01-08-2021Do not use COVID-19 Pfizer 2 doseDana [place] Other [facility] HospitalComment on above: Result Comment: 2025-01-24: [id number] not use COVID-19 Pfizer 2 doseDana Easterwood Other [facility] HospitalComment on above: Result Comment: 2025-01-24: [id number] virus vaccine, split virus (incl. purified surface antigen)Juanito Sloanerwood Other [facility] Other [id number] virus vaccine, unspecified formulationAPRN Juanito [facility] Work Phone: [facility]10-28-2009influenza virus vaccine, unspecified formulationDavid Kelrojas [phone]-PsowiWayne Hospital09-28-2006 hepatitis B vaccine, adult dosageDana [facility] [employer]EDGING INSPECTOR Work Phone: [facility]08-27-2003hepatitis B vaccine, pediatric or pediatric/adolescent dosageDana [facility] Work Phone: [facility]08-27-2003measles, mumps and rubella virus vaccineDana [facility] DREDGING INSPECTOR Work Phone: [facility]08-27-2003TD(adult) unspecified formulation; Translations: [Td(adult) unspecified formulation]Juanito Sloanerwood DREDGING INSPECTOR Work Phone: [facility]02-02-1995diphtheria, tetanus toxoids and acellular pertussis vaccineDana [facility] [employer]EDGING INSPECTOR Work Phone: [facility]02-02-1995poliovirus vaccine, inactivatedDana [facility] [employer]EDG[employer] INSPECTOR Work Phone: [facility]02-02-1995poliovirus vaccine, unspecified formulationDavid Kelch [phone]-FuajdWayne Hospital04-26-1993 diphtheria, tetanus toxoids and acellular pertussis vaccineDana Easterwood DREDGING INSPECTOR Work Phone: [facility]04-26-1993haemophilus influenzae type b vaccine, conjugate unspecified formulationDana Easterwood DREDGING INSPECTOR Work Phone: [facility]04-26-1993Hib, unspecified formulationDavid Kelch [phone]-KndtpBlanchard Valley Health [facility] Fpse31-07-7271 measles, mumps and rubella virus vaccineDana [facility]st[facility] DREDGING INSPECTOR Work Phone: [facility]04-26-1993poliovirus vaccine, inactivatedDana Easterwood DREDGING INSPECTOR Work Phone: [facility]04-26-1993poliovirus vaccine, unspecified formulationDavid Kelch [phone]-MwpzbWayne Hospital11-14-1991 diphtheria, tetanus toxoids and acellular pertussis vaccineDana [facility] [employer]EDG[employer] INSPECTOR Work Phone: [facility]11-14-1991haemophilus influenzae type b vaccine, conjugate unspecified formulationDana Easterwood DREDGING INSPECTOR Work Phone: [facility]11-14-1991Hib, unspecified formulationDavid Kelch [phone]-NdfekWayne Hospital11-14-1991 poliovirus vaccine, inactivatedDana [facility] [employer]EDGING INSPECTOR Work Phone: [facility]11-14-1991poliovirus vaccine, unspecified formulationDavid Kelch [phone]-SvergBlanchard Valley Health [facility] Tciq90-34-7874 diphtheria, tetanus toxoids and acellular pertussis vaccineDana [facility] INSPECTOR Work Phone: [facility]09-10-1991haemophilus influenzae type b vaccine, conjugate unspecified formulationDana Easterwood DREDGING INSPECTOR Work Phone: [facility]09-10-1991Hib, unspecified formulationDavid Khushbu [phone]-VqqpbBlanchard Valley Health System [facility] Yppk84-87-7789 poliovirus vaccine, inactivatedDana [facility] DREDGING INSPECTOR Work Phone: [facility]09-10-1991poliovirus vaccine, unspecified formulationDavid Khushbu [phone]-YktffBlanchard Valley Health [facility] Payers DatePayer CategoryPayerPolicy [id number] [id number] [id number] 2.840.1.588773.3.579.2.593 [id number] 2.16.840.1.687755.3.57[id number] 2.840.1.246182.3.57[id number] 2..1.480008.3.57[id number] 2.840.1.927405.3.57[id number] 2.840.1.888983.3.57[id number] 2.840.1.238699.3.57[id number] 2.840.1.483094.3.57[id number] 2.16.840.1.633971.3.57[id number] 2.840.1.189507.3.57[id number] 2..840.1.894394.3.57[id number] 2.0.1.796186.3.57[id number] 2.0.1.856117.3.57[id number] 2.840.1.555076.3.57[id number] 2..1.851718.3.57[id number] 2.0.1.422894.3.57[id number] 2..1.619778.3.57[id number] 2..1.656040.3.579.2.56822-71-9589Ylaj-[id number] [id number] [id number] 2.16840.1.7[id number] 2.16.840.1.680726.3.579.2.531 [id number] 2.16.840.1.7[id number] 2..840.1.7[id number] 2.840.1.249459.3.579.2.531 [id number] 2.16.840.1.686094.3.579.2.531 Social History DateTypeDetailFacilityUnknown if ever smokedNoexcelsior [facility] Other Start: 07-23-2023 End: 56-42-2505Uat [facility]igned [facility]: 07-28-2022 End: 87-05-9902Jldplkr smoking status NHISEx-smoker (finding)[facility]: 28-31-4543Ber [facility] At [facility]: 85-82-6181Kkuiqww of tobacco useCurrent smokerNOMS HealthcareStart: 03-30-2005 End: 59-30-0389Yuhpjwm of tobacco useCigarette SmokerNOMS HealthcareStart: 05-05-2023 End: 43-67-8923Bumkozy use and exposureSmokeless tobacco non-userNOMS Healthcare Start: 09-67-6182Avo Assigned At BirthNot on fileNOMS HealthcareStart: 11-55-9012Jdympfq smoking status NHISOccasional tobacco smokerMercy Health Tiffin Hospital Start: 36-10-3771Ozdvnxw intakeCurrent non-drinker of alcohol (finding)[facility]: 07-23-2023 End: 89-81-2731Hqcrnin of Social functionCleMain Campus Medical CenterNational Score (1-100), lower number is lower euwj55SdwsezvgkMercy Health Tiffin HospitalTobacco smoking statusAultman Orrville [facility] Start: 06-17-2018 End: 46-69-9633NtmEyppyk (finding)[facility]: 19-48-1630Cbbbein smoking status NHISSmokes tobacco dailyNOMS HealthcareStart: 72-77-2312Vdrijghlq beverage intakeLifetime non-drinker (finding)[facility] Start: 05-85-5544Kpbamzb Commentcaffeine: 2-3 cups per dayNOMS HealthcareStart: 20-18-6345Tqleiimyk beverage intakeCurrent drinker of alcohol (finding)[facility] HealthcareStart: 28-78-3551Zboifpi Commentcaffeine: 2-3 cups per day. Alcohol 1- 2 times a monthNOMS HealthcareNEGATED: Highlighted rowMorrow County Hospital Medical Equipment Procedure CodeEquipment CodeEquipment Original TextEquipment IdentifierDatesPen [place] 30G X 5 MMStart: 84-02-9357Tri Needle, Diabetic (Sure Comfort Pen Needle) 32 gauge x 5/32 needleStart: 27-85-0313Vnq Needle, Diabetic 32 gauge x 5/32 needleStart: 18-59-5669Zgp Needle, Diabetic (Sure Comfort Pen Needle) 32 gauge x 5/32 needleStart: 72-99-5566Cwb Needle, Diabetic 32 gauge x 5/32 needleStart: 48-47-7968Hxf Needle, Diabetic (Sure Comfort Pen Needle) 32 gauge x 5/32 needleStart: 47-80-9477Exf Needle, Diabetic 32 gauge x 5/32 needleStart: 07-25-2024 Goals DatePatient GoalDesired Activity/State Functional Status OsejFcpbldusycWsejlgJqswpxco01-20-3673Tiffwnnavz StatusN/[facility]12-14-2024Functional StatusN/[facility]07-26-2024 Functional StatusN/[facility] Clinical Notes 09-02-2021 to 01-24-2025 Note Date & PwvnDzrfZhpzajyb23-33-6114 Hospital Discharge instructions Patient Education 01/24/2025 12:32:33 Upper Respiratory Infection, Adult, Vjkc-dx-Hsux Upper Respiratory Infection, Adult An upper respiratory infection (URI) affects the nose, throat, and upper airways that lead to the lungs. The most common type of URI is often called the common cold. URIs usually get better on their own, without medical treatment. What are the causes? A URI is caused by a germ (virus). You may catch these germs by: Breathing in droplets from an infected person's cough or sneeze. Touching something that has the germ on it (is contaminated) and then touching your mouth, nose, oreyes. What increases the risk? You are more likely to get a URI if: You are very young or very old. You have close contact with others, such as at work, school, or a health care facility. You smoke. You have long-term (chronic) heart or lung disease. You have a weakened disease-fighting system (immune system). You have nasal allergies or asthma. You have a lot of stress. You have poor nutrition. What are the signs or symptoms? Runny or stuffy (congested) nose. Cough. Sneezing. Sore throat. Headache. Feeling tired (fatigue). Fever. Not wanting to eat as much as usual. Pain in your forehead, behind your eyes, and over your cheekbones (sinus pain). Muscle aches. Redness or irritation of the eyes. Pressure in the ears or face. How is this treated? URIs usually get better on their own within 7 10 days. Medicines cannot cure URIs, but your doctor may recommend certain medicines to help relieve symptoms, such as: Axge-gbz-qhfpxvs cold medicines. Medicines to reduce coughing (cough suppressants). Coughing is a type of defense against infection that helps to clear the nose, throat, windpipe, and lungs (respiratory system). Take these medicinesonly as told by your doctor. Medicines to lower your fever. Follow these instructions at home: Activity Rest as needed. If you have a fever, stay home from work or school until your fever is gone, or until your doctor says you may return to work or school. ?You should stay home until you cannot spread the infection anymore (you are not contagious). ?Your doctor may have you wear a face mask so you have less risk of spreading the infection. Relieving symptoms Rinse your mouth often with salt water. To make salt water, dissolve 1 tsp (3 6 g) of salt in 1 cup(237 mL) of warm water. Use a cool-mist humidifier to add moisture to the air. This can help you breathe more easily. Eating and drinking Drink enough fluid to keep your pee (urine) pale yellow. Eat soups and other clear broths. General instructions Take pnhi-wwe-odfmrpm and prescription medicines only as told by your doctor. Do not smoke or use any products that contain nicotine or tobacco. If you need help quitting, ask your doctor. Avoid being where people are smoking (avoid secondhand smoke). Stay up to date on all your shots (immunizations), and get the flu shot every year. Keep all follow-up visits. How to prevent the spread of infection to others Wash your hands with soap and water for at least 20 seconds. If you cannot use soap and water, use hand associate project manager. Avoid touching your mouth, face, eyes, or nose. Cough or sneeze into a tissue or your sleeve or elbow. Do not cough or sneeze into your hand or into the air. Contact a doctor if: You are getting worse, not better. You have any of these: ?A fever or chills. ?Brown or red mucus in your nose. ?Yellow or brown fluid (discharge)coming from your nose. ?Pain in your face, especially when you bend forward. ?Swollen neck glands. ?Pain when you swallow. ?White areas in the back of your throat. Get help right away if: You have shortness of breath that gets worse. You have very bad or constant: ?Headache. ?Ear pain. ?Pain in your forehead, behind your eyes, and over your cheekbones (sinus pain). ?Chest pain. You have long-lasting (chronic) lung disease along with any of these: ?Making high-pitched whistling sounds when you breathe, most often when you breathe out (wheezing). ?Long-lasting cough (more than 14 days). ?Coughing up blood. ?A change in your usual mucus. You have a stiff neck. You have changes in your: ?Vision. ?Hearing. ?Thinking. ?Mood. These symptoms may be an emergency. Get help right away. Call 911. Do not wait to see if the symptoms will go away. Do not drive yourself to the hospital. Summary An upper respiratory infection (URI) is caused by a germ (virus). The most common type of URI is often called the common cold. URIs usually get better within 7 10 days. Take iwtc-jtl-aoowqsh and prescription medicines only as told by your doctor. This information is not intended to replace advice given to you by your health care provider. Make sure you discuss any questions you have with your health care provider. Document Revised: 10/16/2021 Document Reviewed: 10/16/2021 [employer] Patient Education 2023 [employer]. Follow Up Care 01/24/2025 11:36:46 With:ADRIENNE MELLOJUANITO Address: [address] [place] [address] [place] [phone] When: Unknown [facility] 10-28-2025 NotePatient Education Infectious Disease Upper Respiratory Infection, Adult An upper respiratory [...] usually get better on their own within 7?10 days. Medicines cannot cure URIs, but your doctor may recommend certain medicines to help relieve symptoms, such as: ??? Hihh-fmi-texlfsv cold medicines. ??? Medicines to reduce coughing [...] you may return to work or school. ? You should stay home until you cannot spread the infection anymore (you are not contagious). ? Your doctor may have you wear a face mask so you have less risk of spreading the infection. Relieving symptoms ??? Rinse your mouth often with salt water. To make salt water, dissolve ??1 tsp (3?6 g) of salt in1 cup (237 mL) of warm water. ??? Use a cool-mist humidifier to add moisture to the air. This can help you breathe more easily. Eating and drinking ??? Drink enough fluid to keep your pee (urine) pale yellow. ??? Eat soups and other clear broths. General instructions ??? Take pcec-sah-tshjjnm and prescription medicines only as told by [...] cannot use soap and water, use hand associate project manager. ??? Avoid touching your mouth, face, eyes, or nose. ??? Cough or sneeze into a tissue or your sleeve or elbow. Do not cough or sneeze into your hand orinto the air. Contact a doctor if: ??? You are getting worse, not better. ??? You have any of these: ? A fever or chills. ? Brown or red mucus in your nose. ? Yellow or brown fluid (discharge)coming from your nose. ? Pain in your face, especially when you bend forward. ? Swollen neck glands. ? Pain when you swallow. ? White areas in the back of your throat. Get help right away if: ??? You have shortness of breath that gets worse. ??? You have very bad or constant: ? Headache. ? Ear pain. ? Pain in your forehead, behind your eyes, and over your cheekbones (sinus pain). ? Chest pain. ??? You have long-lasting (chronic) lung disease along with any of these: ? Making high-pitched whistling sounds when you breathe, most often when you breathe out (wheezing). ? Long-lasting cough (more than 14 days). ? Coughing up blood. ? A change in your usual mucus. ??? You have a stiff neck. ??? You have changes in your: ? Vision. ? Hearing. ? Thinking. ? Mood. These symptoms may be an emergency. [...] cold. ??? URIs usually get better within 7?10 days. ??? Take qtcb-qwg-iadtqgl and prescription med (more content not included)... [facility]07-31-2025 Evaluation note* Diagnosis Onset Date Resolution Status Admit Date Anxiety acuteJuly 2024 8:33amBipolar 2 disorderacuteJuly 2024 8:33amBMI 40.0-44.9, adultacuteJuly 2024 8:33amDepressionacuteJuly 2024 8:33am Fatty liveracuteJuly 2024 8:33amGastroesophageal reflux disease without esophagitisacuteJuly 2024 8:33amHLD (hyperlipidemia)acuteJuly 2024 8:33amHTN (hypertension)acuteJuly 2024 8:33amPrediabetesacuteJuly 2024 8:33amPTSD (post-traumatic stress disorder)acuteJuly 2024 8:33am Pulsatile tinnitus of both earsacuteJuly 2024 8:33amVitamin D deficiency acuteJuly 2024 8:33amAnxietyacuteSept2024 9:39amBipolar 2 disorderacuteSept2024 9:39amBMI 40.0-44.9, adultacuteSept2024 9:39amDepressionacuteSept2024 9:39amFatty liveracuteSept2024 9:39amGastroesophageal reflux disease without esophagitisacute December 09, 2024 9:39amHLD (hyperlipidemia)acuteSept2024 9:39am HTN (hypertension)acuteSept2024 9:39amPrediabetesacuteSept2024 9:39amPTSD (post-traumatic stress disorder)acuteSept2024 9:39amPulsatile tinnitus of both earsacuteSept2024 9:39amVitamin D deficiencyacuteSept2024 9:39am [facility] Work Phone: 1(795) 916-854506-16-2025 Evaluation note* Diagnosis Onset Date Resolution Status Admit Date Bipolar 2 disorder acuteJune 2024 2:26pmBMI 45.0-49.9, adultacuteJune 2024 2:26pm Gastroesophageal reflux disease without esophagitisacuteJune 2024 2:26pm HLD (hyperlipidemia)acuteJune 2024 2:26pmHTN (hypertension)acuteJune 2024 2:26pmPrediabetesacuteJune 2024 2:26pmPTSD (post-traumatic stress disorder)acuteJune 2024 2:26pmPulsatile tinnitus of both earsacuteJune 2024 2:26pmVitamin D deficiencyacuteJune 2024 2:26pmBipolar 2 disorderacuteJuly 2024 8:33amBMI 45.0-49.9, adultacuteJuly 2024 8:33amGastroesophageal reflux disease without esophagitisacuteJuly 2024 8:33amHLD (hyperlipidemia)acuteJuly 2024 8:33amHTN (hypertension)acuteJuly 2024 8:33amPrediabetesacuteJuly 2024 8:33amPTSD (post-traumatic stress disorder)acuteJuly 2024 8:33amPulsatile tinnitus of both earsacute Diane 2024 8:33amVitamin D deficiencyacuteJuly 2024 8:33am [facility] Work Phone: 1(303) 145-273206-16-2025 Evaluation note* Diagnosis Onset Date Resolution Status Admit Date Bipolar 2 disorder acuteJune 2024 2:26pmBMI 45.0-49.9, adultacuteJune 2024 2:26pm Gastroesophageal reflux disease without esophagitisacuteJune 2024 2:26pm HLD (hyperlipidemia)acuteJune 2024 2:26pmHTN (hypertension)acuteJune 2024 2:26pmPrediabetesacuteJune 2024 2:26pmPTSD (post-traumatic stress disorder)acuteJune 2024 2:26pmPulsatile tinnitus of both earsacuteJune 2024 2:26pmVitamin D deficiencyacuteJune 2024 2:26pmAnxietyacuteJuly 2024 8:33amBipolar 2 disorderacuteJuly 2024 8:33amBMI 40.0-44.9, adultacuteJuly 2024 8:33amDepressionacuteJuly 2024 8:33amFatty liver acuteJuly 2024 8:33amGastroesophageal reflux disease without esophagitis acuteJuly 2024 8:33amHLD (hyperlipidemia)acuteJuly 2024 8:33amHTN (hypertension)acuteJuly 2024 8:33amPrediabetesacuteJuly 2024 8:33am PTSD (post-traumatic stress disorder)acuteJuly 2024 8:33amPulsatile tinnitus of both earsacuteJuly 2024 8:33amVitamin D deficiencyacuteJuly 2024 8:33amAnxietyacuteDecember 09, 2024 9:39amBipolar 2 disorderacute December 09, 2024 9:39amBMI 40.0-44.9, adultacuteDecember 09, 2024 9:39am DepressionacuteDecember 09, 2024 9:39amFatty liveracuteDecember 09, 2024 9:39amGastroesophageal reflux disease without esophagitisacuteDecember 09, 2024 9:39amHLD (hyperlipidemia)acuteDecember 09, 2024 9:39amHTN (hypertension)acuteDecember 09, 2024 9:39amPrediabetesacuteDecember 09, 2024 9:39amPTSD (post-traumatic stress disorder)acuteDecember 09, 2024 9:39am Pulsatile tinnitus of both earsacuteDecember 09, 2024 9:39amVitamin D deficiencyacuteDecember 09, 2024 9:39am [facility] Work Phone: 1(942) 525-587105-14-2025 History of Present illness Narrative* Odette Hollins, VAMSHI - 08/10/2024 1:00 PM EDT Images from the original note were not included. CHIEF COMPLAINT REASON FOR VISIT : GLOBAL CMO HPI: Lisandra Solis is a 34 y.o. female who presents for evaluation of headaches. Medical history includes anxiety, depression, hypertension, and migraine headaches. This list is not all inclusive. Headache started since she was in high school. The headaches stopped for 1-2 years and started back in herfreshman year. The headaches are the same type but are more frequent. Prior to the headaches she gets a pulsation sensation and then they become a strong pressure. The headaches are like a band around the back of her head. The headaches occur every other day and can last all day. If she takes Tylenol it helps sometimes. She does have photophobia, phonophobia, and nausea. She denies emesis. She den ies vision changes but gets lightheaded when they are severe if she stands up quickly. Stress and lack of sleep are triggers for the headaches. She does not sleep well even with melatonin. She has trouble getting to and staying asleep. She does not snore. She denies waking up short of breath. She never feels rested. She does not nap. Headaches are not worse at any particular time of day. Ibuprofen helps some. She is on flexeril which helps calm her body but not with headaches. She has not been on abortive therapy. She denies family history of headaches. She denies head trauma. CURRENT MEDICATIONS: ALLERGIES/DISCONTINUE MEDICATIONS Current Outpatient Medications Medication Instructions amLODIPine (Norvasc) 5 MG tablet Every 24 hours Aspirin Low Dose 81 mg, 2 times daily cyclobenzaprine (FLEXERIL) 10 mg, Oral, 3 times daily PRN DULoxetine (Cymbalta) [address] capsule 1 capsule, Every 24 hours ibuprofen 800 MG tablet Every 8 hours lisinopril-hydroCHLOROthiazide 20-12.5 MG tablet TAKE 2 TABLETS BY MOUTH EVERY DAY FOR 90 DAYS Naprosyn 500 mg nortriptyline (PAMELOR) 25 mg, Oral, Nightly omeprazole (PriLOSEC) [address] capsule TAKE 1 CAPSULE BY MOUTH EVERY DAY 30 MINUTES BEFORE MORNING MEAL FOR 90 DAYS predniSONE (Deltasone) 10 MG tablet 1 po tid with food x 5 days Allergies Allergen Reactions Hydrocodone-Acetaminophen Itching Other Reaction(s): hives Buspirone Other Reaction(s): Nightmares Cephalexin Hives Hydrocodone Other Reaction(s): Itching Zolmitriptan Other Reaction(s): Unknown There are no discontinued medications. PAST MEDICAL HISTORY: SURGICAL/SOCIAL/FAMILY HISTORY DEPRESSION SCREEN: Past Medical History: Diagnosis Date Anxiety Cholelithiasis 2014 Depression ([facility]) H/O oral surgery Hypertension ([facility]) Implanon removal 2011 Menorrhagia 2012 Migraine headache ([facility]) 2010,2008, 2014 () Past Surgical History: Procedure Laterality Date SECTION, LOW TRANSVERSE 2015 CHOLECYSTECTOMY 2014 Disease:Cholelithiasis OTHER SURGICAL HISTORY 2015 essure TENDON REPAIR left ankle VAGINAL DELIVERY 2008,2010 XR HYSTEROSALPINGOGRAM Social History Tobacco Use Smoking status: Former Average packs/day: 0.5 packs/day for 15.0 years (7.5 ttl pk-yrs) Types: Cigarettes Start date: 2005 Smokeless tobacco: Never Vaping Use Vaping status: Never Used Substance Use Topics Alcohol use: Yes Comment: caffeine: 2-3 cups per day. Alcohol 1-2 times a month Drug use: Never Family History Problem Relation Name Age of Onset Hypertension Mother Diabetes type II Mother Other (lumbar stenosis) Mother No Known Problems Father Depression Sister Anxiety disorder Sister No Known Problems Brother Breast cancer Maternal Grandmother Diabetes Maternal Grandmother Hyperlipidemia Maternal Grandmother Breast cancer Paternal Grandmother Depression: Not at risk (12/31/2020) Received from [employer] PHQ-2 Total Score: 0 REVIEW OF SYMPTOMS: Review of Systems Constitutional: Negative for activity change, chills and fever. HENT: Negative for congestion. Eyes: Negative for visual disturbance. Respiratory: Negative for cough and shortness of breath. Cardiovascular: Negative for chest pain and palpitations. Mild generalized edema Gastrointestinal: Negative for abdominal pain, nausea and vomiting. Genitourinary: Negative for difficulty urinating. Musculoskeletal: Positive for myalgias, neck pain and neck stiffness. Negative for arthralgias, back pain and gait problem. Skin: Negative for rash. Neurological: Positive for light-headedness and headaches. Negative for dizziness, tremors and weakness. Psychiatric/Behavioral: Positive for sleep disturbance. OBJECTIVE: 08/10/2024 1:07 PM 04/01/2024 6:09 PM 08/12/2023 11:21 AM Vitals BMI 46.36 kg/m2 45.32 kg/m2 45.32 kg/m2 BSA (m2) 2.14 m2 2.12 m2 2.12 m2 Systolic 130 110 Diastolic 74 70 Heart Rate 78 SpO2 98 % Temp 98.1 F Height (in) 5' Weight (lb) 237.4 234 234 Visit Report Report Report Report EXAM: Neurological Exam Mental Status Awake, alert and oriented to person, place and time. Recent and remote memory are intact. Speech isnormal. Language is fluent with no aphasia. Attention and concentration are normal. Fund of knowledge is appropriate for level of education. Cranial Nerves CN II: Visual smith full to confrontation. CN III, IV, : Extraocular movements intact bilaterally. Normal lids and orbits bilaterally. Pupils equal round and reactive to light bilaterally. CN V: Facial sensation is normal. CN VII: Full and symmetric facial movement. CN VIII: Hearing is normal. CN IX, X: Palate elevates symmetrically. Normal gag reflex. CN XI: Shoulder shrug strength is normal. CN XII: Tongue midline without atrophy or fasciculations. Decreased ROM of cervical spine. Motor Strength is 5/5 throughout all four extremities. Sensory Light touch is normal in upper and lower extremities. Temperature is normal in upper and lower extremities. Vibration is normal in upper and lower extremities. Reflexes Deep tendon reflexes are 2+ and symmetric in all four extremities. Coordination Right: Prlzub-sg-ozwd normal. Rapid alternating movement normal. Ojss-bg-tbhv normal.Left: Nokweg-rf-uagr normal. Rapid alternating movement normal. Ptta-ym-ntjm normal. Gait Casual gait is normal including stance, stride, and arm swing. PROCEDURE: NONE ASSESSMENT AND PLAN: Muscle Tension headaches/Occipital Neuralgia. 34 y.o. female who presents for evaluation of headaches. Medical history includes anxiety, depression, hypertension, and migraine headaches. This list is not all inclusive. Headache started since shewas in high school. The headaches stopped for 1-2 years and started back in her freshman year The headaches are most consistent with occipital neuralgia wit decreased ROM of the cervical spine and occiput tenderness bilaterally. Muscle tension headaches is a consideration as well. She is on Flexeril. We will consider changing this to tizanidine. We will add pamelor and order physical therpy and see how she responds. PLAN: Continue flexeril 10mg for muscle tension/spasms. Consider changing to tizanidine Add Pamelor 25mg at bed Consider Occipital blocks PT for cervical muscle spasms and tightness I counseled the patient on the possible diagnosis, prognosis, and possible treatment options. I will see the patient back in 8 weeks, or sooner if needed, to make further recommendations Diagnoses and all orders for this visit: Chronic migraine with aura without status migrainosus, not intractable (CMS/HCC) - nortriptyline (Pamelor) 25 MG capsule; Take 1 capsule (25 mg) by mouth at bedtime - Ambulatory referral to Physical Therapy; Future Cervical paraspinal muscle spasm - Ambulatory referral to Physical Therapy; Future Bilateral occipital neuralgia The nurse practitioner assisted the physician in the development of the history, portions of the physical exam, and implementation of the plan of care under direct physician supervision. Patient seenby Odette Hollins APRN and Dr Vargas documented in this encounterWestern [facility] [id number] Evaluation note* Diagnosis Onset Date Resolution Status Admit Date [facility] 10:32amMorbid (severe) obesity due to excess caloriesacute June 13, 2024 10:32amPrediabetesacuteMar 2024 10:32amPTSD (post- traumatic stress disorder)[facility] 20[facility] 10:32amPulsatile tinnitus of both earsacute[facility] 2024 10:32am [facility] Work Phone: 1(828) 514-999002-07-2025 NoteHNO ID: [id number] Author: JUDE APONTE PA-C Service: ? Author Type: Physician Emergency Veterinary Technician Type: Progress Notes Filed: 05/06/2024 14:39 Note Text: CC: Lisandra Solis is a 34 year old female seen as a return patient with a history of recurrent ear infections. Presents for left ear pain IMPRESSION, PLANS and RECOMMENDATIONS: (H60.312) Acute diffuse otitis externa of left ear (primary encounter diagnosis) ~otorrhea in left ear - removed with suction. Canal is mildly irritated underneath. TM normal ~prescribed Vosol 4 drops left ear twice daily for 7 days ~follow up with me in 1-2 weeks if no improvement HPI: Lisandra is a 34 year old who reports left ear pain. Recalls she had 2 ear infections since she saw me last in June. These are characterized by severe pain with fluttery hearing. Denies otorrhea. Known TMJ. Current pain is felt in left tragus region - does not feel like an active infection. ALLERGIES Allergen Reactions - Vicodin [Hydrocodon* Itching Current Outpatient Medications Medication Sig - amLODIPine (NORVASC) 2.5 mg tablet Take 1 tablet by mouth once daily. - hydrochlorothiazide (HYDRODIURIL, ESIDRIX) 25 mg tablet Take 25 mg by mouth once daily. - acetic acid (VOSOL) 2 % otic solution Use 4 Drops in the left ear two times a day. - Hydrocortisone 0.5 % lotn Twice daily (Patient not taking: Reported on 05/06/2024) - naproxen (NAPROSYN) 500 mg tablet Take 500 mg by mouth twice daily with meals. (Patient not taking: Reported on 05/06/2024) No current facility-administered medications for this visit. No past medical history on file. No past surgical history on file. Social History: Social History Tobacco Use - Smoking status: Some Days Current packs/day: 0.00 Types: Cigarettes Last attempt to quit: 03/06/2010 Years since quittin.1 - Smokeless tobacco: Never Substance Use Topics - Alcohol use: No - Drug use: No PHYSICAL EXAM: On physical examination Lisadnra is a well-developed, well nourished female. LMP 06/24/2015 No weight on file for this encounter. Cranial nerves II-XII are grossly intact Mental status revealed patient to be alert and oriented. Mood is appropriate. Details of the physical examination: HEAD AND FACE: Physical examination of the head, neck, external nose, external ears, mouth and face fails to demonstrate any significant abnormality or asymmetry to critical face to face observation. Normocephalic, no masses, lesions, tenderness or abnormalities. SKIN: Skin color, texture, turgor normal, no suspicious rashes or lesions EARS: Right external ear normal Right EAC normal Right TM normal Left external ear normal Left EAC has otorrhea - removed with suction - underlying canal is mildly irritated Left TM normal after cleaning Jude Aponte PA-C Medical Decision Making: Problems: Low: Acute, uncomplicated illness or injury Risk: Low: Low risk from testing/treatment Moderate: Drug management Medical Decision Making Level: [facility] of Present illness Narrative* Jude Aponte PA-C - 05/06/2024 1:30 PM EST CC: Lisandra Solis is a 34 year old female seen as a return patient with a history of recurrent ear infections. Presents for left ear pain IMPRESSION, PLANS and RECOMMENDATIONS: (H60.312) Acute diffuse otitis externa of left ear (primary encounter diagnosis) ~otorrhea in left ear - removed with suction. Canal is mildly irritated underneath. TM normal ~prescribed Vosol 4 drops left ear twice daily for 7 days ~follow up with me in 1-2 weeks if no improvement HPI: Lisandra is a 34 year old who reports left ear pain. Recalls she had 2 ear infections since shesaw me last in June. These are characterized by severe pain with fluttery hearing. Denies otorrhea. Known TMJ. Current pain is felt in left tragus region - does not feel like an active infection. ALLERGIES Allergen Reactions Vicodin [Hydrocodon* Itching Current Outpatient Medications Medication Sig amLODIPine (NORVASC) 2.5 mg tablet Take 1 tablet by mouth once daily. hydrochlorothiazide (HYDRODIURIL, ESIDRIX) 25 mg tablet Take 25 mg by mouth once daily. acetic acid (VOSOL) 2 % otic solution Use 4 Drops in the left ear two times a day. Hydrocortisone 0.5 % lotn Twice daily (Patient not taking: Reported on 05/06/2024) naproxen (NAPROSYN) 500 mg tablet Take 500 mg by mouth twice daily with meals. (Patient not taking:Reported on 05/06/2024) No current facility-administered medications for this visit. No past medical history on file. No past surgical history on file. Social History: Social History Tobacco Use Smoking status: Some Days Current packs/day: 0.00 Types: Cigarettes Last attempt to quit: 03/06/2010 Years since quittin.1 Smokeless tobacco: Never Substance Use Topics Alcohol use: No Drug use: No PHYSICAL EXAM: On physical examination Lisandra is a well-developed, well nourished female. LMP 06/24/2015 No weight on file for this encounter. Cranial nerves II-XII are grossly intact Mental status revealed patient to be alert and oriented. Mood is appropriate. Details of the physical examination: HEAD AND FACE: Physical examination of the head, neck, external nose, external ears, mouth and facefails to demonstrate any significant abnormality or asymmetry to critical face to face observation.Normocephalic, no masses, lesions, tenderness or abnormalities. SKIN: Skin color, texture, turgor normal, no suspicious rashes or lesions EARS: Right external ear normal Right EAC normal Right TM normal Left external ear normal Left EAC has otorrhea - removed with suction - underlying canal is mildly irritated Left TM normal after cleaning Jude Aponte PA-C Medical Decision Making: Problems: Low: Acute, uncomplicated illness or injury Risk: Low: Low risk from testing/treatment Moderate: Drug management Medical Decision Making Level: 3 - Low documented [facility] encounterMer[facility] Instructions* Patient Instructions* Jude Aponte PA-C - 05/06/2024 1:23 PM EST Use the acetic acid (Vosol) 4 drops twice daily for 7 days Follow up in 1-2 weeks if no improvement documented in this encounterMer[facility]25 Radiology [facility] [place] [address] [address] CT Scan Report Signed Patient: Lisandra Solis MR#: [id number] : 1990 Acct:[id number] Age/Sex: 34 / F ADM Date: 5 [facility] Attending Dr: Juanito Deleon APRN Copies to: Juanito Deleon APRN~ Ordering Provider: Juanito Deleon APRN Date of Service: 05/02/24 CT/CT cervical spine wo con: M54.12 - Radiculopathy, cervical region CT CERVICAL SPINE WITHOUT CONTRAST WITH 3D RECONSTRUCTIONS: CLINICAL HISTORY: Neck pain right upper extremity radiculopathy. COMPARISON: CT cervical spine 06/28/2018 TECHNIQUE: Spiral axial unenhanced images were obtained through the cervical spine. Sagittal, coronal and 3D volume-rendered reconstructions were also reviewed. This CT exam was performed using one or more following dose reductiontechniques: Automated exposure control, adjustment of the mA and/or kV accordingto patient size, or use of iterative reconstruction technique. FINDINGS: No fracture. Vertebral body heights appear maintained. Mild spondylosis C5-C7. Facet joints demonstrate minimal degenerative change. No prevertebral soft tissue swelling. Visualized lung apices demonstrate no acute process. CT/CT cervical spine wo con IMPRESSION: NO CERVICAL SPINE FRACTURE Impression dictated by: Jeet Pascual Jr., D.O.05/02/2024 4:27 PM Dictation Location: [place] [address] Transcribed By: [facility] 05/02/24 1627 Dictated By: Jeet Pascual Jr, DO 05/02/24 162 Signed By: 05/02/24 1627 [facility]01-07-2025 Evaluation note* Diagnosis Onset Date Resolution Status Admit Date Cervical radicular pain acuteJanuary 2024 1:40pmCervical spine painacuteJanuary 2024 1:40pm Complaint of paresthesiaacuteJanuary 2024 1:40pmFluid retentionacuteMarch 2024 10:32amMorbid (severe) obesity due to excess caloriesacuteMarch 2024 10:32amPrediabetesacuteMar 2024 10:32amPTSD (post-traumatic stress disorder)acuteMarch 2024 10:32amPulsatile tinnitus of both earsacuteMarch 2024 10:32am [facility] Work Phone: 1(675) 454-129101-03-2025 History of Present illness Narrative* Kevin Eagle, DO - 04/01/2024 5:50 PM EST HPI: Historian of HPI: patient Lisandra Solis is a 34 y.o. female who presents today to the Urgent Care with the following complaints and denials due neck pain which has been present for 3 day(s). C/O Denies Symptom Comments [] [x] swelling [] [x] ecchymosis [] [x] erythema [x] [] tingling [] [x] numbness [x] [] Pain radiation [x] [] Weakness [x] [] Decreased ROM [] [x] Trauma Additional Comments: pt has taken motrin OTC medication without relief Pt admits to cold application to the affected area Pt c/o of middle to the right neck pain, down arm and into hand. Pt stated the pain is working its way to the left side of her neck and slowly going down her left arm. Pt stated she is having tingling in the thumb and pointer finger of right hand. Pt was seen at [facility] yesterday and was told nothing is wrong and was given robaxin with no relief. ROS: A complete system ROS was performed and negative aside from the pertinent positives noted in the HPI and PE. Physical Exam Constitutional: Appearance: Normal appearance. Cardiovascular: Rate and Rhythm: Normal rate and regular rhythm. Pulmonary: Effort: Pulmonary effort is normal. Breath sounds: Normal breath sounds. Musculoskeletal: General: Tenderness present. Comments: Muscle tenderness of the right trap and paracervical region. Neurological: General: No focal deficit present. Mental Status: She is alert. Comments: Reflexes appear normal. Psychiatric: Mood and Affect: Mood normal. Diagnoses and all orders for this visit: Cervical radicular pain (Primary) - Discontinue: predniSONE (Deltasone) 10 MG tablet; 1 po tid with food x 5 days - predniSONE (Deltasone) 10 MG tablet; 1 po tid with food x 5 days Muscle spasm - Discontinue: cyclobenzaprine (Flexeril) 10 MG tablet; Take 1 tablet (10 mg) by mouth 3 (three) times a day as needed for muscle spasms for up to 7 days - cyclobenzaprine (Flexeril) 10 MG tablet; Take 1 tablet (10 mg) by mouth 3 (three) times a day as needed for muscle spasms for up to 7 days Use heat 20 minutes 2 times a day. Stretches of area involved as tolerated. Slowly return to normalactivities. documented in this encounterWestern Missouri Mental Health [id number] Hospital Discharge instructions Patient Education 03/31/2024 16:26:33 Shoulder Pain Shoulder Pain Many things can cause shoulder pain, including: An injury to the shoulder. Overuse of the shoulder. Arthritis. The source of the pain can be: Inflammation. An injury to the shoulder joint. An injury to a tendon, ligament, or bone. Follow these instructions at home: Pay attention to changes in your symptoms. Let your health care provider know about them. Follow these instructions to relieve your pain. If you have a removable sling: Wear the sling as told by your provider. Remove it only as told by your provider. Check the skin around the sling every day. Tell your provider about any concerns. Loosen the sling if your fingers tingle, become numb, or become cold. Keep the sling clean. If the sling is not waterproof: ?Do not let it get wet. ?Remove it to shower or bathe. Move your arm as little as possible, but keep your hand moving to prevent swelling. Managing pain, stiffness, and swelling If told, put ice on the painful area. ?If you have a removable sling or immobilizer, remove it as told by your provider. ?Put ice in a plastic bag. ?Place a towel between your skin and the bag. ?Leave the ice on for 20 minutes, 2 3 times a day. ?If your skin turns bright red, remove the ice right away to prevent skin damage. The risk of damage is higher if you cannot feel pain, heat, or cold. ?Move your fingers often to reduce stiffness and swelling. Squeeze a soft ball or a foam pad as much as possible. This helps to keep the shoulder from swelling. It also helps to strengthen the arm. General instructions Take mwkn-ltv-xgezbvy and prescription medicines only as told by your provider. Exercise may help with pain management. Perform exercises if told by your provider. You may be referred to a physical therapist to help in your recovery process. Keep all follow-up visits in order to avoid any type of permanent shoulder disability or chronic pain problems. Contact a health care provider if: Your pain is not relieved with medicines. New pain develops in your arm, hand, or fingers. You loosen your sling and your arm, hand, or fingers remain tingly, numb, swollen, or painful. Get help right away if: Your arm, hand, or fingers turn white or blue. This information is not intended to replace advice given to you by your health care provider. Make sure you discuss any questions you have with your health care provider. Document Revised: 10/17/2022 Document Reviewed: 10/17/2022 [employer] Patient Education 2023 [employer]. 03/31/2024 16:26:33 Shoulder Range of Motion Exercises Shoulder Range of Motion Exercises Shoulder range of motion (ROM) exercises are done to keep the shoulder moving freely or to increasemovement. They are recommended for people who have shoulder pain or stiffness or who are recoveringfrom a shoulder surgery. Ask your health care provider which exercises are safe for you. Do exercises exactly as told by your health care provider and adjust them as directed. It is normal to feel mild stretching, pulling, tightness, or discomfort as you do these exercises. Stop right away if you feel sudden pain or your pain gets worse. Do not begin these exercises until told by your health care provider. Phase 1 exercise When you are able, do this exercise 1 2 times a day for 30 60 seconds in each direction, or as directed by your health care provider. Pendulum exercise To do this exercise while sittin.Sit in a chair or at the edge of your bed with your feet flat on the floor. 2.Let your affected arm hang down in front of you over the edge of the bed or chair. 3.Relax your shoulder, arm, and hand. 4.Rock your body so your arm gently swings in small circles. You can also use your unaffected arm to start the motion. 5.Repeat, changing the direction of the circles, swinging your arm left and right, and swinging your arm forward and back. To do this exercise while standin.Stand next to a sturdy chair or table, and hold on to it with your hand on your unaffected side. 2.Bend forward at the waist. 3.Bend your knees slightly. 4.Relax your shoulder, arm, and hand. 5.While keeping your shoulder relaxed, use body motion to swing your arm in small circles. 6.Repeat, changing the direction of the circles, swinging your arm left and right, and swinging your arm forward and back. 7.Between exercises, stand up tall and take a short break to relax your lower back. Phase 2 exercises Do these exercises 1 2 times a day or as told by your health care provider. Hold each stretch for 30 seconds, and repeat 3 times. Do the exercises with one or both arms as instructed by your health care provider. For these exercises, sit at a table with your hand and arm supported by the table. A chair that slides easily or has wheels can be helpful. External rotation 1.Turn your chair so that your affected side is nearest to the table. 2.Place your forearm on the table to your side. Bend your arm to about a 90- degree angle (right angle) at the elbow, and place your hand palm-down on the table. Your elbow should be about 6 inches (15 cm) away from your side. 3.Keeping your arm on the table, lean your body forward. Abduction 1.Turn your chair so that your affected side is nearest to the table. 2.Place your forearm and hand on the table so that your thumb points toward the ceiling and your arm is straight out to your side. 3.Slide your hand out to the side and away from you. 4.To increase the stretch, you can slide your chair away from the table. Flexion: forward stretch 1.Sit facing the table. Place your hand and elbow on the table in front of you. 2.Slide your hand forward and away from you, using your unaffected arm to do the work. 3.To increase the stretch, you can slide your chair backward. Phase 3 exercises Do these exercises 1 2 times a day or as told by your health care provider. Hold each stretch for 30 seconds, and repeat 3 times. Do the exercises with one or both arms as instructed by your health care provider. You will need a cane, a piece of PVC pipe, or a sturdy wooden dowel for the wand exercises. Cross-body stretch: posterior capsule stretch 1.Lift your arm straight out in front of you. 2.Bend your arm in a 90-degree angle (right angle) at the elbow so your forearm moves across your body. 3.Use your other arm to gently pull the elbow across your body, toward your other shoulder. Wall climbs 1.Stand with your affected arm extended out to the side with your hand resting on a door frame. 2.Slide your hand slowly up the door frame. 3.To increase the stretch, step through the door frame. Keep your body upright and do not lean. Flexion To do this exercise while standin.Hold the wand with both of your hands, palms-down. 2.Lift the wand up and over your head, if able. Lift mostly with your affected arm, and use the other arm to help. 3.Push upward with your other arm to gently increase the stretch. To do this exercise while lying down: 1.Lie on your back with your elbows resting on the floor and the wand in both your hands. Your hands will be palm-down, or pointing toward your feet. 2.Lift your hands toward the ceiling, using your unaffected arm to help if needed. 3.Bring your arms overhead as able, using your unaffected arm to help if needed. Internal rotation 1.Stand while holding the wand behind you with both hands. Your unaffected arm should be extended above your head with the arm of the affected side extended behind you at the level of your waist. Thewand should be pointing straight up and down as you hold it. 2.Slowly pull the wand up behind your back by straightening the elbow of your unaffected arm and bending the elbow of your affected arm. External rotation 1.Lie on your back with your affected upper arm supported on a small pillow or rolled towel. When you first do this exercise, keep your upper arm close to your body. Over time, bring your arm up to [id number] angle (right angle) out to the side. 2.Hold the wand across your stomach and with both hands palm-up. Your elbow on your affected side should be bent at a 90-degree angle. 3.Use your unaffected side to help push your forearm away from you and toward the floor. Keep your elbow on your affected side bent at a 90-degree angle. This information is not intended to replace advice given to you by your health care provider. Make sure you discuss any questions you have with your health care provider. Document Revised: 05/06/2022 Document Reviewed: 05/06/2022 [employer] Patient Education 2023 [employer]. Follow Up Care 03/31/2024 14:06:43 With:Anirudh Armas Address: [address] [place], [place] [address] Business (1) When:04/03/2024 16:12:39 [facility] 01-02-2025 NoteED Patient Education Note Orthopedics Shoulder Pain Many things can cause shoulder pain, including: ??? An injury to the shoulder. ??? Overuse of the shoulder. ??? Arthritis. The source of the pain can be: ??? Inflammation. ??? An injury to the shoulder joint. ??? An injury to a tendon, ligament, or bone. Follow these instructions at home: Pay attention to changes in your symptoms. Let your health care provider know about them. Follow these instructions to relieve your pain. If you have a removable sling: ??? Wear the sling as told by your provider. Remove it only as told by your provider. ??? Check the skin around the sling every day. Tell your provider about any concerns. ??? Loosen the sling if your fingers tingle, become numb, or become cold. ??? Keep the sling clean. ??? If the sling is not waterproof: ? Do not let it get wet. ? Remove it to shower or bathe. ??? Move your arm as little as possible, but keep your hand moving to prevent swelling. Managing pain, stiffness, and swelling ??? If told, put ice on the painful area. ? If you have a removable sling or immobilizer, remove it as told by your provider. ? Put ice in a plastic bag. ? Place a towel between your skin and the bag. ? Leave the ice on for 20 minutes, 2?3 times a day. ? If your skin turns bright red, remove the ice right away to prevent skin damage. The risk of damage is higher if you cannot feel pain, heat, or cold. ? Move your fingers often to reduce stiffness and swelling. ??? Squeeze a soft ball or a foam pad as much as possible. This helps to keep the shoulder from swelling. It also helps to strengthen the arm. General instructions ??? Take ocat-qpp-mmfmewv and prescription medicines only as told by your provider. ??? Exercise may help with pain management. Perform exercises if told by your provider. ??? You may be referred to a physical therapist to help in your recovery process. ??? Keep all follow-up visits in order to avoid any type of permanent shoulder disability or chronic pain problems. Contact a health care provider if: ??? Your pain is not relieved with medicines. ??? New pain develops in your arm, hand, or fingers. ??? You loosen your sling and your arm, hand, or fingers remain tingly, numb, swollen, or painful. Get help right away if: ??? Your arm, hand, or fingers turn white or blue. This information is not intended to replace advice given to you by your health care provider. Make sure you discuss any questions you have with your health care provider. Document Revised: 10/17/2022 Document Reviewed: 10/17/2022 [employer] Patient Education ? 2023 [employer] Shoulder Range of Motion Exercises Shoulder range of motion (ROM) exercises are done to keep the shoulder moving freely or to increasemovement. They are recommended for people who have shoulder pain or stiffness or who are recoveringfrom a shoulder surgery. Ask your health care provider which exercises are safe for you. Do exercises exactly as told by your health care provider and adjust them as directed. It is normal to feel mild stretching, pulling, tightness, or discomfort as you do these exercises. Stop right away if you feel sudden pain or your pain gets worse. Do not begin these exercises until told by your health care provider. Phase 1 exercise When you are able, do this exercise 1?2 times a day for 30?60 seconds in each direction, or as directed by your health care provider. Pendulum exercise To do this exercise while sittin. Sit in a chair or at the edge of your bed with your feet flat on the floor. 2. Let your affected arm hang down in front of you over the edge of the bed or chair. 3. Relax your shoulder, arm, and hand. 4. Rock your body so your arm gently swings in small circles. You can also use your unaffected arm to start the motion. 5. Repeat, changing the direction of the circles, swinging your arm left and right, and swinging your arm forward and back. To do this exercise while standin. Stand next to a sturdy chair or table, and hold on to it with your hand on your unaffected side. 2. Bend forward at the waist. 3. Bend your knees slightly. 4. Relax your shoulder, arm, and hand. 5. While keeping your shoulder relaxed, use body motion to swing your arm in small circles. 6. Repeat, changing the direction of the circles, swinging your arm left and right, and swinging your arm forward and back. 7. Between exercises, stand up tall and take a short break to relax your lower back. Phase 2 exercises Do these exercises 1?2 times a day or as told by your health care provider. Hold each stretch for 30 seconds, and repeat 3 times. Do the exercises with one or both arms as instructed by your health care provider. For these exercises, sit at a table with your hand and arm supported by the table. A chair that slides (more content not included)...[facility]12-17-2024 Evaluation note* Diagnosis Onset Date Resolution Status Admit Date Chronic low back pain with sciatica acuteDecember 2023 10:25amLeft otitis media with spontaneous rupture of eardrumacuteDecember 2023 10:25amCervical radicular painacuteJanuary 2024 1:40pmCervical spine painacuteJanuary 2024 1:40pmComplaint of paresthesiaacuteJanuary 2024 1:40pmPrediabetesacuteMarch 2024 10:32am [facility] Work Phone: 1(143) 459-496412-14-2024 Hospital Discharge instructions Patient Education 03/12/2024 21:50:07 COVID-19 COVID-19 COVID-19 is an infection caused by a virus called SARS-CoV-2. This type of virus is called a coronavirus. People with COVID-19 may: Have little to no symptoms. Have mild to moderate symptoms that affect their lungs and breathing. Get very sick. What are the causes? COVID-19 is caused by a virus. This virus may be in the air as droplets or on surfaces. It can spread from an infected person when they cough, sneeze, speak, sing, or breathe. You may become infectedif: You breathe in the infected droplets in the air. You touch an object that has the virus on it. What increases the risk? You are at risk of getting COVID-19 if you have been around someone with the infection. You may be more likely to get very sick if: You are 65 years old or older. You have certain medical conditions, such as: ?Heart disease. ?Diabetes. ?Chronic respiratory disease. ?Cancer. ?. You are immunocompromised. This means your body cannot fight infections easily. You have a disability or trouble moving, meaning you're immobile. What are the signs or symptoms? People may have different symptoms from COVID-19. The symptoms can also be mild to severe. They often show up in 5 6 days after being infected. But they can take up to 14 days to appear. Common symptoms are: Cough. Feeling tired. New loss of taste or smell. Fever. Less common symptoms are: Sore throat. Headache. Body or muscle aches. Diarrhea. A skin rash or odd-colored fingers or toes. Red or irritated eyes. Sometimes, COVID-19 does not cause symptoms. How is this diagnosed? COVID-19 can be diagnosed with tests done in the lab or at home. Fluid from your nose, mouth, or lungs will be used to check for the virus. How is this treated? Treatment for COVID-19 depends on how sick you are. Mild symptoms can be treated at home with rest, fluids, and ckan-kec-fnsertx medicines. Severe symptoms may be treated in a hospital intensive care unit (ICU). If you have symptoms and are at risk of getting very sick, you may be given a medicine that fights viruses. This medicine is called an antiviral. How is this prevented? To protect yourself from COVID-19: 1.Know your risk factors. 2.Get vaccinated. 3.If your body cannot fight infections easily, talk to your provider about treatment to help prevent COVID-19. 4.Stay at least 1 meter away from others. 5.Wear a well-fitted mask when: You can't stay at a distance from people. You're in a place with poor air flow. 6.Try to be in open spaces with good air flow when in public. 7.Wash your hands often or use an alcohol-based hand associate project manager. 8.Cover your nose and mouth when coughing and sneezing. If you think you have COVID-19 or have been around someone who has it, stay home and be by yourselffor 5 10 days. Where to find more information Centers for Disease Control and Prevention (CDC): cdc.gov World Health Organization (WHO): who.int Get help right away if: You have trouble breathing or get short of breath. You have pain or pressure in your chest. You cannot speak or move any part of your body. You are confused. Your symptoms get worse. These symptoms may be an emergency. Get help right away. Call 911. Do not wait to see if the symptoms will go away. Do not drive yourself to the hospital. This information is not intended to replace advice given to you by your health care provider. Make sure you discuss any questions you have with your health care provider. Document Revised: 03/24/2023 Document Reviewed: 11/28/2022 [employer] Patient Education 2023 [employer] 03/12/2024 21:50:07 Otitis Externa Otitis Externa Otitis externa is an infection of the outer ear canal. The outer ear canal is the area between the outside of the ear and the eardrum. Otitis externa is sometimes called swimmer's ear. What are the causes? Common causes of this condition include: Swimming in dirty water. Moisture in the ear. An injury to the inside of the ear. An object stuck in the ear. A cut or scrape on the outside of the ear or in the ear canal. What increases the risk? You are more likely to develop this condition if you go swimming often. What are the signs or symptoms? The first symptom of this condition is often itching in the ear. Later symptoms of the condition include: Swelling of the ear. Redness in the ear. Ear pain. The pain may get worse when you pull on your ear. Pus coming from the ear. How is this diagnosed? This condition may be diagnosed by examining the ear and testing fluid from the ear for bacteria and funguses. How is this treated? This condition may be treated with: Antibiotic ear drops. These are often given for 10 14 days. Medicines to reduce itching and swelling. Follow these instructions at home: If you were prescribed antibiotic ear drops, use them as told by your health care provider. Do not stop using the antibiotic even if you start to feel better. Take xnft-avz-agbtkct and prescription medicines only as told by your health care provider. Avoid getting water in your ears as told by your health care provider. This may include avoiding swimming or water sports for a few days. Keep all follow-up visits. This is important. How is this prevented? Keep your ears dry. Use the corner of a towel to dry your ears after you swim or bathe. Avoid scratching or putting things in your ear. Doing these things can damage the ear canal or remove the protective wax that lines it, which makes it easier for bacteria and funguses to grow. Avoid swimming in lakes, polluted water, or swimming pools that may not have enough chlorine. Contact a health care provider if: You have a fever. Your ear is still red, swollen, painful, or draining pus after 3 days. Your redness, swelling, or pain gets worse. You have a severe headache. Get help right away if: You have redness, swelling, and pain or tenderness in the area behind your ear. Summary Otitis externa is an infection of the outer ear canal. Common causes include swimming in dirty water, moisture in the ear, or a cut or scrape in the ear. Symptoms include pain, redness, and swelling of the ear canal. If you were prescribed antibiotic ear drops, use them as told by your health care provider. Do not stop using the antibiotic even if you start to feel better. This information is not intended to replace advice given to you by your health care provider. Make sure you discuss any questions you have with your health care provider. Document Revised: 05/29/2021 Document Reviewed: 05/29/2021 [employer] Patient Education 2023 [employer]. Follow Up Care 03/12/2024 21:24:21 With:JUANITO DELEON Address: [address] [place] [phone] Business (1) When:03/15/2024 21:43:48 Comments:Call Dr for diagnosis based follow up [facility] 12-14-2024 NoteED Patient Education Note Infectious Disease COVID-19 COVID-19 is an infection caused by a virus called SARS-CoV-2. This type of virus is called a coronavirus. People with COVID-19 may: ??? Have little to no symptoms. ??? Have mild to moderate symptoms that affect their lungs and breathing. ??? Get very sick. What are the causes? COVID-19 is caused by a virus. This virus may be in the air as droplets or on surfaces. It can spread from an infected person when they cough, sneeze, speak, sing, or breathe. You may become infectedif: ??? You breathe in the infected droplets in the air. ??? You touch an object that has the virus on it. What increases the risk? You are at risk of getting COVID-19 if you have been around someone with the infection. You may be more likely to get very sick if: ??? You are 65 years old or older. ??? You have certain medical conditions, such as: ? Heart disease. ? Diabetes. ? Chronic respiratory disease. ? Cancer. ? . ??? You are immunocompromised. This means your body cannot fight infections easily. ??? You have a disability or trouble moving, meaning you're immobile. What are the signs or symptoms? People may have different symptoms from COVID-19. The symptoms can also be mild to severe. They often show up in 5?6 days after being infected. But they can take up to 14 days to appear. Common symptoms are: ??? Cough. ??? Feeling tired. ??? New loss of taste or smell. ??? Fever. Less common symptoms are: ??? Sore throat. ??? Headache. ??? Body or muscle aches. ??? Diarrhea. ??? A skin rash or odd-colored fingers or toes. ??? Red or irritated eyes. Sometimes, COVID-19 does not cause symptoms. How is this diagnosed? COVID-19 can be diagnosed with tests done in the lab or at home. Fluid from your nose, mouth, or lungs will be used to check for the virus. How is this treated? Treatment for COVID-19 depends on how sick you are. ??? Mild symptoms can be treated at home with rest, fluids, and kwhj-est-cvisixe medicines. ??? Severe symptoms may be treated in a hospital intensive care unit (ICU). If you have symptoms and are at risk of getting very sick, you may be given a medicine that fights viruses. This medicine is called an antiviral. How is this prevented? To protect yourself from COVID-19: 1. Know your risk factors. 2. Get vaccinated. 3. If your body cannot fight infections easily, talk to your provider about treatment to help prevent COVID-19. 4. Stay at least 1 meter away from others. 5. Wear a well-fitted mask when: ??? You can't stay at a distance from people. ??? You're in a place with poor air flow. 6. Try to be in open spaces with good air flow when in public. 7. Wash your hands often or use an alcohol-based hand associate project manager. 8. Cover your nose and mouth when coughing and sneezing. If you think you have COVID-19 or have been around someone who has it, stay home and be by yourselffor 5?10 days. Where to find more information ??? Centers for Disease Control and Prevention (CDC): cdc.gov ??? World Health Organization (WHO): who.int Get help right away if: ??? You have trouble breathing or get short of breath. ??? You have pain or pressure in your chest. ??? You cannot speak or move any part of your body. ??? You are confused. ??? Your symptoms get worse. These symptoms may be an emergency. Get help right away. Call 911. ??? Do not wait to see if the symptoms will go away. ??? Do not drive yourself to the hospital. This information is not intended to replace advice given to you by your health care provider. Make sure you discuss any questions you have with your health care provider. Document Revised: 03/24/2023 Document Reviewed: 11/28/2022 [employer] Patient Education ? 2023 [employer] Otitis Externa Otitis externa is an infection of the outer ear canal. The outer ear canal is the area between the outside of the ear and the eardrum. Otitis externa is sometimes called swimmer's ear. What are the causes? Common causes of this condition include: ??? Swimming in dirty water. ??? Moisture in the ear. ??? An injury to the inside of the ear. ??? An object stuck in the ear. ??? A cut or scrape on the outside of the ear or in the ear canal. What increases the risk? You are more likely to develop this condition if you go swimming often. What are the signs or symptoms? The first symptom of this condition is often itching in the ear. Later symptoms of the condition include: ??? Swelling of the ear. ??? Redness in the ear. ??? Ear pain. The pain may get worse when you pull on your ear. ??? Pus coming from the ear. How is this diagnosed? This condition may be diagnosed by examining the ear and testing fluid from the ear for bacteria and funguses. How is this treated? This condition may be treated with: ??? Antibiotic ear drops. These are (more content not included)...[facility]11-27-2024 Evaluation note* Diagnosis Onset Date Resolution Status Admit Date Depression acuteNovember 2023 2:01pmMorbid (severe) obesity due to excess calories acuteNovember 2023 2:01pmSubluxation of left ankle jointacuteNovember 2023 2:01pmAngina at restnoneactiveNovember 2023 2:01pmChronic low back pain with sciaticaacuteDecember 2023 10:25amLeft otitis media with spontaneous rupture of eardrumacuteDecember 2023 10:25am [facility] Work Phone: 1(572) 598-156211-27-2024 Evaluation note* Diagnosis Onset Date Resolution Status Admit Date Depression acuteNovember 2023 2:01pmMorbid (severe) obesity due to excess calories acuteNovember 2023 2:01pmSubluxation of left ankle jointacuteNovember 2023 2:01pmAngina at restnoneactiveNovember 2023 2:01pmChronic low back pain with sciaticaacuteDecember 2023 10:25amLeft otitis media with spontaneous rupture of eardrumacuteDecember 2023 10:25amCervical radicular painacuteJanuary 2024 1:40pmCervical spine painacuteJanuary 2024 1:40pmComplaint of paresthesiaacuteJanuary 2024 1:40pm [facility] Work Phone: 1(944) 922-889207-27-2024 Hospital Discharge instructions Patient Education 10/23/2023 23:26:38 Ankle Sprain, Ofby-br-Zmer Ankle Sprain An ankle sprain is a stretch or tear in one of the tough tissues (ligaments) that connect the bonesin your ankle. An ankle sprain can happen when the ankle rolls outward (inversion sprain) or inward(eversion sprain). What are the causes? This condition [...] blue. Managing pain, stiffness, and swelling Take swqn-jhu-miwpemn and prescription medicines only as told by [...] contain nicotine or tobacco, such as cigarettes, e- cigarettes, and chewing tobacco. If you need help [...] the tough tissues (ligaments) that connect the bonesin your ankle. This condition is caused by [...] provider. Document Revised: 05/09/2021 Document Reviewed: 05/09/2021 [employer] Patient Education 2022 [employer] Follow Up Care 10/23/2023 22:26:37 With:Call to schedule a follow-up appointment with your orthopedic surgeon for further management of care. Use the diflunisal as needed for pain. Do not use ibuprofen or naproxen with this as they are in the same family class. Return to the ED with any wors Address:Unknown When:10/26/2023 With:[facility] Address: [address] [place] [phone] Business (1) When:Within 3 Day(s) [facility] 07-26-2024 NoteED Patient Education Note Orthopedics Ankle Sprain An ankle sprain is a stretch or tear in one of the tough tissues (ligaments) that connect the bonesin your ankle. An ankle sprain can happen when the ankle rolls outward (inversion sprain) or inward(eversion sprain). What are the causes? This condition [...] Managing pain, stiffness, and swelling ? Take hwzo-tfn-iweclxb and prescription medicines only as told by [...] ankle, raise your ankle above the level ofyour heart, and use an elastic bandage. Also, rest as told by your doctor. ? Keep all follow-up visits as told by your doctor. This is important. This information is not intended to replace advice given to you by your health care provider. Make sure you discuss any questions you have with your health care provider. Document Revised: 05/09/2021 Document Reviewed: 05/09/2021 [employer] Patient Education ? 2022 [employer] 10-23-2023 Evaluation + Plan noteExtracted from:Title:ED NoteAuthor:Yolette HUIZAR, Alyx DonDate:10/23/23 Post-operative complication (T81.9XXA: Unspecified complication of procedure, initial encounter) Orders: ketorolac, 30 mg = 1 mL, Injection, IntraMuscular, Once, Stop date 10/23/23 23:21:00 EDT, STAT, Start date 10/23/23 23:21:00 EDT, 10/23/23 23:21:00 EDT XR Ankle 3+ Views Left XR Foot 3+ Views Left [facility] 05-02-2024 Telephone encounter Note* Telephone Encounter - Lupe Cole - 07/30/2023 10:43 AM EDT Pt called Asked for a work excuse for 07/22. She couldn't get a fax number for [employer]. Sent her [employer] registration info (she could get the letter that way) and also mailed to new [place] address. Advised of 2 week delay [facility]05-02-2024 Miscellaneous Notes* Telephone Encounter - Lupe Cole - 07/30/2023 10:43 AM EDT Pt called Asked for a work excuse for 07/22. She couldn't get a fax number for [employer]. Sent her [employer] registration info (she could get the letter that way) and also mailed to new [place] address. Advised of 2 week delay [facility] encounter[facility]24 NoteHNO ID: [id number] Author: JUDE APONTE PA-C Service: ? Author Type: Physician Emergency Veterinary Technician Type: Progress Notes Filed: 07/23/2023 12:10 Note [...] testing/treatment [facility] Making [facility] of Present illness Narrative* Jude [...] Level: 3 - Low documented in [facility] History of Present illness Narrative* Melissa [...] 7.5 mL; Refill: 0 documented in this encounterWestern [facility] CenterWizdqeptis14-03-[facility]26 Evaluation note* Encounter Date Diagnosis Assessment Notes Treatment Notes Treatment Clinical Notes Jan, Primary hypertension (ICD-10 - I 10) [facility] 11-21-2023 Evaluation note* Encounter Date Diagnosis Assessment Notes Treatment Notes Treatment Clinical Notes Jan, Hypertension (ICD-10 - I10) Jan,Hypercholesterolemia (ICD-10 - E78.00) Jan,MI 45.0-49.9, adult (ICD-10 - Z68.42) Jan,Fatty liver (ICD-10 - K76.0) Jan,epression, unspecified depression type (ICD-10 - F32.9) Jan,ERD (gastroesophageal reflux disease) (ICD-10 - K21.9) Jan,Migraine (ICD-10 - G43.909) Jan,Snores (ICD-10 - R06.83) Jan,Medication monitoring encounter (ICD-10 - Z51.81) [facility] 09-14-2023 Evaluation note* Encounter Date Diagnosis Assessment Notes Treatment Notes Treatment Clinical Notes Nov, Strep pharyngitis (ICD-10 - J02. 0) Strep testing did result as positive during drive up testing. Will prescribe antibiotic. Aware of what symptoms warrant immediate evaluation by emergency department. Take entire course of antibiotic,take with probiotic, please change your toothbrush and gargle with warm salt water as needed. Dyat-hnk-mvyvgty medications suggested. Written off work for 2 days. Nov,cute cough (ICD-10 - R05.1)Due to her symptoms, patient would really like repeat COVID, influenza and strep testing. She does drive to the office for drive up testing. Patient to continue conservative measures and wxca-iap-qnzpctj medications for symptom relief of the cough. Aware of what symptoms would need more timely and closer evaluation. Nov,Other*Progress note was completed with the assistance of voice recognition software for dictation purposes. Please excuse any grammatical errors that were not corrected during review process.I have spent 20 minutes with/on this patient and over 50% of the visit was counseling done by myself, Juanito RIVAS. [facility] Other 09-07-2023 Evaluation note* Encounter Date Diagnosis Assessment Notes Treatment Notes Treatment Clinical Notes Nov, Obesity, unspecified classification, unspecified obesity type, unspecified whether serious comorbidity present (ICD-10 - E66.9) Nov,MI 45.0-49.9, adult (ICD-10 - Z68.42) Nov,OtherSummary of Visit: (A) Presentation of Plate Method discussed (B) Sample meal ideas reviewed (C) exercise recommendations reviewed Patient set the following goals: - patient set personal goal using given handout. [facility] Other 08-28-2023 Evaluation note* Encounter Date Diagnosis Assessment Notes Treatment Notes Treatment Clinical Notes Oct, Hypertension (ICD-10 - I10) Oct,Hypercholesterolemia (ICD-10 - E78.00) Oct,MI 45.0-49.9, adult (ICD-10 - Z68.42) Oct,Fatty liver (ICD-10 - K76.0) Oct,epression, unspecified depression type (ICD-10 - F32.9) Oct,ERD (gastroesophageal reflux disease) (ICD-10 - K21.9) Oct,Migraine (ICD-10 - G43.909) Oct,Snores (ICD-10 - R06.83) [facility] Other 08-28-2023 Evaluation note* Encounter Date Diagnosis Assessment Notes Treatment Notes Treatment Clinical Notes Oct, Primary hypertension (ICD-10 - I 10) [facility] Other 06-19-2023 Evaluation note* Encounter Date Diagnosis Assessment Notes Treatment Notes Treatment Clinical Notes Aug, Anxiety (ICD-10 - F41.9) [facility] Other 05-15-2023 Evaluation note* Encounter Date Diagnosis [...] at length. Declines weight management referral at thistime. Discussed several small meals a day and [...] the gym at work on her workdays. July,nxiety (ICD-10 - F41.9)Discussed her anxiety and depression. I do feel that activity and exercise will help reduce some ofher symptoms. I am agreeable to increasing the medication and putting a referral into health services in [place]. No emergent evaluation by psychiatry is warranted today. July,ruising (ICD-10 - T14.8XXA)Briefly discussed the intermittent bruising. Has none to demonstrate today. Recent CBC was normal. We will continue to monitor closely. No further work-up warranted today. July,iarrhea, unspecified type (ICD-10 - R19.7)Discussed the diarrhea. She does not feel her dietary intake would cause her GI disturbance, pain, b loating or diarrhea. Unfortunately I do feel that it is. Her 24 hr dietary recall is very fried andunhealthy. Please incorporate more fruits and vegetables into the diet. I will not follow-up regarding the EGD results with her. This is something she needs to discuss further with gastroenterology. Patient verbalized understanding. July,Other*Progress note was completed with the assistance of voice recognition software for dictation purposes. Please excuse any grammatical errors that were not corrected during review process. [facility] Encounter Date Diagnosis Assessment Notes Treatment Notes Treatment Clinical Notes Jun, Primary hypertension (ICD-10 - I 10) [facility] Other 04-17-2023 Evaluation note* Encounter Date Diagnosis [...] that were not corrected during review process. [facility] Other 03-27-2023 Evaluation note* Encounter Date Diagnosis Assessment Notes Treatment Notes Treatment Clinical Notes May, Depression, unspecified depressi on type (ICD-10 - F32.A) Discussed the night [...] the change of this medication as well. May,Weight gain (ICD-10 - R63.5)Did discuss trialing GLP-1 in the future for [...] or refer her to weight management through [facility]. Patient verbalizes understanding May,astroesophageal reflux disease without esophagitis (ICD-10 - K21.9) Discussed with patient expectations in regards to EGD. I would like her to continue moving forward with the procedure. Much emotional and motivational support given today. I did encourage her to please refrain from takeout and restaurants with high fatty greasy meals such as [employer] as this is exacerbating her GI issues. May,cute cystitis without hematuria (ICD-10 - N30.00)Reviewed labs in office today. Symptoms resolved without concerns. Nothing further needed from a primary care standpoint today. We will continue to follow closely however for possible underlying nephrolithiasis. May,omplaint of paresthesia (ICD-10 - R20.2)To be resolved without concerns. Patient will monitor closely. Is established with neurology and weare changing the SNRI so I am wondering if this helps the intermittent exacerbations as well. CT ofhead and cervical spine is reviewed in office which is essentially negative. Has completed PT in the past without desire to repeat for cervical spine. May,nxiety (ICD-10 - F41.9)I understand the anxiety attacks are related to the unemployment, needing to move, interpersonal issues with her mother. Unfortunately there is not much I can do in regards to these external stressors. I encouraged her to participate in group therapy, counseling, restoration, exercise, hobby what ever she has personal interested in, to help manage and maintain her mental health and adjunct to the medications. Without suicidal or homicidal ideation, self-harm acts or substance abuse. May,Subconjunctival hemorrhage of left eye (ICD-10 - H11.32)Very small hemorrhage noted to sclera of left [...] however the cause may not be. She iswithout red flags at this time and while I do feel that referral to ER would not be good use of medical resources, I do explain that if her symptoms persist or worsen, she needs to reach out to Dr. Quispe in [place]. Patient verbalizes understanding. He is aware of symptoms would indicate underlying emergent pathology. May,Hospital discharge follow-up (ICD-10 - Z09)Hospital documentation, testing, images, discharge and medications reviewed in preparation for this visit. May,Other*Progress note was completed with the assistance of voice recognition software for dictation purposes. Please excuse any grammatical errors that were not corrected during review process. [facility] Other 03-23-2023 Evaluation note* Encounter Date Diagnosis Assessment Notes Treatment Notes Treatment Clinical Notes May, Epigastric pain (ICD-10 - R10.13 ) Continue Omeprazole for now Arrange for EGD May,RUQ abdominal pain (ICD-10 - R10.11) May,uodenitis (ICD-10 - K29.80) May,bnormal finding on imaging (ICD-10 - R93.89) [facility] Other 02-16-2023 Evaluation note* Encounter Date Diagnosis Assessment Notes Treatment Notes Treatment Clinical Notes Apr, Duodenitis (ICD-10 - K29.80) [facility] Other 02-02-2023 Evaluation note* Encounter Date Diagnosis Assessment Notes Treatment Notes Treatment Clinical Notes Apr, Obesity, morbid, BMI 40.0-49.9 ( ICD-10 - E66.01) Patient has clearly made a [...] plateau. Pt aware that they need to continueto work hard at weight loss or the weight will be regained. Side effects discussed and understood. Pt education printed and discussed. Pt notified of prescribing schedule with 30 day dispensing, no re fills, for up to 12 weeks, with a [...] some of the acid reflux and constipation willlikely improve with the discontinuation of Adipex next month. Patient verbalized understanding Apr,Night sweats (ICD-10 - R61)We will recheck her thyroid level at this [...] call her with results of thyroid labs. Apr,Other*Progress note was completed with the assistance of voice recognition software for dictation purposes. Please excuse any grammatical errors that were not corrected during review process. [facility] Other 01-06-2023 Evaluation note* Encounter Date Diagnosis Assessment Notes Treatment Notes Treatment Clinical Notes Mar, Obesity, morbid, BMI 40.0-49.9 ( ICD-10 - E66.01) [facility] Other 01-05-2023 Evaluation note* Encounter Date Diagnosis Assessment Notes Treatment Notes Treatment Clinical Notes Mar, Obesity, morbid, BMI 40.0-49.9 ( ICD-10 - E66.01) Emotional motivational support given today. I do concur, I do feel that working at [employer] willkeep her active, reduce her weight and increase her energy levels. Patient has clearly made a goodfaith effort for several months on her own to lose weight with little success. Pt to start Adipex daily. Medication is a stimulant. May cause you to be jittery or constipated. Take in the morning, faustino covarrubias also take stool softener daily as needed. [...] sent to due to the cost at [facility] in [place]. Mar,Low back pain, unspecified (ICD-10 - M54.50)Low back pain improving with weight loss and activity. She is still welcome to see chiropractor for adjustment if desired. Nothing further needed from a musculoskeletal standpoint today Mar,rimary hypertension (ICD-10 - I10)Continue to monitor blood pressure closely especially with stimulant on board. It appears that her blood pressure is reduced with activity and weight loss, as anticipated. Doing well and will continue medications as prescribed. Mar,Other*Progress note was completed with the assistance of voice recognition software for dictation purposes. Please excuse any grammatical errors that were not corrected during review process.Of note, I do encourage her to continue to follow through with referral to gastroenterology. If something acute was to occur in the near future however please contact our office for follow-up or report to ER if emergent symptoms present. Patient verbalizes understanding. [facility] Other 12-21-2022 Evaluation note* Encounter Date Diagnosis Assessment Notes Treatment Notes Treatment Clinical Notes Feb, Viral illness (ICD-10 - B34.9) Discussed likely she is suffering from viral illness, specifically RSV as her daughter is also RSV positive.Discussed conservative measures for symptom relief as well as [id number] medications for symptom relief. Does not warrant antibiotic or steroid today. Does not warrant albuterol inhalerbut is aware of symptoms that would warrant [...] more, please call the office for refill. Feb,ther*Progress note was completed with the assistance of [...] emailed via fax machine to her email. [facility] Other 12-14-2022 Evaluation note* Encounter Date Diagnosis Assessment Notes Treatment Notes Treatment Clinical Notes Feb, HLD (hyperlipidemia) (ICD-10 - E 78.5) Feb,Fatty liver (ICD-10 - K76.0) [facility] Other 11-21-2022 Evaluation note* Encounter Date Diagnosis Assessment Notes Treatment Notes Treatment Clinical Notes Jan, Depression, unspecified depressi on type (ICD-10 - F32.A) [facility] Other 11-01-2022 Evaluation note* Encounter Date Diagnosis Assessment Notes Treatment Notes Treatment Clinical Notes Jan, Primary hypertension (ICD-10 - I 10) Continue medication as prescribed. We will refill amlodipine at 5 mg dose. Nothing further needed at this time. I do want her to follow through with sleep study for the evaluation of obstructive sleep apnea.If we can manage the sleep apnea via CPAP, she would not require the antihypertensives likely. Jan,nxiety (ICD-10 - F41.9)Okay to discontinue BuSpar. Patient's mental health is essentially stable at this time. She did no-show with a counseling referral. She does not need to wean off the BuSpar as she has not been takingit regularly.Due to the interest of time, we will need to discuss mental health further in regards to medication management at her next visit. Patient verbalizes understanding Jan,Low back pain, unspecified (ICD-10 - M54.50)Discussed chronic low back pain. Weight loss would absolutely be beneficial. She is agreeable to [facility] s[facility] therapy order to [facility]. I do feel they can help her [...] regarding physical therapy at her next visit. 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 Jan,ight upper quadrant abdominal pain (ICD-10 - R10.11)Patient has continued right upper quadrant pain. Ultrasound of the abdomen was essentially negative. Patient is agreeable to CT of the abdomen to [facility] however still would like to wait onthe referral to gastroenterology. We will follow-up in office regarding the results. Jan,ther*Progress note was completed with the assistance of voice recognition software for dictation purposes. Please excuse any grammatical errors that were not corrected during review process. [facility] Other 10-24-2022 Evaluation note* Encounter Date Diagnosis Assessment Notes Treatment Notes Treatment Clinical Notes Dec, Uncontrolled hypertension (ICD-1 0 - I10) [facility] Other 10-20-2022 Evaluation note* Encounter Date Diagnosis Assessment Notes Treatment Notes Treatment Clinical Notes Dec, Uncontrolled hypertension (ICD-1 0 - I10) [facility] Other 08-23-2022 Evaluation note* Encounter Date Diagnosis Assessment Notes Treatment Notes Treatment Clinical Notes Oct, Low back pain, unspe cified back pain laterality, unspecified chronicity, unspecified whether sciatica present (ICD-10 - M54.50) Oct,Uncontrolled hypertension (ICD-10 - I10) Oct,rimary hypertension (ICD-10 - I10) [facility] Other 08-02-2022 Evaluation note* Encounter Date Diagnosis Assessment Notes Treatment Notes Treatment Clinical Notes Oct, Depression, unspecified depressi on type (ICD-10 - F32.A) Oct,nxiety (ICD-10 - F41.9) Oct,Low back pain, unspecified back pain laterality, unspecified chronicity, unspecified whether sciatica present (ICD-10 - M54.50) [facility] Other 07-18-2022 Evaluation note* Encounter Date Diagnosis Assessment Notes Treatment Notes Treatment Clinical Notes Sep, Uncontrolled hypertension (ICD-1 0 - I10) Increase Amlodipine. Monitor closely at home, discussed normal readings again. Discussed that if sleep and anxiety can be well controlled, likely blood pressure will be reduced. Discussed red flags and when to report to ER. Sep,2Anxiety (ICD-10 - F41.9)Discussed increasing dose to either 15mg BID for anxiety, or 30mg nightly for sleep. Is agreeable to counseling referral to [place] provider. Sep,Low back pain, unspecified back pain laterality, unspecified chronicity, unspecified whether sciatica present (ICD-10 - M54.50)Discussed low back pain and conservative measures. Continue NSAIDs as discussed. Take with food andwatch for GI upset especially on omeprazole. Opts out of imaging and physical therapy today. Take muscle relaxer as directed. Do not drink with alcohol or use with other recreational drugs. May causesevere drowsiness. Do not operate a motor vehicle until you know how this medication will effect you. Shared decision-making process to defer steroids today. DO NOT START INCREASED DOSE OF BUSPAR UNTIL FLEXERIL IS COMPLETED. Sep,bdominal pain, epigastric (ICD-10 - R10.13)Referral to GI would be most beneficial at this point however patient would like to defer at this time. I do not feel that any acute imaging is warranted. Discussed emergent symptoms and when to report to ER. Sep,Fatty liver (ICD-10 - K76.0)Discussed imaging as well as fatty liver diagnosis. Discussed the need for further improvement to dietary intake as well as activity levels.Recheck liver and lipid levels in 6 months. Sep,HLD (hyperlipidemia) (ICD-10 - E78.5)We discussed the importance of a healthy diet.Increase fruits and vegetables 5+ servings/day, fish,turkey, chicken and poultry, whole grain breads, low fat dairy. Limit red meat, butter, fried foods, cheese, and other foods with high saturated fats. Discussed why lipid management is important in preventing risk for heart disease, heart attack, FATTY LIVER and strokes. HANDOUTS PROVIDED IN OFFICETODAY. Sep,ther*Progress note was completed with the assistance of voice recognition software for dictation purposes. Please excuse any grammatical errors that were not corrected during review process. [facility] Other 06-30-2022 Evaluation note* Encounter Date Diagnosis Assessment Notes Treatment Notes Treatment Clinical Notes Aug, Upper abdominal pain (ICD-10 - R 10.10) Likely would benefit from further imaging of the abdomen. Did have cholecystectomy however hepatic dysfunction cannot be ruled out without further evaluation. She does have a personal family history of child and mother with hypercholesterolemia as well as liver dysfunction.She likely may be suffering from fatty liver disease. Other pathology cannot yet be ruled out. Discussed the need for furtherevaluation and follow-up in office to discuss results. Aug,epression, unspecified depression type (ICD-10 - F32.A)Depression and anxiety discussed. Patient would likely benefit from counseling referral. Patient [ACCEPTS/DECLINES] counseling/psychiatry referral today. Aug,Uncontrolled hypertension (ICD-10 - I10)Blood pressure log provided to patient in office. Discussed hypertension and risk for stroke, heartattack, and kidney damage. Avoid alcohol, tobacco, caffeine [...] obstructive sleep apnea and or portal hypertension. Aug,Uncontrolled daytime somnolence (ICD-10 - R40.0)Encourage patient to call sleep lab to see if she can get in sooner if at all possible. Please follow through with this recommendation for evaluation as this may be many of her issues if she does notfact have underlying sleep apnea that is not yet diagnosed or managed. Aug,Gastroesophageal reflux disease without esophagitis (ICD-10 - K21.9) Continue PPI.Discussed underlying pathology that is possible with her current complaints of discomfort and pain. Will evaluate further through lab work and ultrasound. Aug,besity (ICD-10 - E66.9)Handouts provided and discussed regarding boosting your activity daily, sleep hygiene as it relatesto weight loss, cutting down on saturated fats, drinking more water. Aug,nxiety (ICD-10 - F41.9)Discussed Increasing BuSpar at this time for anxiety as well as sleep. Discussed different dosing and timing of the medication for best outcomes. Declines counseling referral today. Provided her withseveral resources in the community. She is without suicidal homicidal ideation today as well as substance abuse and is not concerned with her safety or the safety of others. [facility] Other 06-23-2022 Evaluation note* Encounter Date Diagnosis Assessment Notes Treatment Notes Treatment Clinical Notes Aug, Weight gain (ICD-10 - R63.5) Aug,hronic fatigue (ICD-10 - R53.82) [facility] Other 06-21-2022 Evaluation note* Encounter Date Diagnosis Assessment Notes Treatment Notes Treatment Clinical Notes Aug, Weight gain (ICD-10 - R63.5) Discussed several differential diagnoses regarding weight gain including depression, thyroid dysfunction, uncontrolled/undiagnosed sleep apnea, as well as lifestyle and dietary choices. We will follow-up more in-depth regarding dietary education at the next visit. Aug,hronic fatigue (ICD-10 - R53.82)Differential diagnoses discussed including thyroid dysfunction with family history, undiagnosed/uncontrolled sleep apnea, anxiety and depression exacerbating symptoms. Will discuss sleep hygiene further at the next visit. Needs to contact [facility] or look in her portal to see what her last thyroid labs resulted. Aug,Uncontrolled daytime somnolence (ICD-10 - R40.0)Signs and symptoms of sleep apnea include excessive drowsiness, irritability, daytime headaches, snoring, waking up gasping for air, and/or feeling unrested no matter the amount of time you have slept.Your airway can become blocked when your throat muscles and tongue relax during sleep causing URBANO.Weight loss is the #1 recommendation to treat obstructive sleep apnea. It may reduce the number of times you stop breathing or have slowed breathing. Sleep on your side. It may stop mild apnea. Avoidalcohol and medicines such as sleeping pills and [...] daytime fatigue, daytime headaches, and uncontrolled hypertension. Aug,Uncontrolled hypertension (ICD-10 - I10)Continue medications as prescribed. May be related to underlying sleep apnea that has yet to be diag nosed or controlled. Will monitor closely. Will incorporate more education regarding dietary choices and hypertension at her next visit. Aug,epression, unspecified depression type (ICD-10 - F32.A)Discussed mental health today. Patient is stable and does not require immediate evaluation. Continue medication as prescribed. We will add BuSpar at bedtime for sleep disturbance related to anxiety and depression. Trial 2 weeks of BuSpar and follow-up in office. Discussed medication with patient inoffice today Aug,Fibromyalgia muscle pain (ICD-10 - M79.7)Discussed the possibility of fibromyalgia, differential diagnoses, symptoms, and aggravating factors. We will not do extensive work-up or treatment today however we need to keep in mind this possiblediagnosis in the future while treating other comorbidities. Aug,Gastroesophageal reflux disease without esophagitis (ICD-10 - K21.9) Right upper quadrant pain is not clearly defined at this time. May be originating from gastro system or from a neurologic/fibromyalgia standpoint. Does not require immediate evaluation or imaging as this is a chronic intermittent issue without current exacerbation. Discussed acid reflux symptoms atlength today. This is likely exacerbated by her current anxiety. Discussed PPI for acid reflux management. Discussed short term 8 week course vs. 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 Discussed pros and cons of taking PPI. Pt has tried and failed H2 receptor frederic and dietary changes. Discussed how stress and anxiety can exacerbate symptoms. Aug,leep disturbance (ICD-10 - G47.9)We will discuss sleep hygiene further at her next visit. May likely be related to mental health as well. Discussed anxiety today. Is not ready for counseling at this time. Aug,ther*Progress note was completed with the assistance of voice recognition software for dictation purposes. Please excuse any grammatical errors that were not corrected during review process.I have spent 45 minutes with this patient and over 50% of the visit was counseling done by myself, Juanito RIVAS. [facility] Other 06-06-2022 Evaluation note* Encounter Date Diagnosis Assessment Notes Treatment Notes Treatment Clinical Notes Aug, Well adult exam (ICD-10 - Z00.00 ) We have discussed the necessity of following [...] vaccinations that apply. All questions answered and p atient is sent home pleased, without concerns. Aug, 2Primary hypertension (ICD-10 - I10)Okay to refill at current dosage. Patient stable in regards to hypertension at this time. 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 Her child accompanies her today in office and is actively vomiting. I explained that due to the constructs of time as well as her acutely ill child, we will need to follow-up regarding these issues at a later date. Patient verbalizes understanding.*Progress note was completed with the assistance of voice recognition software for dictation purposes. Please excuse any grammatical errors that were not corrected during review process. [facility] Other Evaluation noteNo InformationNortChan [facility] [place] [employer] Other Evaluation noteNo assessment information available [facility] Work Phone: Evaluation note* Diagnosis Acute diffuse otitis externa of left ear- Primary documented in this encounter [facility]* Diagnosis Onset Date Resolution Status Mastoiditis acuteNauseaacuteOtitis externaacute [facility] Work Phone: Evaluation note* Diagnosis Onset Date Resolution Status Mastoiditis acuteNauseaacuteOtitis externaacuteChronic otitis mediaacute [facility] Work Phone: Evaluation note* Diagnosis Onset Date Resolution Status Mastoiditis acuteNauseaacuteOtitis externaacuteChronic otitis mediaacuteDepressionacute Vitamin D deficiencyacute [facility] Work Phone: Evaluation note* Diagnosis H/O otitis media- Primary Personal history of other disorders of nervous system and sense organs H/O acute otitis externa Personal history of other disorders of nervous system and sense organs [facility] Diagnosis Onset Date Resolution Status Chronic otitis media acuteDepressionacuteVitamin D deficiencyacute [facility] Work Phone: Evaluation note* Diagnosis Onset Date Resolution Status Depression acuteVitamin D deficiencyacuteAnxietyacuteChronic fatigueacuteVitamin D deficiencyacute [facility] Work Phone: Evaluation note* Diagnosis Onset Date Resolution Status Anxiety acuteChronic fatigueacuteVitamin D deficiencyacuteChronic fatigueacuteHTN (hypertension)acutePrediabetesacuteUncontrolled hypertensionacuteAmenorrhea noneactive [facility] Work Phone: Evaluation note* Diagnosis Onset Date Resolution Status Anxiety acuteChronic fatigueacuteVitamin D deficiencyacuteChronic fatigueacuteHTN (hypertension)acutePrediabetesacuteUncontrolled hypertensionacuteWorsening headachesnoneactiveHot flashesnoneactiveAmenorrheanoneactive [facility] Work Phone: Evaluation note* Diagnosis Onset Date Resolution Status Chronic fatigue acuteHTN (hypertension)acutePrediabetesacuteUncontrolled hypertensionacute Worsening headachesnoneactiveHot flashesnoneactiveAmenorrheanoneactive [facility] Work Phone: Evaluation note* Diagnosis Cervical radicular pain- Primary Muscle spasm Spasm of muscle [facility] Diagnosis Acute diffuse otitis externa of left ear- Primary [facility] Diagnosis Chronic migraine with aura without status migrainosus, not intractable (CMS/HCC) - Primary Cervical paraspinal muscle spasm Spasm of muscle Bilateral occipital neuralgia documented in this encounter [facility] Author Johann Moe [facility] July 28, 2022 2:29pmNote Date/TimeMay 2022 2:29[place] [address] Gastroenterology H&P Signed Patient: Lisandra Solis MR#: [id number] : 1990 Acct:[id number] Age/Sex: 32 / F Adm Date: 3 Loc: Room: Type: [facility] Attending Dr: Johann Moe MD Copies to: MD Juanito Olmos APRN~ Date of Service: 07/28/2022 HISTORY & PHYSICAL: Patient's history with special attention to the cardiovascular, pulmonary systems and the current problem was reviewed with the patient immediately prior to the procedure. Present medications and doses reviewed in the EMR. Allergies and pertinent laboratory tests were also re viewedat this time in the EMR. The physical [...] <Electronically signed by Johann Moe MD> 07/28/221428 [facility] Work Phone: History general Narrative - Reported* Type Description Date Medical History Depression Medical HistoryChronic MigrainesMedical HistoryHypertensionMedical History AnxietySurgical HistoryVaginal iefqyfoqmg8910Olqfmgat HistoryLeft knee surgery 2010Surgical HistoryVaginal xshlnbsydg2759Rkvvyseu MwfawpwQrhfthuvgwgbnij6654 Surgical HistoryC-wcgtklp7459Xttckncq Historyuterine azyckptb7386Iyzydcicnizizvn HistorySee Surgical [employer] Other History general Narrative - Reported* Type Description Date Medical History Depression Medical HistoryChronic MigrainesMedical HistoryHypertensionMedical History AnxietyMedical HistoryWeight gainMedical HistoryChronic fatigueMedical History Uncontrolled daytime somnolenceMedical HistoryFibromyalgia muscle painMedical HistoryGastroesophageal reflux disease without esophagitisSurgical History Vaginal pydzdcqyhk5515Qfuctcvu HistoryLeft knee wpnxnhw2231Apsbtzrq History Vaginal aludkqcbkv5297Elogzwfa OzfenvzSdxcaplgyjafjqe5352Hvivvovc History C-ywwzfpk8726Hclocyas Historyuterine sranlhyg9669Iaelhhfnagugdaa HistorySee Surgical [employer] Other HisFINXI general Narrative - Reported* Type Description Date Medical History Depression Medical HistoryChronic MigrainesMedical HistoryHypertensionMedical History AnxietyMedical HistoryWeight gainMedical HistoryChronic fatigueMedical History Uncontrolled daytime somnolenceMedical HistoryFibromyalgia muscle painMedical HistoryGastroesophageal reflux disease without esophagitisMedical HistoryFatty Liver- Abd US urgical HistoryVaginal imxinyzuuh5317Vaqwlpzq HistoryLeft knee tmtlrjc8171Ilscglcw HistoryVaginal kkebdtazfs0587Qloavmxn History Hswqvwjefdpepij8618Adwgekdf HistoryC-tffgung0945Gldploir Historyuterine ablation 2021Hospitalization HistorySee Surgical [employer] Other History general Narrative - Reported* Type Description Date Medical History Depression Medical HistoryChronic MigrainesMedical HistoryHypertensionMedical History AnxietyMedical HistoryWeight gainMedical HistoryChronic fatigueMedical History Uncontrolled daytime somnolenceMedical HistoryFibromyalgia muscle painMedical HistoryGastroesophageal reflux disease without esophagitisMedical HistoryFatty Liver- Abd US 09/2021Medical HistoryHLDSurgical HistoryVaginal ampabzccbz3447 Surgical HistoryLeft knee gbnxwvy0675Rskijfdi HistoryVaginal mzlexhnwiq2269 Surgical DurcttxParkvdzhqhlkckw6530Nmglaumh HistoryC-njkdfnx6473Txfyzctg History uterine lckfmumo1271Snlgnfixantwmtb HistorySee Surgical [employer] Other History general Narrative - Reported* Type Description Date Medical History Depression Medical HistoryChronic MigrainesMedical HistoryHypertensionMedical History AnxietyMedical HistoryWeight gainMedical HistoryChronic fatigueMedical History Uncontrolled daytime somnolenceMedical HistoryFibromyalgia muscle painMedical HistoryGastroesophageal reflux disease without esophagitisMedical HistoryFatty Liver- Abd US 09/2021Medical HistoryHLDMedical HistoryRight upper quadrant pain Medical HistoryChronic low back painMedical HistoryChronic 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 urgical HistoryVaginal bmkqmhaztw3898Vaafaerq HistoryLeft knee ucccixr6861Xsmsrhcw HistoryVaginal ppsdkakhkz1175Lncffhok HistoryCholecystectomy 2013Surgical HistoryC-ryvuyel8459Qmvksuww Historyuterine jttcszji7468 Hospitalization HistorySee Surgical [employer] Other HisFINXI general Narrative - Reported* Type Description Date Medical History Depression Medical HistoryChronic MigrainesMedical HistoryHypertensionMedical History AnxietyMedical HistoryWeight gainMedical HistoryChronic fatigueMedical History Uncontrolled daytime somnolenceMedical HistoryFibromyalgia muscle painMedical HistoryGastroesophageal reflux disease without esophagitisMedical HistoryFatty Liver- Abd US 09/2021Medical HistoryHLDMedical HistoryRight upper quadrant pain Medical HistoryChronic low back painMedical HistoryChronic 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 12/2021Medical HistoryObesitySurgical HistoryVaginal ncqlrilsju2276 Surgical HistoryLeft knee rvdkloa3779Xdsfvkbc HistoryVaginal wpdbtjfnhf1033 Surgical QijesnfNkujngwlsvrgwnm8172Viuzohce HistoryC-gsmhaja8200Rjxpfkpv History Uterine xujrjixf5889Qrdbduzfapuyrgs HistorySee Surgical [employer] Other History general Narrative - Reported* Type Description Date Medical History Depression Medical HistoryChronic MigrainesMedical HistoryHypertensionMedical History AnxietyMedical HistoryWeight gainMedical HistoryChronic fatigueMedical History Uncontrolled daytime somnolenceMedical HistoryFibromyalgia muscle painMedical HistoryGastroesophageal reflux disease without esophagitisMedical HistoryFatty Liver- Abd US 09/2021Medical HistoryHLDMedical HistoryRight upper quadrant pain Medical HistoryChronic low back painMedical HistoryChronic 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 12/2021Medical HistoryObesitySurgical HistoryVaginal sdmkchdryv7950 Surgical HistoryLeft knee mzijvhv6748Tagemvjb HistoryVaginal ztoswielpg1432 Surgical TycznavArndwgakfkfxhbq7186Zsnkvnze HistoryC-tfvjrqw9350Iexwbyhb History Uterine ynukalxc6123Cljbcaph HistoryEGD07/28/2022Hospitalization HistorySee Surgical Hx [facility] [employer] Other History general Narrative - ReportedNortChan [facility] [employer] Other Hospital course Narrative No data available for this section [facility] Hospital Discharge instructions Additional Instructions DISCHARGE [...] problems. -Follow up with PCP. -Office number [phone].[facility] Work Phone: Hospital Discharge instructionsAmbulatory Orders* Referral to ENT Location: None Selected [facility] Work Phone: Hospital Discharge instructions [...] other concern ENT's name and number was provided[facility] Work Phone: Hospital Discharge instructions Additional Instructions Your tests were fine here tonight. There is no evidence of a dangerous problem. We are happy to see you anytime if you have any further problems or concerns. Your blood pressure was a little high tonight. Please be sure that you are taking your medications as prescribed and follow up with your doctor.[facility] Work Phone: Hospital Discharge instructions No data available for this section [facility] Hospital Discharge instructionsAmbulatory Orders* Referral to Neurology Location: None Selected * Referral to Weight Management Location: None Selected [facility] Work Phone: Progress note No data available for this section [facility] reason for referral (narrative)* Reason Counseling in [facility] ue for anxiety NO PSYCHIATRY OR MED MANAGEMENT NEEDED Diagnosis 1 Anxiety (F41.9) [facility] Referring Provider First Name Juanito Referring Provider Last Name [facility] Referring Provider Specialty Nurse Pract itioner Referred Provider Specialty Psychiatry Referral Priority Routine [facility] [employer] Other reason for referral (narrative)* Reason *FU 08/18 [facility] [place] Diagnosis 1 Anxiety (F41.9) Referral Organization [facility] [place] Referring Provider First Name Juanito Referring Provider Last Name [facility] Referring Provider Specialty Nurse Pract itioner Referred Organization [facility] [place] Address [address] [place], [place],[address] Referred Provider Specialty Psychiatry Referral Priority Routine General Notes Fore, Elinor M 023 03:15:45 PM >Received today and referral was fax. They will review and call patient to schedule [employer] Other reason for referral (narrative)No reason for referral information availableUniversity [facility]als [facility] Work Phone: reason for visit NarrativeBlood pressure f/u, Continued right upper quadrant pain, N/S sleep medicine, N/S counseling, Issues with Buspar, Tingling of hands, Low back painNort I[employer] Other reason for visit Narrative* Consultation (Routine) - ClosedSpecialtyDiagnoses / ProceduresReferred By ContactReferred To Contact Neurology Diagnoses Edema, unspecified Pulsatile tinnitus, bilateral Headache, unspecified Procedures [facility] Juanito Deleon NP Phone: tel: fax: Jake Vargas MD [address] [place] [address] Phone: tel: fax: Referral IDStatusReasonStart DateExpiration DateVisits RequestedVisits [id number]/ [facility] Reason for Referral Reason High probability for URBANO, send to [facility] Sleep Med please Diagnosis 1 Uncontrolled daytime somnolence (R40.0) Referral Organization [facility] Referring Provider First Name Juanito Referring Provider Last Name Adrienne Referring Provider Specialty Nurse Criselda myles Referred Provider Specialty Sleep Medici ne Referral Priority Routine Summary Purpose Family History No Family History Records Found Relationship Condition Age at Onset Recorded Date/T josiah Not Specified Diabetes mellitus Unknown Relationship Condition Age at Onset Recorded Date/T josiah Not Specified Diabetes mellitus Unknown grandparentDeceasedUnknownHeart diseaseUnknowngrandparentMalignant neoplasm UnknownDeceasedUnknowngrandparentDiabetes mellitusUnknown Relationship Condition Age at Onset Recorded Date/T josiah mother Diabetes mellitus Unknown grandparentDeceasedUnknownHeart diseaseUnknowngrandparentMalignant neoplasm UnknownDeceasedUnknowngrandparentDiabetes mellitusUnknown Relationship Condition Age at Onset Recorded Date/T josiah mother Diabetes mellitus Unknown HypertensionUnknowngrandparentDeceasedUnknownHeart diseaseUnknowngrandparent Malignant neoplasmUnknownDeceasedUnknowngrandparentDiabetes mellitusUnknown Advance Directives No Advanced Directives Records Found [...] Lt ear pain UC follow up for earsReason for VisitMastoiditis Nausea Otitis externa Chief Complaint Wmn Obesity I10 K76.0 Z51.81 took gummies Unknown Lt ear pain UC follow up for ears left ear pain-recheckReason for VisitMastoiditis Nausea Otitis externa Chief Complaint Unknown Lt ear pain UC follow up for ears left ear pain-recheck ear pain rechecked crying episodes for a few weeksReason for VisitMastoiditis Nausea Otitis externa Chronic otitis media Chief Complaint Unknown Lt ear pain UC follow up for ears left ear pain-recheck ear pain rechecked crying episodes for a few weeks outpatient labs - TSHReason for VisitMastoiditis Nausea Otitis externa Chronic otitis media Depression Vitamin D deficiency Chief Complaint ear pain rechecked crying episodes for a few weeks E66.9 F32.AReason for VisitChronic otitis media Depression Vitamin D deficiency Chief Complaint ear pain rechecked crying episodes for a few weeks E66.9 F32.A 6 week follow upReason for VisitChronic otitis media Depression Vitamin D deficiency Chief Complaint crying episodes for a few weeks E66.9 F32.A 6 week follow up cp,sore throat.headacheReason for VisitDepression Vitamin D deficiency Anxiety Chronic fatigue Vitamin D deficiency Chief Complaint crying episodes for a few weeks E66.9 F32.A 6 week follow up cp,sore throat.headache ER Follow upReason for VisitDepression Vitamin D deficiency Anxiety Chronic fatigue Vitamin D deficiency Chief Complaint 6 week follow up cp,sore throat.headache ER Follow up headaches, body gets hot to the touchReason for VisitAnxiety Chronic fatigue Vitamin D deficiency Chronic fatigue HTN (hypertension) Prediabetes Uncontrolled hypertension Amenorrhea Chief Complaint 6 week follow up cp,sore throat.headache ER Follow up headaches, body gets hot to the touch I59Ntubdg for VisitAnxiety Chronic fatigue Vitamin D deficiency Chronic fatigue HTN (hypertension) Prediabetes Uncontrolled hypertension Worsening headaches Hot flashes Amenorrhea Chief Complaint cp,sore throat.heada [facility] Follow up headaches, body gets hot to the touch I10 8 week follow upReason for VisitChronic fatigue HTN (hypertension) Prediabetes Uncontrolled hypertension Worsening headaches Hot flashes Amenorrhea Chief Complaint Admit Date Chest Pain, L Arm Pain, Headache Novembe r 2023 9:04pm Amb Documentation February 22, 2024 2:39pm ER follow up February 24, 2024 2:01pm Unknown February 29, 2024 9 :18am Amb Documentation March 14, 2024 2:14pm *lab* FT follow up March 15, 2024 10:25am Amb Documentation April 01, 2024 9: 04am ER follow up April 05, 2024 1: 40pm Reason for Visit Admit Date Depression February 24, 2024 2:01pm Morbid (severe) obesity due to excess ca lories February 24, 2024 2:01pm Subluxation of left ankle joint February 24, 2024 2:01pm Angina at rest February 24, 2024 2:01pm Chronic low back pain with sciatica Dece [facility] 2023 10:25am Left otitis media with spontaneous ruptu re of eardrum March 15, 2024 10:25am Chief Complaint Admit Date Chest Pain, L Arm Pain, Headache Novembe r 2023 9:04pm Amb Documentation February 22, 2024 2:39pm ER follow up February 24, 2024 2:01pm Unknown February 29, 2024 9 :18am Amb Documentation March 14, 2024 2:14pm *lab* [facility] follow up March 15, 2024 10:25am Amb Documentation April 01, 2024 9: 04am ER follow up April 05, 2024 1: 40pm M54.12 May 02, 2024 1 1:04am Reason for Visit Admit Date Depression February 24, 2024 2:01pm Morbid (severe) obesity due to excess ca lories February 24, 2024 2:01pm Subluxation of left ankle joint February 24, 2024 2:01pm Angina at rest February 24, 2024 2:01pm Chronic low back pain with sciatica Dece [facility] 2023 10:25am Left otitis media with spontaneous ruptu re of eardrum March 15, 2024 10:25am Cervical radicular pain April 05 1:40pm Cervical spine pain April 05, 2024 1: 40pm Complaint of paresthesia April 05 1:40pm Chief Complaint Admit Date *lab* [facility] follow up March 15, 2024 10:25am Amb Documentation April 01, 2024 9: 04am ER follow up April 05, 2024 1: 40pm M54.12 May 02, 2024 1 1:04am A1C tired and hungry a lot June 13 10:32am Reason for Visit Admit Date Chronic low back pain with sciatica Dece [facility] 2023 10:25am Left otitis media with spontaneous ruptu re of eardrum March 15, 2024 10:25am Cervical radicular pain April 05 1:40pm Cervical spine pain April 05, 2024 1: 40pm Complaint of paresthesia April 05 1:40pm Prediabetes June 13, 2024 10: 32am Chief Complaint Admit Date Amb Documentation April 01, 2024 9: 04am ER follow up April 05, 2024 1: 40pm M54.12 May 02, 2024 1 1:04am A1C tired and hungry a lot June 13 10:32am Reason for Visit Admit Date Cervical radicular pain April 05 1:40pm Cervical spine pain April 05, 2024 1: 40pm Complaint of paresthesia April 05 1:40pm Fluid retention June 13, 2024 10: 32am Morbid (severe) obesity due to excess ca lories June 13, 2024 10:32am Prediabetes June 13, 2024 10: 32am PTSD (post-traumatic stress disorder) [facility] 2024 10:32am Pulsatile tinnitus of both ears June 132024 10:32am Chief Complaint Admit Date M54.12 May 02, 2024 1 1:04am A1C tired and hungry a lot June 13 10:32am Referral Juanito DeleonKatherine July 25, 2024 2:18pm Reason for Visit Admit Date Fluid retention June 13, 2024 10: 32am Morbid (severe) obesity due to excess ca lories June 13, 2024 10:32am Prediabetes June 13, 2024 10: 32am PTSD (post-traumatic stress disorder) [facility] 2024 10:32am Pulsatile tinnitus of both ears June 132024 10:32am Chief Complaint Admit Date WMN f/u September 12, 2024 2:26 pm WMN f/u October 27, 2024 8:33 am Reason for Visit Admit Date Bipolar 2 disorder September 12, 2024 2:26 pm BMI 45.0-49.9, adult September 12, 2024 2:2 6pm Gastroesophageal reflux disease without esophagitis September 12, 2024 2:26pm HLD (hyperlipidemia) September 12, 2024 2:2 6pm HTN (hypertension) September 12, 2024 2:26 pm Prediabetes September 12, 2024 2:26 pm PTSD (post-traumatic stress disorder) [facility] 2024 2:26pm Pulsatile tinnitus of both ears August 2:26pm Vitamin D deficiency September 12, 2024 2:2 6pm Bipolar 2 disorder October 27, 2024 8:33 am BMI 45.0-49.9, adult October 27, 2024 8:3 3am Gastroesophageal reflux disease without esophagitis October 27, 2024 8:33am HLD (hyperlipidemia) October 27, 2024 8:3 3am HTN (hypertension) October 27, 2024 8:33 am Prediabetes October 27, 2024 8:33 am PTSD (post-traumatic stress disorder) Ju ly 2024 8:33am Pulsatile tinnitus of both ears September 8:33am Vitamin D deficiency October 27, 2024 8:3 3am Chief Complaint Admit Date WMN f/u September 12, 2024 2:26 pm WMN f/u October 27, 2024 8:33 am 6 week-WMN f/u December 09, 2024 9:39am Reason for Visit Admit Date Bipolar 2 disorder September 12, 2024 2:26 pm BMI 45.0-49.9, adult September 12, 2024 2:2 6pm Gastroesophageal reflux disease without esophagitis September 12, 2024 2:26pm HLD (hyperlipidemia) September 12, 2024 2:2 6pm HTN (hypertension) September 12, 2024 2:26 pm Prediabetes September 12, 2024 2:26 pm PTSD (post-traumatic stress disorder) Ju ne 2024 2:26pm Pulsatile tinnitus of both ears August 2:26pm Vitamin D deficiency September 12, 2024 2:2 6pm Anxiety October 27, 2024 8:33 am Bipolar [...] 9:39am Vitamin D deficiency December 09 9:39am Chief Complaint Admit Date WMN f/u October [...] 9:39am Vitamin D deficiency December 09 9:39am Additional Source Comments REASON FOR VISIT (unrecogniz ed section and content) ReasonCommentsEar ProblemA few months ago had a really bad ear infection in the left ear, wants to make sure it is ok, has never had a hearing test, no pain or discomfort at this time. Does not think she has hearing loss.ReasonComments LetterReasonCommentsEstablished Patient Follow-UpFrequent ear infections INFORMATION SOURCE (unrecogn ized section and content) DATE CREATED AUTHOR 06/11/2022 [facility] DATE CREATED AUTHOR AUTHOR'S ORGANIZ ATION 11/04/2023 [facility] DATE CREATED AUTHOR AUTHOR'S ORGANIZ ATION 05/08/2024 [facility] DATE CREATED AUTHOR AUTHOR'S ORGANIZ ATION 05/25/2024 [facility] DATE CREATED AUTHOR AUTHOR'S ORGANIZ ATION 07/03/2024 [facility] DATE CREATED AUTHOR AUTHOR'S ORGANIZ ATION 07/24/2024 [facility] DATE CREATED AUTHOR AUTHOR'S ORGANIZ ATION 07/26/2024 [facility] DATE CREATED AUTHOR AUTHOR'S ORGANIZ ATION 08/11/2024 [facility] DATE CREATED AUTHOR AUTHOR'S ORGANIZ ATION 01/26/2025 [facility] DATE CREATED AUTHOR AUTHOR'S ORGANIZ ATION 01/28/2025 [facility] DATE CREATED AUTHOR AUTHOR'S ORGANYANI ATION 02/02/2025 [facility] Care Teams (unrecognized sec tion and content) Team Status: Active Member Role Status Dates Juanito Deleon APRN Primary Care Provider Active Team Status: Inactive Member Role Status Dates Juanito Deleon APRN Primary Care Pr ovider, Attending Provider Active Start: August 26, 2023 End: August 26, 2023 Team Status: Inactive Member Role Status Dates Juanito Deleon APRN Primary Care Provider Active Start: October 03, 2023 End: October 03, 2023ThKrystal Treviño Jr ProviderActiveStart: October 03, 2023 End: October 03, 2023Jeet Tarango DO RESActiveStart: October 03, 2023 End: October 03, 2023 Team Status: Inactive Member Role Status Dates Juanito Deleon APRN Primary Care Pr ovider, Attending Provider Active Start: October 07, 2023 [...] Care Provider Active Start: August 12, 2023 [facility]IO [facility] ProviderActiveStart: August 12, 2023 Team Status: Inactive Member [...] Active Start: February 17, 2023 End: February 17Megan Mcgee ProviderActiveStart: February 17, 2023 End: February 17, 2023 Team Status: Inactive Member Role Status Dates Juanito Deleon APRN Primary Care Provider Active Start: March 27, 2023 End: March 28, 2023Krystal Bolton Jr ProviderActiveStart: March 27, 2023 End: March 28, 2023 [...] Juanito Deleon APRN Primary Care Provider Active Megan Harrison ProviderActive Team Status: Inactive Member Role Status Dates Juanito Deleon APRN Primary Care Provider Active Megan Olmos ProviderActive Team Status: Inactive Member Role Status Dates Juanito Deleon APRN Primary Care Provider Active Krystal Bolton Jr ProviderActive Team Status: Inactive Member Role Status Dates Juanito Deleon APRN Primary Care Provider Active Start: May 07, 2023 End: May 08Giovani Pinto ProviderActiveStart: May 07, 2023 End: May 08, 2023Team MemberRelationshipSpecialtyStart DateEnd Date Unallocated, [place] Provider [address] [place] [address] PCP - [facility] Medicine05/05/23 Team Status: Inactive Member Role Status Dates Juanito Deleon APRN Primary Care Pr ovidritika, Attending Provider Active Start: May 12, 2023 End: May 12, 2023 Team Status: Inactive Member Role Status Dates Juanito Deleon APRN Primary Care Provider Active Start: May 13, 2023 End: May 13Andrey Steward ProviderActiveStart: May 13, 2023 End: May 13, 2023 Team Status: Inactive Member Role Status Dates Juanito Deleon APRN Primary Care Pr ovider, Attending Provider Active Start: June 04, 2023 End: June 04, 2023 Team Status: Inactive Member Role Status Dates Juanito Deleon APRN Primary Care Pr ovider, Attending Provider Active Start: July 14, 2023 End: July 14, 2023Team MemberRelationshipSpecialtyStart DateEnd Date Juanito Deleon CNP [address] [facility] [place] [address] [facility]06/04/23Team MemberRelationshipSpecialtyStart DateEnd Date Juanito Deleon CNP [address] [facility] [place] [address] [facility]06/04/23 Team Status: Inactive Member Role Status Dates Juanito Deleon APRN Primary Care Pr ovider, Attending Provider Active Start: December 02, 2023 End: December 02, 2023 Team Status: Active Member Role Status Dates Mark Mayorga DPM MS Specialist Active Enrique Fatima Care ProviderActive Team Status: Inactive Member Role Status Dates Juanito Deleon APRN Primary Care Provider Active Start: February 19, 2024 End: February 20, 2024Pramod Riley ProviderActiveStart: February 19, 2024 End: February 20, 2024 Team Status: Active Member Role Status Dates Juanito Deleon APRN Primary Care Provider Active Start: February 22, 2024 RICHARD MarcAAtfany ProviderActiveStart: February 22, 2024 Team Status: Inactive Member Role Status Dates Juanito Deleon APRN Primary Care Pr ovider, Attending Provider Active Start: February 24, 2024 End: February 24, 2024 Team Status: Active Member Role Status Dates Juanito Deleon APRN Primary Care Pr ovider, Attending Provider Active Start: February 29, 2024 Team Status: Inactive Member Role Status Dates Juanito Deleon APRN Primary Care Provider Active Start: February 29, 2024 End: February 28rodriguez Mayorga DPM MSAttending ProviderActiveStart: February 29, 2024 End: February 29, 2024 Team Status: Active Member Role Status Dates Juanito Deleon APRN Primary Care Provider Active Start: March 14, 2024 Lindaroma Arzate Tessmeron ProviderActiveStart: March 14, 2024 Team Status: Inactive Member Role Status Dates Juanito Deleon APRN Primary Care Pr ovider, Attending Provider Active Start: March 15, 2024 End: March 15, 2024 Team Status: Active Member Role Status Dates Juanito Deleon APRN Primary Care Provider Active Start: April 01, 2024 Linda Arzate Tessmeron ProviderActiveStart: April 01, 2024 Team Status: Inactive Member Role Status Dates Juanito Deleon APRN Primary Care Pr ovider, Attending Provider Active Start: April 05, 2024 End: April 05, 2024Team MemberRelationshipSpecialtyStart DateEnd Date Unallocated, N[place] Provider, [place] [address] PCP - [facility]05/05/23 Team Status: Inactive Member Role Status Dates Juanito Deleon APRN Primary Care Pr ovider, Attending Provider Active Start: May 02, 2024 End: May 02, 2024Team MemberRelationshipSpecialtyStart DateEnd Date Juanito Deleon CNP [address] [place] [id number] [facility]06/04/23 Team Status: Active Member Role Status Dates Mark Mayorga DPM MS Specialist Active Narendranmelanie Lagunamipathsatish , MDSpecialistActiveEmily Schmitt NP-CSpecialist ActiveKAY Fatimarishekhar Care ProviderActive Team Status: Inactive Member Role Status Dates Juanito Deleon APRN Primary Care Pr ovider, Attending Provider Active Start: June 13, 2024 End: June 13, 2024 Team Status: Active Member Role Status Dates Juanito Deleon APRN Primary Care Provider Active Start: June 27, 2024 Andja Chakrabortyfaina , MDAttending ProviderActiveStart: June 27, 2024 Team Status: Inactive Member Role Status Dates Juanito Deleon APRN Primary Care Provider Active Start: July 25, 2024 End: July 25, 2024Marie Davis ProviderActiveStart: July 25, 2024 End: July 25, 2024Team MemberRelationshipSpecialtyStart DateEnd Date Unallocated, Noms Provider, [address] [place] [address] PCP - [facility]05/05/23Team MemberRelationshipSpecialtyStart DateEnd Date Unallocated, [place] [address] [place] [address] PCP - [facility]05/05/23 Team Status: Active Member Role Status Dates Mark Mayorga , ROSE MS Specialist Active Narendranath Lakshmipathsatish , MDSpecialistActiveChertesfaye Schmitt , GLOBAL CMO-CSpecialist ActiveFelicia Angela Hollins , GLOBAL CMO-CSpecialistActiveDaEnrique Head Care ProviderActive Team Status: Inactive Member Role Status Dates Juanito Deleon APRN Primary Care Provider Active Start: September 12, 2024 End: September 12, 2024Marie Davis ProviderActiveStart: September 12, 2024 End: September 12, 2024 Team Status: Inactive Member Role Status Dates Juanito Deleon APRN Primary Care Provider Active Start: October 27, 2024 End: October 27, 2024Marie Davis ProviderActiveStart: October 27, 2024 End: October 27, 2024 Team Status: Inactive Member Role Status Dates Juanito Deleon APRN Primary Care Provider Active Start: December 09, 2024 End: December 09, 2024Marie Davis ProviderActiveStart: December 09, 2024 End: December 09, 2024 Team Status: Active Member Role/Relationship Status Dates Mark Mayorga , WILLYM MS Specialist Active Narendranath Lakshmipathy , MDSpecialistActiveCheri Janine Schmitt , GLOBAL CMO-CSpecialist ActiveFelicia Angela Hollins , GLOBAL CMO-CSpecialistActiveDana Fito Deleon APRNPrishekhar Care ProviderActive Team Status: Inactive Member Role/Relationship Status Dates Juanito Deleon APRN Primary Care Provider Active Start: October 27, 2024 End: October 27, 2024Cindy Bautista APRNAttenmeron ProviderActiveStart: October 27, 2024 End: October 27, 2024 Team Status: Inactive Member Role/Relationship Status Dates Juanito Deleon APRN Primary Care Provider Active Start: December 09, 2024 End: December 09, 2024Cindy Bautista , APRNAttending ProviderActiveStart: December 09, 2024 End: December 09, 2024 Team Status: Inactive Member Role/Relationship Status Dates Juanito Deleon APRN Primary Care Provider Active Start: January 25, 2025 End: January 25ndra Sandra NP-CAttenmeron ProviderActiveStart: January 25, 2025 End: January 25, 2025 Goals (unrecognized section and content) Goals may be documented in a n alternate section Source Comments (unrecognize d section and content) In the event this informatio n is protected by the Federal Confidentiality of Alcohol and Drug Abuse Patient Records regulations: The Federal rules restrict any use of the information to criminally investigate or prosecute any alcohol or drug abuse patient.[facility] HospitalIn the event this information is protected by the Federal Confidentiality of Alcohol and Drug Abuse Patient Records regulations: The Federal rules restrict any use of the information to criminally investigate or prosecute any alcohol or drug abuse patient.[facility] HospitalIn the event this information is protected by the Federal Confidentiality of Alcohol and Drug Abuse Patient Records regulations: The Federal rules restrict any use of the information to criminally investigate or prosecute any alcohol or drug abuse patient.[facility] FOR RECORDS PERTAINING TO PATIENTS WHO [...] BE BASED ON THE PRIMARY CLINICAL RECORDS. [facility]. provides no warranty or guarantee of the accuracy or completeness of information in this document.
[2025-02-04 21:41] VITALS: BP 131/63; PULSE 61; TEMP 36.9; O2SAT 99; BMI 44.7
--- OUTSIDE RECORDS SUMMARY | 2025-02-04 21:41 | XMS_ITS | Patient Health Record ---
Author Organization [facility] in [place] Address [address] [place] [address] Care Team Providers Care Clutch Inspector Name Role Phone Dillon Lentz DO Primary Care Provider Unavail able Regis Mayorga Unavailable [phone] Kiana Earl Unavailable [phone] Allergies Allergen (clinical drug ingredient) Drug/Non Drug Allergy documented on EMR Reaction Allergy Type Onset Date Status VicodinhivesDrug AllergyActive Results Component Value Reference Range Notes MR ankle LT wo con (Not yet reviewed by provider) Interpretation: Performing Lab: Notes/Report: Source Facility: [place] [address] Magnetic Resonance Report Signed Patient: JOLENE SOLIS MR#: [id number] : 1990 Acct:[id number] Age/Sex: 33 / F ADM Date: 02/03/24 Loc: MRI Attending Dr: Regis Mayorga D.P.M. Ordering Physician: Regis Mayorga D.P.M. Date of Service: 02/03/24 Procedure(s): MR kent LT wo con Accession Number(s): [id number] cc: Tea Donovan INSTRUMENT REPAIR SPECIALIST; Regis Mayorga D.P.M. [place] [id number] Patient Name: JOLENE SOLIS MRN: [id number] date: 1990 Sex: F Assigned Patient Location: MRI Current Patient Location: Accession/Order Number: [id number] Exam Date: 02/03/2024 08:00 Report Date: 02/05/2024 11:36 At the request of: REGIS MAYORGA Procedure: MR ankle LT wo con HISTORY: Left ankle pain for over the past 10 months with swelling. Prior surgery on the left ankle. MR ankle LT wo con: 02/03/2024 8:00 AM EST COMPARISON: Radiographs left ankle 01/20/2024 and MRI left ankle 01/27/2023. TECHNIQUE: Multiplanar, multisequence MRI images of the ankle were obtained without contrast. FINDINGS: LIGAMENTS: The anterior talofibular ligament appears grossly intact. The calcaneofibular ligament now appears thickened and of low signal intensity. The posterior talofibular ligament and distal tibiofibular ligaments appear within normal limits. The superior peroneal retinaculum now appears very thin and ill-defined at its expected attachment to the lateral malleolus and there are susceptibility artifacts in this region from prior surgery. The deltoid ligament complex appears within normal limits. TENDONS: The prior MRI there has been development of severe lateral subluxation of the peroneal tendons from the retromalleolar groove. There again appears to be a probable longitudinal split tear of the inframalleolar portion of the peroneus brevis tendon spanning approximately 1.7 cm in length. There is also new moderate tendinopathy of the inframalleolar portion of the peroneus longus tendon. There has been development of a moderate amount of fluid within the peroneal tendon sheath in the retromalleolar and inframalleolar region. The other tendons of the ankle appear grossly within normal limits. SINUS TARSI AND TARSAL TUNNEL: No space-occupying mass is seen in the tarsal tunnel or the sinus tarsi. BONES AND JOINTS: The bone marrow signal intensity is age appropriate. No unstable osteochondral defect of the tibiotalar joint is identified. There are 2 new soft tissue anchors in the anteroinferior and inferior aspect of the lateral malleolus. The soft tissue anchor within the anteroinferior aspect of the lateral malleolus has backed out approximately 3 mm and there is a small amount of edema of the bone marrow adjacent to this anchor. PLANTAR FASCIA: There is no abnormal thickening or abnormal signal intensity of the plantar fascia and there is no surrounding soft tissue edema to suggest plantar fasciitis. SOFT TISSUES: There is a small amount of soft tissue edema along the lateral aspect of the ankle. MR/MR ankle LT wo con IMPRESSION: 1. Since the prior MRI of 01/27/2023 there has been development of a tear of the superior peroneal retinaculum near its attachment to the lateral malleolus. This is associated with development of severe lateral subluxation of the peroneal tendons from the retromalleolar groove. There again appears to be a probable longitudinal split tear of the inframalleolar portion of the peroneus brevis tendon spanning approximately 1.7 cm in length. There is also new moderate tendinopathy of the inframalleolar portion of the peroneus longus tendon and a moderate tenosynovitis of the peroneal tendon sheath. 2. A soft tissue anchor within the anteroinferior aspect of the lateral malleolus has backed out approximately 3 mm. 3. Probable development of postsurgical scarring in the region of the calcaneofibular ligament. Electronically authenticated by: LUZ ROACH Date: 02/05/2024 11:36 Dictated By: Luz Roach M.D. Signed By: 02/05/24 1138 DD/ 1136 TD/TT: Behavioral Modification Assistant: FL fluoroscopy <1hr NON-READ (Not yet reviewed by provider) Interpretation: Performing Lab: Notes/Report: Source Facility: [place] [address] Fluoroscopy Report Signed Patient: OJLENE SOLIS MR#: [id number] : 1990 Acct:[id number] Age/Sex: 33 / F ADM Date: 02/29/24 Loc: SURGOUT Attending Dr: Regis Mayorga D.P.M. Ordering Physician: Regis Mayorga D.P.M. Date of Service: 02/29/24 Procedure(s): FL fluoroscopy <1hr NON-READ Accession Number(s): [id number] cc: Tea Donovan INSTRUMENT REPAIR SPECIALIST; Regis Mayorga D.P.M. [place] [address] Patient Name: JOLENE SOLIS MRN: [id number] date: 1990 Sex: F Assigned Patient Location: SUR[facility]OUT [facility] Accession/Order Number: [id number] Exam Date: 02/29/2024 08:45 Report Date: 02/29/2024 09:55 At the request of: REGIS MAYORGA Procedure: FL fluoroscopy <1hr NON-READ EXAM: FL fluoroscopy <1hr NON-READ HISTORY: TECHNIQUE: FINDINGS: Please see Operative Report. 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) Diagnosis 2 Peroneal tendinitis, left leg (M76.72) Referral Organization [facility] ([facility]) Referring Provider First Name Regis Referring Provider Last Name Mukesh Referring Provider Speciality Podiatry Referred Provider Specialty Pharmacist Referral Priority Routine Medications Medication SIG (Take, Route, Frequency, Duration) Notes Start Date End Date Status traMADol HCl 50 MG 1 tablet as needed Orally britton ry 6 hours; Duration: 7 days 5ActiveamLODIPine Besylate 5 MG1 tablet Orally Once a dayActive Ibuprofen 800 MG1 tablet with food or milk as needed for pain Orally every 8 hrs; Duration: 30 days4ActiveDULoxetine HCl 40 MG1 capsule Orally Once a dayActiveMetformin & Diet Manage ProdActiveLisinoprilActiveVictoza 18 MG/3MLas directed SubcutaneousActive Social History Tobacco Use: Social History Observation Description Date Details (start date - stop date) Former Smoker NA - 09/17/2020 Tobacco Use/Smoking Question Answer Notes Patient is a former smoker When did you stop smoking?09/17/2020How long has it been since you last smoked? 1-5 years Problems Problem Type SNOMED Code ICD Code Onset Dates Problem Status W/U Status Risk Notes Problem Ankle instability (765832) Other instabil ity, left ankle (M25.372) ActiveconfirmedProblemPeroneal tendinitis (35706982)Peroneal tendinitis, left leg (M76.72)ActiveconfirmedProblemPresence of functional implant, unspecified (Z96.9)Activeconfirmed Vital Signs Heart Rate 87 /min 05/25/2024 Ztcftrknqri39.5 degrees Saamoqrdyd53/26/6606Nqzwqncs21 %05/25/20249623Eiqnxx49 in 05/25/20241561Ytzdyi351 lbs04/14/2024BMI45.3 kg/m204/14/2024 Encounters Encounter Location Date Provider Diagnosis [facility] ([facility]) [address] [place] [address] 04/14/2024 Kiana Earl Other instability, left ankle M25.372 ; Peroneal tendinitis, left leg M76.72 and Strain of muscle(s) and tendon(s) of peroneal muscle group at lower leg level, left leg, initial encounter S86.312A [facility] ([facility]OD[facility]) [address] [place] [address] [address] [place] [address] 05/25/2024 Regis Mayorga Other instability, left ankle M25.372 and Strain of muscle(s) and tendon(s) of peroneal muscle group at lower leg level, left leg, initial encounter S86.312A [facility] ([facility]) [address] [place] [address] [address] [place] [address] 02/05/2024 Regis Mayorga Strain of muscle(s) and tendon(s) of peroneal muscle group at lower leg level, left leg, initial encounter S86.312A ; Other subluxation of left foot, initial encounter S93.332A ; Other instability, left ankle M25.372 and Presence of functional implant, unspecified Z96.9 [facility] [address] [place] [address] 02/29/2024 Regis Mayorga [facility] ([facility]ODI[facility])[address] [place] [place] [address]/10/2024rodriguez MayorgaStrain of muscle(s) and tendon(s) of peroneal muscle group at lower leg level, left leg, sequela S86.312S ; Peroneal tendinitis, left leg M76.72 ; Other instability, left ankle M25.372 and Other subluxation of left foot, initial encounter S93.332[facility] (POD[facility])[address] [place] [place] [address]/[facility], left ankle M25.372 ; Peroneal tendinitis, left leg M76.72 and Strain of muscle(s) and tendon(s) of peroneal muscle group at lower leg level, left leg, initial encounter S86.312[facility] ([facility])[address] [place] [place] [address]/[facility] (PODIATRY)[address] [place] [place] [address]/[facility] (POD[facility])[address] [place] [place] [address]/[facility] (POD[facility])[address] [place] [address] [place] [address]/[facility] (PODIATRY)[address] [place] [place] [address]/[facility] Assessments Encounter Date Diagnosis (ICD Code) Assessment Notes Treatment Notes Treatment Clinical Notes Section Notes 02/05/2024 Strain of muscle(s) and tendon(s) of peroneal muscle group at lower leg level, left leg, initial encounter (ICD-10 - S86.312A) Patient was seen and evaluated. Patient's condition was provided and all questions were answered tosatisfaction. I reviewed x-rays, MRI and physical exam findings. Patient has new findings consistent with retinacular tear and peroneal tendon subluxation with tear of the brevis and tendinopathy of the longus. One of the soft tissue anchors appears to have backed out approximately 3 mm however I am unable to feel this on examPatient would like to undergo reconstructive surgery and I recommended: Left peroneal tendon repair versus transfer, retinacular repair with possible groove deepening, stress examination under intraoperative fluoroscopy with possible lateral ankle stabilization. Possibleremoval of retained orthopedic hardware I reviewed the possible complications which include but not limited to infection, wound healing issue, numbness and tingling, bleeding, blood clot, pain, need for additional surgery. Postoperative course was reviewed and the patient will likely be: Nonweightbearing for 1 to 3 weeksPatient will be: outpatient postoperatively Proposed anesthesia:General & regional Proposed implants: Soft tissue anchors to be available 02/05/2024Other subluxation of left foot, initial encounter (ICD-10 - S93.332A) 03/08/2024Strain of muscle(s) and tendon(s) of peroneal muscle group at lower leg level, left leg, sequela (ICD-10 - S86.312S)Patient follows up 1 week status post peroneal tendon repair with groove deepening, revision lateral ankle stabilization. She is only taking 1-2 pain pills a day and does not have any signs and symptoms of surgical site infection or DVT. I recommended to continue nonweightbearing in a short leg cast which was applied today. She is to keep the cast clean and dry and will follow-up in 1 to 2 weeks for cast and suture removal. No new x-rays are needed.Patient will call the office if she needs refill on pain irsqoukmvu80/10/2024Peroneal tendinitis, left leg (ICD-10 - M76.72)03/21/2024Other instability, left ankle (ICD-10 - M25.372)The patient is 3 weeks status post Left peroneal tendon repair with groove deepening, revision lateral ankle stabilization, DOS: 02/29/2024.Sutures were removed today without incident. No evidence of infection or DVT on examination.She was transition to a cam boot. She may begin protected weightbearing and advance to full weightbearing in the boot as symptoms allow.RICE therapy advised.Ibuprofen pr escribed.Follow-up in 3 weeks, sooner if any issues arise. No x-rays necessary at that time.4Peroneal tendinitis, left leg (ICD-10 - M76.72)04/14/2024 Other instability, left ankle (ICD-10 - M25.372) The patient is 6 weeks status post Left peroneal tendon repair with groove deepening, revision lateral ankle stabilization, DOS: 02/29/2024.No evidence of infection or DVT on examination.She is doing well. She is fully WB in the boot with little discomfort. She may transition to the ASO with normal shoes as symptoms allow. No impact exercise for another 6weeks.RICE therapy advised.Follow-up in 6 weeks, sooner if any issues arise. No x-rays necessary atthat time. 04/14/2024Peroneal tendinitis, left leg (ICD-10 - M76.72)05/25/2024Other instability, left ankle (ICD-10 - M25.372)Is nearly 3 months status post revision of peroneal tendons and lateral ankle stabilization is doing very well. She is scheduled to go back to work next week. I did provide her a prescription for Ultram to take only when needed giving her upcoming transition back to work. I recommended to continue ASO ankle bracing. She will follow-up in 3 months call sooner if edhxzg9005/25/2024Strain of muscle(s) and tendon(s) of peroneal muscle group at lower leg level, left leg, initial encounter (ICD-10 - S86.312A) 04/14/2024Strain of muscle(s) and tendon(s) of peroneal muscle group at lower leg level, left leg, initial encounter (ICD-10 - S86.312A)03/21/2024Strain of muscle(s) and tendon(s) of peroneal muscle group at lower leg level, left leg, initial encounter (ICD-10 - S86.312A)03/08/2024Other instability, left ankle (ICD-10 - M25.372)02/05/2024Other instability, left ankle (ICD-10 - M25.372) 02/05/2024resence of functional implant, unspecified (ICD-10 - Z96.9)03/08/2024 Other subluxation of left foot, initial encounter (ICD-10 - S93.332A)03/08/2024 Veronica Earl PA-c did examine the patients ears noting signs of infection in her left ear. She recommended Augmentin 875 i PO BID which was sent to the patient's pharmacy. Patient was advised to follow-up with her PCP if this does not improve in the next 2 days and does not resolve in the next week Plan Of Treatment Pending Test Test Name Order Date XR Ankle LT (3 views) * (164) 01/20/2024 XR Foot LT (3 views) * 01/20/2024 MRI Ankle LT w/o contrast ([facility] Foot) XR ankle LT min 3V 01/24/2024 MR ankle LT wo con 02/05/2024 FL fluoroscopy <1hr NON-READ 02/29/2024 Insurance Providers Payer Name Payer Address Payer Phone Subscriber Number Group Number Insured Name Patient Relationship to Insured Coverage Start Date Coverage End Date [employer] [place] [employer] [address] [address] [place] [address] [id number] Danni Solis - patient is the insured Medical (General) History Medical History History ICD Code Left ankle pain M25.572 Hypertension I10 Surgical History Surgery Date(Month/Year) Left peroneal tendon repair 02-29-24 Right foot endoscopic plantar fasciotomy 12/22/2019 Left ankle arthroscopy, late ral ankle stabilization with modified Brostrom-Ramirez, peroneal tendon repair 04/16/2023 Hospitalization History Reason Date(Month/Year) See above
--- OUTSIDE RECORDS SUMMARY | 2025-02-04 21:42 | XMS_ITS | Patient Health Record ---
Author Organization [facility] Address [address] [place] [address] Care Team Providers Care Press Operator Helper Name Role Phone Emily Schmitt Primary Care Provider JUANITO DELEON Unavailable Unavailable Rich Cano Unavailable [phone] Alisa Dunham Unavailable [phone] Allergies Allergen (clinical drug ingredient) Drug/Non Drug Allergy documented on EMR Reaction Allergy Type Onset Date Status acetaminophen Acetaminophen (uncoded) Unknown Allergy ActiveBees (uncoded)UnknownAllergyActivehydrocodoneHydrocodone (uncoded)Unknown AllergyActiveVicodinUnknownDrug AllergyActive Reason For Referral Reason referral from PCP fo r med mgnt of depression 03/02 Diagnosis 1 Encounter for screen ing examination for mental health and behavioral disorders (Z13.30) Referral Organization [facility] Referring Provider First Name JUANITO Referring Provider [facility] Referring Provider Speciality [facility] icine Referred Organization [facility] Referred Provider Patty Mondragon Referred Address [address] [place], [place],[address],[place] Referred Provider Specialty Medicatio ns Referral Priority Routine Medications Medication SIG (Take, Route, Frequency, Duration) Notes Start Date End Date Status Cyclobenzaprine HCl 10 MG Tablet TAKE 1 TABLET BY MOUTH AT BEDTIME Oral; Duration: 30 Days ActiveamLODIPine Besylate 10 MG Tablet1 tablet Oral Once a day; Duration: 90 daysActiveNaproxen 500 MG TabletOral; Duration: 7 DaysActivePhentermine HCl 37.5 MG TabletTAKE 1 TABLET BY MOUTH DAILY on empty stomach Oral; Duration: 30 Days ActiveIbuprofen 800 MG TabletTAKE 1 TABLET BY MOUTH WITH FOOD OR MILK EVERY 8 HOURS NEEDED FOR PAIN Oral; Duration: 30 DaysActiveLaMICtal 25 MG Tablet2 tablets Orally daily; Duration: 30 days5ActiveEscitalopram Oxalate 10 MG Tablet1 tablet Oral Once a day; Duration: 30 daysActive Social History Tobacco Use: Social History Observation Description Date Details (start date - stop date) Former Smoker NA - NA Social History GeneralSocial InfoQuestionAnswerNotesDepression Screening (PHQ-9):Little interest or pleasure in doing thingsSeveral daysFeeling down, depressed, or hopelessNot at allTrouble falling or staying asleep, or sleeping too muchNearly every dayFeeling tired or having little energySeveral daysPoor appetite or overeatingNot at allFeeling bad about yourself-or that you are a failure or have let yourself or your family downNot at allTrouble concentrating on things, such as reading the newspaper or watching televisionNot at allMoving or speaking so slowly that other people could have noticed. Or the opposite being so fidgetyor restless that you have been moving around a lot more than usualNot at all Thoughts that you would be better off , or of hurting yourself in some way Not at allTotal Ypypp5PbxdycyltjifeGjab DepressionSubstance abuse/mental health issues of patient/familyPatient -DeniesDrug/Alcohol:Social InfoQuestionAnswer NotesAUDIT-C (Standard)Did you have a drink containing alcohol in the past year? IkXmidms5TapgdvkogoqbtzRhoeuqsjJsxwnml Use:Social InfoQuestionAnswerNotesTobacco Control (Standard)Tobacco use:Former smoker? How long has it been since you last smoked?1-5 years Problems Problem Type SNOMED Code ICD Code Onset Dates Problem Status W/U Status Risk Notes Problem Posttraumatic stress disorder (18700793) PTSD (post-traumatic stress disorder) (F43.10) ActiveconfirmedProblemBipolar 2 disorder (06704963)Bipolar 2 disorder (F31.81) ActiveconfirmedProblemGeneralized anxiety disorder (07970010)Generalized anxiety disorder (F41.1)ActiveconfirmedProblemDyslexia (74193800)Dyslexia (R48.0)Active confirmed Vital Signs Heart Rate 97 /min 04/28/2024 Pavjugrgsip05.6 degrees Auimrdgprq44/30/4403Kssogcor33 %04/28/2024lood pressure qsiisrrmv80 mm Hg04/28/20242463Kgnexv43 in04/28/2024lood pressure ppsaixrk342 mm Hg 04/28/20241734Bxcxjx597.4 lbs04/28/2024BMI46.55 kg/m204/28/2024 Encounters Encounter Location Date Provider Diagnosis [address] [address] 04/12/2024 Emily Slingwine Dyslexia R48.0 ; Bipolar 2 disorder F31.81 ; PTSD (post-traumatic stress disorder) F43.10 and Generalized anxiety disorder F41.[address] [address] 04/28/2024 Emily Slingwine Bipolar 2 disorde r F31.81 ; Generalized anxiety disorder F41.1 ; Dyslexia R48.0 and PTSD (post-traumatic stress disorder) F43.10 Assessments Encounter Date Diagnosis (ICD Code) Assessment Notes Treatment Notes Treatment Clinical Notes Section Notes 04/12/2024 Bipolar 2 disorder (ICD-10 - F31 .81) Lamictal: Patient educated on dosing schedule of medication. Made aware to make prescriber aware ofany unexplainable rash or flu-like symptoms. If outside of office hours patient should report to the ER. Made aware to contact the office with any questions or concerns. Provided crisis hotline number. Patient states has good support system. Will call office or report to the ER with suicidal ideations. Educated on antidepressant. Made aware of Black Box Warning that it can increase suicidal thoughts,especially in minors. If this happens go to the ER. Make the office aware or go to the ER, if you experience seizures or an increase in activity and irritability. Made aware to not abruptly stop medication. Medication can cause headache and nausea. . Denies suicidal or homicidal ideation or plan. No morbid thoughts. Interpersonal issues discussed. Support provided Insight oriented/ Behavior modifying/ Supportive therapy . 04/12/2024Dyslexia (ICD-10 - R48.0)04/28/2024ipolar 2 disorder (ICD-10 - F31.81) Patient will continue current treatment plan. Patient verbally acknowledges understanding instructions including medication education and has no further questions comments or concerns at this time. . . Recommended treatment for Bipolar disorder includes FDA approved and OFF label medications: second generation antipsychotics and mood stabilizers. Discussed life threatening side effect of Lamotrigine. Pt is to monitor for new skin rashes or sensation of a sunburn or itchiness or redness, mouth sores or sores in mucus membranes, and call provider immediately and or go to ER, and stop the medication. Second generation antipsychotic medications can cause headache, drowsiness, agitation, dizziness, nausea, or extrapyramidal symptoms such as tremors, muscle spasms, slowness of movement or jerkingof muscles. . Stable . The patient verbalizes understanding with all questions answered thoroughly and is in agreement with treatment plan. . Continue current treatment. Call for problems . GOALS: . Maintain medication regimen . _Improve mood stability . _Improve anxiety control . _Improve social and interpersonal functioning . Patient/Guardian will call sooner if symptoms worsen. Patient understands to go to ER if needed if symptoms become severe. . Crisis Intervention plan was discussed and agreed upon. Patient/Guardian will call 911 in case of emergency. Emergency contact information was provided to the patient/guardian. . Pharmacological management: . Alternative medication plans were discussed with the patient/guardian. All relevant side effects and potential adverse effects were discussed with the patient/guardian. Standard cautions and potential benefits were discussed. Patient/Guardian consented to the start/continuation of the treatment. 04/28/2024Generalized anxiety disorder (ICD-10 - F41.1)04/12/2024PTSD (post- traumatic stress disorder) (ICD-10 - F43.10) prazosin: Encouraged to call office or report to the if the patient experiences dizziness or lightheadedness Patient educated about the importance of adequate sleep to your mental health. The bedroom should be kept dark to promote restful sleep. The patient should not use their phone or watch TV while in bed, these behaviors can be stimulating and keep the patient awake. . Informed consent obtained: YES, we discussed the diagnosis/diagnoses, the treatment options, treatment(s) recommended vs. no treatment. We discussed risks and benefits of treatment options, treatmentrecommendations vs. no treatment. . . Pt is to continue current treatment plan Has good tolerability and compliance with medication Call for problems All questions and concerns discussed . 04/12/2024Generalized anxiety disorder (ICD-10 - F41.1)04/28/2024Dyslexia (ICD- 10 - R48.0)04/28/2024PTSD (post-traumatic stress disorder) (ICD-10 - F43.10) prazosin: Encouraged to call office or report to the if the patient experiences dizziness or lightheadedness Patient educated about the importance of adequate sleep to your mental health. The bedroom should be kept dark to promote restful sleep. The patient should not use their phone or watch TV while in bed, these behaviors can be stimulating and keep the patient awake. . Informed consent obtained: YES, we discussed the diagnosis/diagnoses, the treatment options, treatment(s) recommended vs. no treatment. We discussed risks and benefits of treatment options, treatmentrecommendations vs. no treatment. . . Pt is to continue current treatment plan Has good tolerability and compliance with medication Call for problems All questions and concerns discussed . Plan Of Treatment No Information Insurance Providers Payer Name Payer Address Payer Phone Subscriber Number Group Number Insured Name Patient Relationship to Insured Coverage Start Date Coverage End Date [facility] [address] [place] [address] [id number] Renard VALENTINO - patient is the dsbrfue6903/30/2023 [facility] [address] [place] [id number], TABATHASelf - patient is the nforhkf4003/30/2023zDENTAL DQ [place]-termed 04/29/22[address] [place] [id number], TABATHASelf - patient is the [id number] MEDICAID [facility] after [place]- termed 04/29/22[address] [place] [id number] CHICHO, TABATHASelf - patient is the [id number] BCBS Medicaid-termed 04/29/22[address] [place] [phone] [id number] VALENTINOf - patient is the [id number] zMedicaid [facility] after [place] BCBS-termed 04/29/22[address] [place] [address] [id number], TABATHASelf - patient is the insured nthem Medical [place] MedicaidPO [address] [place] [id number], TABATHASelf - patient is the rausfuj6004/30/2022Wrap [facility] [place] BCBSP[address] [place] [address] [phone], TABATHASelf - patient is the insured 3Dental [place] DQ Terminated 03/29/24[address] [place] [id number], TABATHASelf - patient is the mxfssnm9304/30/2022ental Wrap [employer] [place] BCBS Termed [address] [place] [id number], TABATHASelf - patient is the asfpdjp6304/30/2022 Medical (General) History Medical History History ICD Code depression HypertensionSurgical History Surgery Date(Month/Year) tendonitis x2 R ankle 03/2024 section 2014 cholecystectomy 2012 ablasion 2021 tubal ligation 2016 Hospitalization History Reason Date(Month/Year) see surgery above
--- OUTSIDE RECORDS SUMMARY | 2025-02-04 21:42 | XMS_ITS | Clinical Summary ---
Author Organization [facility] Address [address] [place] [address] Care Team Providers Care Clinical Account Executive Name Role Phone Unallocated, Noms Provider MD Primary Care Provi madyson Allergies Active AllergyReactionsCriticalityNoted WkbbZitjtzfxPmvcjawnj57/08/2024 Other Reaction(s): Nightmares KphafevuzyEkeen94/08/9080Irybkhflqof26/09/2024 Other Reaction(s): Itching Hydrocodone-LytreqgvnnbjlRghgtutVejc62/13/2016 Other Reaction(s): hives Ywzhrmdqmeuu58/09/2024 Other Reaction(s): Unknown Medications MedicationSigDispense QuantityRefillsLast FilledStart DateEnd DateStatus amLODIPine (Norvasc) 5 MG tablet 1 (one) time each day at the same timeActive DULoxetine (Cymbalta) [address] capsule 1 capsule 1 (one) time each day at the same timeActive lisinopril-hydroCHLOROthiazide 20-12.5 MG tablet TAKE 2 TABLETS BY MOUTH EVERY DAY FOR 90 DAYS02/21/2023ctive omeprazole (PriLOSEC) [address] capsule TAKE 1 CAPSULE BY MOUTH EVERY DAY 30 MINUTES BEFORE MORNING MEAL FOR 90 DAYS 05/15/2022ctive Aspirin Low Dose 81 MG EC tablet Take 81 mg by mouth in the morning and 81 mg before bedtime.04/16/2023ctive ibuprofen 800 MG tablet every 8 (eight) hours03/21/2024ctive Naprosyn 500 MG tablet Take 500 mg by mouth03/31/2024tive cyclobenzaprine (Flexeril) 10 MG tablet Indications:Muscle spasmTake 1 tablet (10 mg) by mouth 3 (three) times a day as needed for muscle spasms for up to 7 days 21 tablet 04/01/2024tive predniSONE (Deltasone) 10 MG tablet Indications:Cervical radicular pain1 po tid with food x 5 days 15 tablet 04/01/2024tive nortriptyline (Pamelor) 25 MG capsule Indications:Chronic migraine with aura without status migrainosus, not intractableTake 1 capsule (25 mg) by mouth at bedtime 60 capsule ctive Active Problems ProblemNoted DateDiagnosed DateAbnormal finding on wutzdef3604/01/2024bsent adqmyg8404/01/2024ute brzutszfnyz66/03/6505Jxxhgyq85/03/2025hronic fatigue 04/01/2024omplaint of qwbiarqfgwp96/03/2025urrent zccddh7304/01/2024 Overview (04/01/2024): Added secondary to documentation in Social History. Decreased exercise jkmatniwh22/03/9940Opcrimhwxg38/03/2025Fatty liver04/01/2024 Gastroesophageal reflux disease without apzoklrafeu58/03/2025Depression with ozkkvjv3804/01/2024History of tbhhdnoiftl71/03/2025HLD (hyperlipidemia)04/01/2024 HTN (hypertension)04/01/2024hronic low back pain with /03/2025Low self qzcfss1704/01/2024Menorrhagia with irregular cycle04/01/2024Moderate episode of recurrent major depressive hwgeievd26/03/9976Znwvre16/03/2025Neuropathy of hand04/01/2024Obesity (BMI 30-39.9)04/01/2024Other igzyfeaj41/03/2025Otitis jncmbcc1604/01/2024PCB (post coital bleeding)04/01/2024Uncontrolled daytime uyhdiuzupb14/03/2025Vitamin D xqnipwfiro64/03/2025Otorrhagia of right ear 05/29/20214894Torkddhljsxlkza77/01/2020Muscle spasm09/28/2019Plantar fasciitis of right foot07/19/2019Allergic lltqlurb09/05/2020Encounter for post Essure sterilization check07/11/2015H/O mlsoyuf1207/11/2015SVD (spontaneous vaginal delivery) ([facility])07/11/2015Arthralgia of temporomandibular joint 06/19/2008 Family History Medical HistoryRelationNameCommentsNo Known ProblemsBrotherNo Known Problems FatherBreast cancerMaternal GrandmotherDiabetesMaternal Grandmother HyperlipidemiaMaternal GrandmotherDiabetes type IIMotherHypertensionMotherlumbar stenosisMotherBreast cancerPaternal GrandmotherAnxiety disorderSisterDepression RmckxpKupjqcxxSnhcVqjwlhYtuadfljVekbnsqAijecn5EybfkklkXkhrsTatxdlRqhhrEufhtrts GrandmotherAliveMotherAlivePaternal GrandmotherSisterAliveSonAlive Social History Tobacco UseTypesPacks/DayYears UsedDateSmoking Tobacco: FormerCigarettes0.515 Started: 2005Smokeless Tobacco: Never Tobacco Cessation:Counseling Given: Not Answered Alcohol UseStandard Drinks/WeekCommentsYes0 (1 standard drink = 0.6 oz pure alcohol)caffeine: 2-3 cups per day. Alcohol 1-2 times a monthCommentsNo Sex and Gender InformationValueDate RecordedSex Assigned at BirthNot on file Legal NfuUwalgu60/15/2023 7:06 PM EDTGender IdentityNot on fileSexual OrientationNot on file Last Filed Vital Signs Vital SignReadingTime TakenCommentsBlood Dnfcfqpc693/7405 1:07 PM EDT Vxrss532504/01/2024 6:09 PM DFLPglfuikjzpb46.7 ??C (98.1 ??F)04/01/2024 6:09 PM ESTRespiratory Rate--Oxygen Pvuccpywqj45%04/01/2024 6:09 PM ESTInhaled Oxygen Concentration--Gwmadg828 kg (237 lb 6.4 oz)08/10/2024 1:07 PM IQYBpmqly653.4 cm (5')08/10/2024 1:07 PM EDTBody Mass Index46.36008/10/2024 1:07 PM EDT Plan of Treatment Health MaintenanceDue DateLast DoneCommentsCervical Cancer Ffiicdhyu00/29/2024 HPV/Pmrvkl3611/26/2023ap SmearCOVID-19 Vaccine ( season)/05/2020, 04/06/2020, 03/19/2020Influenza Vaccine (#1) /, 05/21/2010, 01/24/2009Pneumococcal Vaccine: Pediatrics (0 to 5 Years) and At-Risk Patients (6 to 64 Years)Aged OutNo longer eligible based on patient's age to complete this topic Procedures Procedure NamePriorityDate/TimeAssociated DiagnosisCommentsPAP SMEARRoutine 11/25/2018 12:00 AM EDTfrom Last 3 Months or Most Recently Relevant to Health Maintenance Results * Pap Smear (11/25/2018 12:00 AM EDT)Specimen (Source)Anatomical Location / LateralityCollection Method / VolumeCollection TimeReceived TimeSwabCervical swab / Unknown Narrative Authorizing ProviderResult TypeResult StatusCorey Lesia DOLAB CYTOLOGY ORDERABLESFinal ResultPerforming OrganizationAddressCity/State/ZIP CodePhone Number EXTERNAL LAB from Last 3 Months or Most Recently Relevant to Health Maintenance Insurance Care Teams Team MemberRelationshipSpecialtyStart DateEnd Date Unallocated, Noms MD [address] [address] PCP - GeneralFamily Medicine05/05/23
--- NOTE | 2025-02-04 21:59 | XR_ITS ---
[facility] [place] [id number] Patient Name: JOLENE VALENTINO MRN: [id number] date: 1990 Sex: F Assigned Patient Location: ED.MAIN Current Patient Location: Accession/Order Number: [id number] Exam Date: 02/04/2025 22:15 Report Date: 02/05/2025 08:31 At the request of: BARRINGTON KEARNS MD Procedure: XR elbow RT min 3V XR elbow RT min 3V 02/04/2025 10:21 PM SIGNS AND SYMPTOMS: ^pain PROTOCOL: 3 views of the right elbow COMPARISON: None FINDINGS: The joint spaces are preserved. No fracture or dislocation. No joint effusion. No soft tissue swelling. XR/XR elbow RT min 3V IMPRESSION: No acute bony injury. No significant degenerative change. Impression dictated by: Patrice Valiente M.D. 02/05/2025 8:31 AM Dictation Location: [place] [address] Electronically authenticated by: [id number] Y Date: 02/05/2025 08:31
--- NOTE | 2025-02-04 22:04 | ED.EXTPRO1 ---
HPI - Extremity Problem General Chief complaint: Extremity Problem, Nontraumatic Stated complaint: Extremity Injury, Upper Time Seen by Provider: 02/04/25 21:44 Source: patient Mode of arrival: walk-in Limitations: no limitations History of Present Illness HPI Narrative: presents complaining of pain of her right elbow. Points to inferior right biceps tendon area. States she has to lift heavy boxes at work. Occ her hand tingles. No hand weakness. No specific injury Related Data Home Medications ?Medication ?Instructions ?Recorded ?Confirmed lisinopril 20 2 tab PO DAILY 04/07/23 02/04/25 mg-hydrochlorothiazide 12.5 mg tablet cyclobenzaprine 10 mg tablet mg 05/17/24 amlodipine 10 mg tablet 10 mg PO DAILY 05/19/24 02/04/25 escitalopram oxalate 10 mg tablet 10 mg PO DAILY 05/19/24 06/27/24 (Lexapro) lamotrigine 25 mg tablet (Lamictal) 50 mg PO DAILY 05/19/24 06/27/24 prazosin 2 mg capsule 2 mg PO DAILY 05/19/24 06/27/24 phentermine 37.5 mg capsule 37.5 mg PO DAILY 06/27/24 06/27/24 Previous Rx's ?Medication ?Instructions ?Recorded cyclobenzaprine 10 mg tablet 10 mg PO HS PRN muscle spasm #30 07/11/24 tabs diclofenac sodium 75 mg 75 mg PO BID PRN pain #60 tabs 07/21/24 tablet,delayed release Allergies Allergy/AdvReac Type Severity Reaction Status Date / Time hydrocodone (From Vicodin) Allergy Severe Hives Verified 02/04/25 21:40 Review of Systems ROS Status of ROS 10 or more systems reviewed and unremarkable except as noted in history and below [facility] Medical History (Updated 02/04/25 @ 22:30 by Tommy Gallego MD) Presence of functional implant ?Z96.9 - Presence of functional implant, unspecified (ICD-10) Subluxation of left foot ?S93.302A - Unspecified subluxation of left foot, initial encounter (ICD-10) Strain of muscle(s) and tendon(s) of peroneal muscle group at lower leg level, left leg, initial encounter ?S86.312A - Strain of muscle(s) and tendon(s) of peroneal muscle group at lower leg level, left leg, initial encounter (ICD-10) PTSD (post-traumatic stress disorder) ?F43.10 - Post-traumatic stress disorder, unspecified (ICD-10) Panic attacks ?F41.0 - Panic disorder [episodic paroxysmal anxiety] (ICD-10) Peroneal tendinitis ?M76.70 - Peroneal tendinitis, unspecified leg (ICD-10) Strain of left peroneal muscle or tendon ?S86.312A - Strain of muscle(s) and tendon(s) of peroneal muscle group at lower leg level, left leg, initial encounter (ICD-10) Left ankle instability ?M25.372 - Other instability, left ankle (ICD-10) Heartburn ?R12 - Heartburn (ICD-10) Migraine ?G43.909 - Migraine, unspecified, not intractable, without status migrainosus (ICD-10) Anxiety ?F41.9 - Anxiety disorder, unspecified (ICD-10) Depression ?F32.A - Depression, unspecified (ICD-10) PONV (postoperative nausea and vomiting) ?R11.2 - Nausea with vomiting, unspecified (ICD-10) ?Z98.890 - Other specified postprocedural states (ICD-10) Menorrhagia ?N92.0 - Excessive and frequent menstruation with regular cycle (ICD-10) Dysmenorrhea ?N94.6 - Dysmenorrhea, unspecified (ICD-10) Abnormal uterine bleeding (AUB) ?N93.9 - Abnormal uterine and vaginal bleeding, unspecified (ICD-10) GERD (gastroesophageal reflux disease) ?K21.9 - Gastro-esophageal reflux disease without esophagitis (ICD-10) Fibromyalgia ?M79.7 - Fibromyalgia (ICD-10) Kidney stones (~2012) ?N20.0 - Calculus of kidney (ICD-10) Anemia (~2014) ?D64.9 - Anemia, unspecified (ICD-10) Leg pain ?M79.606 - Pain in leg, unspecified (ICD-10) Pain, dental ?K08.89 - Other specified disorders of teeth and supporting structures (ICD-10) Flank pain ?R10.9 - Unspecified abdominal pain (ICD-10) Headache ?R51.9 - Headache, unspecified (ICD-10) Plantar fasciitis ?M72.2 - Plantar fascial fibromatosis (ICD-10) Equinus contracture of ankle ?M24.573 - Contracture, unspecified ankle (ICD-10) Foot pain ?M79.673 - Pain in unspecified foot (ICD-10) Posterior tibial tendon dysfunction (PTTD) of right lower extremity ?M76.821 - Posterior tibial tendinitis, right leg (ICD-10) Hypertension ?I10 - Essential (primary) hypertension (ICD-10) Superficial laceration of thumb (10/22/20) ?S61.019A - Laceration without foreign body of unspecified thumb without damage to nail, initial encounter (ICD-10) Surgical History History of ankle surgery (04/16/23) ?Z98.890 - Other specified postprocedural states (ICD-10) H/O arthroscopy of knee ?Z98.890 - Other specified postprocedural states (ICD-10) H/O section (~2014) ?Z98.891 - History of uterine scar from previous surgery (ICD-10) History of cholecystectomy (~2012) ?Z90.49 - Acquired absence of other specified parts of digestive tract (ICD-10) H/O tubal ligation ?Z98.51 - Tubal ligation status (ICD-10) H/O foot surgery (12/22/19) ?Z98.890 - Other specified postprocedural states (ICD-10) History of endometrial ablation (01/04/21) ?Z98.890 - Other specified postprocedural states (ICD-10) Family History Other Family history of cancer Family history of diabetes mellitus Family history of hypertension Family history of stroke Social History Within the past year, how often did you have a drink containing alcohol: monthly or less Smoking status: Former smoker Non-prescribed substance use: denies use 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 Highest level of school completed/degree received: high school graduate Little interest or pleasure in doing things: not at all Feeling down, depressed, or hopeless: not at all Exam Constitutional Vital Signs, click to edit/add: Last Vital Signs Temp 98.4 F 02/04/25 21:41 Pulse 61 02/04/25 21:41 Resp 17 02/04/25 21:41 BP 131/63 02/04/25 21:41 Pulse Ox 99 02/04/25 21:41 O2 Del Method Room Air 02/04/25 21:41 Common normals: no apparent distress, average body habitus, oriented x3, no limitations, healthy appearing, alert and well nourished [facility] Common normals: normocephalic and head/scalp atraumatic Eye Common normals: EOMs intact bilaterally and conjunctivae normal Respiratory Common normals: normal respiratory effort, no retractions, no use of accessory muscles and clear to auscultation bilaterally Cardio Common normals: regular rate, regular rhythm, S1 normal heart sound and S2 normal heart sound Extremity Other: mild tenderness inferior right biceps tendon at antecubital. No obvious swelling . FROM of the elbow Neuro Common normals: oriented x3, CN's II-XII intact bilaterally, moves all extremities and no focal motor deficits Psych Appearance: grossly normal Course Vital Signs Vital signs: Vital Signs Temperature 98.4 F 02/04/25 21:41 Pulse Rate 61 02/04/25 21:41 Respiratory Rate 17 02/04/25 21:41 Blood Pressure 131/63 02/04/25 21:41 Pulse Oximetry 99 02/04/25 21:41 Oxygen Delivery Method Room Air 02/04/25 21:41 Temperature 98.4 F 02/04/25 21:41 Pulse Rate 61 02/04/25 21:41 Respiratory Rate 17 02/04/25 21:41 Blood Pressure 131/63 02/04/25 21:41 Pulse Oximetry 99 02/04/25 21:41 Oxygen Delivery Method Room Air 02/04/25 21:41 MDM - Extremity (Nontraumatic) MDM Narrative Medical decision making narrative: presents with right arm pain. Tenderness of right inferior biceps tendon. Xray neg. Job requires heavy lifting. Discharged with working diagnosis of strain right arm/biceps. advised work restrictions if available at her job and to follow up with her doctor for recheck Discharge Plan Discharge Chief Complaint: Extremity Problem, Nontraumatic Clinical Impression: Strain of right biceps Patient Disposition: Home, Self-Care Prescriptions / Home Meds: No Action lisinopril-hydrochlorothiazide 20-12.5 mg tablet 2 tab PO DAILY cyclobenzaprine 10 mg tablet amlodipine 10 mg tablet 10 mg PO DAILY escitalopram oxalate [Lexapro] 10 mg tablet 10 mg PO DAILY prazosin 2 mg capsule 2 mg PO DAILY lamotrigine [Lamictal] 25 mg tablet 50 mg PO DAILY cyclobenzaprine 10 mg tablet 10 mg PO HS PRN (Reason: muscle spasm) Qty: 30 2RF phentermine 37.5 mg capsule 37.5 mg PO DAILY Rx Instructions: must administer 30 minutes before or 1-2 hours after breakfast diclofenac sodium 75 mg tablet,delayed release (DR/EC) 75 mg PO BID PRN (Reason: pain) Qty: 60 2RF Rx Instructions: WITH FOOD Print Language: Luxembourgish Instructions: Muscle Strain (ED) Additional Instructions: limit use of right arm for lifting. use ibuprofen or similar for pain and follow up with your doctor next week for recheck Referrals: Tea Donovan NP [Primary Care Provider] - 1 week
--- NOTE | 2025-02-04 22:10 | PC.NURSE ---
i updated this patient about her plan of care: arm x-ray this patient voices no concerns, needs and shows no signs of distress
--- NOTE | 2025-02-04 22:50 | PC.NURSE ---
i gave this patient verbal and written discharge orders and this patient voices yes to understanding these. at time of discharge this patient voices no concerns,needs and shows no signs of distress
== END 2025-02-04 22:49 | disposition home or self-care (01) ==
PROVIDERS: Emergency Provider Internal Medicine; PCP Nurse Practitioner Family
DX: S46.211A Strain of muscle, fascia and tendon of other parts of biceps, right arm, initial encounter (principal); X50.0XXA Overexertion from strenuous movement or load, initial encounter; Z87.891 Personal history of nicotine dependence
CPT/HCPCS: 73080; 99283